=== PATIENT | female | born 2000 | race Two or more races ===

== ENCOUNTER 2023-06-06 10:24 | Outpatient (REF) | payer OTHER, SELFPAY ==
[2023-06-06 12:16] LABS: Estimated Average Glucose 103 mg/dL; Hemoglobin A1c % 5.2 % (<6.0)
[2023-06-07 05:21] LABS: HIV AB/AG Nonreactive (Nonreactive); HIV Num 1 0.05 S/CO (0.00-0.99)
== END 2023-06-06 10:25 | disposition home or self-care (01) ==
LOC: HO.LAB 10:24
PROVIDERS: Visit Provider Family Medicine Adult Medicine
DX: Z13.9 Encounter for screening, unspecified (principal); Z11.4 Encounter for screening for human immunodeficiency virus [HIV]
CPT/HCPCS: 36415; 83036; 87389

== ENCOUNTER 2023-06-18 10:26 | Emergency (ER) | payer OTHER, SELFPAY ==
[2023-06-18 10:32] VITALS: BP 97/55; PULSE 63; RESP 16; TEMP 36.6; O2SAT 100; BMI 19.6
[2023-06-18 10:46] LABS: MANUAL DIFF FLAG NO
[2023-06-18 10:47] LABS: Basophils Percent Auto 0.3 % (0-2); Eosinophils Absolute Auto 0.1 X10*3/uL (0.0-0.4); Eosinophils Percent Auto 1.9 % (0-4); Hematocrit 36.3 % (37.0-47.0); Hemoglobin 12.4 g/dl (12.0-16.0); Imm Gran Abs Auto 0.01 X10*3/uL (0.00-0.03); Imm Gran Pct Auto 0.2 % (0.0-0.4); Lymphocytes Absolute Auto 1.3 X10*3/uL (1.2-4.9); Lymphocytes Percent Auto 21.2 % (20-40); Mean Corpuscular HGB Conc 34.2 g/dl (31.0-35.0); Mean Corpuscular Hemoglobin 30.2 pg (27.0-33.0); Mean Corpuscular Volume 88.3 fL (80.0-98.0); Mean Platelet Volume 10.2 fL (9.4-12.3); Monocytes Absolute Auto 0.5 X10*3/uL (0.1-1.2); Monocytes Percent Auto 7.6 % (2-11); Neutrophils Absolute Auto 4.3 x10*3/uL (2.0-8.3); Neutrophils Percent Auto 68.8 % (45-73); Platelet Count 236 X10*3/uL (160-400); Red Blood Count 4.11 X10*6/uL (4.20-5.50); Red Cell Distribution Width 12.2 % (11.0-16.0); White Blood Count 6.2 X10*3/uL (4.8-10.8)
--- NOTE | 2023-06-18 10:52 | ED_ITS ---
HPI - General Adult General Chief complaint: Headache Stated complaint: migraine Time Seen by Provider: 06/18/23 10:51 Source: patient Mode of arrival: ambulatory Limitations: no limitations History of Present Illness HPI narrative: Patient is a 23 year old assigned female at with a history of migraines presenting to the emergency department today with a migraine and nausea. Patient states that over the last day she has had a migraine that is not resolving. Patient states that she believes she is nauseous because of the food [employer] is feeding her. Patient denies any dizziness, lightheadedness, vomiting, fever, chills, blurry vision, double vision, loss of vision, chest pain, difficulty breathing, shortness of breath, back pain, night sweats, pain with urination, increased urinary frequency, increased urinary urgency, blood in her urine or stool, syncope or a near syncopal episode, recent trauma or falls, bowel incontinence, bladder incontinence, bowel retention, bladder retention, or any other complaints at this time. Onset (ago): hour(s) Relieving factors: none Exacerbating factors: none Associated symptoms: headaches and nausea/vomiting Treatments prior to arrival: other (sumatriptan) Related Data Previous Rx's Medication Instructions Recorded ondansetron 4 mg disintegrating 4 mg PO Q8H 3 days #9 tabs 06/18/23 tablet vdhgmpjcwb-jvjervkzgtlqt-tfncyxzx 1 cap PO TID PRN pain #14 caps 06/19/23 50 mg-300 mg-40 mg capsule (Fioricet) ketorolac 10 mg tablet 10 mg PO Q8H PRN pain #10 tabs 06/19/23 Allergies Allergy/AdvReac Type Severity Reaction Status Date / Time No Known Allergies Allergy Verified 06/18/23 10:32 Review of Systems 2 Constitutional: Constitutional: Reports no additional constitutional complaints, Denies chills, Denies fever(s), Reports headache(s) and Denies night sweats Eyes: Eyes: Reports no additional eye complaints, Denies blurry vision, Denies change in vision, Denies diplopia, Denies eye discharge, Denies loss of vision and Denies eye pain ENT: Denies dizziness and Reports headache(s) Cardiovascular: Cardiovascular: Reports no additional cardiovascular complaints, Denies chest pain, Denies lightheadedness, Denies Loss of Consciousness and Denies dyspnea Respiratory: Respiratory: Reports no additional respiratory complaints and Denies dyspnea Gastrointestinal: Gastrointestinal: Reports no additional gastrointestinal complaints, Denies melena, Denies hematochezia, Denies change in bowel habits, Denies change in stool character, Reports nausea and Denies vomiting Genitourinary: Genitourinary: Denies hematuria, Denies urinary frequency, Denies dysuria, Denies urinary incontinence, Denies urinary hesitancy and Denies urinary urgency Musculoskeletal: Musculoskeletal: Reports no additional musculoskeletal complaints, Denies numbness and Denies tingling Neurologic: Denies dizziness, Reports headache(s), Denies loss of vision, Denies numbness and Denies tingling Psychiatric: Psychiatric: Reports no additional psychiatric complaints Endocrine: Endocrine: Reports no additional endocrine complaints Hematologic/Lymphatic: Hematologic/Lymphatic: Reports no additional hematologic/lymphatic complaints Allergic/Immunologic: Allergic/Immunologic: Reports no additional allergic/immunologic complaints [facility] Past Medical History Attestation statement: The following information was validated with the patient. Source: old records reviewed and nursing notes reviewed Medical History (Updated 06/19/23 @ 01:35 by Geena Olsen MD) Migraine Social History Social History Smoked in Last 30 Days: No Advance Directives: No Advance Directives Information Provided: No Patient : No Physical Exam ED Vital Signs: Vital Signs - 24 hr 06/18/23 10:32 06/18/23 10:57 06/18/23 13:32 Temperature 97.9 F 98.0 F Pulse Rate 63 75 74 Respiratory Rate 16 16 16 Blood Pressure 97/55 L 107/74 109/76 Pulse Oximetry 100 100 100 Oxygen Delivery Method Room Air Room Air Room Air 06/18/23 16:09 06/18/23 16:10 Temperature 97.8 F 97.9 F Pulse Rate 77 77 Respiratory Rate 14 14 Blood Pressure 113/70 113/70 Pulse Oximetry 99 99 Oxygen Delivery Method Room Air Room Air BMI result Body Mass Index 19.6 Const General: cooperative, no acute distress, alert and awake Nutritional Appearance: well nourished Orientation/consciousness: patient oriented x3 Limitations: no limitations HENMT Head: Yes normal to inspection and Yes atraumatic Ears: hearing grossly normal bilaterally and external ears normal General nose exam: Normal external nose present, no nasal discharge noted and no epistaxis Face and sinus: Yes normal facial exam, No abrasion and No laceration Mouth: Normal oral and palatal mucosa present, no drooling and no muffled voice Eyes General: appearance normal, both eyes and all related structures Periorbital: periorbital findings normal Eyelids: Yes eyelids normal Conjunctivae: conjunctivae normal Pupils: Equal, round and reactive pupils present EOM: EOMs intact bilaterally Neck Neck: Yes normal visual inspection, Yes full ROM and Yes no lymphadenopathy Chest Chest palpation & inspection: normal inspection of the chest Resp Effort & Inspection: normal respiratory effort and able to speak in complete sentences GI Inspection: Yes normal to inspection Palpation (GI): Soft to palpation, not firm, nontender and no guarding Neuro General: patient oriented x3 and moves all extremities Cranial nerves: Yes Equal, round and reactive pupils present Cognition (Neuro): normal cognition Motor exam (neuro): 5/5 motor strength present throughout Sensory Exam: Normal double simultaneous stimulation for sensation Coordination: ggbpqp-gv-wzgu test normal Extrem General: Yes normal to inspection, Yes full ROM and Yes capillary refill normal Psych Appearance: grossly normal Mental Status: mental status grossly normal Affect: normal affect Attitude: cooperative Thought process: Normal thought process present Thought content: Normal thought content present Insight: Good insight present (Psych) Medications Administered Discontinued Medications Generic Name Dose Route Start Last Admin Trade Name Aryanq PRN Reason Stop Dose Admin Hydromorphone HCl 0.5 mg 06/18/23 12:16 06/18/23 12:39 Hydromorphone Hcl 0.5 Mg/0.5 Ml Syringe IVPUSH 06/18/23 12:17 0.5 mg ONCE ONE Administration Protocol Sodium Chloride 1,000 mls @ 999 mls/hr 06/18/23 11:00 06/18/23 12:27 Ns IV 06/18/23 12:00 Infused .Q1H1M DHARMESH Infusion Sodium Chloride 1,000 mls @ 999 mls/hr 06/18/23 13:00 06/18/23 15:45 Ns IV 06/18/23 14:00 Infused .Q1H1M DHARMESH Infusion Ketorolac Tromethamine 15 mg 06/18/23 10:52 06/18/23 11:09 Ketorolac Tromethamine 15 Mg/Ml Vial IVPUSH 06/18/23 10:53 15 mg ONCE ONE Administration Ondansetron HCl 4 mg 06/18/23 10:52 06/18/23 11:08 Ondansetron Hcl 4 Mg/2 Ml Vial IVPUSH 06/18/23 10:53 4 mg ONCE ONE Administration Medical Decision Making Medical Decision Making [facility] Narrative: Patient is a 23 year old assigned female at with no reported medical history presenting to the emergency department today with a migraine headache. Patient's physical exam was unremarkable. Patient's blood work was unremarkable. I explained my physical exam findings as well as all test results to the patient. I answered all questions asked by the patient. I stressed the importance of the patient taking her medication as prescribed. I stressed the importance of the patient following up with her primary care provider. I stressed the importance of the patient returning to the emergency department immediately if her symptoms were to worsen or if she were to develop any dizziness, shortness of breath, difficulty breathing, chest pain, blurry vision, loss of vision, nausea, vomiting, abdominal pain, fever, chills, back pain, or any other complaints. Patient verbalized agreement and understanding with this treatment plan and discharge. Differential Diagnosis Differential Diagnoses: The differential diagnosis associated with the presentation includes Migraine headache Headache Admission/Observation Consideration of admission/observation: Escalation of care including admission/observation considered Patient would have been admitted to the hospital had her work up had any findings where hospital admission was appropriate and her clinical presentation warranted hospital admission. Lab Data [facility] Lab Attestation statement: I reviewed the patient's lab results. My interpretation of these results are in the [facility] Rationale portion of this note. 06/18/23 10:42 06/18/23 10:42 Labs: Lab Results 06/18/23 Range/Units 10:42 WBC 6.2 (4.8-10.8) X10*3/uL RBC 4.11 L (4.20-5.50) X10*6/uL Hgb 12.4 (12.0-16.0) g/dl Hct 36.3 L (37.0-47.0) % MCV 88.3 (80.0-98.0) fL MCH 30.2 (27.0-33.0) pg MCHC 34.2 (31.0-35.0) g/dl RDW 12.2 (11.0-16.0) % Plt Count 236 (160-400) X10*3/uL MPV 10.2 (9.4-12.3) fL Immature Gran % (Auto) 0.2 (0.0-0.4) % Neut % (Auto) 68.8 (45-73) % Lymph % (Auto) 21.2 (20-40) % [place] % (Auto) 7.6 (2-11) % Eos % (Auto) 1.9 (0-4) % Baso % (Auto) 0.3 (0-2) % Lymph # (Auto) 1.3 (1.2-4.9) X10*3/uL [place] # (Auto) 0.5 (0.1-1.2) X10*3/uL Eos # (Auto) 0.1 (0.0-0.4) X10*3/uL Baso # (Auto) 0.0 (0.0-0.2) X10*3/uL Abs Immat Gran (auto) 0.01 (0.00-0.03) X10*3/uL Absolute Neuts (auto) 4.3 (2.0-8.3) x10*3/uL Absolute Nucleated RBC 0.000 (0.0-0.012) X10*3/uL Nucleated RBC % (auto) 0.0 (0.0-0.2) /100WBC Sodium 140 (135-145) mmol/L Potassium 3.9 (3.3-5.1) mmol/L Chloride 105 (96-108) mmol/L Carbon Dioxide 27 (22-29) mmol/L Anion Gap 12 (12-20) BUN 12 (9-16) mg/dL Creatinine 0.69 (0.5-1.4) mg/dL Estim Creat Clear Calc 82.5 Estimated GFR > 60 Random Glucose 88 (60-115) mg/dL Calcium 9.2 (8.4-10.2) mg/dL Total Bilirubin 0.4 (0.0-1.0) mg/dL AST 13 (5-31) U/L ALT 14 (0-31) U/L Alkaline Phosphatase 48 (39-117) U/L Total Protein 6.9 (6.5-8.0) g/dL Albumin 4.2 (3.5-5.0) g/dL Beta HCG, Quant < 2 mIU/mL Critical Care Time Critical Care Time Critical Care Time: Yes Total Critical Care Time: 79 Attestation: I spent 79 minutes of Critical Care Time with this patient. This does not include time spent on separately reported billable procedures. Discharge Plan Discharge Clinical Impression: Migraine Patient Disposition: Home, Self-Care Instructions: Migraine Headache (ED) Additional Instructions: Follow up with your primary care provider. Return to the emergency department immediately if your symptoms worsen or if you develop any dizziness, shortness of breath, difficulty breathing, chest pain, blurry vision, loss of vision, nausea, vomiting, abdominal pain, fever, chills, back pain, or any other complaints. Prescriptions: New ondansetron 4 mg tablet,disintegrating 4 mg PO Q8H 3 Days Qty: 9 0RF No Action xzfsjdqull-kkhmwyqtdpulc-onin [Fioricet] 50-300-40 mg capsule 1 cap PO TID PRN (Reason: pain) Qty: 14 0RF ketorolac 10 mg tablet 10 mg PO Q8H PRN (Reason: pain) Qty: 10 0RF Rx Instructions: Do not use NSAIDs with this medication Referrals: [facility] [place] [facility] [place] [Provider Group] (Call to establish and follow up with a primary care provider. If you already have a primary care provider, please follow up with them.) [facility] [place] [place] [facility] [Provider Group] (Call to establish and follow up with a primary care provider. If you already have a primary care provider, please follow up with them.) [facility] [place] [place] [facility],Julia [Provider Group] (Call to establish and follow up with a primary care provider. If you already have a primary care provider, please follow up with them.) Stand Alone Forms: Work/School Release Interventions: ED Discharge Assessment Last Done: 06/18/23 16:10 Discharge Date/Time: 06/18/23 16:12 Print Language: Bengali
[2023-06-18 10:57] VITALS: BP 107/74; PULSE 75; RESP 16; TEMP 36.7; O2SAT 100
[2023-06-18 11:07] LABS: Alanine Aminotransferase 14 U/L (0-31); Albumin Level 4.2 g/dL (3.5-5.0); Alkaline Phosphatase 48 U/L (39-117); Anion Gap 12 (12-20); Aspartate Amino Transferase 13 U/L (5-31); Bilirubin Total 0.4 mg/dL (0.0-1.0); Blood Urea Nitrogen 12 mg/dL (9-16); Calcium 9.2 mg/dL (8.4-10.2); Carbon Dioxide 27 mmol/L (22-29); Chloride 105 mmol/L (96-108); Creatinine Clr Calc Pharmacy 82.5; Estimated Glomerular Filt Rate > 60; Glucose Random 88 mg/dL (60-115); Potassium 3.9 mmol/L (3.3-5.1); Sodium 140 mmol/L (135-145); Total Protein 6.9 g/dL (6.5-8.0)
[2023-06-18] MEDS: ondansetron HCL 4 MG/2 ML VIAL IVPUSH (11:08)
[2023-06-18] MEDS: Ketorolac Tromethamine 15 MG/ML VIAL IVPUSH (11:09)
[2023-06-18] MEDS: 0.9 % Sodium Chloride 1,000 ML 999 ML IV ×2 (11:11→13:14)
--- NOTE | 2023-06-18 11:14 | PC.NURSE ---
Pt coming from school. Pt reports migraine since last night along with nausea and upset stomach. Pt does report hx of migraines, takes sumatriptan at home but reports it does work. Pt reports 10/10 pain in her head at this time. Pt is alert and oriented, breathing even and unlabored, skin WNL. Pt resting in bed, IV placed in left AC 20G, pt medicated per MAY. Pt requests to sleep at this time.
[2023-06-18 11:34] LABS: HCG Quantitative < 2 mIU/mL
[2023-06-18] MEDS: HYDROmorphone HCl 0.5 MG/0.5 ML SYRINGE IVPUSH (12:39)
[2023-06-18 13:32] VITALS: BP 109/76; PULSE 74; RESP 16; O2SAT 100
[2023-06-18 16:09] VITALS: BP 113/70; PULSE 77; RESP 14; TEMP 36.6; O2SAT 99
[2023-06-18 16:10] VITALS: BP 113/70; PULSE 77; RESP 14; TEMP 36.6; O2SAT 99
--- NOTE | 2023-06-18 16:10 | PC.NURSE ---
Pt reported she has a ride from her school coming to get her. Pt is alert and oriented, ambulatory w/ steady gait and does void upon discharge.
== END 2023-06-18 16:12 | disposition home or self-care (01) ==
PROVIDERS: Physician Assistant Medical; Emergency Provider Emergency Medicine
DX: G43.909 Migraine, unspecified, not intractable, without status migrainosus (principal); R11.2 Nausea with vomiting, unspecified; Z79.899 Other long term (current) drug therapy
CPT/HCPCS: 36415; 80053; 84702; 85025; 96361; 96374; 96375; 99285; J1170; J1885; J2405

== ENCOUNTER 2023-06-18 20:27 | Emergency (ER) | payer OTHER, SELFPAY ==
--- NOTE | ~2023-06-18 | CT_ITS ---
EXAMINATION: CT HEAD WITHOUT CONTRAST CLINICAL INFORMATION: Headache. COMPARISON: None available. TECHNIQUE: Contiguous axial imaging was performed from the skull base to vertex without intravenous administration of contrast. This CT examination was performed using dose optimization techniques as appropriate, variously including the following: *Automated exposure control *Adjustment of mA and/or kV according to patient size (this includes techniques or standardized protocols for targeted exams where dose is matched to indication/reason for exam; i.e. extremities or head) *Use of iterative reconstruction technique DLP: 559 mGy-cm FINDINGS: The lateral, third and fourth ventricles are normally outlined. The cortical sulci and basal cisterns are normally outlined as well. There is a questionable area of diminished attenuation right occipital lobe. There is no hemorrhage or midline shift. The extra-axial spaces are unremarkable. Calvarium: Intact. Maxillofacial sinuses and mastoids: Clear as visualized. CT/CT head/brain wo IV con IMPRESSION: 1. Questionable area of diminished attenuation right occipital lobe. This could be artifactual. 2. No hemorrhage.
[2023-06-18 20:32] VITALS: BP 122/68; PULSE 95; RESP 22; TEMP 36.8; O2SAT 100; BMI 19.6
--- NOTE | 2023-06-18 23:50 | ED_ITS ---
HPI - General Adult General Chief complaint: General Medical Stated complaint: Difficulty breathing after prescribed meds Time Seen by Provider: 06/18/23 23:38 Source: patient Mode of arrival: ambulatory Limitations: no limitations History of Present Illness HPI narrative: Patient comes to the emergency room complaining of a migraine headache. Patient was seen here earlier today for a migraine headache, discharged home, states that she was having more headache, nausea, heaviness reading but no difficulty breathing or swallowing. Patient states that she has sumatriptan at home and is not helping her migraine headache. Related Data Previous Rx's Medication Instructions Recorded ondansetron 4 mg disintegrating 4 mg PO Q8H 3 days #9 tabs 06/18/23 tablet [id number]-kayqaatblekgn-okvcbwhc 1 cap PO TID PRN pain #14 caps 06/19/23 50 mg-300 mg-40 mg capsule (Fioricet) ketorolac 10 mg tablet 10 mg PO Q8H PRN pain #10 tabs 06/19/23 Allergies Allergy/AdvReac Type Severity Reaction Status Date / Time No Known Allergies Allergy Verified 06/18/23 10:32 Review of Systems Review of Systems: Constitutional : No Weight loss, No Fever, No Chills, No Night Sweats, No Fatigue, No Malaise ENT/Mouth : No Hearing loss, No Ear Pain, No Nasal Congestion, No Sinus Pain, No Hoarseness, No sore throat, No Rhinorrhea, No Swallowing Difficulty Eyes: No Eye Pain, No Swelling, No Redness, No Foreign Body, No Discharge, No Vision Changes Cardiovascular : No Chest Pain, No SOB, No Dyspnea on Exertion, No Orthopnea, No Edema, No Palpitations Respiratory : No Cough, No Sputum, No Wheezing, No Smoke Exposure, No Dyspnea Gastrointestinal : No Nausea, No Vomiting, No Diarrhea, No Constipation, No abdominal Pain, No Hematochezia, No Melena Genitourinary : no irregular bleeding, No Dysuria, No Urinary Frequency, No Hematuria, No Urinary Incontinence, No Urgency, No Flank Pain, No Urinary Flow Changes, No Hesitancy Musculoskeletal : No joint pain, No Myalgias, No Joint Swelling Skin : No Skin Lesions, No rash Neuro : No Weakness, No Numbness, No Paresthesias, No Loss of Consciousness, No Dizziness, complaining of migraine headache Psych : No Anxiety/Panic, No Depression, No SI/HI/AH/VH, No Social Issues, Heme/Lymph: No Bruising, No Bleeding,No Lymphadenopathy Endocrine : No Polyuria, No Polydipsia, No Temperature Intolerance [facility] Past Medical History Medical History (Updated 06/19/23 @ 01:35 by Geena Olsen MD) Migraine Social History Social History Smoked in Last 30 Days: No Advance Directives: No Advance Directives Information Provided: No Patient : No Physical Exam ED Vital Signs: Vital Signs - 24 hr 06/18/23 20:32 06/19/23 00:12 Temperature 98.3 F 97.6 F Pulse Rate 95 75 Respiratory Rate 22 H 16 Blood Pressure 122/68 121/71 Pulse Oximetry 100 100 Oxygen Delivery Method Room Air Room Air BMI result Body Mass Index 19.6 Const Other: Appearance: Alert. Oriented X3. No acute distress. Eyes: Pupils equal, round and reactive to light. Patient has photophobia ENT: Pharynx normal. Neck: Normal inspection. Neck supple. No lymph nodes noted. No crepitus CVS: Normal heart rate and rhythm. Pulses normal. Normal S1 and S2 Respiratory: No respiratory distress. Breath sounds normal. No Wheezing. No rales Abdomen: Soft and nontender. No rigidity. No distention. Skin: Skin warm and dry. Normal skin color. Normal skin turgor. Extremities: No lower extremity edema. No Lacerations. No Rash Neuro: Oriented X 3. No motor deficit. No sensory deficit. Moving all extremities. No slurred speech. CN 2 through 12 grossly intact Psych: calm, cooperative, normal affect Course Course Course Narrative: -patient receiving IV fluids, ketorolac. Last dose was over 14 hours ago,, Benadryl, and Fioricet -I reviewed patient's labs from earlier today, no acute hematology or chemistry abnormalities. -patient has no neurological deficits Medications Administered Discontinued Medications Generic Name Dose Route Start Last Admin Trade Name Freq PRN Reason Stop Dose Admin Acetaminophen/Butalbital/Caffeine 1 tab 06/18/23 23:50 06/19/23 00:39 Butalb/Acetamin/Caff 50/325/40 Tablet PO 06/18/23 23:51 1 tab ONCE ONE Administration Diphenhydramine HCl 50 mg 06/18/23 23:49 06/19/23 00:39 Diphenhydramine Hcl 50 Mg/Ml Vial IVPUSH 06/18/23 23:50 50 mg ONCE ONE Administration Sodium Chloride 1,000 mls @ 999 mls/hr 06/18/23 23:49 06/19/23 01:50 Ns IVCONT 06/19/23 00:49 Infused .Q1H1M ONE Infusion Ketorolac Tromethamine 30 mg 06/18/23 23:49 06/19/23 00:39 Ketorolac Tromethamine 30 Mg/Ml Vial IVPUSH 06/18/23 23:50 30 mg ONCE ONE Administration Metoclopramide HCl 10 mg 06/18/23 23:49 06/19/23 00:39 Metoclopramide Hcl 10 Mg/2 Ml Vial IVPUSH 06/18/23 23:50 10 mg ONCE ONE Administration Medical Decision Making Medical Decision Making MDM Narrative: -patient states that she has improvement with her headache. -discussed with the patient to follow-up with neurology. -since sumatriptan does not work, I switched her medication to Fioricet. -my interpretation of head CT: No intracranial abnormality. No bleed. Differential Diagnosis Differential Diagnoses: The differential diagnosis associated with the presentation includes (Migraine headache, tension headache, medication side effect) Admission/Observation Consideration of admission/observation: Escalation of care including admission/observation considered (Given patient's symptoms, admission was considered) Independent Interpretation I performed an independent interpretation of an: CT Scan Critical Care Time Critical Care Time Critical Care Time: Yes Total Critical Care Time: 60 Attestation: I have personally provided critical care time. Time includes review of lab data, radiology results, discussion with consultants, and monitoring for potential decompensation. Intervention performed as documented. Discharge Plan Discharge Clinical Impression: Migraine Patient Disposition: Home, Self-Care Instructions: Migraine Headache (ED) Additional Instructions: Please follow-up with your primary care physician tomorrow. If you have any worsening or new symptoms, please return to the emergency room or call 911 Prescriptions: New zazufsbvvm-msrsztuuphujy-jyhp [Fioricet] 50-300-40 mg capsule 1 cap PO TID PRN (Reason: pain) Qty: 14 0RF ketorolac 10 mg tablet 10 mg PO Q8H PRN (Reason: pain) Qty: 10 0RF Rx Instructions: Do not use NSAIDs with this medication No Action ondansetron 4 mg tablet,disintegrating 4 mg PO Q8H 3 Days Qty: 9 0RF
[2023-06-19 00:12] VITALS: BP 121/71; PULSE 75; RESP 16; TEMP 36.4; O2SAT 100
[2023-06-19] MEDS: 0.9 % Sodium Chloride 1,000 ML 999 ML IVCONT (00:36)
[2023-06-19] MEDS: diphenhydrAMINE HCL 50 MG/ML VIAL IVPUSH (00:39)
[2023-06-19] MEDS: Ketorolac Tromethamine 30 MG/ML VIAL IVPUSH (00:39)
[2023-06-19] MEDS: Butalb/Acetamin/Caff 50/325/40 TABLET 1 TAB PO (00:39)
[2023-06-19] MEDS: Metoclopramide HCl 10 MG/2 ML VIAL IVPUSH (00:39)
[2023-06-19 03:20] VITALS: BP 112/67; PULSE 90; RESP 16; TEMP 36.6; O2SAT 100
[2023-06-19 04:33] VITALS: BP 112/67; PULSE 90; RESP 17; TEMP 36.6; O2SAT 98
== END 2023-06-19 04:34 | disposition home or self-care (01) ==
PROVIDERS: Emergency Provider Emergency Medicine
DX: G43.909 Migraine, unspecified, not intractable, without status migrainosus (principal); R06.02 Shortness of breath; R11.2 Nausea with vomiting, unspecified; Z79.899 Other long term (current) drug therapy
CPT/HCPCS: 70450; 96361; 96374; 96375; 99284; J1200; J1885; J2765

== ENCOUNTER 2023-06-21 15:05 | Emergency (ER) | payer OTHER, SELFPAY ==
[2023-06-21 15:16] VITALS: BP 114/72; PULSE 70; O2SAT 98
[2023-06-21 15:56] VITALS: BP 120/65; PULSE 88; RESP 14; TEMP 36.6; O2SAT 99; BMI 19.5
--- NOTE | 2023-06-21 15:59 | ED_ITS ---
HPI - General Adult General Chief complaint: Headache Stated complaint: progressive migraine and vertigo. Seen 4 days ago Time Seen by Provider: 06/21/23 20:52 History of Present Illness HPI narrative: The patient is a 23-year-old female who presents complaining of a headache. The patient had come here 3 days ago complaining of a headache and was thought to have a migraine headache. She was treated and released. She returned later the same day complaining of a headache. At the 2nd visit she had a CT scan in addition to the treatment for her headache. The patient felt better. The CT scan showed a questionable abnormality in the occipital lobe but she had no visual field deficits and she looked well and was discharged. Apparently the patient presented following day to [facility]'s Emergency room still complaining of a headache. An MRI was done which showed no abnormalities. The patient says that last night she started to feel her headache returned. This was associated with nausea. Today she apparently had some syncopal episodes. She has a history of vasovagal syncope. The patient is currently participating in [employer], staying at a [employer] at the [facility]. She is apparently new in the program. Prior to entering the program she had been living in [place] with a somewhat tenuous living situation. She would tried living and then with her sister. She says that at 1 point she was almost homeless. The patient says that since starting with [employer] she has had a lot of difficult interpersonal reactions with other women in the program. She finds the stressful. She says that she has had depression before but she has never been hospitalized for depression. She finds the transition to [facility] very stressful. She has not suicidal. l Related Data Previous Rx's Medication Instructions Recorded ondansetron 4 mg disintegrating 4 mg PO Q8H 3 days #9 tabs 06/18/23 tablet [id number]-nxpomwcxvlmid-arontmrp 1 cap PO TID PRN pain #14 caps 06/19/23 50 mg-300 mg-40 mg capsule (Fioricet) ketorolac 10 mg tablet 10 mg PO Q8H PRN pain #10 tabs 06/19/23 Allergies Allergy/AdvReac Type Severity Reaction Status Date / Time No Known Allergies Allergy Verified 06/18/23 10:32 Review of Systems 2 Review of Systems: Yes all other systems are reviewed and are negative PMFSH Past Medical History Medical History (Updated 06/21/23 @ 23:05 by Presley Barbour MD) Migraine Social History Social History Advance Directives: No Advance Directives Information Provided: No Physical Exam ED Vital Signs: Vital Signs - 24 hr 06/21/23 23:23 06/22/23 00:24 Temperature 98.0 F 98.0 F Pulse Rate 75 75 Respiratory Rate 18 18 Blood Pressure 110/70 110/70 Pulse Oximetry 98 98 Oxygen Delivery Method Room Air Room Air BMI result Body Mass Index 19.5 Const Other: The patient is a healthy-looking 23-year-old who was awake and alert. She did not seem uncomfortable or in distress. HENMT Other: Face is symmetrical. Mucous membranes moist. Eyes Other: Pupils are round equal, conjunctivae clear, extraocular movements intact Resp Effort & Inspection: normal respiratory effort Auscultation: clear to auscultation bilaterally Cardio Rate: regular rate Rhythm: regular rhythm Heart sounds: S1 normal heart sound present and S2 normal heart sound present Skin Other: Skin is dry and unremarkable Neuro Other: The patient is awake and alert. She looks entirely well. She had a nontoxic demeanor. Speech was clear eye movements intact. Moving all 4 extremities symmetrically with normal coordination. Grossly neurologically intact Extrem Other: No peripheral edema Course Course Course Narrative: RME: 23 yold female presents to the ED for migraine exacerbation. Patient seen here on tuesday and had normal MRI at [facility]. labs ordered. Medications Administered Discontinued Medications Generic Name Dose Route Start Last Admin Trade Name Marcellus PRN Reason Stop Dose Admin Diphenhydramine HCl 25 mg 06/21/23 21:18 06/21/23 21:37 Diphenhydramine Hcl 50 Mg/Ml Vial IVPUSH 06/21/23 21:19 25 mg ONCE ONE Administration Sodium Chloride 1,000 mls @ 999 mls/hr 06/21/23 21:30 06/21/23 21:33 Ns IV 06/21/23 22:30 999 mls/hr .Q1H1M DHARMESH Administration Ketorolac Tromethamine 15 mg 06/21/23 21:18 06/21/23 21:37 Ketorolac Tromethamine 15 Mg/Ml Vial IVPUSH 06/21/23 21:19 15 mg ONCE ONE Administration Metoclopramide HCl 10 mg 06/21/23 21:18 06/21/23 21:38 Metoclopramide Hcl 10 Mg/2 Ml Vial IVPUSH 06/21/23 21:19 10 mg ONCE ONE Administration Medical Decision Making Medical Decision Making [facility] Narrative: The patient is a 23-year-old female who presents complaining of a headache. She was here 3 days ago complained of a headache and was treated for a migraine. She was treated and released and then returned several hours later still complaining of the headache. She had a CT scan of the head that was essentially normal with a question of a subtle possible abnormality in the right occipital lobe. She had no visual field deficits to correlate with any occipital lobe abnormality. She was discharged. Severe headache and went to the [facility] ER where she had an MRI that was normal. She now returns again with a complaint of headache and frustration that she continues to have these headaches. During my interview the patient looked entirely well and did not seem to show any evidence of discomfort. She spoke a great deal about the psychosocial difficulty she is having a [employer]. She seems to have difficulty with her peers at [employer]. She seems to get along well with the staff. She seems to like the director of the program and she also apparently has seen a therapist whom she likes. She has not suicidal. My overall impression is that the patient has headaches are probably a manifestation of the stress she has been experiencing in her new program. The patient asked a lot about additional testing or evaluation that could be done for her headaches. I explained that given her normal MRI and the lack of any other concerning findings on her exam and her workup that a spinal tap is probably not indicated. That. Ultimately she was treated with ketorolac, metoclopramide, and diphenhydramine that seemed to feel better and was comfortable being discharged to returned to her program. With the patient's permission I had spoken to her nutrition program instructor who seems to be aware of the patient's psychosocial stressors. Lab Data 06/21/23 21:33 06/21/23 21:33 Labs: Lab Results 06/21/23 Range/Units 21:33 WBC 7.8 (4.8-10.8) X10*3/uL RBC 4.02 L (4.20-5.50) X10*6/uL Hgb 12.3 (12.0-16.0) g/dl Hct 36.4 L (37.0-47.0) % MCV 90.5 (80.0-98.0) fL MCH 30.6 (27.0-33.0) pg MCHC 33.8 (31.0-35.0) g/dl RDW 12.5 (11.0-16.0) % Plt Count 249 (160-400) X10*3/uL MPV 10.3 (9.4-12.3) fL Immature Gran % (Auto) 0.1 (0.0-0.4) % Neut % (Auto) 57.8 (45-73) % Lymph % (Auto) 31.7 (20-40) % [place] % (Auto) 8.2 (2-11) % Eos % (Auto) 2.1 (0-4) % Baso % (Auto) 0.1 (0-2) % Lymph # (Auto) 2.5 (1.2-4.9) X10*3/uL [place] # (Auto) 0.6 (0.1-1.2) X10*3/uL Eos # (Auto) 0.2 (0.0-0.4) X10*3/uL Baso # (Auto) 0.0 (0.0-0.2) X10*3/uL Abs Immat Gran (auto) 0.01 (0.00-0.03) X10*3/uL Absolute Neuts (auto) 4.5 (2.0-8.3) x10*3/uL Absolute Nucleated RBC 0.000 (0.0-0.012) X10*3/uL Nucleated RBC % (auto) 0.0 (0.0-0.2) /100WBC Sodium 144 (135-145) mmol/L Potassium 4.8 D (3.3-5.1) mmol/L Chloride 109 H (96-108) mmol/L Carbon Dioxide 27 (22-29) mmol/L Anion Gap 13 (12-20) BUN 10 (9-16) mg/dL Creatinine 0.77 (0.5-1.4) mg/dL Estim Creat Clear Calc 78.1 Estimated GFR > 60 Random Glucose 100 (60-115) mg/dL Calcium 9.3 (8.4-10.2) mg/dL Magnesium 1.8 (1.6-2.6) mg/dL Total Bilirubin 0.3 (0.0-1.0) mg/dL Direct Bilirubin 0.1 (0.0-0.5) mg/dL AST 15 (5-31) U/L ALT 14 (0-31) U/L Alkaline Phosphatase 44 (39-117) U/L Troponin I High Sens < 2.7 (<3.5-17.0) ng/L C-Reactive Protein < 0.04 (< or = 0.50) mg/dL Total Protein 7.0 (6.5-8.0) g/dL Albumin 4.1 (3.5-5.0) g/dL Beta HCG, Quant < 2 mIU/mL Ethyl Alcohol < 10 mg/dL Discharge Plan Discharge Clinical Impression: Migraine headache Patient Disposition: Home, Self-Care Additional Instructions: Your testing today is very reassuring. I am also very reassured by the normal MRI you had at [facility] the other day. Please follow up with your regular doctor's office. Return to the emergency room if worse Prescriptions: No Action ondansetron 4 mg tablet,disintegrating 4 mg PO Q8H 3 Days Qty: 9 0RF ieqrhxxyqx-fqtvgndshlyyn-trdf [Fioricet] 50-300-40 mg capsule 1 cap PO TID PRN (Reason: pain) Qty: 14 0RF ketorolac 10 mg tablet 10 mg PO Q8H PRN (Reason: pain) Qty: 10 0RF Rx Instructions: Do not use NSAIDs with this medication Interventions: ED Discharge Assessment Last Done: 06/22/23 00:24 Discharge Date/Time: 06/22/23 00:25
--- NOTE | 2023-06-21 21:17 | ECG_ITS ---
Test Reason : HEADACHE Blood Pressure : / mmHG Vent. Rate : 067 BPM Atrial Rate : 067 BPM P-R Int : 116 ms QRS Dur : 072 ms QT Int : 364 ms P-R-T Axes : 072 048 062 degrees QTc Int : 384 ms Normal sinus rhythm with sinus arrhythmia Normal ECG No previous ECGs available Referred By: Presley Barbour Electronically Signed By:Clark Coy
[2023-06-21] MEDS: 0.9 % Sodium Chloride 1,000 ML 999 ML IV (21:33)
[2023-06-21] MEDS: Ketorolac Tromethamine 15 MG/ML VIAL IVPUSH (21:37)
[2023-06-21] MEDS: diphenhydrAMINE HCL 50 MG/ML VIAL 25 MG IVPUSH (21:37)
[2023-06-21 21:38] LABS: MANUAL DIFF FLAG NO
[2023-06-21] MEDS: Metoclopramide HCl 10 MG/2 ML VIAL IVPUSH (21:38)
[2023-06-21 21:39] LABS: Basophils Percent Auto 0.1 % (0-2); Eosinophils Absolute Auto 0.2 X10*3/uL (0.0-0.4); Eosinophils Percent Auto 2.1 % (0-4); Hematocrit 36.4 % (37.0-47.0); Hemoglobin 12.3 g/dl (12.0-16.0); Imm Gran Abs Auto 0.01 X10*3/uL (0.00-0.03); Imm Gran Pct Auto 0.1 % (0.0-0.4); Lymphocytes Absolute Auto 2.5 X10*3/uL (1.2-4.9); Lymphocytes Percent Auto 31.7 % (20-40); Mean Corpuscular HGB Conc 33.8 g/dl (31.0-35.0); Mean Corpuscular Hemoglobin 30.6 pg (27.0-33.0); Mean Corpuscular Volume 90.5 fL (80.0-98.0); Mean Platelet Volume 10.3 fL (9.4-12.3); Monocytes Absolute Auto 0.6 X10*3/uL (0.1-1.2); Monocytes Percent Auto 8.2 % (2-11); Neutrophils Absolute Auto 4.5 x10*3/uL (2.0-8.3); Neutrophils Percent Auto 57.8 % (45-73); Platelet Count 249 X10*3/uL (160-400); Red Blood Count 4.02 X10*6/uL (4.20-5.50); Red Cell Distribution Width 12.5 % (11.0-16.0); White Blood Count 7.8 X10*3/uL (4.8-10.8)
[2023-06-21 22:11] LABS: Ethanol < 10 mg/dL; Troponin-I High Sensitivity < 2.7 ng/L (<3.5-17.0)
[2023-06-21 22:12] LABS: Alanine Aminotransferase 14 U/L (0-31); Albumin Level 4.1 g/dL (3.5-5.0); Alkaline Phosphatase 44 U/L (39-117); Anion Gap 13 (12-20); Aspartate Amino Transferase 15 U/L (5-31); Bilirubin Direct 0.1 mg/dL (0.0-0.5); Bilirubin Total 0.3 mg/dL (0.0-1.0); Blood Urea Nitrogen 10 mg/dL (9-16); C Reactive Protein < 0.04 mg/dL (< or = 0.50); Calcium 9.3 mg/dL (8.4-10.2); Carbon Dioxide 27 mmol/L (22-29); Chloride 109 mmol/L (96-108); Creatinine Clr Calc Pharmacy 78.1; Estimated Glomerular Filt Rate > 60; Glucose Random 100 mg/dL (60-115); Magnesium 1.8 mg/dL (1.6-2.6); Potassium 4.8 mmol/L (3.3-5.1); Sodium 144 mmol/L (135-145)
[2023-06-21 22:14] LABS: HCG Quantitative < 2 mIU/mL
[2023-06-21 23:23] VITALS: BP 110/70; PULSE 75; RESP 18; TEMP 36.7; O2SAT 98
[2023-06-22 00:24] VITALS: BP 110/70; PULSE 75; RESP 18; TEMP 36.7; O2SAT 98
== END 2023-06-22 00:25 | disposition home or self-care (01) ==
PROVIDERS: Emergency Provider Emergency Medicine
DX: G43.909 Migraine, unspecified, not intractable, without status migrainosus (principal); I49.8 Other specified cardiac arrhythmias; R11.0 Nausea; Z79.899 Other long term (current) drug therapy
CPT/HCPCS: 36415; 80048; 80076; 80307; 83735; 84484; 84702; 85025; 86140; 93005; 96374; 96375; 99284; J1200; J1885; J2765

== ENCOUNTER → 2023-06-21 21:17 | Outpatient (BNV) | payer OTHER, SELFPAY | PROVIDERS: Emergency Provider Emergency Medicine; Visit Provider Internal Medicine Cardiovascular Disease | DX: R51.9 Headache, unspecified (principal) | CPT/HCPCS: 93010 ==

== ENCOUNTER 2023-09-20 20:24 | Emergency (ER) | payer OTHER, SELFPAY ==
[2023-09-20 20:39] VITALS: BP 111/80; BP 118/76; PULSE 104; PULSE 75; RESP 18; TEMP 36.8; O2SAT 100; O2SAT 98; BMI 21.8
--- NOTE | 2023-09-20 20:42 | ED_ITS ---
HPI - General Adult General Chief complaint: Anxiety Stated complaint: ANXIETY Time Seen by Provider: 09/20/23 22:19 Source: patient Mode of arrival: ambulatory Limitations: no limitations History of Present Illness ED Provider: DR. Perry HPI narrative: 23-year-old female brought in by ambulance for evaluation of anxiety, patient with known history of anxiety that usually triggered by stress. Patient has been seen by therapist before for same symptoms, patient also was seen at [facility] earlier today for anxiety-related symptoms and chest pain. Patient now is calm, no headache, no weakness, no numbness. Related Data Previous Rx's ?Medication ?Instructions ?Recorded ondansetron 4 mg disintegrating 4 mg PO Q8H 3 days #9 tabs 06/18/23 tablet rbtngjyemq-depraanvzugtt-uwvqprsf 1 cap PO TID PRN pain #14 caps 06/19/23 50 mg-300 mg-40 mg capsule (Fioricet) ketorolac 10 mg tablet 10 mg PO Q8H PRN pain #10 tabs 06/19/23 Allergies Allergy/AdvReac Type Severity Reaction Status Date / Time No Known Allergies Allergy Verified 09/20/23 20:44 Review of Systems Review of Systems: All other systems are reviewed and are negative Constitutional: Reports as per HPI and Reports no additional constitutional complaints Eyes: Reports as per HPI and Reports no additional eye complaints Reports system reviewed and no additional complaints, except as documented Cardiovascular: Reports as per HPI and Reports no additional cardiovascular complaints Respiratory: Reports as per HPI and Reports no additional respiratory complaints Gastrointestinal: Reports as per HPI and Reports no additional gastrointestinal complaints Genitourinary: Reports no additional female genitourinary complaints Musculoskeletal: Reports no additional musculoskeletal complaints Skin/Breast: Reports system reviewed and no additional complaints, except as docu Psychiatric: Reports no additional psychiatric complaints Endocrine: Reports no additional endocrine complaints Hematologic/Lymphatic: Reports no additional hematologic/lymphatic complaints Allergic/Immunologic: Reports no additional allergic/immunologic complaints Reports system reviewed and no additional complaints, except as documented and Reports Abnormal speech present [facility] Past Medical History Medical History Migraine Social History Social History Smoked in Last 30 Days: No Advance Directives: No Advance Directives Information Provided: No Do you have a plan to hurt others: No Plan Patient : No Physical Exam ED Vital Signs: Vital Signs - 24 hr 09/20/23 20:39 Temperature 98.2 F Pulse Rate 75 Respiratory Rate 18 Blood Pressure 118/76 Pulse Oximetry 100 Oxygen Delivery Method Room Air BMI result Body Mass Index 21.8 Vital signs have been reviewed and appear to be correct. Blood pressure elevated. Heart rate normal. Respiratory rate normal. Temperature normal. Oxygen saturation normal. Appearance: Alert. Oriented X3. No acute distress. Head: Normal external exam. Normocephalic. Atraumatic. No [place] signs noted. No raccoon eyes noted Eyes: PERRLA. EOMI. Conjunctiva and sclera normal. Eyelids normal. ENT: TM's Normal. Pharynx normal. Uvula midline. Moist mucous membranes. No trismus noted. No drooling noted. No muffled voice noted. Neck: Normal inspection. Neck supple. FROM. No adenopathy. Thyroid Normal. No meningeal signs. No neck mass noted. CVS: Normal heart rate and rhythm. Heart sound normal. No murmurs noted. Pulses normal throughout. Respiratory: No respiratory distress. Painless inspiration. Breath sounds normal. No wheezes/rales/rhonchi noted. Chest nontender. No accessory muscle usage noted or decreased air movement noted. Abdomen: Soft and nontender. Bowel sounds normal in all 4 quadrants. No distention noted. No organomegaly noted. No visible injury noted. Back: No CVA tenderness. Full range of motion noted. Skin: Skin warm and dry. Normal skin color. Normal skin turgor. No rashes/lesions/lacerations noted. Extremities: No lower extremity edema. Extremities exhibit normal range of motion. Extremities nontender. Neuro: Oriented X 3. Cranial nerve exam: II-XII are grossly intact No motor deficit. No sensory deficit. Reflexes normal. Patient Orientation: Person, Place, Time and Situation, okay hygiene and groomi ng. Fair eye contact, attentive, no tics or tremors. Level of Consciousness: Awake, Appropriate and Alert Patient Behavior: Appropriate, Guarded, Cooperative and Anxious Mood Description: Constricted, Blunted and Apprehensive Affect Description: Constricted, Blunted and Apprehensive Patient Cognition Impaired: No Ability to Follow Directions: Excellent Speech Pattern: Clear, Appropriate and Spontaneous Speech, nonpressured, spontaneous with regular rate and rhythm, normal volume and prosody. No dysarthria. Memory Description: Intact, Immediate Intact and Short Term Intact Hallucinations: None Delusions: Not Present Thought Process: Intact Thought Content: positive for Intact, positive for Logical, denies Suicidal Ideation and denies Homicidal Ideation. Depressive Symptoms: Not present. Judgement and Insight: Limited but adequate. Course Course Course Narrative: This is a rapid medical exam performed by Larry Perez NP: Additional HPI, ROS, PE not included below will be deferred to primary provider. Patient is a 23-year-old female presenting to the emergency department via EMS with complaint of anxiety. Seen at [facility] earlier today for same, had an EKG and was given migraine medication, then discharged. Denies SI/HI. Denies chest pain, palpitations, or dyspnea. Reevaluation(s) Reevaluation #1: 23-year-old female history of anxiety came in with acute anxiety, admitted to going through stress, patient now is calm. Time: 22:50 Medical Decision Making Differential Diagnosis Differential Diagnoses: The differential diagnosis associated with the presentation includes (Anxiety, electrolyte derangement, severe anemia, SI, acute psychosis.) Admission/Observation Consideration of admission/observation: Escalation of care including admission/observation considered Discharge Plan Discharge Clinical Impression: Acute anxiety Patient Disposition: Home, Self-Care Instructions: Anxiety (ED) Prescriptions: No Action ondansetron 4 mg tablet,disintegrating 4 mg PO Q8H 3 Days Qty: 9 0RF ulsiymbkac-kvrnlvzdtldty-pthk [Fioricet] 50-300-40 mg capsule 1 cap PO TID PRN (Reason: pain) Qty: 14 0RF ketorolac 10 mg tablet 10 mg PO Q8H PRN (Reason: pain) Qty: 10 0RF Rx Instructions: Do not use NSAIDs with this medication Print Language: Czech
[2023-09-20 22:48] VITALS: BP 118/76; PULSE 75; RESP 18; TEMP 36.8; O2SAT 100
== END 2023-09-20 22:48 | disposition home or self-care (01) ==
PROVIDERS: Emergency Provider Emergency Medicine
DX: F41.1 Generalized anxiety disorder (principal); F43.9 Reaction to severe stress, unspecified
CPT/HCPCS: 99282; 99284

== ENCOUNTER 2023-09-22 20:22 | Emergency (ER) | payer OTHER, SELFPAY ==
--- NOTE | ~2023-09-22 | XR_ITS ---
EXAMINATION: XR THORACIC SPINE CLINICAL INFORMATION: Thoracic back pain COMPARISON: None. TECHNIQUE: AP, lateral, and swimmer's views of the thoracic spine FINDINGS: Vertebral body heights are normal. Alignment is anatomic without spondylolisthesis. Intervertebral disc heights are well-maintained. No degenerative disc disease. Paraspinal soft tissues are unremarkable. No osseous lesions are identified. XR/XR thoracic spine 2V IMPRESSION: Normal radiographs of the thoracic spine.
[2023-09-22 20:32] VITALS: BP 114/72; PULSE 67; RESP 17; TEMP 36.8; O2SAT 99
[2023-09-22 20:35] VITALS: BP 122/71; PULSE 87; O2SAT 96
[2023-09-22 20:38] VITALS: BP 114/75; PULSE 65; RESP 20; O2SAT 98; BMI 22.4
--- NOTE | 2023-09-22 20:41 | ECG_ITS ---
Test Reason : SYNCOPE Blood Pressure : / mmHG Vent. Rate : 072 BPM Atrial Rate : 072 BPM P-R Int : 106 ms QRS Dur : 074 ms QT Int : 362 ms P-R-T Axes : 047 048 052 degrees QTc Int : 396 ms Sinus rhythm with short VA Otherwise normal ECG When compared with ECG of 21-JUN-2023 21:24, No significant change was found Referred By: Generic ED Physician Electronically Signed By:YU JEAN MD
[2023-09-22 21:13] LABS: MANUAL DIFF FLAG NO
[2023-09-22 21:17] LABS: Basophils Percent Auto 0.2 % (0-2); Eosinophils Absolute Auto 0.1 X10*3/uL (0.0-0.4); Eosinophils Percent Auto 1.6 % (0-4); Hematocrit 33.3 % (37.0-47.0); Hemoglobin 11.7 g/dl (12.0-16.0); Imm Gran Abs Auto 0.01 X10*3/uL (0.00-0.03); Imm Gran Pct Auto 0.1 % (0.0-0.4); Lymphocytes Absolute Auto 2.3 X10*3/uL (1.2-4.9); Lymphocytes Percent Auto 27.1 % (20-40); Mean Corpuscular HGB Conc 35.1 g/dl (31.0-35.0); Mean Corpuscular Hemoglobin 30.8 pg (27.0-33.0); Mean Corpuscular Volume 87.6 fL (80.0-98.0); Mean Platelet Volume 10.2 fL (9.4-12.3); Monocytes Absolute Auto 0.7 X10*3/uL (0.1-1.2); Monocytes Percent Auto 8.5 % (2-11); Neutrophils Absolute Auto 5.3 x10*3/uL (2.0-8.3); Neutrophils Percent Auto 62.5 % (45-73); Platelet Count 258 X10*3/uL (160-400); White Blood Count 8.5 X10*3/uL (4.8-10.8)
--- NOTE | 2023-09-22 21:25 | ED_ITS ---
HPI - Syncope General Chief Complaint: Syncope Stated Complaint: syncopal episode Time Seen by Provider: 09/22/23 21:18 Source: patient and EMS Mode of arrival: EMS Limitations: no limitations History of Present Illness ED Provider: DR. Perry HPI narrative: 23-year-old female history of anxiety came in for evaluation of back pain and syncopal episode. 23-year-old female with known past medical history of anxiety came in complaining of mid back pain for 2 days, patient thinking that she has a bump on her back that she feels, patient was in severe pain that caused her to pass out for a few seconds, denies head injury, patient has no other complaints. No SI, no HI. Patient was seen in the emergency department on 09/20/23 for anxiety-related symptoms. Related Data Previous Rx's ?Medication ?Instructions ?Recorded ondansetron 4 mg disintegrating 4 mg PO Q8H 3 days #9 tabs 06/18/23 tablet rbxtsupdzu-bkevscfvyhquw-cgkmgxlg 1 cap PO TID PRN pain #14 caps 06/19/23 50 mg-300 mg-40 mg capsule (Fioricet) ketorolac 10 mg tablet 10 mg PO Q8H PRN pain #10 tabs 06/19/23 Allergies Allergy/AdvReac Type Severity Reaction Status Date / Time No Known Allergies Allergy Verified 09/22/23 20:40 Review of Systems 2 Review of Systems: All other systems are reviewed and are negative Constitutional: Reports as per HPI and Reports no additional constitutional complaints Eyes: Reports as per HPI and Reports no additional eye complaints Reports system reviewed and no additional complaints, except as documented Cardiovascular: Reports as per HPI and Reports no additional cardiovascular complaints Respiratory: Reports as per HPI and Reports no additional respiratory complaints Gastrointestinal: Reports as per HPI and Reports no additional gastrointestinal complaints Genitourinary: Reports no additional female genitourinary complaints Musculoskeletal: Reports no additional musculoskeletal complaints Skin/Breast: Reports system reviewed and no additional complaints, except as docu Psychiatric: Reports no additional psychiatric complaints Endocrine: Reports no additional endocrine complaints Hematologic/Lymphatic: Reports no additional hematologic/lymphatic complaints Allergic/Immunologic: Reports no additional allergic/immunologic complaints Reports system reviewed and no additional complaints, except as documented and Reports Abnormal speech present PMFSH Past Medical History Medical History Migraine Social History Social History Smoked in Last 30 Days: No Use of substances other than those prescribed or required for medical reasons: No Advance Directives: No Advance Directives Information Provided: No Do you have a plan to hurt others: No Plan Physical Exam 2 Vital Signs: Vital Signs: Last Vital Signs Temp 98.2 F 09/22/23 20:32 Pulse 69 09/22/23 22:57 Resp 16 09/22/23 22:57 BP 110/79 09/22/23 22:57 Pulse Ox 98 09/22/23 22:57 O2 Del Method Room Air 09/22/23 22:57 BMI result Body Mass Index 22.4 Vital signs have been reviewed and appear to be correct. Blood pressure elevated. Heart rate normal. Respiratory rate normal. Temperature normal. Oxygen saturation normal. Appearance: Alert. Oriented X3. No acute distress. Head: Normal external exam. Normocephalic. Atraumatic. No [place] signs noted. No raccoon eyes noted Eyes: PERRLA. EOMI. Conjunctiva and sclera normal. Eyelids normal. ENT: TM's Normal. Pharynx normal. Uvula midline. Moist mucous membranes. No trismus noted. No drooling noted. No muffled voice noted. Neck: Normal inspection. Neck supple. FROM. No adenopathy. Thyroid Normal. No meningeal signs. No neck mass noted. CVS: Normal heart rate and rhythm. Heart sound normal. No murmurs noted. Pulses normal throughout. Respiratory: No respiratory distress. Painless inspiration. Breath sounds normal. No wheezes/rales/rhonchi noted. Chest nontender. No accessory muscle usage noted or decreased air movement noted. Abdomen: Soft and nontender. Bowel sounds normal in all 4 quadrants. No distention noted. No organomegaly noted. No visible injury noted. Back: No CVA tenderness. Full range of motion noted. Skin: Skin warm and dry. Normal skin color. Normal skin turgor. No rashes/lesions/lacerations noted. Extremities: No lower extremity edema. Extremities exhibit normal range of motion. Extremities nontender. Neuro: Oriented X 3. Cranial nerve exam: II-XII are grossly intact No motor deficit. No sensory deficit. Reflexes normal. Course Reevaluation(s) Reevaluation #1: 23-year-old female history anxiety patient had a frequent ED visits related to anxiety came in today after she had a syncopal episode due to severe back pain. Physical exam is unremarkable, back x-ray showed no acute pathology. Will reassure and discharge to follow-up with PCP. Time: 23:00 Medical Decision Making Differential Diagnosis Differential Diagnoses: The differential diagnosis associated with the presentation includes (Compression fracture, back contusion, electrolyte derangement, dysrhythmia, severe anemia, anxiety.) Admission/Observation Consideration of admission/observation: Escalation of care including admission/observation considered Lab Data MDM Lab Attestation statement: I reviewed the patient's lab results. 09/22/23 21:08 09/22/23 21:08 Labs: Lab Results 09/22/23 09/22/23 Range/Units 21:08 22:52 WBC 8.5 (4.8-10.8) X10*3/uL RBC 3.80 L (4.20-5.50) X10*6/uL Hgb 11.7 L (12.0-16.0) g/dl Hct 33.3 L (37.0-47.0) % MCV 87.6 (80.0-98.0) fL MCH 30.8 (27.0-33.0) pg MCHC 35.1 H (31.0-35.0) g/dl RDW 12.0 (11.0-16.0) % Plt Count 258 (160-400) X10*3/uL MPV 10.2 (9.4-12.3) fL Immature Gran % (Auto) 0.1 (0.0-0.4) % Neut % (Auto) 62.5 (45-73) % Lymph % (Auto) 27.1 (20-40) % [place] % (Auto) 8.5 (2-11) % Eos % (Auto) 1.6 (0-4) % Baso % (Auto) 0.2 (0-2) % Lymph # (Auto) 2.3 (1.2-4.9) X10*3/uL [place] # (Auto) 0.7 (0.1-1.2) X10*3/uL Eos # (Auto) 0.1 (0.0-0.4) X10*3/uL Baso # (Auto) 0.0 (0.0-0.2) X10*3/uL Abs Immat Gran (auto) 0.01 (0.00-0.03) X10*3/uL Absolute Neuts (auto) 5.3 (2.0-8.3) x10*3/uL Absolute Nucleated RBC 0.000 (0.0-0.012) X10*3/uL Nucleated RBC % (auto) 0.0 (0.0-0.2) /100WBC Sodium 139 (135-145) mmol/L Potassium 3.6 D (3.3-5.1) mmol/L Chloride 107 (96-108) mmol/L Carbon Dioxide 25 (22-29) mmol/L Anion Gap 11 L (12-20) BUN 9 (9-16) mg/dL Creatinine 0.63 (0.5-1.4) mg/dL Estim Creat Clear Calc 95.5 Estimated GFR > 60 Random Glucose 113 (60-115) mg/dL Calcium 8.9 (8.4-10.2) mg/dL Urine Color Yellow Urine Appearance Clear Urine pH 8.5 (5.0-9.0) Ur Specific Trail 1.010 (1.005-1.025) Urine Protein Negative (Neg-Trace) mg/dL Urine Glucose (UA) Negative (Negative) mg/dL Urine Ketones Negative (Negative) mg/dL Urine Blood Small (1+) H (Negative) Urine Nitrite Negative (Negative) Ur Leukocyte Esterase Moderate (2+) H (Negative) Urine RBC 0-2 (0-2) /HPF Urine WBC 0-5 (0-5) /HPF Ur Squamous Epith Cells 0-2 (0-2) /HPF Urine Bacteria None Seen (None Seen) Hyaline Casts 0-2 (0-2) /LPF Urine Test NEGATIVE (NEGATIVE) Urine Opiates Screen Not Detected (Not Detect) Ur Buprenorphine Scrn Not Detected (Not Detect) ng/mL Ur Oxycodone Screen Not Detected (Not Detect) ng/mL Urine Methadone Screen Not Detected (Not Detect) ng/mL Urine Fentanyl Screen Not Detected (Not Detect) Ur Barbiturates Screen POSITIVE H (Not Detect) Ur Phencyclidine Scrn Not Detected (Not Detect) Ur Amphetamines Screen Not Detected (Not Detect) U Benzodiazepines Scrn Not Detected (Not Detect) Urine Cocaine Screen Not Detected (Not Detect) U Marijuana (THC) Screen Not Detected (Not Detect) Independent Interpretation I performed an independent interpretation of an: Plain X-Ray (Thoracic: No acute thoracic spine pathology.) Radiology Impression Discussion of test interpretation with radiology: I have reviewed the radiologist's reading. Discharge Plan Discharge Clinical Impression: Anxiety, Back pain Patient Disposition: Home, Self-Care Instructions: Anxiety (ED) Prescriptions: No Action ondansetron 4 mg tablet,disintegrating 4 mg PO Q8H 3 Days Qty: 9 0RF ytpoodcsbb-insomqfpthszw-hhsy [Fioricet] 50-300-40 mg capsule 1 cap PO TID PRN (Reason: pain) Qty: 14 0RF ketorolac 10 mg tablet 10 mg PO Q8H PRN (Reason: pain) Qty: 10 0RF Rx Instructions: Do not use NSAIDs with this medication Print Language: Somali
[2023-09-22 21:42] LABS: Anion Gap 11 (12-20); Blood Urea Nitrogen 9 mg/dL (9-16); Calcium 8.9 mg/dL (8.4-10.2); Carbon Dioxide 25 mmol/L (22-29); Chloride 107 mmol/L (96-108); Creatinine Clr Calc Pharmacy 95.5; Estimated Glomerular Filt Rate > 60; Glucose Random 113 mg/dL (60-115); Potassium 3.6 mmol/L (3.3-5.1); Sodium 139 mmol/L (135-145)
[2023-09-22 22:56] VITALS: O2SAT 98
[2023-09-22 22:57] VITALS: BP 110/79; PULSE 69; RESP 16; O2SAT 98
[2023-09-22 22:59] LABS: Appearance Urine Clear; Color Urine Yellow; Glucose Urine UA Negative (Negative); Leukocyte Esterase Urine Moderate (2+) (Negative); Nitrite Urine Negative (Negative); PH 8.5 (5.0-9.0); UMIC TRIGGER UACC YES; Urine Blood Small (1+) (Negative); Urine Ketones Negative (Negative); Urine Protein Negative (Neg-Trace)
[2023-09-22 23:01] LABS: UPreg QC Valid YES; Urine Pregnancy NEGATIVE (NEGATIVE)
[2023-09-22 23:14] LABS: Amphetamine Screen Urine Not Detected (Not Detect); Barbiturates, Urine POSITIVE (Not Detect); Benzodiazepines Screen Urine Not Detected (Not Detect); Buprenorphine Scr Not Detected (Not Detect); Cannabinoid Screen Urine Not Detected (Not Detect); Cocaine Screen Urine Not Detected (Not Detect); Fentanyl, urine Not Detected (Not Detect); Methadone Screen, Urine Not Detected (Not Detect); Opiate Screen Urine Not Detected (Not Detect); Oxycodone Screen Urine Not Detected (Not Detect); Phencyclidine Screen Urine Not Detected (Not Detect)
[2023-09-23 00:25] LABS: Bacteria Urine None Seen (None Seen); Hyaline Casts Urine 0-2 /LPF (0-2); RBC Urine 0-2 /HPF (0-2); Squamous Epithelial Cell Urine 0-2 /HPF (0-2); WBC Urine 0-5 /HPF (0-5)
[2023-09-23 02:21] VITALS: BP 105/68; PULSE 60; RESP 15; TEMP 36.4; O2SAT 97
== END 2023-09-23 02:25 | disposition home or self-care (01) ==
PROVIDERS: Emergency Provider Emergency Medicine
DX: F41.9 Anxiety disorder, unspecified (principal); M54.6 Pain in thoracic spine; R55 Syncope and collapse; Z79.899 Other long term (current) drug therapy
CPT/HCPCS: 36415; 72070; 80048; 80307; 81001; 81003; 81025; 85025; 93005; 99284; 99285

== ENCOUNTER → 2023-09-22 20:41 | Outpatient (BNV) | payer OTHER, SELFPAY | PROVIDERS: Emergency Provider Emergency Medicine; Visit Provider Internal Medicine Cardiovascular Disease | DX: R55 Syncope and collapse (principal) | CPT/HCPCS: 93010 ==

== ENCOUNTER 2023-09-27 19:07 | Emergency (ER) | payer OTHER, SELFPAY ==
[2023-09-27 19:09] VITALS: BP 111/82; PULSE 90; RESP 18; TEMP 36.3; O2SAT 100; BMI 20.9
--- NOTE | 2023-09-27 19:10 | ED_ITS ---
HPI - General Adult General Chief complaint: Upper Respiratory Symptoms Stated complaint: covid + Time Seen by Provider: 09/27/23 21:50 Source: patient Mode of arrival: ambulatory Limitations: no limitations History of Present Illness HPI narrative: Patient is a 23-year-old female who presents emergency department for evaluation of URI symptoms, tested positive for COVID-19 yesterday. She is experiencing sneezing, nasal congestion, dry nonproductive cough, intermittent nausea. She presents today requesting medications for symptomatic relief. She states she is currently at [employer], she can not be granted a ?passed to leave? to go to a pharmacy until ; which is in 2 days. Denies fevers or chills Related Data Previous Rx's ?Medication ?Instructions ?Recorded ondansetron 4 mg disintegrating 4 mg PO Q8H 3 days #9 tabs 06/18/23 tablet jorxhwzmbf-fnppqntzraslz-yqokzsyu 1 cap PO TID PRN pain #14 caps 06/19/23 50 mg-300 mg-40 mg capsule (Fioricet) ketorolac 10 mg tablet 10 mg PO Q8H PRN pain #10 tabs 06/19/23 benzonatate 150 mg capsule 150 mg PO TID PRN cough #14 caps 09/27/23 Allergies Allergy/AdvReac Type Severity Reaction Status Date / Time No Known Allergies Allergy Verified 09/27/23 19:14 Review of Systems 2 Review of Systems: Yes all other systems are reviewed and are negative [facility] Past Medical History Attestation statement: The following information was validated with the patient. Source: old records reviewed Medical History Migraine Social History Social History Advance Directives: No Advance Directives Information Provided: No Do you have a plan to hurt others: No Plan Physical Exam ED Vital Signs: Vital Signs - 24 hr 09/27/23 19:09 Temperature 97.3 F Pulse Rate 90 Respiratory Rate 18 Blood Pressure 111/82 Pulse Oximetry 100 Oxygen Delivery Method Room Air BMI result Body Mass Index 20.9 Appearance: Alert.?Oriented to person, place and time. No acute distress.?Normal affect. Eyes: Pupils equal, round and reactive to light.? ENT: Pharynx normal.??Nasal congestion. TM normal bilaterally Neck: Normal inspection.? Neck supple.??No cervical adenopathy CVS: Heart sounds normal. Normal heart rate and rhythm.? Pulses normal.?? Respiratory: No respiratory distress.? Lung sounds clear to auscultation bilaterally?? Abdomen: Soft and non-tender. Normoactive bowel sounds. ? Skin: Skin warm and dry.? Normal skin color.? ?? Extremities: No lower extremity edema.? No calf ttp? Neuro: Moves all extremities spontaneously. Sensation intact bilaterally. Ambulates with normal steady gait. Course Course Course Narrative: This is a rapid medical exam performed by Larry Perez NP: Additional HPI, ROS, PE not included below will be deferred to primary provider. Patient is a 23-year-old female with known covid presenting with congestion, nausea. Plan: basic labs, hcg Medical Decision Making Medical Decision Making [facility] Narrative: Patient is a 23-year-old female, presenting for evaluation of upper respiratory symptoms. COVID-19 testing confirmed positive today At this time history and physical exam not consistent with ACS/PE/pneumonia. Well-appearing, nontoxic, afebrile, no tachycardia or tachypnea/hypoxia. Speaking clear full sentences, ambulatory with steady gait. Discussed conservative treatment including rest, hydration, Tylenol/ibuprofen as needed for fever and body aches, saline nasal spray, humidifier, onai-gmq-rluakav cold medication. Provided with a prescription for benzonatate for cough. 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 Advised to follow-up with primary care provider as needed, discussed reasons to return back to the emergency department. All questions were answered. Patient discharged home in stable condition. Differential Diagnosis Differential Diagnoses: The differential diagnosis associated with the presentation includes ( See narrative above) Admission/Observation Consideration of admission/observation: Escalation of care including admission/observation considered ( see narrative above) Lab Data [facility] Lab Attestation statement: I reviewed the patient's lab results. ( see narrative above) CBC is without leukocytosis anemia or thrombocytopenia. Electrolytes overall unremarkable, no ELLIE. LFTs within normal range. HCG negative. 09/27/23 19:35 09/27/23 19:35 Labs: Lab Results 09/27/23 Range/Units 19:35 WBC 7.7 (4.8-10.8) X10*3/uL RBC 4.16 L (4.20-5.50) X10*6/uL Hgb 12.8 (12.0-16.0) g/dl Hct 36.9 L (37.0-47.0) % MCV 88.7 (80.0-98.0) fL MCH 30.8 (27.0-33.0) pg MCHC 34.7 (31.0-35.0) g/dl RDW 12.4 (11.0-16.0) % Plt Count 267 (160-400) X10*3/uL MPV 10.0 (9.4-12.3) fL Immature Gran % (Auto) 0.3 (0.0-0.4) % Neut % (Auto) 58.3 (45-73) % Lymph % (Auto) 23.1 (20-40) % [place] % (Auto) 14.4 H (2-11) % Eos % (Auto) 3.5 (0-4) % Baso % (Auto) 0.4 (0-2) % Lymph # (Auto) 1.8 (1.2-4.9) X10*3/uL [place] # (Auto) 1.1 (0.1-1.2) X10*3/uL Eos # (Auto) 0.3 (0.0-0.4) X10*3/uL Baso # (Auto) 0.0 (0.0-0.2) X10*3/uL Abs Immat Gran (auto) 0.02 (0.00-0.03) X10*3/uL Absolute Neuts (auto) 4.5 (2.0-8.3) x10*3/uL Absolute Nucleated RBC 0.000 (0.0-0.012) X10*3/uL Nucleated RBC % (auto) 0.0 (0.0-0.2) /100WBC Sodium 138 (135-145) mmol/L Potassium 3.6 (3.3-5.1) mmol/L Chloride 107 (96-108) mmol/L Carbon Dioxide 21 L (22-29) mmol/L Anion Gap 14 (12-20) BUN 8 L (9-16) mg/dL Creatinine 0.67 (0.5-1.4) mg/dL Estim Creat Clear Calc 89.8 Estimated GFR > 60 Random Glucose 95 (60-115) mg/dL Calcium 9.4 (8.4-10.2) mg/dL Total Bilirubin 0.2 (0.0-1.0) mg/dL AST 12 (5-31) U/L ALT 13 (0-31) U/L Alkaline Phosphatase 49 (39-117) U/L Total Protein 7.2 (6.5-8.0) g/dL Albumin 4.2 (3.5-5.0) g/dL Beta HCG, Quant < 2 mIU/mL Prescription Management I considered prescription management with: Pain Medication ( acetaminophen/ibuprofen) and Antibiotic (Viral infection) Discharge Plan Discharge Clinical Impression: COVID-19 Patient Disposition: Home, Self-Care Instructions: COVID-19 (Coronavirus Disease 2019) (ED) Additional Instructions: Be sure to rest, stay well hydrated drinking plenty of fluids, eat small frequent meals. Tylenol/ibuprofen can be used as needed for fever/pain. Jwri-vif-dhlsnjv cold medications may be helpful as well for symptoms. Saline nasal spray, humidifier may be helpful for nasal congestion. You may return to the emergency department with any new or worsening symptoms or concerns. Follow-up with your primary care provider as needed. Should remain out of school/ work until symptoms have resolved and have been without a fever for 24 hours without the use of Tylenol or ibuprofen. Prescriptions: New benzonatate 150 mg capsule 150 mg PO TID PRN (Reason: cough) Qty: 14 0RF No Action ondansetron 4 mg tablet,disintegrating 4 mg PO Q8H 3 Days Qty: 9 0RF oguarvqkzx-zeasgzzzxqgcb-jvik [Fioricet] 50-300-40 mg capsule 1 cap PO TID PRN (Reason: pain) Qty: 14 0RF ketorolac 10 mg tablet 10 mg PO Q8H PRN (Reason: pain) Qty: 10 0RF Rx Instructions: Do not use NSAIDs with this medication Referrals: Physician,Unknown J [Primary Care Provider] - Print Language: Turkish
[2023-09-27 19:40] LABS: MANUAL DIFF FLAG NO
[2023-09-27 19:41] LABS: Basophils Percent Auto 0.4 % (0-2); Eosinophils Absolute Auto 0.3 X10*3/uL (0.0-0.4); Eosinophils Percent Auto 3.5 % (0-4); Hematocrit 36.9 % (37.0-47.0); Hemoglobin 12.8 g/dl (12.0-16.0); Imm Gran Abs Auto 0.02 X10*3/uL (0.00-0.03); Imm Gran Pct Auto 0.3 % (0.0-0.4); Lymphocytes Absolute Auto 1.8 X10*3/uL (1.2-4.9); Lymphocytes Percent Auto 23.1 % (20-40); Mean Corpuscular HGB Conc 34.7 g/dl (31.0-35.0); Mean Corpuscular Hemoglobin 30.8 pg (27.0-33.0); Mean Corpuscular Volume 88.7 fL (80.0-98.0); Monocytes Absolute Auto 1.1 X10*3/uL (0.1-1.2); Monocytes Percent Auto 14.4 % (2-11); Neutrophils Absolute Auto 4.5 x10*3/uL (2.0-8.3); Neutrophils Percent Auto 58.3 % (45-73); Platelet Count 267 X10*3/uL (160-400); Red Blood Count 4.16 X10*6/uL (4.20-5.50); Red Cell Distribution Width 12.4 % (11.0-16.0); White Blood Count 7.7 X10*3/uL (4.8-10.8)
[2023-09-27 20:06] LABS: Alanine Aminotransferase 13 U/L (0-31); Albumin Level 4.2 g/dL (3.5-5.0); Alkaline Phosphatase 49 U/L (39-117); Anion Gap 14 (12-20); Aspartate Amino Transferase 12 U/L (5-31); Bilirubin Total 0.2 mg/dL (0.0-1.0); Blood Urea Nitrogen 8 mg/dL (9-16); Calcium 9.4 mg/dL (8.4-10.2); Carbon Dioxide 21 mmol/L (22-29); Chloride 107 mmol/L (96-108); Creatinine Clr Calc Pharmacy 89.8; Estimated Glomerular Filt Rate > 60; Glucose Random 95 mg/dL (60-115); Potassium 3.6 mmol/L (3.3-5.1); Sodium 138 mmol/L (135-145); Total Protein 7.2 g/dL (6.5-8.0)
[2023-09-27 20:11] LABS: HCG Quantitative < 2 mIU/mL
[2023-09-27 22:50] VITALS: BP 115/72; PULSE 87; RESP 20; TEMP 36.7; O2SAT 98
== END 2023-09-27 22:51 | disposition home or self-care (01) ==
PROVIDERS: Registered Nurse Emergency; Emergency Provider Internal Medicine
DX: U07.1 COVID-19 (principal); R06.7 Sneezing; R05.9 Cough, unspecified; R09.81 Nasal congestion
CPT/HCPCS: 36415; 80053; 84702; 85025; 99282; 99283

== ENCOUNTER 2023-10-09 23:04 | Emergency (ER) | payer OTHER, SELFPAY ==
[2023-10-09 23:10] VITALS: BP 110/70; PULSE 92; O2SAT 100
[2023-10-09 23:13] VITALS: PULSE 87; RESP 16; TEMP 37.1; O2SAT 100; BMI 20.7
--- NOTE | 2023-10-09 23:25 | ED_ITS ---
HPI - Syncope General Chief Complaint: Syncope Stated Complaint: syncope? Time Seen by Provider: 10/09/23 23:09 Source: patient Mode of arrival: ambulatory Limitations: no limitations History of Present Illness ED Provider: rhiannon ELLIS narrative: Patient stays in a [employer] [facility] area without any EAC was very hot fell lightheaded does have history of migraine with headache almost fell dizzy and passing out questionable unresponsiveness ? Anxiety no fall after arrival patient is alert oriented x3 without any deficits complaining of mild headache Related Data Previous Rx's ?Medication ?Instructions ?Recorded ondansetron 4 mg disintegrating 4 mg PO Q8H 3 days #9 tabs 06/18/23 tablet plcaptibvf-murxylwlxdgex-qimemmao 1 cap PO TID PRN pain #14 caps 06/19/23 50 mg-300 mg-40 mg capsule (Fioricet) ketorolac 10 mg tablet 10 mg PO Q8H PRN pain #10 tabs 06/19/23 benzonatate 150 mg capsule 150 mg PO TID PRN cough #14 caps 09/27/23 jarpobgeau-krfmqdkmefxaj-dwvxomjn 1 tab PO Q6H PRN haeadace #20 tabs 10/10/23 50 mg-325 mg-40 mg tablet Allergies Allergy/AdvReac Type Severity Reaction Status Date / Time No Known Allergies Allergy Verified 10/09/23 23:20 Review of Systems Review of Systems: Yes all other systems are reviewed and are negative PMFSH Past Medical History Medical History Migraine Social History Social History Smoked in Last 30 Days: No Use of substances other than those prescribed or required for medical reasons: No Advance Directives: No Advance Directives Information Provided: No Patient : No Physical Exam Vital Signs: Vital Signs: Last Vital Signs Temp 98.2 F 10/10/23 00:09 Pulse 95 10/10/23 00:09 Resp 16 10/10/23 00:09 BP 111/71 10/10/23 00:09 Pulse Ox 98 10/10/23 00:09 O2 Del Method Room Air 10/10/23 00:09 BMI result Body Mass Index 20.7 Appearance: Alert. Oriented X3. No acute distress. Eyes: PERRLA, No Nystagmus ENT: Pharynx normal. Oral Mucosa moist AT NC Neck: Normal inspection. Neck supple. No midline tenderness CVS: Normal heart rate and rhythm. Pulses normal. Respiratory: No respiratory distress. Equal air entry bilateral, no wheezing/rales/rhonchi Abdomen: Soft and nontender. Bowel sounds are present, no mass palpable, no CVA tenderness Skin: Skin warm and dry. Normal skin color. Normal skin turgor. Extremities: No lower extremity edema. No calf tenderness Neuro: Oriented X 3. No motor deficit. No sensory deficit.No cerebellar signs , cranial nerves II-XII intact Medications Administered Discontinued Medications Generic Name Dose Route Start Last Admin Trade Name Freq PRN Reason Stop Dose Admin Acetaminophen/Butalbital/Caffeine 1 tab 10/09/23 23:40 10/10/23 01:00 Butalb/Acetamin/Caff 50/325/40 Tablet PO 10/09/23 23:41 1 tab ONCE ONE Administration Ondansetron HCl 4 mg 10/09/23 23:40 10/10/23 01:00 Ondansetron Odt 4 Mg Tab.Rapdis TRANSLINGU 10/09/23 23:41 4 mg ONCE ONE Administration Medical Decision Making Medical Decision Making [facility] Narrative: Patient's symptoms from heat exhaustion/anxiety/migraine vitals are stable patient felt much better after p.o. fluids in the ER will discharge patient home patient has had COVID-19 positive on 09/25 been here before for anxiety Differential Diagnosis Differential Diagnoses: The differential diagnosis associated with the presentation includes Discharge Plan Discharge Clinical Impression: Heat exhaustion, Headache, migraine Patient Disposition: Home, Self-Care Instructions: Heat Exhaustion (ED), Migraine Headache (ED) Additional Instructions: Drink plenty of fluids Stay in cool shaded area Medicine for migraine headache as prescribed Prescriptions: New vunssuhkst-ifairlqaypoeu-yrok 50-325-40 mg tablet 1 tab PO Q6H PRN (Reason: haeadace) Qty: 20 0RF No Action ondansetron 4 mg tablet,disintegrating 4 mg PO Q8H 3 Days Qty: 9 0RF xvosurncdh-sqpkfugycrgzt-sufs [Fioricet] 50-300-40 mg capsule 1 cap PO TID PRN (Reason: pain) Qty: 14 0RF ketorolac 10 mg tablet 10 mg PO Q8H PRN (Reason: pain) Qty: 10 0RF Rx Instructions: Do not use NSAIDs with this medication benzonatate 150 mg capsule 150 mg PO TID PRN (Reason: cough) Qty: 14 0RF Print Language: Persian
[2023-10-10 00:08] VITALS: PULSE 82
[2023-10-10 00:09] VITALS: BP 111/71; PULSE 95; RESP 16; TEMP 36.8; O2SAT 98
[2023-10-10] MEDS: Ondansetron ODT 4 MG TAB.RAPDIS TRANSLINGU (01:00)
[2023-10-10] MEDS: Butalb/Acetamin/Caff 50/325/40 TABLET 1 TAB PO (01:00)
[2023-10-10 01:38] VITALS: BP 116/72; PULSE 78; RESP 18; TEMP 36.8; O2SAT 99
== END 2023-10-10 01:40 | disposition home or self-care (01) ==
PROVIDERS: Emergency Provider Internal Medicine; PCP Physician Assistant Medical
DX: G43.909 Migraine, unspecified, not intractable, without status migrainosus (principal); R55 Syncope and collapse; F41.9 Anxiety disorder, unspecified; T67.5XXA Heat exhaustion, unspecified, initial encounter; X58.XXXA Exposure to other specified factors, initial encounter; Y93.9 Activity, unspecified; Y92.9 Unspecified place or not applicable; Y99.8 Other external cause status
CPT/HCPCS: 99283; 99285

== ENCOUNTER 2023-10-10 19:22 | Emergency (ER) | payer OTHER, SELFPAY ==
--- NOTE | 2023-10-10 | ECG_ITS ---
Test Reason : CHEST PAIN Blood Pressure : / mmHG Vent. Rate : 073 BPM Atrial Rate : 073 BPM P-R Int : 116 ms QRS Dur : 074 ms QT Int : 358 ms P-R-T Axes : 062 028 061 degrees QTc Int : 394 ms Normal sinus rhythm Normal ECG When compared with ECG of 22-SEP-2023 20:55, No significant change was found Referred By: Generic ED Physician Electronically Signed By:YU JEAN MD
[2023-10-10 19:33] VITALS: BP 97/62; PULSE 76; RESP 16; TEMP 36.2; O2SAT 100; BMI 21.4
--- NOTE | 2023-10-10 19:39 | ED.GENADULT ---
HPI - General Adult General Chief complaint: Upper Respiratory Symptoms Stated complaint: difficulty breathing, migraine Time Seen by Provider: 10/11/23 00:57 History of Present Illness ED Provider: Km ELLIS narrative: The patient is a 23-year-old female who participates in the [employer] program. She has been to the emergency room for issues related to migraines and anxiety. The patient was here yesterday for migraine symptoms and was treated with Fioricet and oral fluids. The patient says that during the day today the patient experienced some left-sided chest pain that lasted for about 20 minutes. She indicates the pain as starting from her left sternal border and radiating to the left side of her chest. She also had a bit of a recurrence of her migraine headache. She was concerned about this chest pain and came to the emergency room. She is not on any hormonal treatment. She has no history of blood clots. She has been a smoker but says she has not smoking much of the moment. No fever, sweats, chills. No cough or sputum. No pain or swelling in her legs. Related Data Previous Rx's ?Medication ?Instructions ?Recorded ondansetron 4 mg disintegrating 4 mg PO Q8H 3 days #9 tabs 06/18/23 tablet lceccgutqx-fofzaphxdtuwl-myyqmrfd 1 cap PO TID PRN pain #14 caps 06/19/23 50 mg-300 mg-40 mg capsule (Fioricet) ketorolac 10 mg tablet 10 mg PO Q8H PRN pain #10 tabs 06/19/23 benzonatate 150 mg capsule 150 mg PO TID PRN cough #14 caps 09/27/23 dlrolbrhri-jagccsmxwkpzy-xrcizmwa 1 tab PO Q6H PRN haeadace #20 tabs 10/10/23 50 mg-325 mg-40 mg tablet Allergies Allergy/AdvReac Type Severity Reaction Status Date / Time No Known Allergies Allergy Verified 10/10/23 19:36 Review of Systems Review of Systems: Yes all other systems are reviewed and are negative PMFSH Past Medical History Medical History Migraine Social History Social History Advance Directives: No Advance Directives Information Provided: No Do you have a plan to hurt others: No Plan Physical Exam ED Vital Signs: Vital Signs - 24 hr 10/10/23 19:33 10/11/23 00:00 Temperature 97.2 F 98.2 F Pulse Rate 76 68 Respiratory Rate 16 16 Blood Pressure 97/62 91/62 Pulse Oximetry 100 100 Oxygen Delivery Method Room Air Room Air BMI result Body Mass Index 21.4 Const Other: Patient is a healthy looking 23-year-old who was awake and alert and does not seem in any distress. HENMT Other: Face is symmetrical. Mucous membranes moist. Eyes Other: Pupils are round equal, conjunctivae are clear Neck Other: Moving her neck easily Chest Other: Possibly some left-sided chest wall tenderness. Resp Effort & Inspection: normal respiratory effort Auscultation: clear to auscultation bilaterally Cardio Rate: regular rate Rhythm: regular rhythm Heart sounds: S1 normal heart sound present and S2 normal heart sound present Skin Other: Skin is dry and unremarkable Neuro Other: The patient is awake and alert with a normal mental status. Her demeanor is entirely nontoxic. Pupils are round equal, extraocular movements are intact, face is symmetrical, speech is clear, she moves her extremities normally and appropriately. She seems entirely neurologically intact and nontoxic. Extrem Other: No calf swelling or tenderness, no peripheral edema, no asymmetry Course Course Course Narrative: RME performed by Anai Goldstein PA-C. Patient is a 23 year old assigned female at presenting to the emergency department with a headache. Patient has been seen at this ED 4 times in the last 1 month, including last night. Detailed physical exam and review of systems are deferred to the planograph operator. Patient placed back in the waiting room pending room availability. Medical Decision Making Medical Decision Making [facility] Narrative: The patient is a 23-year-old female who was on no regular medications. She looks entirely well. Vital signs are unremarkable. Chief complaint seems to have been left-sided chest pain. She had an episode that lasted 20 minutes. The pain has subsequently subsided but has not entirely resolved. The patient is PERC negative. The patient does not describe any infectious symptoms. I do not see any indication for additional testing. I have a very low suspicion for any acutely dangerous process. She will be given an injection of ketorolac for discomfort. I think she may be discharged. Discharge Plan Discharge Clinical Impression: Chest pain Patient Disposition: Home, Self-Care Additional Instructions: Your EKG and your vital signs today are very reassuring. Please plan on following up with your regular medical providers. Return to the emergency room if worse. Prescriptions: No Action ondansetron 4 mg tablet,disintegrating 4 mg PO Q8H 3 Days Qty: 9 0RF lvgyhvhpgl-nvuplnfbbavxj-rstu [Fioricet] 50-300-40 mg capsule 1 cap PO TID PRN (Reason: pain) Qty: 14 0RF ketorolac 10 mg tablet 10 mg PO Q8H PRN (Reason: pain) Qty: 10 0RF Rx Instructions: Do not use NSAIDs with this medication benzonatate 150 mg capsule 150 mg PO TID PRN (Reason: cough) Qty: 14 0RF lngvtiomqr-ngdhqfrqnqjkx-zghl 50-325-40 mg tablet 1 tab PO Q6H PRN (Reason: haeadace) Qty: 20 0RF Print Language: Syriac
[2023-10-11] VITALS: BP 91/62; PULSE 68; RESP 16; TEMP 36.8; O2SAT 100
[2023-10-11] MEDS: Ketorolac Tromethamine 30 MG/ML VIAL 20 MG IM (01:14)
[2023-10-11 01:21] VITALS: BP 91/62; PULSE 68; RESP 16; TEMP 36.8; O2SAT 100
== END 2023-10-11 01:22 | disposition home or self-care (01) ==
PROVIDERS: Emergency Provider Emergency Medicine
DX: R07.89 Other chest pain (principal); R06.02 Shortness of breath; G43.909 Migraine, unspecified, not intractable, without status migrainosus
CPT/HCPCS: 93005; 96372; 99284; J1885

== ENCOUNTER → 2023-10-10 22:45 | Outpatient (BNV) | payer OTHER, SELFPAY | PROVIDERS: Emergency Provider Emergency Medicine; Visit Provider Internal Medicine Cardiovascular Disease | DX: R07.9 Chest pain, unspecified (principal) | CPT/HCPCS: 93010 ==

== ENCOUNTER 2023-10-12 08:33 | Emergency (ER) | payer OTHER, SELFPAY ==
--- NOTE | ~2023-10-12 | CT_ITS ---
EXAMINATION: CT HEAD WITHOUT CONTRAST CLINICAL INFORMATION: Migraine. Headache. COMPARISON: 06/19/2023 TECHNIQUE: Contiguous axial imaging was performed from the skull base to vertex without intravenous administration of contrast. This CT examination was performed using dose optimization techniques as appropriate, variously including the following: *Automated exposure control *Adjustment of mA and/or kV according to patient size (this includes techniques or standardized protocols for targeted exams where dose is matched to indication/reason for exam; i.e. extremities or head) *Use of iterative reconstruction technique DLP: 594 mGy-cm FINDINGS: There is no evidence of acute intracranial hemorrhage or territorial infarction. No mass effect or midline shift is seen. Roman to white matter differentiation is preserved. No extra-axial fluid collections are identified. No hydrocephalus. The osseous structures and soft tissues are intact. The mastoid air cells and visualized portions of the paranasal sinuses are well aerated. CT/CT head/brain wo IV con IMPRESSION: No acute intracranial pathology.
[2023-10-12 08:42] VITALS: BP 119/78; BP 122/70; PULSE 84; PULSE 88; RESP 14; TEMP 37.1; O2SAT 100; BMI 22.7
--- NOTE | 2023-10-12 09:09 | ECG_ITS ---
Test Reason : syncope Blood Pressure : / mmHG Vent. Rate : 069 BPM Atrial Rate : 069 BPM P-R Int : 118 ms QRS Dur : 076 ms QT Int : 360 ms P-R-T Axes : 062 050 047 degrees QTc Int : 385 ms Normal sinus rhythm Cannot rule out Anterior infarct , age undetermined Abnormal ECG When compared with ECG of 10-OCT-2023 22:45, No significant change was found Referred By: Pam Arceo Electronically Signed By:YU JEAN MD
[2023-10-12 09:40] LABS: MANUAL DIFF FLAG NO
[2023-10-12 09:47] LABS: Basophils Percent Auto 0.5 % (0-2); Eosinophils Absolute Auto 0.1 X10*3/uL (0.0-0.4); Eosinophils Percent Auto 1.7 % (0-4); Hematocrit 35.4 % (37.0-47.0); Hemoglobin 12.3 g/dl (12.0-16.0); Imm Gran Abs Auto 0.01 X10*3/uL (0.00-0.03); Imm Gran Pct Auto 0.2 % (0.0-0.4); Lymphocytes Absolute Auto 1.3 X10*3/uL (1.2-4.9); Lymphocytes Percent Auto 19.4 % (20-40); Mean Corpuscular HGB Conc 34.7 g/dl (31.0-35.0); Mean Corpuscular Hemoglobin 30.8 pg (27.0-33.0); Mean Corpuscular Volume 88.7 fL (80.0-98.0); Monocytes Absolute Auto 0.5 X10*3/uL (0.1-1.2); Monocytes Percent Auto 7.9 % (2-11); Neutrophils Absolute Auto 4.7 x10*3/uL (2.0-8.3); Neutrophils Percent Auto 70.3 % (45-73); Platelet Count 271 X10*3/uL (160-400); Red Blood Count 3.99 X10*6/uL (4.20-5.50); Red Cell Distribution Width 12.6 % (11.0-16.0); White Blood Count 6.6 X10*3/uL (4.8-10.8)
[2023-10-12 09:58] LABS: Prothrombin Time 11.9 SEC (11.1-13.3)
[2023-10-12 10:07] VITALS: BP 106/69; PULSE 67; RESP 14; TEMP 36.6; O2SAT 100
[2023-10-12 10:07] LABS: Appearance Urine Clear; Color Urine Yellow; Glucose Urine UA Negative (Negative); Leukocyte Esterase Urine Negative (Negative); Nitrite Urine Negative (Negative); PH 7.5 (5.0-9.0); Specific Gravity - Urine <= 1.005 (1.005-1.025); Urine Blood Negative (Negative); Urine Ketones Negative (Negative); Urine Protein Negative (Neg-Trace)
[2023-10-12 10:07] LABS: Alanine Aminotransferase 9 U/L (0-31); Albumin Level 3.9 g/dL (3.5-5.0); Alkaline Phosphatase 43 U/L (39-117); Anion Gap 12 (12-20); Aspartate Amino Transferase 18 U/L (5-31); Bilirubin Total 0.3 mg/dL (0.0-1.0); Blood Urea Nitrogen 8 mg/dL (9-16); Calcium 9.2 mg/dL (8.4-10.2); Carbon Dioxide 21 mmol/L (22-29); Chloride 111 mmol/L (96-108); Creatinine Clr Calc Pharmacy 89.8; Estimated Glomerular Filt Rate > 60; Glucose Random 78 mg/dL (60-115); Magnesium 2.1 mg/dL (1.6-2.6); Potassium 4.6 mmol/L (3.3-5.1); Sodium 139 mmol/L (135-145); Total Protein 6.9 g/dL (6.5-8.0)
[2023-10-12 10:09] LABS: UPreg QC Valid YES; Urine Pregnancy NEGATIVE (NEGATIVE)
[2023-10-12 10:17] LABS: Amphetamine Screen Urine Not Detected (Not Detect); Barbiturates, Urine POSITIVE (Not Detect); Benzodiazepines Screen Urine Not Detected (Not Detect); Buprenorphine Scr Not Detected (Not Detect); Cannabinoid Screen Urine Not Detected (Not Detect); Cocaine Screen Urine Not Detected (Not Detect); Fentanyl, urine Not Detected (Not Detect); Methadone Screen, Urine Not Detected (Not Detect); Opiate Screen Urine Not Detected (Not Detect); Oxycodone Screen Urine Not Detected (Not Detect); Phencyclidine Screen Urine Not Detected (Not Detect)
[2023-10-12 10:23] LABS: Troponin-I High Sensitivity < 2.7 ng/L (<3.5-17.0)
[2023-10-12] MEDS: Ketorolac Tromethamine 15 MG/ML VIAL IVPUSH (10:36)
[2023-10-12] MEDS: 0.9 % Sodium Chloride 1,000 ML 999 ML IV (10:36)
[2023-10-12] MEDS: Metoclopramide HCl 10 MG/2 ML VIAL IVPUSH (10:36)
[2023-10-12] MEDS: diphenhydrAMINE HCL 50 MG/ML VIAL 25 MG IVPUSH (10:36)
--- NOTE | 2023-10-12 11:30 | ED.HA ---
HPI - Headache General Chief Complaint: Headache Stated Complaint: Syncopal episode H/A nausea Time Seen by Provider: 10/12/23 09:06 Source: patient, RN notes reviewed and old records reviewed Mode of arrival: ambulatory Limitations: no limitations History of Present Illness ED Provider: AMBERLY HOLBROOK PA-C HPI Narrative: 23-year-old female with past medical history significant for migraines and anxiety presents to the ED today following possible syncopal episode prior to arrival. Patient states that she was standing outside under tree at school near the cafeteria when she began to feel a flush. She reports falling to the ground and believes she lost consciousness however cannot discern for how long. She denies head strike. The syncopal episode was witnessed by 5-6 other students. She believes this may have been due to heat exhaustion as this has happened in the past. Additionally reports chronic migraines for which she follows with PCP and neurologist. Her medication regimen has recently been adjusted and she is currently taking Fioricet and increasing her oral hydration. Reports taking fioricet this morning. At present, rates migraine 09/04. Admits that she's had multiple episodes of syncope in the past. Denies fever, chills, blurred vision, dizziness, photophobia, neck pain, scalp tenderness, jaw claudication, nausea or vomiting, bowel or bladder incontinence or retention. Denies injury or trauma to the head. Related Data Previous Rx's ?Medication ?Instructions ?Recorded ondansetron 4 mg disintegrating 4 mg PO Q8H 3 days #9 tabs 06/18/23 tablet vvtjdrnxgh-czuzqelmlucxo-nmhibyms 1 cap PO TID PRN pain #14 caps 06/19/23 50 mg-300 mg-40 mg capsule (Fioricet) ketorolac 10 mg tablet 10 mg PO Q8H PRN pain #10 tabs 06/19/23 benzonatate 150 mg capsule 150 mg PO TID PRN cough #14 caps 09/27/23 xpzmuhnijw-pcgrbiegrrhpz-pgfsivul 1 tab PO Q6H PRN haeadace #20 tabs 10/10/23 50 mg-325 mg-40 mg tablet Allergies Allergy/AdvReac Type Severity Reaction Status Date / Time No Known Allergies Allergy Verified 10/12/23 08:43 Review of Systems Review of Systems: Constitutional: No fever, chills, fatigue, night sweats, weight changes ENT/Mouth: No ear pain, hearing loss, nasal congestion, sinus pain, rhinorrhea, sore throat Eyes: No eye pain, swelling, redness, vision changes, discharge, photophobia Cardio: No chest pain, palpitations, SENIOR, orthopnea, peripheral edema Pulm: No SOB, cough, sputum, wheezing, dyspnea, hemoptysis GI: No nausea, vomiting, hematemesis, abdominal pain, diarrhea, constipation, hematochezia, melena : No irregular bleeding, dysuria, frequency, urgency, hesitancy, hematuria, flank pain, urinary flow changes, urinary incontinence or retention MSK: No back pain, neck pain, joint pain, myalgias Skin: No lesions, rashes Neuro: No weakness, numbness, paresthesias, LOC, dizziness, +headache Psych: No anxiety/panic, depression, SI/HI, AH/VH All other systems reviewed and are negative. [facility] Past Medical History Attestation statement: The following information was validated with the patient. Source: old records reviewed and nursing notes reviewed Medical History Migraine Social History Social History Advance Directives: No Advance Directives Information Provided: No Do you have a plan to hurt others: No Plan Physical Exam Vital Signs: Vital Signs: Last Vital Signs Temp 98.0 F 10/12/23 12:03 Pulse 75 10/12/23 12:03 Resp 14 10/12/23 12:03 BP 112/75 10/12/23 12:03 Pulse Ox 100 10/12/23 12:03 O2 Del Method Room Air 10/12/23 12:03 BMI result Body Mass Index 22.7 Vital signs stable Const: General: cooperative, healthy appearing, comfortable and no acute distress Orientation/consciousness: patient oriented x3 Limitations: no limitations HEENT: Head: Yes normal to inspection, Yes No palpable skull fracture present, Yes normocephalic, Yes atraumatic, No scalp tenderness and No Temporal artery tenderness present Ears: hearing grossly normal bilaterally, external ears normal, TM's normal bilaterally, EAC's normal, mastoids normal and no periauricular adenopathy Face and sinus: Yes normal facial exam and Yes sinuses nontender Mouth: Normal oral and palatal mucosa present and moist mucous membranes Eyes: General: appearance normal, both eyes and all related structures Conjunctivae: conjunctivae normal Sclerae: sclerae normal Pupils: Equal, round and reactive pupils present Direct Ophthalmoscopy: normal light reflex, no photophobia, no papilledema and fundi normal bilaterally Neck: Neck: Yes normal visual inspection, Yes full ROM, Yes no lymphadenopathy and Yes no meningeal signs Resp: Effort & Inspection: normal respiratory effort and able to speak in complete sentences Auscultation: clear to auscultation bilaterally Cardio: Rate: regular rate Rhythm: regular rhythm Back/Spine/Pelvis: Other: No midline spinous tenderness or step off deformity. No paraspinal muscle tenderness. Skin: General skin exam: no rashes or lesions noted Neuro: General: patient oriented x3, gait normal, tone normal, no meningeal signs and no focal motor deficits Cranial nerves: Yes Equal, round and reactive pupils present Gait exam (Neuro): Normal gait present Motor exam (neuro): 5/5 motor strength present throughout and Pronator motor function not present Coordination: ltobqx-vp-mlsy test normal, loos-na-ucaw test normal, Romberg test negative and Normal rapid alternating movements of the distal upper extremity present (Neuro) Romberg Test: Negative Pupils: Normal pupillary reactivity/response: bilateral Course Course Course Narrative: 1220-- CBC without leukocytosis or left shift. No anemia. H&H stable. Chemistry without acute electrolyte abnormality requiring intervention. BUN 8, creatinine 0.67. Patient receiving IV fluids. Normal liver function. Troponin undetectable, ACS unlikely. EKG showing normal sinus rhythm with a rate of 69 beats per minute, QT 360, QTC 385, no acute ischemic changes or ST elevations. Urine negative for infection and . Urine toxicology positive for barbiturates. Patient currently taking Fioricet which correlates to findings. > patient receiving IV fluids, Toradol, Reglan and Benadryl > CT head/brain pending to r/o intracranial pathology 1256-- CT head/ brain without acute intracranial pathology. On re-evaluation, patient reports improvement in migraine with Toradol, Reglan and Benadryl. As workup is unremarkable, patient likely had syncopal episodes secondary to heat exhaustion. Advised to continue follow up with PCP and Neurology as planned. Patient has remained stable throughout ED visit today. Discussed worrisome signs and symptoms and when to return to the ED. All questions answered at this time. Patient is agreeable with disposition and stable for discharge. Medications Administered Discontinued Medications Generic Name Dose Route Start Last Admin Trade Name Marcellus PRN Reason Stop Dose Admin Diphenhydramine HCl 25 mg 10/12/23 10:10 10/12/23 10:36 Diphenhydramine Hcl 50 Mg/Ml Vial IVPUSH 10/12/23 10:11 25 mg ONCE ONE Administration Sodium Chloride 1,000 mls @ 999 mls/hr 10/12/23 10:15 10/12/23 10:36 Ns IV 10/12/23 11:15 999 mls/hr .Q1H1M DHARMESH Administration Ketorolac Tromethamine 15 mg 10/12/23 10:10 10/12/23 10:36 Ketorolac Tromethamine 15 Mg/Ml Vial IVPUSH 10/12/23 10:11 15 mg ONCE ONE Administration Metoclopramide HCl 10 mg 10/12/23 10:10 10/12/23 10:36 Metoclopramide Hcl 10 Mg/2 Ml Vial IVPUSH 10/12/23 10:11 10 mg ONCE ONE Administration Medical Decision Making Medical Decision Making [facility] Narrative: 23-year-old female with past medical history significant for migraines and anxiety presents to the ED today following possible syncopal episode prior to arrival. Vital signs stable, afebrile. She is nontoxic appearing in no acute distress. Exam is nonfocal. Cerebellum intact. Ambulating with steady gait. PERRLA. EOMs intact without entrapment or pain. No tongue laceration. RRR. Lungs are CTA bilaterally. No calf tenderness. Differential diagnosis includes headache, migraine, tension headache, anemia, electrolyte disturbance. Unlikely ACS, arrhythmia, ICH, CVA/TIA/dissection, giant cell arteritis, trigeminal neuralgia, meningitis, encephalitis, TBI, seizure. Plan for pain control, labs, imaging and re-evaluation. Differential Diagnosis Differential Diagnoses: The differential diagnosis associated with the presentation includes As above Admission/Observation Not indicated Lab Data [facility] Lab Attestation statement: I reviewed the patient's lab results. As above 10/12/23 09:37 10/12/23 09:37 Labs: Lab Results 10/12/23 10/12/23 10/12/23 Range/Units 09:37 09:44 09:59 WBC 6.6 (4.8-10.8) X10*3/uL RBC 3.99 L (4.20-5.50) X10*6/uL Hgb 12.3 (12.0-16.0) g/dl Hct 35.4 L (37.0-47.0) % MCV 88.7 (80.0-98.0) fL MCH 30.8 (27.0-33.0) pg MCHC 34.7 (31.0-35.0) g/dl RDW 12.6 (11.0-16.0) % Plt Count 271 (160-400) X10*3/uL MPV 11.0 (9.4-12.3) fL Immature Gran % (Auto) 0.2 (0.0-0.4) % Neut % (Auto) 70.3 (45-73) % Lymph % (Auto) 19.4 L (20-40) % [place] % (Auto) 7.9 (2-11) % Eos % (Auto) 1.7 (0-4) % Baso % (Auto) 0.5 (0-2) % Lymph # (Auto) 1.3 (1.2-4.9) X10*3/uL [place] # (Auto) 0.5 (0.1-1.2) X10*3/uL Eos # (Auto) 0.1 (0.0-0.4) X10*3/uL Baso # (Auto) 0.0 (0.0-0.2) X10*3/uL Abs Immat Gran (auto) 0.01 (0.00-0.03) X10*3/uL Absolute Neuts (auto) 4.7 (2.0-8.3) x10*3/uL Absolute Nucleated RBC 0.000 (0.0-0.012) X10*3/uL Nucleated RBC % (auto) 0.0 (0.0-0.2) /100WBC Hold Purple Top SEE NOTE PT 11.9 (11.1-13.3) SEC INR 1.0 (0.9-1.1) Sodium 139 (135-145) mmol/L Potassium 4.6 D (3.3-5.1) mmol/L Chloride 111 H (96-108) mmol/L Carbon Dioxide 21 L (22-29) mmol/L Anion Gap 12 (12-20) BUN 8 L (9-16) mg/dL Creatinine 0.67 (0.5-1.4) mg/dL Estim Creat Clear Calc 89.8 Estimated GFR > 60 Random Glucose 78 (60-115) mg/dL Calcium 9.2 (8.4-10.2) mg/dL Magnesium 2.1 (1.6-2.6) mg/dL Total Bilirubin 0.3 (0.0-1.0) mg/dL AST 18 (5-31) U/L ALT 9 (0-31) U/L Alkaline Phosphatase 43 (39-117) U/L Troponin I High Sens < 2.7 (<3.5-17.0) ng/L Total Protein 6.9 (6.5-8.0) g/dL Albumin 3.9 (3.5-5.0) g/dL Urine Color Yellow Urine Appearance Clear Urine pH 7.5 (5.0-9.0) Ur Specific Shirley <= 1.005 (1.005-1.025) Urine Protein Negative (Neg-Trace) mg/dL Urine Glucose (UA) Negative (Negative) mg/dL Urine Ketones Negative (Negative) mg/dL Urine Blood Negative (Negative) Urine Nitrite Negative (Negative) Ur Leukocyte Esterase Negative (Negative) Urine Test NEGATIVE (NEGATIVE) Urine Opiates Screen Not Detected (Not Detect) Ur Buprenorphine Scrn Not Detected (Not Detect) ng/mL Ur Oxycodone Screen Not Detected (Not Detect) ng/mL Urine Methadone Screen Not Detected (Not Detect) ng/mL Urine Fentanyl Screen Not Detected (Not Detect) Ur Barbiturates Screen POSITIVE H (Not Detect) Ur Phencyclidine Scrn Not Detected (Not Detect) Ur Amphetamines Screen Not Detected (Not Detect) U Benzodiazepines Scrn Not Detected (Not Detect) Urine Cocaine Screen Not Detected (Not Detect) U Marijuana (THC) Screen Not Detected (Not Detect) Independent Interpretation I performed an independent interpretation of an: EKG and CT Scan Interpretation: EKG showing normal sinus rhythm with a rate of 69 beats per minute, QT 360, QTC 385, no acute ischemic changes or ST elevations. CT head/brain without bleed or mass, agree with radiologist's interpretation. Radiology Impression Discussion of test interpretation with radiology: I have reviewed the radiologist's reading. Radiologist Impression: EXAMINATION: CT HEAD WITHOUT CONTRAST CLINICAL INFORMATION: Migraine. Headache. COMPARISON: 06/19/2023 TECHNIQUE: Contiguous axial imaging was performed from the skull base to vertex without intravenous administration of contrast. This CT examination was performed using dose optimization techniques as appropriate, variously including the following: *Automated exposure control *Adjustment of mA and/or kV according to patient size (this includes techniques or standardized protocols for targeted exams where dose is matched to indication/reason for exam; i.e. extremities or head) *Use of iterative reconstruction technique DLP: 594 mGy-cm FINDINGS: There is no evidence of acute intracranial hemorrhage or territorial infarction. No mass effect or midline shift is seen. Roman to white matter differentiation is preserved. No extra-axial fluid collections are identified. No hydrocephalus. The osseous structures and soft tissues are intact. The mastoid air cells and visualized portions of the paranasal sinuses are well aerated. CT/CT head/brain wo IV con IMPRESSION: No acute intracranial pathology. External Record Review External record reviewed: Inpatient record, Office record, Outpatient record, Prior outpatient labs, Prior outpatient radiology, Primary care record and Outside ED record Chronic Conditions Patient?s care impacted by: Other (Migraines) Social Determinants Patient?s care significantly limited by Social Determinants of Health including: Other Social Determinant of Health Critical Care Time Critical Care Time Critical Care Time: No Discharge Plan Discharge Clinical Impression: Migraine Patient Disposition: Home, Self-Care Instructions: Migraine Headache (ED) Additional Instructions: Your blood work today is reassuring. Your cardiac enzymes are normal. Your urine is negative for infection and . The CT of your head and brain is normal. You received a migraine cocktail along with IV fluids in the ED today. Please continue following up with your primary care provider and neurologist regarding your migraines as your medications may need to be adjusted. Ensure you are drinking enough water throughout the day. Return with any new or worsening symptoms. In the case of an emergency call 911. Prescriptions: No Action ondansetron 4 mg tablet,disintegrating 4 mg PO Q8H 3 Days Qty: 9 0RF hokhrclayo-qedzgghlvmeuj-mvhm [Fioricet] 50-300-40 mg capsule 1 cap PO TID PRN (Reason: pain) Qty: 14 0RF ketorolac 10 mg tablet 10 mg PO Q8H PRN (Reason: pain) Qty: 10 0RF Rx Instructions: Do not use NSAIDs with this medication benzonatate 150 mg capsule 150 mg PO TID PRN (Reason: cough) Qty: 14 0RF lgxzddzdmi-uenarwersfebg-jmjl 50-325-40 mg tablet 1 tab PO Q6H PRN (Reason: haeadace) Qty: 20 0RF Referrals: Tamara Gao PA-C [Primary Care Provider] - Print Language: Danish
--- NOTE | 2023-10-12 11:49 | PC.NURSE ---
patient returned from ct scan, awaiting results at this time. reporting headache of a 9, however stating that she thinks it will go away this afternoon. continues to rest quietly in room
[2023-10-12 12:03] VITALS: BP 112/75; PULSE 75; RESP 14; TEMP 36.7; O2SAT 100
[2023-10-12 14:17] VITALS: BP 112/75; PULSE 75; RESP 14; TEMP 36.7; O2SAT 100
[2023-10-12 14:20] LABS: HCG Quantitative < 2 mIU/mL
== END 2023-10-12 14:18 | disposition home or self-care (01) ==
PROVIDERS: Physician Assistant Medical; Emergency Provider Emergency Medicine; PCP Physician Assistant Medical
DX: G43.909 Migraine, unspecified, not intractable, without status migrainosus (principal); R55 Syncope and collapse
CPT/HCPCS: 36415; 70450; 80053; 80307; 81003; 81025; 83735; 84484; 84702; 85025; 85610; 93005; 96361; 96374; 96375; 99284; 99285; J1200; J1885; J2765

== ENCOUNTER → 2023-10-12 09:09 | Outpatient (BNV) | payer OTHER, SELFPAY | PROVIDERS: Emergency Provider Emergency Medicine; PCP Physician Assistant Medical; Visit Provider Internal Medicine Cardiovascular Disease | DX: R94.31 Abnormal electrocardiogram [ECG] [EKG] (principal) | CPT/HCPCS: 93010 ==

== ENCOUNTER 2023-10-15 00:22 | Emergency (ER) | payer OTHER, SELFPAY ==
[2023-10-15 00:37] VITALS: BP 121/85; PULSE 64
[2023-10-15 00:38] VITALS: BP 119/71; PULSE 70; RESP 17; TEMP 36.7; O2SAT 100; BMI 19.2
--- NOTE | 2023-10-15 01:11 | ED_ITS ---
HPI - Seizure General Chief Complaint: Seizure Stated Complaint: SEIZURE Time Seen by Provider: 10/15/23 01:11 Source: EMS Mode of arrival: EMS Limitations: no limitations History of Present Illness ED Provider: rhiannon ELLIS Narrative: Patient came here for syncope episode questionable pseudo-seizure history of same at least for last 5 times been here 6 times since 09/19 for anxiety attack no injury no fall no tongue bite Related Data Previous Rx's ?Medication ?Instructions ?Recorded ondansetron 4 mg disintegrating 4 mg PO Q8H 3 days #9 tabs 06/18/23 tablet ivxdlcswvy-tcblzcrsusrvr-nibqjghh 1 cap PO TID PRN pain #14 caps 06/19/23 50 mg-300 mg-40 mg capsule (Fioricet) ketorolac 10 mg tablet 10 mg PO Q8H PRN pain #10 tabs 06/19/23 benzonatate 150 mg capsule 150 mg PO TID PRN cough #14 caps 09/27/23 pnwxcqhnxk-beipdrlulykbo-rezncjbd 1 tab PO Q6H PRN haeadace #20 tabs 10/10/23 50 mg-325 mg-40 mg tablet Allergies Allergy/AdvReac Type Severity Reaction Status Date / Time No Known Allergies Allergy Verified 10/15/23 00:40 Review of Systems Review of Systems: Yes all other systems are reviewed and are negative PMFSH Past Medical History Medical History (Updated 10/16/23 @ 00:00 by Sohail Laughlin) Anxiety Migraine Social History Social History Advance Directives: No Advance Directives Information Provided: No Do you have a plan to hurt others: No Plan Physical Exam Vital Signs: Vital Signs: Last Vital Signs Temp 98.0 F 10/15/23 04:44 Pulse 70 10/15/23 04:44 Resp 16 10/15/23 04:44 BP 106/67 10/15/23 04:44 Pulse Ox 96 10/15/23 04:44 O2 Del Method Room Air 10/15/23 04:44 BMI result Body Mass Index 19.2 Appearance: Keeping her eyes closed not communicating Eyes: Normal pupils size normal reaction to light ENT: Pharynx normal. Oral Mucosa moist no tongue bite Neck: Normal inspection. Neck supple. CVS: Normal heart rate and rhythm. Pulses normal. Respiratory: No respiratory distress. Equal air entry bilateral, Abdomen: Soft and nontender. Bowel sounds are present, Skin: Skin warm and dry. Normal skin color. Normal skin turgor. Extremities: No lower extremity edema. No calf tenderness Neuro: Not communicating responded to cold water Medical Decision Making Medical Decision Making MDM Narrative: Patient is playing possum after anxiety attack , trying to shake her body similar to that in the past, she been here for last 6 times patient responded to ice water woke up Discharge Plan Discharge Clinical Impression: Psychogenic nonepileptic seizure Patient Disposition: Home, Self-Care Instructions: Migraine Headache (ED), Conversion Disorder (ED) Additional Instructions: Take medication for headaches and follow with your therapist and PCP Prescriptions: No Action ondansetron 4 mg tablet,disintegrating 4 mg PO Q8H 3 Days Qty: 9 0RF sdnqwsntia-handmlpnixpcv-ceyv [Fioricet] 50-300-40 mg capsule 1 cap PO TID PRN (Reason: pain) Qty: 14 0RF ketorolac 10 mg tablet 10 mg PO Q8H PRN (Reason: pain) Qty: 10 0RF Rx Instructions: Do not use NSAIDs with this medication benzonatate 150 mg capsule 150 mg PO TID PRN (Reason: cough) Qty: 14 0RF nyjtiaxsmc-ftoatwmcfksug-nspf 50-325-40 mg tablet 1 tab PO Q6H PRN (Reason: haeadace) Qty: 20 0RF Interventions: ED Discharge Assessment Last Done: 10/15/23 04:44 Discharge Date/Time: 10/15/23 04:44 Print Language: Senegalese
[2023-10-15 01:19] VITALS: BP 128/68; PULSE 87; RESP 20; TEMP 36.8; O2SAT 100
--- NOTE | 2023-10-15 03:31 | PC.NURSE ---
This RN attempted to call [employer] [facility] but unable to reach anyone.
[2023-10-15 04:34] VITALS: BP 106/67; PULSE 70; RESP 16; TEMP 36.7; O2SAT 96
[2023-10-15 04:44] VITALS: BP 106/67; PULSE 70; RESP 16; TEMP 36.7; O2SAT 96
== END 2023-10-15 04:44 | disposition home or self-care (01) ==
PROVIDERS: Emergency Provider Internal Medicine
DX: F44.5 Conversion disorder with seizures or convulsions (principal); F41.9 Anxiety disorder, unspecified; Z79.899 Other long term (current) drug therapy
CPT/HCPCS: 99282; 99284

== ENCOUNTER 2024-07-02 13:16 | Outpatient (REF) | payer OTHER, SELFPAY ==
[2024-07-02 14:44] LABS: Erythrocyte Sedimentation Rate 7 MM/HR (0-20)
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
--- OUTSIDE RECORDS SUMMARY | 2024-07-02 15:50 | XMS_ITS | Encounter Summary ---
Author Organization [facility] Address [address] [place] [address] Care Team Providers Care Dialysis Registered Nurse Name Role Phone Latesha France MD Primary Care Provider Reason for Visit * Reason Onset Date Comments Med Refill 01/25/2024 Disregard put in to system in older [facility] for refill Encounter Details Date Type Department Care Team (Late st Contact Info) Description 01/25/2024 Telephone Adult [facility] [address] [place], [place] [phone] Latesha France MD [address] [place] [address] Med Refill (Disregard put into system in older [facility] for refill) Social History Tobacco Use Types Packs/Day Years Used Date Smoking Tobacco: Never Smokeless Tobacco: Never Alcohol Use Standard Drinks/Week Comments Never 0 (1 standard drink = 0.6 oz pur e alcohol) Comments Unknown Sex and Gender Information Value Date Recorded Sex Assigned at Female 05/22/2024 3:58 PM EST Legal Sex Female 5:43 AM EST Gender Identity Female 05/22/2024 3:58 PM EST Sexual Orientation Choose not to disclose 2024 3:58 PM EST documented as of this encounter Plan of Treatment Upcoming Encounters Date Type Department Care Team (Late st Contact Info) Description 07/11/2024 2:40 PM EDT Office Visit [facility] - [facility] [address] [place] [address] Yamilex Eagle NP [address] [facility] [place] [address] 07/13/2024 1:45 PM EDT Office Visit Obstetrics and Gynecology - [address] [phone] Sayda Sarmiento MD [address] [place] [address] 07/26/2024 9:30 AM EDT Office Visit Orthopedic Surgery - [place] [address] [phone] Jad Ortega, DPM [address] [address] 03/22/2025 3:00 PM EST Office Visit [facility] [place] [facility] [place] [address] [place] [address] Latesha France MD [address] [place], [place] documented as of this encounter Visit Diagnoses Not on filedocumented in this encounter Additional Health Concerns Infection Onset Date Last Indicated Resolved Time Respiratory Rule-Out 05/22/2024 05/22/2024 025 7:00 PM EST C. Diff Rule-Out Infection 05/23/2024 05/22/2024 0 05/23/2024 4:54 PM EST documented as of this encounter Care Teams Dialysis Registered Nurse Relationship Specialty Start Date End Date Latesha France MD [address] [place] [address] PCP - General Internal Medicine 02/13/24 documented as of this encounter
--- OUTSIDE RECORDS SUMMARY | 2024-07-02 15:50 | XMS_ITS | Clinical Summary ---
Author Organization [facility] [address] [facility] lding Address [address] [place] [address] Phone Care Team Providers Care Facility Supervisor Name Role Phone Latesha France MD Primary Care Provider Allergies No known active allergies Medications butalbital-aceta minophen-caffein e (FIORICET, ESGIC) 50-325-40 mg per tablet Take 1 tablet by mouth every 6 (six) hours if needed for headaches. 024 Active predniSONE (DELTASONE) 20 mg tablet Take 3 Tablets by mouth daily for 3 days, THEN 2 Tablets daily for 3 days, THEN 1 Tablet daily for 3 days. Active ondansetron (ZOFRAN) 4 mg tablet Take 1 tablet (4 mg total) by mouth every 8 (eight) hours if needed for nausea. 024 Active adapalene (DIFFERIN) 0.1 % gel Apply 1 g topically at bedtime as needed (acne). 024 2024 Active clindamycin phosphate 1 % gel, once daily APPLY TO AFFECTED AREA TWICE A DAY 023 Active ibuprofen (ADVIL,MOTRIN) 600 mg tablet Take 1 tablet (600 mg total) by mouth. Active dicyclomine (BENTYL) 10 mg capsuleIndicatio ns:Abdominal cramping Take 1 capsule (10 mg total) by mouth 4 (four) times a day if needed (abdominal pain or cramps). 30 capsule 025 Active fluticasone propionate (FLONASE) 50 mcg/actuation nasal spray SPRAY 2 SPRAYS INTO EACH NOSTRIL EVERY DAY SHAKE GENTLY. CLEAN TIP AND REPLACE CAP AFTER USE. 16 mL 3 025 Active triamcinolone (KENALOG) 0.1 % ointment Apply topically 2 (two) times a day. For 2 weeks 30 g 2 025 Active ondansetron ODT (ZOFRAN-ODT) 4 mg disintegrating tablet Take 1 tablet (4 mg total) by mouth. 025 Active diclofenac (VOLTAREN) 50 mg EC tablet Take 1 tablet (50 mg total) by mouth 2 (two) times a day if needed (pain). Do not crush, chew, or split. 28 tablet 1 025 Active benzoyl peroxide (Acne Medication) 2.5 % gel Apply topically 2 (two) times a day. Apply 1 g topically 2 times daily as needed (acne). 30 g 025 Active hyoscyamine (ANASPAZ,LEVSIN) 0.125 mg tablet TAKE 1 TABLET (0.125 MG TOTAL) BY MOUTH EVERY 4 HOURS NEEDED FOR CRAMPING 180 tablet 025 Active meloxicam (Mobic) 7.5 mg tablet Take 1 tablet (7.5 mg total) by mouth 1 (one) time each day. 30 each 025 2024 Active cyclobenzaprine (FLEXERIL) 5 mg tablet Take 1 tablet (5 mg total) by mouth at bedtime as needed for muscle spasms (low back pain). 30 tablet 025 Active SUMAtriptan (IMITREX) 50 mg tablet Take 1 tablet (50 mg total) by mouth 1 (one) time if needed for migraine. May repeat dose once in 2 hours if no relief. Do not exceed 2 doses in 24 hours. 27 tablet 3 025 2025 Active benzoyl peroxide (Acne Medication) 2.5 % gel Apply topically 2 (two) times a day. Apply 1 g topically 2 times daily as needed (acne). 30 g 024 2024 Discontinued(R eorder) hyoscyamine (ANASPAZ,LEVSIN) 0.125 mg tablet Take 1 tablet (0.125 mg total) by mouth every 4 (four) hours if needed for cramping. 180 tablet 025 2024 Discontinued SUMAtriptan (IMITREX) 25 mg tablet Take 1 tablet (25 mg total) by mouth 1 (one) time if needed for migraine. May repeat dose once in 2 hours if no relief. Do not exceed 2 doses in 24 hours. 27 tablet 3 025 2024 Discontinued(R eorder) SUMAtriptan (IMITREX) 25 mg tablet Take 1 tablet (25 mg total) by mouth 1 (one) time if needed for migraine. May repeat dose once in 2 hours if no relief. Do not exceed 2 doses in 24 hours. 27 tablet 3 025 2024 Discontinued methylPREDNISolo ne (MEDROL DOSPAK) 4 mg tablet Take 1 tablet (4 mg total) by mouth See administration instructions for 6 days. Use as directed by package instructions 21 tablet 025 2024 Active Problems Problem Noted Date Diagnosed Date Hypotension 01/04/2024 Menorrhagia with regular cycle 01/04/2024 PTSD (post-traumatic stress disorder) 01/04/2024 Sinus tachycardia 01/04/2024 Syncope 10/18/2023 Psychogenic nonepileptic seizure 10/18/2023 Migraine without status migrainosus, not intract able 10/18/2023 Vasovagal syncope 04/08/2021 Moderate intellectual disabilities 04/08/2021 Encounters Date Type Department Care Team Description 06/26/2024 1:38 PM EDT - 06/26/2024 11:59 PM EDT Hospital Encounter Radiology Department - [address] [phone] Other migraine without status migrainosus, not intractable Discharge Disposition: Home or Self Care 06/21/2024 Telephone Obstetrics and Gynecology - [address] [phone] Sally Kinney CNM Menstrual Problem 06/19/2024 8:27 AM EDT - 06/19/2024 11:59 PM EDT Hospital Encounter XRAY - [place] [address] [place], [place] [phone] Acute right-sided low back pain without sciatica Discharge Disposition: Home or Self Care 06/19/2024 8:00 AM EDT Office Visit [address] [phone] Latesha France MD Acute right-sided low back pain without sciatica (Primary Dx); Other migraine without status migrainosus, not intractable; Allergy history, drug 06/18/2024 Nurse Triage [address] [phone] Latesha France MD 06/18/[address] [phone] Tayler Mandujano MA Referral 06/15/[address] [phone] Latesha France MD Back Pain; Migraine 06/13/2024 Telephone Orthopedic Surgery [facility] [address] [phone] Jad Ortega DPM 06/08/2024 10:45 AM EDT Consult Orthopedic [facility] [address] [phone] Jad Ortega DPM Right foot pain (Primary Dx); Capsulitis of right foot; Lumbosacral radiculopathy 06/01/[address] [phone] Latesha France MD Back Pain; Migraine; Abdominal Pain 05/29/2024 12:45 PM EST - 05/29/2024 11:59 PM EST Hospital Encounter [facility] Xray [address] [place] [phone] Syncope and collapse Discharge Disposition: Home or Self Care 05/28/2024 Telephone Adult Medicine [address] [phone] Rosy Springer MA Back Pain 05/24/2024 12:02 PM EST - 05/24/2024 11:59 PM EST Hospital Encounter XR - [address] [phone] Upper back pain Discharge Disposition: Home or Self Care 05/24/2024 12:01 PM EST - 05/24/2024 11:59 PM EST Hospital Encounter XR - [address] [phone] Right foot pain Discharge Disposition: Home or Self Care 05/24/2024 11:30 AM EST Office Visit Adult [address] [phone] Latesha France MD Dizziness (Primary Dx); Idiopathic pyuria; Upper back pain; Right foot pain 05/22/2024 4:50 PM EST - 05/22/2024 7:51 PM EST Emergency [facility] Emergency [address] [place] [phone] Jose Romo MD Lightheadedness (Primary Dx) Discharge Disposition: Home or Self Care 05/22/2024 Telephone Adult [address] [phone] Tayler Mandujano MA 05/16/2024 9:00 AM EST Ancillary Procedure [facility] Cardiology [facility] [address] [place] [phone] Cold foot; Decreased dorsalis pedis pulse 05/15/2024 Telephone [facility] Cardiology [facility] - [facility] [address] [place] [phone] Maria Eugenia Mccartney MD TILT TABLE TEST (TILT TABLE TEST PT AT [facility]) 05/14/2024 Telephone Adult Medicine [address], [place] [phone] Latesha France MD Hypotension 05/11/2024 2:40 PM EST Consult Gastroenterology - [place] [address] [facility] [address] [place] [address] Yanet Guy, LEANA Irritable bowel syndrome with constipation (Primary Dx); Marijuana use, continuous; Complaining of cold hands; Cold foot 05/10/2024 9:00 AM EST Office Visit [address] [phone] Latesha France MD Anemia, unspecified type (Primary Dx); Lower abdominal pain; Menorrhagia with regular cycle; Frequent stools 05/01/[address] [phone] Latesha France MD Hospital Follow-up (PATIENT IS STILL HAVING ABDOMINAL PAIN 6/10 PAIN) 04/30/2024 10:15 AM EST Office Visit Obstetrics and Gynecology - [address] [phone] Sally Kinney CNM Menorrhagia with regular cycle (Primary Dx); Crampy pain associated with menses; Dysuria 04/26/[address] [phone] Latesha France MD Hospital Follow-up ([facility]/04/26/24) 04/25/2024 Nurse Triage Adult [address] [phone] Latesha France MD Abdominal Pain; Diarrhea 04/24/2024 1:00 PM EST Office Visit [address] [phone] Latesha France MD Proteinuria, unspecified type (Primary Dx); Complaining of cold hands; Cold foot; Borderline blood pressure; Decreased dorsalis pedis pulse; Abdominal discomfort; Abnormal CBC 04/13/2024 Telephone Adult [address] [phone] Latesha France MD [facility] Follow-up 04/12/2024 Telephone Adult [address] [phone] Latesha France MD 04/09/2024 1:00 PM EST Office Visit Adult [address] [phone] Jennifer Bey PA Upper respiratory tract infection, unspecified type (Primary Dx); Nasal congestion; Abdominal cramping; Menorrhagia with regular cycle 04/05/2024 Telephone Adult [address] [phone] Latesha France MD URI from Last 3 Months Immunizations Name Administration Dates Next Due HPV 9-valent (Gardisil) 9yo to less than 46yo 03/07/2024,10/04/2023,08/23/2023 Tdap Tetanus diptheria acell ular pertussis (Boostrix; Adacel) 7yo and older 04/07/2023 Medical History Medical History Date Comments Vasovagal syncope DX:Vasovagal s yncope Family History Medical History Relation Name Comments No Known Problems Father No Known Problems Maternal Grandfather Ovarian cancer Mother's side great great aunt No Known Problems Paternal Grandfather Breast cancer Neg Hx Cancer of Small Bowel Neg Hx Colon cancer Neg Hx Kidney cancer Neg Hx Pancreatic cancer Neg Hx Uterine cancer Neg Hx Relation Name Status Comments Father Maternal Grandfather Mother's side Alive Paternal Grandfather Social History Tobacco Use Types Packs/Day Years Used Date Smoking Tobacco: Never Smokeless Tobacco: Never Tobacco Cessation:Counseling Given: Not Answered Alcohol Use Standard Drinks/Week Comments Never 0 (1 standard drink = 0.6 oz pur e alcohol) Comments No Sex and Gender Information Value Date Recorded Sex Assigned at Female 05/22/2024 3:58 PM EST Legal Sex Female 5:43 AM EST Gender Identity Female 05/22/2024 3:58 PM EST Sexual Orientation Choose not to disclose 2024 3:58 PM EST Obstetrics History Para Term AB IAB SAB Ectopic Multiple Livin g Live Births 0 0 0 0 0 0 0 0 0 0 0 Last Filed Vital Signs Vital Sign Reading Time Taken Comments Blood Pressure 90/60 06/19/2024 7:48 AM EDT Pulse 80 06/19/2024 7:48 AM EDT Temperature 36.4 ??C (97.5 ??F) 06/19/2024 7:48 AM ED T Respiratory Rate 12 06/19/2024 7:48 AM EDT Oxygen Saturation 100% 05/22/2024 7:15 PM EST Inhaled Oxygen Concentration - - Weight 50.3 kg (111 lb) 06/19/2024 7:48 AM EDT Height 149.9 cm (4' 11 ) 06/19/2024 7:48 AM EDT Body Mass Index 22.42 06/19/2024 7:48 AM EDT Plan of Treatment Upcoming Encounters Date Type Department Care Team (Late st Contact Info) Description 07/11/2024 2:40 PM EDT Office Visit [facility] [address] [place] [address] [address] [place] [phone] Yamilex Eagle NP [address] [place] [address] [place] [address] 07/13/2024 1:45 PM EDT Office Visit Obstetrics and Gynecology [address] [phone] Sayda Sarmiento MD [address] [place] [address] 07/26/2024 9:30 AM EDT Office Visit Orthopedic Surgery - [place] [address] 175 [facility] [address] [place] [phone] Jad Ortega DPM 175 [facility] [address] [place] [address] 03/22/2025 3:00 PM EST Office Visit [place] [facility] [address] [place] [phone] Latesha France MD [address] [facility] [place] [address] Health Maintenance Due Date Last Done Comments Meningococcal B Vaccine (1 o f 2 - Standard) 2017 Hepatitis B Vaccines (1 of 3 - 19+ 3-dose series) 2020 HIV Screening 02/28/2022 Hepatitis C Screening 02/28/2022 Social Influencers of Health Screening 02/28/2022 COVID-19 Vaccine (3 - 2023-2 5 season) 2023 08/22/2020, 07/25/2020 Depression Screening 07/28/2024 07/29/2023 Influenza Vaccine (Season Ended) 2024 Gonorrhea/Chlamydia Screening 04/30/2025 04/30/2024 Cervical Cancer Screening: P ap Smear 08/29/2026 08/30/2023, 08/30/2023, 08/30/2023 Cholesterol Screening (Lipid Panel) 04/07/2028 04/07/2023 DTaP,Tdap,and Td Vaccines (2 - Td or Tdap) 04/07/2033 04/07/2023 HPV Vaccines Completed 03/07/2024, 10/04/2023, 08/23/2023 HIB Vaccines Aged Out No longer eligi ble based on patient's age to complete this topic Hepatitis A Vaccines Aged Out No long er eligible based on patient's age to complete this topic IPV Vaccines Aged Out No longer eligi ble based on patient's age to complete this topic MMR Vaccines Aged Out No longer eligi ble based on patient's age to complete this topic Meningococcal ACWY Vaccine Aged Out N o longer eligible based on patient's age to complete this topic Pneumococcal Vaccine: Pediatrics (0 to 5 Years) and At-Risk Patients (6 to 64 Years) Aged Out No longer eligible b ased on patient's age to complete this topic RSV Immunization Patients Under 20 months Aged Out No longer eligible b ased on patient's age to complete this topic Varicella Vaccines Aged Out No longer eligible based on patient's age to complete this topic Procedures Procedure Name Priority Date/Time Associated Diagnosis Comments MR BRAIN WO CONTRAST Routine 06/26/2024 2:39 PM EDT Other migraine without status migrainosus, not intractable XR LUMBAR SPINE 4+ VIEWS Routine 06/19/2024 8:50 AM EDT Acute right-sided low back pain without sciatica TILT TABLE Routine 05/29/2024 1:22 PM EST Syncope and collapse EXTERNAL TILT 05/29/2024 ROMAN URINE CULTURE TUBE Routine 05/24/2024 1:52 PM EST Idiopathic pyuria URINALYSIS WITH REFLEX MICROSCOPIC AND CULTURE Routine 05/24/2024 12:41 PM EST Idiopathic pyuria URINALYSIS WITH REFLEX MICROSCOPIC AND CULTURE Routine 05/24/2024 12:41 PM EST Idiopathic pyuria CBC WITH AUTO DIFFERENTIAL Routine 05/24/2024 12:40 PM EST Leukopenia, unspecified type Frequent stools CBC AND DIFFERENTIAL Routine 05/24/2024 12:40 PM EST Leukopenia, unspecified type Frequent stools XR THORACIC SPINE 2 VIEWS Routine 05/24/2024 12:16 PM EST Upper back pain XR FOOT 3+ VIEWS RIGHT Routine 12:16 PM EST Right foot pain EXTERNAL XRAY REPORT 05/24/2024 EXTERNAL XRAY REPORT 05/24/2024 ECG ANNOTATED 05/23/2024 ECG 12-LEAD STAT 05/22/2024 6:00 PM EST [id number], RSV, FLU A AND B QUALITATIVE RT-PCR, INTERNAL LAB STAT 05/22/2024 5:42 PM EST ROMAN URINE CULTURE TUBE STAT 05/22/2024 3:46 PM EST URINALYSIS WITH REFLEX MICROSCOPIC AND CULTURE STAT 05/22/2024 3:46 PM EST HCG QUALITATIVE, URINE STAT 3:46 PM EST URINALYSIS WITH REFLEX MICROSCOPIC AND CULTURE STAT 05/22/2024 3:46 PM EST CULTURE URINE STAT 05/22/2024 3:46 PM EST CBC WITH AUTO DIFFERENTIAL STAT 05/22/2024 3:36 PM EST BASIC METABOLIC PANEL STAT 05/22/2024 3:36 PM EST CBC AND DIFFERENTIAL STAT 05/22/2024 3:36 PM EST GIARDIA ANTIGEN Routine 05/22/2024 10:05 AM EST Frequent stools OVA AND PARASITE EXAMINATION Routine 05/19/2024 11:59 AM EST Leukopenia, unspecified type Frequent stools VAS US DUPLEX LOWER EXT ARTERIES BILAT WITH JONO Routine 05/16/2024 10:02 AM EST Cold foot Decreased dorsalis pedis pulse OVA AND PARASITE EXAMINATION Routine 05/15/2024 8:24 PM EST Leukopenia, unspecified type Frequent stools COMPLETE BLOOD COUNT Routine 05/14/2024 3:01 PM EST Anemia, unspecified type OVA AND PARASITE EXAMINATION Routine 05/12/2024 4:59 PM EST Frequent stools ROMAN URINE CULTURE TUBE Routine 05/10/2024 9:55 AM EST Lower abdominal pain URINALYSIS WITH REFLEX MICROSCOPIC AND CULTURE Routine 05/10/2024 9:55 AM EST Lower abdominal pain CBC WITH AUTO DIFFERENTIAL Routine 05/10/2024 9:55 AM EST Frequent stools URINALYSIS WITH REFLEX MICROSCOPIC AND CULTURE Routine 05/10/2024 9:55 AM EST Lower abdominal pain SEDIMENTATION RATE Routine 05/10/2024 9: 55 AM EST Frequent stools COMPREHENSIVE METABOLIC PANEL Routine 05/10/2024 9:55 AM EST Frequent stools CBC AND DIFFERENTIAL Routine 05/10/2024 9:55 AM EST Frequent stools CT ABDOMEN PELVIS W CONTRAST Routine 05/01/2024 2:42 PM EST US PELVIS TRANSVAGINAL NON OB Routine 05/01/2024 2:40 PM EST COMPLETE BLOOD COUNT Routine 04/30/2024 11:43 AM EST Menorrhagia with regular cycle Crampy pain associated with menses THYROID STIMULATING HORMONE Routine 04/30/2024 11:43 AM EST Vasovagal syncope MONIKA IFA WITH TITER AND PATTERN Routine 04/30/2024 11:43 AM EST Complaining of cold hands Cold foot POC URINE AUTO W/O MICRO Routine 04/30/2024 11:01 AM EST Menorrhagia with regular cycle Crampy pain associated with menses Dysuria CULTURE URINE Routine 04/30/2024 11:01 AM EST Dysuria TRICHOMONAS VAGINALIS ANTIGEN Routine 04/30/2024 10:52 AM EST Menorrhagia with regular cycle Crampy pain associated with menses WET PREP, GENITAL Routine 04/30/2024 10: 52 AM EST Menorrhagia with regular cycle Crampy pain associated with menses CHLAMYDIA TRACHOMATIS AND NEISSERIA GONORRHOEAE PCR Routine 04/30/2024 10:52 AM EST Menorrhagia with regular cycle Crampy pain associated with menses ROMAN URINE CULTURE TUBE Routine 04/24/2024 2:10 PM EST Proteinuria, unspecified type URINALYSIS WITH REFLEX MICROSCOPIC AND CULTURE Routine 04/24/2024 2:10 PM EST Proteinuria, unspecified type URINALYSIS WITH REFLEX MICROSCOPIC AND CULTURE Routine 04/24/2024 2:10 PM EST Proteinuria, unspecified type CULTURE URINE Routine 04/24/2024 2:10 PM EST Proteinuria, unspecified type CBC WITH AUTO DIFFERENTIAL Routine 04/24/2024 2:09 PM EST Abnormal CBC CBC AND DIFFERENTIAL Routine 04/24/2024 2:09 PM EST Abnormal CBC HM HPV Routine 08/30/2023 HM DEPRESSION SCREENING Routine 07/29/2023 LIPID PANEL Routine 04/07/2023 from Last 3 Months or Most Recently Relevant to Health Maintenance Results * MR Brain wo Contrast (06/26/2024 2:39 PM EDT) Anatomical Region Laterality Modality Head and Neck Magnetic Resonan ce 06/26/2024 3:27 PM EDT Impressions 06/26/2024 3:46 PM EDT Nonspecific solitary tiny white matter lesion left frontal lobe. Otherwise, unremarkable exam. -------- FINAL REPORT -------- Dictated By: Iwona Swan Dictated Date: 06/26/2024 15:27 ET Assigned Physician: Iwona Swan Reviewed and Electronically Signed By: Iwona Swan Signed Date: 06/26/2024 15:46 ET Workstation ID: [id number] Transcribed By: Self Edit Transcribed Date: 06/26/2024 15:27 ET Narrative 06/26/2024 3:46 PM EDT MR BRAIN WO CONTRAST MRI BRAIN WITHOUT CONTRAST HISTORY: Daily migraine. COMPARISON: None. Technique: MRI of the brain without contrast was performed utilizing the standard departmental protocol. FINDINGS: There is a solitary T2/FLAIR hyperintense lesion in the subcortical white matter of the posterior left frontal lobe. The ventricles and sulci are normal in size and symmetric. There is no acute intracranial hemorrhage or acute infarct. There is no mass effect or midline shift. The basal cisterns are patent. The pituitary gland is grossly unremarkable. Infundibulum is midline. The paranasal sinuses and mastoid air cells are clear. There is no abnormality at the foramen magnum. Procedure Note Iwona Swan MD - 06/26/2024 MR BRAIN WO CONTRAST MRI BRAIN WITHOUT CONTRAST HISTORY: Daily migraine. COMPARISON: None. Technique: MRI of the brain without contrast was performed utilizing the[facility] departmental protocol. FINDINGS: There is a solitary T2/FLAIR hyperintense lesion in the subcortical whitematter of the posterior left frontal lobe. The ventricles and sulci are normal in size and symmetric. There is noacute intracranial hemorrhage or acute infarct. There is no mass effect ormidline shift. The basal cisterns are patent. The pituitary gland is grossly unremarkable. Infundibulum is midline. The paranasal sinuses and mastoid air cells are clear. There is no abnormality at the foramen magnum. IMPRESSION: Nonspecific solitary tiny white matter lesion left frontal lobe.Otherwise, unremarkable exam. -------- FINAL REPORT -------- Dictated By: Iwona Swan Dictated Date: 06/26/2024 15:27 ET Assigned Physician: Iwona Swan Reviewed and Electronically Signed By: Iwona Swan Signed Date: 06/26/2024 15:46 ET Workstation ID: [id number] Transcribed By: Self Edit Transcribed Date: 06/26/2024 15:27 ET us Latesha France MD IMG MRI PROCEDURES Final Re sult * XR Lumbar Spine 4+ Views (06/19/2024 8:50 AM EDT) Anatomical Region Laterality Modality Spine, L-spine Radiographic Domonique ging 06/19/2024 12:3 8 PM EDT Impressions 06/19/2024 12:40 PM EDT Unremarkable lumbar spine. Moderate constipation. -------- FINAL REPORT -------- Dictated By: Iwona Swan Dictated Date: 06/19/2024 12:38 ET Assigned Physician: Iwona Swan Reviewed and Electronically Signed By: Iwona Swan Signed Date: 06/19/2024 12:40 ET Workstation ID: [id number] Transcribed By: Self Edit Transcribed Date: 06/19/2024 12:38 ET Narrative 06/19/2024 12:40 PM EDT LUMBOSACRAL SPINE, ??4 VIEWS INCLUDING OBLIQUES HISTORY: ??Acute right low back pain. FINDINGS: There is normal alignment of the lumbosacral spine. ??No fractures are seen. No gross degenerative changes are seen. There is stool present throughout the colon. Procedure Note Iwona Swan MD - 06/19/2024 LUMBOSACRAL SPINE, 4 VIEWS INCLUDING OBLIQUES HISTORY: Acute right low back pain. FINDINGS: There is normal alignment of the lumbosacral spine. No fractures areseen. No gross degenerative changes are seen. There is stool present throughout the colon. IMPRESSION: Unremarkable lumbar spine. Moderate constipation. -------- FINAL REPORT -------- Dictated By: Iwona Swan Dictated Date: 06/19/2024 12:38 ET Assigned Physician: Iwona Swan Reviewed and Electronically Signed By: Iwona Swan Signed Date: 06/19/2024 12:40 ET Workstation ID: [id number] Transcribed By: Self Edit Transcribed Date: 06/19/2024 12:38 ET us Latesha France MD IMG XR PROCEDURES Final Res ult * Tilt table (05/29/2024 1:22 PM EST) Anatomical Region Laterality Modality Radiographic Domonique ging Narrative 05/29/2024 2:08 PM EST No evidence for vasovagal syncope today. Symptoms with faster HR and normal BP. ??Doesn't really look like typical POTS presentation. I have encouraged her to increase fluid and salt intake. CSM negative Tilt Table The patient was brought to lab in fasting state. Patient lied supine for 5 minutes for equilibrium. Baseline ECG showed normal sinus rhythm. Baseline supine minimum BP: 99/70 mmHg Baseline supine maximum BP: 126/73 mmHg Baseline supine minimum HR: 78 bpm Baseline supine maximum HR: 80 bpm Patient tilted to 70 degrees. Tilt maintained for 20 minutes. Minimum BP during tilt: 100/64 mmHg Maximum BP during tilt: 146/80 mmHg Minimum heart rate during tilt: 67 bpm Maximum heart rate during tilt: 81 bpm Rhythm during tilt: normal sinus rhythm There was a clear orthostatic response not noted. Patient experienced a physiologic HR increase with tilt. Nitroglycerin was given during the test. Minimum BP under nitroglycerin: 120/57 Maximum BP under nitroglycerin: 131/77 Minimum HR under nitroglycerin: 81 Maximum HR under nitroglycerin: 144 Rhythm after nitroglycerin administration was sinus tachycardia. There was a clear orthostatic response not noted. Patient experienced an exaggerated HR increase with nitroglycerin. Symptoms seen after the nitroglycerin dose include: dizziness. Syncope/presyncope symptoms were reproduced. Carotid message was performed. No significate response seen with carotid message. Conclusion: Negative tilt test. Maria Eugenia Mccartney MD [facility] PROCEDURES Final Result * External Tilt (05/29/2024) Anatomical Region Laterality Modality Cardiac Diagnost ic Provider [facility] PROC EDURES Final Result * Roman urine culture tube (05/24/2024 1:52 PM EST) Only the most recent of4 resultswithin the time period is included. Extra Tube Hold for add-ons. 05/24/2024 7:01 PM EST [facility] Comment:Auto resulted. Urine Urine specimen obtained by clean catch procedure / Unknown Non-blood Collection / Unknown 05/24/2024 1:52 PM EST 05/24/2024 1:52 PM EST Latesha France MD LAB URINE ORDERABLES Final Result [facility] [address] [place] [address], [place] [phone] * Urinalysis with reflex microscopic and culture (05/24/2024 12:41 PM EST) Only the most recent of4 resultswithin the time period is included. Specific Bryant Urine 1.005 1.003 - 1.030 LAB URINALYSIS - AUTOMATED METHOD 05/24/2024 5:34 PM [facility] pH, Urine 6.0 5.0 - 8.0 pH LAB URINALYSIS - AUTOMATED METHOD 05/24/2024 5:34 PM [facility] Leukocytes, Urine Negative Negative LAB URINALYSIS - AUTOMATED METHOD 05/24/2024 5:34 PM [facility] Nitrite, Urine Negative Negative LAB URINALYSIS - AUTOMATED METHOD 05/24/2024 5:34 PM [facility] Protein, Urine Negative <=Trace mg/dL LAB URINALYSIS - AUTOMATED METHOD 05/24/2024 5:34 PM [facility] Glucose, Urine Negative Negative mg/dL LAB URINALYSIS - AUTOMATED METHOD 05/24/2024 5:34 PM [facility] Ketones, Urine Negative Negative mg/dL LAB URINALYSIS - AUTOMATED METHOD 05/24/2024 5:34 PM [facility] Urobilinogen, Urine 0.2 0.2 - 1.0 mg/dL LAB URINALYSIS - AUTOMATED METHOD 05/24/2024 5:34 PM [facility] Bilirubin, Urine Negative Negative LAB URINALYSIS - AUTOMATED METHOD 05/24/2024 5:34 PM [facility] Blood, Urine Negative Negative LAB URINALYSIS - AUTOMATED METHOD 05/24/2024 5:34 PM [facility] Urine Urine specimen obtained by clean catch procedure / Unknown Non-blood Collection / Unknown 05/24/2024 12:41 PM EST 05/24/2024 12:41 PM EST us Latesha France MD LAB URINE ORDERABLES Final Result [facility] [address] [place] [address], * CBC auto differential (05/24/2024 12:40 PM EST) Only the most recent of4 resultswithin the time period is included. WBC 6.4 4.8 - 10.8 K/mcL LAB HEMETOLOGY METHOD 05/24/2024 2:02 PM [facility] RBC 4.10 3.80 - 4.80 M/mcL LAB HEMETOLOGY METHOD 05/24/2024 2:02 PM [facility] Hemoglobin 12.3 11.5 - 16.0 g/dL LAB HEMETOLOGY METHOD 05/24/2024 2:02 PM [facility] Hematocrit 37.7 35.0 - 47.0 % LAB HEMETOLOGY METHOD 05/24/2024 2:02 PM [facility] MCV 92.0 79.0 - 98.0 FL LAB HEMETOLOGY METHOD 05/24/2024 2:02 PM [facility] MCH 30.0 27.0 - 32.0 pcg LAB HEMETOLOGY METHOD 05/24/2024 2:02 PM [facility] MCHC 32.6 32.0 - 37.0 g/dL LAB HEMETOLOGY METHOD 05/24/2024 2:02 PM [facility] RDW 12.3 11.0 - 15.0 % LAB HEMETOLOGY METHOD 05/24/2024 2:02 PM [facility] Platelets 247 130 - 400 K/mcL LAB HEMETOLOGY METHOD 05/24/2024 2:02 PM [facility] MPV 11.0 7.0 - 11.0 FL LAB HEMETOLOGY METHOD 05/24/2024 2:02 PM [facility] NRBC 0.0 <1.0 % LAB HEMETOLOGY METHOD 05/24/2024 2:02 PM [facility] NRBC Absolute 0.00 <0.10 K/mcL LAB HEMETOLOGY METHOD 05/24/2024 2:02 PM [facility] Neutrophils Relative 62.3 % LAB HEMETOLOGY METHOD 05/24/2024 2:02 PM [facility] Lymphocytes Relative 23.1 % LAB HEMETOLOGY METHOD 05/24/2024 2:02 PM [facility] Monocytes Relative 7.1 % LAB HEMETOLOGY METHOD 05/24/2024 2:02 PM [facility] Eosinophils Relative 6.9 % LAB HEMETOLOGY METHOD 05/24/2024 2:02 PM [facility] Basophils Relative 0.3 % LAB HEMETOLOGY METHOD 05/24/2024 2:02 PM [facility] Immature Granulocytes Relative 0.3 % LAB HEMETOLOGY METHOD 05/24/2024 2:02 PM [facility] Neutrophils Absolute 3.97 1.50 - 7.00 K/mcL LAB HEMETOLOGY METHOD 05/24/2024 2:02 PM [facility] Lymphocytes Absolute 1.47 1.00 - 5.00 K/mcL LAB HEMETOLOGY METHOD 05/24/2024 2:02 PM [facility] Monocytes Absolute 0.45 0.20 - 1.00 K/mcL LAB HEMETOLOGY METHOD 05/24/2024 2:02 PM [facility] Eosinophils Absolute 0.44 0.00 - 0.50 K/mcL LAB HEMETOLOGY METHOD 05/24/2024 2:02 PM [facility] Basophils Absolute 0.02 0.00 - 0.20 K/mcL LAB HEMETOLOGY METHOD 05/24/2024 2:02 PM [facility] Immature Granulocytes Absolute 0.02 0.00 - 0.03 K/mcL LAB HEMETOLOGY METHOD 05/24/2024 2:02 PM EST [facility] Blood Venous blood specimen / Unknown Venipuncture / Unknown 05/24/2024 12:40 PM EST 05/24/2024 12:40 PM EST us Latesha France MD LAB BLOOD ORDERABLES Final Result [facility] [address] [place] [address], [place] [phone] * XR Thoracic Spine 2 Views (05/24/2024 12:16 PM EST) Anatomical Region Laterality Modality Spine, T-spine Radiographic Domonique ging 05/24/2024 8:50 PM EST Impressions 05/24/2024 8:53 PM EST Minimal degenerative changes. POS - [id number] -------- FINAL REPORT -------- Dictated By: Merle Rao Dictated Date: 05/24/2024 20:50 ET Assigned Physician: Merle Rao Reviewed and Electronically Signed By: Merle Rao Signed Date: 05/24/2024 20:53 ET Workstation ID: [id number] Transcribed By: Self Edit Transcribed Date: 05/24/2024 20:50 ET Narrative 05/24/2024 8:53 PM EST EXAM: Thoracic spine x-ray HISTORY: Upper back pain. COMPARISON: 01/26/2024 FINDINGS: AP and lateral views performed. Vertebral body heights are maintained. ??Minimal endplate spurring in the lower spine. ??Intervertebral disc spaces are maintained. ??No subluxation. ??Pedicles appear intact. Procedure Note Merle Rao MD - 05/24/2024 EXAM: Thoracic spine x-ray HISTORY: Upper back pain. COMPARISON: 01/26/2024 FINDINGS: AP and lateral views performed. Vertebral body heights are maintained. Minimal endplate spurring in thelower spine. Intervertebral disc spaces are maintained. No subluxation.Pedicles appear intact. IMPRESSION: Minimal degenerative changes. POS - [id number] -------- FINAL REPORT -------- Dictated By: Merle Rao Dictated Date: 05/24/2024 20:50 ET Assigned Physician: Merle Rao Reviewed and Electronically Signed By: Merle Rao Signed Date: 05/24/2024 20:53 ET Workstation ID: [id number] Transcribed By: Self Edit Transcribed Date: 05/24/2024 20:50 ET us Latesha France MD IMG XR PROCEDURES Final Res ult * XR Foot 3+ Views Right (05/24/2024 12:16 PM EST) Anatomical Region Laterality Modality Lower Extremities, Foot Right Radiogra phic Imaging 05/24/2024 8:44 PM EST Impressions 05/24/2024 8:47 PM EST No acute bony abnormality or arthritic changes. POS - [id number] -------- FINAL REPORT -------- Dictated By: Merle Rao Dictated Date: 05/24/2024 20:44 ET Assigned Physician: Merle Rao Reviewed and Electronically Signed By: Merle Rao Signed Date: 05/24/2024 20:47 ET Workstation ID: [id number] Transcribed By: Self Edit Transcribed Date: 05/24/2024 20:44 ET Narrative 05/24/2024 8:47 PM EST EXAM: Right foot x-ray HISTORY: Right foot pain. COMPARISON: None FINDINGS: 3 weightbearing views were performed. No acute fracture or malalignment detected. ??Joint spaces are maintained. ??No destructive or erosive bony changes. ??No soft tissue calcifications. Procedure Note Merle Rao MD - 05/24/2024 EXAM: Right foot x-ray HISTORY: Right foot pain. COMPARISON: None FINDINGS: 3 weightbearing views were performed. No acute fracture or malalignment detected. Joint spaces are maintained.No destructive or erosive bony changes. No soft tissue calcifications. IMPRESSION: No acute bony abnormality or arthritic changes. POS - [id number] -------- FINAL REPORT -------- Dictated By: Merle Rao Dictated Date: 05/24/2024 20:44 ET Assigned Physician: Merle Rao Reviewed and Electronically Signed By: Merle Rao Signed Date: 05/24/2024 20:47 ET Workstation ID: [id number] Transcribed By: Self Edit Transcribed Date: 05/24/2024 20:44 ET Latesha France MD IMG XR PROCEDURES Final Res ult * External Xray Report (05/24/2024) Only the most recent of2 resultswithin the time period is included. Anatomical Region Laterality Modality Radiographic Domonique ging Provider [facility] IMG XR PROCEDURES Final Result * ECG-Annotated (05/23/2024) Result [facility] Provider Onbase ECG ORDERABLES Final Result * ECG 12 lead (05/22/2024 6:00 PM EST) Ventricular Rate ECG 74 BPM GEMUSE Atrial Rate 74 BPM GEMUSE P-R Interval 114 ms GEMUSE QRS Duration 72 ms GEMUSE Q-T Interval 382 ms GEMUSE QTc 424 ms GEMUSE P Wave [place] 54 degrees GEMUSE R [place] 47 degrees GEMUSE T [place] 50 degrees GEMUSE ECG Interpretation Normal sinus rhythm When compared with ECG of 09-MAR-2024 10:01, No significant change was found Confirmed by CARLITO AMAYA ([id number]) on 05/23/2024 7:46:44 PM GEMUSE 05/22/2024 6:00 PM EST 05/23/2024 7:46 PM EST Jose Romo MD ECG ORDERABLES Final Res ult GEMUSE * [id number], RSV, Influenza A and B qualitative RT-PCR (05/22/2024 5:42 PM EST) Influenza A PCR Not Detected Not Detected LAB MICROBIOLOGY METHOD 05/22/2024 7:00 PM EST [facility] Influenza B PCR Not Detected Not Detected LAB MICROBIOLOGY METHOD 05/22/2024 7:00 PM EST [facility] RSV PCR Not Detected Not Detected LAB MICROBIOLOGY METHOD 05/22/2024 7:00 PM EST [facility] SARS COV-2 Not Detected Not Detected LAB MICROBIOLOGY METHOD 05/22/2024 7:00 PM [facility] Swab Both anterior nares / Unknown Non-blood Collection / Unknown 05/22/2024 5:42 PM EST 05/22/2024 6:16 PM EST [facility] - 05/22/2024 7:00 PM EST Disclaimer: ??Testing was performed using the [employer] GeneXpert Xpress SARS-CoV-2 _Flu_RSV PLUS PCR assay. ??The manner in which this information is used to guide patient care is the responsibility of the healthcare provider. ??Results should be correlated with the clinical history, epidemiological data, and other data available to the clinician evaluating the patient. ??Negative results do not preclude infection. ??This test has been authorized by the FDA under an Emergency Use Authorization (EUA). ??This test is only authorized for the duration of time the declaration that circumstances exist justifying the authorization of the emergency use of in vitro diagnostic tests for detection of SARS-CoV-2 virus and/or diagnosis of COVID-19 infection under section 564 (b) (1) of the Act, 21 U.S.C 360bbb-3 (b) (1), unless the authorization is terminated or revoked sooner. ?? Reference Range: Not Detected Fact sheet for Healthcare providers can be found at https://www.fda.gov/media/874171/download. ?? Fact sheet for Healthcare patients can be found at https://www.fda.gov/media/015118/download. Paulino JONES LAB MICROBIOLOGY - GENERA L ORDERABLES Final Result Performing Organization Address [facility]/ZIP Co de Phone Number [facility] [address] [place] [address], * HCG qualitative, urine (05/22/2024 3:46 PM EST) Preg Test, Ur Negative Negative 05/22/2024 4:17 PM EST [facility] Urine Urine specimen from urethra / Unknown Non-blood Collection / Unknown 05/22/2024 3:46 PM EST 05/22/2024 3:52 PM EST Jose Romo MD LAB URINE ORDERABLES Teresa l Result Performing Organization Address [facility] Co de Phone Number [facility] [address] [place] [address], * Culture urine (05/22/2024 3:46 PM EST) Only the most recent of3 resultswithin the time period is included. Pathologist [facility] Culture, Urine No growth 05/23/2024 1:23 PM EST [facility] Urine Urine specimen obtained by clean catch procedure / Unknown Non-blood Collection / Unknown 05/22/2024 3:46 PM EST 05/22/2024 4:30 PM EST Jose Romo MD LAB MICROBIOLOGY - GENERA L ORDERABLES Final Result Performing Organization Address [facility]/ZIP Co de Phone Number [facility] [address] [place] [address], [place] [phone] * Basic metabolic panel (05/22/2024 3:36 PM EST) Sodium 136 133 - 145 mmol/L LAB CHEMISTRY METHOD 05/22/2024 4:38 PM EST [facility] Potassium 4.1 3.5 - 5.5 mmol/L LAB CHEMISTRY METHOD 05/22/2024 4:38 PM [facility] Chloride 105 96 - 110 mmol/L LAB CHEMISTRY METHOD 05/22/2024 4:38 PM [facility] CO2 25 21 - 32 mmol/L LAB CHEMISTRY METHOD 05/22/2024 4:38 PM [facility] Anion Gap 6 3 - 11 LAB CHEMISTRY METHOD 05/22/2024 4:38 PM [facility] Glucose 90 70 - 100 mg/dL LAB CHEMISTRY METHOD 05/22/2024 4:38 PM [facility] BUN 11 5 - 25 mg/dL LAB CHEMISTRY METHOD 05/22/2024 4:38 PM [facility] Creatinine 0.50 0.50 - 1.10 mg/dL LAB CHEMISTRY METHOD 05/22/2024 4:38 PM [facility] eGFR 135 >=60 mL/min/1. 73m2 LAB CHEMISTRY METHOD 05/22/2024 4:38 PM [facility] Comment:Calculation based on the??Chronic Kidney Disease Epidemiology Collaboration (CKD-EPI) equation refit??without adjustment for race. BUN/Creatinine Ratio 22.0 LAB CHEMISTRY METHOD 05/22/2024 4:38 PM [facility] Calcium 9.2 8.5 - 10.5 mg/dL LAB CHEMISTRY METHOD 05/22/2024 4:38 PM [facility] Blood Venous blood specimen / Unknown Venipuncture / Unknown 05/22/2024 3:36 PM EST 05/22/2024 3:52 PM EST us Jose Romo MD LAB BLOOD ORDERABLES Teresa faith Result [facility] [address] [place] [address], * Giardia antigen (05/22/2024 10:05 AM EST) Giardia lamblia Antigen Negative Negative 05/23/2024 5:13 PM EST [facility] Stool Rectum structure / Unknown Non-blood Collection / Unknown 05/22/2024 10:05 AM EST 05/23/2024 1:33 PM EST Latesha France MD LAB MICROBIOLOGY - GENERAL ORDERABLES Final Result Performing Organization Address [facility]/ZIP Co de Phone Number [facility] [address] [place] [address], [place] [phone] * Ova and parasite examination (05/19/2024 11:59 AM EST) Only the most recent of3 resultswithin the time period is included. Ova and Parasite No Ova or Parasite seen. 06/04/2024 11:18 AM EDT [facility] Stool Rectum structure / Unknown Non-blood Collection / Unknown 05/19/2024 11:59 AM EST 05/23/2024 1:46 PM EST Narrative [facility] - 06/04/2024 11:18 AM EDT Special test request required for Coccidia and Microsporidia. Latesha France MD LAB MICROBIOLOGY - GENERAL ORDERABLES Final Result Performing Organization Address City/[facility]/ZIP Co de Phone Number [facility] [address] [place] [address], [place] [phone] * Vascular US duplex lower extremity arteries bilateral with JONO (05/16/2024 10:02 AM EST) Left Dist External Iliac PSV 146 cm/s [facility] Left Prox External Iliac PSV 163 cm/s [facility] Left AT dist sys PSV 40 cm/s [facility] Left AT mid sys PSV 38 cm/s [facility] Left AT prox sys PSV 40 cm/s [facility] Left SHOW CARD LETTERER prox sys PSV 91 cm/s [facility] Left mid peroneal sys PSV 31 cm/s [facility] Left popliteal dist sys PSV 53 cm/s [facility] Left popliteal prox sys PSV 58 cm/s [facility] Left PT dist sys PSV 38 cm/s [facility] Left PT mid sys PSV 36 cm/s [facility] Left PT prox sys PSV 37 cm/s [facility] Left profunda sys PSV 106 cm/s [facility] Left super femoral dist sys PSV 86 cm/s [facility] Left super femoral mid sys PSV 106 cm/s [facility] Left super femoral prox sys PSV 108 cm/s [facility] Right Dist External Iliac PSV 173 cm/s [facility] Right Prox External Iliac PSV 125 cm/s [facility] Right AT dist sys PSV 27 cm/s [facility] Right AT mid sys PSV 30 cm/s [facility] Right AT prox sys PSV 41 cm/s [facility] Right SHOW CARD LETTERER prox sys PSV 121 cm/s [facility] Right mid peroneal sys PSV 35 cm/s [facility] Right popliteal dist sys PSV 62 cm/s [facility] Right popliteal prox sys PSV 64 cm/s [facility] Right PT dist sys PSV 47 cm/s [facility] Right PT mid sys PSV 45 cm/s [facility] Right PT prox sys PSV 46 cm/s [facility] Right profunda sys PSV 86 cm/s [facility] Right super femoral dist sys PSV 86 cm/s [facility] Right super femoral mid sys PSV 104 cm/s [facility] Right super femoral prox sys PSV 125 cm/s [facility] Right arm BP 106 mmHg [facility] Left arm BP 110 mmHg [facility] Right posterior tibial 122 mmHg [facility] Right Dorsalis Pedis 124 mmHg [facility] V[facility] Right JONO 1.13 [facility] Left posterior tibial 114 mmHg [facility] Left Dorsalis Pedis 108 mmHg [facility] Left JONO 1.04 [facility] Anatomical Region Laterality Modality Vascular, Abdomen Ultrasound Narrative 05/16/2024 10:27 PM EST Right: The JONO is 1.13 which is normal. Normal pulse volume waveform at the right ankle. Reduced amplitude PPG waveform in the digit. There is mild atherosclerotic palque in the right lower extremity arteries. There is no significant stenosis. 3-vessel runoff is noted in the right calf. Left: The JONO is 1.04 which is normal. Normal pulse volume waveform at the left ankle. Normal amplitude PPG waveform in the digit. There is mild atherosclerotic palque in the left lower extremity arteries. There is no significant stenosis. 3-vessel runoff is noted in the left calf. Right Lower Arterial Duplex The distal external iliac artery has triphasic flow. The common femoral artery has triphasic flow. The profunda femoris artery has biphasic flow. The superficial femoral artery has triphasic flow. The popliteal artery has triphasic flow. The anterior tibial artery has biphasic flow. The distal anterior tibial artery has biphasic flow. The posterior tibial artery has triphasic flow. The mid peroneal artery has triphasic flow. Left Lower Arterial Duplex The distal external iliac artery has triphasic flow. The common femoral artery has triphasic flow. The profunda femoris artery has biphasic flow. The superficial femoral artery has triphasic flow. The popliteal artery has triphasic flow. The anterior tibial artery has triphasic flow. The posterior tibial artery has triphasic flow. The mid peroneal artery has biphasic flow. Financial Operations Consultant Details A roman scale, color and doppler analysis ultrasound was performed. During the study longitudinal views were obtained. Pulsed wave doppler was performed. us Latesha France MD CV VASCULAR PROCEDURES Teresa l Result * Complete blood count (05/14/2024 3:01 PM EST) Only the most recent of2 resultswithin the time period is included. WBC 5.7 4.8 - 10.8 K/mcL LAB HEMETOLOGY METHOD 05/14/2024 6:29 PM [facility] RBC 4.00 3.80 - 4.80 M/mcL LAB HEMETOLOGY METHOD 05/14/2024 6:29 PM [facility] Hemoglobin 12.0 11.5 - 16.0 g/dL LAB HEMETOLOGY METHOD 05/14/2024 6:29 PM [facility] Hematocrit 36.3 35.0 - 47.0 % LAB HEMETOLOGY METHOD 05/14/2024 6:29 PM EST [facility] MCV 90.1 79.0 - 98.0 FL LAB HEMETOLOGY METHOD 05/14/2024 6:29 PM EST [facility] MCH 29.8 27.0 - 32.0 pcg LAB HEMETOLOGY METHOD 05/14/2024 6:29 PM EST [facility] MCHC 33.1 32.0 - 37.0 g/dL LAB HEMETOLOGY METHOD 05/14/2024 6:29 PM EST [facility] RDW 12.3 11.0 - 15.0 % LAB HEMETOLOGY METHOD 05/14/2024 6:29 PM [facility] Platelets 296 130 - 400 K/mcL LAB HEMETOLOGY METHOD 05/14/2024 6:29 PM EST [facility] MPV 10.7 7.0 - 11.0 FL LAB HEMETOLOGY METHOD 05/14/2024 6:29 PM EST [facility] NRBC 0.0 <1.0 % LAB HEMETOLOGY METHOD 05/14/2024 6:29 PM [facility] NRBC Absolute 0.00 <0.10 K/mcL LAB HEMETOLOGY METHOD 05/14/2024 6:29 PM [facility] Blood Venous blood specimen / Unknown Venipuncture / Unknown 05/14/2024 3:01 PM EST 05/14/2024 3:01 PM EST us Og JONES LAB BLOOD ORDERABLES Fin al Result [facility] [address] [place] [address], * Sedimentation rate (05/10/2024 9:55 AM EST) Pathologist [facility] Sed Rate 6 0 - 20 mm/hr LAB HEMETOLOGY METHOD 05/10/2024 2:08 PM [facility] Blood Venous blood specimen / Unknown Venipuncture / Unknown 05/10/2024 9:55 AM EST 05/10/2024 9:55 AM EST us Latesha France MD LAB BLOOD ORDERABLES Final Result [facility] [address] [place] [address], [place] [phone] * (ABNORMAL) Comprehensive metabolic panel (05/10/2024 9:55 AM EST) Sodium 137 133 - 145 mmol/L LAB CHEMISTRY METHOD 05/10/2024 12:21 PM [facility] Potassium 4.4 3.5 - 5.5 mmol/L LAB CHEMISTRY METHOD 05/10/2024 12:21 PM [facility] Chloride 105 96 - 110 mmol/L LAB CHEMISTRY METHOD 05/10/2024 12:21 PM [facility] CO2 28 21 - 32 mmol/L LAB CHEMISTRY METHOD 05/10/2024 12:21 PM [facility] Anion Gap 4 3 - 11 LAB CHEMISTRY METHOD 05/10/2024 12:21 PM [facility] Glucose 65(L) 70 - 100 mg/dL LAB CHEMISTRY METHOD 05/10/2024 12:21 PM [facility] BUN 7 5 - 25 mg/dL LAB CHEMISTRY METHOD 05/10/2024 12:21 PM [facility] Creatinine 0.62 0.50 - 1.10 mg/dL LAB CHEMISTRY METHOD 05/10/2024 12:21 PM [facility] eGFR 129 >=60 mL/min/1. 73m2 LAB CHEMISTRY METHOD 05/10/2024 12:21 PM [facility] Comment:Calculation based on the??Chronic Kidney Disease Epidemiology Collaboration (CKD-EPI) equation refit??without adjustment for race. BUN/Creatinine Ratio 11.3 LAB CHEMISTRY METHOD 05/10/2024 12:21 PM [facility] Calcium 9.4 8.5 - 10.5 mg/dL LAB CHEMISTRY METHOD 05/10/2024 12:21 PM [facility] AST (SGOT) 12 10 - 42 unit/L LAB CHEMISTRY METHOD 05/10/2024 12:21 PM [facility] ALT (SGPT) 16 10 - 60 unit/L LAB CHEMISTRY METHOD 05/10/2024 12:21 PM [facility] Alkaline Phosphatase 51 42 - 121 unit/L LAB CHEMISTRY METHOD 05/10/2024 12:21 PM [facility] Total Protein 7.3 6.0 - 8.0 g/dL LAB CHEMISTRY METHOD 05/10/2024 12:21 PM [facility] Albumin 4.1 3.2 - 5.0 g/dL LAB CHEMISTRY METHOD 05/10/2024 12:21 PM [facility] Total Bilirubin 0.3 0.0 - 1.4 mg/dL LAB CHEMISTRY METHOD 05/10/2024 12:21 PM [facility] Blood Venous blood specimen / Unknown Venipuncture / Unknown 05/10/2024 9:55 AM EST 05/10/2024 9:55 AM EST us Latesha France MD LAB BLOOD ORDERABLES Final Result [facility] [address] [place] [address], [place] [phone] * CT Abdomen Pelvis w Contrast (05/01/2024 2:42 PM EST) Anatomical Region Laterality Modality Body Computed Tomogra phy Sally Kinney CNM IMG CT PROCEDURES Final Result * US Pelvis Transvaginal Non OB (05/01/2024 2:40 PM EST) Anatomical Region Laterality Modality Body Ultrasound Sally Kinney CNM IMG US PROCEDURES Final Result * MONIKA IFA with titer and pattern (04/30/2024 11:43 AM EST) [facility] MONIKA Negative Negative 05/01/2024 10:47 AM EST [facility] Blood Venous blood specimen / Unknown Venipuncture / Unknown 04/30/2024 11:43 AM EST 04/30/2024 11:43 AM EST Latesha France MD LAB BLOOD ORDERABLES Final Result Performing Organization Address [facility]/ZIP Co de Phone Number [facility] [address] [place] [address], [place] [phone] * TSH (04/30/2024 11:43 AM EST) [facility] TSH 1.16 0.40 - 4.00 mcIU/mL LAB CHEMISTRY METHOD 04/30/2024 3:34 PM EST [facility] Blood Venous blood specimen / Unknown Venipuncture / Unknown 04/30/2024 11:43 AM EST 04/30/2024 11:43 AM EST Maria Eugenia Mccartney MD LAB BLOOD ORDERABLES Final Res ult [facility] [address] [place] [address], [place] [phone] * POC Urine Auto W/O Micro (04/30/2024 11:01 AM EST) [facility] Glucose UA POC Negative Negative, Trace mg/dL Bilirubin UA POC Negative Negative, Small Ketones UA POC Negative Negative, Trace Specific Bryant UA POC 1.025 Blood UA POC Negative Negative, Large PH UA POC 6.5 Protein UA POC Negative Negative, >=300 mg/dL Urobilinogen UA POC 0.2 E.U./dL mg/dL Nitrite UA POC Negative Negative Leukocytes UA POC Negative Negative Urine Urine specimen obtained by clean catch procedure / Unknown 04/30/2024 11:01 AM EST us Sally Kinney CNM POINT OF CARE TEST ENTER/EDIT O RDERABLES Final Result * Trichomonas vaginalis antigen (04/30/2024 10:52 AM EST) Trichomonas vaginalis Negative Negative 04/30/2024 3:02 PM EST [facility] Swab Vaginal structure / Unknown Non-blood Collection / Unknown 04/30/2024 10:52 AM EST 04/30/2024 10:53 AM EST us Sally Kinney CNM LAB MICROBIOLOGY - GENERAL ORDE RABLES Final Result [facility] [address] [place] [address], [place] [phone] * Chlamydia trachomatis and Neisseria gonorrhoeae molecular study (04/30/2024 10:52 AM EST) Pathologist [facility] Neisseria gonorrhoeae PCR Negative Negative LAB MOLECULAR DIAGNOSTICS METHOD 05/01/2024 7:20 AM EST [facility] Chlamydia trachomatis PCR Negative Negative LAB MOLECULAR DIAGNOSTICS METHOD 05/01/2024 7:20 AM EST [facility] Swab Cervix uteri structure / Unknown Non-blood Collection / Unknown 04/30/2024 10:52 AM EST 04/30/2024 10:53 AM EST us Sally ALLEN LAB MICROBIOLOGY - GENERAL ORDE RABLES Final Result [facility] [address] [place] [address], [place] [phone] * Wet prep, genital (04/30/2024 10:52 AM EST) [facility] Clue Cells, Wet Prep Negative Negative 04/30/2024 3:01 PM EST [facility] Yeast, Wet Prep Negative Negative 04/30/2024 3:01 PM EST [facility] Trichomonas, Wet Prep Indeterminate Negative 04/30/2024 3:01 PM EST [facility] Comment:Refer to Trichomonas antigen. Swab Vaginal structure / Unknown Non-blood Collection / Unknown 04/30/2024 10:52 AM EST 04/30/2024 10:53 AM EST Sally Kinney CNM LAB MICROBIOLOGY - GENERAL RITA MUÑIZ Final Result [facility] [address] [place] [address], * Cervical Cancer Screening: HPV (08/30/2023) [facility] Cervical Cancer Screening: HPV abstracted; no interpretation Historical Provider HEALTH MAINTENANCE Final Result * Depression Screening (07/29/2023) [facility] Depression Screening abstracted Historical Provider HEALTH MAINTENANCE Final Result * Lipid panel (04/07/2023) [facility] LDL/HDL Ratio 2 0 - 4 Triglycerides 49 0 - 150 mg/dL Cholesterol 165 0 - 200 mg/dL HDL 68 >=40 mg/dL LDL Cholesterol 88 0 - 100 mg/dL Blood Venous blood specimen / Unknown Historical Provider LAB BLOOD ORDERABLES Teresa l Result from Last 3 Months or Most Recently Relevant to Health Maintenance Insurance [facility] [place] [address] Care Teams Facility Supervisor Relationship Specialty Start Date End Date Latesha France MD [address] [place] [address] PCP - General Internal Medicine 02/13/24
--- OUTSIDE RECORDS SUMMARY | 2024-07-02 15:50 | XMS_ITS | Encounter Summary ---
Author Organization [facility] Address [address] [place] [address] Care Team Providers Care Mortgage Broker Name Role Phone Latesha France MD Primary Care Provider [phone] Reason for Referral * Imaging (Routine) - Closed Specialty Diagnoses / Procedures Referred By Shabbir sandoval Referred To Contact Radiology Diagnoses Other migraine without status migrainosus, not intractable Procedures MR Brain wo Contrast Latesha France MD [address] [place] [address] Phone: tel: fax: [address] Phone: tel: Referral ID Status Reason Start Date Expiration Date Visits Re quested Visits Authorized [id number] Closed 06/19/2024 08/20/2024 1 1 Reason for Visit * Imaging (Routine) - Closed Specialty Diagnoses / Procedures Referred By Contkamilla t Referred To Contact Radiology Diagnoses Other migraine without status migrainosus, not intractable Procedures MR Brain wo Contrast Latesha France MD [address] [place] [address] Phone: tel: fax: [address] Phone: tel: Referral ID Status Reason Start Date Expiration Date Visits Re quested Visits Authorized [id number] Closed 06/19/2024 08/20/2024 1 1 Encounter Details Date Type Department Care Team (Latest Contact Info) Description 06/26/2024 1:38 PM EDT - 06/26/2024 11:59 PM EDT Hospital Encounter Radiology Department - [address] [phone] Other migraine without status migrainosus, not intractable Discharge Disposition: Home or Self Care Social History Tobacco Use Types Packs/Day Years [...] PM EST documented as of this encounter Medications at Time of Discharge adapalene (DIFFERIN) 0.1 % gel Apply 1 g topically at bedtime as needed (acne). 07/29/2023 benzoyl peroxide (Acne Medication) 2.5 % gel Apply topically 2 (two) times a day. Apply 1 g topically 2 times daily as needed (acne). 30 g 06/06/2024 butalbital-acetamino phen-caffeine (FIORICET, ESGIC) 50-325-40 mg per tablet Take 1 tablet by mouth every 6 (six) hours if needed for headaches. 08/29/2023 clindamycin phosphate 1 % gel, once daily APPLY TO AFFECTED AREA TWICE A DAY 01/27/2023 cyclobenzaprine (FLEXERIL) 5 mg tablet Take 1 tablet (5 mg total) by mouth at bedtime as needed for muscle spasms (low back pain). 30 tablet 06/19/2024 diclofenac (VOLTAREN) 50 mg EC tablet Take 1 tablet (50 mg total) by mouth 2 (two) times a day if needed (pain). Do not crush, chew, or split. 28 tablet 1 05/30/2024 dicyclomine (BENTYL) 10 mg capsuleIndications:A bdominal cramping Take 1 capsule (10 mg total) by mouth 4 (four) times a day if needed (abdominal pain or cramps). 30 capsule 04/09/2024 fluticasone propionate (FLONASE) 50 mcg/actuation nasal spray SPRAY 2 SPRAYS INTO EACH NOSTRIL EVERY DAY SHAKE GENTLY. CLEAN TIP AND REPLACE CAP AFTER USE. 16 mL 3 05/11/2024 hyoscyamine (ANASPAZ,LEVSIN) 0.125 mg tablet TAKE 1 TABLET (0.125 MG TOTAL) BY MOUTH EVERY 4 HOURS NEEDED FOR CRAMPING 180 tablet 06/08/2024 ibuprofen (ADVIL,MOTRIN) 600 mg tablet Take 1 tablet (600 mg total) by mouth. meloxicam (Mobic) 7.5 mg tablet Take 1 tablet (7.5 mg total) by mouth 1 (one) time each day. 30 each 06/15/2024 5 ondansetron (ZOFRAN) 4 mg tablet Take 1 tablet (4 mg total) by mouth every 8 (eight) hours if needed for nausea. 08/18/2023 ondansetron ODT (ZOFRAN-ODT) 4 mg disintegrating tablet Take 1 tablet (4 mg total) by mouth. 04/12/2024 predniSONE (DELTASONE) 20 mg tablet Take 3 Tablets by mouth daily for 3 days, THEN 2 Tablets daily for 3 days, THEN 1 Tablet daily for 3 days. SUMAtriptan (IMITREX) 50 mg tablet Take 1 tablet (50 mg total) by mouth 1 (one) time if needed for migraine. May repeat dose once in 2 hours if no relief. Do not exceed 2 doses in 24 hours. 27 tablet 3 06/27/2024 6 triamcinolone (KENALOG) 0.1 % ointment Apply topically 2 (two) times a day. For 2 weeks 30 g 2 05/11/2024 SUMAtriptan (IMITREX) 25 mg tablet Take 1 tablet (25 mg total) by mouth 1 (one) time if needed for migraine. May repeat dose once in 2 hours if no relief. Do not exceed 2 doses in 24 hours. 27 tablet 3 06/05/2024 documented as of this encounter Discharge Disposition Disposition Code Departure Means Destination Home or Self Care documented in this encounter Plan of Treatment Upcoming Encounters Date Type Department Care Team (Late st Contact Info) Description 07/11/2024 2:40 PM EDT Office Visit [facility] - [facility] [address] [place] [address] Yamilex Eagle NP [address] [place] [address] [place] [address] 07/13/2024 1:45 PM EDT Office Visit Obstetrics and Gynecology - [address] [phone] Sayda Sarmiento MD [address] [place] [phone] 07/26/2024 9:30 AM EDT Office Visit Orthopedic Surgery - [place] [address] [phone] Jad Ortega, DPGopi [address] [address] 03/22/2025 3:00 PM EST Office Visit Adult Medicine [place] - [address] [phone] Latesha France MD [address] [place] [address] documented as of this encounter Procedures Procedure Name Priority Date/Time Associated Diagnosis Comments MR BRAIN WO CONTRAST Routine 06/26/2024 2:39 PM EDT Other migraine without status migrainosus, not intractable documented in this encounter Results * MR Brain wo Contrast (06/26/2024 [...] Signed Date: 06/26/2024 15:46 ET Workstation ID: [id number] Transcribed By: Self Edit Transcribed Date: 06/26/2024 [...] the brain without contrast was performed utilizing thestandard departmental protocol. FINDINGS: There is a solitary [...] Signed Date: 06/26/2024 15:46 ET Workstation ID: [id number] Transcribed By: Self Edit Transcribed Date: 06/26/2024 15:27 ET us Latesha France MD IMG MRI PROCEDURES Final Re sult documented in this encounter Visit Diagnoses Diagnosis Other migraine without status migrainosus, not intractable documented in this encounter Care Teams Mortgage Broker Relationship Specialty Start Date End Date Latesha France MD [address] [place] [address] PCP - General Internal Medicine 02/13/24 documented as of this encounter
--- OUTSIDE RECORDS SUMMARY | 2024-07-02 15:50 | XMS_ITS | Encounter Summary ---
Author Organization [facility] Address [address] [place] [address] Care Team Providers Care Associate Store Director Name Role Phone Latesha France MD Primary Care Provider Reason for Visit * Reason Onset Date Comments Hypotension 03/19/2024 Encounter Details Date Type Department Care Team (Late st Contact Info) Description 03/19/2024 Nurse Triage Adult Medicine [facility] [address] [place] [phone] Latesha France MD [address] [place] [phone] Hypotension Social History Tobacco Use Types Packs/Day Years [...] Progress Notes * Giulia Torres RN - 03/19/2024 9:50 AM EST Pt. Has had diarrhea x 2 weeks/ no black stools , no abd. Pain but cramping intermittently , no n/v. She states she has diarrhea every time she eats and is having episodes of dizziness and feelings of passing out. No cp or sob but has generalized weakness and at present time does not have the lightheadedness or feeling clammy. She had racing heart last night but not now. Advised if unable to walk without feeling lightheaded or dizzy to call for ambulance . Pt. Is willing to go to the ER. But will have someone take her Reason for Disposition [1] Systolic BP < 90 AND [2] feeling weak or lightheaded (e.g., woozy, feeling like they might faint) Answer Assessment - Initial Assessment Questions 1. BLOOD PRESSURE: What is your blood pressure? Did you take at least two measurements 5 minutesapart? 83/59 taken yesterday at 2:14pm 2. ONSET: When did you take your blood pressure? Over last wek 3. HOW: How did you take your blood pressure? (e.g., visiting nurse, automatic home BP monitor) Automatic bp at home 4. HISTORY: Do you have a history of low blood pressure? What is your blood pressure normally? Yes low bp 5. MEDICINES: Are you taking any medicines for blood pressure? If Yes, ask: Have they been changed recently? no 6. PULSE RATE: Do you know what your pulse rate is? 84 No palpitations at present time, racing heart last night 7. OTHER SYMPTOMS: Have you been sick recently? Have you had a recent injury? Has had diarrhea after eating anything x 2 weeks, no black 8. : Is there any chance you are ? When was your last menstrual period? Last 03/16 Protocols used: Blood Pressure - Low-A- * Mindy Grant - 03/19/2024 9:27 AM EST Patient call requires triage: Symptoms patient is presenting: low BP 92/54. Feels like she will pass out How long has patient had these symptoms?: 03/15/24 For ALL patients calling to schedule any [...] traveled recently to another state outside of [place], [place], [place], [place], [place], [place], [place]? no o If yes, did you quarantine [...] of accident/Injury: No If yes, gather 3rd green party insurance information Third Republican Information: not applicable PCP: Latesha France MD Payor: [employer] PLAN / Plan: [employer] MEDICAID / Product Type: *No Product type* / documented in this encounter Plan of Treatment Upcoming Encounters Date Type Department Care Team (Late st Contact Info) Description 07/11/2024 2:40 PM EDT Office Visit [facility]iology [facility] - [facility] [address] [place] [address] Yamilex Eagle NP [address] [place] [address] 07/13/2024 1:45 PM EDT Office Visit Obstetrics and Gynecology [address] [phone] Sayda Sarmiento MD [address] [place] [address] 07/26/2024 9:30 AM EDT Office Visit Orthopedic Surgery - [place] [address] [facility] [address] [place] [phone] Jad Ortega DPM 175 [facility] [address] [place] [address] 03/22/2025 3:00 PM EST Office Visit Adult Medicine [facility] [address] [place] [address] Latesha France MD [address] [place] [address] documented as of this encounter Visit Diagnoses Not on filedocumented in this encounter Additional Health Concerns Infection Onset Date Last Indicated Resolved Time Respiratory Rule-Out 05/22/2024 05/22/2024 025 7:00 PM EST C. Diff Rule-Out Infection 05/23/2024 05/22/2024 0 05/23/2024 4:54 PM EST documented as of this encounter Care Teams Associate Store Director Relationship Specialty Start Date End Date Latesha France MD [address] [place] [address] PCP - General Internal Medicine 02/13/24 documented as of this encounter
--- OUTSIDE RECORDS SUMMARY | 2024-07-02 15:51 | XMS_ITS | Encounter Summary ---
Author Organization [facility] Address [address] [place] [address] Care Team Providers Care Library Page Name Role Phone Latesha France MD Primary Care Provider [phone] Reason for Referral * Consultation (Urgent) - Authorized Specialty Diagnoses / Procedures Referred By Contkamilla t Referred To Contact Physical Medicine and Rehabilitation Diagnoses Back pain, unspecified back location, unspecified back pain laterality, unspecified chronicity Latesha France MD [address] [place] [address] Phone: tel: fax: Antwan Rios MD [facility] [address] [place] [address] Phone: tel:[phone] Referral ID Status Reason Start Date Expiration Date Visits Requested Visits Authorized [id number] Authorized Specialty Services Required 05/30/2024 05/30/2025 1 1 Reason for Visit * Reason Onset Date Comments Back Pain 05/28/2024 Encounter Details Date Type Department Care Team ([facility] st Contact Info) Description 05/28/2024 Telephone Adult [place] [facility] [address] [place] [address] Rosy Springer MA Back Pain Social History Tobacco Use Types Packs/Day Years [...] PM EST documented as of this encounter Ordered Prescriptions Prescription Sig Dispense Quantity Refills Last Filled Start Date End Date diclofenac (VOLTAREN) 50 mg EC tablet Take 1 tablet (50 mg total) by mouth 2 (two) times a day if needed (pain). Do not crush, chew, or split. 28 tablet 1 05/30/2024 documented in this encounter Progress Notes * Ishmael Whaley MA - 05/30/2024 12:02 PM EST Patient was notified * Latesha France MD - 05/30/2024 10:55 AM EST Rx voltaren sent Referral to physiatry sent * Rosy Springer MA - 05/28/2024 3:14 PM EST Pt was seen 05/24/24. C/O back pain. Has been doing what was recommended- ibuprofen and heat w/ no relief. Wants to know what she should do next. Please advise. documented in this encounter Plan of Treatment Upcoming Encounters Date Type Department Care Team (Late st Contact Info) Description 07/11/2024 2:40 PM EDT Office Visit [facility] Cardiology [facility] [place] [address] Yamilex Eagle NP [address] [place] [address] [place] [address] 07/13/2024 1:45 PM EDT Office Visit Obstetrics and Gynecology - [address] [phone] Sayda Sarmiento MD [address] [place] [address] 07/26/2024 9:30 AM EDT Office Visit Orthopedic Surgery - [place] [address] [phone] Jad Ortega DPM [address] [address] 03/22/2025 3:00 PM EST Office Visit Adult Medicine [address] [phone] Latesha France MD [address] [place] [address] Scheduled Referrals Name Type Priority Associated Diagnoses Order Schedule Ambulatory referral to Physical Medicine Rehab Outpatient Referral Routine Back pain, unspecified back location, unspecified back pain laterality, unspecified chronicity 1 Occurrences starting 05/30/2024 until 05/30/2025 documented as of this encounter Visit Diagnoses Diagnosis Back pain, unspecified back location, unspecified back pain laterality, unspecified chronicity- Primary documented in this encounter Care Teams Library Page Relationship Specialty Start Date End Date Latesha France MD [address] [place] [address] PCP - General Internal Medicine 02/13/24 documented as of this encounter
--- OUTSIDE RECORDS SUMMARY | 2024-07-02 15:51 | XMS_ITS | Encounter Summary ---
Author Organization [facility] Address [address] [place] [address] Care Team Providers Care Electronic Design Engineer Name Role Phone Latesha France MD Primary Care Provider [phone] Reason for Visit * Reason Onset Date Comments Abdominal Pain 04/25/2024 Diarrhea 04/25/2024 Encounter Details Date Type Department Care Team (Late st Contact Info) Description 04/25/2024 Nurse Triage Adult Medicine [address] [phone] Latesha France MD [address] [place] [phone] Abdominal Pain; Diarrhea Social History Tobacco Use Types Packs/Day Years [...] Progress Notes * Giulia Torres RN - 04/25/2024 9:40 AM EST With cp and slight sob episode and continued lower abd. Pain I advised pt. Be evaluated in the ER. If she has weakness, return of cp or sob or severe abd. Pain to call for ambulance Pt. agrees Reason for Disposition [1] MILD-MODERATE pain AND [2] constant AND [3] present > 2 hours Answer Assessment - Initial Assessment Questions 1. LOCATION: Where does it hurt? Lower abd. area 2. RADIATION: Does the pain shoot anywhere else? (e.g., chest, back) 3. ONSET: When did the pain begin? (e.g., minutes, hours or days ago) 2 months again on Tuesday 4. SUDDEN: Gradual or sudden onset? Gradual for a couple months still persist 5. PATTERN Does the pain come and go, or is it constant? - If it comes and goes: How long does it last? Do you have pain now? (Note: Comes and goes means the pain is intermittent. It goes away completely between bouts.) - If constant: Is it getting better, staying the same, or getting worse? (Note: Constant means the pain never goes away completely; most serious pain is constant and gets worse.) Constant pain x 1 week 6. SEVERITY: How bad is the pain? (e.g., Scale 1-10; mild, moderate, or severe) - MILD (1-3): Doesn't interfere with normal activities, abdomen soft and not tender to touch. - MODERATE (4-7): Interferes with normal activities or awakens from sleep, abdomen tender to touch. - SEVERE (8-10): Excruciating pain, doubled over, unable to do any normal activities. moderate 7. RECURRENT SYMPTOM: Have you ever had this type of stomach pain before? If Yes, ask: When was the last time? and What happened that time? Yes 8. CAUSE: What do you think is causing the stomach pain? Doesn't know 9. RELIEVING/AGGRAVATING FACTORS: What makes it better or worse? (e.g., antacids, bending or twisting motion, bowel movement) No nothing makes it better or worse 10. OTHER SYMPTOMS: Do you have any other symptoms? (e.g., back pain, diarrhea, fever, urination pain, vomiting) pt. States this am had cp laying down lasted 10 minutes did feel slight sob his has since passed Diarrhea today x 1 no n/v yesterday had chills and felt warm forehead warm today but not hot 11. : Is there any chance you are ? When was your last menstrual period? 04/12 Protocols used: Abdominal Pain - Female-A-AH * Diana Chapa - 04/25/2024 9:04 AM EST Patient call requires triage: Symptoms patient is presenting: c/o abdominal pain w/diarrhea. Also states that her BP is 94/53 taken at 9am this morning How long has patient had these symptoms?: ongoing 4-5 months For ALL patients calling to schedule any [...] traveled recently to another state outside of [place], [place], [place], [place], [place], [place], [place]? no o If yes, did you quarantine [...] gather 3rd alliance party insurance information Third Alliance Party Information: not applicable PCP: Latesha France MD Payor: [employer] PLAN / Plan: [employer] MEDICAID / Product Type: *No Product type* / documented in this encounter Plan of Treatment Upcoming Encounters Date Type Department Care Team (Late st Contact Info) Description 07/11/2024 2:40 PM EDT Office Visit [facility] Cardiology [facility] [address] [place] [address] [address] [place] [address] Yamilex Eagle NP [address] [place] [address] [place] [address] 07/13/2024 1:45 PM EDT Office Visit Obstetrics and Gynecology [facility] [place] [place] [address] [place] [address] Sayda Sarmiento MD [address] [place] [address] 07/26/2024 9:30 AM EDT Office Visit Orthopedic Surgery - [place] [address] [phone] Jad Ortega DPM [address] [address] 03/22/2025 3:00 PM EST Office Visit Adult Medicine [place] - [address] [phone] Latesha France MD [address] [place], [place] documented as of this encounter Visit Diagnoses Not on filedocumented in this encounter Additional Health Concerns Infection Onset Date Last Indicated Resolved Time Respiratory Rule-Out 05/22/2024 05/22/2024 025 7:00 PM EST C. Diff Rule-Out Infection 05/23/2024 05/22/2024 0 05/23/2024 4:54 PM EST documented as of this encounter Care Teams Electronic Design Engineer Relationship Specialty Start Date End Date Latesha France MD [address] [place], [place] PCP - General Internal Medicine 02/13/24 documented as of this encounter
[2024-07-03 10:57] LABS: Lyme Abs Screen <0.90 index
== END 2024-07-02 13:17 | disposition home or self-care (01) ==
LOC: HO.LAB 13:16
PROVIDERS: PCP Internal Medicine; Visit Provider Psychiatry & Neurology Neurology
DX: G43.909 Migraine, unspecified, not intractable, without status migrainosus (principal)
CPT/HCPCS: 36415; 85652; 86617; 86618

== ENCOUNTER 2024-08-15 16:14 | Emergency (ER) | payer OTHER, SELFPAY ==
--- NOTE | 2024-08-15 16:22 | ED_ITS ---
HPI - Seizure General Chief Complaint: Seizure Stated Complaint: Sz 30 min [facility] [employer], 5mg IM versed Time Seen by Provider: 08/15/24 16:22 Source: EMS and old records reviewed Mode of arrival: EMS Limitations: altered mental status History of Present Illness ED Provider: HPI Narrative: 24-year-old female with history of anxiety, seen in the past for anxiety and psychogenic nonepileptic seizures, today started having episodes of shaking no tonic or clonic activity according to EMS report, called physician's office they were told to wait it out for 30 minutes and if not better to call ambulance to come to the ER , EMS reports that patient was shaking not having any tonic- clonic activity and she was given 5 mg of intramuscular Versed, she was not hypoglycemic vital signs were stable. When she presented to emergency department patient was a limited historian due to being sedated with Versed. Additional information we will obtain from boyfriend. EMS reported that she was diagnosed with a seizure disorder recently and has been prescribed medications did not able to recall whether it is but has not been able to pick it up yet. Related Data Previous Rx's ?Medication ?Instructions ?Recorded ondansetron 4 mg disintegrating 4 mg PO Q8H 3 days #9 tabs 06/18/23 tablet cnmzrjbgoi-dpqnyrrxckmyw-jaucvfwx 1 cap PO TID PRN pain #14 caps 06/19/23 50 mg-300 mg-40 mg capsule (Fioricet) ketorolac 10 mg tablet 10 mg PO Q8H PRN pain #10 tabs 06/19/23 benzonatate 150 mg capsule 150 mg PO TID PRN cough #14 caps 09/27/23 hdskoilsxw-gqdptakkcjtsw-ovujwtid 1 tab PO Q6H PRN haeadace #20 tabs 10/10/23 50 mg-325 mg-40 mg tablet Allergies Allergy/AdvReac Type Severity Reaction Status Date / Time No Known Allergies Allergy Verified 08/15/24 16:30 Review of Systems 2 Constitutional: Constitutional: Reports as per [facility] Past Medical History Medical History (Updated 08/15/24 @ 18:02 by Jose Romo DO) Anxiety Migraine Social History Social History Advance Directives: No Advance Directives Information Provided: No Physical Exam 2 Vital Signs: Vital Signs: Last Vital Signs Temp 97.6 F 08/15/24 18:19 Pulse 71 08/15/24 18:19 Resp 13 08/15/24 18:19 BP 102/61 08/15/24 18:19 Pulse Ox 100 08/15/24 18:19 O2 Del Method Room Air 08/15/24 18:19 BMI result Body Mass Index 20.1 Const: Other: Young appearing woman appears of stated age No facial trauma, no scalp trauma Pupils are 3 mm and reactive bilaterally, no nystagmus noted With some prompting she will open her mouth and there is no trauma to the mouth Supple neck Cardiopulmonary examination unremarkable lung sounds are clear no wheezing or rales no stridor, S1-S2 RRR Abdomen nondistended bowel sounds present Currently she is sedated, so not following commands much Medications Administered Discontinued Medications Generic Name Dose Route Start Last Admin Trade Name Freq PRN Reason Stop Dose Admin Phenobarbital 30 mg 08/15/24 17:58 08/15/24 18:09 Phenobarbital 30 Mg Tablet PO 08/15/24 17:59 30 mg ONCE ONE Administration Medical Decision Making Medical Decision Making [facility] Narrative: 16:37 when patient presented to the emergency department my consideration from listening to history by EMS in evaluating the patient is that she has unlikely had grand mal seizure or seizure activity, the 30 minute of shaking at home is more consistent with psychogenic nonepileptic seizures and afterwards I took a look at her records and she has been seen here with anxiety and another physician evaluation around the same time with considerations for nonepileptic seizure, without said I will workup for ACS, dysrhythmia, electrolyte derangements and other considerations as below, I did not feel that she requires further imaging such as CT of the brain. They also reported that she was diagnosed with a seizure disorder I would like to look at that report I will have to find out from her boyfriend and I am not sure what medications she did not pick up attendant. 18:00 at this point patient is wide awake, her boyfriend told me that she was supposed to start phenobarbital 30 mg we will give her that 1st dose now, it is not unlikely that she has been treated with epilepsy for this this is an older medication and has antiepileptic but also mood stabilizing effects, so she started taking that and follow up with her provider. Her boyfriend's friend states patient less of anxiety, there are no SI HI reported Differential Diagnosis Status epilepticus, focal seizure, grand mal seizure, nonepileptic seizure, hypoglycemia, electrolyte derangements, substance use disorder Lab Data 08/15/24 16:48 08/15/24 16:48 Labs: Lab Results 08/15/24 08/15/24 Range/Units 16:48 17:58 WBC 7.4 (4.8-10.8) X10*3/uL RBC 4.11 L (4.20-5.50) X10*6/uL Hgb 12.6 (12.0-16.0) g/dl Hct 35.5 L (37.0-47.0) % MCV 86.4 (80.0-98.0) fL MCH 30.7 (27.0-33.0) pg MCHC 35.5 H (31.0-35.0) g/dl RDW 12.2 (11.0-16.0) % Plt Count 272 (160-400) X10*3/uL MPV 10.2 (9.4-12.3) fL Immature Gran % (Auto) 0.3 (0.0-0.4) % Neut % (Auto) 75.2 H (45-73) % Lymph % (Auto) 16.6 L (20-40) % Nye % (Auto) 5.7 (2-11) % Eos % (Auto) 1.9 (0-4) % Baso % (Auto) 0.3 (0-2) % Lymph # (Auto) 1.2 (1.2-4.9) X10*3/uL Nye # (Auto) 0.4 (0.1-1.2) X10*3/uL Eos # (Auto) 0.1 (0.0-0.4) X10*3/uL Baso # (Auto) 0.0 (0.0-0.2) X10*3/uL Abs Immat Gran (auto) 0.02 (0.00-0.03) X10*3/uL Absolute Neuts (auto) 5.6 (2.0-8.3) x10*3/uL Absolute Nucleated RBC 0.000 (0.0-0.012) X10*3/uL Nucleated RBC % (auto) 0.0 (0.0-0.2) /100WBC Sodium 140 (135-145) mmol/L Potassium 3.8 (3.3-5.1) mmol/L Chloride 111 H (96-108) mmol/L Carbon Dioxide 22 (22-29) mmol/L Anion Gap 11 L (12-20) BUN 12 (9-16) mg/dL Creatinine 0.61 (0.5-1.4) mg/dL Estim Creat Clear Calc 116.8 Estimated GFR > 60 Random Glucose 86 (60-115) mg/dL Lactic Acid 1.5 (0.5-2.0) mmol/L Calcium 9.5 (8.4-10.2) mg/dL Magnesium 1.9 (1.6-2.6) mg/dL Total Bilirubin 0.3 (0.0-1.0) mg/dL AST 18 (5-31) U/L ALT 13 (0-31) U/L Alkaline Phosphatase 48 (39-117) U/L Total Creatine Kinase 51 (26-140) U/L Total Protein 7.3 (6.5-8.0) g/dL Albumin 4.6 (3.5-5.0) g/dL Lipase 19 (8-78) U/L Urine Opiates Screen Not Detected (Not Detect) Ur Buprenorphine Scrn Not Detected (Not Detect) ng/mL Ur Oxycodone Screen Not Detected (Not Detect) ng/mL Urine Methadone Screen Not Detected (Not Detect) ng/mL Urine Fentanyl Screen Not Detected (Not Detect) Ur Barbiturates Screen Not Detected (Not Detect) Ur Phencyclidine Scrn Not Detected (Not Detect) Ur Amphetamines Screen Not Detected (Not Detect) U Benzodiazepines Scrn POSITIVE H (Not Detect) Urine Cocaine Screen Not Detected (Not Detect) U Marijuana (THC) Screen Not Detected (Not Detect) Discharge Plan Discharge Clinical Impression: Psychogenic nonepileptic seizure Patient Disposition: Home, Self-Care Additional Instructions: You were given 30 mg of phenobarbital, it is an old antiepileptic medication that also has mood stabilizing properties and likely the reason why it was provided for your, your presentation is not consistent with an actual seizure but more with what is called psychogenic nonepileptic seizure which is the way I will bodies sometimes deal with stress, fallen up with your provider that prescribes phenobarbital is very important, the rest of workup physical exam has been reassuring, you did receive Versed medication, I would urge against repeat benzodiazepines as your young and will likely have this for some time and benzodiazepine is addictive Prescriptions: No Action ondansetron 4 mg tablet,disintegrating 4 mg PO Q8H 3 Days Qty: 9 0RF avnqslczsd-swchnlcuqbqha-kdeh [Fioricet] 50-300-40 mg capsule 1 cap PO TID PRN (Reason: pain) Qty: 14 0RF ketorolac 10 mg tablet 10 mg PO Q8H PRN (Reason: pain) Qty: 10 0RF Rx Instructions: Do not use NSAIDs with this medication benzonatate 150 mg capsule 150 mg PO TID PRN (Reason: cough) Qty: 14 0RF sgmtmtuzyz-jwmbkprlblvlw-ufux 50-325-40 mg tablet 1 tab PO Q6H PRN (Reason: haeadace) Qty: 20 0RF Stand Alone Forms: Work/School Release Print Language: Japanese
[2024-08-15 16:27] VITALS: BP 110/67; PULSE 76; RESP 16; TEMP 36.9; O2SAT 98; BMI 20.1
--- NOTE | 2024-08-15 16:32 | ECG_ITS ---
Test Reason : seizure Blood Pressure : */* mmHG Vent. Rate : 81 BPM Atrial Rate : 81 BPM P-R Int : 110 ms QRS Dur : 72 ms QT Int : 338 ms P-R-T Axes : 41 43 57 degrees QTcB Int : 392 ms Sinus rhythm with short TX Otherwise normal ECG When compared with ECG of 12-Oct-2023 09:18, No significant change was found Referred By: Jose Romo Electronically Signed By: Clark Coy
--- OUTSIDE RECORDS SUMMARY | 2024-08-15 16:46 | XMS_ITS | Encounter Summary ---
Author Organization [facility] Address [address] [place] [address] Care Team Providers Care Pediatric Speech Language Pathologist Name Role Phone Latesha France MD Primary Care Provider Reason for Visit * Reason Onset Date Comments Med Refill 01/25/2024 Disregard put in to system in older [facility] for refill Encounter Details Date Type Department Care Team (Late Contact Info) Description 01/25/2024 [place] [facility] [address] [phone] Latesha France MD [address] [place] [address] [id number] Med Refill (Disregard put into system in older [facility] for refill) Social History Tobacco Use Types [...] Upcoming Encounters Date Type Department Care Team ([facility] Contact Info) Description 08/17/2024 1:00 PM EDT Office Visit Obstetrics and Gynecology - [address] [phone] Sally Kinney, CHIARA [address] [place], [place] 08/17/2024 2:30 PM EDT Office Visit [address] [phone] Latesha France MD [address] [place] [address] 08/27/2024 1:40 PM EDT Office Visit [facility] [address] [place] [address] [place] [address] Yamilex Eagle NP [address] [place] [address] [place] [address] 03/22/2025 3:00 PM EST Office Visit [address] [phone] Latesha France MD [address] [place] [address] documented as of this encounter Visit Diagnoses Not on filedocumented in this encounter Additional Health Concerns Infection Onset Date Last Indicated Resolved Time Respiratory Rule-Out 05/22/2024 05/22/2024 025 7:00 PM EST C. Diff Rule-Out Infection 05/23/2024 05/22/2024 0 05/23/2024 4:54 PM EST documented as of this encounter Care Teams Pediatric Speech Language Pathologist Relationship Specialty Start Date End Date Latesha France MD [address] [place], [place] [address], [place] PCP - General Internal Medicine 02/13/24 documented as of this encounter
--- OUTSIDE RECORDS SUMMARY | 2024-08-15 16:46 | XMS_ITS | Encounter Summary ---
Author Organization [facility] Address [address] [place] [address] Care Team Providers Care Gravel Screener Name Role Phone Latesha France MD Primary Care Provider Reason for Visit * Reason Onset Date Comments Hypotension 03/19/2024 Encounter Details Date Type Department Care Team (Late st Contact Info) Description 03/19/2024 Nurse Triage Adult Medicine [address] [phone] Latesha France MD [address] [place] [phone] Hypotension Social History Tobacco Use Types Packs/Day [...] traveled recently to another state outside of [place], [place], [place], [place], [place], [place], [place]? no o If yes, did you [...] of accident/Injury: No If yes, gather 3rd libertarian insurance information Third Green Party Information: not applicable PCP: Latesha France MD Payor: [employer] / Plan: [employer] / Product Type: *No Product type* / documented in this encounter Plan of Treatment Upcoming Encounters Date Type Department Care Team (Late st Contact Info) Description 08/17/2024 1:00 PM EDT Office Visit Obstetrics and Gynecology - [address] [phone] Sally Kinney CNM [address] [place] [address] 08/17/2024 2:30 PM EDT Office Visit Adult Medicine [place] - [address] [phone] Latesha France MD [address] [place] [address] 08/27/2024 1:40 PM EDT Office Visit [facility] [place] [address] Yamilex Eagle NP [address] [place] [address] [place] [address] 03/22/2025 3:00 PM EST Office Visit Adult Medicine [facility] [address] [place] [address] Latesha France MD [address] [facility] [place] [phone] documented as of this encounter Visit Diagnoses Not on filedocumented in this encounter Additional Health Concerns Infection Onset Date Last Indicated Resolved Time Respiratory Rule-Out 05/22/2024 05/22/2024 025 7:00 PM EST C. Diff Rule-Out Infection 05/23/2024 05/22/2024 0 05/23/2024 4:54 PM EST documented as of this encounter Care Teams Gravel Screener Relationship Specialty Start Date End Date Latesha France MD [address] [facility] [place] [address] PCP - General Internal Medicine 02/13/24 documented as of this encounter
--- OUTSIDE RECORDS SUMMARY | 2024-08-15 16:46 | XMS_ITS | Clinical Summary ---
Author Organization [facility] [address] [facility] lding Address [address] [place] [address] Phone Care Team Providers Care Afloat Cryptologic Manager Name Role Phone Latesha France MD Primary Care Provider Allergies No known active allergies Medications butalbital-acetam inophen-caffeine (FIORICET, ESGIC) 50-325-40 mg per tablet Take 1 tablet by mouth every 6 (six) hours if needed for headaches. 024 Active fluticasone propionate (FLONASE) 50 mcg/actuation nasal spray SPRAY 2 SPRAYS INTO EACH NOSTRIL EVERY DAY SHAKE GENTLY. CLEAN TIP AND REPLACE CAP AFTER USE. 16 mL 3 025 Active triamcinolone (KENALOG) 0.1 % ointment Apply topically 2 (two) times a day. For 2 weeks 30 g 2 025 Active hyoscyamine (ANASPAZ,LEVSIN) 0.125 mg tablet TAKE 1 TABLET (0.125 MG TOTAL) BY MOUTH EVERY 4 HOURS NEEDED FOR CRAMPING 180 tablet 025 Active SUMAtriptan (IMITREX) 50 mg tablet Take 1 tablet (50 mg total) by mouth 1 (one) time if needed for migraine. May repeat dose once in 2 hours if no relief. Do not exceed 2 doses in 24 hours. 27 tablet 3 025 2025 Active sodium chloride (OCEAN) 0.65 % nasal spray Administer 1 spray into each nostril if needed for congestion. 15 mL 5 025 2025 Active benzoyl peroxide (Acne Medication) 2.5 % gel Apply 1 g topically 2 times daily as needed (acne). 30 g 4 025 Active ondansetron ODT (ZOFRAN-ODT) 4 mg disintegrating tablet Take 1 tablet (4 mg total) by mouth every 8 (eight) hours if needed for nausea or vomiting. 20 tablet Active magnesium oxide (MAG-OX) 400 mg (241.3 elemental magnesium) tablet Take 1 tablet (400 mg total) by mouth 1 (one) time each day. 90 tablet 025 Active naproxen (NAPROSYN) 500 mg tablet Take 1 tablet (500 mg total) by mouth 2 (two) times a day if needed for mild pain (pain). 60 tablet 5 025 2025 Active predniSONE (DELTASONE) 20 mg tablet Take 3 Tablets by mouth daily for 3 days, THEN 2 Tablets daily for 3 days, THEN 1 Tablet daily for 3 days. 2024 Discontinued(T herapy completed) ondansetron (ZOFRAN) 4 mg tablet Take 1 tablet (4 mg total) by mouth every 8 (eight) hours if needed for nausea. 024 2024 Discontinued(T herapy completed) adapalene (DIFFERIN) 0.1 % gel Apply 1 g topically at bedtime as needed (acne). 024 2024 clindamycin phosphate 1 % gel, once daily APPLY TO AFFECTED AREA TWICE A DAY 023 2024 Discontinued(T herapy completed) ibuprofen (ADVIL,MOTRIN) 600 mg tablet Take 1 tablet (600 mg total) by mouth. 2024 Discontinued dicyclomine (BENTYL) 10 mg capsuleIndication s:Abdominal cramping Take 1 capsule (10 mg total) by mouth 4 (four) times a day if needed (abdominal pain or cramps). 30 capsule 025 2024 Discontinued(T herapy completed) ondansetron ODT (ZOFRAN-ODT) 4 mg disintegrating tablet Take 1 tablet (4 mg total) by mouth. 025 2024 Discontinued(R eorder) diclofenac (VOLTAREN) 50 mg EC tablet Take 1 tablet (50 mg total) by mouth 2 (two) times a day if needed (pain). Do not crush, chew, or split. 28 tablet 1 025 2024 Discontinued(T herapy completed) benzoyl peroxide (Acne Medication) 2.5 % gel Apply topically 2 (two) times a day. Apply 1 g topically 2 times daily as needed (acne). 30 g 025 2024 Discontinued(R eorder) cyclobenzaprine (FLEXERIL) 5 mg tablet Take 1 tablet (5 mg total) by mouth at bedtime as needed for muscle spasms (low back pain). 30 tablet 025 2024 Discontinued magnesium oxide (MAG-OX) 400 mg magnesium tablet Take 1 tablet (400 mg total) by mouth 2 (two) times a day for 4 doses. 4 tablet 025 2024 benzoyl peroxide (Acne Medication) 2.5 % gel Apply 1 g topically 2 times daily as needed (acne). 30 g 4 025 2024 Discontinued(R eorder) magnesium oxide (MAG-OX) 400 mg (241.3 elemental magnesium) tablet TAKE 1 TABLET (400 MG TOTAL) BY MOUTH 2 (TWO) TIMES A DAY FOR 4 DOSES. 2024 Discontinued(R eorder) Active Problems Problem Noted Date Diagnosed Date Hypoglycemia 07/24/2024 Pain in both lower extremities 07/24/2024 Abdominal discomfort 07/24/2024 Tinnitus of right ear 07/24/2024 Chest pain 07/24/2024 White matter abnormality on MRI of brain Weakness of both lower extremities 07/19/2024 Low bicarbonate 07/19/2024 Atherosclerosis of artery of both lower extremities (CMS/HCC V24) 07/19/2024 Engages in vaping 07/19/2024 Cannabis use disorder 07/19/2024 Nasal congestion 07/19/2024 Hypotension 01/04/2024 Menorrhagia with regular cycle 01/04/2024 Assessment & Plan (07/13/2024 2:00 PM EDT): Explained sometimes periods can be heavier for 1-2 cycles and return to normal. I recommended we get some labs to ensure not anemic and also an US to ensure no intracavitary pathology. Will discuss results when available and she will return if periods persist this way. PTSD (post-traumatic stress disorder) 01/04/2024 Sinus tachycardia 01/04/2024 Syncope 10/18/2023 Psychogenic nonepileptic seizure 10/18/2023 Migraine without status migrainosus, not intract able 10/18/2023 Vasovagal syncope 04/08/2021 Moderate intellectual disabilities 04/08/2021 Encounters Date Type Department Care Team Description 08/13/2024 Telephone Obstetrics and Gynecology [address] [phone] Sayda Sarmiento MD painful menses 08/13/2024 Telephone Adult Medicine [address] [phone] Latesha France MD Heavy period 08/10/2024 Nurse Triage [address] [phone] Delfino Berkowitz NP 08/06/2024 2:30 PM EDT Office Visit Adult [address] [phone] Delfino Berkowitz NP Psychogenic nonepileptic seizure (Primary Dx); Other migraine without status migrainosus, not intractable; Pain in both lower extremities; Sleep disturbance; Hypomagnesemia; Encounter for examination following treatment at hospital 08/03/2024 7:00 AM EDT Ancillary Procedure [facility] [address] [facility] [address] [place] [phone] Vasovagal syncope 07/31/2024 Telephone Adult [address] [phone] Latesha France MD [facility] Follow-up 07/26/[address] [phone] Latesha France MD Extremity Weakness; Seizures (Minor symptoms, possibly); Abdominal Cramping; Dizziness 07/24/2024 2:05 PM EDT - 07/24/2024 11:59 PM EDT Hospital Encounter Radiology Department [address] [phone] Menorrhagia with regular cycle Discharge Disposition: Home or Self Care 07/24/2024 1:12 PM EDT - 07/24/2024 11:59 PM EDT Hospital Encounter [address] [phone] Abdominal discomfort Discharge Disposition: Home or Self Care 07/24/2024 1:11 PM EDT - 07/24/2024 11:59 PM EDT Hospital Encounter [address] [phone] Pain in both lower extremities Discharge Disposition: Home or Self Care 07/24/2024 12:30 PM EDT Office Visit [address] [phone] Latesha Fracne MD Psychogenic nonepileptic seizure (Primary Dx); Chest pain, unspecified type; Tinnitus of right ear; Abdominal discomfort; Pain in both lower extremities; Hypoglycemia; Anxiety and depression 07/24/2024 Nurse Triage [address] [phone] Latesha France MD 07/23/[address] [phone] Tayler Mandujano MA [facility] Follow-up 07/19/2024 1:00 PM EDT Office Visit [address] [phone] Latesha France MD White matter abnormality on MRI of brain (Primary Dx); Weakness of both lower extremities; Syncope, unspecified syncope type; Atherosclerosis of artery of both lower extremities (CMS/HCC V24); Other migraine without status migrainosus, not intractable; Low bicarbonate; Cannabis use disorder; Engages in vaping; Nasal congestion; Snoring; Hypoglycemia 07/13/2024 1:45 PM EDT Office Visit Obstetrics and Gynecology - [address] [phone] Sayda Sarmiento MD Menorrhagia with regular cycle (Primary Dx) 07/12/2024 Telephone [facility] [address] [place] [address] Maria Eugenia Mccartney MD Loss of Consciousness (Vasovagal Syncope); [id number] (ok to book); ROCT Enrollment (Enrolling patient for 30 day ROCT) 07/12/2024 Telephone Adult Medicine [address] [phone] Latesha France MD Hospitalization/ER 07/11/2024 2:40 PM EDT Office Visit [facility] [address] [place] [address] Yamilex Eagle NP Vasovagal syncope (Primary Dx); Borderline blood pressure 07/11/2024 Telephone Adult Medicine [address] [phone] Latesha France MD Migraine 06/26/2024 1:38 PM EDT - 06/26/2024 11:59 PM EDT Hospital Encounter Radiology Department - [address] [phone] Other migraine without status migrainosus, not intractable Discharge Disposition: Home or Self Care 06/21/2024 Telephone Obstetrics and Gynecology [address] [phone] Kinney, Sally, CNM Menstrual Problem 06/19/2024 8:27 AM EDT - 06/19/2024 11:59 PM EDT Hospital Encounter [address] [phone] Acute right-sided low back pain without sciatica Discharge Disposition: Home or Self Care 06/19/2024 8:00 AM EDT Office Visit Adult [address] [phone] Latesha France MD Acute right-sided low back pain without sciatica (Primary Dx); Other migraine without status migrainosus, not intractable; Allergy history, drug 06/18/2024 Nurse Triage [address] [phone] Latesha France MD 06/18/[address] [phone] Tayler Mandujano MA Referral 06/15/[address] [phone] Latesha France MD Back Pain; Migraine 06/13/2024 Telephone Orthopedic Surgery [facility] [address] [phone] Jad Ortega DPM 06/08/2024 10:45 AM EDT Consult Orthopedic [facility] [address] [phone] Jad Ortega DPM Right foot pain (Primary Dx); Capsulitis of right foot; Lumbosacral radiculopathy 06/01/2024 Telephone Adult Medicine [address] [phone] Latesha France MD Back Pain; Migraine; Abdominal Pain 05/29/2024 12:45 PM EST - 05/29/2024 11:59 PM EST Hospital Encounter [facility] Xray [address] [place] [phone] Syncope and collapse Discharge Disposition: Home or Self Care 05/28/2024 Telephone Adult Medicine [address] [phone] Rosy Springer MA Back Pain 05/24/2024 12:02 PM EST - 05/24/2024 11:59 PM EST Hospital Encounter [address] [phone] Upper back pain Discharge Disposition: Home or Self Care 05/24/2024 12:01 PM EST - 05/24/2024 11:59 PM EST Hospital Encounter [address] [phone] Right foot pain Discharge Disposition: Home or Self Care 05/24/2024 11:30 AM EST Office Visit Adult [address] [phone] Latesha France MD Dizziness (Primary Dx); Idiopathic pyuria; Upper back pain; Right foot pain 05/22/2024 4:50 PM EST - 05/22/2024 7:51 PM EST Emergency [facility] Emergency [address] [place] [phone] Jose Romo MD Lightheadedness (Primary Dx) Discharge Disposition: Home or Self Care 05/22/2024 Telephone Adult Medicine [address] [phone] Tayler Mandujano MA from Last 3 Months Immunizations Name Administration [...] Sign Reading Time Taken Comments Blood Pressure 90/64 08/06/2024 2:35 PM EDT Pulse 93 08/06/2024 2:35 PM EDT Temperature 35.8 ??C (96.4 ??F) 08/06/2024 2:35 PM ED T Respiratory Rate 16 08/06/2024 2:35 PM EDT Oxygen Saturation 99% 08/06/2024 2:35 PM EDT Inhaled Oxygen Concentration - - Weight 48.8 kg (107 lb 9.6 oz) 08/06/2024 2:35 P M EDT Height 149.9 cm (4' 11 ) 08/06/2024 2:35 PM EDT Body Mass Index 21.73 08/06/2024 2:35 PM EDT Plan of Treatment Upcoming Encounters Date Type Department Care Team (Late st Contact Info) Description 08/17/2024 1:00 PM EDT Office Visit Obstetrics and Gynecology [address] [phone] Sally Kinney CNM [address] [place] [phone] 08/17/2024 2:30 PM EDT Office Visit Adult Medicine [address] [phone] Latesha France MD [address] [facility] [place], [place] 08/27/2024 1:40 PM EDT Office Visit [facility] [place] [phone] Yamilex Eagle, LEANA [address] [place] [address] [place] [address] 03/22/2025 3:00 PM EST Office Visit Adult [address] [phone] Latesha France MD [address] [place] [address] Health Maintenance Due Date Last Done Comments [...] 08/30/2023, 08/30/2023, 08/30/2023 Cholesterol Screening (Lipid Panel) 07/19/2029 07/19/2024, 04/07/2023 DTaP,Tdap,and Td Vaccines (2 - Td [...] Procedure Name Priority Date/Time Associated Diagnosis Comments MAGNESIUM Routine 08/06/2024 3:38 PM EDT Encounter for examination following treatment at hospital Hypomagnesemia US PELVIS NON OB COMPLETE W TRANSVAGINAL Routine 07/24/2024 3:30 PM EDT Menorrhagia with regular cycle BASIC METABOLIC PANEL Routine 07/24/2024 2:03 PM EDT Hypoglycemia INSULIN, TOTAL Routine 07/24/2024 2:03 PM EDT Hypoglycemia C-PEPTIDE Routine 07/24/2024 2:03 PM EDT Hypoglycemia MAGNESIUM Routine 07/24/2024 2:03 PM EDT Psychogenic nonepileptic seizure PHOSPHORUS Routine 07/24/2024 2:03 PM EDT Psychogenic nonepileptic seizure XR ABDOMEN 2 VIEWS W CHEST 1 VIEW Routine 07/24/2024 1:36 PM EDT Abdominal discomfort XR TIBIA FIBULA 2 VIEWS BILAT Routine 07/24/2024 1:36 PM EDT Pain in both lower extremities COMPREHENSIVE METABOLIC PANEL Routine 07/19/2024 1:38 PM EDT Syncope, unspecified syncope type Low bicarbonate LIPID PANEL WITH REFLEX TO DIRECT LDL Routine 07/19/2024 1:38 PM EDT Atherosclerosis of artery of both lower extremities (CMS/HCC V24) CREATINE KINASE Routine 07/19/2024 1:38 PM EDT Weakness of both lower extremities Syncope, unspecified syncope type CBC WITH AUTO DIFFERENTIAL Routine 07/13/2024 2:08 PM EDT Menorrhagia with regular cycle CBC AND DIFFERENTIAL Routine 07/13/2024 2:08 PM EDT Menorrhagia with regular cycle THYROID STIMULATING HORMONE WITH REFLEX TO FREE T4 AND FREE T3 Routine 07/13/2024 2:08 PM EDT Menorrhagia with regular cycle MR BRAIN WO CONTRAST Routine 06/26/2024 2:39 [...] pain XR FOOT 3+ VIEWS RIGHT Routine 05/24/2024 12:16 PM EST Right foot pain EXTERNAL XRAY REPORT 05/24/2024 EXTERNAL XRAY REPORT 05/24/2024 ECG ANNOTATED 05/23/2024 ECG 12-LEAD STAT 05/22/2024 6:00 PM EST [id number], RSV, FLU A AND B QUALITATIVE RT-PCR, INTERNAL LAB STAT 05/22/2024 5:42 PM EST ROMAN URINE CULTURE TUBE STAT 05/22/2024 3:46 PM EST URINALYSIS WITH REFLEX MICROSCOPIC AND CULTURE STAT 05/22/2024 3:46 PM EST HCG QUALITATIVE, URINE STAT 05/22/2024 3:46 PM EST URINALYSIS WITH [...] AM EST Leukopenia, unspecified type Frequent stools CHLAMYDIA TRACHOMATIS AND NEISSERIA GONORRHOEAE PCR Routine 04/30/2024 10:52 AM EST Menorrhagia with regular cycle Crampy pain associated with menses HPV Routine 08/30/2023 DEPRESSION SCREENING Routine 07/29/2023 from Last 3 Months or Most Recently Relevant to Health Maintenance Results * Magnesium (08/06/2024 3:38 PM EDT) Only the most recent of2 resultswithin the time period is included. Magnesium 2.1 1.9 - 2.6 mg/dL LAB CHEMISTRY METHOD 08/06/2024 6:21 PM EDT [facility] Blood Venous blood specimen / Unknown Venipuncture / Unknown 08/06/2024 3:38 PM EDT 08/06/2024 3:38 PM EDT us Delfino Berkowitz CONTAINER COORDINATOR LAB BLOOD ORDERABLES Final R esult [facility] [address] [place] [address], [place] [phone] * US Pelvis Non OB Complete w Transvaginal (07/24/2024 3:30 PM EDT) Anatomical Region Laterality Modality Body, Pelvis Ultrasound 07/24/2024 4:05 PM EDT Narrative 07/24/2024 4:07 PM EDT Pelvic ultrasound. History pelvic pain. Comparison with previous studies, latest from 11/17/2023. Examination was performed transabdominally . Patient declined transvaginal examination. Color Doppler ultrasound and duplex analysis of the ovaries was performed. Uterus was visualized was normal size and echogenicity measuring 7.4 x 2.9 x 4.5 cm. Endometrium measures 3 mm. Both ovaries were visualized was normal size and echogenicity. Right ovary volume is 7.3 cc. Left ovary volume is 15.7 cc. Normal arterial and venous flow was documented in the right ovary. Normal arterial flow was documented in the left ovary. CONCLUSIONS: Unremarkable pelvic ultrasound. -------- FINAL REPORT -------- Dictated By: Maura Barrios Dictated Date: 07/24/2024 16:05 ET Assigned Physician: Maura Barrios Reviewed and Electronically Signed By: Maura Barrios Signed Date: 07/24/2024 16:07 ET Workstation ID: [id number] Transcribed By: Self Edit Transcribed Date: 07/24/2024 16:05 ET Procedure Note Maura Barrios MD - 07/24/2024 Pelvic ultrasound. History pelvic pain. Comparison with previous studies, latest from 11/17/2023. Examination was performed transabdominally . Patient declined transvaginalexamination. Color Doppler ultrasound and duplex analysis of the ovarieswas performed. Uterus was visualized was normal size and echogenicity measuring 7.4 x 2.9x 4.5 cm. Endometrium measures 3 mm. Both ovaries were visualized wasnormal size and echogenicity. Right ovary volume is 7.3 cc. Left ovaryvolume is 15.7 cc. Normal arterial and venous flow was documented in theright ovary. Normal arterial flow was documented in the left ovary. CONCLUSIONS: Unremarkable pelvic ultrasound. -------- FINAL REPORT -------- Dictated By: Maura Barrios Dictated Date: 07/24/2024 16:05 ET Assigned Physician: Maura Barrios Reviewed and Electronically Signed By: Maura Barrios Signed Date: 07/24/2024 16:07 ET Workstation ID: [id number] Transcribed By: Self Edit Transcribed Date: 07/24/2024 16:05 ET us Sayda Sarmiento MD IMG US PROCEDURES Final Res ult * Insulin, total (07/24/2024 2:03 PM EDT) Insulin 10.2 3.0 - 25.0 mcIU/mL LAB CHEMISTRY METHOD 07/24/2024 6:57 PM EDT [facility] Blood Venous blood specimen / Unknown Venipuncture / Unknown 07/24/2024 2:03 PM EDT 07/24/2024 2:03 PM EDT Narrative [facility] - 07/24/2024 6:57 PM EDT Insulin reference range based on fasting status. ??Insulin values vary in non- fasting individuals. Latesha France MD LAB BLOOD ORDERABLES Final Result Performing Organization Address [facility]/ZIP Co de Phone Number [facility] [address] [place] [address], [place] [phone] * C-peptide (07/24/2024 2:03 PM EDT) C-Peptide 1.78 0.80 - 3.90 ng/mL LAB CHEMISTRY METHOD 07/25/2024 10:37 PM EDT [facility] Blood Venous blood specimen / Unknown Venipuncture / Unknown 07/24/2024 2:03 PM EDT 07/24/2024 2:03 PM EDT Latesha France MD LAB BLOOD ORDERABLES Final Result Performing Organization Address [facility] Co de Phone Number [facility] [address] [place] [address], [place] [phone] * Phosphorus (07/24/2024 2:03 PM EDT) Pathologist [facility] Phosphorus 4.1 2.5 - 4.5 mg/dL LAB CHEMISTRY METHOD 07/24/2024 5:36 PM EDT [facility] Blood Venous blood specimen / Unknown Venipuncture / Unknown 07/24/2024 2:03 PM EDT 07/24/2024 2:03 PM EDT us Latesha France MD LAB BLOOD ORDERABLES Final Result Performing Organization Address [facility]/ZIP Co de Phone Number [facility] [address] [place] [address], [place] [phone] * Basic metabolic panel (07/24/2024 2:03 PM EDT) Only the most recent of2 resultswithin the time period is included. Sodium 140 133 - 145 mmol/L LAB CHEMISTRY METHOD 07/24/2024 5:36 PM [facility] Potassium 4.0 3.5 - 5.5 mmol/L LAB CHEMISTRY METHOD 07/24/2024 5:36 PM [facility] Chloride 104 96 - 110 mmol/L LAB CHEMISTRY METHOD 07/24/2024 5:36 PM [facility] CO2 29 21 - 32 mmol/L LAB CHEMISTRY METHOD 07/24/2024 5:36 PM [facility] Anion Gap 7 3 - 11 LAB CHEMISTRY METHOD 07/24/2024 5:36 PM [facility] Glucose 77 70 - 100 mg/dL LAB CHEMISTRY METHOD 07/24/2024 5:36 PM [facility] BUN 7 5 - 25 mg/dL LAB CHEMISTRY METHOD 07/24/2024 5:36 PM [facility] Creatinine 0.57 0.50 - 1.10 mg/dL LAB CHEMISTRY METHOD 07/24/2024 5:36 PM [facility] eGFR 131 >=60 mL/min/1. 73m2 LAB CHEMISTRY METHOD 07/24/2024 5:36 PM [facility] Comment:Calculation based on the??Chronic Kidney Disease Epidemiology Collaboration (CKD-EPI) equation refit??without adjustment for race. BUN/Creatinine Ratio 12.3 LAB CHEMISTRY METHOD 07/24/2024 5:36 PM [facility] Calcium 9.2 8.5 - 10.5 mg/dL LAB CHEMISTRY METHOD 07/24/2024 5:36 PM [facility] Blood Venous blood specimen / Unknown Venipuncture / Unknown 07/24/2024 2:03 PM EDT 07/24/2024 2:03 PM EDT us Latesha France MD LAB BLOOD ORDERABLES Final Result [facility] ([facility]) [facility] [address] [place] [address], [place] [phone] * XR Abdomen 2 Views w Chest 1 View (07/24/2024 1:36 PM EDT) Anatomical Region Laterality Modality Body Radiographic Domonique ging 07/24/2024 2:06 PM EDT Impressions 07/24/2024 2:15 PM EDT No evidence of free intraperitoneal air or a bowel obstruction. ??No evidence of an acute chest process. POS - [id number] -------- FINAL REPORT -------- Dictated By: Merle Rao Dictated Date: 07/24/2024 14:06 ET Assigned Physician: Merle Rao Reviewed and Electronically Signed By: Merle Rao Signed Date: 07/24/2024 14:15 ET Workstation ID: [id number] Transcribed By: Self Edit Transcribed Date: 07/24/2024 14:06 ET Narrative 07/24/2024 2:15 PM EDT EXAM: Abdominal x-ray HISTORY: Abdominal pain. COMPARISON: None FINDINGS: PA view of the chest and supine and upright AP views of the abdomen performed. No evidence of free intraperitoneal air. ??Nonobstructed bowel gas pattern. ??Scattered stool in the colon without excessive stool volume. ??No abdominal stones of concern. ??No organomegaly apparent. ??Umbilical jewelry present. On the frontal view of the chest, no focal infiltrate, pleural effusion, or evidence of pulmonary edema. ??Heart and mediastinal contours are within normal limits. No destructive bone lesion. ?? Procedure Note Merle Rao MD - 07/24/2024 EXAM: Abdominal x-ray HISTORY: Abdominal pain. COMPARISON: None FINDINGS: PA view of the chest and supine and upright AP views of the abdomenperformed. No evidence of free intraperitoneal air. Nonobstructed bowel gas pattern.Scattered stool in the colon without excessive stool volume. Noabdominal stones of concern. No organomegaly apparent. Umbilical jewelrypresent. On the frontal view of the chest, no focal infiltrate, pleural effusion,or evidence of pulmonary edema. Heart and mediastinal contours are withinnormal limits. No destructive bone lesion. IMPRESSION: No evidence of free intraperitoneal air or a bowel obstruction. Noevidence of an acute chest process. POS - [id number] -------- FINAL REPORT -------- Dictated By: Merle Rao Dictated Date: 07/24/2024 14:06 ET Assigned Physician: Merle Rao Reviewed and Electronically Signed By: Merle Rao Signed Date: 07/24/2024 14:15 ET Workstation ID: [id number] Transcribed By: Self Edit Transcribed Date: 07/24/2024 14:06 ET us Latesha France MD IMG XR PROCEDURES Final Res ult * XR Tibia Fibula 2 Views bilat (07/24/2024 1:36 PM EDT) Anatomical Region Laterality Modality Lower Extremities, Calcaneus Bilateral Rad iographic Imaging 07/24/2024 2:15 PM EDT Impressions 07/24/2024 2:18 PM EDT No bony abnormality. POS - [id number] -------- FINAL REPORT -------- Dictated By: Merle Rao Dictated Date: 07/24/2024 14:15 ET Assigned Physician: Merle Rao Reviewed and Electronically Signed By: Merle Rao Signed Date: 07/24/2024 14:18 ET Workstation ID: [id number] Transcribed By: Self Edit Transcribed Date: 07/24/2024 14:15 ET Narrative 07/24/2024 2:18 PM EDT EXAM: Bilateral tibia and fibula x-ray HISTORY: Bilateral lower extremity pain. COMPARISON: None FINDINGS: AP and lateral views performed bilaterally. No evidence of an acute fracture or malalignment. ??No cortical thickening, periosteal new bone formation, or destructive bone lesion. ??No soft tissue calcifications. Procedure Note Merle Rao MD - 07/24/2024 EXAM: Bilateral tibia and fibula x-ray HISTORY: Bilateral lower extremity pain. COMPARISON: None FINDINGS: AP and lateral views performed bilaterally. No evidence of an acute fracture or malalignment. No cortical thickening,periosteal new bone formation, or destructive bone lesion. No soft tissuecalcifications. IMPRESSION: No bony abnormality. POS - [id number] -------- FINAL REPORT -------- Dictated By: Merle Rao Dictated Date: 07/24/2024 14:15 ET Assigned Physician: Merle Rao Reviewed and Electronically Signed By: Merle Rao Signed Date: 07/24/2024 14:18 ET Workstation ID: [id number] Transcribed By: Self Edit Transcribed Date: 07/24/2024 14:15 ET us Latesha France MD IMG XR PROCEDURES Final Res ult * Lipid panel with reflex to direct LDL (07/19/2024 1:38 PM EDT) Cholesterol 142 0 - 200 mg/dL LAB [facility] Triglycerides 54 0 - 150 mg/dL LAB CHEMISTRY METHOD 07/19/2024 5:47 PM [facility] HDL 63 >=40 mg/dL LAB CHEMISTRY METHOD 07/19/2024 5:47 [facility] LDL Calculated 68 0 - 100 mg/dL LAB CHEMISTRY METHOD 07/19/2024 5:47 PM EDT [facility] VLDL Cholesterol Nahid 10.8 mg/dL LAB CHEMISTRY METHOD 07/19/2024 5:47 [facility] Non HDL Chol. (LDL+VLDL) 79 <145 mg/dL LAB CHEMISTRY METHOD 07/19/2024 5:47 [facility] Chol/HDL Ratio 2.3 0.0 - 4.4 LAB CHEMISTRY METHOD 07/19/2024 5:47 PM [facility] Blood Venous blood specimen / Unknown Venipuncture / Unknown 07/19/2024 1:38 PM EDT 07/19/2024 1:38 PM EDT Latesha France MD LAB BLOOD ORDERABLES Final Result Performing Organization Address City/[facility]/ZIP Co de Phone Number [facility] [address] [place] [address], [place] [phone] * Creatine kinase (07/19/2024 1:38 PM EDT) Total CK 52 22 - 269 unit/L LAB CHEMISTRY METHOD 07/19/2024 5:47 PM EDT [facility] Blood Venous blood specimen / Unknown Venipuncture / Unknown 07/19/2024 1:38 PM EDT 07/19/2024 1:38 PM EDT Latesha France MD LAB BLOOD ORDERABLES Final Result Performing Organization Address City/[facility]/ZIP Co de Phone Number [facility] [address] [place] [address], [place] [phone] * (ABNORMAL) Comprehensive metabolic panel (07/19/2024 1:38 PM EDT) Pathologist [facility] Sodium 138 133 - 145 mmol/L LAB CHEMISTRY METHOD 07/19/2024 5:47 PM EDT [facility] Potassium 4.5 3.5 - 5.5 mmol/L LAB CHEMISTRY METHOD 07/19/2024 5:47 PM EDT [facility] Chloride 104 96 - 110 mmol/L LAB CHEMISTRY METHOD 07/19/2024 5:47 PM EDT [facility] CO2 29 21 - 32 mmol/L LAB CHEMISTRY METHOD 07/19/2024 5:47 PM EDT [facility] Anion Gap 5 3 - 11 LAB CHEMISTRY METHOD 07/19/2024 5:47 PM EDT [facility] Glucose 65(L) 70 - 100 mg/dL LAB CHEMISTRY METHOD 07/19/2024 5:47 PM [facility] BUN 8 5 - 25 mg/dL LAB CHEMISTRY METHOD 07/19/2024 5:47 PM [facility] Creatinine 0.63 0.50 - 1.10 mg/dL LAB CHEMISTRY METHOD 07/19/2024 5:47 PM [facility] eGFR 128 >=60 mL/min/1. 73m2 LAB CHEMISTRY METHOD 07/19/2024 5:47 PM [facility] Comment:Calculation based on the??Chronic Kidney Disease Epidemiology Collaboration (CKD-EPI) equation refit??without adjustment for race. BUN/Creatinine Ratio 12.7 LAB CHEMISTRY METHOD 07/19/2024 5:47 PM [facility] Calcium 9.7 8.5 - 10.5 mg/dL LAB CHEMISTRY METHOD 07/19/2024 5:47 PM [facility] AST (SGOT) 6(L) 10 - 42 unit/L LAB CHEMISTRY METHOD 07/19/2024 5:47 PM [facility] ALT (SGPT) 17 10 - 60 unit/L LAB CHEMISTRY METHOD 07/19/2024 5:47 PM [facility] Alkaline Phosphatase 60 42 - 121 unit/L LAB CHEMISTRY METHOD 07/19/2024 5:47 PM [facility] Total Protein 7.8 6.0 - 8.0 g/dL LAB CHEMISTRY METHOD 07/19/2024 5:47 PM [facility] Albumin 4.3 3.2 - 5.0 g/dL LAB CHEMISTRY METHOD 07/19/2024 5:47 PM [facility] Total Bilirubin 0.4 0.0 - 1.4 mg/dL LAB CHEMISTRY METHOD 07/19/2024 5:47 PM [facility] Blood Venous blood specimen / Unknown Venipuncture / Unknown 07/19/2024 1:38 PM EDT 07/19/2024 1:38 PM EDT Latesha France MD LAB BLOOD ORDERABLES Final Result Performing Organization Address [facility]/ZIP Co de Phone Number [facility] [address] [place] [address], [place] [phone] * Thyroid stimulating hormone with reflex to free t4 and free t3 (07/13/2024 2:08 PM EDT) TSH 0.72 0.40 - 4.00 mcIU/mL LAB CHEMISTRY METHOD 07/13/2024 6:38 PM EDT [facility] Blood Venous blood specimen / Unknown Venipuncture / Unknown 07/13/2024 2:08 PM EDT 07/13/2024 2:08 PM EDT Sayda Sarmiento MD LAB BLOOD ORDERABLES Final Result Performing Organization Address [facility] de Phone Number [facility] [address] [place] [address], [place] [phone] * CBC auto differential (07/13/2024 2:08 PM EDT) Only the most recent of3 resultswithin the time period is included. WBC 7.8 4.8 - 10.8 K/mcL LAB HEMETOLOGY METHOD 07/13/2024 6:08 PM EDT [facility] RBC 4.20 3.80 - 4.80 M/mcL LAB HEMETOLOGY METHOD 07/13/2024 6:08 PM EDT [facility] Hemoglobin 12.6 11.5 - 16.0 g/dL LAB HEMETOLOGY METHOD 07/13/2024 6:08 PM EDT [facility] Hematocrit 38.1 35.0 - 47.0 % LAB HEMETOLOGY METHOD 07/13/2024 6:08 PM EDT [facility] MCV 89.9 79.0 - 98.0 FL LAB HEMETOLOGY METHOD 07/13/2024 6:08 PM EDT [facility] MCH 29.7 27.0 - 32.0 pcg LAB HEMETOLOGY METHOD 07/13/2024 6:[facility] MCHC 33.1 32.0 - 37.0 g/dL LAB HEMETOLOGY METHOD 07/13/2024 6:08 PM EDT [facility] RDW 12.3 11.0 - 15.0 % LAB HEMETOLOGY METHOD 07/13/2024 6:[facility] Platelets 296 130 - 400 K/mcL LAB HEMETOLOGY METHOD 07/13/2024 6:08 PM [facility] MPV 10.9 7.0 - 11.0 FL LAB HEMETOLOGY METHOD 07/13/2024 6:08 PM EDT [facility] NRBC 0.0 <1.0 % LAB HEMETOLOGY METHOD 07/13/2024 6:[facility] NRBC Absolute 0.00 <0.10 K/mcL LAB HEMETOLOGY METHOD 07/13/2024 6:08 PM [facility] Neutrophils Relative 74.8 % LAB HEMETOLOGY METHOD 07/13/2024 6:08 PM [facility] Lymphocytes Relative 15.7 % LAB HEMETOLOGY METHOD 07/13/2024 6:[facility] Monocytes Relative 7.7 % LAB HEMETOLOGY METHOD 07/13/2024 6:08 PM [facility] Eosinophils Relative 1.2 % LAB HEMETOLOGY METHOD 07/13/2024 6:08 PM [facility] Basophils Relative 0.3 % LAB HEMETOLOGY METHOD 07/13/2024 6:08 PM EDT [facility] Immature Granulocytes Relative 0.3 % LAB HEMETOLOGY METHOD 07/13/2024 6:08 PM EDT [facility] Neutrophils Absolute 5.80 1.50 - 7.00 K/mcL LAB HEMETOLOGY METHOD 07/13/2024 6:08 PM EDT [facility] Lymphocytes Absolute 1.22 1.00 - 5.00 K/mcL LAB HEMETOLOGY METHOD 07/13/2024 6:08 PM EDT [facility] Monocytes Absolute 0.60 0.20 - 1.00 K/mcL LAB HEMETOLOGY METHOD 07/13/2024 6:08 PM EDT [facility] Eosinophils Absolute 0.09 0.00 - 0.50 K/mcL LAB HEMETOLOGY METHOD 07/13/2024 6:08 PM EDT [facility] Basophils Absolute 0.02 0.00 - 0.20 K/mcL LAB HEMETOLOGY METHOD 07/13/2024 6:08 PM EDT [facility] Immature Granulocytes Absolute 0.02 0.00 - 0.03 K/mcL LAB HEMETOLOGY METHOD 07/13/2024 6:08 PM EDT [facility] Blood Venous blood specimen / Unknown Venipuncture / Unknown 07/13/2024 2:08 PM EDT 07/13/2024 2:08 PM EDT us Sayda Sarmiento MD LAB BLOOD ORDERABLES Final Result [facility] [address] [place] [address], * MR Brain wo Contrast (06/26/2024 2:39 [...] Signed Date: 06/26/2024 15:46 ET Workstation ID: [id number] Transcribed By: Self Edit Transcribed Date: 06/26/2024 [...] Signed Date: 06/26/2024 15:46 ET Workstation ID: [id number] Transcribed By: Self Edit Transcribed Date: 06/26/2024 [...] Signed Date: 06/19/2024 12:40 ET Workstation ID: [id number] Transcribed By: Self Edit Transcribed Date: 06/19/2024 [...] Signed Date: 06/19/2024 12:40 ET Workstation ID: [id number] Transcribed By: Self Edit Transcribed Date: 06/19/2024 [...] 1:52 PM EST) Only the most recent of2 resultswithin the time period is included. Pathologist [facility] Extra Tube Hold for add-ons. 05/24/2024 7:01 PM [facility] Comment:Auto resulted. Urine Urine specimen obtained by clean catch procedure / Unknown Non-blood Collection / Unknown 05/24/2024 1:52 PM EST 05/24/2024 1:52 PM EST Latesha France MD LAB URINE ORDERABLES Final Result [facility] [address] [place] [address], [place] [phone] * Urinalysis with reflex microscopic and culture (05/24/2024 12:41 PM EST) Only the most recent of2 resultswithin the time period is included. [facility] Specific [place] Urine 1.005 1.003 - 1.030 LAB URINALYSIS - AUTOMATED METHOD 05/24/2024 5:34 PM [facility] pH, Urine 6.0 5.0 - 8.0 pH LAB URINALYSIS - AUTOMATED METHOD 05/24/2024 5:34 PM [facility] Leukocytes, Urine Negative Negative LAB URINALYSIS - AUTOMATED METHOD 05/24/2024 5:34 PM [facility] Nitrite, Urine Negative Negative LAB URINALYSIS - AUTOMATED METHOD 05/24/2024 5:34 PM [facility] Protein, Urine Negative <=Trace mg/dL LAB URINALYSIS - AUTOMATED METHOD 05/24/2024 5:34 PM [facility] Glucose, Urine Negative Negative mg/dL LAB URINALYSIS - AUTOMATED METHOD 05/24/2024 5:34 PM [facility] Ketones, Urine Negative Negative mg/dL LAB URINALYSIS - AUTOMATED METHOD 05/24/2024 5:34 PM [facility] Urobilinogen, Urine 0.2 0.2 - 1.0 mg/dL LAB URINALYSIS - AUTOMATED METHOD 05/24/2024 5:34 PM EST [facility] Bilirubin, Urine Negative Negative LAB URINALYSIS - AUTOMATED METHOD 05/24/2024 5:34 PM EST [facility] Blood, Urine Negative Negative LAB URINALYSIS - AUTOMATED METHOD 05/24/2024 5:34 PM EST [facility] Urine Urine specimen obtained by clean catch procedure / Unknown Non-blood Collection / Unknown 05/24/2024 12:41 PM EST 05/24/2024 12:41 PM EST us Latesha Franec MD LAB URINE ORDERABLES Final Result [facility] [address] [place] [address], * XR Thoracic Spine 2 Views (05/24/2024 12:16 PM EST) Anatomical Region Laterality Modality Spine, T-spine Radiographic Domonique ging 05/24/2024 8:50 PM EST Impressions 05/24/2024 8:53 PM EST Minimal degenerative changes. POS - [id number] -------- FINAL REPORT -------- Dictated By: Merle Rao Dictated Date: 05/24/2024 20:50 ET Assigned Physician: Merle Rao Reviewed and Electronically Signed By: Merle Rao Signed Date: 05/24/2024 20:53 ET Workstation ID: [id number] Transcribed By: Self Edit Transcribed Date: 05/24/2024 [...] intact. IMPRESSION: Minimal degenerative changes. POS - [id number] -------- FINAL REPORT -------- Dictated By: Merle Rao Dictated Date: 05/24/2024 20:50 ET Assigned Physician: Merle Rao Reviewed and Electronically Signed By: Merle Rao Signed Date: 05/24/2024 20:53 ET Workstation ID: [id number] Transcribed By: Self Edit Transcribed Date: 05/24/2024 20:50 ET us Latesha France MD IMG XR PROCEDURES Final Res ult * XR Foot 3+ Views Right (05/24/2024 12:16 PM EST) Anatomical Region Laterality Modality Lower Extremities, Foot Right Radiogra [facility] 05/24/2024 8:44 PM EST Impressions 05/24/2024 8:47 PM EST No acute bony abnormality or arthritic changes. POS - [id number] -------- FINAL REPORT -------- Dictated By: Merle Rao Dictated Date: 05/24/2024 20:44 ET Assigned Physician: Merle Rao Reviewed and Electronically Signed By: Merle Rao Signed Date: 05/24/2024 20:47 ET Workstation ID: [id number] Transcribed By: Self Edit Transcribed Date: 05/24/2024 [...] bony abnormality or arthritic changes. POS - [id number] -------- FINAL REPORT -------- Dictated By: Merle Rao Dictated Date: 05/24/2024 20:44 ET Assigned Physician: Merle Rao Reviewed and Electronically Signed By: Merle Rao Signed Date: 05/24/2024 20:47 ET Workstation ID: [id number] Transcribed By: Self Edit Transcribed Date: 05/24/2024 20:44 ET Latesha France MD IMG XR PROCEDURES Final Res ult * External Xray Report (05/24/2024) Only the most recent of2 resultswithin the time period is included. Anatomical Region Laterality Modality Radiographic Domonique ging us Provider [facility] IMG XR PROCEDURES Final Result * ECG-Annotated (05/23/2024) Provider On[facility] ECG ORDERABLES Final Result * ECG 12 lead (05/22/2024 6:00 PM EST) Ventricular Rate ECG 74 BPM GEMUSE Atrial Rate 74 BPM GEMUSE P-R Interval 114 ms GEMUSE QRS Duration 72 ms GEMUSE Q-T Interval 382 ms GEMUSE QTc 424 ms GEMUSE P Wave [place] 54 degrees GEMUSE R [place] 47 degrees GEMUSE T [place] 50 degrees GEMUSE ECG Interpretation Normal sinus rhythm When compared with ECG of 09-MAR-2024 10:01, No significant change was found Confirmed by CARLITO AMAYA ([id number]) on 05/23/2024 7:46:44 PM GEMUSE 05/22/2024 6:00 PM EST 05/23/2024 7:46 PM EST us Jose Romo MD ECG ORDERABLES Final Res ult GEMUSE * [id number], RSV, Influenza A and B qualitative RT-PCR (05/22/2024 5:42 PM EST) Influenza A PCR Not Detected Not Detected LAB MICROBIOLOGY METHOD 05/22/2024 7:00 PM EST [facility] Influenza B PCR Not Detected Not Detected LAB MICROBIOLOGY METHOD 05/22/2024 7:00 PM EST [facility] RSV PCR Not Detected Not Detected LAB MICROBIOLOGY METHOD 05/22/2024 7:00 PM EST [facility] SARS COV-2 Not Detected Not Detected LAB MICROBIOLOGY METHOD 05/22/2024 7:00 PM [facility] Swab Both anterior nares / Unknown Non-blood Collection / Unknown 05/22/2024 5:42 PM EST 05/22/2024 6:16 PM EST Narrative [facility] - 05/22/2024 7:00 PM EST Disclaimer: ??Testing was performed using the [employer] GeneXpert Xpress SARS-CoV-2 _Flu_RSV PLUS PCR assay. [...] for Healthcare providers can be found at https://www.fda.gov/media/444372/download. ?? Fact sheet for Healthcare patients can be found at https://www.fda.gov/media/448779/download. Paulino JONES LAB MICROBIOLOGY - GENERA L ORDERABLES Final Result Performing Organization Address [facility]/ZIP Co de Phone Number [facility] [address] [place] [address], * HCG qualitative, urine (05/22/2024 3:46 PM EST) Pathologist [facility] Preg Test, Ur Negative Negative 05/22/2024 4:17 PM EST [facility] Urine Urine specimen from urethra / Unknown Non-blood Collection / Unknown 05/22/2024 3:46 PM EST 05/22/2024 3:52 PM EST Jose Romo MD LAB URINE ORDERABLES Teresa l Result Performing Organization Address [facility] Co de Phone Number [facility] [address] [place] [address], [place] [phone] * Culture urine (05/22/2024 3:46 PM EST) [facility] Culture, Urine No growth 05/23/2024 1:23 PM EST [facility] Urine Urine specimen obtained by clean catch procedure / Unknown Non-blood Collection / Unknown 05/22/2024 3:46 PM EST 05/22/2024 4:30 PM EST us Jose Romo MD LAB MICROBIOLOGY - GENERA L ORDERABLES Final Result Performing Organization Address City/[facility]/ZIP Co de Phone Number [facility] [address] [place] [address], [place] [phone] * Giardia antigen (05/22/2024 10:05 AM EST) [facility] Giardia lamblia Antigen Negative Negative 05/23/2024 5:13 PM EST [facility] Stool Rectum structure / Unknown Non-blood Collection / Unknown 05/22/2024 10:05 AM EST 05/23/2024 1:33 PM EST Latesha France MD LAB MICROBIOLOGY - GENERAL ORDERABLES Final Result Performing Organization Address City/[facility]/ZIP Co de Phone Number [facility] [address] [place] [address], [place] [phone] * Ova and parasite examination (05/19/2024 11:59 AM EST) Pathologist [facility] Ova and Parasite No Ova or Parasite seen. 06/04/2024 11:18 AM EDT [facility] Stool Rectum structure / Unknown Non-blood Collection / Unknown 05/19/2024 11:59 AM EST 05/23/2024 1:46 PM EST Narrative [facility] - 06/04/2024 11:18 AM EDT Special test request required for Coccidia and Microsporidia. Latesha France MD LAB MICROBIOLOGY - GENERAL ORDERABLES Final Result Performing Organization Address [facility]/ZIP Co de Phone Number [facility] [address] [place] [address], [place] [phone] * Chlamydia trachomatis and Neisseria gonorrhoeae molecular study (04/30/2024 10:52 AM EST) Pathologist [facility] Neisseria gonorrhoeae PCR Negative Negative LAB MOLECULAR DIAGNOSTICS METHOD 05/01/2024 7:20 AM EST [facility] Chlamydia trachomatis PCR Negative Negative LAB MOLECULAR DIAGNOSTICS METHOD 05/01/2024 7:20 AM EST [facility] Swab Cervix uteri structure / Unknown Non-blood Collection / Unknown 04/30/2024 10:52 AM EST 04/30/2024 10:53 AM EST Sally Kinney CN LAB MICROBIOLOGY - GENERAL RITA MUÑIZ Final Result [facility] [address] [place] [address], [place] [phone] * Cervical Cancer Screening: HPV (08/30/2023) Cervical Cancer Screening: HPV abstracted; no interpretation Historical Provider HEALTH MAINTENANCE Final Result * Depression Screening (07/29/2023) Depression Screening abstracted Historical Provider HEALTH MAINTENANCE Final Result from Last 3 Months or Most Recently Relevant to Health Maintenance Insurance [facility] [facility] Care Teams Afloat Cryptologic Manager Relationship Specialty Start Date End Date Latesha France MD [address] [facility] [place] [address] PCP - General Internal Medicine 02/13/24
--- OUTSIDE RECORDS SUMMARY | 2024-08-15 16:46 | XMS_ITS | Encounter Summary ---
Author Organization [facility] Address [address] [place] [address] Care Team Providers Care Flask Pusher Name Role Phone Latesha France MD Primary Care Provider Reason for Visit * Reason Onset Date Comments Cough 04/02/2024 Encounter Details Date Type Department Care Team (Late st Contact Info) Description 04/02/2024 Nurse Triage Adult Medicine [address] [phone] Latesha France MD [address] [place] [id number] Cough Social History Tobacco Use Types Packs/Day [...] she does not have fever * Keisha Martins - 04/02/2024 8:58 AM EST Patient call [...] traveled recently to another state outside of [place], [place], [place], [place], [place], [place], [place]? no o If yes, did you quarantine [...] of accident/Injury: No If yes, gather 3rd democrat insurance information Third Green Party Information: n/a PCP: Latesha France MD Payor: [employer] ([employer]) PLAN / Plan: [employer]ICA[employer] / Product Type: *No Product type* / documented in this encounter Plan of Treatment Upcoming Encounters Date Type Department Care Team (Late st Contact Info) Description 08/17/2024 1:00 PM EDT Office Visit Obstetrics and Gynecology [address] [phone] Sally Kinney CNM [address] [place] [address] 08/17/2024 2:30 PM EDT Office Visit [address] [phone] Latesha France MD [address] [place] [address] 08/27/2024 1:40 PM EDT Office Visit [facility] [address] [place] [address] [place] [phone] Yamilex Eagle NP [address] [place] [address] [place] [address] 03/22/2025 3:00 PM EST Office Visit [address] [phone] Latesha France MD [address] [place] [address] documented as of this encounter Visit Diagnoses Not on filedocumented in this encounter Additional Health Concerns Infection Onset Date Last Indicated Resolved Time Respiratory Rule-Out 05/22/2024 05/22/2024 025 7:00 PM EST C. Diff Rule-Out Infection 05/23/2024 05/22/2024 0 05/23/2024 4:54 PM EST documented as of this encounter Care Teams Flask Pusher Relationship Specialty Start Date End Date Latesha France MD [address] [place] [address] PCP - General Internal Medicine 02/13/24 documented as of this encounter
--- OUTSIDE RECORDS SUMMARY | 2024-08-15 16:46 | XMS_ITS | Encounter Summary ---
Author Organization [facility] [place] [address] Care Team Providers Care Camouflage Specialist Name Role Phone Latesha France MD Primary Care Provider [phone] Reason for Visit * Reason Onset Date Comments painful menses 08/13/2024 Encounter Details Date Type Department Care Team (Late st Contact Info) Description 08/13/2024 Telephone Obstetrics and Gynecology [address] [phone] Sayda Sarmiento MD [address] [place], [place] painful menses Social History Tobacco Use Types Packs/Day Years [...] as of this encounter Progress Notes * Margret Combs RN - 08/13/2024 9:16 AM EDT Appointment made. * Margret Combs RN - 08/13/2024 9:11 AM EDT Called patient. She would like to discuss control for painful menses * Cecilia Bailey - 08/13/2024 8:59 AM EDT Pt calling complaining of painful cramps on menses with nausea, states taking ibuprofen and no relief. Pls advise documented in this encounter Plan of Treatment Upcoming Encounters Date Type Department Care Team (Late st Contact Info) Description 08/17/2024 1:00 PM EDT Office Visit Obstetrics and Gynecology [address] [phone] Sally Kinney CNM [address] [place] [address] 08/17/2024 2:30 PM EDT Office Visit [address] [phone] Latesha France MD [address] [place] [address] 08/27/2024 1:40 PM EDT Office Visit [facility] [address] [place] [phone] Yamilex Eagle NP [address] [place] [address] [place] [address] 03/22/2025 3:00 PM EST Office Visit [address] [phone] Latesha France MD [address] [place] [address] documented as of this encounter Visit Diagnoses Not on filedocumented in this encounter Care Teams Camouflage Specialist Relationship Specialty Start Date End Date Latesha France MD [address] [place] [address] PCP - General Internal Medicine 02/13/24 documented as of this encounter
--- OUTSIDE RECORDS SUMMARY | 2024-08-15 16:46 | XMS_ITS | Encounter Summary ---
Author Organization [employer] Address [address] [place] [address] Care Team Providers Care Strike Planning Applications Name Role Phone Latesha France MD Primary Care Provider [phone]- [phone] Encounter Details Date Type Department Care Team (Late st Contact Info) Description 08/10/2024 Nurse Triage Adult Medicine [facility] [address] [place], [place] [phone] Delfino Berkowitz, LEANA [address] [place], [place] Social History Tobacco Use Types Packs/Day Years [...] as of this encounter Progress Notes * Jazmyne Soto RN - 08/10/2024 9:13 AM EDT Migraines and abd pain Migraines since the the entire head hurts, increased if laying down She is taking magnesium because she heard it was good for migraines and nausea Also taking ibuprofen but uses for the pain in her legs. This pain is in different areas of her legs. Previous work up for the pain in her legs. Was seen in office and advised to follow up with neuro She does have an appt with neuro on Sunday 08/13 and will have them evaluate the migraines Also seen with neuro last week land reviewed MRI results Advised the provider to speak with neuro on 08/08 documented in this encounter Plan of Treatment Upcoming Encounters Date Type Department Care Team (Late st Contact Info) Description 08/17/2024 1:00 PM EDT Office Visit Obstetrics and Gynecology - [address] [phone] Sally Kinney CNM [address] [place] [address] 08/17/2024 2:30 PM EDT Office Visit Adult [address] [phone] Latesha France MD [address] [place] [address] 08/27/2024 1:40 PM EDT Office Visit [facility] - [address] [place] [address] Yamilex Eagle NP [address] [place] [address] [place] [address] 03/22/2025 3:00 PM EST Office Visit [address] [phone] Latesha France MD [address] [place], [place] documented as of this encounter Visit Diagnoses Not on filedocumented in this encounter Care Teams Strike Planning Applications Relationship Specialty Start Date End Date Latesha France MD [address] [address] PCP - General Internal Medicine 02/13/24 documented as of this encounter
--- OUTSIDE RECORDS SUMMARY | 2024-08-15 16:46 | XMS_ITS | Encounter Summary ---
Author Organization [facility] Address [address] [place] [address] Care Team Providers Care Aerospace Assembler Name Role Phone Latesha France MD Primary Care Provider [phone]- [phone] Reason for Visit * Reason Onset Date Comments Hospital Follow-up 07/31/2024 Encounter Details Date Type Department Care Team ([facility] Contact Info) Description 07/31/2024 Telephone Adult Medicine [address] [phone] Latesha France MD [address] [place] [address] [phone] Hospital Follow-up Social History Tobacco Use Types Packs/Day Years [...] Upcoming Encounters Date Type Department Care Team ([facility] Contact Info) Description 08/17/2024 1:00 PM EDT Office Visit Obstetrics and Gynecology - [address] [phone] Sally Kinney CNM [address] [place], [place] 08/17/2024 2:30 PM EDT Office Visit Adult [address] [phone] Latesha France MD [address] [place] [address] 08/27/2024 1:40 PM EDT Office Visit [facility] [address] [place] [address] [place] [address] Yamilex Eagle NP [address] [place] [address] [place] [address] 03/22/2025 3:00 PM EST Office Visit [address] [phone] Latesha France MD [address] [place] [address] documented as of this encounter Visit Diagnoses Not on filedocumented in this encounter Care Teams Aerospace Assembler Relationship Specialty Start Date End Date Latesha France MD [address] [place], [place] PCP - General Internal Medicine 02/13/24 documented as of this encounter
--- OUTSIDE RECORDS SUMMARY | 2024-08-15 16:46 | XMS_ITS | Encounter Summary ---
Author Organization [facility] Address [address] [place] [address] Care Team Providers Care Turbine Technician Name Role Phone Latesha France MD Primary Care Provider Reason for Visit * Reason Onset Date Comments Heavy period 08/13/2024 Encounter Details Date Type Department Care Team (Late st Contact Info) Description 08/13/2024 Telephone Adult Medicine [facility] [address] [place] [address] Latesha France MD [address] [place] [address] Heavy period Social History Tobacco Use Types Packs/Day Years [...] Progress Notes * Jazmyne Soto RN - 08/13/2024 8:46 AM EDT Advised she does need to call her OBGYN for her current concerns * Liliya Osman - 08/13/2024 8:33 AM EDT Patient call requires triage: Symptoms patient is presenting: Patient is reporting a heavier period then normal. She states that she is also having bad cramps. How long has patient had these symptoms?: Day 2 For ALL patients calling to schedule any [...] traveled recently to another state outside of [place], [place], [place], [place], [place], [place]? no o If yes, did you quarantine [...] yes, gather 3rd democrat insurance information Third Libertarian Information: not applicable PCP: Latesha France MD Payor: [facility] [employer] PLAN / Plan: [facility] MEDICAID / Product Type: *No Product type* / documented in this encounter Plan of Treatment Upcoming Encounters Date Type Department Care Team (Late st Contact Info) Description 08/17/2024 1:00 PM EDT Office Visit Obstetrics and Gynecology - [address] [phone] Sally Kinney CNM [address] [place] [address] 08/17/2024 2:30 PM EDT Office Visit Adult Medicine [facility] - [address] [phone] Latesha France MD [address] [place] 08/27/2024 1:40 PM EDT Office Visit [facility] [address] [place] [address] Yamilex Eagle NP [address] [place] [address] [place] [address] 03/22/2025 3:00 PM EST Office Visit Adult Medicine [facility] [address] [place], [place] [phone] Latesha France MD [address] [place] documented as of this encounter Visit Diagnoses Not on filedocumented in this encounter Care Teams Turbine Technician Relationship Specialty Start Date End Date Latesha France MD [address] [place] PCP - General Internal Medicine 02/13/24 documented as of this encounter
--- OUTSIDE RECORDS SUMMARY | 2024-08-15 16:46 | XMS_ITS | Encounter Summary ---
Author Organization [facility] Address [address] [place] [address] Care Team Providers Care Passenger Attendant Name Role Phone Latesha France MD Primary Care Provider Reason for Visit * Reason Onset Date Comments Abdominal Pain 04/25/2024 Diarrhea 04/25/2024 Encounter Details Date Type Department Care Team (Late st Contact Info) Description 04/25/2024 Nurse Triage Adult Medicine [address] [phone] Latesha France MD [address] [place] [address] Abdominal Pain; Diarrhea Social History Tobacco Use [...] traveled recently to another state outside of [place], [place], [place], [place], [place], [place], [place]? no o If yes, did you quarantine [...] democrat insurance information Third Green Party Information: not applicable PCP: Latesha France MD Payor: [employer]AN / Plan: [employer] MEDICAID / Product Type: *No Product type* / documented in this encounter Plan of Treatment Upcoming Encounters Date Type Department Care Team (Late st Contact Info) Description 08/17/2024 1:00 PM EDT Office Visit Obstetrics and Gynecology - [address] [phone] Sally Kinney CNM [address] [place] [address] 08/17/2024 2:30 PM EDT Office Visit [address] [phone] Latesha France MD [address] [place] 08/27/2024 1:40 PM EDT Office Visit [facility] [address] [place] [address] [place] [address] Yamilex Eagle NP [address] [place] [address] [place] [address] 03/22/2025 3:00 PM EST Office Visit [address] [phone] Latesha France MD [address] [place] [address] [place] documented as of this encounter Visit Diagnoses Not on filedocumented in this encounter Additional Health Concerns Infection Onset Date Last Indicated Resolved Time Respiratory Rule-Out 05/22/2024 05/22/2024 025 7:00 PM EST C. Diff Rule-Out Infection 05/23/2024 05/22/2024 0 05/23/2024 4:54 PM EST documented as of this encounter Care Teams Passenger Attendant Relationship Specialty Start Date End Date Latesha France MD 4 [facility] [place] PCP - General Internal Medicine 02/13/24 documented as of this encounter
--- OUTSIDE RECORDS SUMMARY | 2024-08-15 16:46 | XMS_ITS | Encounter Summary ---
Author Organization [facility] Address [address] [place] [address] Care Team Providers Care Gastroenterology Physician Name Role Phone Latesha France MD Primary Care Provider [phone]- [phone] Encounter Details Date Type Department Care Team (Late st Contact Info) Description 07/24/2024 Nurse Triage Adult Medicine [facility] [address] [place] [address] Latesha France MD [address] [place] [address] Social History Tobacco Use Types Packs/Day Years [...] Progress Notes * Giulia Torres RN - 07/25/2024 9:38 AM EDT Called and spoke to pt. She states she was just in the ER. For a functional seizure she had passed out . She had her ER follow up yesterday and states she forgot to tell the doctor she is having lower abd. Pain , mostly in the center . She has sharp shooting pain and also lower back pain mostly on rt. Side . She has increase urination and decrease amt. She is unsure if its abd. Pain or bladder pressure from possible UTI . She has burning with urination and felt nauseated , no fever or chills,she has had episodes of dizziness , last one was last night . And admits she is presently having this abd. Pain on lower level 5/10 . And this a pain is worse with eating and drinking. I advised withher multiple symptoms and episodes of dizziness to return to ER. For evaluation and have someone drive her. Pt. Agrees . documented in this encounter Plan of Treatment Upcoming Encounters Date Type Department Care Team (Late st Contact Info) Description 08/17/2024 1:00 PM EDT Office Visit Obstetrics and Gynecology - [address] [phone] Sally Kinney CNM [address] [place] [address] 08/17/2024 2:30 PM EDT Office Visit Adult [address] [phone] Latesha France MD [address] [place] [address] 08/27/2024 1:40 PM EDT Office Visit [facility] [place] [address] Yamilex Eagle NP [address] [place] [address] [place] [address] 03/22/2025 3:00 PM EST Office Visit Adult [address] [phone] Latesha France MD [address] [place] [address] documented as of this encounter Visit Diagnoses Not on filedocumented in this encounter Care Teams Gastroenterology Physician Relationship Specialty Start Date End Date Latesha France MD [address] [place] [address] PCP - General Internal Medicine 02/13/24 documented as of this encounter
[2024-08-15 16:54] LABS: Basophils Percent Auto 0.3 % (0-2); Eosinophils Absolute Auto 0.1 X10*3/uL (0.0-0.4); Eosinophils Percent Auto 1.9 % (0-4); Hematocrit 35.5 % (37.0-47.0); Hemoglobin 12.6 g/dl (12.0-16.0); Imm Gran Abs Auto 0.02 X10*3/uL (0.00-0.03); Imm Gran Pct Auto 0.3 % (0.0-0.4); Lymphocytes Absolute Auto 1.2 X10*3/uL (1.2-4.9); Lymphocytes Percent Auto 16.6 % (20-40); MANUAL DIFF FLAG NO; Mean Corpuscular HGB Conc 35.5 g/dl (31.0-35.0); Mean Corpuscular Hemoglobin 30.7 pg (27.0-33.0); Mean Corpuscular Volume 86.4 fL (80.0-98.0); Mean Platelet Volume 10.2 fL (9.4-12.3); Monocytes Absolute Auto 0.4 X10*3/uL (0.1-1.2); Monocytes Percent Auto 5.7 % (2-11); Neutrophils Absolute Auto 5.6 x10*3/uL (2.0-8.3); Neutrophils Percent Auto 75.2 % (45-73); Platelet Count 272 X10*3/uL (160-400); Red Blood Count 4.11 X10*6/uL (4.20-5.50); Red Cell Distribution Width 12.2 % (11.0-16.0); White Blood Count 7.4 X10*3/uL (4.8-10.8)
[2024-08-15 17:10] LABS: Alanine Aminotransferase 13 U/L (0-31); Albumin Level 4.6 g/dL (3.5-5.0); Alkaline Phosphatase 48 U/L (39-117); Anion Gap 11 (12-20); Aspartate Amino Transferase 18 U/L (5-31); Bilirubin Total 0.3 mg/dL (0.0-1.0); Blood Urea Nitrogen 12 mg/dL (9-16); Calcium 9.5 mg/dL (8.4-10.2); Carbon Dioxide 22 mmol/L (22-29); Chloride 111 mmol/L (96-108); Creatinine Clr Calc Pharmacy 116.8; Estimated Glomerular Filt Rate > 60; Glucose Random 86 mg/dL (60-115); Lactic Acid 1.5 mmol/L (0.5-2.0); Lipase 19 U/L (8-78); Magnesium 1.9 mg/dL (1.6-2.6); Potassium 3.8 mmol/L (3.3-5.1); Sodium 140 mmol/L (135-145); Total Protein 7.3 g/dL (6.5-8.0)
[2024-08-15] MEDS: PHENobarbitaL 30 MG TABLET PO (18:09)
[2024-08-15 18:15] LABS: Amphetamine Screen Urine Not Detected (Not Detect); Barbiturates, Urine Not Detected (Not Detect); Benzodiazepines Screen Urine POSITIVE (Not Detect); Buprenorphine Scr Not Detected (Not Detect); Cannabinoid Screen Urine Not Detected (Not Detect); Cocaine Screen Urine Not Detected (Not Detect); Fentanyl, urine Not Detected (Not Detect); Methadone Screen, Urine Not Detected (Not Detect); Opiate Screen Urine Not Detected (Not Detect); Oxycodone Screen Urine Not Detected (Not Detect); Phencyclidine Screen Urine Not Detected (Not Detect)
[2024-08-15 18:19] VITALS: BP 102/61; PULSE 71; RESP 13; TEMP 36.4; O2SAT 100
[2024-08-15 18:44] VITALS: BP 102/61; PULSE 71; RESP 13; TEMP 36.4; O2SAT 100
[2024-08-16 07:18] LABS: Prolactin 28.6 ng/mL
== END 2024-08-15 18:44 | disposition home or self-care (01) ==
PROVIDERS: Emergency Provider Emergency Medicine
DX: G40.89 Other seizures (principal); Z51.81 Encounter for therapeutic drug level monitoring; Z79.899 Other long term (current) drug therapy
CPT/HCPCS: 36415; 80053; 80307; 82550; 83605; 83690; 83735; 84146; 85025; 93005; 99283; 99284

== ENCOUNTER → 2024-08-15 16:32 | Outpatient (BNV) | payer OTHER, SELFPAY | PROVIDERS: Emergency Provider Emergency Medicine; Visit Provider Internal Medicine Cardiovascular Disease | DX: R56.9 Unspecified convulsions (principal) | CPT/HCPCS: 93010 ==

== ENCOUNTER 2024-08-15 21:10 | Emergency (ER) | payer OTHER, SELFPAY ==
[2024-08-15 21:13] VITALS: BP 119/71; PULSE 78; RESP 14; TEMP 36.6; O2SAT 96; BMI 21.0
[2024-08-15] MEDS: diazePAM 10 MG/2 ML CARTRIDGE 2 MG IM (21:15)
--- NOTE | 2024-08-15 21:22 | ED_ITS ---
HPI - Seizure General Chief Complaint: Seizure Stated Complaint: unresponsive Time Seen by Provider: 08/15/24 21:16 Source: other Mode of arrival: wheelchair Limitations: other History of Present Illness ED Provider: Dr. Geena Olsen HPI Narrative: Patient comes to the emergency room via private vehicle. Patient had to be pulled out of the car, patient was having up pseudo-seizure. Patient was taken to the back. Patient following commands well still seizing . Patient was seen here earlier today with another pseudo-seizure. Patient very anxious, patient on arrival was given 2 mg IM of diazepam. Related Data Previous Rx's ?Medication ?Instructions ?Recorded ondansetron 4 mg disintegrating 4 mg PO Q8H 3 days #9 tabs 06/18/23 tablet bnhkafjydc-fkpvbhletwfcd-lzverkgn 1 cap PO TID PRN pain #14 caps 06/19/23 50 mg-300 mg-40 mg capsule (Fioricet) ketorolac 10 mg tablet 10 mg PO Q8H PRN pain #10 tabs 06/19/23 benzonatate 150 mg capsule 150 mg PO TID PRN cough #14 caps 09/27/23 oocdcblfrt-fnryrecaetent-sewbjrsi 1 tab PO Q6H PRN haeadace #20 tabs 10/10/23 50 mg-325 mg-40 mg tablet Allergies Allergy/AdvReac Type Severity Reaction Status Date / Time No Known Allergies Allergy Verified 08/15/24 21:16 Review of Systems Review of Systems: Yes Other [facility] Past Medical History Medical History Anxiety Migraine Social History Social History Advance Directives: No Advance Directives Information Provided: Yes Physical Exam Vital Signs: Vital Signs: Last Vital Signs Temp 98 F 08/15/24 21:13 Pulse 78 08/15/24 21:13 Resp 14 08/15/24 21:13 BP 119/71 08/15/24 21:13 Pulse Ox 96 08/15/24 21:13 BMI result Body Mass Index 21.0 Const: Other: Appearance: Alert. Moving her upper limbs and lower limbs imitating a seizure. However, patient is still able to follow commands such as lifting her arms up to remove the sweater Eyes: Refusing to open her eyes, she holding them tightly closed ENT: Pharynx normal. Neck: Normal inspection. Neck supple. No lymph nodes noted. No crepitus CVS: Normal heart rate and rhythm. Pulses normal. Normal S1 and S2 Respiratory: No respiratory distress. Breath sounds normal. No Wheezing. No r ales Abdomen: Soft and nontender. No rigidity. No distention. Skin: Skin warm and dry. Normal skin color. Normal skin turgor. Extremities: No lower extremity edema. No Lacerations. No Rash Neuro: Unwilling to participating cranial nerve assessment Psych: Tearful Course Course Course Narrative: This is a 2nd time that patient comes for up pseudo-seizure Patient was given IM diazepam 2 mg I reviewed patient's labs from a few hours ago, no significant abnormality. Glucose Point of care 115 Medications Administered Discontinued Medications Generic Name Dose Route Start Last Admin Trade Name Aryanq PRN Reason Stop Dose Admin Diazepam 2 mg 08/15/24 21:17 08/15/24 21:15 Diazepam 10 Mg/2 Ml Cartridge IM 08/15/24 21:18 2 mg STAT STA Administration Prochlorperazine Maleate 5 mg 08/15/24 22:12 08/15/24 22:32 Prochlorperazine Maleate 5 Mg Tablet PO 08/15/24 22:13 5 mg ONCE ONE Administration Medical Decision Making Medical Decision Making [facility] Narrative: I reviewed patient's lab work from today, no abnormalities. At this time, there is no need to repeat patient's labs. Patient has been here multiple times for psychogenic nonepileptic seizures Reviewing patient's list of medication, yesterday, a prescriber sent to the patient's pharmacy p.o. phenobarbital. From previous notes from earlier today, seems that the boyfriend informed the previous provider that they have not picked up her medication. At this time, patient was given IM medication to help with the panic attack rather than an ?seizure? Patient awake, alert and oriented x3. Patient feeling better, reporting a bit of nausea. Patient states that she has Zofran at home that does not work well. Patient was given here Compazine p.o.. Patient's vitals stable Patient ambulatory with steady normal gait Differential Diagnosis Differential Diagnoses: The differential diagnosis associated with the presentation includes (Pseudo-seizure, anxiety, depression) Lab Data [facility] Lab Attestation statement: I reviewed the patient's lab results. Labs: Lab Results 08/15/24 Range/Units 21:26 POC Glucose 115 (60-115) mg/dL Critical Care Time Critical Care Time Critical Care Time: Yes Total Critical Care Time: 35 Attestation: I have personally provided critical care time. Time includes review of lab data, radiology results, discussion with consultants, and monitoring for potential decompensation. Intervention performed as documented. Discharge Plan Discharge Clinical Impression: Psychogenic nonepileptic seizure Patient Disposition: Home, Self-Care Instructions: Nonepileptic Seizures (ED) Additional Instructions: Please follow-up with your primary care physician tomorrow. If you have any worsening or new symptoms, please return to the emergency room or call 911 Prescriptions: No Action ondansetron 4 mg tablet,disintegrating 4 mg PO Q8H 3 Days Qty: 9 0RF orzahicpas-widibsfhrdvgx-rhlu [Fioricet] 50-300-40 mg capsule 1 cap PO TID PRN (Reason: pain) Qty: 14 0RF ketorolac 10 mg tablet 10 mg PO Q8H PRN (Reason: pain) Qty: 10 0RF Rx Instructions: Do not use NSAIDs with this medication benzonatate 150 mg capsule 150 mg PO TID PRN (Reason: cough) Qty: 14 0RF indxengmjc-gjosljybkouph-fnzq 50-325-40 mg tablet 1 tab PO Q6H PRN (Reason: haeadace) Qty: 20 0RF Print Language: Mohawk
[2024-08-15 21:30] LABS: Glucose, Whole Blood 115 mg/dL (60-115)
[2024-08-15] MEDS: Prochlorperazine Maleate 5 MG TABLET PO (22:32)
--- NOTE | 2024-08-15 22:34 | PC.NURSE ---
patient medicated as ordered for nausea
[2024-08-15 23:02] VITALS: BP 109/66; PULSE 91; RESP 20; TEMP 36.7; O2SAT 99
[2024-08-15 23:21] VITALS: BP 109/66; PULSE 91; RESP 20; TEMP 36.7; O2SAT 99
== END 2024-08-15 23:21 | disposition home or self-care (01) ==
PROVIDERS: Emergency Provider Emergency Medicine; PCP Internal Medicine
DX: G40.89 Other seizures (principal); Z79.899 Other long term (current) drug therapy
CPT/HCPCS: 82947; 96372; 99283; 99284; J3360

== ENCOUNTER 2024-09-01 02:05 | Emergency (ER) | payer OTHER, SELFPAY ==
--- NOTE | 2024-09-01 | ECG_ITS ---
Test Reason : seizure Blood Pressure : */* mmHG Vent. Rate : 69 BPM Atrial Rate : 69 BPM P-R Int : 114 ms QRS Dur : 74 ms QT Int : 380 ms P-R-T Axes : 49 41 58 degrees QTcB Int : 407 ms Sinus rhythm with marked sinus arrhythmia Otherwise normal ECG When compared with ECG of 15-Aug-2024 16:53, No significant change was found Referred By: Generic ED Physician Electronically Signed By: MONICA FISHER
[2024-09-01 02:06] VITALS: BP 104/67; BP 118/72; PULSE 76; PULSE 91; RESP 20; TEMP 36.7; O2SAT 100; BMI 24.4
[2024-09-01 02:28] LABS: Basophils Percent Auto 0.4 % (0-2); Eosinophils Absolute Auto 0.4 X10*3/uL (0.0-0.4); Eosinophils Percent Auto 6.5 % (0-4); Hematocrit 36.4 % (37.0-47.0); Lymphocytes Absolute Auto 2.9 X10*3/uL (1.2-4.9); Lymphocytes Percent Auto 42.7 % (20-40); MANUAL DIFF FLAG NO; Mean Corpuscular HGB Conc 35.7 g/dl (31.0-35.0); Mean Corpuscular Volume 84.1 fL (80.0-98.0); Mean Platelet Volume 9.9 fL (9.4-12.3); Monocytes Absolute Auto 0.6 X10*3/uL (0.1-1.2); Monocytes Percent Auto 8.7 % (2-11); Neutrophils Absolute Auto 2.9 x10*3/uL (2.0-8.3); Neutrophils Percent Auto 41.7 % (45-73); Platelet Count 298 X10*3/uL (160-400); Red Blood Count 4.33 X10*6/uL (4.20-5.50); Red Cell Distribution Width 12.2 % (11.0-16.0); White Blood Count 6.8 X10*3/uL (4.8-10.8)
--- NOTE | 2024-09-01 02:30 | PC.NURSE ---
pt biba from home, alert and following commands but not verbal. per ems pt had 30 minute witnessed seizure and became unresponsive. pt is on an unknown seizure medication. pt able to follow commands and track this rns voice. vss. 22g placed in left bicep. labs and ekg obtained.
--- NOTE | 2024-09-01 02:35 | MHC.EDTECH ---
Patient was biba for seizure ,ekg takeen and was read by Carolyn ,Patient sleeping ,all safety measure in place ,Call peterson within Pt reach .
[2024-09-01 02:47] LABS: Alanine Aminotransferase 13 U/L (0-31); Albumin Level 4.6 g/dL (3.5-5.0); Alkaline Phosphatase 50 U/L (39-117); Anion Gap 14 (12-20); Aspartate Amino Transferase 16 U/L (5-31); Bilirubin Total 0.2 mg/dL (0.0-1.0); Blood Urea Nitrogen 13 mg/dL (9-16); Calcium 9.6 mg/dL (8.4-10.2); Carbon Dioxide 21 mmol/L (22-29); Chloride 107 mmol/L (96-108); Estimated Glomerular Filt Rate > 60; Glucose Random 104 mg/dL (60-115); Potassium 3.7 mmol/L (3.3-5.1); Sodium 138 mmol/L (135-145); Total Protein 6.9 g/dL (6.5-8.0)
--- NOTE | 2024-09-01 03:37 | ED.SEIZURE ---
HPI - Seizure General Chief Complaint: Seizure Stated Complaint: SEIZURE. 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 Seizure History: Yes Place: Home Related Data Previous Rx's ?Medication ?Instructions ?Recorded ondansetron 4 mg disintegrating 4 mg PO Q8H 3 days #9 tabs 06/18/23 tablet xomdqowyhz-eqynnocyfwflu-bbldjnbf 1 cap PO TID PRN pain #14 caps 06/19/23 50 mg-300 mg-40 mg capsule (Fioricet) ketorolac 10 mg tablet 10 mg PO Q8H PRN pain #10 tabs 06/19/23 benzonatate 150 mg capsule 150 mg PO TID PRN cough #14 caps 09/27/23 eeoukteagw-axezhywmvitvd-sbqpljoq 1 tab PO Q6H PRN haeadace #20 tabs 10/10/23 50 mg-325 mg-40 mg tablet Allergies Allergy/AdvReac Type Severity Reaction Status Date / Time No Known Allergies Allergy Verified 09/01/24 13:54 Review of Systems Review of Systems: Yes all other systems are reviewed and are negative [facility] Past Medical History Medical History Anxiety Migraine Social History Social History Unable to assess alcohol history related to: Unable to respond Advance Directives: No Advance Directives Information Provided: No Physical Exam Vital Signs: Vital Signs: Last Vital Signs Temp 98.0 F 09/01/24 04:53 Pulse 67 09/01/24 04:53 Resp 16 09/01/24 04:53 BP 90/56 L 09/01/24 04:53 Pulse Ox 98 09/01/24 04:53 O2 Del Method Room Air 09/01/24 04:53 BMI result Body Mass Index 24.4 Appearance: Alert. Oriented X3. No acute distress. Eyes: PERRLA, No Nystagmus ENT: Pharynx normal. Oral Mucosa moist no tongue bite Neck: Normal inspection. Neck supple. CVS: Normal heart rate and rhythm. Pulses normal. Respiratory: No respiratory distress. Equal air entry bilateral, no wheezing/rales/rhonchi Abdomen: Soft and nontender. Bowel sounds are present, no mass palpable, no CVA tenderness Skin: Skin warm and dry. Normal skin color. Normal skin turgor. Extremities: No lower extremity edema. No calf tenderness Neuro: Oriented X 3. No motor deficit. No sensory deficit.No cerebellar signs , cranial nerves II-XII intact Medical Decision Making Medical Decision Making [facility] Narrative: Patient with pseudo-seizure nonepileptic during stay patient was feeling better ambulatory discharge patient home advised to continue her medication follow up with PCP Lab Data [facility] Lab Attestation statement: I reviewed the patient's lab results. 09/01/24 02:23 09/01/24 02:23 Labs: Lab Results 09/01/24 Range/Units 02:23 WBC 6.8 (4.8-10.8) X10*3/uL RBC 4.33 (4.20-5.50) X10*6/uL Hgb 13.0 (12.0-16.0) g/dl Hct 36.4 L (37.0-47.0) % MCV 84.1 (80.0-98.0) fL MCH 30.0 (27.0-33.0) pg MCHC 35.7 H (31.0-35.0) g/dl RDW 12.2 (11.0-16.0) % Plt Count 298 (160-400) X10*3/uL MPV 9.9 (9.4-12.3) fL Immature Gran % (Auto) 0.0 (0.0-0.4) % Neut % (Auto) 41.7 L (45-73) % Lymph % (Auto) 42.7 H (20-40) % Guthrie % (Auto) 8.7 (2-11) % Eos % (Auto) 6.5 H (0-4) % Baso % (Auto) 0.4 (0-2) % Lymph # (Auto) 2.9 (1.2-4.9) X10*3/uL Guthrie # (Auto) 0.6 (0.1-1.2) X10*3/uL Eos # (Auto) 0.4 (0.0-0.4) X10*3/uL Baso # (Auto) 0.0 (0.0-0.2) X10*3/uL Abs Immat Gran (auto) 0.00 (0.00-0.03) X10*3/uL Absolute Neuts (auto) 2.9 (2.0-8.3) x10*3/uL Absolute Nucleated RBC 0.000 (0.0-0.012) X10*3/uL Nucleated RBC % (auto) 0.0 (0.0-0.2) /100WBC Sodium 138 (135-145) mmol/L Potassium 3.7 (3.3-5.1) mmol/L Chloride 107 (96-108) mmol/L Carbon Dioxide 21 L (22-29) mmol/L Anion Gap 14 (12-20) BUN 13 (9-16) mg/dL Creatinine 0.75 (0.5-1.4) mg/dL Estim Creat Clear Calc 92.0 Estimated GFR > 60 Random Glucose 104 (60-115) mg/dL Calcium 9.6 (8.4-10.2) mg/dL Total Bilirubin 0.2 (0.0-1.0) mg/dL AST 16 (5-31) U/L ALT 13 (0-31) U/L Alkaline Phosphatase 50 (39-117) U/L Total Protein 6.9 (6.5-8.0) g/dL Albumin 4.6 (3.5-5.0) g/dL Discharge Plan Discharge Clinical Impression: Psychogenic nonepileptic seizure Patient Disposition: Home, Self-Care Instructions: Conversion Disorder (ED) Additional Instructions: Take your medication for anxiety as prescribed by your PCP Prescriptions: No Action ondansetron 4 mg tablet,disintegrating 4 mg PO Q8H 3 Days Qty: 9 0RF avsrqigdbi-mxzzxkxifjjvn-nrvz [Fioricet] 50-300-40 mg capsule 1 cap PO TID PRN (Reason: pain) Qty: 14 0RF ketorolac 10 mg tablet 10 mg PO Q8H PRN (Reason: pain) Qty: 10 0RF Rx Instructions: Do not use NSAIDs with this medication benzonatate 150 mg capsule 150 mg PO TID PRN (Reason: cough) Qty: 14 0RF umpgmlatnw-qoqjhklyljekb-ekdi 50-325-40 mg tablet 1 tab PO Q6H PRN (Reason: haeadace) Qty: 20 0RF Interventions: ED Discharge Assessment Last Done: 09/01/24 04:53 Discharge Date/Time: 09/01/24 04:53 Print Language: Croatian
[2024-09-01 04:19] VITALS: BP 90/56; PULSE 67; RESP 16; TEMP 36.7; O2SAT 98
--- NOTE | 2024-09-01 04:31 | MHC.EDTECH ---
Patient awake ,0400 rounding and vitals done ,Per Provider request ,Patient up oob , ambulate to bathroom ,independently ,void and back to bed ,Provider aware that Patient did well walking .
[2024-09-01 04:53] VITALS: BP 90/56; PULSE 67; RESP 16; TEMP 36.7; O2SAT 98
== END 2024-09-01 04:53 | disposition home or self-care (01) ==
PROVIDERS: Emergency Provider Internal Medicine; PCP Internal Medicine
DX: R56.9 Unspecified convulsions (principal)
CPT/HCPCS: 36415; 80053; 85025; 93005; 99283; 99284

== ENCOUNTER → 2024-09-01 02:28 | Outpatient (BNV) | payer OTHER, SELFPAY | PROVIDERS: Emergency Provider Internal Medicine; PCP Internal Medicine; Visit Provider Internal Medicine | DX: R56.9 Unspecified convulsions (principal) | CPT/HCPCS: 93010 ==

== ENCOUNTER 2024-09-01 13:39 | Emergency (ER) | payer OTHER, SELFPAY ==
[2024-09-01 13:53] VITALS: BP 107/65; BP 116/83; PULSE 70; PULSE 86; RESP 14; TEMP 36.7; O2SAT 96; O2SAT 97; BMI 20.8
[2024-09-01 13:56] VITALS: BP 104/62; PULSE 71; RESP 14; O2SAT 97
--- NOTE | 2024-09-01 14:01 | PC.NURSE ---
Patient presents from home where she was noted to be experiencing some catatonic behavior which responded to tactile and noxious stimuli per EMS. Was seen yesterday for pyschogenic nonepileptic seizures of which she takes phenobarb and was dicharged. Respirations evena and non-labored. Abdomen soft, flat, non-tender with positive bowel sounds. Patient continued not to verbally respond at this time. Past Medical History Medical History Anxiety Migraine psychogenic nonepileptic seizure
--- OUTSIDE RECORDS SUMMARY | 2024-09-01 14:04 | XMS_ITS | Encounter Summary ---
Author Organization [facility] Address [address] [place] [address] Care Team Providers Care [employer] Partnership Rep Name Role Phone Latesha France MD Primary Care Provider Reason for Visit * Reason Onset Date Comments Hypotension 03/19/2024 Encounter Details Date Type Department Care Team (Late st Contact Info) Description 03/19/2024 Nurse Triage Adult Medicine [address] [phone] Latesha France MD [address] [place] [phone] Hypotension Social History Tobacco Use Types Packs/Day [...] traveled recently to another state outside of [place], [place], [place], [place], [place], [place], [place]? no o If yes, did you [...] gather 3rd green party insurance information Third Green Party Information: not applicable PCP: Latesha France MD Payor: [employer] PLAN / Plan: [employer] MEDICAID / Product Type: *No Product type* / documented in this encounter Plan of Treatment Upcoming Encounters Date Type Department Care Team (Late st Contact Info) Description 09/12/2024 1:15 PM EDT Ancillary Procedure [facility] [address] [place] [address] 11/21/2024 2:00 PM EDT Clinical Support Obstetrics and Gynecology - [address] [phone] 03/22/2025 3:00 PM EST Office Visit Adult Medicine [address] [phone] Latesha France MD [address] [place] [phone] documented as of this encounter Visit Diagnoses Not on filedocumented in this encounter Additional Health Concerns Infection Onset Date Last Indicated Resolved Time Respiratory Rule-Out 05/22/2024 05/22/2024 025 7:00 PM EST C. difficile Rule-Out 05/23/2024 05/22/20242024 4:54 PM EST documented as of this encounter Care Teams University Partnership Rep Relationship Specialty Start Date End Date Latesha France MD [address] [place] [address] PCP - General Internal Medicine 02/13/24 documented as of this encounter
--- NOTE | 2024-09-01 14:14 | ED.GENADULT ---
HPI - General Adult General Chief complaint: Behavioral Concerns Stated complaint: LETHARGY Time Seen by Provider: 09/01/24 14:05 Source: patient and RN notes reviewed Mode of arrival: ambulatory Limitations: no limitations History of Present Illness ED Provider: Cassie Nunes PA-C [facility] narrative: This is a 24-year-old female who presents emergency department via EMS with concerns for catatonia. Patient is here with boyfriend. She was seen here last night for similar symptoms. Boyfriend states that when she went home she went to sleep and would not wake up. She was still breathing however was unresponsive. Boyfriend states that patient has had this in the past. She is currently on phenobarbital, no missed dosages. On arrival, patient lying in bed, breathing, appears to be under no acute distress. Patient with clenched eyes, not opening her eyes however is responsive, does not allow me to drop-arm on hand. She is moving all extremities. I then flash my lights within her pupils and she spontaneously stay well, she is now sitting upright, not speaking however nodding yes and no. She is in no current pain. MD complaint: ? Altered mental status Associated symptoms: denies other symptoms Treatments prior to arrival: none Related Data Previous Rx's ?Medication ?Instructions ?Recorded ondansetron 4 mg disintegrating 4 mg PO Q8H 3 days #9 tabs 06/18/23 tablet bkqfbnfued-hpynzsmasnnta-mjghvofh 1 cap PO TID PRN pain #14 caps 06/19/23 50 mg-300 mg-40 mg capsule (Fioricet) ketorolac 10 mg tablet 10 mg PO Q8H PRN pain #10 tabs 06/19/23 benzonatate 150 mg capsule 150 mg PO TID PRN cough #14 caps 09/27/23 huczuvnqcj-ybfxnmpcboztn-tuznjnjw 1 tab PO Q6H PRN haeadace #20 tabs 10/10/23 50 mg-325 mg-40 mg tablet Allergies Allergy/AdvReac Type Severity Reaction Status Date / Time No Known Allergies Allergy Verified 09/01/24 13:54 Review of Systems Review of Systems: Yes all other systems are reviewed and are negative Constitutional: Constitutional: Reports as per [facility] Past Medical History Medical History Anxiety Migraine Social History Social History Unable to assess alcohol history related to: Unable to respond Advance Directives: No Advance Directives Information Provided: No Physical Exam ED Vital Signs: Vital Signs - 24 hr 09/01/24 13:53 09/01/24 13:56 09/01/24 16:07 Temperature 98.1 F 97.8 F Pulse Rate 70 71 76 Respiratory Rate 14 14 18 Blood Pressure 107/65 104/62 92/58 L Pulse Oximetry 97 97 97 Oxygen Delivery Method Room Air Room Air Room Air 09/01/24 17:34 Temperature 97.8 F Pulse Rate 76 Respiratory Rate 18 Blood Pressure 92/58 L Pulse Oximetry 97 Oxygen Delivery Method Room Air BMI result Body Mass Index 20.8 Const General: cooperative, comfortable and no acute distress Orientation/consciousness: patient oriented x3 Limitations: no limitations HENMT Head: Yes normal to inspection, Yes normocephalic and Yes atraumatic Ears: hearing grossly normal bilaterally General nose exam: Normal external nose present Face and sinus: Yes normal facial exam Mouth: Normal oral and palatal mucosa present, oropharynx normal and moist mucous membranes Throat: Yes posterior oropharynx normal Eyes General: appearance normal, both eyes and all related structures Eyelids: Yes eyelids normal Conjunctivae: conjunctivae normal Sclerae: sclerae normal Pupils: Equal, round and reactive pupils present EOM: EOMs intact bilaterally Neck Neck: Yes normal visual inspection, Yes full ROM and Yes no lymphadenopathy Lymphatic: no lymphadenopathy noted Chest Chest palpation & inspection: normal inspection of the chest Resp Effort & Inspection: normal respiratory effort and able to speak in complete sentences Auscultation: clear to auscultation bilaterally, no crackles, no rales, no rhonchi and no wheezes Cardio Rate: regular rate Rhythm: regular rhythm Heart sounds: S1 normal heart sound present and S2 normal heart sound present GI Inspection: Yes normal to inspection Skin General skin exam: no rashes or lesions noted Trauma: no lacerations or abrasions Wounds: no wounds Neuro General: patient oriented x3 and moves all extremities Cranial nerves: Yes Equal, round and reactive pupils present Extrem General: Yes normal to inspection Right upper extremity: normal to inspection Left upper extremity: normal to inspection Right lower extremity: normal to inspection Left lower extremity: normal to inspection Medications Administered Discontinued Medications Generic Name Dose Route Start Last Admin Trade Name Marcellus PRN Reason Stop Dose Admin Lorazepam 1 mg 09/01/24 17:05 09/01/24 17:29 Lorazepam 1 Mg Tablet PO 09/01/24 17:06 1 mg ONCE ONE Administration Medical Decision Making Medical Decision Making [facility] Narrative: This is a 24-year-old female who presents emergency department with concerns for ? Catatonia. On arrival, vital signs within normal limits. Patient with forcefully closed eyes, raised arm above head, patient avoids arm hitting herself in the head. The pupils are reactive. After several minutes of evaluating her, she spontaneously awakes. She is not speaking however does nod yes or no to questions. Patient has been seen here multiple times for similar presentations. Will obtain labs to rule out any electrolyte derangement. Differential diagnoses include electrolyte derangement, psychogenic seizure, ELLIE, seizure. Labs were obtained, she has no leukocytosis, stable H&H, no electrolyte derangement. U tox positive for barbiturates. Patient is alert, eating and drinking without difficulty, speaking in full sentences under no acute distress. Discussed overall workup with patient, given that she is neurologically intact with no focal deficits, I stressed the importance of following up with her neurologist as well as her primary care physician. She understands and agrees with plan. Given strict return precautions. Patient stable for discharge. 1700 - upon discharge, patient had another ?episode? where she is breathing, does respond to pain stimuli, forcefully closing eyes. This lasts for about 1-2 minutes. She is awake again, I discussed this case with my attending physician, Dr. Barbour. Recommends giving oral dose of Ativan as this can help with her symptoms. Patient is speaking freely, will medicate with Ativan and reassess. 1735 patient feeling much better after receiving Ativan, she would like to be discharged at this point. Discussed strict return precautions. Patient stable for discharge. Differential Diagnosis Differential Diagnoses: The differential diagnosis associated with the presentation includes See above Admission/Observation Consideration of admission/observation: Escalation of care including admission/observation considered Lab Data [facility] Lab Attestation statement: I reviewed the patient's lab results. See MDM and course 09/01/24 15:31 09/01/24 15:31 Labs: Lab Results 09/01/24 09/01/24 Range/Units 15:31 15:48 WBC 8.7 (4.8-10.8) X10*3/uL RBC 4.41 (4.20-5.50) X10*6/uL Hgb 13.3 (12.0-16.0) g/dl Hct 38.0 (37.0-47.0) % MCV 86.2 (80.0-98.0) fL MCH 30.2 (27.0-33.0) pg MCHC 35.0 (31.0-35.0) g/dl RDW 12.1 (11.0-16.0) % Plt Count 286 (160-400) X10*3/uL MPV 9.9 (9.4-12.3) fL Immature Gran % (Auto) 0.2 (0.0-0.4) % Neut % (Auto) 79.7 H (45-73) % Lymph % (Auto) 12.6 L (20-40) % Billings % (Auto) 5.6 (2-11) % Eos % (Auto) 1.7 (0-4) % Baso % (Auto) 0.2 (0-2) % Lymph # (Auto) 1.1 L (1.2-4.9) X10*3/uL Billings # (Auto) 0.5 (0.1-1.2) X10*3/uL Eos # (Auto) 0.2 (0.0-0.4) X10*3/uL Baso # (Auto) 0.0 (0.0-0.2) X10*3/uL Abs Immat Gran (auto) 0.02 (0.00-0.03) X10*3/uL Absolute Neuts (auto) 7.0 (2.0-8.3) x10*3/uL Absolute Nucleated RBC 0.000 (0.0-0.012) X10*3/uL Nucleated RBC % (auto) 0.0 (0.0-0.2) /100WBC Sodium 139 (135-145) mmol/L Potassium 4.5 D (3.3-5.1) mmol/L Chloride 107 (96-108) mmol/L Carbon Dioxide 23 (22-29) mmol/L Anion Gap 14 (12-20) BUN 8 L (9-16) mg/dL Creatinine 0.67 (0.5-1.4) mg/dL Estim Creat Clear Calc 93.8 Estimated GFR > 60 Random Glucose 89 (60-115) mg/dL Lactic Acid 1.0 (0.5-2.0) mmol/L Calcium 9.6 (8.4-10.2) mg/dL Magnesium 2.0 (1.6-2.6) mg/dL Total Bilirubin 0.4 (0.0-1.0) mg/dL Direct Bilirubin 0.2 (0.0-0.5) mg/dL AST 17 (5-31) U/L ALT 14 (0-31) U/L Total Creatine Kinase 51 (26-140) U/L Total Protein 7.4 (6.5-8.0) g/dL Albumin 4.8 (3.5-5.0) g/dL Beta HCG, Quant < 2 mIU/mL Urine Opiates Screen Not Detected (Not Detect) Ur Buprenorphine Scrn Not Detected (Not Detect) ng/mL Ur Oxycodone Screen Not Detected (Not Detect) ng/mL Urine Methadone Screen Not Detected (Not Detect) ng/mL Urine Fentanyl Screen Not Detected (Not Detect) Ur Barbiturates Screen POSITIVE H (Not Detect) Ur Phencyclidine Scrn Not Detected (Not Detect) Ur Amphetamines Screen Not Detected (Not Detect) U Benzodiazepines Scrn Not Detected (Not Detect) Urine Cocaine Screen Not Detected (Not Detect) U Marijuana (THC) Screen Not Detected (Not Detect) Discharge Plan Discharge Clinical Impression: Psychogenic nonepileptic seizure Patient Disposition: Home, Self-Care Instructions: Conversion Disorder (ED) Additional Instructions: You were seen in the emergency department today. Your blood work was reassuring. It is unclear what is causing you to have the symptoms therefore it is very important that you follow-up with your primary care physician as well as your neurologist. If any new or worsening symptoms occur including but not limited to changes in behavior, severe chest pain or shortness for breath, please seek emergent care. Prescriptions: No Action ondansetron 4 mg tablet,disintegrating 4 mg PO Q8H 3 Days Qty: 9 0RF cgufthttrz-qtfenfsrgavte-hbfu [Fioricet] 50-300-40 mg capsule 1 cap PO TID PRN (Reason: pain) Qty: 14 0RF ketorolac 10 mg tablet 10 mg PO Q8H PRN (Reason: pain) Qty: 10 0RF Rx Instructions: Do not use NSAIDs with this medication benzonatate 150 mg capsule 150 mg PO TID PRN (Reason: cough) Qty: 14 0RF rwdfipouul-ljlkqepjdqbnn-sils 50-325-40 mg tablet 1 tab PO Q6H PRN (Reason: haeadace) Qty: 20 0RF Interventions: ED Discharge Assessment Last Done: 09/01/24 17:34 Discharge Date/Time: 09/01/24 17:35 Print Language: Vietnamese
[2024-09-01 15:36] LABS: MANUAL DIFF FLAG NO
[2024-09-01 15:38] LABS: Basophils Percent Auto 0.2 % (0-2); Eosinophils Absolute Auto 0.2 X10*3/uL (0.0-0.4); Eosinophils Percent Auto 1.7 % (0-4); Hemoglobin 13.3 g/dl (12.0-16.0); Imm Gran Abs Auto 0.02 X10*3/uL (0.00-0.03); Imm Gran Pct Auto 0.2 % (0.0-0.4); Lymphocytes Absolute Auto 1.1 X10*3/uL (1.2-4.9); Lymphocytes Percent Auto 12.6 % (20-40); Mean Corpuscular Hemoglobin 30.2 pg (27.0-33.0); Mean Corpuscular Volume 86.2 fL (80.0-98.0); Mean Platelet Volume 9.9 fL (9.4-12.3); Monocytes Absolute Auto 0.5 X10*3/uL (0.1-1.2); Monocytes Percent Auto 5.6 % (2-11); Neutrophils Percent Auto 79.7 % (45-73); Platelet Count 286 X10*3/uL (160-400); Red Blood Count 4.41 X10*6/uL (4.20-5.50); Red Cell Distribution Width 12.1 % (11.0-16.0); White Blood Count 8.7 X10*3/uL (4.8-10.8)
[2024-09-01 15:58] LABS: Alanine Aminotransferase 14 U/L (0-31); Albumin Level 4.8 g/dL (3.5-5.0); Anion Gap 14 (12-20); Aspartate Amino Transferase 17 U/L (5-31); Bilirubin Direct 0.2 mg/dL (0.0-0.5); Bilirubin Total 0.4 mg/dL (0.0-1.0); Blood Urea Nitrogen 8 mg/dL (9-16); Calcium 9.6 mg/dL (8.4-10.2); Carbon Dioxide 23 mmol/L (22-29); Chloride 107 mmol/L (96-108); Creatinine Clr Calc Pharmacy 93.8; Estimated Glomerular Filt Rate > 60; Glucose Random 89 mg/dL (60-115); Potassium 4.5 mmol/L (3.3-5.1); Sodium 139 mmol/L (135-145); Total Protein 7.4 g/dL (6.5-8.0)
[2024-09-01 16:06] LABS: Amphetamine Screen Urine Not Detected (Not Detect); Barbiturates, Urine POSITIVE (Not Detect); Benzodiazepines Screen Urine Not Detected (Not Detect); Buprenorphine Scr Not Detected (Not Detect); Cannabinoid Screen Urine Not Detected (Not Detect); Cocaine Screen Urine Not Detected (Not Detect); Fentanyl, urine Not Detected (Not Detect); Methadone Screen, Urine Not Detected (Not Detect); Opiate Screen Urine Not Detected (Not Detect); Oxycodone Screen Urine Not Detected (Not Detect); Phencyclidine Screen Urine Not Detected (Not Detect)
[2024-09-01 16:07] VITALS: BP 92/58; PULSE 76; RESP 18; TEMP 36.6; O2SAT 97
[2024-09-01 16:31] LABS: HCG Quantitative < 2 mIU/mL
--- NOTE | 2024-09-01 16:54 | PC.NURSE ---
Attempted to discharge patient and patient was noted to be catatonic again. Provider notified.
[2024-09-01] MEDS: LORazepam 1 MG TABLET PO (17:29)
[2024-09-01 17:34] VITALS: BP 92/58; PULSE 76; RESP 18; TEMP 36.6; O2SAT 97
[2024-09-01 18:43] LABS: Alkaline Phosphatase 52 U/L (39-117)
== END 2024-09-01 17:35 | disposition home or self-care (01) ==
PROVIDERS: Physician Assistant Medical; Emergency Provider Emergency Medicine; PCP Emergency Medicine
DX: R56.9 Unspecified convulsions (principal); Z79.899 Other long term (current) drug therapy
CPT/HCPCS: 36415; 80048; 80076; 80184; 80307; 82550; 83605; 83735; 84702; 85025; 99284

== ENCOUNTER 2024-09-26 14:16 | Outpatient (REF) | payer OTHER, SELFPAY ==
[2024-09-26 17:39] LABS: Hematocrit 37.0 % (37.0-47.0); Hemoglobin 12.7 g/dl (12.0-16.0); Mean Corpuscular HGB Conc 34.3 g/dl (31.0-35.0); Mean Corpuscular Hemoglobin 30.0 pg (27.0-33.0); Mean Corpuscular Volume 87.3 fL (80.0-98.0); NRBC Abs Auto 0.000 X10*3/uL (0.0-0.012); NRBC Pct Auto 0.0 /100WBC (0.0-0.2); Platelet Count 307 X10*3/uL (160-400); Red Blood Count 4.24 X10*6/uL (4.20-5.50); White Blood Count 6.4 X10*3/uL (4.8-10.8)
[2024-09-26 17:52] LABS: Hemoglobin A1C 118.2903 umol/L; Total Hemoglobin (HGBA1C) 3333.6775 umol/L
[2024-09-26 18:07] LABS: Alanine Aminotransferase 14 U/L (0-31); Albumin Level 5.0 g/dL (3.5-5.0); Alkaline Phosphatase 49 U/L (39-117); Anion Gap 12 (12-20); Aspartate Amino Transferase 15 U/L (5-31); Blood Urea Nitrogen 8 mg/dL (9-16); Calcium 9.5 mg/dL (8.4-10.2); Carbon Dioxide 26 mmol/L (22-29); Chloride 104 mmol/L (96-108); Estimated Glomerular Filt Rate > 60; Iron 97 mcg/dL (30-160); Percent Iron Saturation 32 % (15-50); Potassium 4.2 mmol/L (3.3-5.1); Sodium 138 mmol/L (135-145); Total Iron Binding Capacity 307 mcg/dL (228-428); Total Protein 7.6 g/dL (6.5-8.0); Unsaturated Iron Binding 210 ug/dL
[2024-09-26 18:23] LABS: Ferritin 28 ng/mL (10-122)
[2024-09-26 18:35] LABS: Folate 11.5 ng/mL (> or = 4.0); Vitamin B12 260 pg/mL (200-900)
== END 2024-09-26 14:17 | disposition home or self-care (01) ==
LOC: HO.HKASLDS 14:16
PROVIDERS: PCP Internal Medicine; Visit Provider Physician Assistant Medical
DX: G47.19 Other hypersomnia (principal); M54.50 Low back pain, unspecified
CPT/HCPCS: 36415; 80053; 82306; 82607; 82728; 82746; 83036; 83540; 83921; 84443; 85027; 99202

== ENCOUNTER 2024-09-26 14:16 | Outpatient (AMB) | payer OTHER, SELFPAY ==
--- OUTSIDE RECORDS SUMMARY | 2024-09-26 14:48 | XMS_ITS | Encounter Summary ---
Author Organization [facility] Address [address] [place] [address] Care Team Providers Care Woods Overseer Name Role Phone Latesha France MD Primary Care Provider Reason for Visit * Reason Onset Date Comments Hypotension 03/19/2024 Encounter Details Date Type Department Care Team (Late st Contact Info) Description 03/19/2024 Nurse Triage Adult Medicine [address] [phone] Latesha France MD [address] [place] [phone] Hypotension Social History Tobacco Use Types Packs/Day [...] traveled recently to another state outside of [place], [place], [place], [place], [place], [place], [place]? no o If yes, did you quarantine [...] yes, gather 3rd libertarian insurance information Third Libertarian Information: not applicable PCP: Latesha France MD Payor: [employer] PLAN / Plan: [employer] MEDICAID / Product Type: *No Product type* / documented in this encounter Plan of Treatment Upcoming Encounters Date Type Department Care Team (Late st Contact Info) Description 10/02/2024 2:30 PM EDT Office Visit Adult Medicine [address] [phone] Latesha France MD [address] [place] [address] 11/21/2024 2:00 PM EDT Clinical Support Obstetrics and Gynecology - [address] [phone] 03/22/2025 3:00 PM EST Office Visit Adult [address] [phone] Latesha France MD [address] [place] [address] documented as of this encounter Visit Diagnoses Not on filedocumented in this encounter Additional Health Concerns Infection Onset Date Last Indicated Resolved Time Respiratory Rule-Out 05/22/2024 05/22/2024 025 7:00 PM EST C. difficile Rule-Out 05/23/2024 05/22/20242024 4:54 PM EST documented as of this encounter Care Teams Woods Overseer Relationship Specialty Start Date End Date Latesha France MD [address] [place] [address] PCP - General Internal Medicine 02/13/24 documented as of this encounter
--- NOTE | 2024-09-26 15:04 | MHC.OFFVIS ---
Vital Signs 09/26/24 15:05 Height 5 ft Weight 105 lb 8 oz BMI 20.6 Pulse 74 Pulse Source Pulse Oximeter Pulse Oximetry (%) 100 Oxygen Delivery Method Room Air Intake Visit Reasons: ENP - Insomnia Intake Note: Patient presents [employer] Insomnia. Patient just diagnosed with seizures. Patient states pain to almost to pass out. patient hard time falling asleep. pain/jultz and wakes her up. no signs of apnea up but does having choking at times. Patient states sleep study booked for 10/04 with sleep medicine. Accompanied by: Spouse Allergies No Known Allergies Allergy (Verified 09/26/24 15:08) HPI Comments Details: 24 year old female is here for seizure disorder being followed by Dr. Bravo's office. She has sleep apnea. October 01 EEG was completed, will f/u with Dr. Bravo for Seizure like disorder which started in June 2024, with passing out, on September 21 went to [facility] with EMT, 1:00AM, had a complete work up, she was shaking, felt cold and passed out for 30-40min. She has anemia and her blood sugar was low. She has chronic migraines and takes Ibuprofen, 600mg along with tylenol 325mg po and this helps. Usually frontal to parietal and migrates with a throbbing pain 4/10. She has photophobia, phonophobia with n/v/diarrhea. She has balance difficulties and gait is off, with dizziness, vertigo, room spins then vasovagal syncope due to stress inducing factor. She has Fiorect TID as needed for migraines. For leg pain she has acetaminophen and Gabapentin 100mg BID. Seizure like disorders she was started on Phenobarbital 30mg po by Dr. Bravo and today her BP in clinic is 92/58, not her normal. She stopped taking propanolol stopped benzonatate for cough and ketorolac prescribed by her PCP, Dr. France. She takes Zofran as needed. She is seeing a therapist for 2 years now due to personal familial problems. RLS Symptoms her legs start to shake bilaterally, then she gets emotionally stressed out, and a cycle of anxiety with palpitations. She continues to have lower back and upper back pain. Her EKG was normal at [facility] and has a heart monitor from [facility]. EMG/NCS for pain? numbness? FH+ Mom and uncle 35 heart condition, grandma cancer. She does not snore, denies apneas, she coughs and it wakes her up. She has pain when her body jolts or spasms. [facility] Medical History Somatization disorder Personality disorder Conversion disorder with seizures or convulsions Seizure Vasovagal syncope Syncope Sinus tachycardia PTSD (post-traumatic stress disorder) Moderate intellectual disabilities Migraine without status migrainosus, not intractable Menorrhagia with regular cycle Hypotension Insomnia Anxiety Migraine Family History (Updated 09/26/24 @ 19:36 by Martha Rangel MA) Mother Headache Social History Unable to assess alcohol history related to: Unable to respond Patient Tobacco Use Status: Never used Tobacco e-Cigarette/Vaping Use: Never Used Physical Exam Vital Signs: Last Vital Signs Pulse 74 09/26/24 15:05 Pulse Ox 100 09/26/24 15:05 Oxygen Delivery Method Room Air 09/26/24 15:05 BMI result Body Mass Index 20.6 Const General: cooperative, comfortable and no acute distress Nutritional Appearance: average body habitus Orientation/consciousness: patient oriented x3 Eyes Pupils: Equal, round and reactive pupils present Neck Neck: Yes full ROM Resp Effort & Inspection: normal respiratory effort and able to speak in complete sentences Neuro General: patient oriented x3 and moves all extremities Cranial nerves: Yes Facial sensation intact/muscles of mastication intact, Yes Equal, round and reactive pupils present, Yes Normal facial strength present, Yes Midline tongue present, Yes Ability to bilaterally rotate head present and Yes Ability to bilaterally elevate shoulders present Cognition (Neuro): normal cognition Gait exam (Neuro): Normal gait present Motor exam (neuro): 5/5 motor strength present throughout and Normal motor muscle tone present throughout Psych Appearance: grossly normal Speech and movement: Normal speech and movement present Thought process: Normal thought process present Thought content: Normal thought content present Assessment & Plan Assessment & Plan (1) Excessive daytime and night-time sleepiness: Code(s): G47.19 - Other hypersomnia Category: Medical (2) Lumbar pain: Code(s): M54.50 - Low back pain, unspecified Category: Medical Plan HST r/o patricia Labs to r/o nutritional deficiencies and or anemia. Mood is low, anxious, depressed, continue to see your therapist at least once a week. Orders: Orders Vitamin D 25-OH Total 09/26/24 G47.19 - Other hypersomnia, G47.9 - Sleep disorder, unspecified, R53.83 - Other fatigue Vitamin B12 and Folate 09/26/24 G47.19 - Other hypersomnia, G47.9 - Sleep disorder, unspecified, R53.83 - Other fatigue TSH reflex Free T4 09/26/24 G47.19 - Other hypersomnia, G47.9 - Sleep disorder, unspecified, R53.83 - Other fatigue Methylmalonic Acid 09/26/24 G47.19 - Other hypersomnia, G47.9 - Sleep disorder, unspecified, R53.83 - Other fatigue IRON PROFILE 09/26/24 G47.19 - Other hypersomnia, G47.9 - Sleep disorder, unspecified, R53.83 - Other fatigue Homocysteine 10/01/24 G47.19 - Other hypersomnia, G47.9 - Sleep disorder, unspecified, R53.83 - Other fatigue Hemoglobin A1c 09/26/24 G47.19 - Other hypersomnia, G47.9 - Sleep disorder, unspecified, R53.83 - Other fatigue Ferritin 09/26/24 G47.19 - Other hypersomnia, G47.9 - Sleep disorder, unspecified, R53.83 - Other fatigue Comprehensive Met. Panel 09/26/24 G47.19 - Other hypersomnia, G47.9 - Sleep disorder, unspecified, R53.83 - Other fatigue XR lumbar spine 2-3V 10/01/24 M54.50 - Low back pain, unspecified Complete Blood Count no Diff 09/26/24 G47.19 - Other hypersomnia, G47.9 - Sleep disorder, unspecified, R53.83 - Other fatigue Patient Instructions: Sleep Hygiene provided: set a scheduled bedtime and wake time to help regulate the circadian rhythm and balance the release of pituitary hormones. Sleep in a dark room, temperatures below 68 degrees, and no devices n bed. Limit caffeinated products 6 hours prior to bed, and limit fluids 2-4 hours prior to bed. Gentle night yoga, diffusing essential oils, and playing soft music can be relaxing. Coding Level of Care Code New Pt Level 4 (96794) Diagnoses Excessive daytime and night-time sleepiness G47.19 Lumbar pain M54.50 Time Spent (min) 40 Comment Evaluation
[2024-09-26 15:05] VITALS: PULSE 74; O2SAT 100; BMI 20.6
== END 2024-09-26 16:17 | disposition home or self-care (01) ==
LOC: HO.HSMS 14:16
PROVIDERS: PCP Internal Medicine; Visit Provider Physician Assistant Medical
DX: G47.19 Other hypersomnia (principal); M54.50 Low back pain, unspecified
CPT/HCPCS: 99204

== ENCOUNTER 2024-10-01 14:41 | Outpatient (AMB) | payer OTHER, SELFPAY ==
--- NOTE | 2024-10-01 15:10 | A.OFFVIS_ITS ---
Intake Visit Reasons: results Allergies No Known Allergies Allergy (Verified 09/26/24 15:08) HPI Comments Details: 24-year-old woman with chronic stressors related to childhood, symptoms investigated in the past for seizure disorder with negative EEGs,?conversion disorder, and migraine headaches.She was here with her boyfriend. Movement in sleep initially resolved completely with phenobarbital and everything was perfect until this past week. A couple nights this week, she had full body jerk that woke her. On 08/31/2024 and 09/01/2024, she took magnesium and got a strange feeling in her face and throughout her body a few minutes later. She was with her boyfriend and fainted both nights. She was seen at [facility] ER both nights where labs and EKG were apparently okay. She stopped magnesium and was feeling better. No further episodes of fainting. She had report of 30-day cardiac event monitor which showed predominant sinus rhythm with sinus arrhythmia, full report below. She was following with cardiology and had stress test scheduled for next week. She saw her PCP earlier this week who recommended EEG. They were also interested in going to [place] for second opinion in neurology and cardiology. Another EEG at office in August of 2024 was normal. Main issue continues to be night time of sleep time symptoms of jumping or moving that may look like seizures. [facility] Medical History (Updated 10/01/24 @ 15:27 by Lisa Bravo MD) Somatization disorder Personality disorder Conversion disorder with seizures or convulsions Seizure Vasovagal syncope Syncope Sinus tachycardia PTSD (post-traumatic stress disorder) Moderate intellectual disabilities Migraine without status migrainosus, not intractable Menorrhagia with regular cycle Hypotension Insomnia Anxiety Migraine Family History (Updated 09/26/24 @ 19:36 by Martha Rangel MA) Mother Headache Social History (Updated 09/12/24 @ 10:35 by CARLINE Longoria) Unable to assess alcohol history related to: Unable to respond Patient Tobacco Use Status: Never used Tobacco e-Cigarette/Vaping Use: Never Used Physical Exam Neuro Other: Mental Status: Alert and oriented to person, place, and time. Normal attention. Normal spontaneous speech, fluency, and comprehension. No obvious issues with mood and memory. Affect is appropriate. Cranial Nerves: CN II: Visual moss full to confrontation, visual acuity intact. CN III, IV, : Pupils equal, round, reactive to light and accommodation. Extraocular movements are normal. CN V: Facial sensation is normal. CN VII: Facial movements symmetrical. CN VIII: Hearing intact to bedside conversation is normal. CN IX, X: Palate elevates symmetrically. CN XI: Shoulder shrug and head turn symmetrical. CN XII: Tongue midline without atrophy or fasciculations. Motor: Bulk and tone normal in all extremities. No significant muscle weakness in arms and legs. No drift. Reflexes: Deep tendon reflexes 2+ and symmetric. Plantar response down-going bilaterally. Coordination: Tngplz-xa-ojvx and hjtk-wl-dqkq testing normal. No dysmetria. Gait and Station: No obvious gait abnormality. No ataxia or instability. Sensory: Intact to light touch, pinprick, and vibration. Romberg is negative. Extrapyramidal: Full facial expressions and blinking. No rigidity. Movements are appropriate with no tremor or abnormality. Speech: Normal; no dysarthria or tremor. Assessment & Plan Assessment & Plan (1) Somatization disorder: Code(s): F45.0 - Somatization disorder Category: Medical Plan: She was educated about the impact of sometimes childhood emotionally traumatic experiences causing seizure like episodes. Counseling and therapy works the best, provided a good help is available. (2) Migraine without aura: Code(s): G43.009 - Migraine without aura, not intractable, without status migrainosus Category: Medical Qualifiers: Status migrainosus presence: without status migrainosus Intractability: not intractable Qualified Code(s): G43.009 - Migraine without aura, not intractable, without status migrainosus Plan: Not active at this time (3) Sleep disorder: Code(s): G47.9 - Sleep disorder, unspecified Category: Medical Plan: She is asked to try gabapentin 100mg to 300mg one dose at night to see if that would help control sleep time movements Coding Level of Care Code Est Pt Level 5 (54189) Diagnoses Somatization disorder F45.0 Migraine without aura and without status migrainosus, not intractable G43.009 Status migrainosus presence: without status migrainosus Intractability: not intractable Sleep disorder G47.9
--- OUTSIDE RECORDS SUMMARY | 2024-10-01 15:10 | XMS_ITS | Encounter Summary ---
Author Organization [facility] Address [address] [place] [address] Care Team Providers Care Meeting/Event Planner Name Role Phone Latesha France MD Primary Care Provider [phone] Reason for Visit * Reason Onset Date Comments Hypotension 03/19/2024 Encounter Details Date Type Department Care Team (Late st Contact Info) Description 03/19/2024 Nurse Triage Adult Medicine [address] [phone] Latesha France MD [address] [place] [phone] Hypotension Social History Tobacco Use Types Packs/Day [...] traveled recently to another state outside of [place], [place], [place], [place], [place], [place], [place]? no o If yes, did you quarantine [...] gather 3rd alliance party insurance information Third Constitution Party Information: not applicable PCP: Latesha France MD Payor: [employer] PLAN / Plan: [place] MEDICAID / Product Type: *No Product type* / documented in this encounter Plan of Treatment Upcoming Encounters Date Type Department Care Team (Late st Contact Info) Description 10/02/2024 2:30 PM EDT Office Visit Adult Medicine [address] [phone] Latesha France MD [address] [place] [address] 11/21/2024 2:00 PM EDT Clinical Support Obstetrics and Gynecology - [address] [phone] 03/22/2025 3:00 PM EST Office Visit Adult [address] [phone] Latesha France MD [address] [place] [address] documented as of this encounter Visit Diagnoses Not on filedocumented in this encounter Additional Health Concerns Infection Onset Date Last Indicated Resolved Time Respiratory Rule-Out 05/22/2024 05/22/2024 025 7:00 PM EST C. difficile Rule-Out 05/23/2024 05/22/20242024 4:54 PM EST documented as of this encounter Care Teams Meeting/Event Planner Relationship Specialty Start Date End Date Latesha France MD [address] [place] [address] PCP - General Internal Medicine 02/13/24 documented as of this encounter
== END 2024-10-01 15:35 | disposition home or self-care (01) ==
LOC: HO.HSM 14:42
PROVIDERS: PCP Internal Medicine; Visit Provider Psychiatry & Neurology Neurology
DX: F45.0 Somatization disorder (principal); G43.009 Migraine without aura, not intractable, without status migrainosus; G47.9 Sleep disorder, unspecified
CPT/HCPCS: 99214

== ENCOUNTER 2024-10-01 14:41 | Outpatient (REF) | payer OTHER, SELFPAY ==
--- NOTE | ~2024-10-01 | XR_ITS ---
EXAMINATION: XR LUMBOSACRAL SPINE CLINICAL INFORMATION: M54.50 - Low back pain, unspecified COMPARISON: None available. TECHNIQUE: Three views of the lumbosacral spine. FINDINGS: There are 5 nonrib-bearing lumbar segments. Vertebral body height and alignment is preserved. Disc spaces are preserved. XR/XR lumbar spine 2-3V IMPRESSION: Within normal limits Electronically signed by: Ion Street MD 10/01/2024 04:25 PM EDT
== END 2024-10-01 14:42 | disposition home or self-care (01) ==
LOC: HO.XRAY 14:41
PROVIDERS: Physician Assistant Medical; PCP Internal Medicine; Visit Provider Psychiatry & Neurology Neurology
DX: G43.009 Migraine without aura, not intractable, without status migrainosus (principal); F45.0 Somatization disorder; G47.19 Other hypersomnia; R53.83 Other fatigue; M54.50 Low back pain, unspecified
CPT/HCPCS: 36415; 72100; 83090; 99212

== ENCOUNTER → 2024-10-01 16:07 | Outpatient (BNV) | payer OTHER, SELFPAY | PROVIDERS: PCP Internal Medicine; Visit Provider Radiology Diagnostic Radiology | DX: M54.50 Low back pain, unspecified (principal) | CPT/HCPCS: 72100 ==

== ENCOUNTER 2024-10-24 15:05 | Emergency (ER) | payer OTHER, SELFPAY ==
--- NOTE | 2024-10-24 15:09 | ECG_ITS ---
Test Reason : ? SEIZURE Blood Pressure : */* mmHG Vent. Rate : 96 BPM Atrial Rate : 96 BPM P-R Int : 106 ms QRS Dur : 58 ms QT Int : 322 ms P-R-T Axes : 67 34 70 degrees QTcB Int : 406 ms Sinus rhythm with sinus arrhythmia with short MI Junctional ST depression, probably normal Borderline ECG When compared with ECG of 01-Sep-2024 02:28, No significant change was found Referred By: Juan Landa Electronically Signed By: YU JEAN MD
[2024-10-24 15:15] LABS: Glucose, Whole Blood 124 mg/dL (60-115)
[2024-10-24 15:26] VITALS: BP 107/71; PULSE 85; RESP 18; TEMP 36.6; O2SAT 100; BMI 22.4
[2024-10-24 15:29] LABS: MANUAL DIFF FLAG NO
[2024-10-24 15:31] LABS: Hematocrit 37.8 % (37.0-47.0); Hemoglobin 13.3 g/dl (12.0-16.0); Imm Gran Abs Auto 0.02 X10*3/uL (0.00-0.03); Imm Gran Pct Auto 0.2 % (0.0-0.4); Lymphocytes Absolute Auto 1.9 X10*3/uL (1.2-4.9); Mean Corpuscular HGB Conc 35.2 g/dl (31.0-35.0); Mean Corpuscular Hemoglobin 30.0 pg (27.0-33.0); Mean Corpuscular Volume 85.3 fL (80.0-98.0); NRBC Abs Auto 0.000 X10*3/uL (0.0-0.012); NRBC Pct Auto 0.0 /100WBC (0.0-0.2); Platelet Count 309 X10*3/uL (160-400); Red Blood Count 4.43 X10*6/uL (4.20-5.50); White Blood Count 8.6 X10*3/uL (4.8-10.8)
--- NOTE | 2024-10-24 15:31 | ED_ITS ---
HPI - General Adult General Chief complaint: General Medical Stated complaint: Passed out Time Seen by Provider: 10/24/24 15:31 Source: patient Mode of arrival: other (private car) Limitations: no limitations History of Present Illness ED Provider: HPI narrative: Patient presented to emergency department via private vehicle and was taken out of the vehicle by nurses placed in the room with reports of a seizure, initially patient was unresponsive and shaking, she came to with jaw thrust maneuver, she was checked for hypoglycemia, her vital signs remained stable. Related Data Home Medications ?Medication ?Instructions ?Recorded ?Confirmed adapalene 0.1 % topical gel 1 appl topical BEDTIME benzoyl peroxide 2.5 % topical 1 appl topical BID 08/26 11/19 cleanser dicyclomine 10 mg capsule 10 mg PO QID 09/12/24 fluticasone propionate 50 2 spray intranasal DAILY mcg/actuation nasal spray,suspension propranolol 10 mg tablet 10 mg PO ONCE 09/12/24 triamcinolone acetonide 0.1 % 1 appl topical BID 09/12 topical cream Previous Rx's ?Medication ?Instructions ?Recorded ondansetron 4 mg disintegrating 4 mg PO Q8H 3 days #9 tabs 06/18/23 tablet cxgvqbwbce-cacljlgkdkgzd-vqkugiuj 1 cap PO TID PRN tashia n #14 caps 06/19/23 50 mg-300 mg-40 mg capsule (Fioricet) ketorolac 10 mg tablet 10 mg PO Q8H PRN pain #10 ta bs 06/19/23 benzonatate 150 mg capsule 150 mg PO TID PRN cough #14 caps 09/27/23 cholecalciferol (vitamin D3) 25 25 mcg PO DAILY insuff icient 09/27/24 mcg (1,000 unit) capsule vitamin D 3 months #90 caps kcwcbskjds-qmiomgpvlsdfk-raqcaeik 1 tab PO Q6H PRN hae adace #20 tabs 10/03/24 50 mg-325 mg-40 mg tablet ferrous sulfate 325 mg (65 mg 325 mg PO DAILY low ferr itin 60 10/03/24 iron) tablet days #60 tabs mecobalamin (vitamin B12) 1,000 1,000 mcg PO DAILY low b12 3 10/03/24 mcg chewable tablet months #90 tabs Allergies Allergy/AdvReac Type Severity Reaction Status Date / Time No Known Allergies Allergy Verified 10/24/24 15:28 Review of Systems 2 Constitutional: Constitutional: Reports as per HPI [facility] Past Medical History Medical History Somatization disorder Personality disorder Conversion disorder with seizures or convulsions Seizure Vasovagal syncope Syncope Sinus tachycardia PTSD (post-traumatic stress disorder) Moderate intellectual disabilities Migraine without status migrainosus, not intractable Menorrhagia with regular cycle Hypotension Insomnia Anxiety Migraine Family History Family History (Updated 09/26/24 @ 19:36 by Martha Rangel MA) Mother Headache Social History Social History Unable to assess alcohol history related to: Unable to respond Alcohol intake: never Patient Tobacco Use Status: Never used Tobacco Smoked in Last 30 Days: No e-Cigarette/Vaping Use: Never Used Use of substances other than those prescribed or required for medical reasons: No Advance Directives: No Advance Directives Information Provided: Yes Do you have a plan to hurt others: No Plan Physical Exam ED Vital Signs: Vital Signs - 24 hr 10/24/24 15:26 Temperature 98 F Pulse Rate 85 Respiratory Rate 18 Blood Pressure 107/71 Pulse Oximetry 100 BMI result Body Mass Index 22.4 Const Other: * Gen: ?Below exam is once patient's nonepileptic seizure has resolved, patient is well-appearing * HEENT: PERRLA, EOMI, MMM, * Neck: Supple, no LAD * CV: RRR, no obvious murmurs appreciated * Resp: ?No wheezing rales rhonchi no stridor moving air well * Abd: ?Bowel sounds are present, no tenderness no rebound no rigidity * MSK: FROM, strength 5/5 all extremities * Skin: Warm, dry, intact, * Neuro: ?Alert and oriented x3, moving upper and lower extremities symmetrically, no obvious facial asymmetry noted * Psych; no SI or HI Medications Administered Discontinued Medications Generic Name Dose Route Start Last Admin Trade Name Freq PRN Reason Stop Dose Admin Diazepam 2.5 mg 10/24/24 15:32 10/24/24 15:48 Diazepam 10 Mg/2 Ml Cartridge IVPUSH 10/24/24 15:33 2.5 mg STAT STA Administration Medical Decision Making Medical Decision Making MDM Narrative: Patient presented with concerns for seizure, bedside evaluation and some verbal deescalation patient came to herself without neurologic deficits, she has been here multiple times for this before, not endorsing HI or SI, I did make sure at bedside that she is not having any respiratory compromise abnormal vital signs or hypoglycemia did not feel further imaging such as CT or ECG as indicated has been done worse times before. At the provide IV Valium for her significant anxiety, no drug or alcohol use reported Differential Diagnosis Differential Diagnoses: The differential diagnosis associated with the presentation includes (Seizure, nonepileptic seizure, hypoglycemia, electrolyte derangements,) Lab Data [facility] Lab Attestation statement: I reviewed the patient's lab results. 10/24/24 15:25 10/24/24 15:25 Labs: Lab Results 10/24/24 10/24/24 Range/Units 15:12 15:25 WBC 8.6 (4.8-10.8) X10*3/uL RBC 4.43 (4.20-5.50) X10*6/uL Hgb 13.3 (12.0-16.0) g/dl Hct 37.8 (37.0-47.0) % MCV 85.3 (80.0-98.0) fL MCH 30.0 (27.0-33.0) pg MCHC 35.2 H (31.0-35.0) g/dl RDW 12.5 (11.0-16.0) % Plt Count 309 (160-400) X10*3/uL MPV 10.1 (9.4-12.3) fL Immature Gran % (Auto) 0.2 (0.0-0.4) % Neut % (Auto) 68.2 (45-73) % Lymph % (Auto) 21.8 (20-40) % Hudspeth % (Auto) 5.9 (2-11) % Eos % (Auto) 3.6 (0-4) % Baso % (Auto) 0.3 (0-2) % Lymph # (Auto) 1.9 (1.2-4.9) X10*3/uL Hudspeth # (Auto) 0.5 (0.1-1.2) X10*3/uL Eos # (Auto) 0.3 (0.0-0.4) X10*3/uL Baso # (Auto) 0.0 (0.0-0.2) X10*3/uL Abs Immat Gran (auto) 0.02 (0.00-0.03) X10*3/uL Absolute Neuts (auto) 5.9 (2.0-8.3) x10*3/uL Absolute Nucleated RBC 0.000 (0.0-0.012) X10*3/uL Nucleated RBC % (auto) 0.0 (0.0-0.2) /100WBC Sodium 140 (135-145) mmol/L Potassium 4.1 (3.3-5.1) mmol/L Chloride 109 H (96-108) mmol/L Carbon Dioxide 22 (22-29) mmol/L Anion Gap 13 (12-20) BUN 9 (9-16) mg/dL Creatinine 0.66 (0.5-1.4) mg/dL Estim Creat Clear Calc 90.4 Estimated GFR > 60 POC Glucose 124 H (60-115) mg/dL Random Glucose 131 H (60-115) mg/dL Calcium 9.5 (8.4-10.2) mg/dL Magnesium 2.0 (1.6-2.6) mg/dL Total Bilirubin 0.4 (0.0-1.0) mg/dL AST 20 (5-31) U/L ALT 25 (0-31) U/L Alkaline Phosphatase 51 (39-117) U/L Total Creatine Kinase 51 (26-140) U/L Total Protein 7.5 (6.5-8.0) g/dL Albumin 4.8 (3.5-5.0) g/dL Lipase 26 (8-78) U/L Beta HCG, Quant < 2 mIU/mL Discharge Plan Discharge Clinical Impression: Psychogenic nonepileptic seizure Patient Disposition: Home, Self-Care Additional Instructions: You have nonepileptic seizures, continue to work with the therapist, possibly need you medications adjusted but remember this is the way your body deals with stress, and when this happens you can just stay by the patient at home, making sure that this episode passes She has had multiple ER visits, significant workup in the past Prescriptions: No Action cholecalciferol (vitamin D3) 25 mcg (1,000 unit) capsule 25 mcg PO DAILY MDD 1000 unit 90 Days Qty: 90 0RF Rx Instructions: take one capsule daily by mouth at bedtime. mecobalamin (vitamin B12) 1,000 mcg tablet,chewable 1,000 mcg PO DAILY MDD 1000mcg 90 Days Qty: 90 0RF Rx Instructions: take one tablet of chewable 1000mcg b12 by mouth at bedtime. oznetaajtr-qiotidiqoqlfp-pjys 50-325-40 mg tablet 1 tab PO Q6H PRN (Reason: haeadace) Qty: 20 0RF ferrous sulfate 325 mg (65 mg iron) tablet 325 mg PO DAILY MDD 325mg 60 Days Qty: 60 1RF Rx Instructions: take one 325mg tablet daily with orange juice at lunch time. If you feel constipated, you may decrease to 3-4 x per week. ondansetron 4 mg tablet,disintegrating 4 mg PO Q8H 3 Days Qty: 9 0RF rhliougoyp-auramxivsuhmz-ayxp [Fioricet] 50-300-40 mg capsule 1 cap PO TID PRN (Reason: pain) Qty: 14 0RF ketorolac 10 mg tablet 10 mg PO Q8H PRN (Reason: pain) Qty: 10 0RF Rx Instructions: Do not use NSAIDs with this medication benzonatate 150 mg capsule 150 mg PO TID PRN (Reason: cough) Qty: 14 0RF triamcinolone acetonide 0.1 % cream 1 appl topical BID propranolol 10 mg tablet 10 mg PO ONCE fluticasone propionate 50 mcg/actuation spray,suspension 2 spray intranasal DAILY Rx Instructions: administer into each nostril dicyclomine 10 mg capsule 10 mg PO QID adapalene 0.1 % gel 1 appl topical BEDTIME benzoyl peroxide 2.5 % cleanser 1 appl topical BID Print Language: Israeli
[2024-10-24 15:47] LABS: Alanine Aminotransferase 25 U/L (0-31); Albumin Level 4.8 g/dL (3.5-5.0); Alkaline Phosphatase 51 U/L (39-117); Anion Gap 13 (12-20); Aspartate Amino Transferase 20 U/L (5-31); Blood Urea Nitrogen 9 mg/dL (9-16); Calcium 9.5 mg/dL (8.4-10.2); Carbon Dioxide 22 mmol/L (22-29); Chloride 109 mmol/L (96-108); Creatinine Clr Calc Pharmacy 90.4; Estimated Glomerular Filt Rate > 60; Lipase 26 U/L (8-78); Magnesium 2.0 mg/dL (1.6-2.6); Potassium 4.1 mmol/L (3.3-5.1); Sodium 140 mmol/L (135-145); Total Protein 7.5 g/dL (6.5-8.0)
[2024-10-24] MEDS: diazePAM 10 MG/2 ML CARTRIDGE 2.5 MG IVPUSH (15:48)
--- OUTSIDE RECORDS SUMMARY | 2024-10-24 16:19 | XMS_ITS | Encounter Summary ---
Author Organization [facility] Address [address] [place] [address] Care Team Providers Care Archaeology Professor Name Role Phone Latesha France MD Primary Care Provider Reason for Visit * Reason Onset Date Comments Hypotension 03/19/2024 Encounter Details Date Type Department Care Team (Late st Contact Info) Description 03/19/2024 Nurse Triage Adult Medicine [address] [phone] Latesha France MD [address] [place] [id number] Hypotension Social History Tobacco Use Types Packs/Day [...] traveled recently to another state outside of [place], [place], [place], [place], [place], [place], [place]? no o If yes, did you [...] of accident/Injury: No If yes, gather 3rd constitution party insurance information Third Republican Information: not applicable PCP: Latesha France MD Payor: [employer] PLAN / Plan: [employer] MEDICAID / Product Type: *No Product type* / documented in this encounter Plan of Treatment Upcoming Encounters Date Type Department Care Team (Late st Contact Info) Description 11/20/2024 3:00 PM EDT Clinical Support Obstetrics and Gynecology [address] [phone] 03/22/2025 3:00 PM EST Office Visit Adult Medicine [address] [phone] Latesha France MD [address] [place] [phone] documented as of this encounter Visit Diagnoses Not on filedocumented in this encounter Additional Health Concerns Infection Onset Date Last Indicated Resolved Time Respiratory Rule-Out 05/22/2024 05/22/2024 025 7:00 PM EST C. difficile Rule-Out 05/23/2024 05/22/20242024 4:54 PM EST documented as of this encounter Care Teams Archaeology Professor Relationship Specialty Start Date End Date Latesha France MD [address] [place] [address] PCP - General Internal Medicine 02/13/24 documented as of this encounter
--- NOTE | 2024-10-24 17:07 | PC.NURSE ---
Per provider after assessing patient upon her arrival no need to draw lactic, cancel lactic order entered per lab request
[2024-10-24 17:09] LABS: Cancel Lactic Acid Canceled
--- NOTE | 2024-10-24 17:12 | PC.NURSE ---
With patients permission [facility] [phone] updated on patients condition
[2024-10-24 17:13] VITALS: BP 107/71; PULSE 85; RESP 18; TEMP 36.6; O2SAT 100
== END 2024-10-24 17:13 | disposition home or self-care (01) ==
PROVIDERS: Physician Assistant; Emergency Provider Emergency Medicine; PCP Internal Medicine
DX: G40.409 Other generalized epilepsy and epileptic syndromes, not intractable, without status epilepticus (principal); R40.4 Transient alteration of awareness; Z79.899 Other long term (current) drug therapy
CPT/HCPCS: 36415; 80053; 82550; 82947; 83690; 83735; 84702; 85025; 93005; 96374; 99284; J3360

== ENCOUNTER → 2024-10-24 15:09 | Outpatient (BNV) | payer OTHER, SELFPAY | PROVIDERS: Emergency Provider Emergency Medicine; PCP Internal Medicine; Visit Provider Internal Medicine Cardiovascular Disease | DX: R56.9 Unspecified convulsions (principal) | CPT/HCPCS: 93010 ==

== ENCOUNTER 2024-11-01 14:56 | Emergency (ER) | payer OTHER, SELFPAY ==
--- NOTE | ~2024-11-01 | XR_ITS ---
EXAMINATION: XR HAND 3 OR MORE VIEWS LEFT HISTORY: pain and swelling, ? FB COMPARISON: There are no prior studies available for comparison. FINDINGS: Three views of the left hand are submitted. Osseous mineralization is normal. There is no fracture or dislocation. The joint spaces are preserved. There is dorsal soft tissue swelling. No radiopaque foreign body is identified. XR/XR hand LT min 3V IMPRESSION: Dorsal soft tissue swelling. No radiopaque foreign body is identified. Electronically signed by: Paulino Man MD 11/01/2024 03:43 PM EDT
[2024-11-01 15:25] VITALS: BP 147/73; PULSE 94; RESP 16; TEMP 36.3; O2SAT 99; BMI 22.0
--- NOTE | 2024-11-01 15:25 | ED.GENADULT ---
HPI - General Adult General Chief complaint: Extremity Injury, Upper Stated complaint: l hand issues Time Seen by Provider: 11/01/24 18:21 Source: patient Mode of arrival: ambulatory Limitations: no limitations History of Present Illness ED Provider: Zackary JONES HPI narrative: The patient is a 24-year-old female presenting to the ED reporting on Tuesday of last week (10/24/2024) she had a routine blood draw of the left hand, since that time she has had worsening swelling, ecchymosis, and pain of the dorsum of the left hand. Patient reports she was seen at [facility] and prescribed analgesics, reports she has been applying ice and elevating the hand. The patient also reports taking intermittent Tylenol and ibuprofen as needed for pain. The patient reports symptoms have dramatically improved however have not fully resolved and she returns to the ED for re-evaluation. Patient denies any associated warmth, drainage, fever/chills, nausea, vomiting, or other systemic complaint, denies any proximally advancing symptoms. Related Data Home Medications ?Medication ?Instructions ?Recorded ?Confirmed adapalene 0.1 % topical gel 1 appl topical BEDTIME 09/12/24 benzoyl peroxide 2.5 % topical 1 appl topical BID 09/12/24 cleanser dicyclomine 10 mg capsule 10 mg PO QID 09/12/24 fluticasone propionate 50 2 spray intranasal DAILY 09/12/24 mcg/actuation nasal spray,suspension propranolol 10 mg tablet 10 mg PO ONCE 09/12/24 triamcinolone acetonide 0.1 % 1 appl topical BID 09/12/24 topical cream Previous Rx's ?Medication ?Instructions ?Recorded ondansetron 4 mg disintegrating 4 mg PO Q8H 3 days #9 tabs 06/18/23 tablet llkrhunqry-qghjgkxplxbag-ndmgoijg 1 cap PO TID PRN pain #14 caps 06/19/23 50 mg-300 mg-40 mg capsule (Fioricet) ketorolac 10 mg tablet 10 mg PO Q8H PRN pain #10 tabs 06/19/23 benzonatate 150 mg capsule 150 mg PO TID PRN cough #14 caps 09/27/23 cholecalciferol (vitamin D3) 25 25 mcg PO DAILY insufficient 09/27/24 mcg (1,000 unit) capsule vitamin D 3 months #90 caps zasxfuxykf-wagnagfxqwqxk-sdebfyux 1 tab PO Q6H PRN haeadace #20 tabs 10/03/24 50 mg-325 mg-40 mg tablet ferrous sulfate 325 mg (65 mg 325 mg PO DAILY low ferritin 60 10/03/24 iron) tablet days #60 tabs mecobalamin (vitamin B12) 1,000 1,000 mcg PO DAILY low b12 3 10/03/24 mcg chewable tablet months #90 tabs gabapentin 100 mg capsule See Rx Instructions PO BEDTIME 30 10/26/24 days #90 caps acetaminophen 500 mg capsule 1,000 mg (2 x 500 mg) PO .q8 PRN 11/01/24 fever or pain #30 caps ibuprofen 600 mg tablet 600 mg PO Q8H PRN fever or pain 11/01/24 #30 tabs Allergies Allergy/AdvReac Type Severity Reaction Status Date / Time No Known Allergies Allergy Verified 11/01/24 15:28 Review of Systems Review of Systems: Yes all other systems are reviewed and are negative ON LICENSE OF [facility] Past Medical History Medical History Somatization disorder Personality disorder Conversion disorder with seizures or convulsions Seizure Vasovagal syncope Syncope Sinus tachycardia PTSD (post-traumatic stress disorder) Moderate intellectual disabilities Migraine without status migrainosus, not intractable Menorrhagia with regular cycle Hypotension Insomnia Anxiety Migraine Family History Family History (Updated 09/26/24 @ 19:36 by Martha Rangel MA) Mother Headache Social History Social History Unable to assess alcohol history related to: Unable to respond Alcohol intake: never Patient Tobacco Use Status: Never used Tobacco e-Cigarette/Vaping Use: Never Used Advance Directives: No Advance Directives Information Provided: No Physical Exam ED Exam Exam: CONSTITUTIONAL: The patient appears non-toxic, well nourished and in no acute distress. Vital signs as documented. HEAD: Atraumatic, normocephalic. EYES: EOMs grossly intact, pupils equal, conjunctiva clear, no exudate. ENT: Nares patent, no discharge. Airway patent, no audible stridor, visible mucosa is pink and moist without noted lesions. NECK: trachea is midline, no obvious masses or gross abnormalities. CHEST: Symmetric movement, normal appearance. LUNGS: Non-labored work of breathing. CARDIAC: No evidence of hypoperfusion. ABDOMEN: Nondistended, no obvious injury. : Deferred. EXTREMITIES: The dorsum of the left hand is noted to have skin discoloration consistent with healing ecchymosis/hematoma. There is no open skin wound, no drainage, no warmth, or erythema. There is mildly painful but otherwise full range of motion of the digits, capillary refill intact throughout, left forearm reveals no tenderness, erythema or other acute findings, soft compartments. Moves all other extremities spontaneously without reported pain. No other obvious injury or deformity noted. NEURO: Alert and oriented x3, CN II-XII appear grossly intact. Cerebellar Functioning grossly intact. Speech clear and appropriate. SKIN: Warm, dry, color appropriate. No rashes or lesions noted. Vital Signs: Vital Signs - 24 hr 11/01/24 15:25 Temperature 97.4 F Pulse Rate 94 Respiratory Rate 16 Blood Pressure 147/73 H Pulse Oximetry 99 Oxygen Delivery Method Room Air BMI result Body Mass Index 22.0 Course Course Course Narrative: This is a rapid medical exam performed by Larry Perez NP: Additional HPI, ROS, PE not included below will be deferred to primary provider. Patient is a 24-year-old female with history of migraines, seizure disorder presenting to the ED with complaint of left hand pain and swelling. States symptoms began after a blood draw while she was here on 10/24/24. Mild swelling with ecchymosis to left dorsal hand, 2+ radial pulse, capillary refill <3 seconds. Medications Administered Discontinued Medications Generic Name Dose Route Start Last Admin Trade Name Freq PRN Reason Stop Dose Admin Ibuprofen 600 mg 11/01/24 18:32 11/01/24 18:54 Ibuprofen 600 Mg Tablet PO 11/01/24 18:33 600 mg ONCE ONE Administration Medical Decision Making Medical Decision Making [facility] Narrative: 6:43 PM 11/01/2024 (David JONES): Patient is a 24-year-old female presenting to the ED for evaluation of improving but not resolved left hand pain and swelling after a blood draw last week. The patient's exam shows no evidence of infection, exam is consistent with healing ecchymosis, no other acute findings. Hand x-ray shows soft tissue swelling without evidence of foreign body or fracture. The patient was educated extensively on methods of extremity elevation, analgesics, and ice versus heat. Patient educated on expected duration of time for complete resolution of symptoms. Patient will be discharged with ibuprofen and Tylenol. Radiology Impression Discussion of test interpretation with radiology: I have reviewed the radiologist's reading. Radiologist Impression: EXAMINATION: XR HAND 3 OR MORE VIEWS LEFT HISTORY: pain and swelling, ? FB COMPARISON: There are no prior studies available for comparison. FINDINGS: Three views of the left hand are submitted. Osseous mineralization is normal. There is no fracture or dislocation. The joint spaces are preserved. There is dorsal soft tissue swelling. No radiopaque foreign body is identified. XR/XR hand LT min 3V IMPRESSION: Dorsal soft tissue swelling. No radiopaque foreign body is identified. Electronically signed by: Paulino Man MD 11/01/2024 03:43 PM EDT RP Prescription Management I considered prescription management with: Pain Medication and Antibiotic (Not indicated) Discharge Plan Discharge Clinical Impression: Contusion of left hand Patient Disposition: Home, Self-Care Instructions: Contusion in Adults (ED), Hematoma (ED) Additional Instructions: Thank you for choosing [facility]'s Emergency Department for your care today. Your swelling of your left hand today is consistent with a contusion which is likely result of a resolving hematoma. Your x-ray shows no evidence of retained foreign body or fracture. At this time there is no indication for admission to the hospital or continued ED observation, and it is safe to discharge you home. Please continue elevating your hand vertically as we discussed, and applying ice. Given the duration of time since your initial symptom onset, you can also attempt applying heat and continue using ice or heat, whichever is more effective to relieve your pain. Please be aware you may see additional color changes as your bruise continues to heal, and it may take up to 3-4 weeks to heal. You may take alternating (staggered) doses of ibuprofen 600mg and Tylenol 1000mg every 4 hours as needed for any additional pain. Please follow up with your primary care physician for re-evaluation, additional management of your symptoms, and continued preventative care. If you do not have a primary care physician, please call the [facility] at [phone] to establish a new primary care physician. While waiting to establish your new primary care physician, you can call our [facility] at [phone] for non-emergency needs. Please return to the emergency department if you develop a severe or sudden change in your symptoms, a fever over 100.4 that does not improve with Tylenol or Ibuprofen, recurrent vomiting, or any other new or worsening symptoms or concerns. Prescriptions: New ibuprofen 600 mg tablet 600 mg PO Q8H PRN (Reason: fever or pain) Qty: 30 0RF acetaminophen 500 mg capsule 1,000 mg PO .q8 PRN (Reason: fever or pain) Qty: 30 0RF No Action cholecalciferol (vitamin D3) 25 mcg (1,000 unit) capsule 25 mcg PO DAILY MDD 1000 unit 90 Days Qty: 90 0RF Rx Instructions: take one capsule daily by mouth at bedtime. mecobalamin (vitamin B12) 1,000 mcg tablet,chewable 1,000 mcg PO DAILY MDD 1000mcg 90 Days Qty: 90 0RF Rx Instructions: take one tablet of chewable 1000mcg b12 by mouth at bedtime. jldeukeuei-dkaagrmxctjkt-bkgu 50-325-40 mg tablet 1 tab PO Q6H PRN (Reason: haeadace) Qty: 20 0RF ferrous sulfate 325 mg (65 mg iron) tablet 325 mg PO DAILY MDD 325mg 60 Days Qty: 60 1RF Rx Instructions: take one 325mg tablet daily with orange juice at lunch time. If you feel constipated, you may decrease to 3-4 x per week. gabapentin 100 mg capsule See Rx Instructions PO BEDTIME 30 Days Qty: 90 1RF Rx Instructions: 1-3 capsules orally bedtime; ondansetron 4 mg tablet,disintegrating 4 mg PO Q8H 3 Days Qty: 9 0RF zoqfhdtaby-ptjgqqmlwwsxu-jmsf [Fioricet] 50-300-40 mg capsule 1 cap PO TID PRN (Reason: pain) Qty: 14 0RF ketorolac 10 mg tablet 10 mg PO Q8H PRN (Reason: pain) Qty: 10 0RF Rx Instructions: Do not use NSAIDs with this medication benzonatate 150 mg capsule 150 mg PO TID PRN (Reason: cough) Qty: 14 0RF triamcinolone acetonide 0.1 % cream 1 appl topical BID propranolol 10 mg tablet 10 mg PO ONCE fluticasone propionate 50 mcg/actuation spray,suspension 2 spray intranasal DAILY Rx Instructions: administer into each nostril dicyclomine 10 mg capsule 10 mg PO QID adapalene 0.1 % gel 1 appl topical BEDTIME benzoyl peroxide 2.5 % cleanser 1 appl topical BID Referrals: Latesha France MD [Primary Care Provider, Internal Medicine] Clinical Impression: Contusion of left hand Print Language: Congolese
[2024-11-01 19:03] VITALS: BP 147/73; PULSE 94; RESP 16; TEMP 36.3; O2SAT 99
== END 2024-11-01 19:03 | disposition home or self-care (01) ==
PROVIDERS: Emergency Provider Emergency Medicine; PCP Internal Medicine
DX: S60.222A Contusion of left hand, initial encounter (principal); W22.8XXA Striking against or struck by other objects, initial encounter; Y93.89 Activity, other specified; Y92.89 Other specified places as the place of occurrence of the external cause; Y99.8 Other external cause status
CPT/HCPCS: 73130; 99283

== ENCOUNTER → 2024-11-01 15:30 | Outpatient (BNV) | payer OTHER, SELFPAY | PROVIDERS: PCP Internal Medicine; Visit Provider Radiology Diagnostic Radiology | DX: R22.32 Localized swelling, mass and lump, left upper limb (principal) | CPT/HCPCS: 73130 ==

== ENCOUNTER 2024-11-20 16:50 | Emergency (ER) | payer OTHER, SELFPAY ==
[2024-11-20 17:25] VITALS: BP 116/60; PULSE 86; RESP 18; TEMP 36.8; O2SAT 100; BMI 21.2
--- NOTE | 2024-11-20 17:44 | PC.NURSE ---
Became unresponsive in waiting room while seated shortly after completing triage. Multiple staff assisted from chair to stretcher. Moved to ED 22. Did not wake with sternal rub.
[2024-11-20 17:46] VITALS: BP 113/74; PULSE 85; RESP 24; O2SAT 96
--- NOTE | 2024-11-20 18:17 | PC.NURSE ---
Patient became responsive in ED22 patient states My heart felt fast and then slow and i couldnt stay awake Patient c/o abdomen pain rated 8/10 non radiating A&O x 3 Patient is a hard stick, patient gets anxious with needles. Made one attempt and asked assisting nurse to attempt to place IV Boyfriend at bedside
--- OUTSIDE RECORDS SUMMARY | 2024-11-20 18:20 | XMS_ITS | Encounter Summary ---
Author Organization [facility] Address [address] [place] [address] Care Team Providers Care Charm Filter Operator Helper Name Role Phone Latesha France MD Primary Care Provider [phone]- [phone] Reason for Visit * Reason Onset Date Comments Med Refill 01/25/2024 Disregard put in to system in older [facility] for refill Encounter Details Date Type Department Care Team (Late Contact Info) Description 01/25/2024 Telephone Adult Medicine [place] - [address] [phone] Latesha France MD [address] [place] [address] [id number] Social History Tobacco Use Types Packs/Day Years [...] Upcoming Encounters Date Type Department Care Team ([facility] Contact Info) Description 12/17/2024 2:30 PM EDT Office Visit Obstetrics and Gynecology - [address] [phone] Sally Kinney CNM [address] [place] [address] 02/04/2025 1:00 PM EST Clinical Support Obstetrics and Gynecology - [address] [phone] 03/22/2025 3:00 PM EST Office Visit Adult Medicine [place] - [address] [phone] Latesha France MD [address] [place] [address] documented as of this encounter Visit Diagnoses Not on filedocumented in this encounter Additional Health Concerns Infection Onset Date Last Indicated Resolved Time Respiratory Rule-Out 05/22/2024 05/22/2024 025 7:00 PM EST C. difficile Rule-Out 05/23/2024 05/22/20242024 4:54 PM EST documented as of this encounter Care Teams Charm Filter Operator Helper Relationship Specialty Start Date End Date Latesha France MD [address] [place] [address] PCP - General Internal Medicine 02/13/24 documented as of this encounter
--- OUTSIDE RECORDS SUMMARY | 2024-11-20 18:20 | XMS_ITS | Encounter Summary ---
Author Organization [facility] Address [address] [place] [address] Care Team Providers Care Doughnut Batter Mixer Name Role Phone Latesha France MD Primary Care Provider [phone]- [phone] Reason for Visit * Reason Onset Date Comments Medication Reaction 10/24/2024 Encounter Details Date Type Department Care Team (Late st Contact Info) Description 10/24/2024 Telephone Adult Medicine [facility] [address] [place] [address] Latesha France MD [address] [place] [address] Social History Tobacco Use Types Packs/Day Years [...] Progress Notes * Giulia Torres RN - 10/24/2024 1:36 PM EDT Pt. And boyfriend , they state pt. Went to sleep fine she took 3 gabapentin and went to sleep . Shewoke up and felt she needed to go back to bed and when she feel asleep her body started to jump vigorously and arms waving around . She began to wake up and her boyfriend helped her sit up and she said very slowly she was sob . She then text on his phone she was sob. She is currently not sob , weak, dizzy or lightheaded but has had tremors throughout the day and has rt leg pain near her knee, no redness, heat or swelling . I advised to have pt. Be evaluated in the ER. And if she develops sob,cp or sob to call for ambulance . They agree * Mindy Horton - 10/24/2024 1:08 PM EDT Patient call requires triage: Symptoms patient is presenting: felt like she ran a marathon, took 3 Gabapetin last night for leg pain while she was sleeping cough, moaning & grunting, crying, jumping a lot. How long has patient had these symptoms?: 1 day For ALL patients calling to schedule any [...] to another state outside of [place], [place], [place], [place], [place], [place], [place]? no o If yes, did you quarantine [...] not applicable PCP: Latesha France MD Payor: [facility] PLAN / Plan: [facility] MEDICAID / Product Type: *No Product type* / documented in this encounter Plan of Treatment Upcoming Encounters Date Type Department Care Team (Late st Contact Info) Description 12/17/2024 2:30 PM EDT Office Visit Obstetrics and Gynecology [address] [phone] Sally Kinney CNM [address] [place] [address] 02/04/2025 1:00 PM EST Clinical Support Obstetrics and Gynecology - [address] [phone] 03/22/2025 3:00 PM EST Office Visit Adult Medicine [address] [phone] Latesha France MD [address] [place] [address] documented as of this encounter Visit Diagnoses Not on filedocumented in this encounter Care Teams Doughnut Batter Mixer Relationship Specialty Start Date End Date Latesha France MD [address] [place] [address] PCP - General Internal Medicine 02/13/24 documented as of this encounter
--- OUTSIDE RECORDS SUMMARY | 2024-11-20 18:20 | XMS_ITS | Encounter Summary ---
Author Organization [facility] Address [address] [place] [address] Care Team Providers Care Land Measurer Name Role Phone Latesha France MD Primary Care Provider [phone]- [phone] Reason for Visit * Reason Onset Date Comments Results 10/22/2024 Encounter Details Date Type Department Care Team (Late st Contact Info) Description 10/22/2024 Telephone Adult Medicine [facility] [address] [place] [address] Latesha France MD [address] [place] [address] Social History Tobacco Use Types Packs/Day Years [...] as of this encounter Progress Notes * Latesha France MD - 10/23/2024 7:39 AM EDT All recently completed labs from 10/17 so far are normal Few remains in process * Diana Wilmar - 10/22/2024 11:12 AM EDT Inform patient: ANY URGENT OR ABNORMAL RESULTS WIILL RESULT IN A CALL BACK TO THE PATIENT VITO. Type of test: :LABS Date test was performed: 10/17/24 Where was the test performed: [facility] Who ordered this test?: Latesha France MD Is the doctor here today?: yes Can the message wait until the doctor returns?: no IF PATIENT'S PCP IS NOT IN INSTRUCT PATIENT THAT THEY WILL RECEIVE A CALL BACK WHEN THE PCP IS IN THE OFFICE NEXT. documented in this encounter Plan of Treatment Upcoming Encounters Date Type Department Care Team (Late st Contact Info) Description 12/17/2024 2:30 PM EDT Office Visit Obstetrics and Gynecology - [address] [phone] [address] 02/04/2025 1:00 PM EST Clinical Support Obstetrics and Gynecology - [address] [phone] 03/22/2025 3:00 PM EST Office Visit Adult Medicine [address] [phone] Latesha France MD [address] [place] [address] documented as of this encounter Visit Diagnoses Not on filedocumented in this encounter Care Teams Land Measurer Relationship Specialty Start Date End Date Latesha France MD [address] [place] [address] PCP - General Internal Medicine 02/13/24 documented as of this encounter
--- OUTSIDE RECORDS SUMMARY | 2024-11-20 18:21 | XMS_ITS | Encounter Summary ---
Author Organization [facility] Address [address] [place] [address] Care Team Providers Care Map Drafter Name Role Phone Latesha France MD Primary Care Provider Reason for Visit * Reason Onset Date Comments Cough 04/02/2024 Encounter Details Date Type Department Care Team (Late st Contact Info) Description 04/02/2024 Nurse Triage Adult Medicine [address] [phone] Latesha France MD [address] [place] [phone] Social History Tobacco Use Types Packs/Day Years [...] and she does not have fever * Cristytacos Eliezer - 04/02/2024 8:58 AM EST Patient [...] traveled recently to another state outside of [place], [place], [place], [place], [place], [place], [place]? no o If yes, did you quarantine [...] gather 3rd constitution party insurance information Third Green Party Information: n/a PCP: Latesha France MD Payor: [employer] / Plan: [facility] MEDICAID / Product Type: *No Product type* / documented in this encounter Plan of Treatment Upcoming Encounters Date Type Department Care Team (Late st Contact Info) Description 12/17/2024 2:30 PM EDT Office Visit Obstetrics and Gynecology [address] [phone] Sally Kinney CNM [address] [place] [address] 02/04/2025 1:00 PM EST Clinical Support Obstetrics and Gynecology - [address] [phone] 03/22/2025 3:00 PM EST Office Visit Adult [address] [phone] Latesha France MD [address] [place] [address] documented as of this encounter Visit Diagnoses Not on filedocumented in this encounter Additional Health Concerns Infection Onset Date Last Indicated Resolved Time Respiratory Rule-Out 05/22/2024 05/22/2024 025 7:00 PM EST C. difficile Rule-Out 05/23/2024 05/22/20242024 4:54 PM EST documented as of this encounter Care Teams Map Drafter Relationship Specialty Start Date End Date Latesha France MD [address] [place] [address] PCP - General Internal Medicine 02/13/24 documented as of this encounter
--- OUTSIDE RECORDS SUMMARY | 2024-11-20 18:21 | XMS_ITS | Encounter Summary ---
Author Organization [facility] Address [address] [place] [address] Care Team Providers Care Specimen Processor Name Role Phone Latesha France MD Primary Care Provider [phone]- [phone] Encounter Details Date Type Department Care Team (Late st Contact Info) Description 07/24/2024 Nurse Triage Adult Medicine [address] [phone] Latesha Frnace MD [address] [place] [address] Social History Tobacco Use Types Packs/Day Years [...] Office Visit Obstetrics and Gynecology - [address] [phone] Sally Kinney [address] 02/04/2025 1:00 PM EST Clinical Support Obstetrics and Gynecology - [address] [phone] 03/22/2025 3:00 PM EST Office Visit Adult Medicine [address] [phone] Latesha France MD [address] [place] [address] documented as of this encounter Visit Diagnoses Not on filedocumented in this encounter Care Teams Specimen Processor Relationship Specialty Start Date End Date Latesha France MD [address] [place] [address] PCP - General Internal Medicine 02/13/24 documented as of this encounter
--- OUTSIDE RECORDS SUMMARY | 2024-11-20 18:21 | XMS_ITS | Encounter Summary ---
Author Organization [facility] Address [address] [place] [address] Care Team Providers Care Director Paid Media Name Role Phone Latesha France MD Primary Care Provider Reason for Visit * Reason Onset Date Comments medical concern 10/26/2024 Encounter Details Date Type Department Care Team (Late st Contact Info) Description 10/26/2024 Telephone [facility] [address] [place] [phone] Maria Eugenia Mccartney MD [address] [place] [address] [address] [place] [phone] Social History Tobacco Use Types Packs/Day Years [...] as of this encounter Progress Notes * Yamilex Eagle NP - 10/27/2024 7:20 AM EDT This has been an ongoing issue for which she has had a full cardiac work up.. Would recommend neurofollow up. Does not need to see us at this time based on the ED notes. Thank you * Radhika King MA - 10/26/2024 3:56 PM EDT Please see [facility] ppwk scanned in for your review to determine if pt needs a hospital follow upappt and how soon * Laura Wood - 10/26/2024 1:43 PM EDT Patient called in to report she went to the [facility] on 10/24/24 for SOB causing her to pass out. The ER suggested she contact all of her specialist to see if she needed to follow up with them. She would like a call back at [phone] documented in this encounter Plan of Treatment Upcoming Encounters Date Type Department Care Team (Late st Contact Info) Description 12/17/2024 2:30 PM EDT Office Visit Obstetrics and Gynecology - [address] [phone] Sally Kinney CNM [address] [place] [address] 02/04/2025 1:00 PM EST Clinical Support Obstetrics and Gynecology - [address] [phone] 03/22/2025 3:00 PM EST Office Visit Adult Medicine [address] [phone] Latesha France MD [address] [place] [address] documented as of this encounter Visit Diagnoses Not on filedocumented in this encounter Care Teams Director Paid Media Relationship Specialty Start Date End Date Latesha France MD [address] [place] [address] PCP - General Internal Medicine 02/13/24 documented as of this encounter
--- OUTSIDE RECORDS SUMMARY | 2024-11-20 18:21 | XMS_ITS | Encounter Summary ---
Author Organization [facility] Address [address] [place] [address] Care Team Providers Care High [employer] Chemistry Teacher Name Role Phone Latesha France MD Primary Care Provider [phone]- [phone] Reason for Visit * Reason Onset Date Comments Abdominal Pain 04/25/2024 Diarrhea 04/25/2024 Encounter Details Date Type Department Care Team (Late st Contact Info) Description 04/25/2024 Nurse Triage Adult Medicine [address] [phone] Latesha France MD [address] [place] [phone] Social History Tobacco Use Types Packs/Day Years [...] traveled recently to another state outside of [place], [place], [place], [place], [place], [place], [place]? no o If yes, did you quarantine [...] of accident/Injury: No If yes, gather 3rd republican insurance information Third Libertarian Information: not applicable PCP: Latesha France MD Payor: [employer] HEALTH PLAN / [facility] / Product Type: *No Product type* / documented in this encounter Plan of Treatment Upcoming Encounters Date Type Department Care Team (Late st Contact Info) Description 12/17/2024 2:30 PM EDT Office Visit Obstetrics and Gynecology [address] [phone] Sally Kinney CNM [address] [place] [address] 02/04/2025 1:00 PM EST Clinical Support Obstetrics and Gynecology - [address] [phone] 03/22/2025 3:00 PM EST Office Visit Adult Medicine [place] - [address] [phone] Latesha France MD [address] [place], [place] documented as of this encounter Visit Diagnoses Not on filedocumented in this encounter Additional Health Concerns Infection Onset Date Last Indicated Resolved Time Respiratory Rule-Out 05/22/2024 05/22/2024 025 7:00 PM EST C. difficile Rule-Out 05/23/2024 05/22/20242024 4:54 PM EST documented as of this encounter Care Teams High School Chemistry Teacher Relationship Specialty Start Date End Date Latesha France MD [address] [place] [address] PCP - General Internal Medicine 02/13/24 documented as of this encounter
--- OUTSIDE RECORDS SUMMARY | 2024-11-20 18:21 | XMS_ITS | Encounter Summary ---
Author Organization [facility] Address [address] [place] [address] Care Team Providers Care Reinforced Steel Placing Supervisor Name Role Phone Latesha France MD Primary Care Provider [phone]- [phone] Reason for Visit * Reason Onset Date Comments Abdominal Pain 11/19/2024 Encounter Details Date Type Department Care Team (Late st Contact Info) Description 11/19/2024 Telephone Obstetrics and Gynecology - [place] [place] [address] Gemini Bazzi, [facility] [address] [place] [address] Social History Tobacco Use Types Packs/Day Years [...] as of this encounter Progress Notes * Krupa Lopez RN - 11/19/2024 11:04 AM EDT Spoke with pt- c/o lower abdominal pain continues on and off. Denies vaginal discharge, itch , odoror bleeding. Advised no sooner appts then what she is already scheduled for. Advised to go to ER ifsymptoms worsen. Pt agrees. * Emely Orona - 11/19/2024 11:00 AM EDT Pt called back still c/o of lower abdominal pain and nausea - she spoke with the laboratory courier nurse last week and was told the discomfort should subside- had her 2nd depo shot last Tuesday - but wants to be known that she is sexually active - asking for advice please call documented in this encounter Plan of Treatment Upcoming Encounters Date Type Department Care Team (Late st Contact Info) Description 12/17/2024 2:30 PM EDT Office Visit Obstetrics and Gynecology - [address] [phone] Sally Kinney [address] 02/04/2025 1:00 PM EST Clinical Support Obstetrics and Gynecology - [address] [phone] 03/22/2025 3:00 PM EST Office Visit Adult Medicine [address] [phone] Latesha France MD [address] [place] [address] documented as of this encounter Visit Diagnoses Not on filedocumented in this encounter Care Teams Reinforced Steel Placing Supervisor Relationship Specialty Start Date End Date Latesha France MD [address] [place] [address] PCP - General Internal Medicine 02/13/24 documented as of this encounter
--- OUTSIDE RECORDS SUMMARY | 2024-11-20 18:21 | XMS_ITS | Encounter Summary ---
Author Organization [facility] Address [address] [place] [address] Care Team Providers Care Manager Marketing Sales Name Role Phone Latesha France MD Primary Care Provider [phone]- [phone] Reason for Visit * Reason Onset Date Comments Abdominal Pain 11/20/2024 Leg Pain 11/20/2024 Encounter Details Date Type Department Care Team (Late st Contact Info) Description 11/20/2024 Telephone Adult Medicine [facility] [address] [place] [address] Latesha France MD [address] [place] [address] Social History Tobacco Use Types Packs/Day Years [...] Progress Notes * Giulia Torres RN - 11/20/2024 4:07 PM EDT Pt. States she has lower abd. Pain below the naval the pain is sharp and shooting and is intermittent approx every 1/2 hour, she has nausea but not vomiting . The bad. Is non-tender in that area. Today the pain is worse . Her last BM was today which was brown not black,she has been having intermittent chills but no fever . She denies burning with urination or bladder pressure but when she develops the pain she then has to urinate, no back pain . She has all so had issues with her legs shaking ,she does see neurology but states her legs are shaking and has been having difficulty she sts she typically has issues with her legs shaking but they feel stiffer , no redness, heat or swelling noted . I advised her to be evaluated in the ER and have her boyfriend take her or go by ambulance if she develops, sob,weakness,cp , dizziness or increase abd. Pain . Pt. agrees * Lorie Ruelas - 11/20/2024 3:53 PM EDT The patient is calling back, she has not received a call back yet, still having the same symptoms. Please advise. Thank you. * Dilcia Ferrera - 11/20/2024 2:11 PM EDT Patient call requires triage: Symptoms patient is presenting: patient having abdominal and leg pain with shakes How long has patient had these symptoms?: since 11/12 For ALL patients calling to schedule any [...] traveled recently to another state outside of [place], [place], [place], [place], [place], [place], [place]? no o If yes, did you quarantine [...] not applicable PCP: Latesha France MD Payor: [employer] PLAN / Plan: Consulted MEDICAID / Product Type: *No Product type* / documented in this encounter Plan of Treatment Upcoming Encounters Date Type Department Care Team (Late st Contact Info) Description 12/17/2024 2:30 PM EDT Office Visit Obstetrics and Gynecology - [address] [phone] Sally Kinney [address] 02/04/2025 1:00 PM EST Clinical Support Obstetrics and [facility] - [address] [phone] 03/22/2025 3:00 PM EST Office Visit Adult Medicine [address] [phone] Latesha France MD [address] [place] [address] documented as of this encounter Visit Diagnoses Not on filedocumented in this encounter Care Teams Manager Marketing Sales Relationship Specialty Start Date End Date Latesha France MD [address] [place] [address] PCP - General Internal Medicine 02/13/24 documented as of this encounter
--- OUTSIDE RECORDS SUMMARY | 2024-11-20 18:21 | XMS_ITS | Encounter Summary ---
Author Organization [facility] Address [address] [place] [address] Care Team Providers Care Straddle Buggy Operator Name Role Phone Latesha France MD Primary Care Provider [phone]- [phone] Reason for Visit * Reason Onset Date Comments Results 11/15/2024 Encounter Details Date Type Department Care Team (Late st Contact Info) Description 11/15/2024 Telephone Adult Medicine [facility] [address] [place] [address] Latesha France MD [address] [place] [address] Social History Tobacco Use Types Packs/Day Years [...] as of this encounter Progress Notes * Yecenia Hendrickson MA - 11/15/2024 5:04 PM EDT Images from the original note were not included. end Comments Seen Back to Top Myositis panel was normal Written by Latesha France MD on 11/06/2024 5:22 PM EDT Seen by patient Gabrielle Forrester on 11/06/2024 6:02 PM * Liliya Jacqui - 11/15/2024 1:57 PM EDT Patient is calling in to inquire about her Myositis panel 1 and 2. Please advise. documented in this encounter Plan of Treatment Upcoming Encounters Date Type Department Care Team (Late st Contact Info) Description 12/17/2024 2:30 PM EDT Office Visit Obstetrics and Gynecology - [address] [phone] Sally Kinney [address] 02/04/2025 1:00 PM EST Clinical Support Obstetrics and [facility] - [address] [phone] 03/22/2025 3:00 PM EST Office Visit Adult Medicine [address] [phone] Latesha France MD [address] [place] [address] documented as of this encounter Visit Diagnoses Not on filedocumented in this encounter Care Teams Straddle Buggy Operator Relationship Specialty Start Date End Date Latesha France MD [address] [place] [address] PCP - General Internal Medicine 02/13/24 documented as of this encounter
--- OUTSIDE RECORDS SUMMARY | 2024-11-20 18:21 | XMS_ITS | Encounter Summary ---
Author Organization [facility] Address [address] [place] [address] Care Team Providers Care Inspector Of Dredging Name Role Phone Latesha France MD Primary Care Provider Reason for Visit * Reason Onset Date Comments Hypotension 03/19/2024 Encounter Details Date Type Department Care Team (Late st Contact Info) Description 03/19/2024 Nurse Triage Adult Medicine [address] [phone] Latesha France MD [address] [place] [address] Social History Tobacco Use Types Packs/Day Years [...] traveled recently to another state outside of [place], [place], [place], [place], [place], [place], [place]? no o If yes, did you quarantine [...] gather 3rd alliance party insurance information Third Green Party Information: not applicable PCP: Latesha France MD Payor: [employer] PLAN / Plan: [employer] MEDICAID / Product Type: *No Product type* / documented in this encounter Plan of Treatment Upcoming Encounters Date Type Department Care Team (Late st Contact Info) Description 12/17/2024 2:30 PM EDT Office Visit Obstetrics and Gynecology [address] [phone] [address] Kinney [address] 02/04/2025 1:00 PM EST Clinical Support Obstetrics and Gynecology - [address] [phone] 03/22/2025 3:00 PM EST Office Visit Adult Medicine [address] [phone] Latesha France MD [address] [place] [address] documented as of this encounter Visit Diagnoses Not on filedocumented in this encounter Additional Health Concerns Infection Onset Date Last Indicated Resolved Time Respiratory Rule-Out 05/22/2024 05/22/2024 025 7:00 PM EST C. difficile Rule-Out 05/23/2024 05/22/20242024 4:54 PM EST documented as of this encounter Care Teams Inspector Of Dredging Relationship Specialty Start Date End Date Latesha France MD [address] [place] [address] PCP - General Internal Medicine 02/13/24 documented as of this encounter
--- OUTSIDE RECORDS SUMMARY | 2024-11-20 18:21 | XMS_ITS | Clinical Summary ---
Author Organization [facility] [address] [facility] l[address] Address [address] [place] [address] Phone Care Team Providers Care Photo Studio Assistant Name Role Phone Latesha France MD Primary Care Provider Allergies No known active allergies Medications fluticasone propionate (FLONASE) 50 mcg/actuation nasal spray SPRAY 2 SPRAYS INTO EACH NOSTRIL EVERY DAY SHAKE GENTLY. CLEAN TIP AND REPLACE CAP AFTER USE. 16 mL 3 5 Active triamcinolone (KENALOG) 0.1 % ointment Apply topically 2 (two) times a day. For 2 weeks 30 g 2 5 Active sodium chloride (OCEAN) 0.65 % nasal spray Administer 1 spray into each nostril if needed for congestion. 15 mL 5 5 026 Active benzoyl peroxide (Acne Medication) 2.5 % gel Apply 1 g topically 2 times daily as needed (acne). 30 g 4 5 Active ondansetron ODT (ZOFRAN-ODT) 4 mg disintegrating tablet Take 1 tablet (4 mg total) by mouth every 8 (eight) hours if needed for nausea or vomiting. 20 tablet 5 Active PHENobarbitaL 30 mg tablet Take 1 tablet (30 mg total) by mouth 1 (one) time each day. 5 Active medroxyPROGESTERon e (Depo-Provera) 150 mg/mL injection Inject 1 mL (150 mg total) into the shoulder, thigh, or buttocks every 3 (three) months. 1 mL 3 5 Active gabapentin (NEURONTIN) 100 mg capsule Take 1 capsule (100 mg total) by mouth 2 (two) times a day. 60 each 5 Active ZOLMitriptan (ZOMIG) 2.5 mg tablet Take 1 tablet (2.5 mg total) by mouth 1 (one) time if needed for migraine. May repeat once after 2 hours. 18 tablet 3 5 026 Active albuterol HFA (Ventolin HFA) 90 mcg/actuation inhaler Inhale 2 puffs by mouth every 6 (six) hours if needed for shortness of breath. 8 g 1 5 026 Active cholecalciferol (VITAMIN D-3) 50 mcg (2,000 unit) capsule Take 1 capsule (2,000 Units total) by mouth 1 (one) time each day. 30 each 5 026 Active Hospital, Clinic, or Other Facility Administered Medication Ordered Dose Route Frequency Start Date End Date Status medroxyPROGESTERone (DEPO-PROVERA) injection 150 mgIndications:Encounter for management and injection of depo-Provera 150 mg IM Once 11/12/2024 11/12/2024 Ended Active Problems Problem Noted Date Diagnosed Date Snoring 10/17/2024 Abnormal leg movement 10/02/2024 Pre-syncope 10/02/2024 Developmental delay, mild 08/17/2024 Hypoglycemia 07/24/2024 Pain in both lower extremities 07/24/2024 Abdominal discomfort 07/24/2024 Tinnitus of right ear 07/24/2024 Chest pain 07/24/2024 White matter abnormality on MRI of brain 025 Weakness of both lower extremities 07/19/2024 Low bicarbonate 07/19/2024 Atherosclerosis of artery of both lower extremities (CMS/HCC V24) 07/19/2024 Engages in vaping 07/19/2024 Cannabis use disorder 07/19/2024 Nasal congestion 07/19/2024 Insomnia 01/26/2024 Hypotension 01/04/2024 Menorrhagia with regular cycle 01/04/2024 [...] Encounters Date Type Department Care Team Description 11/20/2024 Telephone Adult Medicine [address] [phone] Latesha France MD 11/19/2024 Telephone Obstetrics and Gynecology - [address] [phone] Gemini Bazzi CNM 11/15/2024 Telephone Adult Medicine [address] [phone] Latesha France MD 11/14/2024 Telephone Obstetrics and Gynecology [address] [phone] Sally Kinney CNM 11/12/2024 1:00 PM EDT Clinical Support Obstetrics and Gynecology - [address] [phone] Encounter for management and injection of depo-Provera (Primary Dx) 11/09/2024 7:20 AM EDT - 11/09/2024 11:59 PM EDT Hospital Encounter [facility] [address] [place] [id number] Discharge Disposition: Home or Self Care 11/07/2024 Telephone Obstetrics and Gynecology - [address] [phone] Sally Kinney CNM 11/06/2024 8:30 AM EDT Office Visit [address] [phone] Latesha France MD Enlarged tonsils (Primary Dx); Sore throat; Localized swelling on left hand 11/05/2024 Telephone Obstetrics and Gynecology [address] [phone] Sally Kinney CNM 11/02/[address] [phone] Latesha France MD 11/01/[address] [phone] Latesha France MD 10/31/2024 1:39 PM EDT - 10/31/2024 11:59 PM EDT Hospital Encounter [address] [phone] SOB (shortness of breath) Discharge Disposition: Home or Self Care 10/31/2024 1:00 PM EDT Office Visit [address] [phone] Latesha France MD Psychogenic nonepileptic seizure (Primary Dx); Vitamin D deficiency; SOB (shortness of breath) 10/29/[address] [phone] Latesha France MD 10/26/2024 Telephone [facility] [place] [address] Maria Eugenia Mccartney MD 10/26/[address] [phone] Latesha France MD 10/25/[address] [phone] Latesha France MD 10/24/[address] [phone] Latesha France MD 10/22/[address] [phone] Latesha France MD 10/19/[address] [phone] Latesha France MD 10/18/[address] [phone] Latesha France MD 10/17/2024 12:30 PM EDT Office Visit [address] [phone] Latesha France MD Other migraine without status migrainosus, not intractable (Primary Dx); Snoring; Repeated interruption of sleep during rapid eye movement stage; Vitamin D deficiency; Iron deficiency anemia, unspecified iron deficiency anemia type; Pain in both lower extremities 10/15/[address] [phone] Latesha France MD 10/12/[address] [phone] Latesha France MD 10/02/2024 2:30 PM EDT Office Visit [address] [phone] Latesha France MD Pain in both lower extremities (Primary Dx); Abnormal leg movement; Pre-syncope; Syncope, unspecified syncope type; Weakness of both lower extremities 09/25/2024 11:10 AM EDT Office Visit [facility] [address] [place] [phone] Yamilex Eagle NP Syncope, unspecified syncope type (Primary Dx) 09/21/2024 Telephone Adult [address] [phone] Latesha France MD 09/20/[address] [phone] Latesha France MD 09/12/2024 1:15 PM EDT Ancillary Procedure [facility] [address] [place] [id number] Dyspnea on exertion 09/04/2024 11:30 AM EDT Office Visit [address] [phone] Latesha France MD Acne, unspecified acne type (Primary Dx) 09/03/[address] [facility] [address] [place] [phone] Maria Eugenia Mccartney MD 09/03/[address] [phone] Latesha France MD 08/27/2024 1:40 PM EDT Office Visit [facility] [address] [place] [phone] Yamilex Eagle NP Dyspnea on exertion (Primary Dx) 08/27/[address] [phone] Latesha France MD 08/23/2024 Telephone Obstetrics and Gynecology [address] [phone] Gemini Bazzi CNM 08/23/2024 Telephone Adult Medicine [place] - [address] [phone] Tayler Mandujano MA 08/22/2024 2:00 PM EDT Clinical Support Obstetrics and Gynecology - [address] [phone] Initiation of Depo Provera (Primary Dx) from Last 3 Months Immunizations Name Administration [...] Sign Reading Time Taken Comments Blood Pressure 95/68 11/12/2024 1:19 PM EDT Pulse 60 11/12/2024 1:19 PM EDT Temperature 36.3 C (97.3 F) 11/06/2024 8:11 AM EDT Respiratory Rate 14 11/12/2024 1:19 PM EDT Oxygen Saturation 98% 09/25/2024 10:51 AM EDT Inhaled Oxygen Concentration - - Weight 49.9 kg (110 lb) 11/12/2024 1:19 PM EDT Height 155 cm (5' 1.02 ) 11/12/2024 1:19 PM EDT Body Mass Index 20.77 11/12/2024 1:19 PM EDT Plan of Treatment Upcoming Encounters Date Type Department Care Team (Late st Contact Info) Description 12/17/2024 2:30 PM EDT Office Visit Obstetrics and Gynecology - [address] [phone] Sally Kinney, ALEJANDRO[address] 02/04/2025 1:00 PM EST Clinical Support Obstetrics and [facility] - [address] [phone] 03/22/2025 3:00 PM EST Office Visit Adult Medicine [address] [phone] Latesha France MD [address] [place] [phone] Health Maintenance Due Date Last Done Comments Meningococcal B Vaccine (1 o f 2 - Standard) 2017 Hepatitis B Vaccines (1 of 3 - 19+ 3-dose series) 2020 HIV Screening 02/28/2022 Hepatitis C Screening 02/28/2022 Social Influencers of Health Screening 02/28/2022 COVID-19 Vaccine (3 - 2023-2 5 season) 2023 08/22/2020, 07/25/2020 Depression Screening 03/28/2024 07/29/2023 Influenza Vaccine (#1) 2024 Gonorrhea/Chlamydia Screening 04/30/2025 04/30/2024 Cervical Cancer [...] 5 Years) and At-Risk Patients (6 to 49 Years) Aged Out No longer eligible b ased on patient's age to complete this topic RSV Immunization Patients Under 20 months Aged Out No longer eligible b ased on patient's age to complete this topic Varicella Vaccines Aged Out No longer eligible based on patient's age to complete this topic Procedures Procedure Name Priority Date/Time Associated Diagnosis Comments HC SPIROMETRY BRONCHODILATION RESPONSIVENESS PRE/POST BRONCHODILATOR ADMINISTRATION Routine 11/09/2024 8:01 AM EDT SOB (shortness of breath) POC RAPID STREP A Routine 11/06/2024 9:1 4 AM EDT Enlarged tonsils Sore throat CULTURE THROAT Routine 11/06/2024 9:13 AM EDT Sore throat XR CHEST 2 VIEWS Routine 10/31/2024 1:52 PM EDT SOB (shortness of breath) INTERFERON GAMMA INTERPRETATION Routine 10/31/2024 1:39 PM EDT SOB (shortness of breath) INTERFERON GAMMA ANTIGEN 2 Routine 10/31/2024 1:39 PM EDT SOB (shortness of breath) INTERFERON GAMMA ANTIGEN 1 Routine 10/31/2024 1:39 PM EDT SOB (shortness of breath) INTERFERON GAMMA MITOGEN Routine 08/06/2 025 1:39 PM EDT SOB (shortness of breath) INTERFERON GAMMA NIL Routine 10/31/2024 1:39 PM EDT SOB (shortness of breath) BASIC METABOLIC PANEL Routine 10/31/2024 1:39 PM EDT Psychogenic nonepileptic seizure MYOSITIS MARKER PANEL 3 Routine 11/01/19 25 1:39 PM EDT Psychogenic nonepileptic seizure VITAMIN D 25 HYDROXY Routine 10/31/2024 1:39 PM EDT Vitamin D deficiency INTERFERON GAMMA FOR TB, QUALITATIVE Routine 10/31/2024 1:39 PM EDT SOB (shortness of breath) MYOSITIS MARKER PANEL 3 Routine 10/18/19 12:22 PM EDT Vasovagal syncope Hypoglycemia Moderate intellectual disabilities PTSD (post-traumatic stress disorder) Abnormal leg movement IRON AND TIBC Routine 10/17/2024 12:22 PM EDT Iron deficiency anemia, unspecified iron deficiency anemia type SJOGRENS ANTIBODIES, SSA AND SSB Routine 10/17/2024 12:22 PM EDT Pain in both lower extremities THYROID PEROXIDASE ANTIBODY Routine 10/17/2024 12:22 PM EDT Pain in both lower extremities ANTI-SCLERODERMA ANTIBODY Routine 10/17/2024 12:22 PM EDT Pain in both lower extremities RHEUMATOID FACTOR Routine 10/17/2024 12: 22 PM EDT Pain in both lower extremities C4 COMPLEMENT Routine 10/17/2024 12:22 PM EDT Pain in both lower extremities C3 COMPLEMENT Routine 10/17/2024 12:22 PM EDT Pain in both lower extremities SMOOTH MUSCLE ANTIBODY IGG Routine 10/17/2024 12:22 PM EDT Pain in both lower extremities ANTI-PARIETAL ANTIBODY Routine 12:22 PM EDT Pain in both lower extremities MYOCARDIAL ANTIBODY IGG, REFLEX TO TITER Routine 10/17/2024 12:22 PM EDT Pain in both lower extremities ANTIMITOCHONDRIAL ANTIBODY Routine 10/17/2024 12:22 PM EDT Pain in both lower extremities ANTI-DNA ANTIBODY, DOUBLE-STRANDED Routine 10/17/2024 12:22 PM EDT Pain in both lower extremities CBC WITH AUTO DIFFERENTIAL Routine 10/02/2024 2:28 PM EDT Weakness of both lower extremities COMPREHENSIVE METABOLIC PANEL Routine 10/02/2024 2:28 PM EDT Weakness of both lower extremities CBC AND DIFFERENTIAL Routine 10/02/2024 2:28 PM EDT Weakness of both lower extremities CREATINE KINASE Routine 10/02/2024 2:28 PM EDT Pain in both lower extremities Weakness of both lower extremities IRON AND TIBC Routine 10/02/2024 2:28 PM EDT Weakness of both lower extremities THYROID STIMULATING HORMONE WITH REFLEX TO FREE T4 AND FREE T3 Routine 10/02/2024 2:28 PM EDT Pain in both lower extremities Weakness of both lower extremities STRESS TEST ONLY EXERCISE Routine 09/12/2024 1:42 PM EDT Dyspnea on exertion POC , URINE DIAGNOSTIC Routine 08/22/2024 2:00 PM EDT Initiation of Depo Provera LIPID PANEL WITH REFLEX TO DIRECT LDL Routine 07/19/2024 1:38 PM EDT Atherosclerosis of artery of both lower extremities (CMS/HCC V24) CHLAMYDIA TRACHOMATIS AND NEISSERIA GONORRHOEAE PCR Routine 04/30/2024 10:52 AM EST Menorrhagia with regular cycle Crampy pain associated with menses HPV Routine 08/30/2023 DEPRESSION SCREENING Routine 07/29/2023 from Last 3 Months or Most Recently Relevant to Health Maintenance Results * Pulmonary function testing: Spirometry with Bronchodilator, Spirometry (11/09/2024 8:01 AM EDT) Narrative Jennifer Kaufman MD - 11/09/2024 6:58 PM EDT Table formatting from the original result was not included. Images from the original result were not included. [facility] [address] [place] [id number] Pulmonary Functions Report Date of service: 11/09/24 Patient Name: Josefina Antoine Date of : 2000 Age: 24 y.o. Gender: female Ordering Provider: Latesha France MD Diagnosis listed on Order: SOB (shortness of breath) Reason for Exam: Order Questions Answers Reason for Exam: sob Which PFTs would you like to perform? Spirometry with Bronchodilator,Spirometry Pulmonary Test Finding: Spirometry/ Flow Volume Loop: FEV1 is 2.44 at 96 % of predicted., FVC is 91 % of predicted. , FEV1/FVC ratio is 94 % of predicted. Spirometry Post Bronchodilator Response: No bronchodilator response. Quality of Study: Meets ATS criteria for acceptability and repeatability Refer to scanned report for all additional results and graphs. Interpretation/Impression: No obstruction. Latesha France MD PFT ORDERABLES Final Resul t * POC rapid strep A manually resulted (11/06/2024 9:14 AM EDT) Rapid Strep A Screen POC Negative Negative Internal Control Pass Yes Yes Swab Structure of anterior portion of neck / Unknown 11/06/2024 9:14 AM EDT Latesha France MD POINT OF CARE TEST ENTER/ED IT ORDERABLES Final Result * Culture throat (11/06/2024 9:13 AM EDT) Culture, Throat No pathogens isolated. 11/08/2024 10:35 AM EDT [facility] Swab Structure of anterior portion of neck / Unknown Non-blood Collection / Unknown 11/06/2024 9:13 AM EDT 11/06/2024 9:13 AM EDT Latesha France MD LAB MICROBIOLOGY - GENERAL ORDERABLES Final Result [facility] [address] [place] [address], [place] [phone] * XR Chest 2 Views (10/31/2024 1:52 PM EDT) Anatomical Region Laterality Modality Body Radiographic Domonique ging 10/31/2024 6:17 PM EDT Impressions 10/31/2024 6:17 PM EDT No acute cardiopulmonary process. -------- FINAL REPORT -------- Dictated By: Courtney Prakash Dictated Date: 10/31/2024 18:17 ET Assigned Physician: Courtney Prakash Reviewed and Electronically Signed By: Courtney Prakash Signed Date: 10/31/2024 18:17 ET Workstation ID: [id number] Transcribed By: Self Edit Transcribed Date: 10/31/2024 18:17 ET Narrative 10/31/2024 6:17 PM EDT HISTORY: SOB TECHNIQUE: PA and lateral radiographs of the chest COMPARISON: None FINDINGS: There is a normal cardiomediastinal silhouette. The lungs are clear. The osseous structures are intact. Procedure Note Courtney Prakash MD - 10/31/2024 HISTORY: SOB TECHNIQUE: PA and lateral radiographs of the chest COMPARISON: None FINDINGS: There is a normal cardiomediastinal silhouette. The lungs are clear. Theosseous structures are intact. IMPRESSION: No acute cardiopulmonary process. -------- FINAL REPORT -------- Dictated By: Courtney Prakash Dictated Date: 10/31/2024 18:17 ET Assigned Physician: Courtney Prakash Reviewed and Electronically Signed By: Courtney Prakash Signed Date: 10/31/2024 18:17 ET Workstation ID: [id number] Transcribed By: Self Edit Transcribed Date: 10/31/2024 18:17 ET Latesha France MD IMG XR PROCEDURES Final Res ult * Interferon gamma interpretation (10/31/2024 1:39 PM EDT) Quantiferon Plus Interpretation Negative Negative LAB CHEMISTRY METHOD 11/02/2024 11:18 AM EDT [facility] Blood Venous blood specimen / Unknown Venipuncture / Unknown 10/31/2024 1:39 PM EDT 10/31/2024 1:39 PM EDT Latesha France MD LAB BLOOD ORDERABLES Final Result [facility] [address] [place] [address], [place] [phone] * Interferon gamma antigen 2 (10/31/2024 1:39 PM EDT) Blood Venous blood specimen / Unknown Venipuncture / Unknown 10/31/2024 1:39 PM EDT 10/31/2024 1:39 PM EDT Latesha France MD LAB BLOOD ORDERABLES Final Result [facility] [address] [place] [address], [place] [phone] * Interferon gamma antigen 1 (10/31/2024 1:39 PM EDT) Blood Venous blood specimen / Unknown Venipuncture / Unknown 10/31/2024 1:39 PM EDT 10/31/2024 1:39 PM EDT us Latesha France MD LAB BLOOD ORDERABLES Final Result Performing Organization Address [facility]/ZIP Co de Phone Number [facility] [address] [place] [address], [place] [phone] * Interferon gamma mitogen (10/31/2024 1:39 PM EDT) Blood Venous blood specimen / Unknown Venipuncture / Unknown 10/31/2024 1:39 PM EDT 10/31/2024 1:39 PM EDT Latesha France MD LAB BLOOD ORDERABLES Final Result Performing Organization Address [facility] Co de Phone Number [facility] [address] [place] [address], [place] [phone] * Interferon gamma NIL (10/31/2024 1:39 PM EDT) Blood Venous blood specimen / Unknown Venipuncture / Unknown 10/31/2024 1:39 PM EDT 10/31/2024 1:39 PM EDT Latesha France MD LAB BLOOD ORDERABLES Final Result Performing Organization Address [facility] de Phone Number [facility] [address] [place] [address], [place] [phone] * Myositis panel 3 (10/31/2024 1:39 PM EDT) Only the most recent of2 resultswithin the time period is included. Dottie-1 Ab <20 <20 Units 11/16/2024 1:[address] [facility] [address] Ab Negative Negative 11/16/2024 1:10 PM EDT [facility] Comment: This test was developed and its performance characteristics determined by [facility]. It has not been cleared or approved by the Food and Drug Administration. PL-12 Ab Negative Negative 11/16/2024 1:10 PM EDT [facility] Comment: This test was developed and its performance characteristics determined by [facility]. It has not been cleared or approved by the Food and Drug Administration. Ej Ab Negative Negative 11/16/2024 1:10 PM EDT [facility] Comment: This test was developed and its performance characteristics determined by [facility]. It has not been cleared or approved by the Food and Drug Administration. Oj Ab Negative Negative 11/16/2024 1:10 PM EDT [facility] Comment: This test was developed and its performance characteristics determined by [facility]. It has not been cleared or approved by the Food and Drug Administration. SRP Ab Negative Negative 11/16/2024 1:10 PM EDT [facility] Comment: This test was developed and its performance characteristics determined by [facility]. It has not been cleared or approved by the Food and Drug Administration. KS-2 Ab Negative Negative 11/16/2024 1:10 PM EDT [facility] Comment: This test was developed and its performance characteristics determined by [facility]. It has not been cleared or approved by the Food and Drug Administration. TIF1 Gamma (P155/140) Ab <20 <20 Units 11/16/2024 1:10 PM EDT [facility] Comment: This test was developed and its performance characteristics determined by [facility]. It has not been cleared or approved by the Food and Drug Administration. MDA-5 (P140)(CADM-140) Ab <20 <20 Units 11/16/2024 1:10 PM EDT [facility] Comment: This test was developed and its performance characteristics determined by [facility]. It has not been cleared or approved by the Food and Drug Administration. NXP-2 (P140) Ab <20 <20 Units 1:10 PM EDT [facility] Comment: This test was developed and its performance characteristics determined by [facility]. It has not been cleared or approved by the Food and Drug Administration. Anti-PM/Scl-100 Ab <20 <20 Units 2024 1:10 PM EDT [facility] Comment: This test was developed and its performance characteristics determined by [facility]. It has not been cleared or approved by the Food and Drug Administration. U2 snRNP Ab Negative Negative 11/16/2024 1:10 PM EDT [facility] Comment: This test was developed and its performance characteristics determined by [facility]. It has not been cleared or approved by the Food and Drug Administration. Anti-U1-TYPIST Ab <20 <20 Units 11/16/2024 1:10 PM EDT [facility] Ku Ab Negative Negative 11/16/2024 1:10 PM EDT [facility] Comment: This test was developed and its performance characteristics determined by [facility]. It has not been cleared or approved by the Food and Drug Administration. Anti-SS-A 52 kD Ab, IgG <20 <20 Units 11/16/2024 1:10 PM EDT [facility] Comment: This test was developed and its performance characteristics determined by [facility]. It has not been cleared or approved by the Food and Drug Administration. Fibrillarin (U3 TYPIST) Ab Negative Negative 11/16/2024 1:10 PM EDT [facility] Comment: This test was developed and its performance characteristics determined by [facility]. It has not been cleared or approved by the Food and Drug Administration. Interpretation for Anti-Dottie-1, [id number], Anti-MDA-5, Anti-NXP-2, Anti-PM/Scl-100, Anti-SS-A 52 kD, Anti-U1 TYPIST: Negative: <20 Weak Positive: 20 - 39 Moderate Positive: 40 - 80 Strong Positive: >80 . Test Performed by: [facility] [address] [place] [address] Blood Venous blood specimen / Unknown Venipuncture / Unknown 10/31/2024 1:39 PM EDT 10/31/2024 1:39 PM EDT us Latesha France MD LAB BLOOD ORDERABLES Final Result [facility] [address] [place] [address] * (ABNORMAL) Vitamin D 25 hydroxy (10/31/2024 1:39 PM EDT) Vit D, 25-Hydroxy 25.0(L) 30.0 - 80.0 ng/mL LAB CHEMISTRY METHOD 10/31/2024 5:29 PM EDT [facility] Blood Venous blood specimen / Unknown Venipuncture / Unknown 10/31/2024 1:39 PM EDT 10/31/2024 1:39 PM EDT Latesha France MD LAB BLOOD ORDERABLES Final Result [facility] [address] [place] [address], * Basic metabolic panel (10/31/2024 1:39 PM EDT) Sodium 136 133 - 145 mmol/L LAB CHEMISTRY METHOD 10/31/2024 4:33 PM [facility] Potassium 4.6 3.5 - 5.5 mmol/L LAB CHEMISTRY METHOD 10/31/2024 4:33 PM [facility] Chloride 103 96 - 110 mmol/L LAB CHEMISTRY METHOD 10/31/2024 4:33 PM [facility] CO2 29 21 - 32 mmol/L LAB CHEMISTRY METHOD 10/31/2024 4:33 PM [facility] Anion Gap 4 3 - 11 LAB CHEMISTRY METHOD 10/31/2024 4:33 PM [facility] Glucose 76 70 - 100 mg/dL LAB CHEMISTRY METHOD 10/31/2024 4:33 PM [facility] BUN 10 5 - 25 mg/dL LAB CHEMISTRY METHOD 10/31/2024 4:33 PM [facility] Creatinine 0.65 0.50 - 1.10 mg/dL LAB CHEMISTRY METHOD 10/31/2024 4:33 PM [facility] eGFR 127 >=60 mL/min/1. 73m2 LAB CHEMISTRY METHOD 10/31/2024 4:33 PM [facility] Comment:Calculation based on the Chronic Kidney Disease Epidemiology Collaboration (CKD-EPI) equation refit without adjustment for race. BUN/Creatinine Ratio 15.4 LAB CHEMISTRY METHOD 10/31/2024 4:33 PM EDT [facility] Calcium 9.7 8.5 - 10.5 mg/dL LAB CHEMISTRY METHOD 10/31/2024 4:33 PM EDT [facility] Blood Venous blood specimen / Unknown Venipuncture / Unknown 10/31/2024 1:39 PM EDT 10/31/2024 1:39 PM EDT Latesha France MD LAB BLOOD ORDERABLES Final Result Performing Organization Address City/[facility]/ZIP Co de Phone Number [facility] [address] [place] [address], [place] [phone] * Sjogrens antibodies, SSA and SSB (10/17/2024 12:22 PM EDT) Sjogren's SS-A (Ro) Ab Quant 1 <20 units LAB CHEMISTRY METHOD 10/21/2024 10:18 AM EDT [facility] Sjogren's SS-A (Ro) Ab Negative Negative LAB CHEMISTRY METHOD 10/21/2024 10:18 AM EDT [facility] Sjogren's SS-B (La) Ab Quant 2 <20 units LAB CHEMISTRY METHOD 10/21/2024 10:18 AM EDT [facility] Sjogren's SS-B (La) Ab Negative Negative LAB CHEMISTRY METHOD 10/21/2024 10:18 AM EDT [facility] Blood Venous blood specimen / Unknown Venipuncture / Unknown 10/17/2024 12:22 PM EDT 10/17/2024 12:22 PM EDT Latesha France MD LAB BLOOD ORDERABLES Final Result Performing Organization Address City/[facility]/ZIP Co de Phone Number [facility] [address] [place] [address], [place] [phone] * Myocardial antibody IgG, reflex to titer (10/17/2024 12:22 PM EDT) Myocardial Antibody Screen, IFA NEGATIVE NEGATIVE 10/25/2024 1:40 AM EDT [facility] Comment: This test was developed and its analytical performance characteristics have been determined by [facility]. It has not been cleared or approved by the FDA. This assay has been validated pursuant to the CLIA regulations and is used for clinical purposes. Myocardial Antibody Titer TNP 10/25/2024 1:40 AM EDT [facility] Comment: Test Not Performed. Screening test Negative or Not Detected. Titer not performed. Test Performed at: [facility] [address] [id number] Melba Anna MD, PhD, AZIZA Comment added after verification. Original result, verified by I/AUT at 01:40 on 10/25/2024 Blood Venous blood specimen / Unknown Venipuncture / Unknown 10/17/2024 12:22 PM EDT 10/17/2024 12:22 PM EDT Latesha France MD LAB BLOOD ORDERABLES Edited Result - Final [facility] [address] [place] [address] * Thyroid peroxidase antibody (10/17/2024 12:22 PM EDT) Pathologist [facility] Thyroid Peroxidase Ab 60.0 <=60.0 I Unit/mL LAB CHEMISTRY METHOD 10/17/2024 4:26 PM EDT [facility] Blood Venous blood specimen / Unknown Venipuncture / Unknown 10/17/2024 12:22 PM EDT 10/17/2024 12:22 PM EDT Latesha France MD LAB BLOOD ORDERABLES Final Result [facility] [address] [place] [address], * Iron and TIBC (10/17/2024 12:22 PM EDT) Only the most recent of2 resultswithin the time period is included. Iron 128 40 - 150 mcg/dL LAB CHEMISTRY METHOD 10/17/2024 3:07 PM EDT [facility] TIBC 365 250 - 450 mcg/dL LAB CHEMISTRY METHOD 10/17/2024 3:07 PM EDT [facility] Iron Saturation 35 15 - 50 % LAB CHEMISTRY METHOD 10/17/2024 3:07 PM EDT [facility] Blood Venous blood specimen / Unknown Venipuncture / Unknown 10/17/2024 12:22 PM EDT 10/17/2024 12:22 PM EDT Latesha France MD LAB BLOOD ORDERABLES Final Result Performing Organization Address City/[facility]/ZIP Co de Phone Number [facility] [address] [place] [address], [place] [phone] * Smooth muscle antibody IgG (10/17/2024 12:22 PM EDT) [facility] Smooth Muscle (F-Actin) IgG Ab 5 <20 UNITS 10/22/2024 2:00 PM EDT [facility] Comment: Interpretation: Negative Test performed at [facility], [address], [place], [place] [id number] Darcy Parker MD, PhD - Certified Court/Medical Interpreter Blood Venous blood specimen / Unknown Venipuncture / Unknown 10/17/2024 12:22 PM EDT 10/17/2024 12:22 PM EDT Latesha France MD LAB BLOOD ORDERABLES Final Result [facility] [address] [place] [address] * Anti-scleroderma antibody (10/17/2024 12:22 PM EDT) Pathologist [facility] Scleroderma SCL - 70 Negative Negative LAB CHEMISTRY METHOD 10/21/2024 10:18 AM EDT [facility] Blood Venous blood specimen / Unknown Venipuncture / Unknown 10/17/2024 12:22 PM EDT 10/17/2024 12:22 PM EDT Latesha France MD LAB BLOOD ORDERABLES Final Result Performing Organization Address [facility]/ZIP Co de Phone Number [facility] [address] [place] [address], [place] [phone] * DNA antibody, double-stranded (10/17/2024 12:22 PM EDT) [facility] Anti-DNA Double Stranded Antibody Negative Negative LAB CHEMISTRY METHOD 10/21/2024 10:17 AM EDT [facility] ds DNA Ab 31 <=200 I Unit/mL LAB CHEMISTRY METHOD 10/21/2024 10:17 AM EDT [facility] Blood Venous blood specimen / Unknown Venipuncture / Unknown 10/17/2024 12:22 PM EDT 10/17/2024 12:22 PM EDT us Latesha France MD LAB BLOOD ORDERABLES Final Result Performing Organization Address [facility]/ZIP Co de Phone Number [facility] [address] [place] [address], [place] [phone] * Anti-parietal antibody (10/17/2024 12:22 PM EDT) [facility] Gastric Parietal Cell Ab 1.4 <=20 UNITS 10/26/2024 1:27 PM EDT [facility] Comment: Interpretation: Negative Test performed at [facility], [address] , [place] [address] Darcy Parker MD, PhD - Certified Court/Medical Interpreter Blood Venous blood specimen / Unknown Venipuncture / Unknown 10/17/2024 12:22 PM EDT 10/17/2024 12:22 PM EDT us Latesha France MD LAB BLOOD ORDERABLES Final Result [facility] [place] [place] [address] * Antimitochondrial antibody (10/17/2024 12:22 PM EDT) Pathologist [facility] Mitochondrial Antibody Quantitative 13.7 <=20.0 units LAB CHEMISTRY METHOD 10/24/2024 11:29 AM EDT [facility] Mitochondrial Antibody Qualitative Negative Negative LAB CHEMISTRY METHOD 10/24/2024 11:29 AM EDT [facility] Blood Venous blood specimen / Unknown Venipuncture / Unknown 10/17/2024 12:22 PM EDT 10/17/2024 12:22 PM EDT Latesha France MD LAB BLOOD ORDERABLES Final Result Performing Organization Address [facility] Co de Phone Number [facility] [address] [place] [address], [place] [phone] * Rheumatoid factor (10/17/2024 12:22 PM EDT) [facility] Rheumatoid Factor <10.0 <15.0 I Unit/mL LAB CHEMISTRY METHOD 10/17/2024 3:07 PM EDT [facility] Blood Venous blood specimen / Unknown Venipuncture / Unknown 10/17/2024 12:22 PM EDT 10/17/2024 12:22 PM EDT us Latesha France MD LAB BLOOD ORDERABLES Final Result Performing Organization Address City/[facility]/ZIP Co de Phone Number [facility] [address] [place] [address], [place] [phone] * C3 complement (10/17/2024 12:22 PM EDT) C3 Complement 127 88 - 201 mg/dL LAB CHEMISTRY METHOD 10/17/2024 3:07 PM EDT [facility] Blood Venous blood specimen / Unknown Venipuncture / Unknown 10/17/2024 12:22 PM EDT 10/17/2024 12:22 PM EDT Latesha France MD LAB BLOOD ORDERABLES Final Result Performing Organization Address City/[facility]/ZIP Co de Phone Number [facility] [address] [place] [address], [place] [phone] * C4 complement (10/17/2024 12:22 PM EDT) C4 Complement 30 16 - 47 mg/dL LAB CHEMISTRY METHOD 10/17/2024 3:07 PM EDT [facility] Blood Venous blood specimen / Unknown Venipuncture / Unknown 10/17/2024 12:22 PM EDT 10/17/2024 12:22 PM EDT us Latesha France MD LAB BLOOD ORDERABLES Final Result Performing Organization Address City/[facility]/ZIP Co de Phone Number [facility] [address] [place] [address], [place] [phone] * Thyroid stimulating hormone with reflex to free t4 and free t3 (10/02/2024 2:28 PM EDT) TSH 1.35 0.40 - 4.00 mcIU/mL LAB CHEMISTRY METHOD 10/02/2024 7:20 PM EDT [facility] Blood Venous blood specimen / Unknown Venipuncture / Unknown 10/02/2024 2:28 PM EDT 10/02/2024 2:29 PM EDT us Latesha France MD LAB BLOOD ORDERABLES Final Result [facility] [address] [place] [address], * CBC auto differential (10/02/2024 2:28 PM EDT) WBC 6.2 4.8 - 10.8 K/mcL LAB HEMETOLOGY METHOD 10/02/2024 5:06 PM EDT [facility] RBC 4.40 3.80 - 4.80 M/mcL LAB HEMETOLOGY METHOD 10/02/2024 5:06 PM EDT [facility] Hemoglobin 12.7 11.5 - 16.0 g/dL LAB HEMETOLOGY METHOD 10/02/2024 5:06 PM EDT [facility] Hematocrit 38.1 35.0 - 47.0 % LAB HEMETOLOGY METHOD 10/02/2024 5:06 PM EDT [facility] MCV 87.4 79.0 - 98.0 FL LAB HEMETOLOGY METHOD 10/02/2024 5:06 PM EDT [facility] MCH 29.1 27.0 - 32.0 pcg LAB HEMETOLOGY METHOD 10/02/2024 5:06 PM EDT [facility] MCHC 33.3 32.0 - 37.0 g/dL LAB HEMETOLOGY METHOD 10/02/2024 5:06 PM EDT [facility] RDW 12.2 11.0 - 15.0 % LAB HEMETOLOGY METHOD 10/02/2024 5:06 PM EDT [facility] Platelets 311 130 - 400 K/mcL LAB HEMETOLOGY METHOD 10/02/2024 5:06 PM EDT [facility] MPV 10.6 7.0 - 11.0 FL LAB HEMETOLOGY METHOD 10/02/2024 5:06 PM EDT [facility] NRBC 0.0 <1.0 % LAB HEMETOLOGY METHOD 10/02/2024 5:06 PM [facility] NRBC Absolute 0.00 <0.10 K/mcL LAB HEMETOLOGY METHOD 10/02/2024 5:06 PM [facility] Neutrophils Relative 53.7 % LAB HEMETOLOGY METHOD 10/02/2024 5:06 PM [facility] Lymphocytes Relative 34.2 % LAB HEMETOLOGY METHOD 10/02/2024 5:06 PM [facility] Monocytes Relative 6.4 % LAB HEMETOLOGY METHOD 10/02/2024 5:06 PM [facility] Eosinophils Relative 4.8 % LAB HEMETOLOGY METHOD 10/02/2024 5:06 PM [facility] Basophils Relative 0.6 % LAB HEMETOLOGY METHOD 10/02/2024 5:06 PM [facility] Immature Granulocytes Relative 0.3 % LAB HEMETOLOGY METHOD 10/02/2024 5:06 PM [facility] Neutrophils Absolute 3.33 1.50 - 7.00 K/mcL LAB HEMETOLOGY METHOD 10/02/2024 5:06 PM [facility] Lymphocytes Absolute 2.13 1.00 - 5.00 K/mcL LAB HEMETOLOGY METHOD 10/02/2024 5:06 PM [facility] Monocytes Absolute 0.40 0.20 - 1.00 K/mcL LAB HEMETOLOGY METHOD 10/02/2024 5:06 PM [facility] Eosinophils Absolute 0.30 0.00 - 0.50 K/mcL LAB HEMETOLOGY METHOD 10/02/2024 5:06 PM [facility] Basophils Absolute 0.04 0.00 - 0.20 K/mcL LAB HEMETOLOGY METHOD 10/02/2024 5:06 PM [facility] Immature Granulocytes Absolute 0.02 0.00 - 0.03 K/mcL LAB HEMETOLOGY METHOD 10/02/2024 5:06 PM EDT [facility] Blood Venous blood specimen / Unknown Venipuncture / Unknown 10/02/2024 2:28 PM EDT 10/02/2024 2:29 PM EDT Latesha France MD LAB BLOOD ORDERABLES Final Result Performing Organization Address City/[facility]/ZIP Co de Phone Number [facility] [address] [place] [address], [place] [phone] * Creatine kinase (10/02/2024 2:28 PM EDT) Pathologist [facility] Total CK 59 22 - 269 unit/L LAB CHEMISTRY METHOD 10/02/2024 8:29 PM EDT [facility] Blood Venous blood specimen / Unknown Venipuncture / Unknown 10/02/2024 2:28 PM EDT 10/02/2024 2:29 PM EDT Latesha France MD LAB BLOOD ORDERABLES Final Result Performing Organization Address [facility]/ZIP Co de Phone Number [facility] [address] [place] [address], [place] [phone] * (ABNORMAL) Comprehensive metabolic panel (10/02/2024 2:28 PM EDT) Pathologist [facility] Sodium 136 133 - 145 mmol/L LAB CHEMISTRY METHOD 10/02/2024 8:29 PM EDT [facility] Potassium 4.4 3.5 - 5.5 mmol/L LAB CHEMISTRY METHOD 10/02/2024 8:29 PM EDT [facility] Chloride 104 96 - 110 mmol/L LAB CHEMISTRY METHOD 10/02/2024 8:29 PM EDT [facility] CO2 26 21 - 32 mmol/L LAB CHEMISTRY METHOD 10/02/2024 8:29 PM [facility] Anion Gap 6 3 - 11 LAB CHEMISTRY METHOD 10/02/2024 8:29 PM [facility] Glucose 90 70 - 100 mg/dL LAB CHEMISTRY METHOD 10/02/2024 8:29 PM [facility] BUN 9 5 - 25 mg/dL LAB CHEMISTRY METHOD 10/02/2024 8:29 PM [facility] Creatinine 0.67 0.50 - 1.10 mg/dL LAB CHEMISTRY METHOD 10/02/2024 8:29 PM [facility] eGFR 126 >=60 mL/min/1. 73m2 LAB CHEMISTRY METHOD 10/02/2024 8:29 PM [facility] Comment:Calculation based on the Chronic Kidney Disease Epidemiology Collaboration (CKD-EPI) equation refit without adjustment for race. BUN/Creatinine Ratio 13.4 LAB CHEMISTRY METHOD 10/02/2024 8:29 PM [facility] Calcium 10.1 8.5 - 10.5 mg/dL LAB CHEMISTRY METHOD 10/02/2024 8:29 PM [facility] AST (SGOT) 6(L) 10 - 42 unit/L LAB CHEMISTRY METHOD 10/02/2024 8:29 PM [facility] ALT (SGPT) 18 10 - 60 unit/L LAB CHEMISTRY METHOD 10/02/2024 8:29 PM [facility] Alkaline Phosphatase 54 42 - 121 unit/L LAB CHEMISTRY METHOD 10/02/2024 8:29 PM [facility] Total Protein 8.0 6.0 - 8.0 g/dL LAB CHEMISTRY METHOD 10/02/2024 8:29 PM [facility] Albumin 4.7 3.2 - 5.0 g/dL LAB CHEMISTRY METHOD 10/02/2024 8:29 PM [facility] Total Bilirubin 0.3 0.0 - 1.4 mg/dL LAB CHEMISTRY METHOD 10/02/2024 8:29 PM EDT [facility] Blood Venous blood specimen / Unknown Venipuncture / Unknown 10/02/2024 2:28 PM EDT 10/02/2024 2:29 PM EDT us Latesha France MD LAB BLOOD ORDERABLES Final Result [facility] [address] [place] [address], [place] [phone] * Exercise stress test (09/12/2024 1:42 PM EDT) Target HR 167 bpm CV STRESS ONLY Baseline HR 73 bpm CV STRES S ONLY Baseline SBP 102 mmHg CV STRE SS ONLY Baseline DBP 68 mmHg CV STRE SS ONLY Peak HR 183 bpm CV STRESS ONLY Peak SBP 150 mmHg CV STRESS ONLY Peak DBP 70 mmHg CV STRESS ONLY Estimated workload 10.3 METS CV STRESS ONLY Rate Pressure Product 27,450.0 mmHg*bpm CV STRESS ONLY Percent HR 93 % CV STRESS ONLY Exercise/inject ion duration (min) 8 min CV STRESS ONLY Exercise/inject ion duration (sec) 37 sec CV STRESS ONLY Angina Index 0 CV STRE SS ONLY Chris Treadmill Score [address] Depression (mm) 0 mm CV STRESS ONLY Anatomical Region Laterality Modality Cardiac Diagnost ic Narrative 09/25/2024 6:18 PM EDT Stress ECG was normal. Exercise stress test was performed. Patient reported no symptoms during the stress test. Exercise capacity was average. Normal blood pressure response. Stress: Overall, the patient's exercise capacity was average. Total stress time was 8 min and 37 sec. Jogging in stage 3. 10.3 MET workload achieved. The patient reported no symptoms during the stress test. ECG: The result of the stress ECG was negative for ischemia. Impression: Normal exercise stress test without any evidence of ischemia on EKG. Normal hemodynamic response to exercise. Stress Findings A Hardeep protocol stress test was performed. Overall, the patient's exercise capacity was average. Total stress time was 8 min and 37 sec. Jogging in stage 3. 10.3 MET workload achieved. The patient experienced no angina during the test. The test was stopped because the patient experienced fatigue. The Chris Treadmill Score is 9. The patient's hemodynamic response was adequate for diagnosis. Blood pressure demonstrated a normal response. Heart rate demonstrated a normal response. The patient reported no symptoms during the stress test. ECG 24 yo female with palpitations and SENIOR. The ECG shows normal sinus rhythm. There were no arrhythmias during stress. There is no ST segment changes during stress. There were no arrhythmias during recovery. The result of the stress ECG was negative for ischemia. Yamilex Eagle NP CV STRESS PROCEDURES Final Res ult * POC , urine manually resulted (08/22/2024 2:00 PM EDT) Pathologist [facility] HCG, Ur POC Negative Negative POC hCG Int QC Pass? Yes Yes Urine Urine specimen obtained by clean catch procedure / Unknown 08/22/2024 2:00 PM EDT Mindy Flower CNM POINT OF CARE TEST ENTER/ED IT ORDERABLES Final Result * Lipid panel with reflex to direct LDL (07/19/2024 1:38 PM EDT) [facility] Cholesterol 142 0 - 200 mg/dL LAB CHEMISTRY METHOD 07/19/2024 5:47 PM EDT [facility] Triglycerides 54 0 - 150 mg/dL LAB CHEMISTRY METHOD 07/19/2024 5:47 PM EDT [facility] HDL 63 >=40 mg/dL LAB CHEMISTRY METHOD 07/19/2024 5:47 PM EDT [facility] LDL Calculated 68 0 - 100 mg/dL LAB CHEMISTRY METHOD 07/19/2024 5:47 PM EDT [facility] VLDL Cholesterol Nahid 10.8 mg/dL LAB CHEMISTRY METHOD 07/19/2024 5:47 PM EDT [facility] Non HDL Chol. (LDL+VLDL) 79 <145 mg/dL LAB CHEMISTRY METHOD 07/19/2024 5:47 PM EDT [facility] Chol/HDL Ratio 2.3 0.0 - 4.4 LAB CHEMISTRY METHOD 07/19/2024 5:47 PM EDT [facility] Blood Venous blood specimen / Unknown Venipuncture / Unknown 07/19/2024 1:38 PM EDT 07/19/2024 1:38 PM EDT Latesha France MD LAB BLOOD ORDERABLES Final Result [facility] [address] [place] [address], [place] [phone] * Chlamydia trachomatis and Neisseria gonorrhoeae molecular study (04/30/2024 10:52 AM EST) [facility] Neisseria gonorrhoeae PCR Negative Negative LAB MOLECULAR DIAGNOSTICS METHOD 05/01/2024 7:20 AM EST [facility] Chlamydia trachomatis PCR Negative Negative LAB MOLECULAR DIAGNOSTICS METHOD 05/01/2024 7:20 AM EST [facility] Swab Cervix uteri structure / Unknown Non-blood Collection / Unknown 04/30/2024 10:52 AM EST 04/30/2024 10:53 AM EST Sally Kinney CNM LAB MICROBIOLOGY - GENERAL ORDAustin MUÑIZ Final Result Performing Organization Address City/[facility]/ZIP Co de Phone Number [facility] [address] [place] [address], [place] [phone] * Cervical Cancer Screening: HPV (08/30/2023) Pathologist [facility] Cervical Cancer Screening: HPV abstracted; no interpretation Historical Provider HEALTH MAINTENANCE Final Result * Depression Screening (07/29/2023) Pathologist [facility] Depression Screening abstracted Historical Provider HEALTH MAINTENANCE Final Result from Last 3 Months or Most Recently Relevant to Health Maintenance Insurance [facility] Care Teams Photo Studio Assistant Relationship Specialty Start Date End Date Latesha France MD [address] [place] [address] PCP - General Internal Medicine 02/13/24
[2024-11-20 18:32] LABS: MANUAL DIFF FLAG NO
[2024-11-20 18:35] LABS: Hematocrit 37.3 % (37.0-47.0); Hemoglobin 12.8 g/dl (12.0-16.0); Imm Gran Abs Auto 0.02 X10*3/uL (0.00-0.03); Imm Gran Pct Auto 0.3 % (0.0-0.4); Lymphocytes Absolute Auto 2.0 X10*3/uL (1.2-4.9); Mean Corpuscular HGB Conc 34.3 g/dl (31.0-35.0); Mean Corpuscular Hemoglobin 29.8 pg (27.0-33.0); Mean Corpuscular Volume 86.9 fL (80.0-98.0); NRBC Abs Auto 0.000 X10*3/uL (0.0-0.012); NRBC Pct Auto 0.0 /100WBC (0.0-0.2); Platelet Count 326 X10*3/uL (160-400); Red Blood Count 4.29 X10*6/uL (4.20-5.50); White Blood Count 7.1 X10*3/uL (4.8-10.8)
[2024-11-20 19:00] LABS: Alanine Aminotransferase 16 U/L (0-31); Albumin Level 4.9 g/dL (3.5-5.0); Alkaline Phosphatase 54 U/L (39-117); Anion Gap 12 (12-20); Aspartate Amino Transferase 20 U/L (5-31); Blood Urea Nitrogen 7 mg/dL (9-16); Calcium 9.3 mg/dL (8.4-10.2); Carbon Dioxide 24 mmol/L (22-29); Chloride 107 mmol/L (96-108); Creatinine Clr Calc Pharmacy 81.7; Estimated Glomerular Filt Rate > 60; Potassium 4.2 mmol/L (3.3-5.1); Sodium 139 mmol/L (135-145); Total Protein 7.5 g/dL (6.5-8.0)
[2024-11-20 19:09] VITALS: BP 95/68; PULSE 82; RESP 16; TEMP 36.7; O2SAT 100
[2024-11-20 19:48] LABS: Appearance Urine Clear; Glucose Urine UA Negative (Negative); PH 7.5 (5.0-9.0); Specific Gravity - Urine 1.010 (1.005-1.025); UMIC TRIGGER UACC YES
[2024-11-20 19:53] LABS: UACC Culture Trigger YES
--- NOTE | 2024-11-20 19:59 | MHC.EDTECH ---
pt ambulated to and from bathroom with a steady gait. No complaints were made. UA collected and sent to lab
[2024-11-20 20:45] VITALS: BP 106/63; PULSE 85; RESP 11; O2SAT 100
--- NOTE | 2024-11-20 22:11 | PC.NURSE ---
pt requesting to leave as she reports she has been waiting too long and cannot wait any longer at this time. Pt inquired about information surround our [email or web address] system and was provided with the necessary information
== END 2024-11-20 22:41 | disposition left against medical advice (07) ==
PROVIDERS: Emergency Provider Emergency Medicine; PCP Internal Medicine
DX: R10.2 Pelvic and perineal pain (principal); R50.9 Fever, unspecified
CPT/HCPCS: 36415; 80053; 81001; 84702; 85025; 87086; 99281; 99284

== ENCOUNTER 2024-11-21 17:26 | Emergency (ER) | payer OTHER, SELFPAY ==
--- NOTE | ~2024-11-21 | CT_ITS ---
CLINICAL HISTORY: abdominal pain CT abdomen and pelvis with contrast Comparison: None provided Findings: Significant respiratory motion. The lung bases are clear. The gallbladder and solid organs are within normal limits. No renal stones. No bowel obstruction, pneumoperitoneum, or pneumatosis. Pelvic contents unremarkable. Normal appendix. No acute fracture. IMPRESSION: No acute findings. This document has been electronically signed by: Nguyễn Craft MD on 11/22/2024 02:15:09
[2024-11-21 18:02] VITALS: BP 118/62; PULSE 93; RESP 18; TEMP 36.8; O2SAT 100; BMI 21.5
--- NOTE | 2024-11-21 18:02 | ED.ABDPAIN ---
HPI - Abdominal Pain General Chief Complaint: Abdominal Pain Stated Complaint: was here yesterday, increase abd pain Time Seen by Provider: 11/21/24 23:08 Source: patient Mode of arrival: ambulatory Limitations: no limitations History of Present Illness ED Provider: Dr. Pettit HPI narrative: This is a 24-year-old female presented hospital today for bilateral lower abdominal pain. Patient stated it is mostly on the right side right lower quadrant area. Denies any discharge denies any fever denies any dysuria. Patient stated that she has some nausea. It is achy pain. No history surgery in the past. Related Data Home Medications ?Medication ?Instructions ?Recorded ?Confirmed adapalene 0.1 % topical gel 1 appl topical BEDTIME 09/12/24 benzoyl peroxide 2.5 % topical 1 appl topical BID 09/12/24 cleanser dicyclomine 10 mg capsule 10 mg PO QID 09/12/24 fluticasone propionate 50 2 spray intranasal DAILY 09/12/24 mcg/actuation nasal spray,suspension propranolol 10 mg tablet 10 mg PO ONCE 09/12/24 triamcinolone acetonide 0.1 % 1 appl topical BID 09/12/24 topical cream Previous Rx's ?Medication ?Instructions ?Recorded ondansetron 4 mg disintegrating 4 mg PO Q8H 3 days #9 tabs 06/18/23 tablet bknavrdhxp-fjvtrmlizixem-rqrgdbtk 1 cap PO TID PRN pain #14 caps 06/19/23 50 mg-300 mg-40 mg capsule (Fioricet) ketorolac 10 mg tablet 10 mg PO Q8H PRN pain #10 tabs 06/19/23 benzonatate 150 mg capsule 150 mg PO TID PRN cough #14 caps 09/27/23 cholecalciferol (vitamin D3) 25 25 mcg PO DAILY insufficient 09/27/24 mcg (1,000 unit) capsule vitamin D 3 months #90 caps nqmhwooyhx-dntragphuonbs-ketelvuc 1 tab PO Q6H PRN haeadace #20 tabs 10/03/24 50 mg-325 mg-40 mg tablet ferrous sulfate 325 mg (65 mg 325 mg PO DAILY low ferritin 60 10/03/24 iron) tablet days #60 tabs mecobalamin (vitamin B12) 1,000 1,000 mcg PO DAILY low b12 3 10/03/24 mcg chewable tablet months #90 tabs gabapentin 100 mg capsule See Rx Instructions PO BEDTIME 30 10/26/24 days #90 caps acetaminophen 500 mg capsule 1,000 mg (2 x 500 mg) PO .q8 PRN 11/01/24 fever or pain #30 caps ibuprofen 600 mg tablet 600 mg PO Q8H PRN fever or pain 11/01/24 #30 tabs cephalexin 500 mg capsule 500 mg PO TID 7 days #21 caps 11/22/24 Allergies Allergy/AdvReac Type Severity Reaction Status Date / Time paper tape Allergy Intermediate Rash Uncoded 11/21/24 18:08 Review of Systems Review of Systems Pertinent review of systems as mentioned in HPI. All other system otherwise negative. [facility] Past Medical History [facility] Narrative: Medical history as mentioned in HPI Medical History Somatization disorder Personality disorder Conversion disorder with seizures or convulsions Seizure Vasovagal syncope Syncope Sinus tachycardia PTSD (post-traumatic stress disorder) Moderate intellectual disabilities Migraine without status migrainosus, not intractable Menorrhagia with regular cycle Hypotension Insomnia Anxiety Migraine Family History Family History (Updated 09/26/24 @ 19:36 by Martha Rangel MA) Mother Headache Social History Social History Unable to assess alcohol history related to: Unable to respond Alcohol intake: never Patient Tobacco Use Status: Never used Tobacco Smoked in Last 30 Days: No e-Cigarette/Vaping Use: Never Used Use of substances other than those prescribed or required for medical reasons: No Advance Directives: No Advance Directives Information Provided: Yes Do you have a plan to hurt others: No Plan Physical Exam ED Exam Exam: General: Pleasant, no distress, interacting appropriately Head: Normacephalic, atraumatic ENT: oral mucosa moist, neck supple, no tracheal deviation Gastrointestinal: Soft, non distended, right lower quadrant tenderness on palpation, no rebound tenderness, no acute surgical abdomen on exam Neurological: Awake and alert, no facial droop noted Skin: Warm and dry Psychiatric: Appropriate mood and thoughts Vital Signs: Vital Signs - 24 hr 11/21/24 18:02 11/21/24 22:00 11/22/24 00:00 Temperature 98.2 F 98.0 F 97.6 F Pulse Rate 93 81 84 Respiratory Rate 18 18 16 Blood Pressure 118/62 117/63 107/70 Pulse Oximetry 100 97 99 Oxygen Delivery Method Room Air Room Air Room Air BMI result Body Mass Index 21.5 Course Course Course Narrative: This is an RME: Additional HPI, ROS, PE not included below will be deferred to primary provider. RME assessment and note performed by: Cassie Nunes PA-C This is a 28-wn[age]-female, with a hx of , who presents to the ER with complaints of lower abdominal pain x 8 days. No fevers, chills. no pain with urination, reports urinary frequency. BM x 3 > constipation. Pain suprapubic. No vaginal discharge/bleeding. Plan: Labs, UA, further ER eval needed Medical Decision Making Medical Decision Making [facility] Narrative: 24-year-old female presented hospital today for evaluation of right lower quadrant abdominal pain. Patient abdominal lab work were obtained no sign of leukocytosis, patient chemistries unremarkable, lipase is not elevated. Beta HCG is negative patient's UA did not show any signs of UTI. However patient's UA from yesterday did show signs of UTI. We will plan to treat patient for UTI. CT imaging was negative for any signs of appendicitis. We will plan to give patient a dose of Keflex here to treat for UTI. We will send patient home with a course of Keflex to take. Patient appears to be well on my exam. Does not appear to be in severe acute pain. Denies any vaginal discharge. Patient will be discharged Differential Diagnosis Differential Diagnoses: The differential diagnosis associated with the presentation includes Appendicitis, colitis, UTI, pyelonephritis, STD Lab Data [facility] Lab Attestation statement: I reviewed the patient's lab results. 11/21/24 18:25 11/21/24 18:25 Labs: Lab Results 11/21/24 11/22/24 Range/Units 18:25 00:06 WBC 6.4 (4.8-10.8) X10*3/uL RBC 4.35 (4.20-5.50) X10*6/uL Hgb 13.4 (12.0-16.0) g/dl Hct 38.3 (37.0-47.0) % MCV 88.0 (80.0-98.0) fL MCH 30.8 (27.0-33.0) pg MCHC 35.0 (31.0-35.0) g/dl RDW 12.3 (11.0-16.0) % Plt Count 315 (160-400) X10*3/uL MPV 10.2 (9.4-12.3) fL Immature Gran % (Auto) 0.3 (0.0-0.4) % Neut % (Auto) 56.7 (45-73) % Lymph % (Auto) 30.1 (20-40) % O[place] % (Auto) 7.7 (2-11) % Eos % (Auto) 4.9 H (0-4) % Baso % (Auto) 0.3 (0-2) % Lymph # (Auto) 1.9 (1.2-4.9) X10*3/uL [place] # (Auto) 0.5 (0.1-1.2) X10*3/uL Eos # (Auto) 0.3 (0.0-0.4) X10*3/uL Baso # (Auto) 0.0 (0.0-0.2) X10*3/uL Abs Immat Gran (auto) 0.02 (0.00-0.03) X10*3/uL Absolute Neuts (auto) 3.6 (2.0-8.3) x10*3/uL Absolute Nucleated RBC 0.000 (0.0-0.012) X10*3/uL Nucleated RBC % (auto) 0.0 (0.0-0.2) /100WBC Sodium 138 (135-145) mmol/L Potassium 4.5 (3.3-5.1) mmol/L Chloride 108 (96-108) mmol/L Carbon Dioxide 22 (22-29) mmol/L Anion Gap 13 (12-20) BUN 7 L (9-16) mg/dL Creatinine 0.88 (0.5-1.4) mg/dL Estim Creat Clear Calc 67.7 Estimated GFR > 60 Random Glucose 74 (60-115) mg/dL Calcium 9.2 (8.4-10.2) mg/dL Magnesium 2.0 (1.6-2.6) mg/dL Total Bilirubin 0.5 (0.0-1.0) mg/dL Direct Bilirubin 0.2 (0.0-0.5) mg/dL AST 22 (5-31) U/L ALT 15 (0-31) U/L Alkaline Phosphatase 53 (39-117) U/L Total Protein 7.5 (6.5-8.0) g/dL Albumin 4.7 (3.5-5.0) g/dL Lipase 28 (8-78) U/L Beta HCG, Quant < 2 mIU/mL Urine Color Yellow Urine Appearance Clear Urine pH 7.0 (5.0-9.0) Ur Specific [place] 1.015 (1.005-1.025) Urine Protein Negative (Neg-Trace) mg/dL Urine Glucose (UA) Negative (Negative) mg/dL Urine Ketones Negative (Negative) mg/dL Urine Blood Negative (Negative) Urine Nitrite Negative (Negative) Ur Leukocyte Esterase Negative (Negative) Independent Interpretation I performed an independent interpretation of an: CT Scan Radiology Impression Discussion of test interpretation with radiology: I have reviewed the radiologist's reading. Medications Administered Discontinued Medications Generic Name Dose Route Start Last Admin Trade Name Freq PRN Reason Stop Dose Admin Iohexol 85 ml 11/22/24 01:11 11/22/24 01:12 Iohexol 350 Mg/Ml 100 Ml Infus..Btl IV 11/22/24 01:12 85 ml ONCE ONE Administration Ketorolac Tromethamine 15 mg 11/22/24 00:11 11/22/24 01:00 Ketorolac Tromethamine 15 Mg/Ml Vial IVPUSH 11/22/24 00:12 15 mg ONCE ONE Administration Ondansetron HCl 4 mg 11/22/24 00:12 11/22/24 01:00 Ondansetron Hcl 4 Mg/2 Ml Vial IVPUSH 11/22/24 00:13 4 mg ONCE ONE Administration Discharge Plan Discharge Clinical Impression: Abdominal pain Qualifiers: Abdominal location: unspecified location Qualified Code(s): R10.9 - Unspecified abdominal pain Patient Disposition: Home, Self-Care Additional Instructions: Return to the ED if your pain worsens. Follow up with your primary care doctor and BUILDING CUSTODIAN doctor. Perhaps this may be from your depo shot. Prescriptions: No Action cholecalciferol (vitamin D3) 25 mcg (1,000 unit) capsule 25 mcg PO DAILY MDD 1000 unit 90 Days Qty: 90 0RF Rx Instructions: take one capsule daily by mouth at bedtime. mecobalamin (vitamin B12) 1,000 mcg tablet,chewable 1,000 mcg PO DAILY MDD 1000mcg 90 Days Qty: 90 0RF Rx Instructions: take one tablet of chewable 1000mcg b12 by mouth at bedtime. flgcobhtbb-gdegqvpvkjkhc-artk 50-325-40 mg tablet 1 tab PO Q6H PRN (Reason: haeadace) Qty: 20 0RF ferrous sulfate 325 mg (65 mg iron) tablet 325 mg PO DAILY MDD 325mg 60 Days Qty: 60 1RF Rx Instructions: take one 325mg tablet daily with orange juice at lunch time. If you feel constipated, you may decrease to 3-4 x per week. gabapentin 100 mg capsule See Rx Instructions PO BEDTIME 30 Days Qty: 90 1RF Rx Instructions: 1-3 capsules orally bedtime; ondansetron 4 mg tablet,disintegrating 4 mg PO Q8H 3 Days Qty: 9 0RF zijimgvqby-qdrubdsqbveat-wvhq [Fioricet] 50-300-40 mg capsule 1 cap PO TID PRN (Reason: pain) Qty: 14 0RF ketorolac 10 mg tablet 10 mg PO Q8H PRN (Reason: pain) Qty: 10 0RF Rx Instructions: Do not use NSAIDs with this medication benzonatate 150 mg capsule 150 mg PO TID PRN (Reason: cough) Qty: 14 0RF ibuprofen 600 mg tablet 600 mg PO Q8H PRN (Reason: fever or pain) Qty: 30 0RF acetaminophen 500 mg capsule 1,000 mg PO .q8 PRN (Reason: fever or pain) Qty: 30 0RF triamcinolone acetonide 0.1 % cream 1 appl topical BID propranolol 10 mg tablet 10 mg PO ONCE fluticasone propionate 50 mcg/actuation spray,suspension 2 spray intranasal DAILY Rx Instructions: administer into each nostril dicyclomine 10 mg capsule 10 mg PO QID adapalene 0.1 % gel 1 appl topical BEDTIME benzoyl peroxide 2.5 % cleanser 1 appl topical BID Print Language: [place] Islander
[2024-11-21 18:29] LABS: MANUAL DIFF FLAG NO
[2024-11-21 18:32] LABS: Hematocrit 38.3 % (37.0-47.0); Hemoglobin 13.4 g/dl (12.0-16.0); Imm Gran Abs Auto 0.02 X10*3/uL (0.00-0.03); Imm Gran Pct Auto 0.3 % (0.0-0.4); Lymphocytes Absolute Auto 1.9 X10*3/uL (1.2-4.9); Mean Corpuscular HGB Conc 35.0 g/dl (31.0-35.0); Mean Corpuscular Hemoglobin 30.8 pg (27.0-33.0); Mean Corpuscular Volume 88.0 fL (80.0-98.0); NRBC Abs Auto 0.000 X10*3/uL (0.0-0.012); NRBC Pct Auto 0.0 /100WBC (0.0-0.2); Platelet Count 315 X10*3/uL (160-400); Red Blood Count 4.35 X10*6/uL (4.20-5.50); White Blood Count 6.4 X10*3/uL (4.8-10.8)
[2024-11-21 19:01] LABS: Alanine Aminotransferase 15 U/L (0-31); Albumin Level 4.7 g/dL (3.5-5.0); Alkaline Phosphatase 53 U/L (39-117); Anion Gap 13 (12-20); Aspartate Amino Transferase 22 U/L (5-31); Blood Urea Nitrogen 7 mg/dL (9-16); Calcium 9.2 mg/dL (8.4-10.2); Carbon Dioxide 22 mmol/L (22-29); Chloride 108 mmol/L (96-108); Creatinine Clr Calc Pharmacy 67.7; Estimated Glomerular Filt Rate > 60; Lipase 28 U/L (8-78); Magnesium 2.0 mg/dL (1.6-2.6); Potassium 4.5 mmol/L (3.3-5.1); Sodium 138 mmol/L (135-145); Total Protein 7.5 g/dL (6.5-8.0)
--- OUTSIDE RECORDS SUMMARY | 2024-11-21 21:56 | XMS_ITS | Encounter Summary ---
Author Organization [facility] Address [address] [place] [address] Care Team Providers Care Child And Family Services Worker Name Role Phone Latesha France MD Primary Care Provider [phone]- [phone] Reason for Visit * Reason Onset Date Comments Med Refill 01/25/2024 Disregard put in to system in older [facility] for refill Encounter Details Date Type Department Care Team (Late Contact Info) Description 01/25/2024 Telephone Adult Medicine [place] - [address] [phone] Latesha France MD [address] [place] [address] [phone] Social History Tobacco Use Types Packs/Day Years [...] Upcoming Encounters Date Type Department Care Team ([facility] Contact Info) Description 12/17/2024 2:30 PM EDT Office Visit Obstetrics and Gynecology - [address] [phone] Sally Kinney CNM [address] [place] [address] 02/04/2025 1:00 PM EST Clinical Support Obstetrics and Gynecology - [address] [phone] 03/22/2025 3:00 PM EST Office Visit Adult Medicine [place] - [address] [phone] Latesha France MD [address] [place] [address] documented as of this encounter Visit Diagnoses Not on filedocumented in this encounter Additional Health Concerns Infection Onset Date Last Indicated Resolved Time Respiratory Rule-Out 05/22/2024 05/22/2024 025 7:00 PM EST C. difficile Rule-Out 05/23/2024 05/22/20242024 4:54 PM EST documented as of this encounter Care Teams Child And Family Services Worker Relationship Specialty Start Date End Date Latesha France MD [address] [place] [address] PCP - General Internal Medicine 02/13/24 documented as of this encounter
--- OUTSIDE RECORDS SUMMARY | 2024-11-21 21:56 | XMS_ITS | Encounter Summary ---
Author Organization [facility] Address [address] [place] [address] Care Team Providers Care Video System Repairer Name Role Phone Latesha France MD Primary Care Provider [phone]- [phone] Reason for Visit * Reason Onset Date Comments Results 10/22/2024 Encounter Details Date Type Department Care Team (Late st Contact Info) Description 10/22/2024 Telephone Adult Medicine [facility] [address] [place] [address] Latesha France MD [address] [place] [address] Social History Tobacco Use Types Packs/Day Years [...] normal Few remains in process * Diana Grygla - 10/22/2024 11:12 AM EDT Inform patient: [...] EDT Office Visit Obstetrics and Gynecology - [address] [phone] [address] Kin[address] 02/04/2025 1:00 PM EST Clinical Support Obstetrics and Gynecology - [address] [phone] 03/22/2025 3:00 PM EST Office Visit Adult Medicine [address] [phone] Latesha France MD [address] [place] [phone] documented as of this encounter Visit Diagnoses Not on filedocumented in this encounter Care Teams Video System Repairer Relationship Specialty Start Date End Date Latesha France MD [address] [place] [address] PCP - General Internal Medicine 02/13/24 documented as of this encounter
--- OUTSIDE RECORDS SUMMARY | 2024-11-21 21:56 | XMS_ITS | Encounter Summary ---
Author Organization [facility] Address [address] [place] [address] Care Team Providers Care Quality And Reliability Engineer Name Role Phone Latesha Franec MD Primary Care Provider [phone]- [phone] Reason for Visit * Reason Onset Date Comments Medication Reaction 10/24/2024 Encounter Details Date Type Department Care Team (Late st Contact Info) Description 10/24/[address] [facility] [address] [place], [place] [phone] Latesha France MD [address] [place] [address] Social History Tobacco Use Types Packs/Day Years [...] traveled recently to another state outside of [place], [place], [place], [place], [place], [place], [place]? no o If yes, did you [...] yes, gather 3rd libertarian insurance information Third Democrat Information: not applicable PCP: Latseha France MD Payor: [facility] / Plan: [facility] MEDICAID / Product Type: *No Product type* / documented in this encounter Plan of Treatment Upcoming Encounters Date Type Department Care Team (Late st Contact Info) Description 12/17/2024 2:30 PM EDT Office Visit Obstetrics and Gynecology [address] [phone] Sally Kinney CNM [address] [place] [address] 02/04/2025 1:00 PM EST Clinical Support Obstetrics and Gynecology - [address] [phone] 03/22/2025 3:00 PM EST Office Visit Adult Medicine [address] [phone] Latesha France MD [address] [place] [address] documented as of this encounter Visit Diagnoses Not on filedocumented in this encounter Care Teams Quality And Reliability Engineer Relationship Specialty Start Date End Date Latesha France MD [address] [place] [address] PCP - General Internal Medicine 02/13/24 documented as of this encounter
--- OUTSIDE RECORDS SUMMARY | 2024-11-21 21:57 | XMS_ITS | Encounter Summary ---
Author Organization [facility] Address [address] [place] [address] Care Team Providers Care Internet Sales Manager Name Role Phone Latesha France MD Primary Care Provider Reason for Visit * Reason Onset Date Comments Cough 04/02/2024 Encounter Details Date Type Department Care Team (Late st Contact Info) Description 04/02/2024 Nurse Triage Adult Medicine [address] [phone] Latesha France MD [address] [place] [phone] Social History Tobacco Use Types Packs/Day Years [...] traveled recently to another state outside of [place], [place], [place], [place], [place], [place], [place]? no o If yes, did you quarantine [...] MD Payor: [facility] / Plan: [facility] MEDICAID / Product Type: *No Product type* / documented in this encounter Plan of Treatment Upcoming Encounters Date Type Department Care Team (Late st Contact Info) Description 12/17/2024 2:30 PM EDT Office Visit Obstetrics and Gynecology [address] [phone] Sally Kinney CNM [address] [place] [address] 02/04/2025 1:00 PM EST Clinical Support Obstetrics and Gynecology - [address] [phone] 03/22/2025 3:00 PM EST Office Visit Adult [address] [phone] Latesha France MD [address] [place] [address] documented as of this encounter Visit Diagnoses Not on filedocumented in this encounter Additional Health Concerns Infection Onset Date Last Indicated Resolved Time Respiratory Rule-Out 05/22/2024 05/22/2024 025 7:00 PM EST C. difficile Rule-Out 05/23/2024 05/22/20242024 4:54 PM EST documented as of this encounter Care Teams Internet Sales Manager Relationship Specialty Start Date End Date Latesha France MD [address] [place] [address] PCP - General Internal Medicine 02/13/24 documented as of this encounter
--- OUTSIDE RECORDS SUMMARY | 2024-11-21 21:57 | XMS_ITS | Encounter Summary ---
Author Organization [facility] Address [address] [place] [address] Care Team Providers Care Inspector Balance Bridge Name Role Phone Latesha France MD Primary Care Provider [phone]- [phone] Encounter Details Date Type Department Care Team (Late st Contact Info) Description 07/24/2024 Nurse Triage Adult Medicine [address] [phone] Latesha France MD [address] [place] [address] Social History Tobacco Use Types Packs/Day Years [...] EDT Office Visit Obstetrics and Gynecology - [address] [phone] [address] Kinney [address] 02/04/2025 1:00 PM EST Clinical Support Obstetrics and Gynecology - [address] [phone] 03/22/2025 3:00 PM EST Office Visit Adult Medicine [address] [phone] Latesha France MD [address] [place] [address] documented as of this encounter Visit Diagnoses Not on filedocumented in this encounter Care Teams Inspector Balance Bridge Relationship Specialty Start Date End Date Latesha France MD [address] [place] [address] PCP - General Internal Medicine 02/13/24 documented as of this encounter
--- OUTSIDE RECORDS SUMMARY | 2024-11-21 21:57 | XMS_ITS | Clinical Summary ---
Author Organization [facility] [address] [facility] lding Address [address] [place] [address] Phone Care Team Providers Care Python Engineer Name Role Phone Latesha France MD Primary Care Provider [phone] Allergies No known active allergies Medications fluticasone [...] Care Team Description 11/20/2024 Telephone Adult Medicine [address] [phone] Latesha France MD 11/19/2024 Telephone Obstetrics and Gynecology - [address] [phone] Gemini Bazzi CNM 11/15/2024 Telephone Adult Medicine [address] [phone] Latesha France MD 11/14/2024 Telephone Obstetrics and Gynecology [address] [phone] Sally Kinney CNM 11/12/2024 1:00 PM EDT Clinical Support Obstetrics and Gynecology - [address] [phone] Encounter for management and injection of depo-Provera (Primary Dx) 11/09/2024 7:20 AM EDT - 11/09/2024 11:59 PM EDT Hospital Encounter [facility] [address] [place] [phone] Discharge Disposition: Home or Self Care 11/07/2024 Telephone Obstetrics and Gynecology - [address] [phone] Sally Kinney CNM 11/06/2024 8:30 AM EDT Office Visit [address] [phone] Latesha France MD Enlarged tonsils (Primary Dx); Sore throat; Localized swelling on left hand 11/05/2024 Telephone Obstetrics and Gynecology [address] [phone] Sally Kinney CNM 11/02/[address] [phone] Latesha France MD 11/01/[address] [phone] Latesha France MD 10/31/2024 1:39 PM EDT - 10/31/2024 11:59 PM EDT Hospital Encounter [address] [phone] SOB (shortness of breath) Discharge Disposition: Home or Self Care 10/31/2024 1:00 PM EDT Office Visit [address] [phone] Latesha France MD Psychogenic nonepileptic seizure (Primary Dx); Vitamin D deficiency; SOB (shortness of breath) 10/29/[address] [phone] Latesha France MD 10/26/2024 Telephone [facility] [place] [address] Maria Eugenia Mccartney MD 10/26/[address] [phone] Latesha France MD 10/25/[address] [phone] Latesha France MD 10/24/[address] [phone] Latesha France MD 10/22/[address] [phone] Latesha France MD 10/19/[address] [phone] Latesha France MD 10/18/[address] [phone] Latesha France MD 10/17/2024 12:30 PM EDT Office Visit [address] [phone] Latesha France MD Other migraine without status migrainosus, not intractable (Primary Dx); Snoring; Repeated interruption of sleep during rapid eye movement stage; Vitamin D deficiency; Iron deficiency anemia, unspecified iron deficiency anemia type; Pain in both lower extremities 10/15/[address] [phone] Latesha France MD 10/12/[address] [phone] Latesha France MD 10/02/2024 2:30 PM EDT Office Visit [address] [phone] Latesha France MD Pain in both lower extremities (Primary Dx); Abnormal leg movement; Pre-syncope; Syncope, unspecified syncope type; Weakness of both lower extremities 09/25/2024 11:10 AM EDT Office Visit [facility] [address] [place] [phone] Yamilex Eagle NP Syncope, unspecified syncope type (Primary Dx) 09/21/2024 Telephone Adult [address] [phone] Latesha France MD 09/20/[address] [phone] Latesha France MD 09/12/2024 1:15 PM EDT Ancillary Procedure [facility] [address] [place] [phone] Dyspnea on exertion 09/04/2024 11:30 AM EDT Office Visit [address] [phone] Latesha France MD Acne, unspecified acne type (Primary Dx) 09/03/2024 Telephone [facility] [address] [place] [phone] Maria Eugenia Mccartney MD 09/03/[address] [phone] Latesha France MD 08/27/2024 1:40 PM EDT Office Visit [facility] [address] [place] [phone] Yamilex Eagle NP Dyspnea on exertion (Primary Dx) 08/27/[address] [phone] Latesha France MD 08/23/2024 Telephone Obstetrics and Gynecology [address] [phone] Gemini Bazzi CNM 08/23/2024 Telephone Adult Medicine [facility] - [address] [phone] Tayler Mandujano MA 08/22/2024 2:00 PM EDT Clinical Support Obstetrics and Gynecology - [address] [phone] Initiation of Depo Provera (Primary Dx) from [...] EDT Office Visit Obstetrics and Gynecology - [address] [phone] Sally Kinney, ALEJANDRO[address] 02/04/2025 1:00 PM EST Clinical Support Obstetrics and [facility] - [address] [phone] 03/22/2025 3:00 PM EST Office Visit Adult Medicine [address] [phone] Latesha France MD [address] [place] [address] [phone] Health Maintenance Due Date Last Done Comments [...] from the original result were not included. [facility] [address] [place] [id number] Pulmonary Functions Report Date of service: 11/09/24 [...] No pathogens isolated. 11/08/2024 10:35 AM EDT [facility] Swab Structure of anterior portion of neck / Unknown Non-blood Collection / Unknown 11/06/2024 9:13 AM EDT 11/06/2024 9:13 AM EDT Latesha France MD LAB MICROBIOLOGY - GENERAL ORDERABLES Final Result [facility] [address] [place] [address], [place] [phone] * XR Chest 2 Views (10/31/2024 1:52 PM EDT) Anatomical Region Laterality Modality Body Radiographic Domonique ging 10/31/2024 6:17 PM EDT Impressions 10/31/2024 6:17 PM EDT No acute cardiopulmonary process. -------- FINAL REPORT -------- Dictated By: Courtney Prakash Dictated Date: 10/31/2024 18:17 ET Assigned Physician: Courtney Prakash Reviewed and Electronically Signed By: Courtney Prakash Signed Date: 10/31/2024 18:17 ET Workstation ID: [id number] Transcribed By: Self Edit Transcribed Date: 10/31/2024 [...] Signed Date: 10/31/2024 18:17 ET Workstation ID: [id number] Transcribed By: Self Edit Transcribed Date: 10/31/2024 18:17 ET Latesha France MD IMG XR PROCEDURES Final Res ult * Interferon gamma interpretation (10/31/2024 1:39 PM EDT) Quantiferon Plus Interpretation Negative Negative LAB CHEMISTRY METHOD 11/02/2024 11:18 AM EDT [facility] Blood Venous blood specimen / Unknown Venipuncture / Unknown 10/31/2024 1:39 PM EDT 10/31/2024 1:39 PM EDT Latesha France MD LAB BLOOD ORDERABLES Final Result [facility] [address] [place] [address], [place] [phone] * Interferon gamma antigen 2 (10/31/2024 1:39 PM EDT) Blood Venous blood specimen / Unknown Venipuncture / Unknown 10/31/2024 1:39 PM EDT 10/31/2024 1:39 PM EDT Latesha France MD LAB BLOOD ORDERABLES Final Result [facility] [address] [place] [address], [place] [phone] * Interferon gamma antigen 1 (10/31/2024 1:39 PM EDT) Blood Venous blood specimen / Unknown Venipuncture / Unknown 10/31/2024 1:39 PM EDT 10/31/2024 1:39 PM EDT us Latesha France MD LAB BLOOD ORDERABLES Final Result Performing Organization Address [facility]/ZIP Co de Phone Number [facility] [address] [place] [address], [place] [phone] * Interferon gamma mitogen (10/31/2024 1:39 PM EDT) Blood Venous blood specimen / Unknown Venipuncture / Unknown 10/31/2024 1:39 PM EDT 10/31/2024 1:39 PM EDT Latesha France MD LAB BLOOD ORDERABLES Final Result Performing Organization Address [facility] Co de Phone Number [facility] [address] [place] [address], [place] [phone] * Interferon gamma NIL (10/31/2024 1:39 PM EDT) Blood Venous blood specimen / Unknown Venipuncture / Unknown 10/31/2024 1:39 PM EDT 10/31/2024 1:39 PM EDT Latesha France MD LAB BLOOD ORDERABLES Final Result Performing Organization Address [facility] de Phone Number [facility] [address] [place] [address], [place] [phone] * Myositis panel 3 (10/31/2024 1:39 PM [...] approved by the Food and Drug Administration. MO-2 Ab Negative Negative 11/16/2024 1:10 PM EDT [...] approved by the Food and Drug Administration. Anti-U1-[employer] Ab <20 <20 Units 11/16/2024 1:10 PM [...] the Food and Drug Administration. Fibrillarin (U3 [employer]) Ab Negative Negative 11/16/2024 1:10 PM EDT [facility] Comment: This test was developed and its performance characteristics determined by [facility]. It has not been cleared or approved by the Food and Drug Administration. Interpretation for Anti-Dottie-1, Pbiq-RUU-4rdxve, Anti-MDA-5, Anti-NXP-2, Anti-PM/Scl-100, Anti-SS-A 52 kD, Anti-U1 [employer]: Negative: <20 Weak Positive: 20 - 39 Moderate Positive: 40 - 80 Strong Positive: >80 . Test Performed by: [facility] [address] [place] [address] Blood Venous blood specimen / Unknown Venipuncture / Unknown 10/31/2024 1:39 PM EDT 10/31/2024 1:39 PM EDT us Latesha France MD LAB BLOOD ORDERABLES Final Result [facility] [address] [place] [address] * (ABNORMAL) Vitamin D 25 hydroxy (10/31/2024 1:39 PM EDT) Vit D, 25-Hydroxy 25.0(L) 30.0 - 80.0 ng/mL LAB CHEMISTRY METHOD 10/31/2024 5:29 PM EDT [facility] Blood Venous blood specimen / Unknown Venipuncture / Unknown 10/31/2024 1:39 PM EDT 10/31/2024 1:39 PM EDT Latesha France MD LAB BLOOD ORDERABLES Final Result [facility] [address] [place] [address], * Basic metabolic panel (10/31/2024 1:39 PM EDT) Sodium 136 133 - 145 mmol/L LAB CHEMISTRY METHOD 10/31/2024 4:33 PM [facility] Potassium 4.6 3.5 - 5.5 mmol/L LAB CHEMISTRY METHOD 10/31/2024 4:33 PM [facility] Chloride 103 96 - 110 mmol/L LAB CHEMISTRY METHOD 10/31/2024 4:33 PM [facility] CO2 29 21 - 32 mmol/L LAB CHEMISTRY METHOD 10/31/2024 4:33 PM [facility] Anion Gap 4 3 - 11 LAB CHEMISTRY METHOD 10/31/2024 4:33 PM [facility] Glucose 76 70 - 100 mg/dL LAB CHEMISTRY METHOD 10/31/2024 4:33 PM [facility] BUN 10 5 - 25 mg/dL LAB CHEMISTRY METHOD 10/31/2024 4:33 PM [facility] Creatinine 0.65 0.50 - 1.10 mg/dL LAB CHEMISTRY METHOD 10/31/2024 4:33 PM [facility] eGFR 127 >=60 mL/min/1. 73m2 LAB CHEMISTRY METHOD 10/31/2024 4:33 PM [facility] Comment:Calculation based on the Chronic Kidney Disease Epidemiology Collaboration (CKD-EPI) equation refit without adjustment for race. BUN/Creatinine Ratio 15.4 LAB CHEMISTRY METHOD 10/31/2024 4:33 PM EDT [facility] Calcium 9.7 8.5 - 10.5 mg/dL LAB CHEMISTRY METHOD 10/31/2024 4:33 PM EDT [facility] Blood Venous blood specimen / Unknown Venipuncture / Unknown 10/31/2024 1:39 PM EDT 10/31/2024 1:39 PM EDT Latesha France MD LAB BLOOD ORDERABLES Final Result Performing Organization Address City/[facility]/ZIP Co de Phone Number [facility] [address] [place] [address], [place] [phone] * Sjogrens antibodies, SSA and SSB (10/17/2024 12:22 PM EDT) Sjogren's SS-A (Ro) Ab Quant 1 <20 units LAB CHEMISTRY METHOD 10/21/2024 10:18 AM EDT [facility] Sjogren's SS-A (Ro) Ab Negative Negative LAB CHEMISTRY METHOD 10/21/2024 10:18 AM EDT [facility] Sjogren's SS-B (La) Ab Quant 2 <20 units LAB CHEMISTRY METHOD 10/21/2024 10:18 AM EDT [facility] Sjogren's SS-B (La) Ab Negative Negative LAB CHEMISTRY METHOD 10/21/2024 10:18 AM EDT [facility] Blood Venous blood specimen / Unknown Venipuncture / Unknown 10/17/2024 12:22 PM EDT 10/17/2024 12:22 PM EDT Latesha France MD LAB BLOOD ORDERABLES Final Result Performing Organization Address City/[facility]/ZIP Co de Phone Number [facility] [address] [place] [address], [place] [phone] * Myocardial antibody IgG, reflex to titer (10/17/2024 12:22 PM EDT) Myocardial Antibody Screen, IFA NEGATIVE NEGATIVE 10/25/2024 1:40 AM EDT [facility] Comment: This test was developed and its analytical performance characteristics have been determined by [employer]. It has not been cleared or approved by the FDA. This assay has been validated pursuant to the CLIA regulations and is used for clinical purposes. Myocardial Antibody Titer TNP 10/25/2024 1:40 AM EDT [facility] Comment: Test Not Performed. Screening test Negative or Not Detected. Titer not performed. Test Performed at: [employer] [facility] [address] [phone] Melba Anna MD, PhD, AZIZA Comment added after verification. Original result, verified by I/AUT at 01:40 on 10/25/2024 Blood Venous blood specimen / Unknown Venipuncture / Unknown 10/17/2024 12:22 PM EDT 10/17/2024 12:22 PM EDT Latesha France MD LAB BLOOD ORDERABLES Edited Result - Final [facility] [address] [place] [address] * Thyroid peroxidase antibody (10/17/2024 12:22 PM EDT) Pathologist [facility] Thyroid Peroxidase Ab 60.0 <=60.0 I Unit/mL LAB CHEMISTRY METHOD 10/17/2024 4:26 PM EDT [facility] Blood Venous blood specimen / Unknown Venipuncture / Unknown 10/17/2024 12:22 PM EDT 10/17/2024 12:22 PM EDT Latesha France MD LAB BLOOD ORDERABLES Final Result [facility] [address] [place] [address], * Iron and TIBC (10/17/2024 12:22 PM EDT) Only the most recent of2 resultswithin the time period is included. Iron 128 40 - 150 mcg/dL LAB CHEMISTRY METHOD 10/17/2024 3:07 PM EDT [facility] TIBC 365 250 - 450 mcg/dL LAB CHEMISTRY METHOD 10/17/2024 3:07 PM EDT [facility] Iron Saturation 35 15 - 50 % LAB CHEMISTRY METHOD 10/17/2024 3:07 PM EDT [facility] Blood Venous blood specimen / Unknown Venipuncture / Unknown 10/17/2024 12:22 PM EDT 10/17/2024 12:22 PM EDT Latesha France MD LAB BLOOD ORDERABLES Final Result Performing Organization Address City/[facility]/ZIP Co de Phone Number [facility] [address] [place] [address], [place] [phone] * Smooth muscle antibody IgG (10/17/2024 12:22 PM EDT) [facility] Smooth Muscle (F-Actin) IgG Ab 5 <20 UNITS 10/22/2024 2:00 PM EDT [facility] Comment: Interpretation: Negative Test performed at [facility], [address], [place], [place] [id number] Darcy Parker MD, PhD - Road [employer] Blood Venous blood specimen / Unknown Venipuncture / Unknown 10/17/2024 12:22 PM EDT 10/17/2024 12:22 PM EDT Latesha France MD LAB BLOOD ORDERABLES Final Result [facility] [address] [place] [address] * Anti-scleroderma antibody (10/17/2024 12:22 PM EDT) Pathologist [facility] Scleroderma SCL - 70 Negative Negative LAB CHEMISTRY METHOD 10/21/2024 10:18 AM EDT [facility] Blood Venous blood specimen / Unknown Venipuncture / Unknown 10/17/2024 12:22 PM EDT 10/17/2024 12:22 PM EDT Latesha France MD LAB BLOOD ORDERABLES Final Result Performing Organization Address [facility]/ZIP Co de Phone Number [facility] [address] [place] [address], [place] [phone] * DNA antibody, double-stranded (10/17/2024 12:22 PM EDT) [facility] Anti-DNA Double Stranded Antibody Negative Negative LAB CHEMISTRY METHOD 10/21/2024 10:17 AM EDT [facility] ds DNA Ab 31 <=200 I Unit/mL LAB CHEMISTRY METHOD 10/21/2024 10:17 AM EDT [facility] Blood Venous blood specimen / Unknown Venipuncture / Unknown 10/17/2024 12:22 PM EDT 10/17/2024 12:22 PM EDT us Latehsa France MD LAB BLOOD ORDERABLES Final Result Performing Organization Address [facility]/ZIP Co de Phone Number [facility] [address] [place] [address], [place] [phone] * Anti-parietal antibody (10/17/2024 12:22 PM EDT) [facility] Gastric Parietal Cell Ab 1.4 <=20 UNITS 10/26/2024 1:27 PM EDT [facility] Comment: Interpretation: Negative Test performed at [facility], [address] [place] [address] Darcy Parker MD, PhD - Road Contractor Blood Venous blood specimen / Unknown Venipuncture / Unknown 10/17/2024 12:22 PM EDT 10/17/2024 12:22 PM EDT us Latesha France MD LAB BLOOD ORDERABLES Final Result [facility] [place] [address] * Antimitochondrial antibody (10/17/2024 12:22 PM EDT) Pathologist [facility] Mitochondrial Antibody Quantitative 13.7 <=20.0 units LAB CHEMISTRY METHOD 10/24/2024 11:29 AM EDT [facility] Mitochondrial Antibody Qualitative Negative Negative LAB CHEMISTRY METHOD 10/24/2024 11:29 AM EDT [facility] Blood Venous blood specimen / Unknown Venipuncture / Unknown 10/17/2024 12:22 PM EDT 10/17/2024 12:22 PM EDT Latesha France MD LAB BLOOD ORDERABLES Final Result Performing Organization Address [facility] Co de Phone Number [facility] [address] [place] [address], [place] [phone] * Rheumatoid factor (10/17/2024 12:22 PM EDT) [facility] Rheumatoid Factor <10.0 <15.0 I Unit/mL LAB CHEMISTRY METHOD 10/17/2024 3:07 PM EDT [facility] Blood Venous blood specimen / Unknown Venipuncture / Unknown 10/17/2024 12:22 PM EDT 10/17/2024 12:22 PM EDT us Latesha France MD LAB BLOOD ORDERABLES Final Result Performing Organization Address City/[facility]/ZIP Co de Phone Number [facility] [address] [place] [address], [place] [phone] * C3 complement (10/17/2024 12:22 PM EDT) C3 Complement 127 88 - 201 mg/dL LAB CHEMISTRY METHOD 10/17/2024 3:07 PM EDT [facility] Blood Venous blood specimen / Unknown Venipuncture / Unknown 10/17/2024 12:22 PM EDT 10/17/2024 12:22 PM EDT Latesha France MD LAB BLOOD ORDERABLES Final Result Performing Organization Address City/[facility]/ZIP Co de Phone Number [facility] [address] [place] [address], [place] [phone] * C4 complement (10/17/2024 12:22 PM EDT) C4 Complement 30 16 - 47 mg/dL LAB CHEMISTRY METHOD 10/17/2024 3:07 PM EDT [facility] Blood Venous blood specimen / Unknown Venipuncture / Unknown 10/17/2024 12:22 PM EDT 10/17/2024 12:22 PM EDT us Latesha France MD LAB BLOOD ORDERABLES Final Result Performing Organization Address City/[facility]/ZIP Co de Phone Number [facility] [address] [place] [address], [place] [phone] * Thyroid stimulating hormone with reflex to free t4 and free t3 (10/02/2024 2:28 PM EDT) TSH 1.35 0.40 - 4.00 mcIU/mL LAB CHEMISTRY METHOD 10/02/2024 7:20 PM EDT [facility] Blood Venous blood specimen / Unknown Venipuncture / Unknown 10/02/2024 2:28 PM EDT 10/02/2024 2:29 PM EDT us Latesha France MD LAB BLOOD ORDERABLES Final Result [facility] [address] [place] [address], * CBC auto differential (10/02/2024 2:28 PM EDT) WBC 6.2 4.8 - 10.8 K/mcL LAB HEMETOLOGY METHOD 10/02/2024 5:06 PM EDT [facility] RBC 4.40 3.80 - 4.80 M/mcL LAB HEMETOLOGY METHOD 10/02/2024 5:06 PM EDT [facility] Hemoglobin 12.7 11.5 - 16.0 g/dL LAB HEMETOLOGY METHOD 10/02/2024 5:06 PM EDT [facility] Hematocrit 38.1 35.0 - 47.0 % LAB HEMETOLOGY METHOD 10/02/2024 5:06 PM EDT [facility] MCV 87.4 79.0 - 98.0 FL LAB HEMETOLOGY METHOD 10/02/2024 5:06 PM EDT [facility] MCH 29.1 27.0 - 32.0 pcg LAB HEMETOLOGY METHOD 10/02/2024 5:06 PM EDT [facility] MCHC 33.3 32.0 - 37.0 g/dL LAB HEMETOLOGY METHOD 10/02/2024 5:06 PM EDT [facility] RDW 12.2 11.0 - 15.0 % LAB HEMETOLOGY METHOD 10/02/2024 5:06 PM EDT [facility] Platelets 311 130 - 400 K/mcL LAB HEMETOLOGY METHOD 10/02/2024 5:06 PM EDT [facility] MPV 10.6 7.0 - 11.0 FL LAB HEMETOLOGY METHOD 10/02/2024 5:06 PM EDT [facility] NRBC 0.0 <1.0 % LAB HEMETOLOGY METHOD 10/02/2024 5:06 PM [facility] NRBC Absolute 0.00 <0.10 K/mcL LAB HEMETOLOGY METHOD 10/02/2024 5:06 PM [facility] Neutrophils Relative 53.7 % LAB HEMETOLOGY METHOD 10/02/2024 5:06 PM [facility] Lymphocytes Relative 34.2 % LAB HEMETOLOGY METHOD 10/02/2024 5:06 PM [facility] Monocytes Relative 6.4 % LAB HEMETOLOGY METHOD 10/02/2024 5:06 PM [facility] Eosinophils Relative 4.8 % LAB HEMETOLOGY METHOD 10/02/2024 5:06 PM [facility] Basophils Relative 0.6 % LAB HEMETOLOGY METHOD 10/02/2024 5:06 PM [facility] Immature Granulocytes Relative 0.3 % LAB HEMETOLOGY METHOD 10/02/2024 5:06 PM [facility] Neutrophils Absolute 3.33 1.50 - 7.00 K/mcL LAB HEMETOLOGY METHOD 10/02/2024 5:06 PM [facility] Lymphocytes Absolute 2.13 1.00 - 5.00 K/mcL LAB HEMETOLOGY METHOD 10/02/2024 5:06 PM [facility] Monocytes Absolute 0.40 0.20 - 1.00 K/mcL LAB HEMETOLOGY METHOD 10/02/2024 5:06 PM [facility] Eosinophils Absolute 0.30 0.00 - 0.50 K/mcL LAB HEMETOLOGY METHOD 10/02/2024 5:06 PM [facility] Basophils Absolute 0.04 0.00 - 0.20 K/mcL LAB HEMETOLOGY METHOD 10/02/2024 5:06 PM [facility] Immature Granulocytes Absolute 0.02 0.00 - 0.03 K/mcL LAB HEMETOLOGY METHOD 10/02/2024 5:06 PM EDT [facility] Blood Venous blood specimen / Unknown Venipuncture / Unknown 10/02/2024 2:28 PM EDT 10/02/2024 2:29 PM EDT Latesha France MD LAB BLOOD ORDERABLES Final Result Performing Organization Address City/[facility]/ZIP Co de Phone Number [facility] [address] [place] [address], [place] [phone] * Creatine kinase (10/02/2024 2:28 PM EDT) Pathologist [facility] Total CK 59 22 - 269 unit/L LAB CHEMISTRY METHOD 10/02/2024 8:29 PM EDT [facility] Blood Venous blood specimen / Unknown Venipuncture / Unknown 10/02/2024 2:28 PM EDT 10/02/2024 2:29 PM EDT Latesha France MD LAB BLOOD ORDERABLES Final Result Performing Organization Address [facility]/ZIP Co de Phone Number [facility] [address] [place] [address], [place] [phone] * (ABNORMAL) Comprehensive metabolic panel (10/02/2024 2:28 PM EDT) Pathologist [facility] Sodium 136 133 - 145 mmol/L LAB CHEMISTRY METHOD 10/02/2024 8:29 PM EDT [facility] Potassium 4.4 3.5 - 5.5 mmol/L LAB CHEMISTRY METHOD 10/02/2024 8:29 PM EDT [facility] Chloride 104 96 - 110 mmol/L LAB CHEMISTRY METHOD 10/02/2024 8:29 PM EDT [facility] CO2 26 21 - 32 mmol/L LAB CHEMISTRY METHOD 10/02/2024 8:29 PM [facility] Anion Gap 6 3 - 11 LAB CHEMISTRY METHOD 10/02/2024 8:29 PM [facility] Glucose 90 70 - 100 mg/dL LAB CHEMISTRY METHOD 10/02/2024 8:29 PM [facility] BUN 9 5 - 25 mg/dL LAB CHEMISTRY METHOD 10/02/2024 8:29 PM [facility] Creatinine 0.67 0.50 - 1.10 mg/dL LAB CHEMISTRY METHOD 10/02/2024 8:29 PM [facility] eGFR 126 >=60 mL/min/1. 73m2 LAB CHEMISTRY METHOD 10/02/2024 8:29 PM [facility] Comment:Calculation based on the Chronic Kidney Disease Epidemiology Collaboration (CKD-EPI) equation refit without adjustment for race. BUN/Creatinine Ratio 13.4 LAB CHEMISTRY METHOD 10/02/2024 8:29 PM [facility] Calcium 10.1 8.5 - 10.5 mg/dL LAB CHEMISTRY METHOD 10/02/2024 8:29 PM [facility] AST (SGOT) 6(L) 10 - 42 unit/L LAB CHEMISTRY METHOD 10/02/2024 8:29 PM [facility] ALT (SGPT) 18 10 - 60 unit/L LAB CHEMISTRY METHOD 10/02/2024 8:29 PM [facility] Alkaline Phosphatase 54 42 - 121 unit/L LAB CHEMISTRY METHOD 10/02/2024 8:29 PM [facility] Total Protein 8.0 6.0 - 8.0 g/dL LAB CHEMISTRY METHOD 10/02/2024 8:29 PM [facility] Albumin 4.7 3.2 - 5.0 g/dL LAB CHEMISTRY METHOD 10/02/2024 8:29 PM [facility] Total Bilirubin 0.3 0.0 - 1.4 mg/dL LAB CHEMISTRY METHOD 10/02/2024 8:29 PM EDT [facility] Blood Venous blood specimen / Unknown Venipuncture / Unknown 10/02/2024 2:28 PM EDT 10/02/2024 2:29 PM EDT us Latesha France MD LAB BLOOD ORDERABLES Final Result [facility] [address] [place] [address], [place] [phone] * Exercise stress test (09/12/2024 1:42 PM [...] manually resulted (08/22/2024 2:00 PM EDT) Pathologist [facility] HCG, Ur POC Negative Negative POC hCG Int QC Pass? Yes Yes Urine Urine specimen obtained by clean catch procedure / Unknown 08/22/2024 2:00 PM EDT Mindy Flower CNM POINT OF CARE TEST ENTER/ED IT ORDERABLES Final Result * Lipid panel with reflex to direct LDL (07/19/2024 1:38 PM EDT) [facility] Cholesterol 142 0 - 200 mg/dL LAB CHEMISTRY METHOD 07/19/2024 5:47 PM EDT [facility] Triglycerides 54 0 - 150 mg/dL LAB CHEMISTRY METHOD 07/19/2024 5:47 PM EDT [facility] HDL 63 >=40 mg/dL LAB CHEMISTRY METHOD 07/19/2024 5:47 PM EDT [facility] LDL Calculated 68 0 - 100 mg/dL LAB CHEMISTRY METHOD 07/19/2024 5:47 PM EDT [facility] VLDL Cholesterol Nahid 10.8 mg/dL LAB CHEMISTRY METHOD 07/19/2024 5:47 PM EDT [facility] Non HDL Chol. (LDL+VLDL) 79 <145 mg/dL LAB CHEMISTRY METHOD 07/19/2024 5:47 PM EDT [facility] Chol/HDL Ratio 2.3 0.0 - 4.4 LAB CHEMISTRY METHOD 07/19/2024 5:47 PM EDT [facility] Blood Venous blood specimen / Unknown Venipuncture / Unknown 07/19/2024 1:38 PM EDT 07/19/2024 1:38 PM EDT Latesha France MD LAB BLOOD ORDERABLES Final Result [facility] [address] [place] [address], [place] [phone] * Chlamydia trachomatis and Neisseria gonorrhoeae molecular study (04/30/2024 10:52 AM EST) [facility] Neisseria gonorrhoeae PCR Negative Negative LAB MOLECULAR DIAGNOSTICS METHOD 05/01/2024 7:20 AM EST [facility] Chlamydia trachomatis PCR Negative Negative LAB MOLECULAR DIAGNOSTICS METHOD 05/01/2024 7:20 AM EST [facility] Swab Cervix uteri structure / Unknown Non-blood Collection / Unknown 04/30/2024 10:52 AM EST 04/30/2024 10:53 AM EST Sally Kinney CNM LAB MICROBIOLOGY - GENERAL ORDAustin MUÑIZ Final Result Performing Organization Address City/[facility]/ZIP Co de Phone Number [facility] [address] [place] [address], [place] [phone] * Cervical Cancer Screening: HPV (08/30/2023) Pathologist [facility] Cervical Cancer Screening: HPV abstracted; no interpretation Historical Provider HEALTH MAINTENANCE Final Result * Depression Screening (07/29/2023) Pathologist [facility] Depression Screening abstracted Historical Provider HEALTH MAINTENANCE Final Result from Last 3 Months or Most Recently Relevant to Health Maintenance Insurance [facility] PLAN Care Teams Python Engineer Relationship Specialty Start Date End Date Latesha France MD [address] [place] [address] PCP - General Internal Medicine 02/13/24
--- OUTSIDE RECORDS SUMMARY | 2024-11-21 21:57 | XMS_ITS | Encounter Summary ---
Author Organization [facility] Address [address] [place] [address] Care Team Providers Care Artisan Plasterer Name Role Phone Latesha France MD Primary Care Provider [phone] Reason for Visit * Reason Onset Date Comments Hypotension 03/19/2024 Encounter Details Date Type Department Care Team (Late st Contact Info) Description 03/19/2024 Nurse Triage Adult Medicine [address] [phone] Latesha France MD [address] [place] [phone] Social History Tobacco Use Types Packs/Day Years [...] traveled recently to another state outside of [place], [place], [place], [place], [place], [place], [place]? no o If yes, did you quarantine [...] not applicable PCP: Latesha France MD Payor: [facility] PLAN / Plan: [employer] MEDICAID / Product Type: *No Product type* / documented in this encounter Plan of Treatment Upcoming Encounters Date Type Department Care Team (Late st Contact Info) Description 12/17/2024 2:30 PM EDT Office Visit Obstetrics and Gynecology [address] [phone] [address]ney [address] 02/04/2025 1:00 PM EST Clinical Support Obstetrics and Gynecology - [address] [phone] 03/22/2025 3:00 PM EST Office Visit Adult Medicine [address] [phone] Latesha France MD [address] [place] [address] documented as of this encounter Visit Diagnoses Not on filedocumented in this encounter Additional Health Concerns Infection Onset Date Last Indicated Resolved Time Respiratory Rule-Out 05/22/2024 05/22/2024 025 7:00 PM EST C. difficile Rule-Out 05/23/2024 05/22/20242024 4:54 PM EST documented as of this encounter Care Teams Artisan Plasterer Relationship Specialty Start Date End Date Latesha France MD [address] [place] [address] PCP - General Internal Medicine 02/13/24 documented as of this encounter
--- OUTSIDE RECORDS SUMMARY | 2024-11-21 21:57 | XMS_ITS | Encounter Summary ---
Author Organization [facility] Address [address] [place] [address] Care Team Providers Care Securities Vault Supervisor Name Role Phone Latesha France MD Primary Care Provider [phone] Reason for Visit * Reason Onset Date Comments Abdominal Pain 04/25/2024 Diarrhea 04/25/2024 Encounter Details Date Type Department Care Team (Late st Contact Info) Description 04/25/2024 Nurse Triage Adult Medicine [address] [phone] Latesha France MD [address] [place] [id number] Social History Tobacco Use Types Packs/Day Years [...] recently to another state outside of [place], [place], [place], [place], [place], [place], [place]? no o If yes, did you [...] gather 3rd alliance party insurance information Third Republican Information: not applicable PCP: Latesha France MD Payor: [employer] HEALTH PLAN / Plan: [employer] [facility] MEDICAID / Product Type: *No Product type* / documented in this encounter Plan of Treatment Upcoming Encounters Date Type Department Care Team (Late st Contact Info) Description 12/17/2024 2:30 PM EDT Office Visit Obstetrics and Gynecology [address] [phone] Sally Kinney CNM [address] [place] [address] 02/04/2025 1:00 PM EST Clinical Support Obstetrics and Gynecology - [address] [phone] 03/22/2025 3:00 PM EST Office Visit Adult Medicine [place] - [address] [phone] Latesha France MD [address] [place], [place] documented as of this encounter Visit Diagnoses Not on filedocumented in this encounter Additional Health Concerns Infection Onset Date Last Indicated Resolved Time Respiratory Rule-Out 05/22/2024 05/22/2024 025 7:00 PM EST C. difficile Rule-Out 05/23/2024 05/22/20242024 4:54 PM EST documented as of this encounter Care Teams Securities Vault Supervisor Relationship Specialty Start Date End Date Latesha France MD [address] [place] [address] PCP - General Internal Medicine 02/13/24 documented as of this encounter
--- OUTSIDE RECORDS SUMMARY | 2024-11-21 21:57 | XMS_ITS | Encounter Summary ---
Author Organization [facility] Address [address] [place] [address] Care Team Providers Care Vp Ad Products And Planning Name Role Phone Latesha France MD Primary Care Provider Reason for Visit * Reason Onset Date Comments medical concern 10/26/2024 Encounter Details Date Type Department Care Team (Late st Contact Info) Description 10/26/2024 Telephone [facility] [address] [place] [phone] Maria Eugenia Mccartney MD [address] [place] [address] [address] [place] [phone] Social History Tobacco Use Types Packs/Day Years [...] - 10/26/2024 3:56 PM EDT Please see [facility] ppwk scanned in for your review to determine if pt needs a hospital follow upappt and how soon * Laura Wood - 10/26/2024 1:43 PM EDT Patient called in to report she went to the [place] [facility] on 10/24/24 for SOB causing her to pass out. The ER suggested she contact all of her specialist to see if she needed to follow up with them. She would like a call back at [phone] documented in this encounter Plan of Treatment Upcoming Encounters Date Type Department Care Team (Late st Contact Info) Description 12/17/2024 2:30 PM EDT Office Visit Obstetrics and Gynecology - [address] [phone] Sally Kinney CNM [address] [place] [address] 02/04/2025 1:00 PM EST Clinical Support Obstetrics and Gynecology - [address] [phone] 03/22/2025 3:00 PM EST Office Visit Adult Medicine [address] [phone] Latesha France MD [address] [place] [address] documented as of this encounter Visit Diagnoses Not on filedocumented in this encounter Care Teams Vp Ad Products And Planning Relationship Specialty Start Date End Date Latesha France MD [address] [place] [address] PCP - General Internal Medicine 02/13/24 documented as of this encounter
--- OUTSIDE RECORDS SUMMARY | 2024-11-21 21:57 | XMS_ITS | Encounter Summary ---
Author Organization [facility] Address [address] [place] [address] Care Team Providers Care Cake Wringer Name Role Phone Latesha France MD Primary Care Provider [phone] Reason for Visit * Reason Onset Date Comments Abdominal Pain 11/19/2024 Encounter Details Date Type Department Care Team (Late st Contact Info) Description 11/19/2024 Telephone Obstetrics and Gynecology - [id number] [place] [phone] Gemini Bazzi, [facility] [address] [place] [address] Social History Tobacco Use Types Packs/Day Years [...] and nausea - she spoke with the floral clerk nurse last week and was told the discomfort should subside- had her 2nd depo shot last Tuesday - but wants to be known that she is sexually active - asking for advice please call documented in this encounter Plan of Treatment Upcoming Encounters Date Type Department Care Team (Late st Contact Info) Description 12/17/2024 2:30 PM EDT Office Visit Obstetrics and Gynecology - [address] [phone] Sally Kinney [address] 02/04/2025 1:00 PM EST Clinical Support Obstetrics and Gynecology - [address] [phone] 03/22/2025 3:00 PM EST Office Visit Adult Medicine [address] [phone] Latesha France MD [address] [place] [address] documented as of this encounter Visit Diagnoses Not on filedocumented in this encounter Care Teams Cake Wringer Relationship Specialty Start Date End Date Latesha France MD [address] [place] [address] PCP - General Internal Medicine 02/13/24 documented as of this encounter
--- OUTSIDE RECORDS SUMMARY | 2024-11-21 21:57 | XMS_ITS | Encounter Summary ---
Author Organization [facility] Address [address] [place] [address] Care Team Providers Care Engineer Technician Name Role Phone Latesha France MD Primary Care Provider Reason for Visit * Reason Onset Date Comments Abdominal Pain 11/20/2024 Encounter Details Date Type Department Care Team (Late st Contact Info) Description 11/20/2024 Telephone Adult Medicine [facility] [address] [place] [address] Latesha France MD [address] [place] [address] Social History Tobacco Use Types Packs/Day Years [...] Progress Notes * Giulia Torres RN - 11/21/2024 1:45 PM EDT Pt. States she was waiting in the waiting room and passed out while there in lobby she reports theydid a sternal rub but I didn't respond and was brought into a room they did a urine and blood work and then we waited again for hours She left without being evaluated by the provider. I had to take my gabapentin I advised pt. Who at present time is still having the same stomach issues as stated yesterday in triage and a new episode of syncope . Pt. Is with her boyfriend and I advised to return to ER for syncopal episode, she denies head injury and continued symptoms. Pt. Agrees I advised to bring medication with her and to anticipate that she may have to wait and follow up once she has been evaluated . She agrees * Lorie Ruelas - 11/21/2024 11:16 AM EDT Patient is calling back today, She went to [facility] ER,, she was in the waiting room and when she was called and walking, she fainted. She was put into a room. She had labs done, did a urine sample. She waited for hours and never saw a doctor and decided to leave. She was having diarrhea when she went home. She states she still has the abdominal pain, some nausea. She is asking if she can be seen here efren CT ordered? Please advise. * Giulia Torres RN - 11/20/2024 4:07 [...] traveled recently to another state outside of [place], [place], [place], [place], [place], [place], [place]? no o If yes, did you quarantine [...] not applicable PCP: Latesha France MD [facility] [employer] [facility] / Plan: [facility] MEDICAID / Product Type: *No Product type* / documented in this encounter Plan of Treatment Upcoming Encounters Date Type Department Care Team (Late st Contact Info) Description 12/17/2024 2:30 PM EDT Office Visit Obstetrics and Gynecology - [address] [phone] Sally Kinney CNM [address] [place], [place] 02/04/2025 1:00 PM EST Clinical Support Obstetrics and Gynecology - [address] [phone] 03/22/2025 3:00 PM EST Office Visit Adult Medicine [address] [phone] Latesha France MD [address] [place] [address] documented as of this encounter Visit Diagnoses Not on filedocumented in this encounter Care Teams Engineer Technician Relationship Specialty Start Date End Date Latesha France MD [address] [place] [address] PCP - General Internal Medicine 02/13/24 documented as of this encounter
[2024-11-21 22:00] VITALS: BP 117/63; PULSE 81; RESP 18; TEMP 36.7; O2SAT 97
[2024-11-22] VITALS: BP 107/70; PULSE 84; RESP 16; TEMP 36.4; O2SAT 99
[2024-11-22 00:17] LABS: Appearance Urine Clear; Glucose Urine UA Negative (Negative); PH 7.0 (5.0-9.0); Specific Gravity - Urine 1.015 (1.005-1.025)
[2024-11-22] MEDS: iohexoL 350 MG/ML 100 ML INFUS..BTL 85 ML IV (01:12)
[2024-11-22 02:59] VITALS: BP 107/70; PULSE 84; RESP 16; TEMP 36.4; O2SAT 99
== END 2024-11-22 03:00 | disposition home or self-care (01) ==
PROVIDERS: Physician Assistant Medical; Emergency Provider Student in an Organized Health Care Education/Training Program; PCP Internal Medicine
DX: R10.31 Right lower quadrant pain (principal); R11.0 Nausea
CPT/HCPCS: 36415; 74177; 80048; 80076; 81003; 83690; 83735; 84702; 85025; 99284; J1885; J2405; Q9967

== ENCOUNTER → 2024-11-22 00:11 | Outpatient (BNV) | payer OTHER, SELFPAY | PROVIDERS: Emergency Provider Student in an Organized Health Care Education/Training Program; PCP Internal Medicine; Visit Provider Student in an Organized Health Care Education/Training Program | DX: R10.9 Unspecified abdominal pain (principal) | CPT/HCPCS: 74177 ==

== ENCOUNTER 2024-11-22 08:21 | Outpatient (AMB) | payer OTHER, SELFPAY ==
--- NOTE | 2024-11-22 08:21 | A.OFFVIS_ITS ---
Intake Visit Reasons: Med concerns Intake Note: Patient presents medication concerns. Sertraline not taking Allergies paper tape Allergy (Intermediate, Uncoded 11/21/24 18:08) Rash HPI Comments Details: 24 year old female presents for a f/u for seizure disorder via phone appt today she is being followed by Dr. Bravo's office. PMH October 01 EEG was completed, will f/u with Dr. Bravo for Seizure like disorder which started in June 2024, with passing out, on September 21 went to [facility] by EMT, 1:00AM, had a complete work up, she was shaking, felt cold and passed out for 30-40min. She has anemia and her blood sugar was low. She has chronic migraines usuaslly frontal to parietal throbbing pain /10. She has photophobia/ phonophobia with n/v diarrhea. She has balance and gait difficulties, with dizziness, vertigo, the room spins then vasovagal syncope due to stress. She has Fiorect TID as needed for migraines. For leg pain she which radiates she takes acetaminophen and gabapentin. Seizure like disorders she was started on Phenobarbital 30mg po by Dr. Bravo and today her BP in clinic is 92/58, not her normal. She stopped taking propanolol stopped benzonatate for cough and ketorolac prescribed by her PCP, Dr. France. She takes Zofran as needed. She is sees a therapist for 2 years now due to personal familial problems. RLS Symptoms her legs start to shake bilaterally, then she gets emotionally stressed out, and a cycle of anxiety with palpitations. She continues to have lower back and upper back pain. Her EKG was normal She does not snore, denies apneas, she coughs and it wakes her up. , she passed out for 15min, boyfriend witnessed her passing out, did not sustain any injury, she had a ctscan of lower abdomen 11/21/2024 which is normal and reviewed with pt today. 11/20/2024 She had jerking moving body movements in the mornings, first one lasted for 40 minutes, witnessed by her boyfriend at 7am. The second episode happened at 9am lasting 25min. She denies vision changes, urinary incontinence and or biting her tongue, felt as if she was not present physically and fighting in her sleep. Sleep She does not snore, denies apneas, she coughs and it wakes her up. Dr. France at [facility] referred her for a HST c/w AHI of 1 and no evidence of JOVANI, she is scheduled with PSG on 12/05/2024 8:30pm. She did not start sertraline due to concerns re: s/e. is taking gabapentin for RLS symptom, Ibuprofen as prn for menstrual cramps.Migraines have improved, she takes fiorect prn now. She is taking Propanolol for anxiety, most days. She will start in Nov to see her therapist 1x /week. Daphney Marin psychiatrist, social secretary. [facility] [place]. [facility] Medical History Somatization disorder Personality disorder Conversion disorder with seizures or convulsions Seizure Vasovagal syncope Syncope Sinus tachycardia PTSD (post-traumatic stress disorder) Moderate intellectual disabilities Migraine without status migrainosus, not intractable Menorrhagia with regular cycle Hypotension Insomnia Anxiety Migraine Family History Mother Headache Social History Unable to assess alcohol history related to: Unable to respond Alcohol intake: never Patient Tobacco Use Status: Never used Tobacco e-Cigarette/Vaping Use: Never Used Telehealth Telehealth Telehealth Platform: Telephone Location of provider rendering services: practice address Location of patient: address on file Patient Identification confirmed using: Name, : Yes Telehealth method: voice only Patient verbally consented to treatment: Yes Patient verbally consented to billing insurance company: Yes Patient informed of any privacy concerns related to visit: Yes Minutes spent on Phone/Video with Pt.: 25 Results Reviewed Results Reviewed: CTScan abdomen 11/21/2024 : Significant respiratory motion. The lung bases are clear. The gallbladder and solid organs are within normal limits. No renal stones. No bowel obstruction, pneumoperitoneum, or pneumatosis. Pelvic contents unremarkable. Normal appendix. No acute fracture. IMPRESSION: No acute findings. CT/CT head/brain wo IV con IMPRESSION: No acute intracranial pathology. FINDINGS: There are 5 nonrib-bearing lumbar segments. Vertebral body height and alignment is preserved. Disc spaces are preserved. Assessment & Plan Assessment & Plan (1) Excessive daytime and night-time sleepiness: Comment: psg pending dec 05 with [facility] Code(s): G47.19 - Other hypersomnia Category: Medical (2) Lumbar pain: Comment: gabapentin 300mg Code(s): M54.50 - Low back pain, unspecified Category: Medical (3) Bilateral headaches: Code(s): R51.9 - Headache, unspecified Category: Medical Plan HST inconclusive - psg is pending Dec 05. Labs reviwed with pt. Polypharmacy discussed with pt. and s/e of taking multiple medications. conversion disorder due to trauma, anxiety and depressed mood, continue psychotherapy. lumbar pain continue gabapentin 300mg po at bedtime. Migraines / headaches continue fiorecet. Imaging reviewed with pt. Ctscan, EEG/ EKG. all normal exams. Will f/u in 3 months. Patient Instructions: Sleep Hygiene provided: set a scheduled bedtime and wake time to help regulate the circadian rhythm and balance the release of pituitary hormones. Sleep in a dark room, temperatures below 68 degrees, and no devices n bed. Limit caffeinated products 6 hours prior to bed, and limit fluids 2-4 hours prior to bed. Gentle night yoga, diffusing essential oils, and playing soft music can be relaxing. Decrease stress, increase psychotherapy, improve diet, and increase sleep. Walking daily and consuming water can be helpful when having a panic attack or increased anxiety. Coding Level of Care Code Tele Est Pt Level 4 (95798) Diagnoses Excessive daytime and night-time sleepiness G47.19 Lumbar pain M54.50 Bilateral headaches R51.9
--- OUTSIDE RECORDS SUMMARY | 2024-11-22 08:54 | XMS_ITS | Encounter Summary ---
Author Organization [facility] Address [address] [place] [address] Care Team Providers Care Shredded Filler Cigar Maker Machine Name Role Phone Latesha France MD Primary Care Provider [phone] Reason for Visit * Reason Onset Date Comments Med Refill 01/25/2024 Disregard put in to system in older [facility] for refill Encounter Details Date Type Department Care Team (Late Contact Info) Description 01/25/2024 Telephone Adult Medicine [place] - [address] [phone] Latesha France MD [address] [place] [id number] Social History Tobacco Use Types Packs/Day Years [...] Upcoming Encounters Date Type Department Care Team ([facility] Contact Info) Description 12/17/2024 2:30 PM EDT Office Visit Obstetrics and Gynecology - [address] [phone] Salyl Kinney CNM [address] [place] [address] 02/04/2025 1:00 PM EST Clinical Support Obstetrics and Gynecology - [address] [phone] 03/22/2025 3:00 PM EST Office Visit Adult Medicine [place] - [address] [phone] Latesha France MD [address] [place] [address] documented as of this encounter Visit Diagnoses Not on filedocumented in this encounter Additional Health Concerns Infection Onset Date Last Indicated Resolved Time Respiratory Rule-Out 05/22/2024 05/22/2024 025 7:00 PM EST C. difficile Rule-Out 05/23/2024 05/22/20242024 4:54 PM EST documented as of this encounter Care Teams Shredded Filler Cigar Maker Machine Relationship Specialty Start Date End Date Latesha France MD [address] [place] [address] PCP - General Internal Medicine 02/13/24 documented as of this encounter
--- OUTSIDE RECORDS SUMMARY | 2024-11-22 08:54 | XMS_ITS | Encounter Summary ---
Author Organization [facility] Address [address] [place] [address] Care Team Providers Care Coil Machine Supervisor Name Role Phone Latesha France MD Primary Care Provider [phone]- [phone] Reason for Visit * Reason Onset Date Comments Medication Reaction 10/24/2024 Encounter Details Date Type Department Care Team (Late st Contact Info) Description 10/24/2024 Telephone Adult Medicine [facility] [address] [place] [address] Latesha France MD [address] [place] [address] Social History Tobacco Use Types Packs/Day Years [...] traveled recently to another state outside of [place], [place], [place], [place], [place], [place], [place]? no o If yes, did you quarantine [...] gather 3rd alliance party insurance information Third Democrat Information: not applicable PCP: Latesha France MD Payor: [employer] / Plan: [facility] MEDICAID / Product Type: *No Product type* / documented in this encounter Plan of Treatment Upcoming Encounters Date Type Department Care Team (Late st Contact Info) Description 12/17/2024 2:30 PM EDT Office Visit Obstetrics and Gynecology [address] [phone] Sally Kinney CNM [address] [place] [address] 02/04/2025 1:00 PM EST Clinical Support Obstetrics and Gynecology - [address] [phone] 03/22/2025 3:00 PM EST Office Visit Adult Medicine [address] [phone] Latesha France MD [address] [place] [address] documented as of this encounter Visit Diagnoses Not on filedocumented in this encounter Care Teams Coil Machine Supervisor Relationship Specialty Start Date End Date Latesha France MD [address] [place] [address] PCP - General Internal Medicine 02/13/24 documented as of this encounter
--- OUTSIDE RECORDS SUMMARY | 2024-11-22 08:54 | XMS_ITS | Encounter Summary ---
Author Organization [facility] Address [address] [place] [address] Care Team Providers Care Pattern Technician Name Role Phone Latesha France MD Primary Care Provider [phone]- [phone] Reason for Visit * Reason Onset Date Comments Results 10/22/2024 Encounter Details Date Type Department Care Team (Late st Contact Info) Description 10/22/2024 Telephone Adult Medicine [facility] [address] [place] [address] Latesha France MD [address] [place] [address] Social History Tobacco Use Types Packs/Day Years [...] normal Few remains in process * Diana [place] - 10/22/2024 11:12 AM EDT Inform patient: [...] EDT Office Visit Obstetrics and Gynecology - [address] [phone] 02/04/2025 1:00 PM EST Clinical Support Obstetrics and Gynecology - [address] [phone] 03/22/2025 3:00 PM EST Office Visit Adult Medicine [address] [phone] Latesha France MD [address] [place] [address] documented as of this encounter Visit Diagnoses Not on filedocumented in this encounter Care Teams Pattern Technician Relationship Specialty Start Date End Date Latesha France MD [address] [place] [address] PCP - General Internal Medicine 02/13/24 documented as of this encounter
--- OUTSIDE RECORDS SUMMARY | 2024-11-22 08:55 | XMS_ITS | Encounter Summary ---
Author Organization [facility] Address [address] [place] [address] Care Team Providers Care Chemist Internship Name Role Phone Latesha France MD Primary Care Provider Reason for Visit * Reason Onset Date Comments Cough 04/02/2024 Encounter Details Date Type Department Care Team (Late st Contact Info) Description 04/02/2024 Nurse Triage Adult Medicine [address] [phone] Latesha France MD [address] [place] [phone] Social History Tobacco Use Types Packs/Day Years [...] traveled recently to another state outside of [place], [place], [place], [place], [place], [place], [place]? no o If yes, did you quarantine [...] gather 3rd constitution party insurance information Third Alliance Party Information: n/a PCP: Latesha France MD Payor: [employer] / Plan: [facility] MEDICAID / Product Type: *No Product type* / documented in this encounter Plan of Treatment Upcoming Encounters Date Type Department Care Team (Late st Contact Info) Description 12/17/2024 2:30 PM EDT Office Visit Obstetrics and Gynecology [address] [phone] Sally Kinney CNM [address] [place] [address] 02/04/2025 1:00 PM EST Clinical Support Obstetrics and Gynecology - [address] [phone] 03/22/2025 3:00 PM EST Office Visit Adult [address] [phone] Latesha France MD [address] [place] [address] documented as of this encounter Visit Diagnoses Not on filedocumented in this encounter Additional Health Concerns Infection Onset Date Last Indicated Resolved Time Respiratory Rule-Out 05/22/2024 05/22/2024 025 7:00 PM EST C. difficile Rule-Out 05/23/2024 05/22/20242024 4:54 PM EST documented as of this encounter Care Teams Chemist Internship Relationship Specialty Start Date End Date Latesha France MD [address] [place] [address] PCP - General Internal Medicine 02/13/24 documented as of this encounter
--- OUTSIDE RECORDS SUMMARY | 2024-11-22 08:55 | XMS_ITS | Encounter Summary ---
Author Organization [facility] Address [address] [place] [address] Care Team Providers Care Data Power Consultant Name Role Phone Latesha France MD Primary Care Provider Reason for Visit * Reason Onset Date Comments medical concern 10/26/2024 Encounter Details Date Type Department Care Team (Late st Contact Info) Description 10/26/2024 Telephone [facility] [address] [place] [phone] Maria Eugenia Mccartney MD [address] [place] [address] [address] [place] [phone] Social History Tobacco Use Types Packs/Day Years [...] - 10/26/2024 3:56 PM EDT Please see [facility] ppwk scanned in for your review to determine if pt needs a hospital follow upappt and how soon * Laura Wood - 10/26/2024 1:43 PM EDT Patient called in to report she went to the [facility] on 10/24/24 for SOB causing her to pass out. The ER suggested she contact all of her specialist to see if she needed to follow up with them. She would like a call back at [phone] documented in this encounter Plan of Treatment Upcoming Encounters Date Type Department Care Team (Late st Contact Info) Description 12/17/2024 2:30 PM EDT Office Visit Obstetrics and Gynecology - [address] [phone] Sally Kinney CNM [address] [place] [address] 02/04/2025 1:00 PM EST Clinical Support Obstetrics and Gynecology - [address] [phone] 03/22/2025 3:00 PM EST Office Visit Adult Medicine [address] [phone] Latesha France MD [address] [place] [address] documented as of this encounter Visit Diagnoses Not on filedocumented in this encounter Care Teams Data Power Consultant Relationship Specialty Start Date End Date Latesha France MD [address] [place] [address] PCP - General Internal Medicine 02/13/24 documented as of this encounter
--- OUTSIDE RECORDS SUMMARY | 2024-11-22 08:55 | XMS_ITS | Encounter Summary ---
Author Organization [facility] Address [address] [place] [address] Care Team Providers Care Nutrition Manager Name Role Phone Latesha France MD Primary Care Provider [phone]- [phone] Encounter Details Date Type Department Care Team (Late st Contact Info) Description 07/24/2024 Nurse Triage Adult Medicine [address] [phone] Latesha France MD [address] [place] [address] Social History Tobacco Use Types Packs/Day Years [...] Office Visit Obstetrics and Gynecology - [address] [phone] [address] 02/04/2025 1:00 PM EST Clinical Support Obstetrics and Gynecology - [address] [phone] 03/22/2025 3:00 PM EST Office Visit Adult Medicine [address] [phone] Latesha France MD [address] [place] [address] documented as of this encounter Visit Diagnoses Not on filedocumented in this encounter Care Teams Nutrition Manager Relationship Specialty Start Date End Date Latesha France MD [address] [place] [address] PCP - General Internal Medicine 02/13/24 documented as of this encounter
--- OUTSIDE RECORDS SUMMARY | 2024-11-22 08:55 | XMS_ITS | Encounter Summary ---
Author Organization [facility] Address [address] [place] [address] Care Team Providers Care Cabinetmaker Supervisor Name Role Phone Latesha France MD Primary Care Provider +1- [phone] Reason for Visit * Reason Onset Date Comments Abdominal Pain 04/25/2024 Diarrhea 04/25/2024 Encounter Details Date Type Department Care Team (Late st Contact Info) Description 04/25/2024 Nurse Triage Adult Medicine [address] [phone] Latesha France MD [address] [place] [address] Social History Tobacco Use Types Packs/Day Years [...] recently to another state outside of [place], [place], [place], [place], [place], [place], [place]? no o If yes, did you quarantine [...] yes, gather 3rd libertarian insurance information Third Alliance Party Information: not applicable PCP: Latesha France MD Payor: [employer] / Plan: [facility] / Product Type: *No Product type* / documented in this encounter Plan of Treatment Upcoming Encounters Date Type Department Care Team (Late st Contact Info) Description 12/17/2024 2:30 PM EDT Office Visit Obstetrics and Gynecology [address] [phone] Sally Kinney CNM [address] [place] [address] 02/04/2025 1:00 PM EST Clinical Support Obstetrics and Gynecology - [address] [phone] 03/22/2025 3:00 PM EST Office Visit Adult Medicine [place] - [address] [phone] Latesha France MD [address] [place], [place] documented as of this encounter Visit Diagnoses Not on filedocumented in this encounter Additional Health Concerns Infection Onset Date Last Indicated Resolved Time Respiratory Rule-Out 05/22/2024 05/22/2024 025 7:00 PM EST C. difficile Rule-Out 05/23/2024 05/22/20242024 4:54 PM EST documented as of this encounter Care Teams Cabinetmaker Supervisor Relationship Specialty Start Date End Date Latesha France MD [address] [place] [address] PCP - General Internal Medicine 02/13/24 documented as of this encounter
--- OUTSIDE RECORDS SUMMARY | 2024-11-22 08:55 | XMS_ITS | Encounter Summary ---
Author Organization [facility] Address [address] [place] [address] Care Team Providers Care Varnish Dipper Name Role Phone Latesha France MD Primary Care Provider Reason for Visit * Reason Onset Date Comments Abdominal Pain 11/20/2024 Encounter Details Date Type Department Care Team (Late st Contact Info) Description 11/20/2024 Telephone Adult Medicine [facility] [address] [place] [address] Latesha France MD [address] [place] [address] Social History Tobacco Use Types Packs/Day Years [...] is calling back today, She went to [facility],, she was in the waiting room [...] symptoms. Please advise. Thank you. * Dilcia Ferrear - 11/20/2024 2:11 PM EDT Patient call [...] traveled recently to another state outside of [place], [place], [place], [place], [place], [place], [place]? no o If yes, did you quarantine [...] gather 3rd constitution party insurance information Third Libertarian Information: not applicable PCP: Latesha France MD [facility] / [facility] / Product Type: *No Product type* / documented in this encounter Plan of Treatment Upcoming Encounters Date Type Department Care Team (Late st Contact Info) Description 12/17/2024 2:30 PM EDT Office Visit Obstetrics and Gynecology - [address] [phone] Sally Kinney CNM [address] [place], [place] 02/04/2025 1:00 PM EST Clinical Support Obstetrics and Gynecology - [address] [phone] 03/22/2025 3:00 PM EST Office Visit Adult Medicine [address] [phone] Latesha France MD [address] [place] [address] documented as of this encounter Visit Diagnoses Not on filedocumented in this encounter Care Teams Varnish Dipper Relationship Specialty Start Date End Date Latesha France MD [address] [place] [address] PCP - General Internal Medicine 02/13/24 documented as of this encounter
--- OUTSIDE RECORDS SUMMARY | 2024-11-22 08:55 | XMS_ITS | Clinical Summary ---
Author Organization [facility] [address] [facility] [address] Address [address] [place] [address] Phone Care Team Providers Care Ophthalmic Assistant Name Role Phone Latesha France MD Primary Care Provider [phone] Allergies No known active allergies Medications fluticasone [...] Care Team Description 11/20/2024 Telephone Adult Medicine [address] [phone] Latesha France MD 11/19/2024 Telephone Obstetrics and Gynecology - [address] [phone] Gemini Bazzi CNM 11/15/2024 Telephone Adult Medicine [address] [phone] Latesha France MD 11/14/2024 Telephone Obstetrics and Gynecology [address] [phone] Sally Kinney CNM 11/12/2024 1:00 PM EDT Clinical Support Obstetrics and Gynecology - [address] [phone] Encounter for management and injection of depo-Provera (Primary Dx) 11/09/2024 7:20 AM EDT - 11/09/2024 11:59 PM EDT Hospital Encounter [facility] [address] [place] [id number] Discharge Disposition: Home or Self Care 11/07/2024 Telephone Obstetrics and Gynecology - [address] [phone] Sally Kinney CNM 11/06/2024 8:30 AM EDT Office Visit [address] [phone] Latesha France MD Enlarged tonsils (Primary Dx); Sore throat; Localized swelling on left hand 11/05/2024 Telephone Obstetrics and Gynecology [address] [phone] Sally Kinney CNM 11/02/[address] [phone] Latesha France MD 11/01/[address] [phone] Latesha France MD 10/31/2024 1:39 PM EDT - 10/31/2024 11:59 PM EDT Hospital Encounter [address] [phone] SOB (shortness of breath) Discharge Disposition: Home or Self Care 10/31/2024 1:00 PM EDT Office Visit [address] [phone] Latesha France MD Psychogenic nonepileptic seizure (Primary Dx); Vitamin D deficiency; SOB (shortness of breath) 10/29/[address] [phone] Latesha France MD 10/26/[address] [facility] [place] [address] Maria Eugenia Mccartney MD 10/26/[address] [phone] Latesha France MD 10/25/[address] [phone] Latesha France MD 10/24/[address] [phone] Latesha France MD 10/22/[address] [phone] Latesha France MD 10/19/[address] [phone] Latesha France MD 10/18/[address] [phone] Latesha France MD 10/17/2024 12:30 PM EDT Office Visit [address] [phone] Latesha France MD Other migraine without status migrainosus, not intractable (Primary Dx); Snoring; Repeated interruption of sleep during rapid eye movement stage; Vitamin D deficiency; Iron deficiency anemia, unspecified iron deficiency anemia type; Pain in both lower extremities 10/15/[address] [phone] Latesha France MD 10/12/[address] [phone] Latesha France MD 10/02/2024 2:30 PM EDT Office Visit [address] [phone] Latesha France MD Pain in both lower extremities (Primary Dx); Abnormal leg movement; Pre-syncope; Syncope, unspecified syncope type; Weakness of both lower extremities 09/25/2024 11:10 [address] EDT [address] [facility] [address] [place] [phone] Yamilex Eagle NP Syncope, unspecified syncope type (Primary Dx) 09/21/2024 Telephone Adult [address] [phone] Latesha France MD 09/20/[address] [phone] Latesha France MD 09/12/2024 1:15 PM EDT Ancillary Procedure [facility] [address] [place] [phone] Dyspnea on exertion 09/04/2024 11:30 AM EDT Office Visit [address] [phone] Latesha France MD Acne, unspecified acne type (Primary Dx) 09/03/2024 Telephone [facility] [address] [place] [phone] Maria Eugenia Mccartney MD 09/03/[address] [phone] Latesha France MD 08/27/2024 1:40 PM EDT Office Visit [facility] [address] [place] [phone] Yamilex Eagle NP Dyspnea on exertion (Primary Dx) 08/27/[address] [phone] Latesha France MD 08/23/2024 Telephone Obstetrics and Gynecology [address] [phone] Gemini Bazzi CNM 08/23/2024 Telephone Adult Medicine [place] - [address] [phone] Tayler Mandujano MA 08/22/2024 2:00 PM EDT Clinical Support Obstetrics and Gynecology - [address] [phone] Initiation of Depo Provera (Primary Dx) from [...] EDT Office Visit Obstetrics and Gynecology - [address] [phone] Sally Kinney, ALEJANDRO[address] 02/04/2025 1:00 PM EST Clinical Support Obstetrics and [facility] - [address] [phone] 03/22/2025 3:00 PM EST Office Visit Adult Medicine [address] [phone] Latesha France MD [address] [place] [address] [id number] Health Maintenance Due Date Last Done Comments [...] from the original result were not included. [facility] [address] [place] [id number] Pulmonary Functions Report Date of service: 11/09/24 [...] No pathogens isolated. 11/08/2024 10:35 AM EDT [facility] Swab Structure of anterior portion of neck / Unknown Non-blood Collection / Unknown 11/06/2024 9:13 AM EDT 11/06/2024 9:13 AM EDT Latesha France MD LAB MICROBIOLOGY - GENERAL ORDERABLES Final Result [facility] [address] [place] [address], [place] [phone] * XR Chest 2 Views (10/31/2024 1:52 PM EDT) Anatomical Region Laterality Modality Body Radiographic Domonique ging 10/31/2024 6:17 PM EDT Impressions 10/31/2024 6:17 PM EDT No acute cardiopulmonary process. -------- FINAL REPORT -------- Dictated By: Courtney Prakash Dictated Date: 10/31/2024 18:17 ET Assigned Physician: Courtney Prakash Reviewed and Electronically Signed By: Courtney Prakash Signed Date: 10/31/2024 18:17 ET Workstation ID: [id number] Transcribed By: Self Edit Transcribed Date: 10/31/2024 [...] Signed Date: 10/31/2024 18:17 ET Workstation ID: [id number] Transcribed By: Self Edit Transcribed Date: 10/31/2024 18:17 ET Latesha France MD IMG XR PROCEDURES Final Res ult * Interferon gamma interpretation (10/31/2024 1:39 PM EDT) Quantiferon Plus Interpretation Negative Negative LAB CHEMISTRY METHOD 11/02/2024 11:18 AM EDT [facility] Blood Venous blood specimen / Unknown Venipuncture / Unknown 10/31/2024 1:39 PM EDT 10/31/2024 1:39 PM EDT Latesha France MD LAB BLOOD ORDERABLES Final Result [facility] [address] [place] [address], [place] [phone] * Interferon gamma antigen 2 (10/31/2024 1:39 PM EDT) Blood Venous blood specimen / Unknown Venipuncture / Unknown 10/31/2024 1:39 PM EDT 10/31/2024 1:39 PM EDT Latesha France MD LAB BLOOD ORDERABLES Final Result [facility] [address] [place] [address], [place] [phone] * Interferon gamma antigen 1 (10/31/2024 1:39 PM EDT) Blood Venous blood specimen / Unknown Venipuncture / Unknown 10/31/2024 1:39 PM EDT 10/31/2024 1:39 PM EDT us Latesha France MD LAB BLOOD ORDERABLES Final Result Performing Organization Address [facility]/ZIP Co de Phone Number [facility] [address] [place] [address], [place] [phone] * Interferon gamma mitogen (10/31/2024 1:39 PM EDT) Blood Venous blood specimen / Unknown Venipuncture / Unknown 10/31/2024 1:39 PM EDT 10/31/2024 1:39 PM EDT Latesha France MD LAB BLOOD ORDERABLES Final Result Performing Organization Address [facility] [[email or web address]] Co de Phone Number [facility] [address] [place] [address], [place] [phone] * Interferon gamma NIL (10/31/2024 1:39 PM EDT) Blood Venous blood specimen / Unknown Venipuncture / Unknown 10/31/2024 1:39 PM EDT 10/31/2024 1:39 PM EDT Latesha France MD LAB BLOOD ORDERABLES Final Result Performing Organization Address [facility] de Phone Number [facility] [address] [place] [address], [place] [phone] * Myositis panel 3 (10/31/2024 1:39 PM [...] approved by the Food and Drug Administration. UT-2 Ab Negative Negative 11/16/2024 1:10 PM EDT [...] approved by the Food and Drug Administration. Anti-U1-STEAM SHOVELMAN Ab <20 <20 Units 11/16/2024 1:10 PM [...] the Food and Drug Administration. Fibrillarin (U3 STEAM SHOVELMAN) Ab Negative Negative 11/16/2024 1:10 PM EDT [facility] Comment: This test was developed and its performance characteristics determined by [facility]. It has not been cleared or approved by the Food and Drug Administration. Interpretation for Anti-Dottie-1, [id number], Anti-MDA-5, Anti-NXP-2, Anti-PM/Scl-100, Anti-SS-A 52 kD, Anti-U1 STEAM SHOVELMAN: Negative: <20 Weak Positive: 20 - 39 Moderate Positive: 40 - 80 Strong Positive: >80 . Test Performed by: [facility] [address] [place] [address] Blood Venous blood specimen / Unknown Venipuncture / Unknown 10/31/2024 1:39 PM EDT 10/31/2024 1:39 PM EDT us Latesha France MD LAB BLOOD ORDERABLES Final Result [facility] [address] [place] [address] * (ABNORMAL) Vitamin D 25 hydroxy (10/31/2024 1:39 PM EDT) Vit D, 25-Hydroxy 25.0(L) 30.0 - 80.0 ng/mL LAB CHEMISTRY METHOD 10/31/2024 5:29 PM EDT [facility] Blood Venous blood specimen / Unknown Venipuncture / Unknown 10/31/2024 1:39 PM EDT 10/31/2024 1:39 PM EDT Latesha France MD LAB BLOOD ORDERABLES Final Result [facility] [address] [place] [address], * Basic metabolic panel (10/31/2024 1:39 PM EDT) Sodium 136 133 - 145 mmol/L LAB CHEMISTRY METHOD 10/31/2024 4:33 PM [facility] Potassium 4.6 3.5 - 5.5 mmol/L LAB CHEMISTRY METHOD 10/31/2024 4:33 PM [facility] Chloride 103 96 - 110 mmol/L LAB CHEMISTRY METHOD 10/31/2024 4:33 PM [facility] CO2 29 21 - 32 mmol/L LAB CHEMISTRY METHOD 10/31/2024 4:33 PM [facility] Anion Gap 4 3 - 11 LAB CHEMISTRY METHOD 10/31/2024 4:33 PM [facility] Glucose 76 70 - 100 mg/dL LAB CHEMISTRY METHOD 10/31/2024 4:33 PM [facility] BUN 10 5 - 25 mg/dL LAB CHEMISTRY METHOD 10/31/2024 4:33 PM [facility] Creatinine 0.65 0.50 - 1.10 mg/dL LAB CHEMISTRY METHOD 10/31/2024 4:33 PM [facility] eGFR 127 >=60 mL/min/1. 73m2 LAB CHEMISTRY METHOD 10/31/2024 4:33 PM [facility] Comment:Calculation based on the Chronic Kidney Disease Epidemiology Collaboration (CKD-EPI) equation refit without adjustment for race. BUN/Creatinine Ratio 15.4 LAB CHEMISTRY METHOD 10/31/2024 4:33 PM EDT [facility] Calcium 9.7 8.5 - 10.5 mg/dL LAB CHEMISTRY METHOD 10/31/2024 4:33 PM EDT [facility] Blood Venous blood specimen / Unknown Venipuncture / Unknown 10/31/2024 1:39 PM EDT 10/31/2024 1:39 PM EDT Latesha France MD LAB BLOOD ORDERABLES Final Result Performing Organization Address City/[facility]/ZIP Co de Phone Number [facility] [address] [place] [address], [place] [phone] * Sjogrens antibodies, SSA and SSB (10/17/2024 12:22 PM EDT) Sjogren's SS-A (Ro) Ab Quant 1 <20 units LAB CHEMISTRY METHOD 10/21/2024 10:18 AM EDT [facility] Sjogren's SS-A (Ro) Ab Negative Negative LAB CHEMISTRY METHOD 10/21/2024 10:18 AM EDT [facility] Sjogren's SS-B (La) Ab Quant 2 <20 units LAB CHEMISTRY METHOD 10/21/2024 10:18 AM EDT [facility] Sjogren's SS-B (La) Ab Negative Negative LAB CHEMISTRY METHOD 10/21/2024 10:18 AM EDT [facility] Blood Venous blood specimen / Unknown Venipuncture / Unknown 10/17/2024 12:22 PM EDT 10/17/2024 12:22 PM EDT Latesha rFance MD LAB BLOOD ORDERABLES Final Result Performing Organization Address City/[facility]/ZIP Co de Phone Number [facility] [address] [place] [address], [place] [phone] * Myocardial antibody IgG, reflex to titer (10/17/2024 12:22 PM EDT) Myocardial Antibody Screen, IFA NEGATIVE NEGATIVE 10/25/2024 1:40 AM EDT [facility] Comment: This test was developed and its analytical performance characteristics have been determined by [facility]. It has not been cleared or approved by the FDA. This assay has been validated pursuant to the CLIA regulations and is used for clinical purposes. Myocardial Antibody Titer TNP 10/25/2024 1:40 AM EDT [facility] Comment: Test Not Performed. Screening test Negative or Not Detected. Titer not performed. Test Performed at: [facility] [address] [phone] Melba Anna MD, PhD, AZIZA Comment added after verification. Original result, verified by I/AUT at 01:40 on 10/25/2024 Blood Venous blood specimen / Unknown Venipuncture / Unknown 10/17/2024 12:22 PM EDT 10/17/2024 12:22 PM EDT Latesha France MD LAB BLOOD ORDERABLES Edited Result - Final [facility] [address] [place] [address] * Thyroid peroxidase antibody (10/17/2024 12:22 PM EDT) Pathologist [facility] Thyroid Peroxidase Ab 60.0 <=60.0 I Unit/mL LAB CHEMISTRY METHOD 10/17/2024 4:26 PM EDT [facility] Blood Venous blood specimen / Unknown Venipuncture / Unknown 10/17/2024 12:22 PM EDT 10/17/2024 12:22 PM EDT Latesha France MD LAB BLOOD ORDERABLES Final Result [facility] [address] [place] [address], * Iron and TIBC (10/17/2024 12:22 PM EDT) Only the most recent of2 resultswithin the time period is included. Iron 128 40 - 150 mcg/dL LAB CHEMISTRY METHOD 10/17/2024 3:07 PM EDT [facility] TIBC 365 250 - 450 mcg/dL LAB CHEMISTRY METHOD 10/17/2024 3:07 PM EDT [facility] Iron Saturation 35 15 - 50 % LAB CHEMISTRY METHOD 10/17/2024 3:07 PM EDT [facility] Blood Venous blood specimen / Unknown Venipuncture / Unknown 10/17/2024 12:22 PM EDT 10/17/2024 12:22 PM EDT Latesha France MD LAB BLOOD ORDERABLES Final Result Performing Organization Address City/[facility]/ZIP Co de Phone Number [facility] [address] [place] [address], [place] [phone] * Smooth muscle antibody IgG (10/17/2024 12:22 PM EDT) [facility] Smooth Muscle (F-Actin) IgG Ab 5 <20 UNITS 10/22/2024 2:00 PM EDT [facility] Comment: Interpretation: Negative Test performed at [facility], [address], [place], [place] [id number] Darcy Parker MD, PhD - Cartographic Engineer Blood Venous blood specimen / Unknown Venipuncture / Unknown 10/17/2024 12:22 PM EDT 10/17/2024 12:22 PM EDT Latesha France MD LAB BLOOD ORDERABLES Final Result [facility] [address] [place] [address] * Anti-scleroderma antibody (10/17/2024 12:22 PM EDT) Pathologist [facility] Scleroderma SCL - 70 Negative Negative LAB CHEMISTRY METHOD 10/21/2024 10:18 AM EDT [facility] Blood Venous blood specimen / Unknown Venipuncture / Unknown 10/17/2024 12:22 PM EDT 10/17/2024 12:22 PM EDT Latesha France MD LAB BLOOD ORDERABLES Final Result Performing Organization Address [facility]/ZIP Co de Phone Number [facility] [address] [place] [address], [place] [phone] * DNA antibody, double-stranded (10/17/2024 12:22 PM EDT) [facility] Anti-DNA Double Stranded Antibody Negative Negative LAB CHEMISTRY METHOD 10/21/2024 10:17 AM EDT [facility] ds DNA Ab 31 <=200 I Unit/mL LAB CHEMISTRY METHOD 10/21/2024 10:17 AM EDT [facility] Blood Venous blood specimen / Unknown Venipuncture / Unknown 10/17/2024 12:22 PM EDT 10/17/2024 12:22 PM EDT us Latesha France MD LAB BLOOD ORDERABLES Final Result Performing Organization Address [facility]/ZIP Co de Phone Number [facility] [address] [place] [address], [place] [phone] * Anti-parietal antibody (10/17/2024 12:22 PM EDT) [facility] Gastric Parietal Cell Ab 1.4 <=20 UNITS 10/26/2024 1:27 PM EDT [facility] Comment: Interpretation: Negative Test performed at [facility], [address] [place] [address] Darcy Parker MD, PhD - Cartographic Engineer Blood Venous blood specimen / Unknown Venipuncture / Unknown 10/17/2024 12:22 PM EDT 10/17/2024 12:22 PM EDT us Latesha France MD LAB BLOOD ORDERABLES Final Result [facility] [place] [address] * Antimitochondrial antibody (10/17/2024 12:22 PM EDT) Pathologist [facility] Mitochondrial Antibody Quantitative 13.7 <=20.0 units LAB CHEMISTRY METHOD 10/24/2024 11:29 AM EDT [facility] Mitochondrial Antibody Qualitative Negative Negative LAB CHEMISTRY METHOD 10/24/2024 11:29 AM EDT [facility] Blood Venous blood specimen / Unknown Venipuncture / Unknown 10/17/2024 12:22 PM EDT 10/17/2024 12:22 PM EDT Latesha France MD LAB BLOOD ORDERABLES Final Result Performing Organization Address [facility] [[email or web address]] Co de Phone Number [facility] [address] [place] [address], [place] [phone] * Rheumatoid factor (10/17/2024 12:22 PM EDT) [facility] Rheumatoid Factor <10.0 <15.0 I Unit/mL LAB CHEMISTRY METHOD 10/17/2024 3:07 PM EDT [facility] Blood Venous blood specimen / Unknown Venipuncture / Unknown 10/17/2024 12:22 PM EDT 10/17/2024 12:22 PM EDT us Latesha France MD LAB BLOOD ORDERABLES Final Result Performing Organization Address City/[facility]/ZIP Co de Phone Number [facility] [address] [place] [address], [place] [phone] * C3 complement (10/17/2024 12:22 PM EDT) C3 Complement 127 88 - 201 mg/dL LAB CHEMISTRY METHOD 10/17/2024 3:07 PM EDT [facility] Blood Venous blood specimen / Unknown Venipuncture / Unknown 10/17/2024 12:22 PM EDT 10/17/2024 12:22 PM EDT Latesha France MD LAB BLOOD ORDERABLES Final Result Performing Organization Address City/[facility]/ZIP Co de Phone Number [facility] [address] [place] [address], [place] [phone] * C4 complement (10/17/2024 12:22 PM EDT) C4 Complement 30 16 - 47 mg/dL LAB CHEMISTRY METHOD 10/17/2024 3:07 PM EDT [facility] Blood Venous blood specimen / Unknown Venipuncture / Unknown 10/17/2024 12:22 PM EDT 10/17/2024 12:22 PM EDT us Latesha France MD LAB BLOOD ORDERABLES Final Result Performing Organization Address City/[facility]/ZIP Co de Phone Number [facility] [address] [place] [address], [place] [phone] * Thyroid stimulating hormone with reflex to free t4 and free t3 (10/02/2024 2:28 PM EDT) TSH 1.35 0.40 - 4.00 mcIU/mL LAB CHEMISTRY METHOD 10/02/2024 7:20 PM EDT [facility] Blood Venous blood specimen / Unknown Venipuncture / Unknown 10/02/2024 2:28 PM EDT 10/02/2024 2:29 PM EDT us Latesha France MD LAB BLOOD ORDERABLES Final Result [facility] [address] [place] [address], * CBC auto differential (10/02/2024 2:28 PM EDT) WBC 6.2 4.8 - 10.8 K/mcL LAB HEMETOLOGY METHOD 10/02/2024 5:06 PM EDT [facility] RBC 4.40 3.80 - 4.80 M/mcL LAB HEMETOLOGY METHOD 10/02/2024 5:06 PM EDT [facility] Hemoglobin 12.7 11.5 - 16.0 g/dL LAB HEMETOLOGY METHOD 10/02/2024 5:06 PM EDT [facility] Hematocrit 38.1 35.0 - 47.0 % LAB HEMETOLOGY METHOD 10/02/2024 5:06 PM EDT [facility] MCV 87.4 79.0 - 98.0 FL LAB HEMETOLOGY METHOD 10/02/2024 5:06 PM EDT [facility] MCH 29.1 27.0 - 32.0 pcg LAB HEMETOLOGY METHOD 10/02/2024 5:06 PM EDT [facility] MCHC 33.3 32.0 - 37.0 g/dL LAB HEMETOLOGY METHOD 10/02/2024 5:06 PM EDT [facility] RDW 12.2 11.0 - 15.0 % LAB HEMETOLOGY METHOD 10/02/2024 5:06 PM EDT [facility] Platelets 311 130 - 400 K/mcL LAB HEMETOLOGY METHOD 10/02/2024 5:06 PM EDT [facility] MPV 10.6 7.0 - 11.0 FL LAB HEMETOLOGY METHOD 10/02/2024 5:06 PM EDT [facility] NRBC 0.0 <1.0 % LAB HEMETOLOGY METHOD 10/02/2024 5:06 PM [facility] NRBC Absolute 0.00 <0.10 K/mcL LAB HEMETOLOGY METHOD 10/02/2024 5:06 PM [facility] Neutrophils Relative 53.7 % LAB HEMETOLOGY METHOD 10/02/2024 5:06 PM [facility] Lymphocytes Relative 34.2 % LAB HEMETOLOGY METHOD 10/02/2024 5:06 PM [facility] Monocytes Relative 6.4 % LAB HEMETOLOGY METHOD 10/02/2024 5:06 PM [facility] Eosinophils Relative 4.8 % LAB HEMETOLOGY METHOD 10/02/2024 5:06 PM [facility] Basophils Relative 0.6 % LAB HEMETOLOGY METHOD 10/02/2024 5:06 PM [facility] Immature Granulocytes Relative 0.3 % LAB HEMETOLOGY METHOD 10/02/2024 5:06 PM [facility] Neutrophils Absolute 3.33 1.50 - 7.00 K/mcL LAB HEMETOLOGY METHOD 10/02/2024 5:06 PM [facility] Lymphocytes Absolute 2.13 1.00 - 5.00 K/mcL LAB HEMETOLOGY METHOD 10/02/2024 5:06 PM [facility] Monocytes Absolute 0.40 0.20 - 1.00 K/mcL LAB HEMETOLOGY METHOD 10/02/2024 5:06 PM [facility] Eosinophils Absolute 0.30 0.00 - 0.50 K/mcL LAB HEMETOLOGY METHOD 10/02/2024 5:06 PM [facility] Basophils Absolute 0.04 0.00 - 0.20 K/mcL LAB HEMETOLOGY METHOD 10/02/2024 5:06 PM [facility] Immature Granulocytes Absolute 0.02 0.00 - 0.03 K/mcL LAB HEMETOLOGY METHOD 10/02/2024 5:06 PM EDT [facility] Blood Venous blood specimen / Unknown Venipuncture / Unknown 10/02/2024 2:28 PM EDT 10/02/2024 2:29 PM EDT Latesha France MD LAB BLOOD ORDERABLES Final Result Performing Organization Address City/[facility]/ZIP Co de Phone Number [facility] [address] [place] [address], [place] [phone] * Creatine kinase (10/02/2024 2:28 PM EDT) Pathologist [facility] Total CK 59 22 - 269 unit/L LAB CHEMISTRY METHOD 10/02/2024 8:29 PM EDT [facility] Blood Venous blood specimen / Unknown Venipuncture / Unknown 10/02/2024 2:28 PM EDT 10/02/2024 2:29 PM EDT Latesha France MD LAB BLOOD ORDERABLES Final Result Performing Organization Address [facility]/ZIP Co de Phone Number [facility] [address] [place] [address], [place] [phone] * (ABNORMAL) Comprehensive metabolic panel (10/02/2024 2:28 PM EDT) Pathologist [facility] Sodium 136 133 - 145 mmol/L LAB CHEMISTRY METHOD 10/02/2024 8:29 PM EDT [facility] Potassium 4.4 3.5 - 5.5 mmol/L LAB CHEMISTRY METHOD 10/02/2024 8:29 PM EDT [facility] Chloride 104 96 - 110 mmol/L LAB CHEMISTRY METHOD 10/02/2024 8:29 PM EDT [facility] CO2 26 21 - 32 mmol/L LAB CHEMISTRY METHOD 10/02/2024 8:29 PM [facility] Anion Gap 6 3 - 11 LAB CHEMISTRY METHOD 10/02/2024 8:29 PM [facility] Glucose 90 70 - 100 mg/dL LAB CHEMISTRY METHOD 10/02/2024 8:29 PM [facility] BUN 9 5 - 25 mg/dL LAB CHEMISTRY METHOD 10/02/2024 8:29 PM [facility] Creatinine 0.67 0.50 - 1.10 mg/dL LAB CHEMISTRY METHOD 10/02/2024 8:29 PM [facility] eGFR 126 >=60 mL/min/1. 73m2 LAB CHEMISTRY METHOD 10/02/2024 8:29 PM [facility] Comment:Calculation based on the Chronic Kidney Disease Epidemiology Collaboration (CKD-EPI) equation refit without adjustment for race. BUN/Creatinine Ratio 13.4 LAB CHEMISTRY METHOD 10/02/2024 8:29 PM [facility] Calcium 10.1 8.5 - 10.5 mg/dL LAB CHEMISTRY METHOD 10/02/2024 8:29 PM [facility] AST (SGOT) 6(L) 10 - 42 unit/L LAB CHEMISTRY METHOD 10/02/2024 8:29 PM [facility] ALT (SGPT) 18 10 - 60 unit/L LAB CHEMISTRY METHOD 10/02/2024 8:29 PM [facility] Alkaline Phosphatase 54 42 - 121 unit/L LAB CHEMISTRY METHOD 10/02/2024 8:29 PM [facility] Total Protein 8.0 6.0 - 8.0 g/dL LAB CHEMISTRY METHOD 10/02/2024 8:29 PM [facility] Albumin 4.7 3.2 - 5.0 g/dL LAB CHEMISTRY METHOD 10/02/2024 8:29 PM [facility] Total Bilirubin 0.3 0.0 - 1.4 mg/dL LAB CHEMISTRY METHOD 10/02/2024 8:29 PM EDT [facility] Blood Venous blood specimen / Unknown Venipuncture / Unknown 10/02/2024 2:28 PM EDT 10/02/2024 2:29 PM EDT us Latesha France MD LAB BLOOD ORDERABLES Final Result [facility] [address] [place] [address], [place] [phone] * Exercise stress test (09/12/2024 1:42 PM [...] manually resulted (08/22/2024 2:00 PM EDT) Pathologist [facility] HCG, Ur POC Negative Negative POC hCG Int QC Pass? Yes Yes Urine Urine specimen obtained by clean catch procedure / Unknown 08/22/2024 2:00 PM EDT Mindy Flower CNM POINT OF CARE TEST ENTER/ED IT ORDERABLES Final Result * Lipid panel with reflex to direct LDL (07/19/2024 1:38 PM EDT) [facility] Cholesterol 142 0 - 200 mg/dL LAB CHEMISTRY METHOD 07/19/2024 5:47 PM EDT [facility] Triglycerides 54 0 - 150 mg/dL LAB CHEMISTRY METHOD 07/19/2024 5:47 PM EDT [facility] HDL 63 >=40 mg/dL LAB CHEMISTRY METHOD 07/19/2024 5:47 PM EDT [facility] LDL Calculated 68 0 - 100 mg/dL LAB CHEMISTRY METHOD 07/19/2024 5:47 PM EDT [facility] VLDL Cholesterol Nahid 10.8 mg/dL LAB CHEMISTRY METHOD 07/19/2024 5:47 PM EDT [facility] Non HDL Chol. (LDL+VLDL) 79 <145 mg/dL LAB CHEMISTRY METHOD 07/19/2024 5:47 PM EDT [facility] Chol/HDL Ratio 2.3 0.0 - 4.4 LAB CHEMISTRY METHOD 07/19/2024 5:47 PM EDT [facility] Blood Venous blood specimen / Unknown Venipuncture / Unknown 07/19/2024 1:38 PM EDT 07/19/2024 1:38 PM EDT Latesha France MD LAB BLOOD ORDERABLES Final Result [facility] [address] [place] [address], [place] [phone] * Chlamydia trachomatis and Neisseria gonorrhoeae molecular study (04/30/2024 10:52 AM EST) [facility] Neisseria gonorrhoeae PCR Negative Negative LAB MOLECULAR DIAGNOSTICS METHOD 05/01/2024 7:20 AM EST [facility] Chlamydia trachomatis PCR Negative Negative LAB MOLECULAR DIAGNOSTICS METHOD 05/01/2024 7:20 AM EST [facility] Swab Cervix uteri structure / Unknown Non-blood Collection / Unknown 04/30/2024 10:52 AM EST 04/30/2024 10:53 AM EST Sally Kinney CNM LAB MICROBIOLOGY - GENERAL ORDAustin MUÑIZ Final Result Performing Organization Address City/[facility]/ZIP Co de Phone Number [facility] [address] [place] [address], [place] [phone] * Cervical Cancer Screening: HPV (08/30/2023) Pathologist [facility] Cervical Cancer Screening: HPV abstracted; no interpretation Historical Provider HEALTH MAINTENANCE Final Result * Depression Screening (07/29/2023) Pathologist [facility] Depression Screening abstracted Historical Provider HEALTH MAINTENANCE Final Result from Last 3 Months or Most Recently Relevant to Health Maintenance Insurance [facility] [employer] Care Teams Ophthalmic Assistant Relationship Specialty Start Date End Date Latesha France MD [address] [place] [address] PCP - General Internal Medicine 02/13/24
--- OUTSIDE RECORDS SUMMARY | 2024-11-22 08:55 | XMS_ITS | Encounter Summary ---
Author Organization [facility] Address [address] [place] [address] Care Team Providers Care Principal Software Engineer Name Role Phone Latesha France MD Primary Care Provider [phone] Reason for Visit * Reason Onset Date Comments Abdominal Pain 11/19/2024 Encounter Details Date Type Department Care Team (Late st Contact Info) Description 11/19/2024 Telephone Obstetrics and Gynecology - [id number] [place] [address] Gemini Bazzi, [facility] [address] [place] [address] Social History Tobacco Use Types Packs/Day Years [...] and nausea - she spoke with the splitter machine nurse last week and was told the discomfort should subside- had her 2nd depo shot last Tuesday - but wants to be known that she is sexually active - asking for advice please call documented in this encounter Plan of Treatment Upcoming Encounters Date Type Department Care Team (Late st Contact Info) Description 12/17/2024 2:30 PM EDT Office Visit Obstetrics and Gynecology - [address] [phone] Sally Kinney [address] 02/04/2025 1:00 PM EST Clinical Support Obstetrics and Gynecology - [address] [phone] 03/22/2025 3:00 PM EST Office Visit Adult Medicine [address] [phone] Latesha France MD [address] [place] [address] documented as of this encounter Visit Diagnoses Not on filedocumented in this encounter Care Teams Principal Software Engineer Relationship Specialty Start Date End Date Latesha France MD [address] [place] [address] PCP - General Internal Medicine 02/13/24 documented as of this encounter
--- OUTSIDE RECORDS SUMMARY | 2024-11-22 08:55 | XMS_ITS | Encounter Summary ---
Author Organization [facility] Address [address] [place] [address] Care Team Providers Care Elevator Serviceman Name Role Phone Latesha France MD Primary Care Provider Reason for Visit * Reason Onset Date Comments Hypotension 03/19/2024 Encounter Details Date Type Department Care Team (Late st Contact Info) Description 03/19/2024 Nurse Triage Adult Medicine [address] [phone] Latesha France MD [address] [place] [phone] Social History Tobacco Use Types Packs/Day Years [...] traveled recently to another state outside of [place], [place], [place], [place], [place], [place], [place]? no o If yes, did you [...] not applicable PCP: Latesha France MD Payor: [employer] PLAN / Plan: [employer] MEDICAID / Product Type: *No Product type* / documented in this encounter Plan of Treatment Upcoming Encounters Date Type Department Care Team (Late st Contact Info) Description 12/17/2024 2:30 PM EDT Office Visit Obstetrics and Gynecology [address] [phone] Sally Kinney [address] 02/04/2025 1:00 PM EST Clinical Support Obstetrics and Gynecology - [address] [phone] 03/22/2025 3:00 PM EST Office Visit Adult Medicine [address] [phone] Latesha France MD [address] [place] [address] documented as of this encounter Visit Diagnoses Not on filedocumented in this encounter Additional Health Concerns Infection Onset Date Last Indicated Resolved Time Respiratory Rule-Out 05/22/2024 05/22/2024 025 7:00 PM EST C. difficile Rule-Out 05/23/2024 05/22/20242024 4:54 PM EST documented as of this encounter Care Teams Elevator Serviceman Relationship Specialty Start Date End Date Latesha France MD [address] [place] [address] PCP - General Internal Medicine 02/13/24 documented as of this encounter
== END 2024-11-22 09:39 | disposition home or self-care (01) ==
LOC: HO.HSMS 08:21
PROVIDERS: PCP Internal Medicine; Visit Provider Physician Assistant Medical
DX: G47.19 Other hypersomnia (principal); M54.50 Low back pain, unspecified; R51.9 Headache, unspecified
CPT/HCPCS: 99214

== ENCOUNTER 2024-12-03 13:41 | Outpatient (AMB) | payer OTHER, SELFPAY ==
--- OUTSIDE RECORDS SUMMARY | 2024-11-30 10:30 | XMS_ITS | Encounter Summary ---
Author Organization [facility] Address [address] [place] [address] Care Team Providers Care Travel Consultant Name Role Phone Latesha France MD Primary Care Provider [phone] Reason for Referral * Consultation (Urgent) - Authorized Specialty Diagnoses / Procedures Referred By Shabbir sandoval Referred To Contact Pulmonary Disease / Pulmonology Diagnoses Rib pain SOB (shortness of breath) Latesha France MD [address] [place] [address] Phone: tel: fax: [address] [phone] Phone: tel: fax: Referral ID Status Reason Start Date Expiration Date Visits Requested Visits Authorized [id number] Authorized Specialty Services Required 11/30/2024 11/30/2025 1 1 * Imaging (Routine) - Pending Review Specialty Diagnoses / Procedures Referred By Shabbir sandoval Referred To Contact Radiology Diagnoses Rib pain SOB (shortness of breath) Procedures CT Chest wo Contrast Latesha France MD [address] [place] [address] Phone: tel: fax: [address] [address] Phone: tel: Referral ID Status Reason Start Date Expiration Date V isits Requested Visits Authorized [id number] Pending Review 11/30/2024 11/30/2025 1 1 * Consultation (Routine) - Pending Review Specialty Diagnoses / Procedures Referred By Shabbir t Referred To Contact Physical Therapy Diagnoses Osteoarthritis of lumbar spine, unspecified spinal osteoarthritis complication status Low back pain, unspecified back pain laterality, unspecified chronicity, unspecified whether sciatica present Latesha France MD [address] [place] [address] Phone: tel: fax: Referral ID Status Reason Start Date Expiration Date Visits Requested Visits Authorized [id number] Pending Review Specialty Services Required 11/30/2024 11/30/2025 1 1 Reason for Visit * Reason Comments Follow-up [facility] f/u UTI sx Encounter Details Date Type Department Care Team (Late st Contact Info) Description 11/30/2024 10:30 AM EDT Office Visit Adult Medicine [address] [phone] Latesha France MD [address] [place] [phone] Paresthesia of both legs (Primary Dx); Constipation, unspecified constipation type; Loss of consciousness (CMS/HCC V24, CMS/HCC V28); Osteoarthritis of lumbar spine, unspecified spinal osteoarthritis complication status; Low back pain, unspecified back pain laterality, unspecified chronicity, unspecified whether sciatica present; Upper back pain; Rib pain; SOB (shortness of breath); Mitral valve insufficiency, unspecified etiology Social History Tobacco Use Types Packs/Day Years [...] PM EST documented as of this encounter Last Filed Vital Signs Vital Sign Reading Time Taken Comments Blood Pressure 120/74 11/30/2024 10:31 AM EDT Pulse 93 11/30/2024 10:31 AM EDT Temperature 36.4 C (97.5 F) 11/30/2024 10:31 AM EDT Respiratory Rate 12 11/30/2024 10:31 AM EDT Oxygen Saturation - - Inhaled Oxygen Concentration - - Weight 49 kg (108 lb) 11/30/2024 10:31 AM EDT Height 154.9 cm (5' 1 ) 11/30/2024 10:31 AM EDT Body Mass Index 20.41 11/30/2024 10:31 AM EDT documented in this encounter Patient Instructions * Attachments The following attachments cannot be sent through Care Everywhere. * Constipation (Thai) * High Fiber Diet (Thai) * Fiber Foods: General Info (Thai) documented in this encounter Ordered Prescriptions Prescription Sig Dispense Quantity Refills Last Filled Start Date End Date predniSONE (DELTASONE) 20 mg tablet Take 60 mg PO daily for 3 days, then take 40 mg PO daily for 3 days, then 20 mg PO daily for 3 days, then stop 18 tablet 11/30/2024 ibuprofen (ADVIL,MOTRIN) 600 mg tablet Take 1 tablet (600 mg total) by mouth every 8 (eight) hours if needed for mild pain or moderate pain (pain). 60 tablet 2 11/30/2024 documented in this encounter Progress Notes * Latesha France MD - 11/30/2024 10:30 AM EDT 10/19/24 Gabrielle Forrester [address] [place] [phone] Dear Gabrielle, After review of the medical information and benefit coverage, [facility] approved your referral. See below for additional details. If you have questions regarding this referral, please contact ([email or web address]). You must be actively enrolled in [employer] for coverage of the authorized service. If you have additional questions regarding your coverage, please contact [employer] directly. REFFERAL INFORMATION Referral #: [id number] Authorization#: Auth Status: Authorized Reason: No Approval Necessary - Patient Tracking Referred By Provider: Latesha France [facility] [phone] Referred To Provider: [address] [address] Referral Start Date: 10/17/2024 Referral End Date: 10/17/2025 SCHEDULING If you do not already have an appointment, please call [phone] to make an appointment. MORE INFORMATION You can access your medical information, lab results and billing information online at [email or web address]. Sincerely, Referral Relations Department [facility] . * Latesha France MD - 11/30/2024 10:30 AM EDT CHIEF COMPLAINT: Follow-up ([facility] f/u UTI sx) IDENTIFIER: Gabrielle Forrester is a 24 y.o. old female. HPI: History of Present Illness The patient is a female who presents for evaluation of urinary tract infection, back pain, and shortness of breath. She was hospitalized on 11/20/2024 due to lower abdominal pain and nausea. A urine sample collectedon that day confirmed a urinary tract infection (UTI). However, a subsequent urine test on 11/21/2024 showed no signs of UTI. Despite this, she was prescribed cephalexin, which she continues to take.She also takes ibuprofen 600 mg for pain management and is seeking a refill. During her hospital stay, she experienced a fainting episode in the waiting room, even though she had eaten and drank water. She reports that her constipation is currently stable, with regular bowel movements. She has been incorporating more fiber into her diet, including salads and foods containing tomatoes, lettuce, and corn. She also ensures adequate fluid intake. She has been experiencing right rib pain for the past month, which she rates as 8 out of 10 in severity. The pain intensifies when she stands or sits up. She has not engaged in physical therapy for this issue. She reports no recent injuries. She recently experienced an episode of shortness of breath, during which she was unable to speak and felt lightheaded. She also reported a sensation of tightness in her chest and difficulty breathing. These symptoms were alleviated after using albuterol. She is still taking gabapentin 300 mg at night, prescribed by Dr. Cam for numbness and tingling inher legs. It is helping, although she still experiences a slight pinch in her legs at night, but itis not as severe as it was initially. Diet: Incorporating more fiber, including salads and foods containing tomatoes, lettuce, and corn. ROS: The remainder of review of systems is noncontributory. PAST MEDICAL HISTORY: Patient Active Problem List Diagnosis Date Noted Osteoarthritis of lumbar spine 11/30/2024 Constipation 11/30/2024 Paresthesia of both legs 11/30/2024 Low back pain 11/30/2024 Rib pain 11/30/2024 Snoring 10/17/2024 Abnormal leg movement 10/02/2024 Pre-syncope 10/02/2024 Developmental delay, mild 08/17/2024 Hypoglycemia 07/24/2024 Pain in both lower extremities 07/24/2024 Abdominal discomfort 07/24/2024 Tinnitus of right ear 07/24/2024 Chest pain 07/24/2024 White matter abnormality on MRI of brain 07/19/2024 Weakness of both lower extremities 07/19/2024 Low bicarbonate 07/19/2024 Atherosclerosis of artery of both lower extremities (CMS/HCC V24) 07/19/2024 Engages in vaping 07/19/2024 Cannabis use disorder 07/19/2024 Nasal congestion 07/19/2024 Insomnia 01/26/2024 Hypotension 01/04/2024 Menorrhagia with regular cycle 01/04/2024 PTSD (post-traumatic stress disorder) 01/04/2024 Sinus tachycardia 01/04/2024 Syncope 10/18/2023 Psychogenic nonepileptic seizure 10/18/2023 Migraine without status migrainosus, not intractable 10/18/2023 Vasovagal syncope 04/08/2021 Moderate intellectual disabilities 04/08/2021 SOCIAL HISTORY: Social History Tobacco Use Smoking status: Never Smokeless tobacco: Never Substance Use Topics Alcohol use: Never FAMILY HISTORY: Family Status Relation Name Status PGF (Not Specified) MGF (Not Specified) Father (Not Specified) Mother's sadie Alive Neg Hx (Not Specified) No partnership data on file Family History Problem Relation Name Age of Onset No Known Problems Paternal Grandfather No Known Problems Maternal Grandfather No Known Problems Father Ovarian cancer Mother's side great great aunt Breast cancer Neg Hx Colon cancer Neg Hx Pancreatic cancer Neg Hx Kidney cancer Neg Hx Cancer of Small Bowel Neg Hx Uterine cancer Neg Hx ACTIVE MEDICATIONS: Outpatient Medications Marked as Taking for the 11/30/24 encounter (Office Visit) with Latesha France MD Medication Sig Dispense Refill albuterol HFA (Ventolin HFA) 90 mcg/actuation inhaler Inhale 2 puffs by mouth every 6 (six) hours if needed for shortness of breath. 8 g 1 benzoyl peroxide (Acne Medication) 2.5 % gel Apply 1 g topically 2 times daily as needed (acne). 30g 4 cholecalciferol (VITAMIN D-3) 50 mcg (2,000 unit) capsule Take 1 capsule (2,000 Units total) by mouth 1 (one) time each day. 30 each 11 fluticasone propionate (FLONASE) 50 mcg/actuation nasal spray SPRAY 2 SPRAYS INTO EACH NOSTRIL EVERY DAY SHAKE GENTLY. CLEAN TIP AND REPLACE CAP AFTER USE. 16 mL 3 medroxyPROGESTERone (Depo-Provera) 150 mg/mL injection Inject 1 mL (150 mg total) into the shoulder, thigh, or buttocks every 3 (three) months. 1 mL 3 ondansetron ODT (ZOFRAN-ODT) 4 mg disintegrating tablet TAKE 1 TABLET BY MOUTH EVERY 8 HOURS IF NEEDED FOR NAUSEA OR VOMITING. 20 tablet 3 PHENobarbitaL 30 mg tablet Take 1 tablet (30 mg total) by mouth 1 (one) time each day. sodium chloride (OCEAN) 0.65 % nasal spray Administer 1 spray into each nostril if needed for congestion. 15 mL 5 triamcinolone (KENALOG) 0.1 % ointment Apply topically 2 (two) times a day. For 2 weeks 30 g 2 ZOLMitriptan (ZOMIG) 2.5 mg tablet Take 1 tablet (2.5 mg total) by mouth 1 (one) time if needed formigraine. May repeat once after 2 hours. 18 tablet 3 ALLERGIES: Patient has no known allergies. PHYSICAL EXAM: Blood pressure 120/74, pulse 93, temperature 36.4 ??C (97.5 ??F), resp. rate 12, height 1.549 m (61 ), weight 49 kg (108 lb). Body mass index is 20.41 kg/m??. BMI is 18.5 to 24.9 (within the normal range) and will be followed Physical Exam General Appearance: Normal. Vital signs: Within normal limits. HEENT: Within normal limits. Respiratory: Clear to auscultation, no wheezing, rales or rhonchi. Cardiovascular: Regular rate and rhythm, no murmurs, rubs, or gallops. Back, Musculoskeletal: Tenderness noted on the right rib, upper back. Skin: Warm and dry, no rash. Neurological: Normal. LABS: Results Labs - Urine sample: 11/20/2024, Showed UTI - Urine sample: 11/21/2024, Showed no UTI - Kidney function: Normal - Electrolytes: Normal - Myositis panel: Fine - Vitamin D level: Slightly low Imaging - X-ray of legs: Showed mild arthritis changes at L5-S1 - Chest x-ray: Normal Diagnostic Testing - Lung function tests: Normal IMPRESSION: 1. Paresthesia of both legs 2. Constipation, unspecified constipation type 3. Loss of consciousness (CMS/HCC V24, CMS/HCC V28) 4. Osteoarthritis of lumbar spine, unspecified spinal osteoarthritis complication status 5. Low back pain, unspecified back pain laterality, unspecified chronicity, unspecified whether sciatica present 6. Upper back pain 7. Rib pain 8. SOB (shortness of breath) PLAN: Orders Placed This Encounter Procedures XR Thoracic Spine [address] Chest wo Contrast Ambulatory referral to Physical Therapy and Athletic Training Assessment & Plan 1. Urinary Tract Infection (UTI): - Hospitalized on 11/20/2024 due to lower abdominal pain and nausea. A urine sample confirmed a UTIon that day, but a subsequent test on 11/21/2024 showed no signs of UTI. - Continues to take cephalexin and ibuprofen 600 mg for pain management. Seeking a refill for ibuprofen. - Advised to complete the course of cephalexin. A prescription for ibuprofen 600 mg will be sent [facility], with instructions to take it with meals and only if necessary due to potential kidneyand stomach effects. If symptoms persist after completing the antibiotic course, a repeat urine test will be considered. 2. Back Pain: - Reports back pain likely musculoskeletal in nature, possibly related to mild arthritis in the lumbar spine. - Referral for physical therapy will be made. An x-ray of the thoracic spine will be ordered. - A prednisone taper will be prescribed to help manage the pain. Advised to apply ice to the back 3times daily for 10 to 15 minutes each time for the coming week. Gradual introduction of heat is recommended once inflammation is reduced. 3. Shortness of Breath: - A chest CT scan will be ordered to investigate the cause of the shortness of breath. A referral to a supervisor bottle machines will also be made. - If no contact is made within 2 to 3 weeks, she should inform us. 4. Constipation: - Reports that her constipation is currently stable, with regular bowel movements. - Incorporating more fiber into her diet, including salads and foods containing tomatoes, lettuce, and corn. Ensures adequate fluid intake. 5. Numbness and tingling in legs: - Continues to take gabapentin 300 mg at night, prescribed by Dr. Cam for numbness and tingling inher legs. It is helping, although she still experiences a slight pinch in her legs at night, but itis not as severe as it was initially. 6. Mitral valve insufficiency: - An echocardiogram performed in December 2023 revealed a mild leaky valve, but nothing significant. - Advised to contact her oil burner journeyman to discuss her recent loss of consciousness and ongoing episodes. 7. Vitamin D deficiency: - Advised to continue taking [id number] vitamin D with calcium 1000 mg until re-evaluation. REVIEWED AND RECONCILED MEDICATIONS Follow-up: A follow-up visit is scheduled for February 2025. ADDITIONAL ORDERS: AMB REFERRAL TO PHYSICAL THERAPY AND ATHLETIC TRAINING XR THORACIC SPINE [address] CHEST WO CONTRAST Latesha France MD on 11/30/2024 at 11:01 AM EDT I have obtained verbal consent from Gabrielle Barrygo prior to the recording. I have advised Gabrielle Avinaiago that she may refuse the recording and require the recording to be turned off at any time during this encounter. documented in this encounter Plan of Treatment Upcoming Encounters Date Type Department Care Team (Late st Contact Info) Description 12/17/2024 2:30 PM EDT Office Visit Obstetrics and Gynecology - [address] [phone] Sally Kinney CN [address] [place] [address] 12/19/2024 3:10 PM EDT Office Visit [facility] [address] [place] [phone] Yamilex Eagle NP [address] [place] [address] [address] [place] [phone] 12/31/2024 3:00 PM EDT Evaluation [facility] [address] [phone] Clara Rizzo, PT 02/04/2025 1:00 PM EST Clinical Support Obstetrics and Gynecology - [address] [phone] 03/22/2025 3:00 PM EST Office Visit Adult Medicine [place] - [address] [phone] Latesha France MD [address] [place] [phone] Scheduled Orders Name Type Priority Associated Diagnoses Orde r Schedule XR Thoracic Spine 2 Views Imaging Routine Upper back pain Expected: 11/30/2024, Expires: 11/30/2025 CT Chest wo Contrast Imaging Routine Rib pain SOB (shortness of breath) Expected: 11/30/2024, Expires: 11/30/2025 Scheduled Referrals Name Type Priority Associated Diagnoses Orde r Schedule Ambulatory referral to Physical Therapy and Athletic Training Outpatient Referral Routine Osteoarthritis of lumbar spine, unspecified spinal osteoarthritis complication status Low back pain, unspecified back pain laterality, unspecified chronicity, unspecified whether sciatica present 1 Occurrences starting 11/30/2024 until 11/30/2025 Ambulatory referral to Pulmonology Outpatient Referral Routine Rib pain SOB (shortness of breath) 1 Occurrences starting 11/30/2024 until 11/30/2025 documented as of this encounter Visit Diagnoses Diagnosis Paresthesia of both legs- Primary Disturbance of skin sensation Constipation, unspecified constipation type Loss of consciousness (CMS/HCC V24, CMS/HCC V28) Other alteration of consciousness Osteoarthritis of lumbar spine, unspecified spinal osteoarthritis complication status Low back pain, unspecified back pain laterality, unspecified chronicity, unspecified whether sciatica present Upper back pain Unspecified backache Rib pain Unspecified chest pain SOB (shortness of breath) Shortness of breath Mitral valve insufficiency, unspecified etiology documented in this encounter Discontinued Medications Medication Sig Discontinue Reason Start Date End Da te gabapentin (NEURONTIN) 100 mg capsule Take 1 capsule (100 mg total) by mouth 2 (two) times a day. 10/05/2024 11/30/2024 documented as of this encounter Historical Medications * This list may reflect changes made after this encounter. gabapentin (NEURONTIN) 300 mg capsule Take 1 capsule (300 mg total) by mouth at bedtime. added in this encounter Care Teams Travel Consultant Relationship Specialty Start Date End Date Latesha France MD [facility] [place] [address] PCP - General Internal Medicine 02/13/24 documented as of this encounter
--- NOTE | 2024-12-03 13:42 | A.OFFVIS_ITS ---
Vital Signs 12/03/24 13:52 Height 4 ft 11 in Weight 108 lb BMI 21.8 Blood Pressure Location Lt brachial Position Sitting Pulse 98 Pulse Oximetry (%) 99 Intake Visit Reasons: Follow up Accompanied by: Spouse Allergies paper tape Allergy (Intermediate, Uncoded 12/03/24 13:48) Rash Medication List - Last Reconciled 12/03/24 by Danelle Cole CNP acetaminophen 1,000 mg (2 x 500 mg) PO .q8 PRN adapalene 0.1% 1 appl topical BEDTIME albuterol sulfate 90 mcg/actuation (Ventolin HFA) 2 puffs inhalation Q6H PRN benzoyl peroxide 2.5% 1 appl topical BID dlcvlanwre-fxjobzqkuynpv-yczq 50-300-40 mg (Fioricet) 1 cap PO TID PRN cephalexin 500 mg PO TID 7 days cholecalciferol (vitamin D3) 25 mcg PO DAILY 3 months MDD 1000 unit gabapentin 300 mg PO BEDTIME ibuprofen 600 mg PO Q8H PRN medroxyprogesterone (Depo-Provera) 150 mg IM [id number] ondansetron 4 mg PO Q8H 3 days triamcinolone acetonide 0.1% 1 appl topical BID HPI Comments Details: 24-year-old woman with chronic stressors related to childhood, symptoms investigated in the past for seizure disorder with negative EEGs,?conversion disorder, and migraine headaches. She was here with her boyfriend. She has some body jerking and makes some whimpering sounds at night. She was taking gabapentin 300mg at bedtime for about 1 month, prescribed by permit agent. Her permit agent also ordered LS spine XR which apparently showed some degenerative changes and she was planning to start PT next month. She was scheduled for in-lab sleep study later this week. She was working with therapist and psychiatrist, who recommended trying medication for PTSD, but she was not interested. [facility] Medical History Somatization disorder Personality disorder Conversion disorder with seizures or convulsions Seizure Vasovagal syncope Syncope Sinus tachycardia PTSD (post-traumatic stress disorder) Moderate intellectual disabilities Migraine without status migrainosus, not intractable Menorrhagia with regular cycle Hypotension Insomnia Anxiety Migraine Family History Mother Headache Social History Unable to assess alcohol history related to: Unable to respond Alcohol intake: never Patient Tobacco Use Status: Never used Tobacco e-Cigarette/Vaping Use: Never Used Review of Systems Const Denies chills, Denies daytime sleepiness, Reports difficulty sleeping, Denies f atigue, Denies fever(s), Denies frequent falls, Reports headache(s), Denies increased appetite, Denies poor appetite, Denies snoring, Denies weakness, Denies weight gain and Denies weight loss Eyes Denies loss of vision ENT Denies vertigo, Denies dizziness and Reports headache(s) Card Denies chest pain at rest, Denies chest pain with activity, Denies syncope, Denies leg edema and Denies palpitations Resp Denies snoring GI Denies constipation, Denies heartburn, Denies diarrhea and Denies nausea Denies urinary frequency, Denies urinary incontinence and Denies urinary urgency Musc Denies abnormal gait, Denies numbness and Denies tingling Skin/Breast Denies dry skin and Denies rash Neuro Denies abnormal gait, Denies vertigo, Denies dizziness, Denies syncope, Denies frequent falls, Reports headache(s), Denies lack of coordination, Denies loss of vision, Denies memory loss, Denies numbness, Denies restless legs, Denies seizure-like activity, Denies tingling, Denies paresthesias, Denies tremor(s) and Denies weakness Psych Denies anxiety, Denies depression, Denies auditory hallucinations, Denies memory loss, Denies visual hallucinations and Denies suicidal ideation Endo Denies fatigue and Denies palpitations Physical Exam Neuro Other: Mental Status: Alert and oriented to person, place, and time. Normal attention. Normal spontaneous speech, fluency, and comprehension. No obvious issues with mood and memory. Affect is appropriate. Cranial Nerves: CN II: Visual moss full to confrontation, visual acuity intact. CN III, IV, : Pupils equal, round, reactive to light and accommodation. Extraocular movements are normal. CN V: Facial sensation is normal. CN VII: Facial movements symmetrical. CN VIII: Hearing intact to bedside conversation is normal. CN IX, X: Palate elevates symmetrically. CN XI: Shoulder shrug and head turn symmetrical. CN XII: Tongue midline without atrophy or fasciculations. Motor: Bulk and tone normal in all extremities. No significant muscle weakness in arms and legs. No drift. Reflexes: Deep tendon reflexes 2+ and symmetric. Plantar response down-going bilaterally. Coordination: Zvkgst-kz-wtmm and lqqn-si-utcx testing normal. No dysmetria. Gait and Station: No obvious gait abnormality. No ataxia or instability. Sensory: Intact to light touch, pinprick, and vibration. Romberg is negative. Extrapyramidal: Full facial expressions and blinking. No rigidity. Movements are appropriate with no tremor or abnormality. Speech: Normal; no dysarthria or tremor. Results Reviewed Results Reviewed: EEG at office in 09/24/2024: WNL MRI brain WO at [facility] in May 2024: One left frontal WM small lesion, non specific 48 hr EEG at [facility] in Dec 2023: WNL with symptoms reported CT brain WO at [facility] in May 2023: WNL EEG in office 10/05/2023: WNL Cardiac event monitor 08/03/2024 (reported): 1. Predominant rhythm was sinus, with sinus arrhythmia. 2. Average HR was 80 bpm, min HR 51, max HR 169 3. Total VE burden <0.1% consisting of singles 4. Total SVE burden <0.1% consisting of singles 5. 21 patient triggered symptomatic events events, some episodes associated with sinus arrhythmia and sinus tachycardiac Assessment & Plan Assessment & Plan (1) Somatization disorder: Code(s): F45.0 - Somatization disorder Category: Medical Plan: She was educated about the impact of sometimes childhood emotionally traumatic experiences causing seizure-like episodes. Counseling and therapy works the best, provided a good help is available. She was advised to continue working with therapist and psychiatrist. (2) Migraine without aura: Code(s): G43.009 - Migraine without aura, not intractable, without status migrainosus Category: Medical Qualifiers: Status migrainosus presence: without status migrainosus Intractability: not intractable Qualified Code(s): G43.009 - Migraine without aura, not intractable, without status migrainosus Plan: No significant migraines at this time. (3) Sleep disorder: Code(s): G47.9 - Sleep disorder, unspecified Category: Medical Plan: She was following with permit agent who was prescribing gabapentin 300mg at bedtime. She has in-lab sleep study scheduled for later this week. This office was not prescribing her any medications and she has follow up with [facility] [place] in 02/2025. Follow up here will be as needed. Plan Meds tried: topiramate, propranolol, sumatriptan, butalbutal, phenobarbital Coding Level of Care Code Est Pt Level 4 (69386) Diagnoses Somatization disorder F45.0 Migraine without aura and without status migrainosus, not intractable G43.009 Status migrainosus presence: without status migrainosus Intractability: not intractable Sleep disorder G47.9
[2024-12-03 13:52] VITALS: PULSE 98; O2SAT 99; BMI 21.8
--- OUTSIDE RECORDS SUMMARY | 2024-12-03 15:54 | XMS_ITS | Encounter Summary ---
Author Organization [facility] Address [address] [place] [address] Care Team Providers Care Pre Planning Advisor Name Role Phone Latesha France MD Primary Care Provider Reason for Visit * Reason Onset Date Comments Cough 04/02/2024 Encounter Details Date Type Department Care Team (Late st Contact Info) Description 04/02/2024 Nurse Triage Adult Medicine [address] [phone] Latesha France MD [address] [place] [id number] Social History Tobacco Use Types Packs/Day Years [...] to watch for that would require immediate attention.If symptoms change, worsen or increase in intensity, [...] recently to another state outside of [place], [place], [place], [place], [place], [place], [place]? no o If yes, did you quarantine [...] 3rd republican insurance information Third Libertarian Information: n/a PCP: Latesha France MD Payor: [employer] / Plan: [facility] MEDICA[facility] / Product Type: *No Product type* / documented in this encounter Plan of Treatment Upcoming Encounters Date Type Department Care Team (Marcelo st Contact Info) Description 12/17/2024 2:30 PM EDT Office Visit Obstetrics and Gynecology - [address] [phone] Sally Kinney CNM [address] [place], [place] 12/19/2024 3:10 PM EDT Office Visit [facility] [address] [place] [address] Yamilex Eagle NP [address] [place] [address] Dr [address] [place] [address] 12/31/2024 3:00 PM EDT Evaluation [facility] [place] [address] [facility] [address] [place] [phone] Clara Rizzo, PT 02/04/2025 1:00 PM EST Clinical Support Obstetrics and Gynecology - [address] [phone] 03/22/2025 3:00 PM EST Office Visit Adult Medicine [place] - [address] [phone] Latesha France MD [address] [place] [address] documented as of this encounter Visit Diagnoses Not on filedocumented in this encounter Additional Health Concerns Infection Onset Date Last Indicated Resolved Time Respiratory Rule-Out 05/22/2024 05/22/2024 025 7:00 PM EST C. difficile Rule-Out 05/23/2024 05/22/20242024 4:54 PM EST documented as of this encounter Care Teams Pre Planning Advisor Relationship Specialty Start Date End Date Latesha France MD [address] [place] [address] PCP - General Internal Medicine 02/13/24 documented as of this encounter
--- OUTSIDE RECORDS SUMMARY | 2024-12-03 15:54 | XMS_ITS | Encounter Summary ---
Author Organization [facility] Address [address] [place] [address] Care Team Providers Care Sap Basis Name Role Phone Latesha France MD Primary Care Provider [phone] Reason for Visit * Reason Onset Date Comments Chest Pain and Syncope 11/30/2024 Encounter Details Date Type Department Care Team (Late st Contact Info) Description 11/30/2024 Telephone [facility] - [facility] [address] [facility] [address] [place] [address] Yamilex Eagle NP [address] [place] [address] [place] [phone] Social History Tobacco Use Types Packs/Day Years [...] as of this encounter Progress Notes * Demi Martin RN - 11/30/2024 3:19 PM EDT I spoke to Gabrielle and informed her of the below message from [facility] Yamilex Eagle. Per LS, I can offer an appt to the patient on 12/19/24. I scheduled the patient for an office visit with on 12/19/24 @ 3:10 PM. * Yamilex Eagle NP - 11/30/2024 2:39 PM EDT Ok to schedule a follow up visit with me; looks like her PCP ordered a chest CT. She has had extensive reassuring cardiac workup including an echocardiogram, tilt table test, monitor and stress test.Please reassure the patient of these findings so far. * Demi Martin RN - 11/30/2024 1:12 PM EDT Gabrielle Forrester is a 24 y.o. female, followed by Dr. Mccartney/ [facility] Yamilex Eagle with a history of syncope, migraines, seizure-like activity and PTSD. She was last seen in the office 09/25/24. Christina Newton transferred the patient to ok. I spoke to her for 14 minutes. She denies chest pain today. The patient is calling to make an appointment and inform the office of two incidents that happened and onset of intermittent chest pain. She shared on 11/20/24, she went to [facility]. While she was in the waiting room, she had a syncopal episode, and needed four sternal rubs. On 11/24/24, the patient reported where she felt short of breath, out of it, and lightheaded from 12:50 PM to 1:20 PM. Her partner was encouraging her to keep her eyes open as her eyes were rolling back while laying down and noticed that her chest was sinking in. The patient saw her PCP today and the note is viewable in Epic. Additionally, on 11/22/24 the patientreported chest pain intermittently that lasts 5 seconds at a time. CP occurs every other day and she describes the pain as dull and sharp pinch, that can occur anytime, but mostly while laying. Repo rts this is different than the rib pain she reported to PCP. Her blood pressure the morning of 11/20/24 was 115/79, HR 73 bpm. Last night, BP 93/59, HR 72. She felt a little lightheaded and felt better after eating a snack. This morning, BP 103/74, HR 68 bpm. Iris reports staying hydrated. The patient reports only med change an antibiotic for UTI. Please advise. documented in this encounter Plan of Treatment Upcoming Encounters Date Type Department Care Team (Late st Contact Info) Description 12/17/2024 2:30 PM EDT Office Visit Obstetrics and Gynecology - [address] [phone] Sally Kinney CNM [address] [place] [address] 12/19/2024 3:10 PM EDT Office Visit [facility] [address] [facility] [address] [place] [phone] Yamilex Eagle NP [address] [place] [address] Dr [address] [place] [phone] 12/31/2024 3:00 PM EDT Evaluation [facility] [address] [phone] Clara Rizzo, PT 02/04/2025 1:00 PM EST Clinical Support Obstetrics and Gynecology - [address] [phone] 03/22/2025 3:00 PM EST Office Visit Adult Medicine [place] - [address] [phone] Latesha France MD [address] [place] [address] documented as of this encounter Visit Diagnoses Not on filedocumented in this encounter Care Teams Sap Basis Relationship Specialty Start Date End Date Latesha France MD [address] [place] [address] PCP - General Internal Medicine 02/13/24 documented as of this encounter
--- OUTSIDE RECORDS SUMMARY | 2024-12-03 15:54 | XMS_ITS | Clinical Summary ---
Author Organization [facility] [address] [facility] lding Address [address] [place] [address] Phone Care Team Providers Care Cake Inspector Name Role Phone Latesha France MD Primary Care Provider [phone] Allergies No known active allergies Medications fluticasone propionate (FLONASE) 50 mcg/actuation nasal spray SPRAY 2 SPRAYS INTO EACH NOSTRIL EVERY DAY SHAKE GENTLY. CLEAN TIP AND REPLACE CAP AFTER USE. 16 mL 3 05/11/19 25 Active triamcinolone (KENALOG) 0.1 % ointment Apply topically 2 (two) times a day. For 2 weeks 30 g 2 05/11/19 25 Active sodium chloride (OCEAN) 0.65 % nasal spray Administer 1 spray into each nostril if needed for congestion. 15 mL 5 07/20/19 25 2025 Active benzoyl peroxide (Acne Medication) 2.5 % gel Apply 1 g topically 2 times daily as needed (acne). 30 g 4 08/04/19 25 Active PHENobarbitaL 30 mg tablet Take 1 tablet (30 mg total) by mouth 1 (one) time each day. 08/15/19 25 Active medroxyPROGESTERo ne (Depo-Provera) 150 mg/mL injection Inject 1 mL (150 mg total) into the shoulder, thigh, or buttocks every 3 (three) months. 1 mL 3 08/18/19 25 Active ZOLMitriptan (ZOMIG) 2.5 mg tablet Take 1 tablet (2.5 mg total) by mouth 1 (one) time if needed for migraine. May repeat once after 2 hours. 18 tablet 3 10/18/19 25 2025 Active albuterol HFA (Ventolin HFA) 90 mcg/actuation inhaler Inhale 2 puffs by mouth every 6 (six) hours if needed for shortness of breath. 8 g 1 11/01/19 25 2025 Active cholecalciferol (VITAMIN D-3) 50 mcg (2,000 unit) capsule Take 1 capsule (2,000 Units total) by mouth 1 (one) time each day. 30 each 11 11/02/19 25 2025 Active ondansetron ODT (ZOFRAN-ODT) 4 mg disintegrating tablet TAKE 1 TABLET BY MOUTH EVERY 8 HOURS IF NEEDED FOR NAUSEA OR VOMITING. 20 tablet 3 11/29/19 25 Active ibuprofen (ADVIL,MOTRIN) 600 mg tablet Take 1 tablet (600 mg total) by mouth every 8 (eight) hours if needed for mild pain or moderate pain (pain). 60 tablet 2 12/01/19 25 Active gabapentin (NEURONTIN) 300 mg capsule Take 1 capsule (300 mg total) by mouth at bedtime. Active predniSONE (DELTASONE) 20 mg tablet Take 60 mg PO daily for 3 days, then take 40 mg PO daily for 3 days, then 20 mg PO daily for 3 days, then stop 18 tablet 12/01/19 25 Active ondansetron ODT (ZOFRAN-ODT) 4 mg disintegrating tablet Take 1 tablet (4 mg total) by mouth every 8 (eight) hours if needed for nausea or vomiting. 20 tablet 08/07/19 25 2024 Discontinued gabapentin (NEURONTIN) 100 mg capsule Take 1 capsule (100 mg total) by mouth 2 (two) times a day. 60 each 10/06/19 25 2024 Discontinued Hospital, Clinic, or Other Facility Administered Medication Ordered Dose Route Frequency Start Date End Date Status medroxyPROGESTERone (DEPO-PROVERA) injection 150 mgIndications:Encounter for management and injection of depo-Provera 150 mg IM Once 11/12/2024 11/12/2024 Ended Active Problems Problem Noted Date Diagnosed Date Osteoarthritis of lumbar spine 11/30/2024 Constipation 11/30/2024 [...] Encounters Date Type Department Care Team Description 11/30/2024 10:30 AM EDT Office Visit Adult Medicine [address] [phone] Latesha France MD Paresthesia of both legs (Primary Dx); Constipation, unspecified constipation type; Loss of consciousness (CMS/HCC V24, CMS/HCC V28); Osteoarthritis of lumbar spine, unspecified spinal osteoarthritis complication status; Low back pain, unspecified back pain laterality, unspecified chronicity, unspecified whether sciatica present; Upper back pain; Rib pain; SOB (shortness of breath); Mitral valve insufficiency, unspecified etiology 11/30/2024 Telephone [facility] [address] [facility] [address] [place] [phone] Yamilex Eagle NP 11/23/2024 3:14 PM EDT - 11/23/2024 11:59 PM EDT Hospital Encounter XRAY - [address] [phone] Pain Discharge Disposition: Home or Self Care 11/22/2024 Telephone Obstetrics and [address] [phone] Sally Kinney CNM 11/22/2024 Telephone Adult Medicine [address] [phone] Latesha France MD 11/20/2024 Telephone Adult Medicine [address] [phone] Latesha France MD 11/19/2024 Telephone Obstetrics and Gynecology [address] [phone] Gemini Bazzi CNM 11/15/2024 Telephone Adult Medicine [address] [phone] Latesha France MD 11/14/2024 Telephone Obstetrics and Gynecology [address] [phone] Sally Kinney CNM 11/12/2024 1:00 PM EDT Clinical Support Obstetrics and Gynecology - [address] [phone] Encounter for management and injection of depo-Provera (Primary Dx) 11/09/2024 7:20 AM EDT - 11/09/2024 11:59 PM EDT Hospital Encounter [facility] [address] [place] [phone] Discharge Disposition: Home or Self Care 11/07/2024 Telephone Obstetrics [address] [phone] Sally Kinney CNM 11/06/2024 8:30 AM EDT Office Visit [address] [phone] Latesha France MD Enlarged tonsils (Primary Dx); Sore throat; Localized swelling on left hand 11/05/[address] [phone] Sally Kinney CNM 11/02/[address] [phone] Latesha France MD 11/01/[address] [phone] Latesha France MD 10/31/2024 1:39 PM EDT - 10/31/2024 11:59 PM EDT Hospital Encounter [address] [phone] SOB (shortness of breath) Discharge Disposition: Home or Self Care 10/31/2024 1:00 PM EDT Office Visit [address] [phone] Latesha France MD Psychogenic nonepileptic seizure (Primary Dx); Vitamin D deficiency; SOB (shortness of breath) 10/29/[address] [phone] Latesha France MD 10/26/2024 Telephone [facility] [address] [place] [phone] Maria Eugenia Mccartney MD 10/26/2024 Telephone Adult [address] [phone] Latesha France MD 10/25/2024 Telephone Adult [address] [phone] Latesha France MD 10/24/[address] [phone] Latesha France MD 10/22/[address] [phone] Latesha France MD 10/19/[address] [phone] Latesha France MD 10/18/2024 Telephone Adult [address] [phone] Latesha France MD 10/17/2024 12:30 PM EDT Office Visit [address] [phone] Latesha France MD Other migraine without status migrainosus, not intractable (Primary Dx); Snoring; Repeated interruption of sleep during rapid eye movement stage; Vitamin D deficiency; Iron deficiency anemia, unspecified iron deficiency anemia type; Pain in both lower extremities 10/15/2024 Telephone Adult [address] [phone] Latesha France MD 10/12/2024 Telephone Adult [address] [phone] Latesha France MD 10/02/2024 2:30 PM EDT Office Visit Adult Medicine [address] [phone] Latesha France MD Pain in both lower extremities (Primary Dx); Abnormal leg movement; Pre-syncope; Syncope, unspecified syncope type; Weakness of both lower extremities 09/25/2024 11:10 AM EDT Office Visit [facility] [address] [place] [phone] Yamilex Eagle NP Syncope, unspecified syncope type (Primary Dx) 09/21/2024 Telephone Adult Medicine [address] [phone] Latesha France MD 09/20/[address] [phone] Latesha France MD 09/12/2024 1:15 PM EDT Ancillary Procedure [facility] [address] [place] [address] Dyspnea on exertion 09/04/2024 11:30 AM EDT Office Visit [facility] Medicine [address] [phone] Latesha France MD Acne, unspecified acne type (Primary Dx) 09/03/2024 Telephone [facility] [address] [place] [phone] Maria Eugenia Mccartney MD 09/03/2024 Telephone Adult Medicine [address] [phone] Latesha France MD from Last 3 Months Immunizations Name Administration [...] 12 11/30/2024 10:31 AM EDT Oxygen Saturation 98% 09/25/2024 10:51 AM EDT Inhaled Oxygen Concentration - - Weight 49 kg (108 lb) 11/30/2024 10:31 AM EDT Height 154.9 cm (5' 1 ) 11/30/2024 10:31 AM EDT Body Mass Index 20.41 11/30/2024 10:31 AM EDT Plan of Treatment Upcoming Encounters Date Type Department Care Team (Late st Contact Info) Description 12/17/2024 2:30 PM EDT Office Visit Obstetrics and Gynecology - [address] [phone] Sally Kinney CNM [address] [place] [address] 12/19/2024 3:10 PM EDT Office Visit [facility] [address] [place] [address] Yamilex Eagle, LEANA [address] [place] [address] [address] [place] [phone] 12/31/2024 3:00 PM EDT Evaluation [facility] [place] [address] [facility] [address] [facility] [address] [place] [phone] Clara Rizzo, PT 02/04/2025 1:00 PM EST Clinical Support Obstetrics and Gynecology - [address] [phone] 03/22/2025 3:00 PM EST Office Visit Adult Medicine [facility] - [address] [phone] Latesha France MD [address] [place] [phone] Health Maintenance Due Date Last Done Comments Meningococcal B Vaccine (1 o f 2 - Standard) 2017 Hepatitis B Vaccines (1 of 3 - 19+ 3-dose series) 2020 HIV Screening 02/28/2022 Hepatitis C Screening 02/28/2022 Social Influencers of Health Screening 02/28/2022 Depression Screening 03/28/2024 07/29/2023 COVID-19 Vaccine (3 - 2024-2 6 season) 2024 08/22/2020, 07/25/2020 Influenza Vaccine (#1) 2024 Gonorrhea/Chlamydia Screening 04/30/2025 [...] Procedure Name Priority Date/Time Associated Diagnosis Comments XR LUMBAR SPINE 4+ VIEWS Routine 025 3:[address] ABDOMEN PELVIS W CONTRAST Routine 11/23/2024 2:11 PM EDT HC SPIROMETRY BRONCHODILATION RESPONSIVENESS PRE/POST BRONCHODILATOR ADMINISTRATION [...] (shortness of breath) INTERFERON GAMMA MITOGEN Routine 025 1:39 PM EDT SOB (shortness of [...] 09/12/2024 1:42 PM EDT Dyspnea on exertion LIPID PANEL WITH REFLEX TO DIRECT LDL Routine 07/19/2024 1:38 PM EDT Atherosclerosis of artery of both lower extremities (CMS/HCC V24) CHLAMYDIA TRACHOMATIS AND NEISSERIA GONORRHOEAE PCR Routine 04/30/2024 10:52 AM EST Menorrhagia with regular cycle Crampy pain associated with menses HM HPV Routine 08/30/2023 DEPRESSION SCREENING Routine 07/29/2023 from Last 3 Months or Most Recently Relevant to Health Maintenance Results * XR Lumbar Spine 4+ Views (11/23/2024 3:22 PM EDT) Anatomical Region Laterality Modality Spine, L-spine Radiographic Domonique ging 11/23/2024 11:3 8 PM EDT Narrative 11/23/2024 11:39 PM EDT Lumbosacral spine, 4 views. History pain. Comparison with previous examination from 06/19/2024. Vertebral bodies and disc spaces are maintained in height. There is no fractures, dislocations or effusion. There are very mild degenerative changes in the facet joints at L5-S1 level. Incidental findings of constipation. CONCLUSIONS: Mild degenerative changes in the facet joints at L5-S1 level. Constipation -------- FINAL REPORT -------- Dictated By: Maura Barrios Dictated Date: 11/23/2024 23:38 ET Assigned Physician: Maura Barrios Reviewed and Electronically Signed By: Maura Barrios Signed Date: 11/23/2024 23:39 ET Workstation ID: [id number] Transcribed By: Self Edit Transcribed Date: 11/23/2024 23:38 ET Procedure Note Maura Barrios MD - 11/23/2024 Lumbosacral spine, 4 views. History pain. Comparison with previous examination from 06/19/2024. Vertebral bodies and disc spaces are maintained in height. There is nofractures, dislocations or effusion. There are very mild degenerativechanges in the facet joints at L5-S1 level. Incidental findings ofconstipation. CONCLUSIONS: Mild degenerative changes in the facet joints at L5-S1 level.Constipation -------- FINAL REPORT -------- Dictated By: Maura Barrios Dictated Date: 11/23/2024 23:38 ET Assigned Physician: Maura Barrios Reviewed and Electronically Signed By: Rokhlenko, Maura Signed Date: 11/23/2024 23:39 ET Workstation ID: [id number] Transcribed By: Self Edit Transcribed Date: 11/23/2024 23:38 ET Sebastián JONES IMG XR PROCEDURES Final Result * CT Abdomen Pelvis w Contrast (11/23/2024 2:11 PM EDT) Anatomical Region Laterality Modality Body Computed Tomogra phy Historical Provider IMG CT PROCEDURES Final R esult * Pulmonary function testing: Spirometry with Bronchodilator, Spirometry (11/09/2024 8:01 AM EDT) Narrative Jennifer Kaufman MD - 11/09/2024 6:58 PM EDT Table formatting from the original result was not included. Images from the original result were not included. [facility] [address] [place] [id number] Pulmonary Functions Report Date of service: 11/09/24 Patient Name: Gabrielle Forrester Date of : 2000 Age: 24 y.o. [...] additional results and graphs. Interpretation/Impression: No obstruction. Result [facility] Latesha France MD PFT ORDERABLES Final Resul t * POC rapid strep A manually resulted (11/06/2024 9:14 AM EDT) Rapid Strep A Screen POC Negative Negative Internal Control Pass Yes Yes Swab Structure of anterior portion of neck / Unknown 11/06/2024 9:14 AM EDT us Latesha France MD POINT OF CARE TEST ENTER/ED IT ORDERABLES Final Result * Culture throat (11/06/2024 9:13 AM EDT) Culture, Throat No pathogens isolated. 11/08/2024 10:35 AM EDT [facility] Swab Structure of anterior portion of neck / Unknown Non-blood Collection / Unknown 11/06/2024 9:13 AM EDT 11/06/2024 9:13 AM EDT Latesha France MD LAB MICROBIOLOGY - GENERAL ORDERABLES Final Result [facility] [address] [place] [address], [place] [phone] * XR Chest 2 Views (10/31/2024 1:52 PM EDT) Anatomical Region Laterality Modality Body Radiographic Domonique ging 10/31/2024 6:17 PM EDT Impressions 10/31/2024 6:17 PM EDT No acute cardiopulmonary process. -------- FINAL REPORT -------- Dictated By: Courtney Prakash Dictated Date: 10/31/2024 18:17 ET Assigned Physician: Courtney Prakash Reviewed and Electronically Signed By: Courtney Prakash Signed Date: 10/31/2024 18:17 ET Workstation ID: [id number] Transcribed By: Self Edit Transcribed Date: 10/31/2024 [...] Signed Date: 10/31/2024 18:17 ET Workstation ID: [id number] Transcribed By: Self Edit Transcribed Date: 10/31/2024 18:17 ET us Latesha France MD IMG XR PROCEDURES Final Res ult * Interferon gamma interpretation (10/31/2024 1:39 PM EDT) Quantiferon Plus Interpretation Negative Negative LAB CHEMISTRY METHOD 11/02/2024 11:18 AM EDT [facility] Blood Venous blood specimen / Unknown Venipuncture / Unknown 10/31/2024 1:39 PM EDT 10/31/2024 1:39 PM EDT us Latesha France MD LAB BLOOD ORDERABLES Final Result Performing Organization Address [facility]/ZIP Co de Phone Number [facility] [address] [place] [address], [place] [phone] * Interferon gamma antigen 2 (10/31/2024 1:39 PM EDT) Blood Venous blood specimen / Unknown Venipuncture / Unknown 10/31/2024 1:39 PM EDT 10/31/2024 1:39 PM EDT us Latesha France MD LAB BLOOD ORDERABLES Final Result Performing Organization Address [facility]/ZIP Co de Phone Number [facility] [address] [place] [address], [place] [phone] * Interferon gamma antigen 1 (10/31/2024 1:39 PM EDT) Blood Venous blood specimen / Unknown Venipuncture / Unknown 10/31/2024 1:39 PM EDT 10/31/2024 1:39 PM EDT us Latesha France MD LAB BLOOD ORDERABLES Final Result Performing Organization Address [facility]/ZIP Co de Phone Number [facility] [address] [place] [address], [place] [phone] * Interferon gamma mitogen (10/31/2024 1:39 PM EDT) Blood Venous blood specimen / Unknown Venipuncture / Unknown 10/31/2024 1:39 PM EDT 10/31/2024 1:39 PM EDT us Latesha France MD LAB BLOOD ORDERABLES Final Result Performing Organization Address [facility] de Phone Number [facility] [address] [place] [address], [place] [phone] * Interferon gamma NIL (10/31/2024 1:39 PM EDT) Blood Venous blood specimen / Unknown Venipuncture / Unknown 10/31/2024 1:39 PM EDT 10/31/2024 1:39 PM EDT us Latesha France MD LAB BLOOD ORDERABLES Final Result Performing Organization Address [facility] de Phone Number [facility] [address] [place] [address], [place] [phone] * Myositis panel 3 (10/31/2024 1:39 PM [...] approved by the Food and Drug Administration. KY-2 Ab Negative Negative 11/16/2024 1:10 PM EDT [...] approved by the Food and Drug Administration. Anti-U1-CLINICAL ACCOUNT MANAGER Ab <20 <20 Units 11/16/2024 1:10 PM [...] the Food and Drug Administration. Fibrillarin (U3 CLINICAL ACCOUNT MANAGER) Ab Negative Negative 11/16/2024 1:10 PM EDT [facility] Comment: This test was developed and its performance characteristics determined by [facility]. It has not been cleared or approved by the Food and Drug Administration. Interpretation for Anti-Dottie-1, Abvr-EPO-1amows, Anti-MDA-5, Anti-NXP-2, Anti-PM/Scl-100, Anti-SS-A 52 kD, Anti-U1 CLINICAL ACCOUNT MANAGER: Negative: <20 Weak Positive: 20 - 39 Moderate Positive: 40 - 80 Strong Positive: >80 . Test Performed by: [facility] [address] [place] [address] Blood Venous blood specimen / Unknown Venipuncture / Unknown 10/31/2024 1:39 PM EDT 10/31/2024 1:39 PM EDT us Latesha France MD LAB BLOOD ORDERABLES Final Result [facility] [address] [place] [address] * (ABNORMAL) Vitamin D 25 hydroxy (10/31/2024 1:39 PM EDT) Vit D, 25-Hydroxy 25.0(L) 30.0 - 80.0 ng/mL LAB CHEMISTRY METHOD 10/31/2024 5:29 PM [facility] Blood Venous blood specimen / Unknown Venipuncture / Unknown 10/31/2024 1:39 PM EDT 10/31/2024 1:39 PM EDT us Latesha France MD LAB BLOOD ORDERABLES Final Result [facility] [address] [place] [address], [place] [phone] * Basic metabolic panel (10/31/2024 1:39 PM EDT) Sodium 136 133 - 145 mmol/L LAB CHEMISTRY METHOD 10/31/2024 4:33 PM [facility] Potassium 4.6 3.5 - 5.5 mmol/L LAB CHEMISTRY METHOD 10/31/2024 4:33 PM [facility] Chloride 103 96 - 110 mmol/L LAB CHEMISTRY METHOD 10/31/2024 4:33 PM [facility] CO2 29 21 - 32 mmol/L LAB CHEMISTRY METHOD 10/31/2024 4:33 PM [facility] Anion Gap 4 3 - 11 LAB CHEMISTRY METHOD 10/31/2024 4:33 PM [facility] Glucose 76 70 - 100 mg/dL LAB CHEMISTRY METHOD 10/31/2024 4:33 PM [facility] BUN 10 5 - 25 mg/dL LAB CHEMISTRY METHOD 10/31/2024 4:33 PM [facility] Creatinine 0.65 0.50 - 1.10 mg/dL LAB CHEMISTRY METHOD 10/31/2024 4:33 PM [facility] eGFR 127 >=60 mL/min/1. 73m2 LAB CHEMISTRY METHOD 10/31/2024 4:33 PM [facility] Comment:Calculation based on the Chronic Kidney Disease Epidemiology Collaboration (CKD-EPI) equation refit without adjustment for race. BUN/Creatinine Ratio 15.4 LAB CHEMISTRY METHOD 10/31/2024 4:33 PM EDT [facility] Calcium 9.7 8.5 - 10.5 mg/dL LAB CHEMISTRY METHOD 10/31/2024 4:33 PM EDT [facility] Blood Venous blood specimen / Unknown Venipuncture / Unknown 10/31/2024 1:39 PM EDT 10/31/2024 1:39 PM EDT Latesha France MD LAB BLOOD ORDERABLES Final Result Performing Organization Address City/[facility]/ZIP Co de Phone Number [facility] [address] [place] [address], [place] [phone] * Sjogrens antibodies, SSA and SSB (10/17/2024 12:22 PM EDT) Sjogren's SS-A (Ro) Ab Quant 1 <20 units LAB CHEMISTRY METHOD 10/21/2024 10:18 AM EDT [facility] Sjogren's SS-A (Ro) Ab Negative Negative LAB CHEMISTRY METHOD 10/21/2024 10:18 AM EDT [facility] Sjogren's SS-B (La) Ab Quant 2 <20 units LAB CHEMISTRY METHOD 10/21/2024 10:18 AM EDT [facility] Sjogren's SS-B (La) Ab Negative Negative LAB CHEMISTRY METHOD 10/21/2024 10:18 AM EDT [facility] Blood Venous blood specimen / Unknown Venipuncture / Unknown 10/17/2024 12:22 PM EDT 10/17/2024 12:22 PM EDT us Latesha France MD LAB BLOOD ORDERABLES Final Result [facility] [address] [place] [address], [place] [phone] * Myocardial antibody IgG, reflex to titer (10/17/2024 12:22 PM EDT) [facility] Myocardial Antibody Screen, IFA NEGATIVE NEGATIVE 10/25/2024 1:40 AM EDT [facility] Comment: This test was developed and its analytical performance characteristics have been determined by [facility]. It has not been cleared or approved by the FDA. This assay has been validated pursuant to the CLIA regulations and is used for clinical purposes. Myocardial Antibody Titer TNP 10/25/2024 1:40 AM EDT [facility] Comment: Test Not Performed. Screening test Negative or Not Detected. Titer not performed. Test Performed at: [facility] [address] [address] Melba Anna MD, PhD, AZIZA Comment added after verification. Original result, verified by I/AUT at 01:40 on 10/25/2024 Blood Venous blood specimen / Unknown Venipuncture / Unknown 10/17/2024 12:22 PM EDT 10/17/2024 12:22 PM EDT Latesha France MD LAB BLOOD ORDERABLES Edited Result - Final [facility] [address] [place] [address] * Thyroid peroxidase antibody (10/17/2024 12:22 PM EDT) [facility] Thyroid Peroxidase Ab 60.0 <=60.0 I Unit/mL LAB CHEMISTRY METHOD 10/17/2024 4:26 PM EDT [facility] Blood Venous blood specimen / Unknown Venipuncture / Unknown 10/17/2024 12:22 PM EDT 10/17/2024 12:22 PM EDT Latesha France MD LAB BLOOD ORDERABLES Final Result [facility] [address] [place] [address], [place] [phone] * Iron and TIBC (10/17/2024 12:22 PM EDT) Only the most recent of2 resultswithin the time period is included. Iron 128 40 - 150 mcg/dL LAB CHEMISTRY METHOD 10/17/2024 3:07 PM EDT [facility] TIBC 365 250 - 450 mcg/dL LAB CHEMISTRY METHOD 10/17/2024 3:07 PM EDT [facility] Iron Saturation 35 15 - 50 % LAB CHEMISTRY METHOD 10/17/2024 3:07 PM EDT [facility] Blood Venous blood specimen / Unknown Venipuncture / Unknown 10/17/2024 12:22 PM EDT 10/17/2024 12:22 PM EDT Latesha France MD LAB BLOOD ORDERABLES Final Result [facility] [address] [place] [address], [place] [phone] * Smooth muscle antibody IgG (10/17/2024 12:22 PM EDT) Pathologist [facility] Smooth Muscle (F-Actin) IgG Ab 5 <20 UNITS 10/22/2024 2:00 PM EDT [facility] Comment: Interpretation: Negative Test performed at [facility], [address], [place] [address] Darcy Parker MD, PhD - Associate Field Service Engineer Blood Venous blood specimen / Unknown Venipuncture / Unknown 10/17/2024 12:22 PM EDT 10/17/2024 12:22 PM EDT Latesha France MD LAB BLOOD ORDERABLES Final Result [facility] [address] [place] [address] * Anti-scleroderma antibody (10/17/2024 12:22 PM EDT) Scleroderma SCL - 70 Negative Negative LAB CHEMISTRY METHOD 10/21/2024 10:18 AM EDT [facility] Blood Venous blood specimen / Unknown Venipuncture / Unknown 10/17/2024 12:22 PM EDT 10/17/2024 12:22 PM EDT Latesha France MD LAB BLOOD ORDERABLES Final Result [facility] [address] [place] [address], [place] [phone] * DNA antibody, double-stranded (10/17/2024 12:22 PM EDT) Pathologist [facility] Anti-DNA Double Stranded Antibody Negative Negative LAB CHEMISTRY METHOD 10/21/2024 10:17 AM EDT [facility] ds DNA Ab 31 <=200 I Unit/mL LAB CHEMISTRY METHOD 10/21/2024 10:17 AM EDT [facility] Blood Venous blood specimen / Unknown Venipuncture / Unknown 10/17/2024 12:22 PM EDT 10/17/2024 12:22 PM EDT Latesha France MD LAB BLOOD ORDERABLES Final Result [facility] [address] [place] [address], [place] [phone] * Anti-parietal antibody (10/17/2024 12:22 PM EDT) Pathologist [facility] Gastric Parietal Cell Ab 1.4 <=20 UNITS 10/26/2024 1:27 PM EDT [facility] Comment: Interpretation: Negative Test performed at [facility], [address], [place] [address] Darcy Parker MD, PhD - Associate Field Service Engineer Blood Venous blood specimen / Unknown Venipuncture / Unknown 10/17/2024 12:22 PM EDT 10/17/2024 12:22 PM EDT Latesha France MD LAB BLOOD ORDERABLES Final Result [facility] [address] [place] [address] * Antimitochondrial antibody (10/17/2024 12:22 PM EDT) Mitochondrial Antibody Quantitative 13.7 <=20.0 units LAB CHEMISTRY METHOD 10/24/2024 11:29 AM EDT [facility] Mitochondrial Antibody Qualitative Negative Negative LAB CHEMISTRY METHOD 10/24/2024 11:29 AM EDT [facility] Blood Venous blood specimen / Unknown Venipuncture / Unknown 10/17/2024 12:22 PM EDT 10/17/2024 12:22 PM EDT Latesha France MD LAB BLOOD ORDERABLES Final Result Performing Organization Address [facility] de Phone Number [facility] [address] [place] [address], [place] [phone] * Rheumatoid factor (10/17/2024 12:22 PM EDT) Rheumatoid Factor <10.0 <15.0 I Unit/mL LAB CHEMISTRY METHOD 10/17/2024 3:07 PM EDT [facility] Blood Venous blood specimen / Unknown Venipuncture / Unknown 10/17/2024 12:22 PM EDT 10/17/2024 12:22 PM EDT Latesha France MD LAB BLOOD ORDERABLES Final Result [facility] [address] [place] [address], [place] [phone] * C3 complement (10/17/2024 12:22 PM EDT) [facility] C3 Complement 127 88 - 201 mg/dL LAB CHEMISTRY METHOD 10/17/2024 3:07 PM EDT [facility] Blood Venous blood specimen / Unknown Venipuncture / Unknown 10/17/2024 12:22 PM EDT 10/17/2024 12:22 PM EDT Latesha France MD LAB BLOOD ORDERABLES Final Result [facility] [address] [place] [address], [place] [phone] * C4 complement (10/17/2024 12:22 PM EDT) [facility] C4 Complement 30 16 - 47 mg/dL LAB CHEMISTRY METHOD 10/17/2024 3:07 PM EDT [facility] Blood Venous blood specimen / Unknown Venipuncture / Unknown 10/17/2024 12:22 PM EDT 10/17/2024 12:22 PM EDT Latesha France MD LAB BLOOD ORDERABLES Final Result [facility] [address] [place] [address], [place] [phone] * Thyroid stimulating hormone with reflex to free t4 and free t3 (10/02/2024 2:28 PM EDT) [facility] TSH 1.35 0.40 - 4.00 mcIU/mL LAB CHEMISTRY METHOD 10/02/2024 7:20 PM EDT [facility] Blood Venous blood specimen / Unknown Venipuncture / Unknown 10/02/2024 2:28 PM EDT 10/02/2024 2:29 PM EDT us Latesha France MD LAB BLOOD ORDERABLES Final Result [facility] [address] [place] [address], [place] [phone] * CBC auto differential (10/02/2024 2:28 PM EDT) WBC 6.2 4.8 - 10.8 K/mcL LAB HEMETOLOGY METHOD 10/02/2024 5:06 PM EDT [facility] RBC 4.40 3.80 - 4.80 M/mcL LAB HEMETOLOGY METHOD 10/02/2024 5:06 PM EDT [facility] Hemoglobin 12.7 11.5 - 16.0 g/dL LAB HEMETOLOGY METHOD 10/02/2024 5:06 PM EDT [facility] Hematocrit 38.1 35.0 - 47.0 % LAB HEMETOLOGY METHOD 10/02/2024 5:06 PM EDT [facility] MCV 87.4 79.0 - 98.0 FL LAB HEMETOLOGY METHOD 10/02/2024 5:06 PM EDT [facility] MCH 29.1 27.0 - 32.0 pcg LAB HEMETOLOGY METHOD 10/02/2024 5:06 PM EDT [facility] MCHC 33.3 32.0 - 37.0 g/dL LAB HEMETOLOGY METHOD 10/02/2024 5:06 PM EDT [facility] RDW 12.2 11.0 - 15.0 % LAB HEMETOLOGY METHOD 10/02/2024 5:06 PM EDT [facility] Platelets 311 130 - 400 K/mcL LAB HEMETOLOGY METHOD 10/02/2024 5:06 PM EDT [facility] MPV 10.6 7.0 - 11.0 FL LAB HEMETOLOGY METHOD 10/02/2024 5:06 PM [facility] NRBC 0.0 <1.0 % LAB HEMETOLOGY METHOD 10/02/2024 5:06 PM [facility] NRBC Absolute 0.00 <0.10 K/mcL LAB HEMETOLOGY METHOD 10/02/2024 5:06 PM [facility] Neutrophils Relative 53.7 % LAB HEMETOLOGY METHOD 10/02/2024 5:06 PM [facility] Lymphocytes Relative 34.2 % LAB HEMETOLOGY METHOD 10/02/2024 5:06 PM [facility] Monocytes Relative 6.4 % LAB HEMETOLOGY METHOD 10/02/2024 5:06 PM [facility] Eosinophils Relative 4.8 % LAB HEMETOLOGY METHOD 10/02/2024 5:06 PM [facility] Basophils Relative 0.6 % LAB HEMETOLOGY METHOD 10/02/2024 5:06 PM [facility] Immature Granulocytes Relative 0.3 % LAB HEMETOLOGY METHOD 10/02/2024 5:06 PM [facility] Neutrophils Absolute 3.33 1.50 - 7.00 K/mcL LAB HEMETOLOGY METHOD 10/02/2024 5:06 PM [facility] Lymphocytes Absolute 2.13 1.00 - 5.00 K/mcL LAB HEMETOLOGY METHOD 10/02/2024 5:06 PM [facility] Monocytes Absolute 0.40 0.20 - 1.00 K/mcL LAB HEMETOLOGY METHOD 10/02/2024 5:06 PM [facility] Eosinophils Absolute 0.30 0.00 - 0.50 K/mcL LAB HEMETOLOGY METHOD 10/02/2024 5:06 PM [facility] Basophils Absolute 0.04 0.00 - 0.20 K/[facility] LAB HEMETOLOGY METHOD 10/02/2024 5:06 PM EDT [facility] Immature Granulocytes Absolute 0.02 0.00 - 0.03 K/[facility] LAB HEMETOLOGY METHOD 10/02/2024 5:06 PM EDT [facility] Blood Venous blood specimen / Unknown Venipuncture / Unknown 10/02/2024 2:28 PM EDT 10/02/2024 2:29 PM EDT Latesha France MD LAB BLOOD ORDERABLES Final Result Performing Organization Address City/[facility]/ZIP Co de Phone Number [facility] [address] [place] [address], [place] [phone] * Creatine kinase (10/02/2024 2:28 PM EDT) Pathologist [facility] Total CK 59 22 - 269 unit/L LAB CHEMISTRY METHOD 10/02/2024 8:29 PM EDT [facility] Blood Venous blood specimen / Unknown Venipuncture / Unknown 10/02/2024 2:28 PM EDT 10/02/2024 2:29 PM EDT Latesha France MD LAB BLOOD ORDERABLES Final Result Performing Organization Address City/[facility]/ZIP Co de Phone Number [facility] [address] [place] [address], [place] [phone] * (ABNORMAL) Comprehensive metabolic panel (10/02/2024 2:28 PM EDT) Sodium 136 133 - 145 mmol/L LAB CHEMISTRY METHOD 10/02/2024 8:29 PM EDT [facility] Potassium 4.4 3.5 - 5.5 mmol/L LAB CHEMISTRY METHOD 10/02/2024 8:29 PM EDT [facility] Chloride 104 96 - 110 mmol/L LAB CHEMISTRY METHOD 10/02/2024 8:29 PM [facility] CO2 26 21 - 32 mmol/L LAB CHEMISTRY METHOD 10/02/2024 8:29 PM [facility] Anion Gap 6 3 - 11 LAB CHEMISTRY METHOD 10/02/2024 8:29 PM [facility] Glucose 90 70 - 100 mg/dL LAB CHEMISTRY METHOD 10/02/2024 8:29 PM [facility] BUN 9 5 - 25 mg/dL LAB CHEMISTRY METHOD 10/02/2024 8:29 PM [facility] Creatinine 0.67 0.50 - 1.10 mg/dL LAB CHEMISTRY METHOD 10/02/2024 8:29 PM [facility] eGFR 126 >=60 mL/min/1. 73m2 LAB CHEMISTRY METHOD 10/02/2024 8:29 PM [facility] Comment:Calculation based on the Chronic Kidney Disease Epidemiology Collaboration (CKD-EPI) equation refit without adjustment for race. BUN/Creatinine Ratio 13.4 LAB CHEMISTRY METHOD 10/02/2024 8:29 PM [facility] Calcium 10.1 8.5 - 10.5 mg/dL LAB CHEMISTRY METHOD 10/02/2024 8:29 PM [facility] AST (SGOT) 6(L) 10 - 42 unit/L LAB CHEMISTRY METHOD 10/02/2024 8:29 PM [facility] ALT (SGPT) 18 10 - 60 unit/L LAB CHEMISTRY METHOD 10/02/2024 8:29 PM [facility] Alkaline Phosphatase 54 42 - 121 unit/L LAB CHEMISTRY METHOD 10/02/2024 8:29 PM [facility] Total Protein 8.0 6.0 - 8.0 g/dL LAB CHEMISTRY METHOD 10/02/2024 8:29 PM [facility] Albumin 4.7 3.2 - 5.0 g/dL LAB CHEMISTRY METHOD 10/02/2024 8:29 PM EDT [facility] Total Bilirubin 0.3 0.0 - 1.4 mg/dL LAB CHEMISTRY METHOD 10/02/2024 8:29 PM EDT [facility] Blood Venous blood specimen / Unknown Venipuncture / Unknown 10/02/2024 2:28 PM EDT 10/02/2024 2:29 PM EDT us Latesha France MD LAB BLOOD ORDERABLES Final Result [facility] [address] [place] [address], * Exercise stress test (09/12/2024 1:42 PM [...] the stress ECG was negative for ischemia. us Yamilex Eagle NP CV STRESS PROCEDURES Final Res ult * Lipid panel with reflex to direct LDL (07/19/2024 1:38 PM EDT) Cholesterol 142 0 - 200 mg/dL LAB CHEMISTRY METHOD 07/19/2024 5:47 PM [facility] Triglycerides 54 0 - 150 mg/dL LAB CHEMISTRY METHOD 07/19/2024 5:47 PM [facility] HDL 63 >=40 mg/dL LAB CHEMISTRY METHOD 07/19/2024 5:47 PM [facility] LDL Calculated 68 0 - 100 mg/dL LAB CHEMISTRY METHOD 07/19/2024 5:47 PM [facility] VLDL Cholesterol Nahid 10.8 mg/dL LAB CHEMISTRY METHOD 07/19/2024 5:47 PM [facility] Non HDL Chol. (LDL+VLDL) 79 <145 mg/dL LAB CHEMISTRY METHOD 07/19/2024 5:47 PM [facility] Chol/HDL Ratio 2.3 0.0 - 4.4 LAB CHEMISTRY METHOD 07/19/2024 5:47 PM [facility] Blood Venous blood specimen / Unknown Venipuncture / Unknown 07/19/2024 1:38 PM EDT 07/19/2024 1:38 PM EDT Latesha France MD LAB BLOOD ORDERABLES Final Result [facility] [address] [place] [address], [place] [phone] * Chlamydia trachomatis and Neisseria gonorrhoeae molecular study (04/30/2024 10:52 AM EST) [facility] Neisseria gonorrhoeae PCR Negative Negative LAB MOLECULAR DIAGNOSTICS METHOD 05/01/2024 7:20 AM EST [facility] Chlamydia trachomatis PCR Negative Negative LAB MOLECULAR DIAGNOSTICS METHOD 05/01/2024 7:20 AM EST [facility] Swab Cervix uteri structure / Unknown Non-blood Collection / Unknown 04/30/2024 10:52 AM EST 04/30/2024 10:53 AM EST Sally Kinney CNM LAB MICROBIOLOGY - GENERAL ORDE RABLES Final Result [facility] [address] [place] [address], [place] [phone] * Cervical Cancer Screening: HPV (08/30/2023) [facility] Cervical Cancer Screening: HPV abstracted; no interpretation Erin Valerio MD HEALTH MAINTENANCE Final Result * Depression Screening (07/29/2023) [facility] Depression Screening abstracted Erin Valerio MD HEALTH MAINTENANCE Final Result from Last 3 Months or Most Recently Relevant to Health Maintenance Insurance [facility] Care Teams Cake Inspector Relationship Specialty Start Date End Date Latesha France MD [address] [place] [id number] PCP - General Internal Medicine 02/13/24
--- OUTSIDE RECORDS SUMMARY | 2024-12-03 15:54 | XMS_ITS | Encounter Summary ---
Author Organization [facility] Address [address] [place] [address] Care Team Providers Care Supervisor Ride Assembly Name Role Phone Latesha France MD Primary Care Provider [phone]- [phone] Reason for Visit * Reason Onset Date Comments Abdominal Pain 04/25/2024 Diarrhea 04/25/2024 Encounter Details Date Type Department Care Team (Late st Contact Info) Description 04/25/2024 Nurse Triage Adult Medicine [address] [phone] Latesha France MD [address] [place] [phone] Social History Tobacco Use Types Packs/Day Years [...] traveled recently to another state outside of [place], [place], [place], [place], [place], [place], [place]? no o If yes, did you [...] not applicable PCP: Latesha France MD Payor: [employer] HEALTH PLAN / [facility] / Product Type: *No Product type* / documented in this encounter Plan of Treatment Upcoming Encounters Date Type Department Care Team (Late st Contact Info) Description 12/17/2024 2:30 PM EDT Office Visit Obstetrics and Gynecology [address] [phone] Sally Kinney CNM [address] [place] [address] 12/19/2024 3:10 PM EDT Office Visit [facility] Center [address] [place] [phone] Yamilex Eagle, LEANA [address] [facility] [address] [place] [address] 12/31/2024 3:00 PM EDT Evaluation [facility] - [place] [address] [facility] [address] [place] [address] Clara Rizzo, PT 02/04/2025 1:00 PM EST Clinical Support Obstetrics and Gynecology - [address] [phone] 03/22/2025 3:00 PM EST Office Visit Adult Medicine [place] - [address] [phone] Latesha France MD [address] [place] [address] documented as of this encounter Visit Diagnoses Not on filedocumented in this encounter Additional Health Concerns Infection Onset Date Last Indicated Resolved Time Respiratory Rule-Out 05/22/2024 05/22/2024 025 7:00 PM EST C. difficile Rule-Out 05/23/2024 05/22/20242024 4:54 PM EST documented as of this encounter Care Teams Supervisor Ride Assembly Relationship Specialty Start Date End Date Latesha France MD [address] [place] [address] PCP - General Internal Medicine 02/13/24 documented as of this encounter
--- OUTSIDE RECORDS SUMMARY | 2024-12-03 15:54 | XMS_ITS | Encounter Summary ---
Author Organization [facility] Address [address] [place] [address] Care Team Providers Care Geography Department Chair Name Role Phone Latesha France MD Primary Care Provider Reason for Visit * Reason Onset Date Comments Hypotension 03/19/2024 Encounter Details Date Type Department Care Team (Late st Contact Info) Description 03/19/2024 Nurse Triage Adult Medicine [address] [phone] Latesha France MD [address] [place] [phone] Social History Tobacco Use Types Packs/Day Years [...] recently to another state outside of [place], [place], [place], [place], [place], [place], [place]? no o If yes, did you [...] yes, gather 3rd libertarian insurance information Third Constitution Party Information: not applicable PCP: Latesha France MD Payor: [employer] PLAN / Plan: [employer] MEDICAID / Product Type: *No Product type* / documented in this encounter Plan of Treatment Upcoming Encounters Date Type Department Care Team (Late st Contact Info) Description 12/17/2024 2:30 PM EDT Office Visit Obstetrics and Gynecology - [address] [phone] Sally Kinney CN [address] [place] [address] 12/19/2024 3:10 PM EDT Office Visit [facility] - [facility] [address] [place] [phone] Yamilex Eagle NP [address] [place] [address] Dr [address] [place] [phone] 12/31/2024 3:00 PM EDT Evaluation [facility] - [place] [address] [facility] [address] [facility] [address] [place] [phone] Clara Rizzo, PT 02/04/2025 1:00 PM EST Clinical Support Obstetrics and Gynecology - [place] [address] [place] [address] 03/22/2025 3:00 PM EST Office Visit Adult Medicine [facility] [address] [place], [place] [address], [place] [phone] Latesha France MD 444 [facility] [place] documented as of this encounter Visit Diagnoses Not on filedocumented in this encounter Additional Health Concerns Infection Onset Date Last Indicated Resolved Time Respiratory Rule-Out 05/22/2024 05/22/2024 025 7:00 PM EST C. difficile Rule-Out 05/23/2024 05/22/20242024 4:54 PM EST documented as of this encounter Care Teams Geography Department Chair Relationship Specialty Start Date End Date Latesha France MD [address] [place] [address] [place] [address] PCP - General Internal Medicine 02/13/24 documented as of this encounter
--- OUTSIDE RECORDS SUMMARY | 2024-12-03 15:54 | XMS_ITS | Encounter Summary ---
Author Organization [facility] Address [address] [place] [address] Care Team Providers Care Oil And Gas Exploration Technician Name Role Phone Latesha France MD Primary Care Provider [phone]- [phone] Reason for Visit * Reason Onset Date Comments Med Refill 01/25/2024 Disregard put in to system in [facility] Encounter Details Date Type Department Care Team (Late Contact Info) Description 01/25/2024 Telephone Adult Medicine [place] - [address] [phone] Latesha France MD [address] [place] [phone] Social History Tobacco Use Types Packs/Day Years [...] Upcoming Encounters Date Type Department Care Team ([facility] Contact Info) Description 12/17/2024 2:30 PM EDT Office Visit Obstetrics and Gynecology - [address] [phone] Sally Kinney, CHIARA [address] [place], [place] 12/19/2024 3:10 PM EDT Office Visit [facility] - [facility] [address] [place] [address] Yamilex Eagle, LEANA [address] [place] [address] Dr [address] [place] [address] 12/31/2024 3:00 PM EDT Evaluation [facility] Rehabilitation - [address] [phone] Clara Rizzo, PT 02/04/2025 1:00 PM EST Clinical Support Obstetrics and Gynecology - [address] [phone] 03/22/2025 3:00 PM EST Office Visit Adult Medicine [address] [phone] Latesha France MD [address] [place], [place] documented as of this encounter Visit Diagnoses Not on filedocumented in this encounter Additional Health Concerns Infection Onset Date Last Indicated Resolved Time Respiratory Rule-Out 05/22/2024 05/22/2024 025 7:00 PM EST C. difficile Rule-Out 05/23/2024 05/22/20242024 4:54 PM EST documented as of this encounter Care Teams Oil And Gas Exploration Technician Relationship Specialty Start Date End Date Latesha France MD [address] [place] [address] PCP - General Internal Medicine 02/13/24 documented as of this encounter
--- OUTSIDE RECORDS SUMMARY | 2024-12-03 15:54 | XMS_ITS | Encounter Summary ---
Author Organization [facility] Address [address] [place] [address] Care Team Providers Care Scuba Diving Instructor Name Role Phone Latesha France MD Primary Care Provider [phone]- [phone] Encounter Details Date Type Department Care Team (Late st Contact Info) Description 07/24/2024 Nurse Triage Adult Medicine [address] [phone] Latesha France MD [address] [place] [address] Social History Tobacco Use Types Packs/Day Years [...] Office Visit Obstetrics and Gynecology - [address] [phone] Sally Kinney CNM [address] [place] [address] 12/19/2024 3:10 PM EDT Office Visit [facility] - [facility] [address] [place] [address] Yamilex Eagle NP [address] [place] [address] Dr Romero [address] [place] [phone] 12/31/2024 3:00 PM EDT Evaluation [facility] - [place] [address] [facility] [address] [place] [phone] Clara Rizzo, PT 02/04/2025 1:00 PM EST Clinical Support Obstetrics and Gynecology - [address] [phone] 03/22/2025 3:00 PM EST Office Visit Adult Medicine [place] - [address] [phone] Latesha France MD [address] [place] [address] documented as of this encounter Visit Diagnoses Not on filedocumented in this encounter Care Teams Scuba Diving Instructor Relationship Specialty Start Date End Date Latesha France MD [address] [place] [address] PCP - General Internal Medicine 02/13/24 documented as of this encounter
== END 2024-12-03 14:49 | disposition home or self-care (01) ==
LOC: HO.HSM 13:42
PROVIDERS: PCP Internal Medicine; Visit Provider Registered Nurse
DX: F45.0 Somatization disorder (principal); G43.009 Migraine without aura, not intractable, without status migrainosus; G47.9 Sleep disorder, unspecified
CPT/HCPCS: 99214

== ENCOUNTER → 2024-12-03 13:41 | Outpatient (BNVA) | payer OTHER, SELFPAY | PROVIDERS: PCP Internal Medicine; Visit Provider Registered Nurse | DX: F45.0 Somatization disorder (principal); G43.009 Migraine without aura, not intractable, without status migrainosus; G47.9 Sleep disorder, unspecified; Z79.899 Other long term (current) drug therapy | CPT/HCPCS: 99212 ==

== ENCOUNTER 2025-01-17 14:06 | Outpatient (REF) | payer OTHER, SELFPAY ==
--- OUTSIDE RECORDS SUMMARY | 2025-01-17 18:01 | XMS_ITS | Encounter Summary ---
Author Organization [facility] Address [address] [place] [address] Care Team Providers Care Personnel Clerk Name Role Phone Latesha France MD Primary Care Provider Reason for Visit * Reason Onset Date Comments Dizziness 01/10/2025 Nausea 01/10/2025 Abdominal Pain 01/10/2025 Encounter Details Date Type Department Care Team (Late st Contact Info) Description 01/10/2025 Telephone Adult Medicine [facility] [address] [place] [address] Latesha France MD [address] [place] [address] Social History Tobacco Use Types Packs/Day Years [...] as of this encounter Progress Notes * Trudi Landaverde RN - 01/10/2025 10:58 AM EDT Fyi to pcp Call to pt. Spoke to pt She is taking a muscle relaxant med for past 4 days today day 5 She has noticed the med makes her feel dizzy, and some weakness Her bp has dropped, it was on 01/07/ 4pm 92/47 p71 She feels Med not helping, after eating she feels nauseated Med: Baclofen 10 mg 1.5 mg, three times a day Was seen by Sebastián at [facility] she eulogio call them and let the provider know how she is feelingwith this med that was prescribed for the pain. Pt taking vit D,3 left w/I normal limits to continue at this time. Message can wait for provider to return * Diana Chapa - 01/10/2025 10:43 AM EDT Patient call requires triage: Symptoms patient is presenting: c/o dizziness, abdominal pain and nausea How long has patient had these symptoms?: 4 days For ALL patients calling to schedule [...] traveled recently to another state outside of [place], [place], [place], [place], [place], [place], [place]? no o If yes, did you quarantine [...] not applicable PCP: Latesha France MD Payor: [facility] [employer] PLAN / Plan: [facility] MEDICAID / Product Type: *No Product type* / documented in this encounter Plan of Treatment Upcoming Encounters Date Type Department Care Team (Late st Contact Info) Description 01/22/2025 3:00 PM EDT Treatment [address] [phone] Holden Toribio, PRODUCT TEST SPECIALIST 01/23/2025 4:00 PM EDT Appointment Radiology Department - [address] [phone] 01/29/2025 3:30 PM EST Treatment [address] [address] Breana Quintanilla, PT 02/04/2025 1:00 PM EST Clinical Support Obstetrics and Gynecology - [address] [phone] 02/05/2025 3:00 PM EST Treatment [address] [address] Holden Toribio, PRODUCT TEST SPECIALIST 02/12/2025 3:00 PM EST Treatment [address] [address] Holden Toribio, PRODUCT TEST SPECIALIST 02/19/2025 4:00 PM EST Treatment [address] [phone] Breana Quintanilla, PT 02/26/2025 4:30 PM EST Treatment [address] [address] Breana Quintanilla, PT 03/22/2025 3:00 PM EST Office Visit Adult Medicine [place] - [address] [phone] Latesha France MD [address] [place] [address] 06/13/2025 2:30 PM EDT Office Visit Pul[facility]ology - [place] [facility] 175 [facility] [address] [place] [phone] Jennifer Kaufman MD 175 [facility] 200 [place] [address] documented as of this encounter Goals Goal Patient Goal Type Associated Problems Recent Progress Patient-Stated? Author PT LTG - 6 visits General No Bridgett Lockwood PT Note: Patient reports subjective decrease in back pain Patient is able to complete 6 min walk test Slight flexibility restriction to bilateral QL Patient is able to achieve 100% lumbar flexion and extension without deviations Patient is independent and compliant with HEP documented as of this encounter Visit Diagnoses Not on filedocumented in this encounter Care Teams Personnel Clerk Relationship Specialty Start Date End Date Latesha France MD [address] [place] [address] PCP - General Internal Medicine 02/13/24 documented as of this encounter
--- OUTSIDE RECORDS SUMMARY | 2025-01-17 18:01 | XMS_ITS | Encounter Summary ---
Author Organization [facility] Address [address] [place] [address] Care Team Providers Care Plaster Machine Operator Name Role Phone Latesha France MD Primary Care Provider Reason for Visit * Reason Onset Date Comments Passing Out 01/11/2025 Encounter Details Date Type Department Care Team ([facility] Contact Info) Description 01/11/2025 Telephone [facility] Cardiology [facility] [address] [place] [address] [place] [phone] Maria Eugenia Mccartney MD [address] [place] [address] Dr Romero [address] [place] [phone] Social History Tobacco Use Types Packs/Day Years [...] Progress Notes * Demi Martin RN - 01/16/2025 11:22 AM EDT Spoke to the patient and she is agreeable to see EP. [place], please schedule the patient for a consult with EP Dr. Bond or Dr. Renee for consideration of ILR. Thank you! * Yamilex Eagle NP - 01/16/2025 11:20 AM EDT Yes please!! * Demi Martin RN - 01/16/2025 11:18 AM EDT Would you like the patient to be scheduled with Dr. Bond or Dr. Renee to discuss possible ILR placement? * Yamilex Eagle NP - 01/11/2025 11:49 AM EDT Agree with recs, follow up neurology. Could consider EP follow up for ILR, although was previously monitored for 30 days and these syncopal events occurred- no correlating arrhythmias-- thoughts Dr. Mccartney? She has had a full neg cardiac woke up so far. * Demi Martin RN - 01/11/2025 11:08 AM EDT Gabrielle Forrester is a 24 y.o. female, followed by Dr. Mccartney/ LAN Yamilex Eagle with a history of syncope, migraines, seizure-like activity and PTSD. She was last seen in the office on 12/19/24. I spoke to Gabrielle who reported a syncopal episode around 9:35 PM last night while sitting. Her legs became numb, her partner laid her down, then she woke up around 9:38 PM feeling central chest tightness for 2-3 minutes. Her BP and HR were checked around 10:40 PM yesterday- BP 101/47, HR 86 bpm. She also had a syncopal episode on 01/03/25 while sitting and was passed out for 15 minutes. Gabrielle reported she is staying hydrated, eating small meals throughout the day, and consuming salt. She started taking Baclofen 10 mg TID on 01/06/25. She called her Neurology office today and waiting for a call back. I advised the patient to go to the ER with recurring, prolonged syncopal episodes. Please advise. * Kelly Elizabeth - 01/11/2025 10:35 AM EDT Patient called and stated that around 9:35 pm last night, she passed out. She said she couldn't move her legs, and then she passed out. Patient said she woke up around 9:38, and it lasted 3 minutes. She says she feels okay now, but she gets random attacks. She would like a call back at [phone]. documented in this encounter Plan of Treatment Upcoming Encounters Date Type Department Care Team (Late st Contact Info) Description 01/22/2025 3:00 PM EDT Treatment [address] [address] Holden Toribio, WOOL AND PELT GRADER 01/23/2025 4:00 PM EDT Appointment Radiology Department - [address] [phone] 01/29/2025 3:30 PM EST Treatment [address] [address] Breana Quintanilla, PT 02/04/2025 1:00 PM EST Clinical Support Obstetrics and Gynecology - [address] [phone] 02/05/2025 3:00 PM EST Treatment [address] [address] Holden Toribio, WOOL AND PELT GRADER 02/12/2025 3:00 PM EST Treatment [address] [phone] Holden Toribio, WOOL AND PELT GRADER 02/19/2025 4:00 PM EST Treatment [facility] [address] [phone] Breana Quintanilla, PT 02/26/2025 4:30 PM EST Treatment [facility] [address] [address] Breana Quintanilla, PT 03/22/2025 3:00 PM EST Office Visit Adult Medicine [facility] [address] [place] [address] Latesha France MD [address] [place], [place] 06/13/2025 2:30 PM EDT Office Visit Pulmonology [facility] [address] [phone] Jennifer Kaufman MD [address] [address] documented as of this encounter Goals Goal [...] Diagnoses Not on filedocumented in this encounter Historical Medications * This list may reflect changes made after this encounter. baclofen (LIORESAL) 10 mg tablet Take 1 tablet (10 mg total) by mouth 3 (three) times a day. added in this encounter Care Teams Plaster Machine Operator Relationship Specialty Start Date End Date Latesha France MD [address] [place], [place] PCP - General Internal Medicine 02/13/24 documented as of this encounter
--- OUTSIDE RECORDS SUMMARY | 2025-01-17 18:01 | XMS_ITS | Encounter Summary ---
Author Organization [facility] Address [address] [place] [address] Care Team Providers Care Machine Room Operator Name Role Phone Latesha France MD Primary Care Provider Reason for Visit * Reason Onset Date Comments Cough 04/02/2024 Encounter Details Date Type Department Care Team (Late st Contact Info) Description 04/02/2024 Nurse Triage Adult Medicine [address] [phone] Latesha France MD [address] [place] [phone] Social History Tobacco Use Types Packs/Day Years [...] recently to another state outside of [place], [place], [place], [place], [place], [place], [place]? no o If yes, did you quarantine [...] constitution party insurance information Third Libertarian Information: n/a PCP: Latesha France MD Payor: [employer] / Plan: [facility] MEDICAID / Product Type: *No Product type* / documented in this encounter Plan of Treatment Upcoming Encounters Date Type Department Care Team (Late st Contact Info) Description 01/22/2025 3:00 PM EDT Treatment [address] [address] Holden Toribio, LABORER AIRPORT MAINTENANCE 01/23/2025 4:00 PM EDT Appointment Radiology Department - [address] [phone] 01/29/2025 3:30 PM EST Treatment [address] [address] Breana Quintanilla, PT 02/04/2025 1:00 PM EST Clinical Support Obstetrics and Gynecology - [address] [phone] 02/05/2025 3:00 PM EST Treatment [address] [address] Holden Toribio, LABORER AIRPORT MAINTENANCE 02/12/2025 3:00 PM EST Treatment [address] [address] Holden Toribio, LABORER AIRPORT MAINTENANCE 02/19/2025 4:00 PM EST Treatment [address] [address] Breana Quintanilla, PT 02/26/2025 4:30 PM EST Treatment [address] [address] Breana Quintanilla, PT 03/22/2025 3:00 PM EST Office Visit Adult Medicine West - [address] [phone] Latesha France MD [address] [place] [address] 06/13/2025 2:30 PM EDT Office Visit Pulmonology - [place] 175 [facility] [address] [place] [phone] Jennifer Kaufman MD 175 [facility] [address] [place] [address] documented as of this encounter Visit Diagnoses Not on filedocumented in this encounter Additional Health Concerns Infection Onset Date Last Indicated Resolved Time Respiratory Rule-Out 05/22/2024 05/22/2024 025 7:00 PM EST C. difficile Rule-Out 05/23/2024 05/22/20242024 4:54 PM EST documented as of this encounter Care Teams Machine Room Operator Relationship Specialty Start Date End Date Latesha France MD [address] [place] [address] PCP - General Internal Medicine 02/13/24 documented as of this encounter
--- OUTSIDE RECORDS SUMMARY | 2025-01-17 18:01 | XMS_ITS | Encounter Summary ---
Author Organization [facility] Address [address] [place] [address] Care Team Providers Care Child Monitor Name Role Phone Latesha France MD Primary Care Provider +1- [phone] Reason for Visit * Reason Onset Date Comments Med Refill 01/25/2024 Disregard put in to system in older [facility] for refill Encounter Details Date Type Department Care Team (Late Contact Info) Description 01/25/2024 Telephone Adult [facility] [address] [place] [address] Latesha France MD [address] [place] [address] Social History Tobacco Use Types Packs/Day Years [...] Encounters Date Type Department Care Team (Late Contact Info) Description 01/22/2025 3:00 PM EDT Treatment [address] [address] Holden Toribio, INTERNAL AUDIT SENIOR MANAGER 01/23/2025 4:00 PM EDT Appointment Radiology Department - [address] [phone] 01/29/2025 3:30 PM EST Treatment [address] [address] Breana Quintanilla, PT 02/04/2025 1:00 PM EST Clinical Support Obstetrics and Gynecology - [address] [phone] 02/05/2025 3:00 PM EST Treatment [address] [phone] Holden Toribio, INTERNAL AUDIT SENIOR MANAGER 02/12/2025 3:00 PM EST Treatment [address] [address] Holden Toribio, INTERNAL AUDIT SENIOR MANAGER 02/19/2025 4:00 PM EST Treatment [address] [address] Breana Quintanilla, PT 02/26/2025 4:30 PM EST Treatment [address] [address] Breana Quintanilla, PT 03/22/2025 3:00 PM EST Office Visit Adult Medicine West - [address] [phone] Latesha France MD [address] [place] [address] 06/13/2025 2:30 PM EDT Office Visit Pulmonology - [address] [phone] Jennifer Kaufman MD [address] [address] documented as of this encounter Visit Diagnoses Not on filedocumented in this encounter Additional Health Concerns Infection Onset Date Last Indicated Resolved Time Respiratory Rule-Out 05/22/2024 05/22/2024 025 7:00 PM EST C. difficile Rule-Out 05/23/2024 05/22/20242024 4:54 PM EST documented as of this encounter Care Teams Child Monitor Relationship Specialty Start Date End Date Latesha France MD [address] [place] [address] PCP - General Internal Medicine 02/13/24 documented as of this encounter
--- OUTSIDE RECORDS SUMMARY | 2025-01-17 18:01 | XMS_ITS | Encounter Summary ---
Author Organization [facility] Address [address] [place] [address] Care Team Providers Care Acidizer Water Well Name Role Phone Latesha France MD Primary Care Provider Reason for Visit * Reason Onset Date Comments Hypotension 03/19/2024 Encounter Details Date Type Department Care Team (Late st Contact Info) Description 03/19/2024 Nurse Triage Adult Medicine [address] [phone] Latesha France MD [address] [place] [phone] Social History Tobacco Use Types Packs/Day Years [...] recently to another state outside of [place], [place], [place], [place], [place], [place], [place]? no o If yes, did you [...] not applicable PCP: Latesha France MD Payor: [employer] / Plan: [employer] MEDICAID / Product Type: *No Product type* / documented in this encounter Plan of Treatment Upcoming Encounters Date Type Department Care Team (Late st Contact Info) Description 01/22/2025 3:00 PM EDT Treatment [address] [address] Holden Toribio, BOOM STICK MAN 01/23/2025 4:00 PM EDT Appointment Radiology Department - [address] [address] 01/29/2025 3:30 PM EST Treatment [address] [address] Breana Quintanilla, PT 02/04/2025 1:00 PM EST Clinical Support Obstetrics and Gynecology - [address] [phone] 02/05/2025 3:00 PM EST Treatment [address] [address] Holden Toribio, BOOM STICK MAN 02/12/2025 3:00 PM EST Treatment [facility] [address] [address] Holden Toribio, BOOM STICK MAN 02/19/2025 4:00 PM EST Treatment [facility] [address] [address] Breana Quintanilla, PT 02/26/2025 4:30 PM EST Treatment [facility] [address] [address] Breana Quintanilla, PT 03/22/2025 3:00 PM EST Office Visit Adult Medicine [facility] [address] [place] [address] Latesha France MD [address] [place] [address] 06/13/2025 2:30 PM EDT Office Visit Pulmonology - [address] [phone] Jennifer Kaufman MD [address] [address] documented as of this encounter Visit Diagnoses Not on filedocumented in this encounter Additional Health Concerns Infection Onset Date Last Indicated Resolved Time Respiratory Rule-Out 05/22/2024 05/22/2024 025 7:00 PM EST C. difficile Rule-Out 05/23/2024 05/22/20242024 4:54 PM EST documented as of this encounter Care Teams Acidizer Water Well Relationship Specialty Start Date End Date Latesha France MD [address] [place] [address] PCP - General Internal Medicine 02/13/24 documented as of this encounter
--- OUTSIDE RECORDS SUMMARY | 2025-01-17 18:01 | XMS_ITS | Encounter Summary ---
Author Organization [facility] Address [address] [place] [address] Care Team Providers Care Helper Metal Hanging Name Role Phone Latesha France MD Primary Care Provider +1- [phone] Reason for Visit * Reason Onset Date Comments Shortness of Breath 12/17/2024 Request For Order(s) 12/17/2024 Encounter Details Date Type Department Care Team (Late st Contact Info) Description 12/17/2024 Telephone Adult Medicine [facility] [address] [place] [address] Latesha France MD [address] [place] [address] Social History Tobacco Use Types Packs/Day Years [...] Progress Notes * Latesha France MD - 12/18/2024 11:17 AM EDT Patient had done chest x-ray on 10/31/2024 * Liliya Osman - 12/18/2024 11:05 AM EDT Patient called insurance. They informed her in order for the CT to be approved she needs a Chest X-ray done first before the CT can be approved. * Yvette Tejada RN - 12/17/2024 12:04 PM EDT Please review and advise- pt ongoing sob neg chest xray pfts seen pulmonary insurance denied ct scan * Abraham Benitez - 12/17/2024 11:30 AM EDT Patient stating she spoke with radiology today and was told CT chest scan ordered at [facility] by Dr. France on 11/30 was denied by her insurance. Is requesting new order that will be covered be placed and would like to speak to nurse regarding ongoing symptoms. documented in this encounter Plan of Treatment Upcoming Encounters Date Type Department Care Team (Late st Contact Info) Description 01/22/2025 3:00 PM EDT Treatment [address] [address] Holden Toribio, TOOL REPAIRER BENCH 01/23/2025 4:00 PM EDT Appointment Radiology Department - [address] [phone] 01/29/2025 3:30 PM EST Treatment [address] [address] Breana Quintanilla, PT 02/04/2025 1:00 PM EST Clinical Support Obstetrics and Gynecology - [address] [phone] 02/05/2025 3:00 PM EST Treatment [facility] [address] [address] Holden Toribio, TOOL REPAIRER BENCH 02/12/2025 3:00 PM EST Treatment [facility] [address] [phone] Holden Toribio, TOOL REPAIRER BENCH 02/19/2025 4:00 PM EST Treatment [facility] [address] [address] Breana Quintanilla, PT 02/26/2025 4:30 PM EST Treatment [facility] [address] [address] Breana Quintanilla, PT 03/22/2025 3:00 PM EST Office Visit Adult Medicine [facility] [address] [place] [phone] Latesha France MD [address] [place] [address] 06/13/2025 2:30 PM EDT Office Visit Pulmonology [facility] [address] [phone] Jennifer Kaufman MD [address] [address] documented as of this encounter Goals Goal [...] on filedocumented in this encounter Care Teams Helper Metal Hanging Relationship Specialty Start Date End Date Latesha France MD [address] [place] [address] PCP - General Internal Medicine 02/13/24 documented as of this encounter
--- OUTSIDE RECORDS SUMMARY | 2025-01-17 18:01 | XMS_ITS | Encounter Summary ---
Author Organization [facility] Address [address] [place] [address] Care Team Providers Care Cooker Process Cheese Name Role Phone Latesha France MD Primary Care Provider +1- [phone] Encounter Details Date Type Department Care Team (Late st Contact Info) Description 07/24/2024 Nurse Triage Adult Medicine [address] [address] Latesha France MD [address] [place] [address] Social History Tobacco Use Types Packs/Day Years [...] Info) Description 01/22/2025 3:00 PM EDT Treatment [address] [address] Holden Toribio, RESIZER OPERATOR 01/23/2025 4:00 PM EDT Appointment Radiology Department - [address] [address] 01/29/2025 3:30 PM EST Treatment [address] [address] Breana Quintanilla, PT 02/04/2025 1:00 PM EST Clinical Support Obstetrics and Gynecology - [address] [phone] 02/05/2025 3:00 PM EST Treatment [address] [address] Holden Toribio, RESIZER OPERATOR 02/12/2025 3:00 PM EST Treatment [address] [address] Holden Toirbio, RESIZER OPERATOR 02/19/2025 4:00 PM EST Treatment [address] [address] Breana Quintanilla, PT 02/26/2025 4:30 PM EST Treatment [facility] 175 [facility] [address] [place] [address] Breana Quintanilla, PT 03/22/2025 3:00 PM EST Office Visit Adult Medicine [facility] [address] [place] [address] Latesha France MD [address] [place] [address] 06/13/2025 2:30 PM EDT Office Visit Pulmonology - [facility] 175 [facility] [address] [place] [phone] Jennifer Kaufman MD 175 [facility] [address] [place] [address] documented as of this encounter Visit Diagnoses Not on filedocumented in this encounter Care Teams Cooker Process Cheese Relationship Specialty Start Date End Date Latesha France MD 4 [place] [address] PCP - General Internal Medicine 02/13/24 documented as of this encounter
--- OUTSIDE RECORDS SUMMARY | 2025-01-17 18:01 | XMS_ITS | Encounter Summary ---
Author Organization [facility] Address [address] [place] [address] Care Team Providers Care Leather Cartridge Belt Maker Name Role Phone Latesha France MD Primary Care Provider +1- [phone] Reason for Visit * Reason Onset Date Comments Low Back Pain 01/16/2025 Encounter Details Date Type Department Care Team (Late st Contact Info) Description 01/16/2025 Telephone Adult Medicine [address] [address] Trudi Landaverde RN Social History Tobacco Use Types Packs/Day Years [...] Progress Notes * Trudi Landaverde RN - 01/16/2025 12:16 PM EDT Call to pt spoke to pt.. not sure if she has experienced this pain before, Today , She spoke to neurology today, She call cardiology d/t passing out issue, and testing is being scheduled. Mri ordered by Sebastián at physiatry, Having lab work done ordered by neurology , Pt sent new my chart message today, message reviewed, Pt offered apt today, unable to come in Pt triaged for sinus problem, advice given pt agreed Phone # given to u/c in [place], pt will call if she decides on appt tomorrow. She will call back if advice needed documented in this encounter Plan of Treatment Upcoming Encounters Date Type Department Care Team (Late st Contact Info) Description 01/22/2025 3:00 PM EDT Treatment [address] [address] Holden Toribio, VENEER CLIPPER 01/23/2025 4:00 PM EDT Appointment Radiology Department - [address] [address] 01/29/2025 3:30 PM EST Treatment [address] [address] Breana Quintanilla, PT 02/04/2025 1:00 PM EST Clinical Support Obstetrics and Gynecology - [address] [phone] 02/05/2025 3:00 PM EST Treatment [address] [address] Holden Toribio, VENEER CLIPPER 02/12/2025 3:00 PM EST Treatment [address] [address] Holden Toribio, VENEER CLIPPER 02/19/2025 4:00 PM EST Treatment [address] [address] Breana Quintanilla, PT 02/26/2025 4:30 PM EST Treatment [address] [address] Breana Quintanilla, PT 03/22/2025 3:00 PM EST Office Visit Adult Medicine [place] [address] [place] [address] Latesha France MD 444 [facility] [place] 06/13/2025 2:30 PM EDT Office Visit Pulmonology - [place] [address] [phone] Jennifer Kaufman MD [address] [address] documented as of this encounter Goals Goal [...] on filedocumented in this encounter Care Teams Leather Cartridge Belt Maker Relationship Specialty Start Date End Date Latesha France MD 4 [facility] [place] PCP - General Internal Medicine 02/13/24 documented as of this encounter
--- OUTSIDE RECORDS SUMMARY | 2025-01-17 18:01 | XMS_ITS | Encounter Summary ---
Author Organization [facility] Address [address] [place] [address] Care Team Providers Care Racebook Writer Name Role Phone Latesha France MD Primary Care Provider Encounter Details Date Type Department Care Team (Late Contact Info) Description 01/15/2025 [place] [facility] [address] [place] [address] Latesha France MD [address] [place] [address] Social History Tobacco Use Types Packs/Day Years [...] Info) Description 01/22/2025 3:00 PM EDT Treatment [address] [address] oHlden Toribio PTA 01/23/2025 4:00 PM EDT Appointment Radiology Department - [address] [phone] 01/29/2025 3:30 PM EST Treatment [address] [address] Breana Quintanilla, PT 02/04/2025 1:00 PM EST Clinical Support Obstetrics and Gynecology - [address] [phone] 02/05/2025 3:00 PM EST Treatment [address] [address] Holden Toribio, FRAME SAMPLE AND PATTERN SUPERVISOR 02/12/2025 3:00 PM EST Treatment [address] [address] Holden Toribio, FRAME SAMPLE AND PATTERN SUPERVISOR 02/19/2025 4:00 PM EST Treatment [address] [address] Breana Quintanilla, PT 02/26/2025 4:30 PM EST Treatment [address] [phone] Breana Quintanilla, PT 03/22/2025 3:00 PM EST Office Visit Adult Medicine [address] [phone] Latesha France MD [address] [place] [address] 06/13/2025 2:30 PM EDT Office Visit Pulmonology [address] [phone] Jennifer Kaufman MD [address] [address] documented as of this encounter Goals Goal [...] on filedocumented in this encounter Care Teams Racebook Writer Relationship Specialty Start Date End Date Latesha France MD [address] [place] [address] PCP - General Internal Medicine 02/13/24 documented as of this encounter
--- OUTSIDE RECORDS SUMMARY | 2025-01-17 18:01 | XMS_ITS | Encounter Summary ---
Author Organization [facility] Address [address] [place] [address] Care Team Providers Care Client Services Vice President Name Role Phone Latesha France MD Primary Care Provider [phone] Reason for Visit * Reason Onset Date Comments Abdominal Pain 04/25/2024 Diarrhea 04/25/2024 Encounter Details Date Type Department Care Team (Late st Contact Info) Description 04/25/2024 Nurse Triage Adult Medicine [address] [phone] Latesha France MD [address] [place] [id number] Social History Tobacco Use Types Packs/Day Years [...] recently to another state outside of [place], [place], [place], [place], [place], [place], [place]? no o If yes, did you [...] not applicable PCP: Latesha France MD Payor: [employer]AN / Plan: [employer] MEDICAID / Product Type: *No Product type* / documented in this encounter Plan of Treatment Upcoming Encounters Date Type Department Care Team (Late st Contact Info) Description 01/22/2025 3:00 PM EDT Treatment [address] [phone] Holden Toribio PTA 01/23/2025 4:00 PM EDT Appointment Radiology Department - [address] [phone] 01/29/2025 3:30 PM EST Treatment [address] [phone] Breana Quintanilla, PT 02/04/2025 1:00 PM EST Clinical Support Obstetrics and Gynecology - [address] [phone] 02/05/2025 3:00 PM EST Treatment [address] [phone] Holden Toribio, [employer] 02/12/2025 3:00 PM EST Treatment [address] [phone] Holden Toribio, [employer] 02/19/2025 4:00 PM EST Treatment [address] [phone] Breana Quintanilla, PT 02/26/2025 4:30 PM EST Treatment [address] [phone] Breana Quintanilla, PT 03/22/2025 3:00 PM EST Office Visit Adult Medicine [facility] - [address] [phone] Latesha France MD [address] [place] [address] 06/13/2025 2:30 PM EDT Office Visit Pulmonology - [address] [phone] Jennifer Kaufman MD [address] [phone] documented as of this encounter Visit Diagnoses Not on filedocumented in this encounter Additional Health Concerns Infection Onset Date Last Indicated Resolved Time Respiratory Rule-Out 05/22/2024 05/22/2024 025 7:00 PM EST C. difficile Rule-Out 05/23/2024 05/22/20242024 4:54 PM EST documented as of this encounter Care Teams Client Services Vice President Relationship Specialty Start Date End Date Latesha France MD [address] [place] [address] PCP - General Internal Medicine 02/13/24 documented as of this encounter
--- OUTSIDE RECORDS SUMMARY | 2025-01-17 18:01 | XMS_ITS | Clinical Summary ---
Author Organization [facility] [address] [facility] [address] Address [address] [place] [address] Phone Care Team Providers Care Rock Worker Name Role Phone Latesha France MD Primary Care Provider [phone] Allergies No known active allergies Medications fluticasone [...] for congestion. 15 mL 5 07/20/19 25 026 Active benzoyl peroxide (Acne Medication) 2.5 % gel Apply 1 g topically 2 times daily as needed (acne). 30 g 4 08/04/19 25 Active PHENobarbitaL 30 mg tablet Take 1 tablet (30 mg total) by mouth 1 (one) time each day. 08/15/19 25 Active medroxyPROGESTERon e (Depo-Provera) 150 mg/mL injection Inject 1 mL (150 mg total) into the shoulder, thigh, or buttocks every 3 (three) months. 1 mL 3 08/18/19 25 Active ZOLMitriptan (ZOMIG) 2.5 mg tablet Take 1 tablet (2.5 mg total) by mouth 1 (one) time if needed for migraine. May repeat once after 2 hours. 18 tablet 3 10/18/19 25 026 Active albuterol HFA (Ventolin HFA) 90 mcg/actuation inhaler Inhale 2 puffs by mouth every 6 (six) hours if needed for shortness of breath. 8 g 1 11/01/19 25 026 Active cholecalciferol (VITAMIN D-3) 50 mcg (2,000 unit) capsule Take 1 capsule (2,000 Units total) by mouth 1 (one) time each day. 30 each 11 11/02/19 25 026 Active ibuprofen (ADVIL,MOTRIN) 600 mg tablet Take [...] then stop 18 tablet 12/01/19 25 Active Additional Information Patient not taking.Reported on 12/17/2024 ondansetron ODT (ZOFRAN-ODT) 4 mg disintegrating tablet Dissolve 1 tablet (4 mg total) on top of the tongue every 8 (eight) hours if needed for nausea or vomiting. 20 tablet 3 12/08/19 25 Active diclofenac (VOLTAREN) 50 mg EC tablet Take 1 tablet (50 mg total) by mouth 2 (two) times a day if needed (pain). Do not crush, chew, or split. 28 tablet 1 12/08/19 25 025 Active sertraline (ZOLOFT) 25 mg tablet Take 1 tablet (25 mg total) by mouth 1 (one) time each day. 11/21/19 25 Active baclofen (LIORESAL) 10 mg tablet Take 1 tablet (10 mg total) by mouth 3 (three) times a day. Active Active Problems Problem Noted Date Diagnosed Date [...] Encounters Date Type Department Care Team Description 01/16/2025 Telephone Adult Medicine [address] [phone] Trudi Landaverde RN 01/15/2025 Results Follow-Up Adult Medicine [address] [phone] Latesha France MD 01/11/2025 Telephone Adult Medicine [address] [phone] Latesha France MD 01/11/2025 Telephone [facility] Cardiology [facility] [address] [place] [phone] Maria Eugenia Mccartney MD 01/10/[address] [phone] Latesha France MD 01/07/[address] [phone] Tayler Mandujano MA 12/31/2024 3:00 PM EDT Evaluation [address] [phone] Bridgett Lockwood, PT Lumbar spondylosis (Primary Dx); Chronic bilateral low back pain, unspecified whether sciatica present 12/31/[address] [phone] Latesha France MD 12/19/2024 3:10 PM EDT Office Visit [facility] [address] [place] [phone] Yamilex Eagle NP Syncope, unspecified syncope type (Primary Dx); Chest pain, unspecified type 12/18/2024 Telephone Infectious Disease - [address] [phone] Daphney Stover MA 12/17/2024 3:00 PM EDT Lab Draw Station - [address] SOB (shortness of breath) 12/17/2024 2:30 PM EDT Office Visit Obstetrics and Gynecology [address] [phone] Sally Kinney CNM Breakthrough bleeding on depo provera (Primary Dx) 12/17/2024 Telephone Adult Medicine [place] [address] [phone] Latesha France MD 12/14/2024 3:30 PM EDT Procedure visit Pulmonology [facility] [address] [phone] SOB (shortness of breath) 12/14/2024 3:00 PM EDT Consult Pulmonology - [place] [address] [phone] Jennifer Kaufman MD SOB (shortness of breath) (Primary Dx); Snoring 12/13/2024 1:44 PM EDT - 12/13/2024 11:59 PM EDT Hospital Encounter [address] [phone] Upper back pain Discharge Disposition: Home or Self Care 12/07/2024 Telephone Adult Medicine [address] [phone] Tayler Mandujano MA 11/30/2024 10:30 AM EDT Office Visit Adult [address] [phone] Latesha France MD Paresthesia of both legs (Primary Dx); Constipation, unspecified constipation type; Loss of consciousness (CMS/HCC V24, CMS/HCC V28); Osteoarthritis of lumbar spine, unspecified spinal osteoarthritis complication status; Low back pain, unspecified back pain laterality, unspecified chronicity, unspecified whether sciatica present; Upper back pain; Rib pain; SOB (shortness of breath); Mitral valve insufficiency, unspecified etiology 11/30/2024 Telephone [facility] [address] [facility] [address] [place] [phone] Yamilex Eagle NP 11/23/2024 3:14 PM EDT - 11/23/2024 11:59 PM EDT Hospital Encounter [address] [phone] Pain Discharge Disposition: Home or Self Care 11/22/2024 Telephone Obstetrics and Gynecology [address] [phone] Sally Kinney CNM 11/22/2024 Telephone Adult [address] [phone] Latesha France MD 11/20/2024 Telephone Adult [address] [phone] Latesha France MD 11/19/2024 Telephone Obstetrics [address] [phone] Gemini Bazzi CNM 11/15/[address] [phone] Latesha France MD 11/14/2024 Telephone Obstetrics and [address] [phone] Sally Kinney CNM 11/12/2024 1:00 PM EDT Clinical Support Obstetrics and [address] [phone] Encounter for management and injection of depo-Provera (Primary Dx) 11/09/2024 7:20 AM EDT - 11/09/2024 11:59 PM EDT Hospital Encounter [address] [place] [phone] Discharge Disposition: Home or Self Care 11/07/2024 Telephone Obstetrics and [address] [phone] Sally Kinney CNM 11/06/2024 8:30 AM EDT Office Visit Adult [address] [phone] Latesha France MD Enlarged tonsils (Primary Dx); Sore throat; Localized swelling on left hand 11/05/2024 Telephone Obstetrics and Gynecology [address] [phone] Sally Kinney CNM 11/02/2024 Telephone Adult [address] [phone] Latesha France MD 11/01/[address] [phone] Latesha France MD 10/31/2024 1:39 PM EDT - 10/31/2024 11:59 PM EDT Hospital Encounter XRAY [address] [phone] SOB (shortness of breath) Discharge Disposition: Home or Self Care 10/31/2024 1:00 PM EDT Office Visit [address] [phone] Latesha France MD Psychogenic nonepileptic seizure (Primary Dx); Vitamin D deficiency; SOB (shortness of breath) 10/29/[address] [phone] Latesha France MD 10/26/2024 Telephone [facility] - [address] [place] [phone] Maria Eugenia Mccartney MD 10/26/2024 Telephone Adult [address] [phone] Latesha France MD 10/25/2024 Telephone Adult [address] [phone] Latesha France MD 10/24/2024 Telephone Adult [address] [phone] Latesha France MD 10/22/2024 Telephone Adult Medicine [address] [phone] Latesha France MD 10/19/2024 Telephone Adult Medicine [address] [phone] Latesha France MD 10/18/2024 Telephone Adult Medicine [address] [phone] Latesha France MD 10/17/2024 12:30 PM EDT Office Visit Adult [address] [phone] Latesha rFance MD Other migraine without status migrainosus, not intractable (Primary Dx); Snoring; Repeated interruption of sleep during rapid eye movement stage; Vitamin D deficiency; Iron deficiency anemia, unspecified iron deficiency anemia type; Pain in both lower extremities from Last 3 Months Immunizations Immunization Administration Dates Next Due HPV 9-valent (Gardisil) [...] Sign Reading Time Taken Comments Blood Pressure 112/68 12/19/2024 2:26 PM EDT Pulse 89 12/19/2024 2:26 PM EDT Temperature 36.4 C (97.5 F) 11/30/2024 10:31 AM EDT Respiratory Rate 14 12/17/2024 2:13 PM EDT Oxygen Saturation 98% 12/19/2024 2:26 PM EDT Inhaled Oxygen Concentration - - Weight 49.9 kg (110 lb) 12/19/2024 2:26 PM EDT Height 149.9 cm (4' 11 ) 12/19/2024 2:26 PM EDT Body Mass Index 22.22 12/19/2024 2:26 PM EDT Plan of Treatment Upcoming Encounters Date Type Department Care Team (Late st Contact Info) Description 01/22/2025 3:00 PM EDT Treatment [address] [phone] Holden Toribio, GLUE CLAMP OPERATOR 01/23/2025 4:00 PM EDT Appointment Radiology Department - [address] [phone] 01/29/2025 3:30 PM EST Treatment [address] [phone] Breana Quintanilla, PT 02/04/2025 1:00 PM EST Clinical Support Obstetrics and Gynecology - [address] [phone] 02/05/2025 3:00 PM EST Treatment [address] [phone] Holden Toribio, GLUE CLAMP OPERATOR 02/12/2025 3:00 PM EST Treatment [address] [phone] Holden Toribio, GLUE CLAMP OPERATOR 02/19/2025 4:00 PM EST Treatment [facility] [address] [phone] Breana Quintanilal, PT 02/26/2025 4:30 PM EST Treatment [facility] [address] [phone] Breana Quintanilla, PT 03/22/2025 3:00 PM EST Office Visit Adult Medicine [facility] [address] [place] [phone] Latesha France MD [address] [place] [address] 06/13/2025 2:30 PM EDT Office Visit Pulmonology [facility] [address] [phone] Jennifer Kaufman MD [address] [phone] Health Maintenance Due Date Last Done Comments Meningococcal B Vaccine (1 o f 2 - Standard) 2017 Hepatitis B Vaccines (1 of 3 - 19+ 3-dose series) 2020 HIV Screening 02/28/2022 Hepatitis C Screening 02/28/2022 Social Influencers of Health Screening 02/28/2022 Depression Screening 03/28/2024 07/29/2023 COVID-19 Vaccine (3 - 2024-2 6 season) 2024 08/22/2020, 07/25/2020 Influenza Vaccine (#1) 2024 Gonorrhea/Chlamydia Screening 12/17/2025, 04/30/2024 Cervical Cancer Screening: P ap Smear 08/29/2026 08/30/2023, 08/30/2023, 08/30/2023 Cholesterol Screening (Lipid Panel) 07/19/2029 07/19/2024, 04/07/2023 DTaP,Tdap,and Td Vaccines (2 - Td or Tdap) 04/07/2033 04/07/2023 RSV Immunization Adult Patients (1 - 1-dose 75+ series) 2076 HPV Vaccines Completed 03/07/2024, 10/04/2023, 08/23/2023 HIB [...] on patient's age to complete this topic Goals Goal Patient Goal Type Associated Problems Recent Progress Patient-Stated? Author PT LTG - 6 visits General No Bridgett Lockwood, VANNESA Note: Patient reports subjective decrease in back pain Patient is able to complete 6 min walk test Slight flexibility restriction to bilateral QL Patient is able to achieve 100% lumbar flexion and extension without deviations Patient is independent and compliant with HEP Procedures Procedure Name Priority Date/Time Associated Diagnosis Comments VITAMIN D 25 HYDROXY Routine 01/09/2025 3:18 PM EDT Vitamin D deficiency EXTERNAL NEUROLOGY REPORT 12/25/2024 EXTERNAL NEUROLOGY REPORT 12/24/2024 CULTURE URINE Routine 12/17/2024 3:13 PM EDT Breakthrough bleeding on depo provera CHLAMYDIA TRACHOMATIS AND NEISSERIA GONORRHOEAE PCR Routine 12/17/2024 3:13 PM EDT Breakthrough bleeding on depo provera TRICHOMONAS VAGINALIS ANTIGEN Routine 12/17/2024 3:13 PM EDT Breakthrough bleeding on depo provera CBC WITH AUTO DIFFERENTIAL Routine 12/17/2024 3:12 PM EDT SOB (shortness of breath) CBC AND DIFFERENTIAL Routine 12/17/2024 3:12 PM EDT SOB (shortness of breath) D-DIMER STAT 12/17/2024 3:12 PM EDT SOB (shortness of breath) PULMONARY FUNCTION TESTING Routine 12/14/2024 4:44 PM EDT SOB (shortness of breath) XR THORACIC SPINE 2 VIEWS Routine 12/13/2024 2:04 PM EDT Upper back pain XR LUMBAR SPINE 4+ VIEWS Routine 025 [...] seizure MYOSITIS MARKER PANEL 3 Routine 11/01/19 1:39 PM EDT Psychogenic nonepileptic seizure VITAMIN [...] PM EDT Pain in both lower extremities LIPID PANEL WITH REFLEX TO DIRECT LDL Routine 07/19/2024 1:38 PM EDT 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 Vit D, 25-Hydroxy 31.5 30.0 - 80.0 ng/mL LAB CHEMISTRY METHOD 01/09/2025 6:40 PM EDT [facility] Blood Venous blood specimen / Unknown Venipuncture / Unknown 01/09/2025 3:18 PM EDT 01/09/2025 3:18 PM EDT Latesha France MD LAB BLOOD ORDERABLES Final Result [facility] [address] [place] [address], * External Neurology Report (12/25/2024) us Provider [facility] NEUROLOGY ORDERABLES Fin al Result * External Neurology Report (12/24/2024) us Provider [facility] NEUROLOGY ORDERABLES Fin al Result * Trichomonas vaginalis antigen (12/17/2024 3:13 PM EDT) Trichomonas vaginalis Negative Negative 12/17/2024 7:16 PM EDT [facility] Swab Vaginal structure / Unknown Non-blood Collection / Unknown 12/17/2024 3:13 PM EDT 12/17/2024 3:13 PM EDT Sally Kinney CNM LAB MICROBIOLOGY - GENERAL ORDE RABLES Final Result [facility] [address] [place] [address], * Chlamydia trachomatis and Neisseria gonorrhoeae molecular study (12/17/2024 3:13 PM EDT) Pathologist [facility] Neisseria gonorrhoeae PCR Negative Negative LAB MOLECULAR DIAGNOSTICS METHOD 12/18/2024 9:04 AM EDT [facility] Chlamydia trachomatis PCR Negative Negative LAB MOLECULAR DIAGNOSTICS METHOD 12/18/2024 9:04 AM EDT [facility] Swab Cervix uteri structure / Unknown Non-blood Collection / Unknown 12/17/2024 3:13 PM EDT 12/17/2024 3:13 PM EDT Sally Kinney CNM LAB MICROBIOLOGY - GENERAL ORDE RABLES Final Result [facility] [address] [place] [address], [place] [phone] * Culture urine (12/17/2024 3:13 PM EDT) Culture, Urine <10,000 CFU/mL gram negative bacilli, insignificant count, no further workup 12/18/2024 1:42 PM EDT [facility] Urine Urine specimen obtained by clean catch procedure / Unknown Non-blood Collection / Unknown 12/17/2024 3:13 PM EDT 12/17/2024 3:13 PM EDT Sally ALLEN LAB MICROBIOLOGY - GENERAL RITA MUÑIZ Final Result [facility] [address] [place] [address], * (ABNORMAL) CBC auto differential (12/17/2024 3:12 PM EDT) WBC 7.8 4.8 - 10.8 K/mcL LAB HEMETOLOGY METHOD 12/17/2024 4:26 PM EDT [facility] RBC 4.50 3.80 - 4.80 M/mcL LAB HEMETOLOGY METHOD 12/17/2024 4:26 PM EDT [facility] Hemoglobin 13.5 11.5 - 16.0 g/dL LAB HEMETOLOGY METHOD 12/17/2024 4:26 PM EDT [facility] Hematocrit 39.3 35.0 - 47.0 % LAB HEMETOLOGY METHOD 12/17/2024 4:26 PM EDT [facility] MCV 87.9 79.0 - 98.0 FL LAB HEMETOLOGY METHOD 12/17/2024 4:26 PM EDT [facility] MCH 30.2 27.0 - 32.0 pcg LAB HEMETOLOGY METHOD 12/17/2024 4:26 PM EDT [facility] MCHC 34.4 32.0 - 37.0 g/dL LAB HEMETOLOGY METHOD 12/17/2024 4:26 PM EDT [facility] RDW 11.8 11.0 - 15.0 % LAB HEMETOLOGY METHOD 12/17/2024 4:26 PM EDT [facility] Platelets 277 130 - 400 K/mcL LAB HEMETOLOGY METHOD 12/17/2024 4:[facility] MPV 10.6 7.0 - 11.0 FL LAB HEMETOLOGY METHOD 12/17/2024 4:26 PM [facility] NRBC 0.0 <1.0 % LAB HEMETOLOGY METHOD 12/17/2024 4:26 PM [facility] NRBC Absolute 0.00 <0.10 K/mcL LAB HEMETOLOGY METHOD 12/17/2024 4:26 PM [facility] Neutrophils Relative 56.9 % LAB HEMETOLOGY METHOD 12/17/2024 4:26 PM [facility] Lymphocytes Relative 28.1 % LAB HEMETOLOGY METHOD 12/17/2024 4:26 PM [facility] Monocytes Relative 7.5 % LAB HEMETOLOGY METHOD 12/17/2024 4:26 PM [facility] Eosinophils Relative 7.1 % LAB HEMETOLOGY METHOD 12/17/2024 4:26 PM [facility] Basophils Relative 0.3 % LAB HEMETOLOGY METHOD 12/17/2024 4:26 PM [facility] Immature Granulocytes Relative 0.1 % LAB HEMETOLOGY METHOD 12/17/2024 4:26 PM [facility] Neutrophils Absolute 4.46 1.50 - 7.00 K/mcL LAB HEMETOLOGY METHOD 12/17/2024 4:26 PM [facility] Lymphocytes Absolute 2.20 1.00 - 5.00 K/mcL LAB HEMETOLOGY METHOD 12/17/2024 4:26 PM [facility] Monocytes Absolute 0.59 0.20 - 1.00 K/mcL LAB HEMETOLOGY METHOD 12/17/2024 4:26 PM [facility] Eosinophils Absolute 0.56(H) 0.00 - 0.50 K/mcL LAB HEMETOLOGY METHOD 12/17/2024 4:26 PM EDT [facility] Basophils Absolute 0.02 0.00 - 0.20 K/mcL LAB HEMETOLOGY METHOD 12/17/2024 4:26 PM EDT [facility] Immature Granulocytes Absolute 0.01 0.00 - 0.03 K/mcL LAB HEMETOLOGY METHOD 12/17/2024 4:26 PM EDT [facility] Blood Venous blood specimen / Unknown Venipuncture / Unknown 12/17/2024 3:12 PM EDT 12/17/2024 3:12 PM EDT us Jennifer Kaufman MD LAB BLOOD ORDERABLES Final Resul t Performing Organization Address [facility] Co de Phone Number [facility] [address] [place] [address], [place] [phone] * D-Dimer (12/17/2024 3:12 PM EDT) D-Dimer, Quant (D-DU) <150 <=230 ng/mL DDU LAB COAGULATION METHOD 12/17/2024 4:34 PM EDT [facility] Blood Venous blood specimen / Unknown Venipuncture / Unknown 12/17/2024 3:12 PM EDT 12/17/2024 3:12 PM EDT Narrative [facility] - 12/17/2024 4:34 PM EDT D-Dimer <230 ng/mL (D-Dimer units) is the threshold for exclusion of DVT/PE. D-Dimer may be elevated in: Critically ill, severely infected, trauma patients, DIC, acute CVA, acute [place], unstable angina, AF, old age, , and smoking. D-Dimer may be decreased with: Initiation of heparin therapy and oral anticoagulants. us Jennifer Kaufman MD LAB BLOOD ORDERABLES Final Resul t Performing Organization Address City/[facility]/ZIP Co de Phone Number [facility] [address] [place] [address], [place] [phone] * Pulmonary function testing: Nitric Oxide Gas Determination (12/14/2024 4:44 PM EDT) Impressions Tin Avendaño MD - 12/14/2024 4:44 PM EDT NIOX is 5 ppb. Jennifer Kaufman MD PFT ORDERABLES Final Result * XR Thoracic Spine 2 Views (12/13/2024 2:04 PM EDT) Anatomical Region Laterality Modality Spine, T-spine Radiographic Domonique ging 12/13/2024 6:44 PM EDT Impressions 12/13/2024 6:47 PM EDT No compression deformities. Minimal degenerative changes. -------- FINAL REPORT -------- Dictated By: Merle Rao Dictated Date: 12/13/2024 18:44 ET Assigned Physician: Merle Rao Reviewed and Electronically Signed By: Merle Rao Signed Date: 12/13/2024 18:47 ET Workstation ID: [id number] Transcribed By: Self Edit Transcribed Date: 12/13/2024 18:44 ET Narrative 12/13/2024 6:47 PM EDT EXAM: Thoracic spine x-ray HISTORY: Upper back pain. COMPARISON: 05/24/2024 FINDINGS: AP and lateral views performed. Vertebral body heights are maintained. Minimal endplate spurring in the lower spine. Intervertebral disc spaces are maintained. No subluxation. Pedicles appear intact. Procedure Note Merle Rao MD - 12/13/2024 EXAM: Thoracic spine x-ray HISTORY: Upper back pain. COMPARISON: 05/24/2024 FINDINGS: AP and lateral views performed. Vertebral body heights are maintained. Minimal endplate spurring in thelower spine. Intervertebral disc spaces are maintained. No subluxation.Pedicles appear intact. IMPRESSION: No compression deformities. Minimal degenerative changes. -------- FINAL REPORT -------- Dictated By: Merle Rao Dictated Date: 12/13/2024 18:44 ET Assigned Physician: Merle Rao Reviewed and Electronically Signed By: Merle Rao Signed Date: 12/13/2024 18:47 ET Workstation ID: [id number] Transcribed By: Self Edit Transcribed Date: 12/13/2024 18:44 ET us Latesha France MD IMG XR PROCEDURES Final Res ult * XR Lumbar Spine 4+ Views (11/23/2024 [...] Signed Date: 11/23/2024 23:39 ET Workstation ID: [id number] Transcribed By: Self Edit Transcribed Date: 11/23/2024 [...] Signed Date: 11/23/2024 23:39 ET Workstation ID: [id number] Transcribed By: Self Edit Transcribed Date: 11/23/2024 23:38 ET us Sebastián JONES IMG XR PROCEDURES Final Result * CT Abdomen Pelvis w Contrast (11/23/2024 2:11 PM EDT) Anatomical Region Laterality Modality Body Computed Tomogra phy Historical Provider IMAman CT PROCEDURES Final R esult * Pulmonary function testing: Spirometry with Bronchodilator, Spirometry (11/09/2024 8:01 AM EDT) Narrative Jennifer Kaufman MD - 11/09/2024 6:58 PM EDT Table formatting from the original result was not included. Images from the original result were not included. [facility] [address] [place] [id number] Pulmonary Functions Report Date of service: 11/09/24 [...] Pass Yes Yes Swab Structure of anterior region of neck / Unknown 11/06/2024 9:14 AM EDT us Latesha France MD POINT OF CARE TEST ENTER/ED IT ORDERABLES Final Result * Culture throat (11/06/2024 9:13 AM EDT) Culture, Throat No pathogens isolated. 11/08/2024 10:35 AM EDT [facility] Swab Structure of anterior region of neck / Unknown Non-blood Collection / Unknown 11/06/2024 9:13 AM EDT 11/06/2024 9:13 AM EDT Latesha France MD LAB MICROBIOLOGY - GENERAL ORDERABLES Final Result [facility] [address] [place] [address], [place] [phone] * XR Chest 2 Views (10/31/2024 1:52 PM EDT) Anatomical Region Laterality Modality Body Radiographic Domonique ging 10/31/2024 6:17 PM EDT Impressions 10/31/2024 6:17 PM EDT No acute cardiopulmonary process. -------- FINAL REPORT -------- Dictated By: Courtney Prakash Dictated Date: 10/31/2024 18:17 ET Assigned Physician: Courtney Prakash Reviewed and Electronically Signed By: Courtney Prakash Signed Date: 10/31/2024 18:17 ET Workstation ID: [id number] Transcribed By: Self Edit Transcribed Date: 10/31/2024 [...] Courtney Prakash Reviewed and Electronically Signed By: Courtnye Prakash Signed Date: 10/31/2024 18:17 ET Workstation ID: [id number] Transcribed By: Self Edit Transcribed Date: 10/31/2024 18:17 ET us Latesha France MD IMG XR PROCEDURES Final Res ult * Interferon gamma interpretation (10/31/2024 1:39 PM EDT) Quantiferon Plus Interpretation Negative Negative LAB CHEMISTRY METHOD 11/02/2024 11:18 AM EDT [facility] Blood Venous blood specimen / Unknown Venipuncture / Unknown 10/31/2024 1:39 PM EDT 10/31/2024 1:39 PM EDT us Latesha France MD LAB BLOOD ORDERABLES Final Result [facility] [address] [place] [address], [place] [phone] * Interferon gamma antigen 2 (10/31/2024 1:39 PM EDT) Blood Venous blood specimen / Unknown Venipuncture / Unknown 10/31/2024 1:39 PM EDT 10/31/2024 1:39 PM EDT us Latesha France MD LAB BLOOD ORDERABLES Final Result [facility] [address] [place] [address], [place] [phone] * Interferon gamma antigen 1 (10/31/2024 1:39 PM EDT) Blood Venous blood specimen / Unknown Venipuncture / Unknown 10/31/2024 1:39 PM EDT 10/31/2024 1:39 PM EDT Latesha France MD LAB BLOOD ORDERABLES Final Result Performing Organization Address City/[facility]/ZIP Co de Phone Number [facility] [address] [place] [address], [place] [phone] * Interferon gamma mitogen (10/31/2024 1:39 PM EDT) Blood Venous blood specimen / Unknown Venipuncture / Unknown 10/31/2024 1:39 PM EDT 10/31/2024 1:39 PM EDT Latesha France MD LAB BLOOD ORDERABLES Final Result Performing Organization Address City/[facility]/ZIP Co de Phone Number [facility] [address] [place] [address], [place] [phone] * Interferon gamma NIL (10/31/2024 1:39 PM EDT) Blood Venous blood specimen / Unknown Venipuncture / Unknown 10/31/2024 1:39 PM EDT 10/31/2024 1:39 PM EDT Latesha France MD LAB BLOOD ORDERABLES Final Result Performing Organization Address City/[facility]/ZIP Co de Phone Number [facility] [address] [place] [address], [place] [phone] * Myositis panel 3 (10/31/2024 1:39 PM [...] approved by the Food and Drug Administration. [place]-2 Ab Negative Negative 11/16/2024 1:10 PM EDT [...] approved by the Food and Drug Administration. Anti-U1-GEOLOGICAL SCOUT Ab <20 <20 Units 11/16/2024 1:10 PM [...] the Food and Drug Administration. Fibrillarin (U3 GEOLOGICAL SCOUT) Ab Negative Negative 11/16/2024 1:10 PM EDT [facility] Comment: This test was developed and its performance characteristics determined by [facility]. It has not been cleared or approved by the Food and Drug Administration. Interpretation for Anti-Dottie-1, [id number], Anti-MDA-5, Anti-NXP-2, Anti-PM/Scl-100, Anti-SS-A 52 kD, Anti-U1 GEOLOGICAL SCOUT: Negative: <20 Weak Positive: 20 - 39 Moderate Positive: 40 - 80 Strong Positive: >80 . Test Performed by: [facility] [address] [place] [address] Blood Venous blood specimen / Unknown Venipuncture / Unknown 10/31/2024 1:39 PM EDT 10/31/2024 1:39 PM EDT us Latesha France MD LAB BLOOD ORDERABLES Final Result [facility] [address] [place] [address] * Basic metabolic panel (10/31/2024 1:39 PM EDT) Sodium 136 133 - 145 mmol/L LAB CHEMISTRY METHOD 10/31/2024 4:33 PM [facility] Potassium 4.6 3.5 - 5.5 mmol/L LAB CHEMISTRY METHOD 10/31/2024 4:33 PM [facility] Chloride 103 96 - 110 mmol/L LAB CHEMISTRY METHOD 10/31/2024 4:33 PM [facility] CO2 29 21 - 32 mmol/L LAB CHEMISTRY METHOD 10/31/2024 4:33 PM [facility] Anion Gap 4 3 - 11 LAB CHEMISTRY METHOD 10/31/2024 4:33 PM [facility] Glucose 76 70 - 100 mg/dL LAB CHEMISTRY METHOD 10/31/2024 4:33 PM [facility] BUN 10 5 - 25 mg/dL LAB CHEMISTRY METHOD 10/31/2024 4:33 PM [facility] Creatinine 0.65 0.50 - 1.10 mg/dL LAB CHEMISTRY METHOD 10/31/2024 4:33 PM [facility] eGFR 127 >=60 mL/min/1. 73m2 LAB CHEMISTRY METHOD 10/31/2024 4:33 PM [facility] Comment:Calculation based on the Chronic Kidney Disease Epidemiology Collaboration (CKD-EPI) equation refit without adjustment for race. BUN/Creatinine Ratio 15.4 LAB CHEMISTRY METHOD 10/31/2024 4:33 PM [facility] Calcium 9.7 8.5 - 10.5 mg/dL LAB CHEMISTRY METHOD 10/31/2024 4:33 PM [facility] Blood Venous blood specimen / Unknown Venipuncture / Unknown 10/31/2024 1:39 PM EDT 10/31/2024 1:39 PM EDT Latesha France MD LAB BLOOD ORDERABLES Final Result Performing Organization Address [facility]/ZIP Co de Phone Number [facility] [address] [place] [address], [place] [phone] * Sjogrens antibodies, SSA and SSB (10/17/2024 12:22 PM EDT) Pathologist [facility] Sjogren's SS-A (Ro) Ab Quant 1 <20 units LAB CHEMISTRY METHOD 10/21/2024 10:18 AM EDT [facility] Sjogren's SS-A (Ro) Ab Negative Negative LAB CHEMISTRY METHOD 10/21/2024 10:18 AM EDT [facility] SS-B (La) Ab Quant 2 <20 units LAB CHEMISTRY METHOD 10/21/2024 10:18 AM EDT [facility] Sjogren's SS-B (La) Ab Negative Negative LAB CHEMISTRY METHOD 10/21/2024 10:18 AM EDT [facility] Blood Venous blood specimen / Unknown Venipuncture / Unknown 10/17/2024 12:22 PM EDT 10/17/2024 12:22 PM EDT Latesha France MD LAB BLOOD ORDERABLES Final Result Performing Organization Address [facility]/ZIP Co de Phone Number [facility] [address] [place] [address], [place] [phone] * Myocardial antibody IgG, reflex to titer (10/17/2024 12:22 PM EDT) Pathologist [facility] Myocardial Antibody Screen, IFA NEGATIVE NEGATIVE 10/25/2024 1:40 AM EDT [facility] Comment: This test was developed and its analytical performance characteristics have been determined by [facility]. It has not been cleared or approved by the FDA. This assay has been validated pursuant to the CLIA regulations and is used for clinical purposes. Myocardial Antibody Titer TNP 10/25/2024 1:40 AM EDT [facility] Comment: Test Not Performed. Screening test Negative or Not Detected. Titer not performed. Test Performed at: [facility] [address] [id number] Melba Anna MD, PhD, AZIZA Comment added after verification. Original result, verified by I/AUT at 01:40 on 10/25/2024 Blood Venous blood specimen / Unknown Venipuncture / Unknown 10/17/2024 12:22 PM EDT 10/17/2024 12:22 PM EDT Latesha France MD LAB BLOOD ORDERABLES Edited Result - Final [facility] [address] [place] [address] * Thyroid peroxidase antibody (10/17/2024 12:22 PM EDT) Thyroid Peroxidase Ab 60.0 <=60.0 I Unit/mL LAB CHEMISTRY METHOD 10/17/2024 4:26 PM EDT [facility] Blood Venous blood specimen / Unknown Venipuncture / Unknown 10/17/2024 12:22 PM EDT 10/17/2024 12:22 PM EDT Latesha France MD LAB BLOOD ORDERABLES Final Result [facility] [address] [place] [address], [place] [phone] * Iron and TIBC (10/17/2024 12:22 PM EDT) Iron 128 40 - 150 mcg/dL LAB CHEMISTRY METHOD 10/17/2024 3:07 PM EDT [facility] TIBC 365 250 - 450 mcg/dL LAB CHEMISTRY METHOD 10/17/2024 3:07 PM EDT [facility] Iron Saturation 35 15 - 50 % LAB CHEMISTRY METHOD 10/17/2024 3:07 PM EDT [facility] Blood Venous blood specimen / Unknown Venipuncture / Unknown 10/17/2024 12:22 PM EDT 10/17/2024 12:22 PM EDT us Latesha France MD LAB BLOOD ORDERABLES Final Result [facility] [address] [place] [address], [place] [phone] * Smooth muscle antibody IgG (10/17/2024 12:22 PM EDT) Smooth Muscle (F-Actin) IgG Ab 5 <20 UNITS 10/22/2024 2:00 PM EDT [facility] Comment: Interpretation: Negative Test performed at [facility], [address], [place] [address] Darcy Parker MD, PhD - [employer] Blood Venous blood specimen / Unknown Venipuncture / Unknown 10/17/2024 12:22 PM EDT 10/17/2024 12:22 PM EDT Latesha France MD LAB BLOOD ORDERABLES Final Result Performing Organization Address City/[facility]/ZIP Co de Phone Number [facility] [address] [place] [address] * Anti-scleroderma antibody (10/17/2024 12:22 PM EDT) Scleroderma SCL - 70 Negative Negative LAB CHEMISTRY METHOD 10/21/2024 10:18 AM EDT [facility] Blood Venous blood specimen / Unknown Venipuncture / Unknown 10/17/2024 12:22 PM EDT 10/17/2024 12:22 PM EDT us Latesha France MD LAB BLOOD ORDERABLES Final Result [facility] [address] [place] [address], [place] [phone] * DNA antibody, double-stranded (10/17/2024 12:22 PM EDT) Anti-DNA Double Stranded Antibody Negative Negative LAB CHEMISTRY METHOD 10/21/2024 10:17 AM EDT [facility] ds DNA Ab 31 <=200 I Unit/mL LAB CHEMISTRY METHOD 10/21/2024 10:17 AM EDT [facility] Blood Venous blood specimen / Unknown Venipuncture / Unknown 10/17/2024 12:22 PM EDT 10/17/2024 12:22 PM EDT Latesha France MD LAB BLOOD ORDERABLES Final Result [facility] [address] [place] [address], [place] [phone] * Anti-parietal antibody (10/17/2024 12:22 PM EDT) Gastric Parietal Cell Ab 1.4 <=20 UNITS 10/26/2024 1:27 PM EDT [facility] Comment: Interpretation: Negative Test performed at [facility], [address] [place] [address] Darcy Parker MD, PhD - [employer]ud [employer]inder Blood Venous blood specimen / Unknown Venipuncture / Unknown 10/17/2024 12:22 PM EDT 10/17/2024 12:22 PM EDT Latesha France MD LAB BLOOD ORDERABLES Final Result [facility] [address] [place] [address] * Antimitochondrial antibody (10/17/2024 12:22 PM EDT) Mitochondrial Antibody Quantitative 13.7 <=20.0 units LAB CHEMISTRY METHOD 10/24/2024 11:29 AM EDT [facility] Mitochondrial Antibody Qualitative Negative Negative LAB CHEMISTRY METHOD 10/24/2024 11:29 AM EDT [facility] Blood Venous blood specimen / Unknown Venipuncture / Unknown 10/17/2024 12:22 PM EDT 10/17/2024 12:22 PM EDT us Latesha France MD LAB BLOOD ORDERABLES Final Result [facility] [address] [place] [address], [place] [phone] * Rheumatoid factor (10/17/2024 12:22 PM EDT) Pathologist [facility] Rheumatoid Factor <10.0 <15.0 I Unit/mL LAB CHEMISTRY METHOD 10/17/2024 3:07 PM EDT [facility] Blood Venous blood specimen / Unknown Venipuncture / Unknown 10/17/2024 12:22 PM EDT 10/17/2024 12:22 PM EDT us Latesha France MD LAB BLOOD ORDERABLES Final Result [facility] [address] [place] [address], [place] [phone] * C3 complement (10/17/2024 12:22 PM EDT) C3 Complement 127 88 - 201 mg/dL LAB CHEMISTRY METHOD 10/17/2024 3:07 PM EDT [facility] Blood Venous blood specimen / Unknown Venipuncture / Unknown 10/17/2024 12:22 PM EDT 10/17/2024 12:22 PM EDT us Latesha France MD LAB BLOOD ORDERABLES Final Result Performing Organization Address City/[facility]/ZIP Co de Phone Number [facility] [address] [place] [address], [place] [phone] * C4 complement (10/17/2024 12:22 PM EDT) C4 Complement 30 16 - 47 mg/dL LAB CHEMISTRY METHOD 10/17/2024 3:07 PM EDT [facility] Blood Venous blood specimen / Unknown Venipuncture / Unknown 10/17/2024 12:22 PM EDT 10/17/2024 12:22 PM EDT Latesha France MD LAB BLOOD ORDERABLES Final Result Performing Organization Address [facility]/ZIP Co de Phone Number [facility] [address] [place] [address], [place] [phone] * Lipid panel with reflex to direct LDL (07/19/2024 1:38 PM EDT) Cholesterol 142 0 - 200 mg/dL LAB CHEMISTRY METHOD 07/19/2024 5:47 PM EDT [facility] Triglycerides 54 0 - 150 mg/dL LAB CHEMISTRY METHOD 07/19/2024 5:47 PM [facility] HDL 63 >=40 mg/dL LAB CHEMISTRY METHOD 07/19/2024 5:47 PM EDT [facility] LDL Calculated 68 0 - 100 mg/dL LAB CHEMISTRY METHOD 07/19/2024 5:47 PM EDT [facility] VLDL Cholesterol Nahid 10.8 mg/dL LAB CHEMISTRY METHOD 07/19/2024 5:47 PM EDT [facility] Non HDL Chol. (LDL+VLDL) 79 <145 mg/dL LAB CHEMISTRY METHOD 07/19/2024 5:47 PM EDT [facility] Chol/HDL Ratio 2.3 0.0 - 4.4 LAB CHEMISTRY METHOD 07/19/2024 5:47 PM EDT [facility] Blood Venous blood specimen / Unknown Venipuncture / Unknown 07/19/2024 1:38 PM EDT 07/19/2024 1:38 PM EDT Latesha France MD LAB BLOOD ORDERABLES Final Result [facility] [address] [place] [address], * Cervical Cancer Screening: HPV (08/30/2023) Cervical Cancer Screening: HPV abstracted; no interpretation Historical Provider HEALTH MAINTENANCE Final Result * Depression Screening (07/29/2023) Depression Screening abstracted Historical Provider HEALTH MAINTENANCE Final Result from Last 3 Months or Most Recently Relevant to Health Maintenance Insurance [facility] Care Teams 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
--- OUTSIDE RECORDS SUMMARY | 2025-01-17 18:01 | XMS_ITS ---
Author Name [facility] Organization Unknown History of Medication Use Medication Directions Dispensed Refills Start Date End Date Stat us diclofenac (VOLTAREN) 50 mg EC tablet Take 1 tablet (50 mg total) by mouth 2 (two) times a day if needed (pain). Do not crush, chew, or split. 12/07/2024 active ondansetron ODT (ZOFRAN-ODT) 4 mg disintegrating tablet Dissolve 1 tablet (4 mg total) on top of the tongue every 8 (eight) hours if needed for nausea or vomiting. 12/07/2024 active ibuprofen (ADVIL,MOTRIN) 600 mg tablet Take 1 tablet (600 mg total) by mouth every 8 (eight) hours if needed for mild pain or moderate pain (pain). 11/30/2024 active predniSONE (DELTASONE) 20 mg tablet Take 60 mg PO daily for 3 days, then take 40 mg PO daily for 3 days, then 20 mg PO daily for 3 days, then stop 11/30/2024 active sertraline (ZOLOFT) 25 mg tablet Take 1 tablet (25 mg total) by mouth 1 (one) time each day. 11/20/2024 active cholecalciferol (VITAMIN D-3) 50 mcg (2,000 unit) capsule Take 1 capsule (2,000 Units total) by mouth 1 (one) time each day. 11/01/2024 active albuterol HFA (Ventolin HFA) 90 mcg/actuation inhaler Inhale 2 puffs by mouth every 6 (six) hours if needed for shortness of breath. 10/31/2024 active ZOLMitriptan (ZOMIG) 2.5 mg tablet Take 1 tablet (2.5 mg total) by mouth 1 (one) time if needed for migraine. May repeat once after 2 hours. 10/17/2024 active medroxyPROGESTERone (Depo-Provera) 150 mg/mL injection Inject 1 mL (150 mg total) into the shoulder, thigh, or buttocks every 3 (three) months. 08/17/2024 active PHENobarbitaL 30 mg tablet Take 1 tablet (30 mg total) by mouth 1 (one) time each day. 08/14/2024 active benzoyl peroxide (Acne Medication) 2.5 % gel Apply 1 g topically 2 times daily as needed (acne). 08/03/2024 active sodium chloride (OCEAN) 0.65 % nasal spray Administer 1 spray into each nostril if needed for congestion. 07/19/2024 active fluticasone propionate (FLONASE) 50 mcg/actuation nasal spray SPRAY 2 SPRAYS INTO EACH NOSTRIL EVERY DAY SHAKE GENTLY. CLEAN TIP AND REPLACE CAP AFTER USE. 05/11/2024 active triamcinolone (KENALOG) 0.1 % ointment Apply topically 2 (two) times a day. For 2 weeks 05/11/2024 active gabapentin (NEURONTIN) 300 mg capsule Take 1 capsule (300 mg total) by mouth at bedtime. active Problems Problem Status Onset Date Problem Type Date of Resoluti on Source Developmental delay, mild active 2024-08-17 ProblemAct [facility] Constipation active 2024-11-30 ProblemAct [facility]_TH SFRAN Abdominal discomfort active 2024-07-24 ProblemAct [facility] Nasal congestion active 2024-07-19 ProblemAct C T_THSFRAN Pre-syncope active 2024-10-02 ProblemAct [facility]S [facility] Moderate intellectual disabilities active 2021-04-08 ProblemAct [facility] White matter abnormality on MRI of brain active 2024-07-19 ProblemAct [facility] Engages in vaping active 2024-07-19 ProblemAct [facility] Hypotension active 2024-01-04 ProblemAct [facility] Snoring active 2024-10-17 ProblemAct [facility]_THSFR AN PTSD (post-traumatic stress disorder) active 2024-01-04 ProblemAct [facility] Osteoarthritis of lumbar spine active 2024-11-30 ProblemAct [facility] Cannabis use disorder active 2024-07-19 ProblemAct [facility] Low bicarbonate active 2024-07-19 ProblemAct [facility] _THSFRAN Sinus tachycardia active 2024-01-04 ProblemAct [facility]_THSFRAN Hypoglycemia active 2024-07-24 ProblemAct [facility] SFRAN Tinnitus of right ear active 2024-07-24 ProblemAct [facility] Paresthesia of both legs active 2024-11-30 ProblemAct [facility] Atherosclerosis of artery of both lower extremities (CMS/HCC V24) active 2024-07-19 ProblemAct [facility] Rib pain active 2024-11-30 ProblemAct [facility]_THSFR AN Insomnia active 2024-01-26 ProblemAct [facility] AN Psychogenic nonepileptic seizure active 2023-10-18 ProblemAct [facility] Pain in both lower extremities active 2024-07-24 ProblemAct [facility] Migraine without status migrainosus, not intractable active 2023-10-18 ProblemAct [facility] Menorrhagia with regular cycle active 2024-01-04 ProblemAct [facility] Abnormal leg movement active 2024-10-02 ProblemAct [facility]_THS[facility] Chest pain active 2024-07-24 ProblemAct [facility]_THSF RAN Weakness of both lower extremities active 2024-07-19 ProblemAct [facility]_THS[facility] Low back pain active 2024-11-30 ProblemAct [facility]_T HSFRAN Immunizations Vaccine Date Source Lot Number Status HPV 9-valent (Gardisil) 9yo to less than 46yo 03/07/2024 [facility]_THSFRAN [id number] completed HPV 9-valent (Gardisil) 9yo to less than 46yo 10/04/2023 CT_THSFRAN [id number] completed HPV 9-valent (Gardisil) 9yo to less than 46yo 08/23/2023 CT_THSFRAN [id number] completed Tdap Tetanus diptheria acell ular pertussis (Boostrix; Adacel) 7yo and older 04/07/2023 CT_THSFRAN [id number] completed
[2025-01-17 18:32] LABS: Iron 103 mcg/dL (30-160); Percent Iron Saturation 31 % (15-50); Total Iron Binding Capacity 333 mcg/dL (228-428); Unsaturated Iron Binding 230 ug/dL
[2025-01-17 18:41] LABS: Ferritin 22 ng/mL (10-122)
[2025-01-17 18:48] LABS: Folate 11.3 ng/mL (> or = 4.0); Vitamin B12 187 pg/mL (200-900)
== END 2025-01-17 14:07 | disposition home or self-care (01) ==
LOC: HO.HKASLDS 14:06
PROVIDERS: PCP Internal Medicine; Visit Provider Physician Assistant Medical
DX: R79.89 Other specified abnormal findings of blood chemistry (principal); R53.83 Other fatigue; D64.9 Anemia, unspecified; G47.9 Sleep disorder, unspecified
CPT/HCPCS: 36415; 82306; 82607; 82728; 82746; 83090; 83540; 83921; 84443

== ENCOUNTER 2025-01-18 16:45 | Emergency (ER) | payer OTHER, SELFPAY ==
[2025-01-18 16:59] VITALS: BP 110/54; PULSE 94; RESP 18; TEMP 36.6; O2SAT 100; BMI 21.9
--- NOTE | 2025-01-18 17:01 | ED.UPPEXIN ---
HPI - Extremity Injury (Upper) General Chief Complaint: Upper Respiratory Symptoms Stated Complaint: Ear ache/Flu like symptoms Time Seen by Provider: 01/18/25 17:42 Source: patient and family Mode of arrival: ambulatory Limitations: no limitations History of Present Illness ED Provider: Wanda Mendes APRN HPI narrative: 24 yo female with history of PTSD, non epileptic seizures, vaso-vagal syncope, anemia, arthritis here with complaints of 4 days of sore throat, abdominal pain, cough, nasal congestion, chills. No fever, vomiting, diarrhea, skin rash, diff breathing, chest pain. No recent travel. No sick contact. Related Data Home Medications ?Medication ?Instructions ?Recorded ?Confirmed adapalene 0.1 % topical gel 1 appl topical BEDTIME 09/12/24 12/03/24 benzoyl peroxide 2.5 % topical 1 appl topical BID 09/12/24 12/03/24 cleanser triamcinolone acetonide 0.1 % 1 appl topical BID 09/12/24 12/03/24 topical cream albuterol sulfate 90 mcg/actuation 2 puff inhalation Q6H PRN dyspnea 12/03/24 12/03/24 aerosol inhaler (Ventolin HFA) medroxyprogesterone 150 mg/mL 150 mg IM [id number] 12/03/24 12/03/24 intramuscular suspension (Depo-Provera) gabapentin 300 mg capsule 300 mg PO BID 01/02/25 Previous Rx's ?Medication ?Instructions ?Recorded ondansetron 4 mg disintegrating 4 mg PO Q8H 3 days #9 tabs 06/18/23 tablet vxmsovvpoq-pqrdmerrhvfus-edpezjac 1 cap PO TID PRN pain #14 caps 06/19/23 50 mg-300 mg-40 mg capsule (Fioricet) acetaminophen 500 mg capsule 1,000 mg (2 x 500 mg) PO .q8 PRN 11/01/24 fever or pain #30 caps ibuprofen 600 mg tablet 600 mg PO Q8H PRN fever or pain 11/01/24 #30 tabs cephalexin 500 mg capsule 500 mg PO TID 7 days #21 caps 11/22/24 cholecalciferol (vitamin D3) 25 25 mcg PO DAILY insufficient 12/27/24 mcg (1,000 unit) capsule vitamin D 3 months #90 caps acetaminophen 325 mg capsule 650 mg (2 x 325 mg) PO Q6H PRN 10/24/25 pain #30 caps Allergies Allergy/AdvReac Type Severity Reaction Status Date / Time paper tape Allergy Intermediate Rash Uncoded 01/18/25 17:01 Review of Systems Review of Systems: Yes all other systems are reviewed and are negative Constitutional: Constitutional: Reports no additional constitutional complaints, Denies body ache(s), Reports chills, Denies fever(s), Denies headache(s) and Denies weakness Eyes: Eyes: Reports no additional eye complaints and Denies change in vision ENT: Reports system reviewed and no additional complaints, except as documented, Denies dizziness, Denies headache(s), Reports nasal congestion, Denies nasal discharge, Denies neck pain and Reports sore throat Cardiovascular: Cardiovascular: Reports no additional cardiovascular complaints, Denies chest pain, Denies leg edema and Denies dyspnea Respiratory: Respiratory: Reports no additional respiratory complaints, Reports cough and Denies dyspnea Gastrointestinal: Gastrointestinal: Reports no additional gastrointestinal complaints, Reports abdominal pain, Denies diarrhea, Denies nausea and Denies vomiting Genitourinary: Genitourinary: Reports no additional female genitourinary complaints and Denies urinary incontinence Musculoskeletal: Musculoskeletal: Reports no additional musculoskeletal complaints, Denies back pain, Denies arthralgias, Denies joint swelling, Denies neck pain, Denies numbness and Denies tingling Integumentary/Breasts: Skin/Breast: Reports system reviewed and no additional complaints, except as docu and Denies rash Neurologic: Reports system reviewed and no additional complaints, except as documented, Denies Abnormal speech present, Denies dizziness, Denies headache(s), Denies numbness, Denies tingling and Denies weakness [facility] Past Medical History Attestation statement: The following information was validated with the patient. Source: old records reviewed and nursing notes reviewed Medical History Somatization disorder Personality disorder Conversion disorder with seizures or convulsions Seizure Vasovagal syncope Syncope Sinus tachycardia PTSD (post-traumatic stress disorder) Moderate intellectual disabilities Migraine without status migrainosus, not intractable Menorrhagia with regular cycle Hypotension Insomnia Anxiety Migraine Family History Family History Mother Headache Social History Social History Alcohol intake: never Patient Tobacco Use Status: Never used Tobacco e-Cigarette/Vaping Use: Never Used Physical Exam Vital Signs: Vital Signs: Last Vital Signs Temp 97.8 F 01/18/25 16:59 Pulse 94 01/18/25 16:59 Resp 18 01/18/25 16:59 BP 110/54 L 01/18/25 16:59 Pulse Ox 100 01/18/25 16:59 O2 Del Method Room Air 01/18/25 16:59 BMI result Body Mass Index 21.9 Const: General: cooperative, healthy appearing, comfortable and no acute distress Orientation/consciousness: patient oriented x3 Limitations: no limitations HEENT: Head: Yes normal to inspection Ears: hearing grossly normal bilaterally and TM's normal bilaterally General nose exam: Normal external nose present Face and sinus: Yes normal facial exam Mouth: Normal oral and palatal mucosa present Throat: Yes posterior oropharynx normal, Yes tonsils normal and Yes uvula midline Eyes: General: appearance normal, both eyes and all related structures Pupils: Equal, round and reactive pupils present Neck: Neck: Yes normal visual inspection, Yes full ROM, Yes no lymphadenopathy and Yes no meningeal signs Chest: Chest palpation & inspection: normal inspection of the chest Resp: Effort & Inspection: normal respiratory effort Auscultation: clear to auscultation bilaterally Cardio: Rate: regular rate Rhythm: regular rhythm Peripheral pulses: Peripheral pulses 2+ throughout GI: Inspection: Yes normal to inspection Palpation (GI): Soft to palpation and nontender Auscultation: normal bowel sounds Back/Spine/Pelvis: Thoracic/Lumbar Spine: thoracic and lumbar spine normal to inspection Skin: General skin exam: no rashes or lesions noted Neuro: General: patient oriented x3, no meningeal signs, no focal motor deficits and normal sensation to monofilament Cranial nerves: Yes Equal, round and reactive pupils present Cognition (Neuro): normal cognition Speech: No Abnormal speech present Gait exam (Neuro): Normal gait present Motor exam (neuro): 5/5 motor strength present throughout Extrem: General: Yes normal to inspection, Yes no calf tenderness and Yes normal gait Course Course Course Narrative: 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 Defer additional HPI, ROS and PE to primary provider 24-year-old female here with flu like symptoms. Will send testing for strep, inflluenza, covid VSS Medical Decision Making Medical Decision Making MDM Narrative: 24 yo female with history of PTSD, non epileptic seizures, vaso-vagal syncope, anemia, arthritis here with complaints of 4 days of sore throat, abdominal pain, cough, nasal congestion, chills. No fever, vomiting, diarrhea, skin rash, diff breathing, chest pain. No recent travel. No sick contact. Normal exam VSS Will send strep testing, influenza, covid testing Differential Diagnosis Differential Diagnoses: The differential diagnosis associated with the presentation includes influenza, strep pharyngitis, viral syndrome exam not consistent with epiglottitis, Parag's angina, VOLLEYBALL COMMENTATOR, RPA Admission/Observation Consideration of admission/observation: Escalation of care including admission/observation considered Lab Data [facility] Lab Attestation statement: I reviewed the patient's lab results. Labs: Lab Results 01/18/25 Range/Units 17:13 COVID-19 (CHIKA) Negative (Negative) COVID-19 Clin Com See Note Influenza Type A (TEMO) Negative (Negative) Influenza Type B (TEMO) Negative (Negative) Influenza A & B Note See Note S. pyogenes GrpA TEMO Negative (Negative) Independent Historian Clinical information obtained from an independent historian. History obtained from or confirmed by: Spouse Discharge Plan Discharge Clinical Impression: Viral infection Patient Disposition: Home, Self-Care Instructions: Viral Syndrome (ED) Additional Instructions: Testing for flu, covid and strep are negative Alternate motrin/tylenol for pain or fever as needed Prescriptions: New acetaminophen 325 mg capsule 650 mg PO Q6H PRN (Reason: pain) Qty: 30 0RF No Action cholecalciferol (vitamin D3) 25 mcg (1,000 unit) capsule 25 mcg PO DAILY MDD 1000 unit 90 Days Qty: 90 0RF Rx Instructions: take one capsule daily by mouth at bedtime. gabapentin 300 mg capsule 300 mg PO BID cephalexin 500 mg capsule 500 mg PO TID 7 Days Qty: 21 0RF ondansetron 4 mg tablet,disintegrating 4 mg PO Q8H 3 Days Qty: 9 0RF intcofcdep-uctwqsihibhyu-llsy [Fioricet] 50-300-40 mg capsule 1 cap PO TID PRN (Reason: pain) Qty: 14 0RF ibuprofen 600 mg tablet 600 mg PO Q8H PRN (Reason: fever or pain) Qty: 30 0RF acetaminophen 500 mg capsule 1,000 mg PO .q8 PRN (Reason: fever or pain) Qty: 30 0RF triamcinolone acetonide 0.1 % cream 1 appl topical BID adapalene 0.1 % gel 1 appl topical BEDTIME benzoyl peroxide 2.5 % cleanser 1 appl topical BID medroxyprogesterone [Depo-Provera] 150 mg/mL suspension 150 mg IM [id number] albuterol sulfate [Ventolin HFA] 90 mcg/actuation HFA aerosol inhaler 2 puff inhalation Q6H PRN (Reason: dyspnea) Referrals: Latesha France MD [Primary Care Provider, Internal Medicine] Print Language: Danish
[2025-01-18 17:39] LABS: COVID-19 Test Negative (Negative); IDNOW Serial# 08D9AD1C; IDNOW Serial# 55D5AD1C; IDNOW Serial# 58CA691E; Influenza B2 Negative (Negative); Strep A Nucleic Acid Negative (Negative)
[2025-01-18 18:16] VITALS: BP 110/54; PULSE 94; RESP 18; TEMP 36.6; O2SAT 100
--- OUTSIDE RECORDS SUMMARY | 2025-01-18 18:18 | XMS_ITS | Encounter Summary ---
Author Organization [facility] Address [address] [place] [address] Care Team Providers Care Jacker Feeder Name Role Phone Latesha France MD Primary Care Provider Reason for Visit * Reason Onset Date Comments Passing Out 01/11/2025 Encounter Details Date Type Department Care Team ([facility] Contact Info) Description 01/11/2025 Telephone [facility] Cardiology [facility] [address] [place] [address] [place] [phone] Maria Eugenia Mccartney MD [address] [place] [address] Dr Romero [address] [place] [phone] Social History Tobacco Use Types Packs/Day Years [...] She would like a call back at [phone]. documented in this encounter Plan of Treatment Upcoming Encounters Date Type Department Care Team (Late st Contact Info) Description 01/22/2025 3:00 PM EDT Treatment [address] [phone] Holden Toribio, HEATING ELEMENT WINDER 01/23/2025 4:00 PM EDT Appointment Radiology Department - [address] [phone] 01/29/2025 3:30 PM EST Treatment [address] [phone] Breana Quintanilla, PT 02/04/2025 1:00 PM EST Clinical Support Obstetrics and Gynecology - [address] [phone] 02/05/2025 3:00 PM EST Treatment [address] [phone] Holden Toribio, HEATING ELEMENT WINDER 02/12/2025 3:00 PM EST Treatment [address] [phone] Holden Toribio, HEATING ELEMENT WINDER 02/19/2025 4:00 PM EST Treatment [facility] [address] [phone] Breana Quintanilla, PT 02/26/2025 4:30 PM EST Treatment [facility] [address] [phone] Breana Quintanilla, PT 03/22/2025 3:00 PM EST Office Visit Adult Medicine [facility] [address] [place] [address] Latesha France MD [address] [place], [place] 06/13/2025 2:30 PM EDT Office Visit Pulmonology [facility] [address] [phone] Jennifer Kaufman MD [address] [address] documented as of this encounter Goals Goal [...] day. added in this encounter Care Teams Jacker Feeder Relationship Specialty Start Date End Date Latesha France MD [address] [place], [place] PCP - General Internal Medicine 02/13/24 documented as of this encounter
--- OUTSIDE RECORDS SUMMARY | 2025-01-18 18:18 | XMS_ITS | Encounter Summary ---
Author Organization [facility] Address [address] [place] [address] Care Team Providers Care Pit Hoist Operator Name Role Phone Latesha France MD Primary Care Provider [phone] Reason for Visit * Reason Onset Date Comments Shortness of Breath 12/17/2024 Request For Order(s) 12/17/2024 Encounter Details Date Type Department Care Team (Late st Contact Info) Description 12/17/2024 Telephone Adult Medicine [facility] [address] [place] [address] Latesha France MD [address] [place] [address] Social History Tobacco Use Types Packs/Day Years [...] was told CT chest scan ordered at [facility] by Dr. France on 11/30 was denied by her insurance. Is requesting new order that will be covered be placed and would like to speak to nurse regarding ongoing symptoms. documented in this encounter Plan of Treatment Upcoming Encounters Date Type Department Care Team (Late st Contact Info) Description 01/22/2025 3:00 PM EDT Treatment [address] [phone] Holden Toribio, GUNSTOCK SPRAY UNIT ADJUSTER 01/23/2025 4:00 PM EDT Appointment Radiology Department - [address] [phone] 01/29/2025 3:30 PM EST Treatment [address] [phone] Breana Quintanilla, PT 02/04/2025 1:00 PM EST Clinical Support Obstetrics and Gynecology - [address] [phone] 02/05/2025 3:[address] [facility] [address] [phone] Holden Toribio, GUNSTOCK SPRAY UNIT ADJUSTER 02/12/2025 3:[address] [facility] [address] [phone] Holden Toribio, GUNSTOCK SPRAY UNIT ADJUSTER 02/19/2025 4:[address] [facility] [address] [phone] Breana Quintanilla, PT 02/26/2025 4:[address] [facility] [address] [phone] Breana Quintanilla, PT 03/22/2025 3:00 PM EST Office Visit Adult Medicine [facility] [address] [place] [phone] Latesha France MD [address] [place] [address] 06/13/2025 2:30 PM EDT Office Visit Pulmonology [facility] [address] [phone] Jennifer Kaufman MD [address] [address] documented as of this encounter Goals Goal [...] on filedocumented in this encounter Care Teams Pit Hoist Operator Relationship Specialty Start Date End Date Latesha France MD [address] [place] [address] PCP - General Internal Medicine 02/13/24 documented as of this encounter
--- OUTSIDE RECORDS SUMMARY | 2025-01-18 18:18 | XMS_ITS | Encounter Summary ---
Author Organization [facility] Address [address] [place] [address] Care Team Providers Care Hand Ii Blocker Name Role Phone Latesha France MD Primary Care Provider [phone]- [phone] Reason for Visit * Reason Onset Date Comments Med Refill 01/25/2024 Disregard put in to system in older [facility] for refill Encounter Details Date Type Department Care Team (Late Contact Info) Description 01/25/2024 Telephone Adult [facility] [address] [place] [phone] Latesha France MD [address] [place] [address] Social History Tobacco Use Types Packs/Day Years [...] Info) Description 01/22/2025 3:00 PM EDT Treatment [address] [phone] Holden Toribio, MUSIC THEORY PROFESSOR 01/23/2025 4:00 PM EDT Appointment Radiology Department - [address] [phone] 01/29/2025 3:30 PM EST Treatment [address] [phone] Breana Quintanilla, PT 02/04/2025 1:00 PM EST Clinical Support Obstetrics and Gynecology - [address] [phone] 02/05/2025 3:00 PM EST Treatment [address] [phone] Holden Toribio, MUSIC THEORY PROFESSOR 02/12/2025 3:00 PM EST Treatment [address] [phone] Holden Toribio, MUSIC THEORY PROFESSOR 02/19/2025 4:00 PM EST Treatment [address] [phone] Breana Quintanilla, PT 02/26/2025 4:30 PM EST Treatment [address] [address] Breana Quintanilla, PT 03/22/2025 3:00 PM EST Office Visit Adult Medicine [place] - [address] [phone] Latesha France MD [address] [place] [address] 06/13/2025 2:30 PM EDT Office Visit Pulmonology - [address] [phone] Jennifer Kaufman MD [address] [address] documented as of this encounter Visit Diagnoses Not on filedocumented in this encounter Additional Health Concerns Infection Onset Date Last Indicated Resolved Time Respiratory Rule-Out 05/22/2024 05/22/2024 025 7:00 PM EST C. difficile Rule-Out 05/23/2024 05/22/20242024 4:54 PM EST documented as of this encounter Care Teams Hand Ii Blocker Relationship Specialty Start Date End Date Latesha France MD [address] [place] [address] PCP - General Internal Medicine 02/13/24 documented as of this encounter
--- OUTSIDE RECORDS SUMMARY | 2025-01-18 18:18 | XMS_ITS | Encounter Summary ---
Author Organization [facility] Address [address] [place] [address] Care Team Providers Care Electro Optics Engineer Name Role Phone Latesha France MD Primary Care Provider [phone] Reason for Visit * Reason Onset Date Comments Dizziness 01/10/2025 Nausea 01/10/2025 Abdominal Pain 01/10/2025 Encounter Details Date Type Department Care Team (Late st Contact Info) Description 01/10/2025 Telephone Adult Medicine [facility] [address] [place] [address] Latesha France MD [address] [place] [address] Social History Tobacco Use Types Packs/Day Years [...] a day Was seen by Sebasti[facility] at [facility] she eulogio call them and let [...] recently to another state outside of [place], [place], [place], [place], [place], [place], [place]? no o If yes, did you quarantine [...] yes, gather 3rd democrat insurance information Third Alliance Party Information: not applicable PCP: Latesha France MD Payor: [employer] PLAN / Plan: [employer] MEDICAID / Product Type: *No Product type* / documented in this encounter Plan of Treatment Upcoming Encounters Date Type Department Care Team (Late st Contact Info) Description 01/22/2025 3:00 PM EDT Treatment [address] [phone] Holden Toribio, DIALYSIS RN 01/23/2025 4:00 PM EDT Appointment Radiology Department - [address] [phone] 01/29/2025 3:30 PM EST Treatment [address] [phone] Breana Quintanilla, PT 02/04/2025 1:00 PM EST Clinical Support Obstetrics and Gynecology - [address] [phone] 02/05/2025 3:00 PM EST Treatment [address] [address] Holden Toribio, DIALYSIS RN 02/12/2025 3:00 PM EST Treatment [address] [phone] Holden Toribio, DIALYSIS RN 02/19/2025 4:00 PM EST Treatment [address] [phone] Breana Quintanilla, PT 02/26/2025 4:30 PM EST Treatment [address] [phone] Breana Quintanilla, PT 03/22/2025 3:00 PM EST Office Visit Adult Medicine [place] - [address] [phone] Latesha France MD [address] [place] [address] 06/13/2025 2:30 PM EDT Office Visit Pulmonology - [place] 175 [facility] [address] [place] [phone] Jennifer Kaufman MD 175 [facility] [address] [place] [address] documented as of this encounter Goals Goal [...] on filedocumented in this encounter Care Teams Electro Optics Engineer Relationship Specialty Start Date End Date Latesha France MD [address] [place] [address] PCP - General Internal Medicine 02/13/24 documented as of this encounter
--- OUTSIDE RECORDS SUMMARY | 2025-01-18 18:18 | XMS_ITS | Encounter Summary ---
Author Organization [facility] Address [address] [place] [address] Care Team Providers Care Shafting Cleaner Name Role Phone Latesha France MD Primary Care Provider Encounter Details Date Type Department Care Team (Late Contact Info) Description 01/15/2025 [facility] [address] [place] [phone] Latesha France MD [address] [place] [address] Social History Tobacco Use Types Packs/Day Years [...] Info) Description 01/22/2025 3:00 PM EDT Treatment [address] [phone] Holden Toribio PTA 01/23/2025 4:00 PM EDT Appointment Radiology Department - [address] [phone] 01/29/2025 3:30 PM EST Treatment [address] [phone] Breana Quintanilla, PT 02/04/2025 1:00 PM EST Clinical Support Obstetrics and Gynecology - [address] [phone] 02/05/2025 3:00 PM EST Treatment [address] [phone] Holden Toribio, TOBACCO STEMMER MACHINE 02/12/2025 3:00 PM EST Treatment [address] [phone] Holden Toribio, TOBACCO STEMMER MACHINE 02/19/2025 4:00 PM EST Treatment [address] [phone] Breana Quintanilla, PT 02/26/2025 4:30 PM EST Treatment [address] [phone] Breana Quintanilla, PT 03/22/2025 3:00 PM EST Office Visit Adult Medicine [address] [phone] Latesha France MD [address] [place] [address] 06/13/2025 2:30 PM EDT Office Visit Pulmonology [address] [phone] Jennifer Kaufman MD [address] [address] documented as of this encounter Goals Goal [...] on filedocumented in this encounter Care Teams Shafting Cleaner Relationship Specialty Start Date End Date Latesha France MD [address] [place] [address] PCP - General Internal Medicine 02/13/24 documented as of this encounter
--- OUTSIDE RECORDS SUMMARY | 2025-01-18 18:18 | XMS_ITS | Encounter Summary ---
Author Organization [facility] Address [address] [place] [address] Care Team Providers Care Retort Cooler Name Role Phone Latesha France MD Primary Care Provider [phone] Reason for Visit * Reason Onset Date Comments Cough 04/02/2024 Encounter Details Date Type Department Care Team (Late st Contact Info) Description 04/02/2024 Nurse Triage Adult Medicine [address] [phone] Latesha France MD [address] [place] [address] Social History Tobacco Use Types Packs/Day Years [...] recently to another state outside of [place], [place], [place], [place], [place], [place], [place]? no o If yes, did you quarantine [...] libertarian insurance information Third Green Party Information: n/a PCP: Latesha France MD Payor: [employer] / Plan: [facility] MEDICAID / Product Type: *No Product type* / documented in this encounter Plan of Treatment Upcoming Encounters Date Type Department Care Team (Late st Contact Info) Description 01/22/2025 3:00 PM EDT Treatment [address] [address] Holden Toribio, MACARONI PRESS OPERATOR 01/23/2025 4:00 PM EDT Appointment Radiology Department - [address] [phone] 01/29/2025 3:30 PM EST Treatment [address] [phone] Breana Quintanilla, PT 02/04/2025 1:00 PM EST Clinical Support Obstetrics and Gynecology - [address] [phone] 02/05/2025 3:00 PM EST Treatment [address] [phone] Holden Toribio, MACARONI PRESS OPERATOR 02/12/2025 3:00 PM EST Treatment [address] [address] Holden Toribio, MACARONI PRESS OPERATOR 02/19/2025 4:00 PM EST Treatment [address] [address] Breana Quintanilla, PT 02/26/2025 4:30 PM EST Treatment [address] [phone] Breana Quintanilla, PT 03/22/2025 3:00 PM EST Office Visit Adult Medicine [place] - [address] [phone] Latesha France MD [address] [place] [address] 06/13/2025 2:30 PM EDT Office Visit Pulmonology - [place] 175 [facility] [address] [place] [phone] Jennifer Kaufman MD 175 [facility] [address] [place] [address] documented as of this encounter Visit Diagnoses Not on filedocumented in this encounter Additional Health Concerns Infection Onset Date Last Indicated Resolved Time Respiratory Rule-Out 05/22/2024 05/22/2024 025 7:00 PM EST C. difficile Rule-Out 05/23/2024 05/22/20242024 4:54 PM EST documented as of this encounter Care Teams Retort Cooler Relationship Specialty Start Date End Date Latesha France MD [address] [place] [address] PCP - General Internal Medicine 02/13/24 documented as of this encounter
--- OUTSIDE RECORDS SUMMARY | 2025-01-18 18:18 | XMS_ITS | Encounter Summary ---
Author Organization [facility] Address [address] [place] [address] Care Team Providers Care Rehabilitation Supervisor Name Role Phone Latesha France MD Primary Care Provider +1- [phone] Reason for Visit * Reason Onset Date Comments Abdominal Pain 04/25/2024 Diarrhea 04/25/2024 Encounter Details Date Type Department Care Team (Late st Contact Info) Description 04/25/2024 Nurse Triage Adult Medicine [address] [phone] Latesha France MD [address] [place] [id number] Social History Tobacco Use Types Packs/Day Years [...] recently to another state outside of [place], [place], [place], [place], [place], [place], [place]? no o If yes, did you [...] not applicable PCP: Latesha France MD Payor: [employer] / Plan: [employer] MEDICAID / Product Type: *No Product type* / documented in this encounter Plan of Treatment Upcoming Encounters Date Type Department Care Team (Late st Contact Info) Description 01/22/2025 3:00 PM EDT Treatment [address] [phone] Holden Toribio PTA 01/23/2025 4:00 PM EDT Appointment Radiology Department - [address] [phone] 01/29/2025 3:30 PM EST Treatment [address] [address] Breana Quintanilla, PT 02/04/2025 1:00 PM EST Clinical Support Obstetrics and Gynecology - [address] [phone] 02/05/2025 3:00 PM EST Treatment [address] [phone] Holden Toribio, HOT FRAME TENDER 02/12/2025 3:00 PM EST Treatment [address] [address] Holden Toribio, HOT FRAME TENDER 02/19/2025 4:00 PM EST Treatment [address] [phone] Breana Quintanilla, PT 02/26/2025 4:30 PM EST Treatment [address] [address] Breana Quintanilla, PT 03/22/2025 3:00 PM EST Office Visit Adult Medicine West - [address] [phone] Latesha France MD [address] [place] [address] 06/13/2025 2:30 PM EDT Office Visit Pulmonology - [address] [phone] Jennifer Kaufman MD [address] [phone] documented as of this encounter Visit Diagnoses Not on filedocumented in this encounter Additional Health Concerns Infection Onset Date Last Indicated Resolved Time Respiratory Rule-Out 05/22/2024 05/22/2024 025 7:00 PM EST C. difficile Rule-Out 05/23/2024 05/22/20242024 4:54 PM EST documented as of this encounter Care Teams Rehabilitation Supervisor Relationship Specialty Start Date End Date Latesha France MD [address] [place] [address] PCP - General Internal Medicine 02/13/24 documented as of this encounter
--- OUTSIDE RECORDS SUMMARY | 2025-01-18 18:18 | XMS_ITS | Encounter Summary ---
Author Organization [facility] Address [address] [place] [address] Care Team Providers Care Workers Compensation Claims Examiner Name Role Phone Latesha France MD Primary Care Provider +1- [phone] Reason for Visit * Reason Onset Date Comments Low Back Pain 01/16/2025 Encounter Details Date Type Department Care Team (Late st Contact Info) Description 01/16/2025 Telephone Adult Medicine [address] [phone] Trudi Landaverde RN Social History Tobacco Use [...] agreed Phone # given to u/c in [place], pt will call if she decides on appt tomorrow. She will call back if advice needed documented in this encounter Plan of Treatment Upcoming Encounters Date Type Department Care Team (Late st Contact Info) Description 01/22/2025 3:00 PM EDT Treatment [address] [phone] Holden Toribio, PRESENTATION DESIGNER 01/23/2025 4:00 PM EDT Appointment Radiology Department - [address] [phone] 01/29/2025 3:30 PM EST Treatment [address] [address] Breana Quintanilla, PT 02/04/2025 1:00 PM EST Clinical Support Obstetrics and Gynecology - [address] [phone] 02/05/2025 3:00 PM EST Treatment [address] [address] Holden Toribio, PRESENTATION DESIGNER 02/12/2025 3:00 PM EST Treatment [address] [address] Holden Toribio, PRESENTATION DESIGNER 02/19/2025 4:00 PM EST Treatment [address] [address] Breana Quintanilla, PT 02/26/2025 4:30 PM EST Treatment [address] [address] Breana Quintanilla, PT 03/22/2025 3:00 PM EST Office Visit Adult Medicine [id number] [place] [address] Latesha France MD [address] [facility] [place], [place] 06/13/2025 2:30 PM EDT Office Visit Pulmonology - [place] [address] [phone] Jennifer Kaufman MD [address] [address] documented as of this encounter Goals Goal [...] on filedocumented in this encounter Care Teams Workers Compensation Claims Examiner Relationship Specialty Start Date End Date Latesha France MD 4 [facility] [place] PCP - General Internal Medicine 02/13/24 documented as of this encounter
--- OUTSIDE RECORDS SUMMARY | 2025-01-18 18:18 | XMS_ITS | Encounter Summary ---
Author Organization [facility] Address [address] [place] [address] Care Team Providers Care Pet Supplies Salesperson Name Role Phone Latesha France MD Primary Care Provider +1- [phone] Encounter Details Date Type Department Care Team (Late st Contact Info) Description 07/24/2024 Nurse Triage Adult Medicine [address] [phone] Latesha France MD [address] [place] [address] Social History Tobacco Use Types Packs/Day Years [...] Description 01/22/2025 3:00 PM EDT Treatment [address] [address] Holden Toribio, SLOTS MANAGER 01/23/2025 4:00 PM EDT Appointment Radiology Department - [address] [phone] 01/29/2025 3:30 PM EST Treatment [address] [address] Breana Quintanilla, PT 02/04/2025 1:00 PM EST Clinical Support Obstetrics and Gynecology - [address] [phone] 02/05/2025 3:00 PM EST Treatment [address] [address] Holden Toribio, SLOTS MANAGER 02/12/2025 3:00 PM EST Treatment [address] [address] Holden Toribio, SLOTS MANAGER 02/19/2025 4:00 PM EST Treatment [address] [phone] Breana Quintanilla, PT 02/26/2025 4:30 PM EST Treatment [facility] 175 [facility] [address] [place] [address] Breana Quintanilla, PT 03/22/2025 3:00 PM EST Office Visit Adult Medicine [facility] [address] [place] [address] Latesha France MD [address] [place] [address] 06/13/2025 2:30 PM EDT Office Visit Pulmonology - [place] 175 [facility] [address] [place] [address] Jennifer Kaufman MD 175 [facility] [address] [place] [address] documented as of this encounter Visit Diagnoses Not on filedocumented in this encounter Care Teams Pet Supplies Salesperson Relationship Specialty Start Date End Date Latesha France MD [address] [place] [address] PCP - General Internal Medicine 02/13/24 documented as of this encounter
--- OUTSIDE RECORDS SUMMARY | 2025-01-18 18:18 | XMS_ITS | Clinical Summary ---
Author Organization [facility] [address] [facility] l[address] Address [address] [place] [address] Phone Care Team Providers Care Field Foreman Name Role Phone Latesha France MD Primary Care Provider [phone]- [phone] Allergies No known active allergies Medications fluticasone [...] Care Team Description 01/16/2025 Telephone Adult Medicine [address] [phone] Trudi Landaverde RN 01/15/2025 Results Follow-Up Adult Medicine [address] [phone] Latesha France MD 01/11/2025 Telephone Adult Medicine [address] [phone] Latesha France MD 01/11/2025 Telephone [facility] Cardiology [facility] [address] [place] [phone] Maria Eugenia Mccartney MD 01/10/[address] [phone] Latesha France MD 01/07/[address] [phone] Tayler Mandujano MA 12/31/2024 3:00 PM EDT Evaluation [address] [phone] Bridgett Lockwood, PT Lumbar spondylosis (Primary Dx); Chronic bilateral low back pain, unspecified whether sciatica present 12/31/[address] [phone] Latesha France MD 12/19/2024 3:10 PM EDT Office Visit [facility] [address] [place] [phone] Yamilex Eagle NP Syncope, unspecified syncope type (Primary Dx); Chest pain, unspecified type 12/18/2024 Telephone Infectious Disease - [address] [phone] Daphney Stover MA 12/17/2024 3:00 PM EDT Lab Draw Station - [address] SOB (shortness of breath) 12/17/2024 2:30 PM EDT Office Visit Obstetrics and Gynecology [address] [phone] Sally Kinney CNM Breakthrough bleeding on depo provera (Primary Dx) 12/17/2024 Telephone Adult Medicine [place] [address] [phone] Latesha France MD 12/14/2024 3:30 PM EDT Procedure visit Pulmonology [facility] [address] [phone] SOB (shortness of breath) 12/14/2024 3:00 PM EDT Consult Pulmonology - [place] [address] [phone] Jennifer Kaufman MD SOB (shortness of breath) (Primary Dx); Snoring 12/13/2024 1:44 PM EDT - 12/13/2024 11:59 PM EDT Hospital Encounter [address] [phone] Upper back pain Discharge Disposition: Home or Self Care 12/07/2024 Telephone Adult Medicine [address] [phone] Tayler Mandujano MA 11/30/2024 10:30 AM EDT Office Visit Adult [address] [phone] Latesha France MD Paresthesia of both legs (Primary Dx); Constipation, unspecified constipation type; Loss of consciousness (CMS/HCC V24, CMS/HCC V28); Osteoarthritis of lumbar spine, unspecified spinal osteoarthritis complication status; Low back pain, unspecified back pain laterality, unspecified chronicity, unspecified whether sciatica present; Upper back pain; Rib pain; SOB (shortness of breath); Mitral valve insufficiency, unspecified etiology 11/30/2024 Telephone [facility] - [facility] 154 300 [facility] [address] [place] [phone] Yamilex Eagle NP 11/23/2024 3:14 PM EDT - 11/23/2024 11:59 PM EDT Hospital Encounter [address] [phone] Pain Discharge Disposition: Home or Self Care 11/22/2024 Telephone Obstetrics and Gynecology [address] [phone] Sally Kinney CNM 11/22/2024 Telephone Adult [address] [phone] Latesha France MD 11/20/2024 Telephone Adult [address] [phone] Latesha France MD 11/19/2024 Telephone Obstetrics [address] [phone] Gemini Bazzi CNM 11/15/[address] [phone] Latesha France MD 11/14/2024 Telephone Obstetrics and [address] [phone] Sally Kinney CNM 11/12/2024 1:00 PM EDT Clinical Support Obstetrics and [address] [phone] Encounter for management and injection of depo-Provera (Primary Dx) 11/09/2024 7:20 AM EDT - 11/09/2024 11:59 PM EDT Hospital Encounter [address] [place] [address] Discharge Disposition: Home or Self Care 11/07/2024 Telephone Obstetrics and [address] [phone] Sally Kinney CNM 11/06/2024 8:30 AM EDT Office Visit Adult [address] [phone] Latesha France MD Enlarged tonsils (Primary Dx); Sore throat; Localized swelling on left hand 11/05/2024 Telephone Obstetrics and Gynecology [address] [phone] Sally Kinney CNM 11/02/2024 Telephone Adult [address] [phone] Latesha France MD 11/01/[address] [phone] Latesha France MD 10/31/2024 1:39 PM EDT - 10/31/2024 11:59 PM EDT Hospital Encounter XRAY [address] [phone] SOB (shortness of breath) Discharge Disposition: Home or Self Care 10/31/2024 1:00 PM EDT Office Visit [address] [phone] Latesha France MD Psychogenic nonepileptic seizure (Primary Dx); Vitamin D deficiency; SOB (shortness of breath) 10/29/[address] [phone] Latesha France MD 10/26/2024 Telephone [facility] Associates - [address] [place] [address] Maria Eugenia Mccartney MD 10/26/2024 Telephone Adult [address] [phone] Latesha France MD 10/25/2024 Telephone Adult [address] [phone] Latesha France MD 10/24/2024 Telephone Adult [address] [phone] Latesha France MD 10/22/2024 Telephone Adult Medicine [address] [phone] Latesha France MD 10/19/2024 Telephone Adult Medicine [address] [phone] Latesha France MD 10/18/2024 Telephone Adult Medicine [address] [phone] Latesha France MD from Last 3 Months Immunizations Immunization Administration [...] Info) Description 01/22/2025 3:00 PM EDT Treatment [address] [phone] Holden Toribio, INSIGHT DIRECTOR 01/23/2025 4:00 PM EDT Appointment Radiology Department - [address] [phone] 01/29/2025 3:30 PM EST Treatment [address] [phone] Breana Quintanilla, PT 02/04/2025 1:00 PM EST Clinical Support Obstetrics and Gynecology - [address] [phone] 02/05/2025 3:00 PM EST Treatment [address] [phone] Holden Toribio, INSIGHT DIRECTOR 02/12/2025 3:00 PM EST Treatment [address] [phone] Holden Toribio, INSIGHT DIRECTOR 02/19/2025 4:00 PM EST Treatment [address] [phone] Breana Quintanilla, PT 02/26/2025 4:30 PM EST Treatment [address] [phone] Breana Quintanilla, PT 03/22/2025 3:00 PM EST Office Visit Adult Medicine [facility] [address] [place] [phone] Latesha France MD [address] [place] [address] 06/13/2025 2:30 PM EDT Office Visit Pulmonology - [place] 175 [facility] [address] [place] [phone] Jennifer Kaufman MD 175 [facility] 200 [place] [address] Health Maintenance Due Date Last Done Comments [...] pain XR LUMBAR SPINE 4+ VIEWS Routine 11/23/2024 3:[address] ABDOMEN PELVIS [...] (shortness of breath) INTERFERON GAMMA MITOGEN Routine 10/31/2024 1:39 PM EDT SOB (shortness [...] 1:39 PM EDT SOB (shortness of breath) LIPID PANEL WITH REFLEX TO DIRECT LDL [...] LAB CHEMISTRY METHOD 01/09/2025 6:40 PM EDT [facility] Blood Venous blood specimen / Unknown Venipuncture / Unknown 01/09/2025 3:18 PM EDT 01/09/2025 3:18 PM EDT Latesha France MD LAB BLOOD ORDERABLES Final Result [facility] [address] [place] [address], * External Neurology Report (12/25/2024) us Provider [facility] NEUROLOGY ORDERABLES Fin al Result * External Neurology Report (12/24/2024) us Provider [employer] [facility] NEUROLOGY ORDERABLES Fin al Result * Trichomonas vaginalis antigen (12/17/2024 3:13 PM EDT) Trichomonas vaginalis Negative Negative 12/17/2024 7:16 PM EDT [facility] Swab Vaginal structure / Unknown Non-blood Collection / Unknown 12/17/2024 3:13 PM EDT 12/17/2024 3:13 PM EDT us Sally ALLEN LAB MICROBIOLOGY - GENERAL ORDE RABLES Final Result Performing Organization Address [facility]/ZIP Co de Phone Number [facility] [address] [place] [address], [place] [phone] * Chlamydia trachomatis and Neisseria gonorrhoeae molecular study (12/17/2024 3:13 PM EDT) Neisseria gonorrhoeae PCR Negative Negative LAB MOLECULAR DIAGNOSTICS METHOD 12/18/2024 9:04 AM EDT [facility] Chlamydia trachomatis PCR Negative Negative LAB MOLECULAR DIAGNOSTICS METHOD 12/18/2024 9:04 AM EDT [facility] Swab Cervix uteri structure / Unknown Non-blood Collection / Unknown 12/17/2024 3:13 PM EDT 12/17/2024 3:13 PM EDT us Sally ALLEN LAB MICROBIOLOGY - GENERAL ORDE RABLES Final Result Performing Organization Address [facility] Co de Phone Number [facility] [address] [place] [address], [place] [phone] * Culture urine (12/17/2024 3:13 PM EDT) Culture, Urine <10,000 CFU/mL gram negative bacilli, insignificant count, no further workup 12/18/2024 1:42 PM EDT [facility] Urine Urine specimen obtained by clean catch procedure / Unknown Non-blood Collection / Unknown 12/17/2024 3:13 PM EDT 12/17/2024 3:13 PM EDT us Sally ALLEN LAB MICROBIOLOGY - GENERAL ORDE RABLES Final Result Performing Organization Address City/[facility]/ZIP Co de Phone Number [facility] [address] [place] [address], * (ABNORMAL) CBC auto differential (12/17/2024 3:12 PM EDT) [facility] Signature WBC 7.8 4.8 - 10.8 K/mcL LAB HEMETOLOGY METHOD 12/17/2024 4:26 PM EDT [facility] RBC 4.50 3.80 - 4.80 M/mcL LAB HEMETOLOGY METHOD 12/17/2024 4:26 PM EDT [facility] Hemoglobin 13.5 11.5 - 16.0 g/dL LAB HEMETOLOGY METHOD 12/17/2024 4:26 PM EDT [facility] Hematocrit 39.3 35.0 - 47.0 % LAB HEMETOLOGY METHOD 12/17/2024 4:26 PM EDT [facility] MCV 87.9 79.0 - 98.0 FL LAB HEMETOLOGY METHOD 12/17/2024 4:26 PM EDT [facility] MCH 30.2 27.0 - 32.0 pcg LAB HEMETOLOGY METHOD 12/17/2024 4:26 PM EDT [facility] MCHC 34.4 32.0 - 37.0 g/dL LAB HEMETOLOGY METHOD 12/17/2024 4:26 PM EDT [facility] RDW 11.8 11.0 - 15.0 % LAB HEMETOLOGY METHOD 12/17/2024 4:26 PM EDT [facility] Platelets 277 130 - 400 K/mcL LAB HEMETOLOGY METHOD 12/17/2024 4:26 PM EDT [facility] MPV 10.6 7.0 - 11.0 FL LAB HEMETOLOGY METHOD 12/17/2024 4:26 PM EDT [facility] NRBC 0.0 <1.0 % LAB HEMETOLOGY METHOD 12/17/2024 4:26 PM [facility] NRBC Absolute 0.00 <0.10 K/mcL LAB HEMETOLOGY METHOD 12/17/2024 4:26 PM [facility] Neutrophils Relative 56.9 % LAB HEMETOLOGY METHOD 12/17/2024 4:26 PM [facility] Lymphocytes Relative 28.1 % LAB HEMETOLOGY METHOD 12/17/2024 4:26 PM [facility] Monocytes Relative 7.5 % LAB HEMETOLOGY METHOD 12/17/2024 4:26 PM [facility] Eosinophils Relative 7.1 % LAB HEMETOLOGY METHOD 12/17/2024 4:26 PM [facility] Basophils Relative 0.3 % LAB HEMETOLOGY METHOD 12/17/2024 4:26 PM [facility] Immature Granulocytes Relative 0.1 % LAB HEMETOLOGY METHOD 12/17/2024 4:26 PM [facility] Neutrophils Absolute 4.46 1.50 - 7.00 K/mcL LAB HEMETOLOGY METHOD 12/17/2024 4:26 PM [facility] Lymphocytes Absolute 2.20 1.00 - 5.00 K/mcL LAB HEMETOLOGY METHOD 12/17/2024 4:26 PM [facility] Monocytes Absolute 0.59 0.20 - 1.00 K/mcL LAB HEMETOLOGY METHOD 12/17/2024 4:26 PM [facility] Eosinophils Absolute 0.56(H) 0.00 - 0.50 K/mcL LAB HEMETOLOGY METHOD 12/17/2024 4:26 PM [facility] Basophils Absolute 0.02 0.00 - 0.20 K/mcL LAB HEMETOLOGY METHOD 12/17/2024 4:26 PM EDT [facility] Immature Granulocytes Absolute 0.01 0.00 - 0.03 K/mcL LAB HEMETOLOGY METHOD 12/17/2024 4:26 PM EDT [facility] Blood Venous blood specimen / Unknown Venipuncture / Unknown 12/17/2024 3:12 PM EDT 12/17/2024 3:12 PM EDT Jennifer Kaufman MD LAB BLOOD ORDERABLES Final Resul t Performing Organization Address [facility] Co de Phone Number [facility] [address] [place] [address], [place] [phone] * D-Dimer (12/17/2024 3:12 PM EDT) D-Dimer, Quant (D-DU) <150 <=230 ng/mL DDU LAB COAGULATION METHOD 12/17/2024 4:34 PM EDT [facility] Blood Venous blood specimen / Unknown Venipuncture / Unknown 12/17/2024 3:12 PM EDT 12/17/2024 3:12 PM EDT Narrative [facility] - 12/17/2024 4:34 PM EDT D-Dimer <230 ng/mL (D-Dimer units) is the threshold for exclusion of DVT/PE. D-Dimer may be elevated in: Critically ill, severely infected, trauma patients, DIC, acute CVA, acute SC, unstable angina, AF, old age, , and smoking. D-Dimer may be decreased with: Initiation of heparin therapy and oral anticoagulants. us Jennifer Kaufman MD LAB BLOOD ORDERABLES Final Resul t Performing Organization Address [facility]/ZIP Co de Phone Number [facility] [address] [place] [address], [place] [phone] * Pulmonary function testing: Nitric Oxide Gas [...] Signed Date: 12/13/2024 18:47 ET Workstation ID: [id number] Transcribed By: Self Edit Transcribed Date: 12/13/2024 [...] Signed Date: 12/13/2024 18:47 ET Workstation ID: [id number] Transcribed By: Self Edit Transcribed Date: 12/13/2024 [...] Signed Date: 11/23/2024 23:39 ET Workstation ID: [id number] Transcribed By: Self Edit Transcribed Date: 11/23/2024 [...] Signed Date: 11/23/2024 23:39 ET Workstation ID: [id number] Transcribed By: Self Edit Transcribed Date: 11/23/2024 [...] from the original result were not included. [facility] [address] [place] [id number] Pulmonary Functions Report Date of service: 11/09/24 [facility] Swab Structure of anterior region of neck / Unknown Non-blood Collection / Unknown 11/06/2024 9:13 AM EDT 11/06/2024 9:13 AM EDT Latesha France MD LAB MICROBIOLOGY - GENERAL ORDERABLES Final Result Performing Organization Address City/State/[facility] Co de Phone Number [facility] [address] [place] [address], [place] [phone] * XR Chest 2 Views (10/31/2024 1:52 PM EDT) Anatomical Region Laterality Modality Body Radiographic Domonique ging 10/31/2024 6:17 PM EDT Impressions 10/31/2024 6:17 PM EDT No acute cardiopulmonary process. -------- FINAL REPORT -------- Dictated By: Courtney Prakash Dictated Date: 10/31/2024 18:17 ET Assigned Physician: Courtney Prakash Reviewed and Electronically Signed By: Courtney Prakash Signed Date: 10/31/2024 18:17 ET Workstation ID: [id number] Transcribed By: Self Edit Transcribed Date: 10/31/2024 [...] Signed Date: 10/31/2024 18:17 ET Workstation ID: [id number] Transcribed By: Self Edit Transcribed Date: 10/31/2024 18:17 ET Latesha France MD IMG XR PROCEDURES Final Res ult * Interferon gamma interpretation (10/31/2024 1:39 PM EDT) [facility] Signature Quantiferon Plus Interpretation Negative Negative LAB CHEMISTRY METHOD 11/02/2024 11:18 AM EDT [facility] Blood Venous blood specimen / Unknown Venipuncture / Unknown 10/31/2024 1:39 PM EDT 10/31/2024 1:39 PM EDT Latesha France MD LAB BLOOD ORDERABLES Final Result Performing Organization Address [facility]/State/ZIP Co de Phone Number [facility] [address] [place] [address], [place] [phone] * Interferon gamma antigen 2 (10/31/2024 1:39 PM EDT) Blood Venous blood specimen / Unknown Venipuncture / Unknown 10/31/2024 1:39 PM EDT 10/31/2024 1:39 PM EDT us Latesha France MD LAB BLOOD ORDERABLES Final Result Performing Organization Address City/[facility]/ZIP Co de Phone Number [facility] [address] [place] [address], [place] [phone] * Interferon gamma antigen 1 (10/31/2024 1:39 PM EDT) Blood Venous blood specimen / Unknown Venipuncture / Unknown 10/31/2024 1:39 PM EDT 10/31/2024 1:39 PM EDT us Latesha France MD LAB BLOOD ORDERABLES Final Result Performing Organization Address [facility] Co de Phone Number [facility] [address] [place] [address], [place] [phone] * Interferon gamma mitogen (10/31/2024 1:39 PM EDT) Blood Venous blood specimen / Unknown Venipuncture / Unknown 10/31/2024 1:39 PM EDT 10/31/2024 1:39 PM EDT us Latesha France MD LAB BLOOD ORDERABLES Final Result Performing Organization Address [facility]/[place] de Phone Number [facility] [address] [place] [address], [place] [phone] * Interferon gamma NIL (10/31/2024 1:39 PM EDT) Blood Venous blood specimen / Unknown Venipuncture / Unknown 10/31/2024 1:39 PM EDT 10/31/2024 1:39 PM EDT us Latesha France MD LAB BLOOD ORDERABLES Final Result Performing Organization Address [facility]/[place] de Phone Number [facility] [address] [place] [address], [place] [phone] * Myositis panel 3 (10/31/2024 1:39 PM EDT) Dottie-1 Ab <20 <20 Units 11/16/2024 1:10 [...] approved by the Food and Drug Administration. SC-2 Ab Negative Negative 11/16/2024 1:10 PM EDT [...] approved by the Food and Drug Administration. Anti-U1-CLARIFYING PLANT OPERATOR Ab <20 <20 Units 11/16/2024 1:10 PM [...] the Food and Drug Administration. Fibrillarin (U3 CLARIFYING PLANT OPERATOR) Ab Negative Negative 11/16/2024 1:10 PM EDT [facility] Comment: This test was developed and its performance characteristics determined by [facility]. It has not been cleared or approved by the Food and Drug Administration. Interpretation for Anti-Dottie-1, [id number], Anti-MDA-5, Anti-NXP-2, Anti-PM/Scl-100, Anti-SS-A 52 kD, Anti-U1 CLARIFYING PLANT OPERATOR: Negative: <20 Weak Positive: 20 - 39 Moderate Positive: 40 - 80 Strong Positive: >80 . Test Performed by: [facility] [address] [place] [id number] Blood Venous blood specimen / Unknown Venipuncture / Unknown 10/31/2024 1:39 PM EDT 10/31/2024 1:39 PM EDT us Latesha France MD LAB BLOOD ORDERABLES Final Result [facility] [address] [place] [address] * Basic metabolic panel (10/31/2024 1:39 PM EDT) Pathologist [facility] Sodium 136 133 - 145 mmol/L LAB CHEMISTRY METHOD 10/31/2024 4:33 PM EDT [facility] Potassium 4.6 3.5 - 5.5 mmol/L LAB CHEMISTRY METHOD 10/31/2024 4:33 PM T [facility] Chloride 103 96 - 110 mmol/L LAB CHEMISTRY METHOD 10/31/2024 4:33 PM [facility] CO2 29 21 - 32 mmol/L LAB CHEMISTRY METHOD 10/31/2024 4:33 PM [facility] Anion Gap 4 3 - 11 LAB CHEMISTRY METHOD 10/31/2024 4:33 PM EDT [facility] Glucose 76 70 - 100 mg/dL LAB CHEMISTRY METHOD 10/31/2024 4:33 PM [facility] BUN 10 5 - 25 mg/dL LAB CHEMISTRY METHOD 10/31/2024 4:33 PM [facility] Creatinine 0.65 0.50 - 1.10 mg/dL LAB CHEMISTRY METHOD 10/31/2024 4:33 PM [facility] eGFR 127 >=60 mL/min/1. 73m2 LAB CHEMISTRY METHOD 10/31/2024 4:33 PM T [facility] Comment:Calculation based on the Chronic Kidney Disease Epidemiology Collaboration (CKD-EPI) equation refit without adjustment for race. BUN/Creatinine Ratio 15.4 LAB CHEMISTRY METHOD 10/31/2024 4:33 PM [facility] Calcium 9.7 8.5 - 10.5 mg/dL LAB CHEMISTRY METHOD 10/31/2024 4:33 PM T [facility] Blood Venous blood specimen / Unknown Venipuncture / Unknown 10/31/2024 1:39 PM EDT 10/31/2024 1:39 PM EDT us Latesha France MD LAB BLOOD ORDERABLES Final Result [facility] [address] [place] [address], [place] [phone] * Lipid panel with reflex to direct [...] Final Result [facility] [address] [place] [address], * Cervical Cancer Screening: HPV (08/30/2023) Pathologist [facility] Cervical Cancer Screening: HPV abstracted; no interpretation us Historical Provider HEALTH MAINTENANCE Final Result * Depression Screening (07/29/2023) Pathologist [facility] Depression Screening abstracted Historical Provider HEALTH MAINTENANCE Final Result from Last 3 Months or Most Recently Relevant to Health Maintenance Insurance [facility] PL[facility] Care Teams Field Foreman Relationship Specialty Start Date End Date Latesha France MD [address] [place] [address] PCP - General Internal Medicine 02/13/24
--- OUTSIDE RECORDS SUMMARY | 2025-01-18 18:18 | XMS_ITS | Encounter Summary ---
Author Organization [facility] Address [address] [place] [address] Care Team Providers Care Director Of Critical Care Name Role Phone Latesha France MD Primary Care Provider [phone] Reason for Visit * Reason Onset Date Comments Hypotension 03/19/2024 Encounter Details Date Type Department Care Team (Late st Contact Info) Description 03/19/2024 Nurse Triage Adult Medicine [address] [phone] Latesha France MD [address] [place] [phone] Social History Tobacco Use Types Packs/Day Years [...] recently to another state outside of [place], [place], [place], [place], [place], [place], [place]? no o If yes, did you [...] not applicable PCP: Latesha France MD Payor: [employer] PLAN / Plan: [employer] MEDICAID / Product Type: *No Product type* / documented in this encounter Plan of Treatment Upcoming Encounters Date Type Department Care Team (Late st Contact Info) Description 01/22/2025 3:00 PM EDT Treatment [address] [phone] Holden Toribio, RN ENDOSCOPY 01/23/2025 4:00 PM EDT Appointment Radiology Department - [address] [phone] 01/29/2025 3:30 PM EST Treatment [address] [phone] Breana Quintanilla, PT 02/04/2025 1:00 PM EST Clinical Support Obstetrics and Gynecology - [address] [phone] 02/05/2025 3:00 PM EST Treatment [address] [phone] Holden Toribio, RN ENDOSCOPY 02/12/2025 3:00 PM EST Treatment [facility] [address] [phone] Holden Toribio, RN ENDOSCOPY 02/19/2025 4:00 PM EST Treatment [facility] [address] [phone] Breana Quintanilla, PT 02/26/2025 4:30 PM EST Treatment [facility] [address] [phone] Breana Quintanilla, PT 03/22/2025 3:00 PM EST Office Visit Adult Medicine [facility] [address] [place] [phone] Latesha France MD [address] [place] [address] 06/13/2025 2:30 PM EDT Office Visit Pulmonology - [address] [phone] Jennifer Kaufman MD [address] [address] documented as of this encounter Visit Diagnoses Not on filedocumented in this encounter Additional Health Concerns Infection Onset Date Last Indicated Resolved Time Respiratory Rule-Out 05/22/2024 05/22/2024 025 7:00 PM EST C. difficile Rule-Out 05/23/2024 05/22/20242024 4:54 PM EST documented as of this encounter Care Teams Director Of Critical Care Relationship Specialty Start Date End Date Latesha France MD [address] [place] [address] PCP - General Internal Medicine 02/13/24 documented as of this encounter
== END 2025-01-18 18:18 | disposition home or self-care (01) ==
LOC: HO.ED 18:15
PROVIDERS: Nurse Practitioner Family; Emergency Provider Emergency Medicine Emergency Medical Services; PCP Internal Medicine
DX: B34.9 Viral infection, unspecified (principal); J02.9 Acute pharyngitis, unspecified; R10.22 Pelvic and perineal pain left side; R05.9 Cough, unspecified; R09.81 Nasal congestion; Z79.899 Other long term (current) drug therapy; Z11.52 Encounter for screening for COVID-19
CPT/HCPCS: 87502; 87635; 87651; 99282; 99283

== ENCOUNTER 2025-01-27 17:54 | Emergency (ER) | payer OTHER, SELFPAY ==
--- OUTSIDE RECORDS SUMMARY | 2025-01-22 14:00 | XMS_ITS | Encounter Summary ---
Author Organization [facility] Address [address] [place] [address] Care Team Providers Care Lathmaker Name Role Phone Latesha France MD Primary Care Provider [phone] Reason for Visit * Consultation (Routine) - Authorized Specialty Diagnoses / Procedures Referred By Shabbir t Referred To Contact Physical Therapy Diagnoses Osteoarthritis of lumbar spine, unspecified spinal osteoarthritis complication status Low back pain, unspecified back pain laterality, unspecified chronicity, unspecified whether sciatica present Latesha France MD [address] [place] [address] Phone: tel: fax: Referral ID Status Reason Start Date Expiration Date Visits Requested Visits Authorized [id number] Authorized Specialty Services Required 11/30/2024 11/30/2025 20 20 Encounter Details Date Type Department Care Team (Late st Contact Info) Description 01/22/2025 3:00 PM EDT Treatment [address] [phone] Holden Toribio PTA Lumbar spondylosis (Primary Dx) Social History Tobacco Use Types Packs/Day Years [...] as of this encounter Progress Notes * Holden Toribio PTA - 01/22/2025 3:00 PM EDT [facility] - Outpatient PHYSICAL THERAPY DAILY TREATMENT NOTE - OP Date: 01/22/2025 Visit Number: [id number] Patient Name: Gabrielle Forrester : 2000 Age: 24 y.o. Gender: female Diagnosis: ICD-10-CM ICD-9-CM 1. Lumbar spondylosis M47.816 721.3 Date of Onset/Surgery: 07/01/2024 Referring Provider: Latesha France MD Insurance: Payor: HERMEL DELOR PLAN / Plan: [employer] MEDICAID / Product Type: *No Product type* / Patient Identified by: Holden Toribio PTA Language: Speaks and understands Tristanian as preferred language with no curing room supervisor required Medications: Medications Ordered Prior to Encounter[1] Allergies: has no known allergies. Precautions: Syncope, non-epileptic seizures Fall risk: No SUBJECTIVE Subjective Report: Patient reports multiple falls from syncopedal episodes that area happening morefrequent. Chart Reviewed: Yes Bp checked this morning at home. 104/67 HR 74 Assess BP prior to and during exercise Allow rest breaks - work on low level aerobic exercise, postural strengthening, stretches Pain: 7-8/10 thoracic-lumbar area R QL then radiates towards paris back. TREATMENT INTERVENTION: SL open book 10 reps 5-10 sec hold SKTC 1 x B Piriformis stretching fig 4 1 x B LE BP checked prior to exercises 107/59 HR 76 L UE. BP checked in SL 96/60 HR 68 patient had syncopal episode. 123/78 HR 69 (90) sitting with HOB elevated BP checked in standing 11/67 (78) HR 72 HEP - LTR, sidelying open books ASSESSMENT/Response to Treatment Fair Patient able to tolerate exercises performing slow pace. Patient had abbreviated episode of syncope while laying L SL, boyfriend assisted and providing care and support as needed. Bps checked asabove. After resting for extended period patient able to stand and exit rehab. During Syncope episode offered to call EMS which boyfriend deferred due to patient responding to peripheral pain stimluli. Patient seeing PCP TuesdayJan 25. Urged them to discuss increase of Syncopal episodes. CC with PT Bridgett Nguyễn regarding todays PT visit. Patient Education: Education provided: issued SKTC, iformis stretch as HEP. Education Provided To: Patient and Spouse/Significant Other utilizing Explanation, Demonstration, and Printed Material mode(s) of education Response to Education: Verbal Understanding and Demonstrated Skills PLAN POC Development/Review: No Change in the Plan of Care; Participants: Patient Interventions Time Entry: Modalities: Therapeutic procedures: Therapeutic Exercise Time Entry: 25 Therapeutic Activity Time Entry: 25 Total Treatment Time: 50 mins Documentation completed by Holden Toribio PTA [1] Current Outpatient Medications on File Prior to Visit Medication Sig Dispense Refill albuterol HFA (Ventolin HFA) 90 mcg/actuation inhaler Inhale 2 puffs by mouth every 6 (six) hours if needed for shortness of breath. 8 g 1 baclofen (LIORESAL) 10 mg tablet Take 1 tablet (10 mg total) by mouth 3 (three) times a day. benzoyl peroxide (Acne Medication) 2.5 % gel Apply 1 g topically 2 times daily as needed (acne). 30g 4 cholecalciferol (VITAMIN D-3) 50 mcg (2,000 unit) capsule Take 1 capsule (2,000 Units total) by mouth 1 (one) time each day. 30 each 11 diclofenac (VOLTAREN) 50 mg EC tablet Take 1 tablet (50 mg total) by mouth 2 (two) times a day if needed (pain). Do not crush, chew, or split. 28 tablet 1 fluticasone propionate (FLONASE) 50 mcg/actuation nasal spray SPRAY 2 SPRAYS INTO EACH NOSTRIL EVERY DAY SHAKE GENTLY. CLEAN TIP AND REPLACE CAP AFTER USE. 16 mL 3 gabapentin (NEURONTIN) 300 mg capsule Take 1 capsule (300 mg total) by mouth at bedtime. ibuprofen (ADVIL,MOTRIN) 600 mg tablet Take 1 tablet (600 mg total) by mouth every 8 (eight) hours if needed for mild pain or moderate pain (pain). 60 tablet 2 medroxyPROGESTERone (Depo-Provera) 150 mg/mL injection Inject 1 mL (150 mg total) into the shoulder, thigh, or buttocks every 3 (three) months. 1 mL 3 ondansetron ODT (ZOFRAN-ODT) 4 mg disintegrating tablet Dissolve 1 tablet (4 mg total) on top of the tongue every 8 (eight) hours if needed for nausea or vomiting. 20 tablet 3 PHENobarbitaL 30 mg tablet Take 1 tablet (30 mg total) by mouth 1 (one) time each day. (Patient nottaking: Reported on 12/17/2024) predniSONE (DELTASONE) 20 mg tablet Take 60 mg PO daily for 3 days, then take 40 mg PO daily for 3 days, then 20 mg PO daily for 3 days, then stop (Patient not taking: Reported on 12/17/2024) 18 tablet 0 sertraline (ZOLOFT) 25 mg tablet Take 1 [...] once after 2 hours. 18 tablet 3 [DISCONTINUED] sodium chloride (OCEAN) 0.65 % nasal spray Administer 1 spray into each nostril if needed for congestion. 15 mL 5 No current facility-administered medications on file prior to visit. documented in this encounter Plan of Treatment Upcoming Encounters Date Type Department Care Team (Late st Contact Info) Description 01/29/2025 3:30 PM EST Treatment [address] [phone] Breana Quintanilla, VANNESA 02/04/2025 1:00 PM EST Clinical Support Obstetrics and Gynecology - [address] [phone] 02/05/2025 3:00 PM EST Treatment [address] [phone] Holden Toribio PTA 02/12/2025 3:00 PM EST Treatment [address] [phone] Holden Toribio, RECORDS MANAGEMENT TECHNICIAN 02/19/2025 4:00 PM EST Treatment [facility] [address] [facility] [address] [place] [phone] Breana Quintanilla, PT 02/26/2025 4:30 PM EST Treatment [facility] [address] [facility] [address] [place] [phone] Breana Quintanilla, PT 03/22/2025 3:00 PM EST Office Visit Adult Medicine [facility] [address] [place] [address] Latesha France MD [address] [place] [address] 04/22/2025 11:10 AM EST Consult [facility] [address] [facility] [address] [place] [phone] Romeo Renee MD [address] [place] [address] [address] [place] [address] 06/13/2025 2:30 PM EDT Office Visit Pulmonology - [place] 175 [facility] [address] [place] [address] Jennifer Kaufman MD [address] [place] [phone] 06/26/2025 1:40 PM EDT Office Visit Gastroenterology - [address] [facility] 299 [facility] [address] [place] [address] Yanet Guy NP [address] [place] [address] documented as of this encounter Goals Goal Patient Goal Type Associated Problems Recent Progress Patient-Stated? Author PT LTG - 6 visits General No Bridgett Lockwood, PT Note: Patient reports subjective decrease in back pain Patient is able to complete 6 min walk test Slight flexibility restriction to bilateral QL Patient is able to achieve 100% lumbar flexion and extension without deviations Patient is independent and compliant with HEP documented as of this encounter Visit Diagnoses Diagnosis Lumbar spondylosis- Primary Lumbosacral spondylosis without myelopathy documented in this encounter Care Teams Lathmaker Relationship Specialty Start Date End Date Latesha France MD [address] [place] [address] PCP - General Internal Medicine 02/13/24 documented as of this encounter
--- OUTSIDE RECORDS SUMMARY | 2025-01-23 14:06 | XMS_ITS | Encounter Summary ---
Author Organization [facility] Address [address] [place] [address] Care Team Providers Care Wood Milling Machine Hand Name Role Phone Latesha France MD Primary Care Provider [phone] Reason for Referral * Imaging (Routine) - Pending Review Specialty Diagnoses / Procedures Referred By Contac t Referred To Contact Radiology Diagnoses Radiculopathy, lumbar region Procedures MR Lumbar Spine wo Contrast Sebastián Forrest PA [address] [place] [address] Phone: tel: fax: [address] Phone: tel: Referral ID Status Reason Start Date Expiration Date V isits Requested Visits Authorized [id number] Pending Review 01/03/2025 01/03/2026 1 1 Reason for Visit * Imaging (Routine) - Pending Review Specialty Diagnoses / Procedures Referred By Contac t Referred To Contact Radiology Diagnoses Radiculopathy, lumbar region Procedures MR Lumbar Spine wo Contrast Sebastián Forrest PA [address] [place] [address] Phone: tel: fax: [address] Phone: tel: Referral ID Status Reason Start Date Expiration Date V isits Requested Visits Authorized [id number] Pending Review 01/03/2025 01/03/2026 1 1 Encounter Details Date Type Department Care Team (Latest Contact Info) Description 01/23/2025 3:06 PM EDT - 01/23/2025 11:59 PM EDT Hospital Encounter Radiology Department - [address] [phone] Radiculopathy, lumbar region Discharge Disposition: Home or Self Care Social [...] this encounter Medications at Time of Discharge albuterol HFA (Ventolin HFA) 90 mcg/actuation inhaler Inhale 2 puffs by mouth every 6 (six) hours if needed for shortness of breath. 8 g 1 10/31/2024 6 baclofen (LIORESAL) 10 mg tablet Take 1 tablet (10 mg total) by mouth 3 (three) times a day. cholecalciferol (VITAMIN D-3) 50 mcg (2,000 unit) capsule Take 1 capsule (2,000 Units total) by mouth 1 (one) time each day. 30 each 11/01/2024 6 diclofenac (VOLTAREN) 50 mg EC tablet Take 1 tablet (50 mg total) by mouth 2 (two) times a day if needed (pain). Do not crush, chew, or split. 28 tablet 1 12/07/2024 5 gabapentin (NEURONTIN) 300 mg capsule Take 1 capsule (300 mg total) by mouth at bedtime. ibuprofen (ADVIL,MOTRIN) 600 mg tablet Take 1 tablet (600 mg total) by mouth every 8 (eight) hours if needed for mild pain or moderate pain (pain). 60 tablet 2 11/30/2024 medroxyPROGESTERone (Depo-Provera) 150 mg/mL injection Inject 1 mL (150 mg total) into the shoulder, thigh, or buttocks every 3 (three) months. 1 mL 3 08/17/2024 ondansetron ODT (ZOFRAN-ODT) 4 mg disintegrating tablet Dissolve 1 tablet (4 mg total) on top of the tongue every 8 (eight) hours if needed for nausea or vomiting. 20 tablet 3 12/07/2024 sertraline (ZOLOFT) 25 mg tablet Take 1 tablet (25 mg total) by mouth 1 (one) time each day. 11/20/2024 sodium chloride (OCEAN) 0.65 % nasal spray Administer 1 spray into each nostril if needed for congestion. 15 mL 5 01/22/2025 6 triamcinolone (KENALOG) 0.1 % ointment Apply topically 2 (two) times a day. For 2 weeks 30 g 2 05/11/2024 ZOLMitriptan (ZOMIG) 2.5 mg tablet Take 1 tablet (2.5 mg total) by mouth 1 (one) time if needed for migraine. May repeat once after 2 hours. 18 tablet 3 10/17/2024 6 benzoyl peroxide (Acne Medication) 2.5 % gel Apply 1 g topically 2 times daily as needed (acne). 30 g 4 08/03/2024 5 fluticasone propionate (FLONASE) 50 mcg/actuation nasal spray SPRAY 2 SPRAYS INTO EACH NOSTRIL EVERY DAY SHAKE GENTLY. CLEAN TIP AND REPLACE CAP AFTER USE. 16 mL 3 05/11/2024 5 PHENobarbitaL 30 mg tablet Take 1 tablet (30 mg total) by mouth 1 (one) time each day. 08/14/2024 5 predniSONE (DELTASONE) 20 mg tablet Take 60 mg PO daily for 3 days, then take 40 mg PO daily for 3 days, then 20 mg PO daily for 3 days, then stop 18 tablet 11/30/2024 5 documented as of this encounter Discharge Disposition Disposition Code Departure Means Destination Home or Self Care documented in this encounter Plan of Treatment Upcoming Encounters Date Type Department Care Team (Late st Contact Info) Description 01/29/2025 3:30 PM EST Treatment [place] [address] [address] Breana Quintanilla, PT 02/04/2025 1:00 PM EST Clinical Support Obstetrics and Gynecology [place] [address] [place] [address] 02/05/2025 3:00 PM EST Treatment [address] [address] Holden Toribio, EXHIBIT SPECIALIST 02/12/2025 3:00 PM EST Treatment [address] [address] Holden Toribio, EXHIBIT SPECIALIST 02/19/2025 4:00 PM EST Treatment [address] [phone] Breana Quintanilla, PT 02/26/2025 4:30 PM EST Treatment [address] [phone] Breana Quintanilla, PT 03/22/2025 3:00 PM EST Office Visit Adult Medicine [facility] - [address] [phone] Latesha France MD [address] [place] [address] 04/22/2025 11:[address] [facility] - [facility] [address] [facility] [address] [place] [phone] Romeo Renee MD [address] [place] [address] [facility] [address] [place] [phone] 06/13/2025 2:30 PM EDT Office Visit Pulmonology - [place] 175 [facility] [address] [place] [phone] Jennifer Kaufman MD [address] [place] [phone] 06/26/2025 1:40 PM EDT Office Visit Gastroenterology - [address] [facility] [address] [place] [address] Yanet Guy, DESOLDERER [address] [place] [phone] documented as of this encounter Goals Goal [...] with HEP documented as of this encounter Procedures Procedure Name Priority Date/Time Associated Diagnosis Comments MR LUMBAR SPINE WO CONTRAST Routine 01/23/2025 4:27 PM EDT Radiculopathy, lumbar region documented in this encounter Results * MR Lumbar Spine wo Contrast (01/23/2025 4:27 PM EDT) Anatomical Region Laterality Modality L-spine, Spine Magnetic Resonan ce 01/24/2025 5:10 PM EDT Impressions 01/24/2025 5:19 PM EDT Impression: 1. Multilevel degenerative changes with central disc protrusion at L4-L5 resulting in moderate bilateral neuroforaminal stenosis and moderate spinal canal stenosis -------- FINAL REPORT -------- Dictated By: Courtney Prakash Dictated Date: 01/24/2025 17:10 ET Assigned Physician: Courtney Prakash Reviewed and Electronically Signed By: Courtney Prakash Signed Date: 01/24/2025 17:19 ET Workstation ID: [id number] Transcribed By: Self Edit Transcribed Date: 01/24/2025 17:10 ET Narrative 01/24/2025 5:19 PM EDT MRI LUMBAR SPINE Clinical Statement: low back pain with lower extremity weakness Comparison: None Technique: Multiplanar, multisequence MRI images of the lumbar spine were obtained without intravenous contrast. Findings: There is normal lumbar lordosis. There is preservation of vertebral body height. Vertebral body marrow is grossly within normal limits. Disc desiccation at L4-L5, disc height is maintained. Cord signal is normal. The conus medullaris is normal in signal characteristics and morphology and terminates at the L1-2 level. T12-L1: No neuroforaminal or spinal canal stenosis seen on the sagittal view L1-L2: Broad-based disc bulge, facet arthropathy, ligamentum flavum hypertrophy with mild bilateral neuroforaminal stenosis, no spinal canal stenosis. L2-L3: Broad-based disc bulge, facet arthropathy and hypertrophy, ligamentum flavum hypertrophy with mild bilateral neuroforaminal stenosis, no spinal canal stenosis L3-L4: Broad-based disc bulge, facet arthropathy and hypertrophy, ligamentum flavum hypertrophy with mild bilateral neuroforaminal stenosis, no spinal canal stenosis L4-L5: Broad-based disc bulge and central disc protrusion measuring approximately 0.6 x 0.9 cm, facet arthropathy and hypertrophy, ligamentum flavum hypertrophy resulting in moderate bilateral neuroforaminal stenosis and moderate spinal canal stenosis L5-S1: Broad-based disc bulge, facet arthropathy and hypertrophy, small posterior annular tear with mild neuroforaminal stenosis, no spinal canal stenosis Procedure Note Courtney Prakash MD - 01/24/2025 MRI LUMBAR SPINE Clinical Statement: low back pain with lower extremity weakness Comparison: None Technique: Multiplanar, multisequence MRI images of the lumbar spine wereobtained without intravenous contrast. Findings: There is normal lumbar lordosis. There is preservation ofvertebral body height. Vertebral body marrow is grossly within normallimits. Disc desiccation at L4-L5, disc height is maintained. Cord signalis normal. The conus medullaris is normal in signal characteristics andmorphology and terminates at the L1-2 level. T12-L1: No neuroforaminal or spinal canal stenosis seen on the sagittalview L1-L2: Broad-based disc bulge, facet arthropathy, ligamentum flavumhypertrophy with mild bilateral neuroforaminal stenosis, no spinal canalstenosis. L2-L3: Broad-based disc bulge, facet arthropathy and hypertrophy,ligamentum flavum hypertrophy with mild bilateral neuroforaminal stenosis,no spinal canal stenosis L3-L4: Broad-based disc bulge, facet arthropathy and hypertrophy,ligamentum flavum hypertrophy with mild bilateral neuroforaminal stenosis,no spinal canal stenosis L4-L5: Broad-based disc bulge and central disc protrusion measuringapproximately 0.6 x 0.9 cm, facet arthropathy and hypertrophy, ligamentumflavum hypertrophy resulting in moderate bilateral neuroforaminal stenosisand moderate spinal canal stenosis L5-S1: Broad-based disc bulge, facet arthropathy and hypertrophy, smallposterior annular tear with mild neuroforaminal stenosis, no spinal canalstenosis IMPRESSION: Impression: 1. Multilevel degenerative changes with central disc protrusion at L4- [id number] in moderate bilateral neuroforaminal stenosis and moderatespinal canal stenosis -------- FINAL REPORT -------- Dictated By: Courtney Prakash Dictated Date: 01/24/2025 17:10 ET Assigned Physician: Courtney Prakash Reviewed and Electronically Signed By: Courtney Prakash Signed Date: 01/24/2025 17:19 ET Workstation ID: [id number] Transcribed By: Self Edit Transcribed Date: 01/24/2025 17:10 ET Sebastián JONES IMG MRI PROCEDURES Final Resul t documented in this encounter Visit Diagnoses Diagnosis Radiculopathy, lumbar region Thoracic or lumbosacral neuritis or radiculitis, unspecified documented in this encounter Care Teams Wood Milling Machine Hand Relationship Specialty Start Date End Date Latesha France MD [address] [place] [address] PCP - General Internal Medicine 02/13/24 documented as of this encounter
--- OUTSIDE RECORDS SUMMARY | 2025-01-25 13:00 | XMS_ITS | Encounter Summary ---
Author Organization [facility] Address [address] [place] [address] Care Team Providers Care Fittings Tightener Name Role Phone Latesha France MD Primary Care Provider [phone] Reason for Referral * Consultation (Urgent) - Authorized Specialty Diagnoses / Procedures Referred By Shabbir sandoval Referred To Contact Cardiology Diagnoses Chest pain, unspecified type Latesha France MD [address] [place] [address] Phone: tel: fax: [facility] [address] [facility] [address] [place] [address] Phone: tel: fax: Referral ID Status Reason Start Date Expiration Date Visits Requested Visits Authorized [id number] Authorized Specialty Services Required 01/25/2026 1 1 * Consultation (Routine) - Authorized Specialty Diagnoses / Procedures Referred By Shabbir sandoval Referred To Contact Hand Surgery / Orthopaedic Surgery Diagnoses Bilateral hand numbness Latesha France MD [address] [place] [address] Phone: tel: fax: Orthopedic Surgery [facility] [address] [facility] [address] [place] [address] Phone: tel: fax: Referral ID Status Reason Start Date Expiration Date Visits Requested Visits Authorized [id number] Authorized Specialty Services Required 5 01/25/2026 1 1 * Consultation (Urgent) - Authorized Specialty Diagnoses / Procedures Referred By Contac t Referred To Contact Neurosurgery Diagnoses Osteoarthritis of lumbar spine, unspecified spinal osteoarthritis complication status Chronic low back pain, unspecified back pain laterality, unspecified whether sciatica present Latesha France MD [address] [place] [address] Phone: tel: fax: Neurosurgery [facility] [address] [facility] [address] [place] [address] Phone: tel: fax: Referral ID Status Reason Start Date Expiration Date Visits Requested Visits Authorized [id number] Authorized Specialty Services Required 5 01/25/2026 1 1 * Consultation (Routine) - Authorized Specialty Diagnoses / Procedures Referred By Contkamilla t Referred To Contact Gastroenterology Diagnoses Nausea Latesha France MD [address] [place] [address] Phone: tel: fax: Gastroenterology - [address] [facility] [address] [place] [address] Phone: tel: fax: Referral ID Status Reason Start Date Expiration Date Visits Requested Visits Authorized [id number] Authorized Specialty Services Required 5 01/25/2026 1 1 Reason for Visit * Reason Comments [place] [facility] [place] En[place] Details Date Type Department Care Team ([facility] st Contact Info) Description 01/25/2025 2:00 PM EDT Office Visit Adult Medicine [facility] [address] [place] [address] Latesha France MD [address] [place] [id number] Nausea (Primary Dx); Acne, unspecified acne type; Allergy, subsequent encounter; Psychogenic nonepileptic seizure; Syncope, unspecified syncope type; SOB (shortness of breath); Osteoarthritis of lumbar spine, unspecified spinal osteoarthritis complication status; Chronic low back pain, unspecified back pain laterality, unspecified whether sciatica present; Osteoarthritis of thoracic spine, unspecified spinal osteoarthritis complication status; Bilateral hand numbness; Increased sputum production; Chest pain, unspecified type Social History Tobacco Use Types Packs/Day Years [...] Sign Reading Time Taken Comments Blood Pressure 101/59 01/25/2025 1:36 PM EDT Pulse 96 01/25/2025 1:36 PM EDT Temperature 36.4 C (97.5 F) 01/25/2025 1:36 PM EDT Respiratory Rate - - Oxygen Saturation - - Inhaled Oxygen Concentration - - Weight 51.3 kg (113 lb) 01/25/2025 1:36 PM EDT Height 149.9 cm (4' 11 ) 01/25/2025 1:36 PM EDT Body Mass Index 22.82 01/25/2025 1:36 PM EDT documented in this encounter Ordered Prescriptions Prescription Sig Dispense Quantity Refills Last Filled Start Date End Date cyclobenzaprine (FLEXERIL) 5 mg tablet Take 1 tablet (5 mg total) by mouth at bedtime as needed for muscle spasms. 30 tablet 01/25/2025 5 methylPREDNISolone (MEDROL DOSPAK) 4 mg tablet Take as directed on package. 21 tablet 01/25/2025 5 benzoyl peroxide (Acne Medication) 2.5 % gel Apply 1 g topically 2 times daily as needed (acne). 30 g 4 01/25/2025 fluticasone propionate (FLONASE) 50 mcg/actuation nasal spray Administer 1 spray into each nostril 1 (one) time each day. Shake gently. Before first use, prime pump. After use, clean tip and replace cap. 16 mL 3 01/25/2025 documented in this encounter Progress Notes * Latesha France MD - 01/25/2025 2:00 PM EDT CHIEF COMPLAINT: [place] [place] IDENTIFIER: Gabrielle Forrester is a 24 y.o. old female. HPI: History of Present Illness The patient is a 24-year-old female who presents for evaluation of sore throat, abdominal pain, cough, nasal congestion, chills, PTSD, nonepileptic seizures, vasovagal syncope, anemia, arthritis, acne, and chest pain. She is accompanied by her boyfriend. She recently sought emergency care due to ear, throat, and abdominal pain, accompanied by nausea. She continues to experience nausea and has been using Zofran for relief. She has not yet consulted a bending press operator. She reports no presence of blood in her urine or stool and maintains adequate hydration and nutrition. She typically consumes 2 to 3 bottles of water daily. She reports no episodesof vomiting or diarrhea. She has an upcoming appointment with an ENT specialist on 02/01/2025. She continues to experience throat pain and mucus production since her viral infection. She has been monitoring her blood pressure at home, which has shown significant fluctuations. She experienced a fainting episode during physical therapy on Tuesday, but regained consciousness immediately. She has had multiple such episodes recently, each lasting 1 to 2 minutes. She also reported fainting episodes on 01/03/2025 and 01/10/2025. She has an appointment with Dr. Do on 04/22/2025.She has undergone tilt table testing and wore a 30-day monitor, both of which were normal. She has not received any calls regarding her 48-hour EEG. She reports no shaking movements during her recentfainting episodes. She was aware of her impending fainting episode during her recent visit to her ph ysical therapist. Her blood pressure was checked 3 times during that visit and the second reading was low when she was about to faint. She did not skip any meals on that day. She has an appointment with neurology on 01/31/2025. She has undergone EMG and nerve conduction studies. She has not taken gabapentin. She experiences chest tightness when she gets up from a lying position. She always feels some amount of discomfort in her chest. She has never done a nuclear scan for the heart. She did do a carotid ultrasound last year. She has not had her sputum tested. She has been experiencing back pain and underwent an MRI of her lower back. She rates her pain as 8out of 10. She used to take baclofen, but discontinued it due to nausea. She reports coldness in her hands and feet, but no hand pain. She has not had a hand x-ray in the past. She has not consulted a hand specialist in the past. She reports no recurrence of nonepileptic seizures. She uses an albuterol inhaler for shortness of breath, which has been beneficial. She has no known diagnosis of asthma. She underwent a lung function test, which was normal. She followed up with a lung specialist who informed her that they could not do anything. She experiences tinnitus, primarily in her right ear, but reports no hearing loss. She is requesting refills for Flonase and benzoyl peroxide. The benzoyl peroxide helps her. She has an appointment with a foot doctor who wanted to know if she has arthritis in her right footsince she still has pain in her foot every time she walks. ROS: The remainder of review of systems is noncontributory. PAST MEDICAL HISTORY: Patient Active Problem List Diagnosis Date Noted Allergies 01/25/2025 Acne 01/25/2025 Nausea 01/25/2025 SOB (shortness of breath) 01/25/2025 Osteoarthritis of thoracic spine 01/25/2025 Bilateral hand numbness 01/25/2025 Osteoarthritis of lumbar spine 11/30/2024 Constipation 11/30/2024 [...] Specified) No partnership data on file Family History[1] ACTIVE MEDICATIONS: Medications Taking[2] ALLERGIES: Patient has no known allergies. PHYSICAL EXAM: Blood pressure 101/59, pulse 96, temperature 36.4 ??C (97.5 ??F), height 1.499 m (59 ), weight 51.3kg (113 lb). Body mass index is 22.82 kg/m??. BMI is 18.5 to 24.9 (within the normal range) and will be followed Physical Exam General Appearance: Normal. Vital signs: Within normal limits. HEENT: Within normal limits. Respiratory: Clear to auscultation, no wheezing, rales or rhonchi. Cardiovascular: Regular rate and rhythm, no murmurs, rubs, or gallops. Extremities: Good capillary refill and pulse on both sides. Skin: Warm and dry, no rash. Neurological: Normal. LABS: Results Labs - Autoimmune screening: Normal - Cholesterol levels: Good Imaging - MRI of the low back: Mild arthritis changes in the thoracic spine and multilevel arthritis changes with disk protrusion and narrowing where the nerve exits the spine in the lumbar spine Diagnostic Testing - 30-day monitor: Predominantly normal rhythm with few episodes of decreased heart rate - Stress test: Normal - EKG: Normal - 48-hour EEG: No evidence of seizures IMPRESSION: 1. Nausea 2. Acne, unspecified acne type 3. Allergy, subsequent encounter 4. Psychogenic nonepileptic seizure 5. Syncope, unspecified syncope type 6. SOB (shortness of breath) 7. Osteoarthritis of lumbar spine, unspecified spinal osteoarthritis complication status 8. Chronic low back pain, unspecified back pain laterality, unspecified whether sciatica present 9. Osteoarthritis of thoracic spine, unspecified spinal osteoarthritis complication status 10. Bilateral hand numbness 11. Increased sputum production PLAN: ALL MEDICATIONS WERE REVIEWED AND RECONCILED Orders Placed This Encounter Procedures Emergency (Personal) Response Culture sputum XR Hand 3+ Views bilat Ambulatory referral to Gastroenterology Ambulatory referral to Neurosurgery Ambulatory referral to Hand Surgery Assessment & Plan 1. Nausea: - She reports ongoing nausea and is currently taking Zofran. - If she does not receive a call from the GI team within 3 to 4 weeks, she should inform us. 2. Nasal Congestion: - She uses Flonase for nasal congestion. - A prescription for Flonase will be sent to the pharmacy. 3. Acne: - She uses benzoyl peroxide for acne. - A prescription for benzoyl peroxide will be sent to the pharmacy. 4. Low Blood Pressure: - Her blood pressure readings have shown some improvement at home, but there is still variability. - She is advised to maintain adequate hydration and consume small meals for breakfast, lunch, and dinner to keep her blood pressure within the normal range (minimum 90/60, maximum 120/80). - Her blood pressure will be rechecked during her next visit in 3 months. 5. Fainting Episodes: - She has experienced multiple fainting episodes recently, including on 01/22/2025 and during physical therapy. - Her 30-day monitor showed predominantly normal rhythm with few episodes of decreased heart rate. Stress test was normal. EKG was normal. 48-hour EEG showed no evidence of seizures. Tilt table testing was normal. - It was discussed that with any loss of consciousness, the number one priority would be ensuring patient safety. If the patient is not arousable and is not actively seizing especially, then she needs to go to the ER because so far she has had EEG done and no seizure like activity was noted. - A message will be sent to the durable medical equipment team regarding Life Alert. If she experiences any fainting episodes, she should seek immediate medical attention at the ER. 6. Chest Discomfort: - She reports ongoing chest discomfort, particularly when bending or getting up from bed. Patient has had normal exercise stress test - A referral to cardiology will be made for further evaluation and potential additional investigations, such as a nuclear scan. 7. Back Pain: - She reports severe back pain with an MRI showing multilevel arthritis changes with disk protrusion and narrowing where the nerve exits the spine. - A prescription for Medrol Dosepak and Flexeril will be sent to the pharmacy to help reduce inflammation and manage pain. A referral to neurosurgery will be made for further evaluation. 8. Cold Hands: - She reports that her hands get cold very quickly but does not experience any hand pain. - Pulse and capillary refill are good on both sides. In terms of circulation, there is not a red spot there. - An x-ray of her hands will be ordered to check for any underlying issues. - A referral to a hand oral and maxillofacial surgery will be made for further evaluation and potential nerve studies. 9. Tinnitus: - She reports ringing in her right ear but no hearing loss. 10. Nonepileptic Seizures: - She reports no recurrence of nonepileptic seizures recently. 11. Shortness of Breath: - She uses an albuterol inhaler for shortness of breath, which has been helping. Follow-up: The patient will follow up in 3 months. ADDITIONAL ORDERS: EMERGENCY (PERSONAL) RESPONSE AMB REFERRAL TO GASTROENTEROLOGY AMB REFERRAL TO NEUROSURGERY AMB REFERRAL TO HAND SURGERY XR HAND 3+ VIEWS HEYDI France MD on 01/25/2025 at 2:20 PM EDT I have obtained verbal consent from Gabrielle Forrester prior to the recording. I have advised Gabrielle Forrester that she may refuse the recording and require the recording to be turned off at any time during this encounter. [1] Family History Problem Relation Name Age of Onset No Known Problems Paternal Grandfather No Known Problems Maternal Grandfather No Known Problems Father Ovarian cancer Mother's side great great aunt Breast cancer Neg Hx Colon cancer Neg Hx Pancreatic cancer Neg Hx Kidney cancer Neg Hx Cancer of Small Bowel Neg Hx Uterine cancer Neg Hx [2] Outpatient Medications Marked as Taking for the 01/25/25 encounter (Office Visit) with Latesha France MD [...] fluticasone propionate (FLONASE) 50 mcg/actuation nasal spray Administer 1 spray into each nostril 1 (one) time each day. Shake gently. Before first use, prime pump. After use, clean tip and replace cap. 16 mL 3 gabapentin (NEURONTIN) 300 mg [...] for nausea or vomiting. 20 tablet 3 sertraline (ZOLOFT) 25 mg tablet Take 1 [...] after 2 hours. 18 tablet 3 [DISCONTINUED] benzoyl peroxide (Acne Medication) 2.5 % gel Apply 1 g topically 2 times daily as needed (acne). 30 g 4 [DISCONTINUED] fluticasone propionate (FLONASE) 50 mcg/actuation nasal spray SPRAY 2 SPRAYS INTO EACH NOSTRIL EVERY DAY SHAKE GENTLY. CLEAN TIP AND REPLACE CAP AFTER USE. 16 mL 3 documented in this encounter Plan of Treatment Upcoming Encounters Date Type Department Care Team (Late st Contact Info) Description 01/29/2025 3:30 PM EST Treatment [address] [address] Breana Quintanilla, PT 02/04/2025 1:00 PM EST Clinical Support Obstetrics and Gynecology [address] [address] 02/05/2025 3:00 PM EST Treatment [address] [address] Holden Toribio, PHARMACY DATA ANALYST 02/12/2025 3:00 PM EST Treatment [address] [address] Holden Toribio, PHARMACY DATA ANALYST 02/19/2025 4:00 PM EST Treatment [address] [address] Breana Quintanilla, PT 02/26/2025 4:30 PM EST Treatment [address] [address] Breana Quintanilla, PT 03/22/2025 3:00 PM EST Office Visit Adult Medicine [address] [address] Latesha France MD [address] [place] [address] 04/22/2025 11:10 AM EST Consult [facility] [address] [facility] [address] [place] [phone] Romeo Renee MD [address] [place] [address] [place] [address] 06/13/2025 2:30 PM EDT Office Visit Pulmonology - [place] [address] [facility] [address] [place] [address] Jennifer Kaufman MD [address] [place] [phone] 06/26/2025 1:40 PM EDT Office Visit Gastroenterology - 299 [facility] [address] [facility] [address] [place] [address] Yanet Guy NP [address] [place] [phone] Scheduled Orders Name Type Priority Associated Diagnoses Orde r Schedule Culture sputum Microbiology Routine Increased sputum production 1 Occurrences starting 01/25/2025 until 01/25/2026 Scheduled Referrals Name Type Priority Associated Diagnoses Orde r Schedule Ambulatory referral to Gastroenterology Outpatient Referral Routine Nausea 1 Occurrences starting 01/25/2025 until 01/25/2026 Ambulatory referral to Neurosurgery Outpatient Referral Routine Osteoarthritis of lumbar spine, unspecified spinal osteoarthritis complication status Chronic low back pain, unspecified back pain laterality, unspecified whether sciatica present 1 Occurrences starting 01/25/2025 until 01/25/2026 Ambulatory referral to Hand Surgery Outpatient Referral Routine Bilateral hand numbness 1 Occurrences starting 01/25/2025 until 01/25/2026 Ambulatory referral to Cardiology Outpatient Referral Routine Chest pain, unspecified type 1 Occurrences starting 01/25/2025 until 01/25/2026 documented as of this encounter Goals Goal [...] with HEP documented as of this encounter Results * XR Hand 3+ Views bilat (01/25/2025 2:42 PM EDT) Anatomical Region Laterality Modality Upper Extremities, Hand Bilateral Radiogra phic Imaging 01/26/2025 9:43 AM EDT Impressions 01/26/2025 9:46 AM EDT No acute bony abnormality or arthritic changes. -------- FINAL REPORT -------- Dictated By: Merle Rao Dictated Date: 01/26/2025 09:43 ET Assigned Physician: Merle Rao Reviewed and Electronically Signed By: Merle Rao Signed Date: 01/26/2025 09:46 ET Workstation ID: [id number] Transcribed By: Self Edit Transcribed Date: 01/26/2025 09:43 ET Narrative 01/26/2025 9:46 AM EDT EXAM: Bilateral hand x-ray HISTORY: Bilateral hand numbness. COMPARISON: None FINDINGS: 3 views of both hands were performed. No acute fracture or malalignment. Joint spaces are maintained. No destructive or erosive bony changes. No soft tissue calcifications. Procedure Note Merle Rao MD - 01/26/2025 EXAM: Bilateral hand x-ray HISTORY: Bilateral hand numbness. COMPARISON: None FINDINGS: 3 views of both hands were performed. No acute fracture or malalignment. Joint spaces are maintained. Nodestructive or erosive bony changes. No soft tissue calcifications. IMPRESSION: No acute bony abnormality or arthritic changes. -------- FINAL REPORT -------- Dictated By: Merle Rao Dictated Date: 01/26/2025 09:43 ET Assigned Physician: Merle Rao Reviewed and Electronically Signed By: Merle Rao Signed Date: 01/26/2025 09:46 ET Workstation ID: [id number] Transcribed By: Self Edit Transcribed Date: 01/26/2025 09:43 ET Latesha France MD IMG XR PROCEDURES Final Res ult documented in this encounter Visit Diagnoses Diagnosis Nausea- Primary Nausea alone Acne, unspecified acne type Allergy, subsequent encounter Psychogenic nonepileptic seizure Syncope, unspecified syncope type SOB (shortness of breath) Shortness of breath Osteoarthritis of lumbar spine, unspecified spinal osteoarthritis complication status Chronic low back pain, unspecified back pain laterality, unspecified whether sciatica present Osteoarthritis of thoracic spine, unspecified spinal osteoarthritis complication status Bilateral hand numbness Disturbance of skin sensation Increased sputum production Chest pain, unspecified type Bilateral hand numbness Disturbance of skin sensation documented in this encounter Discontinued Medications Medication Sig Discontinue Reason Start Date End Da te PHENobarbitaL 30 mg tablet Take 1 tablet (30 mg total) by mouth 1 (one) time each day. 08/14/2024 01/25/2025 fluticasone propionate (FLONASE) 50 mcg/actuation nasal spray SPRAY 2 SPRAYS INTO EACH NOSTRIL EVERY DAY SHAKE GENTLY. CLEAN TIP AND REPLACE CAP AFTER USE. Reorder 05/11/2024 01/25/2025 benzoyl peroxide (Acne Medication) 2.5 % gel Apply 1 g topically 2 times daily as needed (acne). Reorder 08/03/2024 01/25/2025 predniSONE (DELTASONE) 20 mg tablet Take 60 mg PO daily for 3 days, then take 40 mg PO daily for 3 days, then 20 mg PO daily for 3 days, then stop 11/30/2024 01/25/2025 documented as of this encounter Orders General Supply Count Last Ordered Date First Or dered Date EMERGENCY (PERSONAL) RESPONSE 1 01/25/2025 documented in this encounter Care Teams Fittings Tightener Relationship Specialty Start Date End Date Latesha France MD [address] [place] [address] PCP - General Internal Medicine 02/13/24 documented as of this encounter
--- OUTSIDE RECORDS SUMMARY | 2025-01-25 13:30 | XMS_ITS | Encounter Summary ---
Author Organization [facility] Address [address] [place] [address] Care Team Providers Care Equipment Worker Name Role Phone Latesha France MD Primary Care Provider [phone] Encounter Details Date Type Department Care Team (Latest Contact Info) Description 01/25/2025 2:30 PM EDT - 01/25/2025 11:59 PM EDT Hospital Encounter [facility] [address] [place] [address] Bilateral hand numbness Discharge Disposition: Home or [...] Info) Description 01/29/2025 3:30 PM EST Treatment [address] [phone] Breana Quintanilla, PT 02/04/2025 1:00 PM EST Clinical Support Obstetrics and Gynecology - [address] [phone] 02/05/2025 3:00 PM EST Treatment [address] [phone] Holden Toribio, LIBRARY ATTENDANT 02/12/2025 3:00 PM EST Treatment [address] [address] Holden Toribio, LIBRARY ATTENDANT 02/19/2025 4:00 PM EST Treatment [address] [phone] Breana Quintanilla, PT 02/26/2025 4:30 PM EST Treatment [address] [phone] Breana Quintanilla, PT 03/22/2025 3:00 PM EST Office Visit Adult Medicine [address] [phone] Latesha France MD [address] [place] [address] 04/22/2025 11:10 AM EST Consult [facility] - [address] [place] [address] Romeo Renee MD [address] [place] [address] Dr [address] [place] [phone] 06/13/2025 2:30 PM EDT Office Visit Pulmonology - [place] 175 [facility] [address] [place] [address] Jennifer Kaufman MD 230 [place] [phone] 06/26/2025 1:40 PM EDT Office Visit Gastroenterology - [address] 299 [facility] 419 [place] [phone] Yanet Guy NP 230 [place] [phone] documented as of this encounter Goals Goal [...] Signed Date: 01/26/2025 09:46 ET Workstation ID: [id number] Transcribed By: Self Edit Transcribed Date: 01/26/2025 [...] Signed Date: 01/26/2025 09:46 ET Workstation ID: [id number] Transcribed By: Self Edit Transcribed Date: 01/26/2025 09:43 ET us Latesha France MD IMG XR PROCEDURES Final Res ult documented in this encounter Visit Diagnoses Diagnosis Bilateral hand numbness Disturbance of skin sensation documented in this encounter Care Teams Equipment Worker Relationship Specialty Start Date End Date Latesha France MD [address] [place] [address] PCP - General Internal Medicine 02/13/24 documented as of this encounter
--- OUTSIDE RECORDS SUMMARY | 2025-01-25 13:45 | XMS_ITS | Encounter Summary ---
Author Organization [facility] Address [address] [place] [address] Care Team Providers Care Electrician [employer] Name Role Phone Latesha France MD Primary Care Provider [phone] Encounter Details Date Type Department Care Team (Late Contact Info) Description 01/25/2025 2:45 PM EDT Lab Draw Station - [address] Vitamin B12 deficiency; Vitamin D deficiency Social History Tobacco Use Types Packs/Day Years [...] Department Care Team (Late Contact Info) Description 01/29/2025 3:30 PM EST Treatment [address] [phone] Breana Quintanilla, VANNESA 02/04/2025 1:00 PM EST Clinical Support Obstetrics and Gynecology - [address] [phone] 02/05/2025 3:00 PM EST Treatment [address] [phone] Holden Toribio PTA 02/12/2025 3:00 PM EST Treatment [facility] [address] [phone] Holden Toribio, MANDREL PULLER 02/19/2025 4:00 PM EST Treatment [facility] [address] [phone] Breana Quintanilla, PT 02/26/2025 4:30 PM EST Treatment [facility] [address] [phone] Breana Quintanilla, PT 03/22/2025 3:00 PM EST Office Visit Adult Medicine [facility] 444 [place] [address] Latesha France MD 444 [place] [address] 04/22/2025 11:10 AM EST Consult [facility] - [facility] 154 300 [facility] 154 [place] [phone] Romeo Renee MD [address] [place] [address] 410 [place] [phone] 06/13/2025 2:30 PM EDT Office Visit Pulmonology - [place] 175 [facility] 200 [place] [phone] Jennifer Kaufman MD 230 [place] [address] 06/26/2025 1:40 PM EDT Office Visit Gastroenterology - 299 [facility] 299 [facility] 419 [place] [address] Yanet Guy NP 230 [place] [address] documented as of this encounter Goals Goal [...] Diagnosis Comments VITAMIN D 25 HYDROXY Routine 01/25/2025 2:47 PM EDT Vitamin D deficiency VITAMIN B12 Routine 01/25/2025 2:47 PM EDT Vitamin B12 deficiency documented in this encounter Results * (ABNORMAL) Vitamin D 25 hydroxy (01/25/2025 2:47 PM EDT) [facility] Vit D, 25-Hydroxy 27.0(L) 30.0 - 80.0 ng/mL LAB CHEMISTRY METHOD 01/25/2025 7:35 PM EDT [facility] Blood Venous blood specimen / Unknown Venipuncture / Unknown 01/25/2025 2:47 PM EDT 01/25/2025 2:47 PM EDT Latesha France MD LAB BLOOD ORDERABLES Final Result Performing Organization Address City/[facility]/ZIP Co de Phone Number [facility] [address] [place] [address], [place] [phone] * Vitamin B12 (01/25/2025 2:47 PM EDT) [facility] Vitamin B-12 420 250 - 900 pcg/mL LAB CHEMISTRY METHOD 01/25/2025 7:37 PM EDT [facility] Blood Venous blood specimen / Unknown Venipuncture / Unknown 01/25/2025 2:47 PM EDT 01/25/2025 2:47 PM EDT us Latesha France MD LAB BLOOD ORDERABLES Final Result [facility]) HOSP[facility] LAB [address] [place] [address], documented in this encounter Visit Diagnoses Diagnosis Vitamin B12 deficiency Other B-complex deficiencies Vitamin D deficiency documented in this encounter Care Teams Electrician [employer] Relationship Specialty Start Date End Date Latesha France MD [address] [place] [address] PCP - General Internal Medicine 02/13/24 documented as of this encounter
--- NOTE | 2025-01-27 17:56 | ED.BACK ---
HPI - Back Pain/Injury General Chief Complaint: Back Pain/Injury Stated Complaint: back pain, not feeling well Time Seen by Provider: 01/27/25 21:17 Source: patient, RN notes reviewed and old records reviewed Mode of arrival: ambulatory Limitations: no limitations History of Present Illness ED Provider: Dr. Carolyn Gage HPI Narrative: 24-year-old female with a history of nonepileptic seizure disorder, chronic back pain with a history of bulging discs, migraine headaches, vasovagal syncope presenting with continued low back pain and frequent episodes of syncope. States that she has been having worsening back pain and had an MRI recently at the orthopedic surgeon's office. Was told that she has severe lumbar disc disease and was prescribed methylprednisolone and cyclobenzaprine. Admits that she has picked up the drugs but has not taken anything yet. States she is having worsening pain but denies associated fevers or chills, headaches or vision changes, stiff neck, loss of bowel or bladder control, urinary retention, direct trauma to the spine or specific injury, numbness/tingling/weakness of the extremities, IV drug use, history of recent instrumentation or injections into the spine. She is currently taking physical therapy. Admits that when she is doing physical therapy, she will have occasional episodes where she will pass out due to pain. This has been an ongoing issue for her. Her blood pressure normally runs low. No reported chest pain or difficulty breathing. She denies headache. Related Data Home Medications ?Medication ?Instructions ?Recorded ?Confirmed adapalene 0.1 % topical gel 1 appl topical BEDTIME 09/12/24 12/03/24 benzoyl peroxide 2.5 % topical 1 appl topical BID 09/12/24 12/03/24 cleanser triamcinolone acetonide 0.1 % 1 appl topical BID 09/12/24 12/03/24 topical cream albuterol sulfate 90 mcg/actuation 2 puff inhalation Q6H PRN dyspnea 12/03/24 12/03/24 aerosol inhaler (Ventolin HFA) medroxyprogesterone 150 mg/mL 150 mg IM [id number] 12/03/24 12/03/24 intramuscular suspension (Depo-Provera) gabapentin 300 mg capsule 300 mg PO BID 01/02/25 Previous Rx's ?Medication ?Instructions ?Recorded ondansetron 4 mg disintegrating 4 mg PO Q8H 3 days #9 tabs 03/23/24 tablet [id number] 1 cap PO TID PRN pain #14 caps 06/19/23 50 mg-300 mg-40 mg capsule (Fioricet) acetaminophen 500 mg capsule 1,000 mg (2 x 500 mg) PO .q8 PRN 11/01/24 fever or pain #30 caps ibuprofen 600 mg tablet 600 mg PO Q8H PRN fever or pain 11/01/24 #30 tabs cephalexin 500 mg capsule 500 mg PO TID 7 days #21 caps 11/22/24 cholecalciferol (vitamin D3) 25 25 mcg PO DAILY insufficient 12/27/24 mcg (1,000 unit) capsule vitamin D 3 months #90 caps acetaminophen 325 mg capsule 650 mg (2 x 325 mg) PO Q6H PRN 01/18/25 pain #30 caps ferrous sulfate 325 mg (65 mg 325 mg PO DAILY low iron levels 90 01/20/25 iron) tablet days #90 tabs mecobalamin (vitamin B12) 1,000 1,000 mcg PO DAILY b12 anemia 3 01/21/25 mcg chewable tablet months #90 tabs Allergies Allergy/AdvReac Type Severity Reaction Status Date / Time paper tape Allergy Intermediate Rash Uncoded 01/18/25 17:01 clear tape Allergy Rash Uncoded 01/27/25 17:58 Review of Systems Review of Systems: as per HPI, full review of systems performed and negative but for the above mentioned pertinent positives and negatives. [facility] Past Medical History Medical History Somatization disorder Personality disorder Conversion disorder with seizures or convulsions Seizure Vasovagal syncope Syncope Sinus tachycardia PTSD (post-traumatic stress disorder) Moderate intellectual disabilities Migraine without status migrainosus, not intractable Menorrhagia with regular cycle Hypotension Insomnia Anxiety Migraine Family History Family History Mother Headache Social History Social History Alcohol intake: never Patient Tobacco Use Status: Never used Tobacco e-Cigarette/Vaping Use: Never Used Advance Directives: No Advance Directives Information Provided: No Physical Exam Exam: Exam: GENERAL: Well-Appearing, conversant, no acute distress. SKIN: Normal skin color for ethnicity, warm, dry, no rashes noted. HEENT:? Normocephalic, atraumatic, no stridor, posterior oropharynx nonerythematous, dentition intact, EOMI. NECK: Soft, supple, full ROM, midline structures nontender, no step-offs, no deformities, no lymphadenopathy. CHEST: Heart regular rate and rhythm, no murmurs, symmetric chest rise and fall. PULMONARY: Clear to auscultation bilaterally, no labored breathing, no wheezes/rhales/rhonchi. ABDOMINAL: Soft, nondistended, nontender, positive bowel sounds in all quadrants. : Deferred. MUSCULOSKELETAL: Normal tone, full range of motion, no deformities, no peripheral edema. NEURO: Alert and oriented x3, CN II through XII intact, equal strength and sensation bilateral upper and lower extremities, no focal neurologic deficits.? PSYCHIATRIC: Normal affect, fluid speech, good eye contact and appropriate demeanor. Vital Signs: Vital Signs: Last Vital Signs Temp 98.1 F 01/27/25 22:47 Pulse 88 01/27/25 22:47 Resp 18 01/27/25 22:47 BP 112/65 01/27/25 22:47 Pulse Ox 99 01/27/25 22:47 O2 Del Method Room Air 01/27/25 22:47 BMI result Body Mass Index 23.8 Course Course Course Narrative: This is a Rapid Medical Exam performed in triage by Maye Franz PA-C. Full HPI, ROS and PE to be performed by primary ED provider. 24 yo F w/pmhx seizures, anemia presenting to the ED c/o mid/low back pain x 1 mos w/ multiple syncopal episodes today due to pain. denies incontinence/retention, numbness/tingling. Hasnt been taking much for pain. denies head trauma during incidents PE: +lumbar paraspinal ttp. ambulating w/steady gait Plan: EKG, labs, UA Medications Administered Discontinued Medications Generic Name Dose Route Start Last Admin Trade Name Freq PRN Reason Stop Dose Admin Cyclobenzaprine HCl 5 mg 01/27/25 22:03 01/27/25 22:40 Cyclobenzaprine Hcl 5 Mg Tablet PO 01/27/25 22:04 5 mg ONCE ONE Administration Dexamethasone 10 mg 01/27/25 22:03 01/27/25 22:40 Dexamethasone 2 Mg Tablet PO 01/27/25 22:04 10 mg ONCE ONE Administration Medical Decision Making Medical Decision Making [facility] Narrative: Patient presents today with a chief complaint of back pain. Differential diagnosis includes musculoskeletal pain, osseous abnormality such as fracture or tumor, infection, spinal cord pathology such as cauda equina syndrome, ligamentous or disc pathology, vascular abnormalities, among many others. I reviewed the list of red flag features such as trauma, weight loss, abnormal neurological findings such as weakness, bowel or bladder incontinence, saddle paresthesia, as well as history of cancer, IV drug abuse, fever, to list a few. Based on history and physical examination, no further imaging is required. She showed me her MRI results and it looks like she has some pretty severe disc disease with bulging discs from T12/L1 through L5/S1. She has some radiculopathy at the L4-L5 disc space. Discuss this with her at length. She has no focal neurologic deficits on my exam and has a appropriate care with an orthopedic surgeon as an outpatient. We reviewed the use of cyclobenzaprine and I instructed her to continue drinking as much water as possible as to avoid dehydration in the setting of low blood pressure at baseline. Cyclobenzaprine can drop her blood pressure. Methylprednisolone should help her overall clinical picture though. Using shared decision making, plan for discharge home to follow-up with primary care and/or specialist.? Patient understands and agrees with plan for discharge.? Discharged home in stable condition. Differential Diagnosis Differential Diagnoses: The differential diagnosis associated with the presentation includes (As above) Lab Data [facility] Lab Attestation statement: I reviewed the patient's lab results. 01/27/25 21:10 01/27/25 21:10 Labs: Lab Results 01/27/25 01/27/25 Range/Units 18:42 21:10 WBC 8.8 (4.8-10.8) X10*3/uL RBC 4.58 (4.20-5.50) X10*6/uL Hgb 13.4 (12.0-16.0) g/dl Hct 39.7 (37.0-47.0) % MCV 86.7 (80.0-98.0) fL MCH 29.3 (27.0-33.0) pg MCHC 33.8 (31.0-35.0) g/dl RDW 11.8 (11.0-16.0) % Plt Count 326 (160-400) X10*3/uL MPV 9.9 (9.4-12.3) fL Immature Gran % (Auto) 0.1 (0.0-0.4) % Neut % (Auto) 60.1 (45-73) % Lymph % (Auto) 25.9 (20-40) % Elliott % (Auto) 7.5 (2-11) % Eos % (Auto) 5.9 H (0-4) % Baso % (Auto) 0.5 (0-2) % Lymph # (Auto) 2.3 (1.2-4.9) X10*3/uL Elliott # (Auto) 0.7 (0.1-1.2) X10*3/uL Eos # (Auto) 0.5 H (0.0-0.4) X10*3/uL Baso # (Auto) 0.0 (0.0-0.2) X10*3/uL Abs Immat Gran (auto) 0.01 (0.00-0.03) X10*3/uL Absolute Neuts (auto) 5.3 (2.0-8.3) x10*3/uL Absolute Nucleated RBC 0.000 (0.0-0.012) X10*3/uL Nucleated RBC % (auto) 0.0 (0.0-0.2) /100WBC Sodium 137 (135-145) mmol/L Potassium 3.9 (3.3-5.1) mmol/L Chloride 107 (96-108) mmol/L Carbon Dioxide 23 (22-29) mmol/L Anion Gap 11 L (12-20) BUN 9 (9-16) mg/dL Creatinine 0.64 (0.5-1.4) mg/dL Estim Creat Clear Calc 97.6 Estimated GFR > 60 Random Glucose 100 (60-115) mg/dL Calcium 9.0 (8.4-10.2) mg/dL Magnesium 1.9 (1.6-2.6) mg/dL Total Bilirubin 0.2 (0.0-1.0) mg/dL Direct Bilirubin < 0.2 (0.0-0.5) mg/dL AST 16 (5-31) U/L ALT 12 (0-31) U/L Alkaline Phosphatase 56 (39-117) U/L Total Protein 7.1 (6.5-8.0) g/dL Albumin 4.5 (3.5-5.0) g/dL Urine Color Yellow Urine Appearance Clear Urine pH 5.5 (5.0-9.0) Ur Specific [place] 1.015 (1.005-1.025) Urine Protein Negative (Neg-Trace) mg/dL Urine Glucose (UA) Negative (Negative) mg/dL Urine Ketones Negative (Negative) mg/dL Urine Blood Trace H (Negative) Urine Nitrite Negative (Negative) Ur Leukocyte Esterase Negative (Negative) Urine RBC 0-2 (0-2) /HPF Urine WBC 0-5 (0-5) /HPF Ur Squamous Epith Cells 0-2 (0-2) /HPF Urine Bacteria Trace (None Seen) Hyaline Casts 0-2 (0-2) /LPF Urine Test NEGATIVE (NEGATIVE) Independent Interpretation I performed an independent interpretation of an: EKG Interpretation: My independent interpretation of the ECG reveals normal sinus rhythm with rate of 84, normal axis, normal intervals, no ST elevations or depressions to suggest ischemic changes, relatively unchanged from previous on 10/24/2024. Independent Historian Clinical information obtained from an independent historian. History obtained from or confirmed by: Friend External Record Review External record reviewed: Inpatient record Prescription Management I considered prescription management with: Pain Medication Chronic Conditions Patient?s care impacted by: Other (Somatization disorder, PTSD, migraines, SVT) Social Determinants Patient?s care significantly limited by Social Determinants of Health including: Other Social Determinant of Health Discharge Plan Discharge Clinical Impression: Vasovagal syncopes, Chronic bilateral low back pain, Lumbar disc disease with radiculopathy Patient Disposition: Home, Self-Care Instructions: Lumbar Disc Herniation (ED), Syncope (ED) Additional Instructions: Take your medications as prescribed when you get home. You were given a dose of these medications tonight see do not have to take them tonight but start them tomorrow. Return to the ER with any new or worsening symptoms including: Fevers greater than 100?, worsening pain despite medication, passing out, numbness/tingling/weakness of your legs, loss of bowel or bladder control, any new symptom that concerns you. Prescriptions: No Action cholecalciferol (vitamin D3) 25 mcg (1,000 unit) capsule 25 mcg PO DAILY MDD 1000 unit 90 Days Qty: 90 0RF Rx Instructions: take one capsule daily by mouth at bedtime. gabapentin 300 mg capsule 300 mg PO BID ferrous sulfate 325 mg (65 mg iron) tablet 325 mg PO DAILY MDD 325mg 90 Days Qty: 90 3RF Rx Instructions: take one tablet daily by mouth with 1/2 glass of orange juice at lunchtime. If you have stiff stools, remember to drink plenty of water daily. mecobalamin (vitamin B12) 1,000 mcg tablet,chewable 1,000 mcg PO DAILY MDD 1000mcg 90 Days Qty: 90 0RF cephalexin 500 mg capsule 500 mg PO TID 7 Days Qty: 21 0RF ondansetron 4 mg tablet,disintegrating 4 mg PO Q8H 3 Days Qty: 9 0RF [id number] [Fioricet] 50-300-40 mg capsule 1 cap PO TID PRN (Reason: pain) Qty: 14 0RF ibuprofen 600 mg tablet 600 mg PO Q8H PRN (Reason: fever or pain) Qty: 30 0RF acetaminophen 500 mg capsule 1,000 mg PO .q8 PRN (Reason: fever or pain) Qty: 30 0RF acetaminophen 325 mg capsule 650 mg PO Q6H PRN (Reason: pain) Qty: 30 0RF triamcinolone acetonide 0.1 % cream 1 appl topical BID adapalene 0.1 % gel 1 appl topical BEDTIME benzoyl peroxide 2.5 % cleanser 1 appl topical BID medroxyprogesterone [Depo-Provera] 150 mg/mL suspension 150 mg IM [id number] albuterol sulfate [Ventolin HFA] 90 mcg/actuation HFA aerosol inhaler 2 puff inhalation Q6H PRN (Reason: dyspnea) Interventions: ED Discharge Assessment Last Done: 01/27/25 22:47 Discharge Date/Time: 01/27/25 22:49 Print Language: Martiniquais
[2025-01-27 17:57] VITALS: BP 129/77; PULSE 119; RESP 16; TEMP 36.3; O2SAT 99; BMI 23.8
--- NOTE | 2025-01-27 18:00 | ECG_ITS ---
Test Reason : SYNCOPE Blood Pressure : */* mmHG Vent. Rate : 84 BPM Atrial Rate : 84 BPM P-R Int : 112 ms QRS Dur : 74 ms QT Int : 348 ms P-R-T Axes : 64 42 70 degrees QTcB Int : 411 ms Normal sinus rhythm Normal ECG When compared with ECG of 24-Oct-2024 15:19, No significant change was found Referred By: Maye Franz Electronically Signed By: Clark Coy
[2025-01-27 18:20] VITALS: BP 116/67; PULSE 89
[2025-01-27 18:21] VITALS: BP 100/70; PULSE 108
[2025-01-27 18:22] VITALS: BP 103/72; PULSE 107
[2025-01-27 19:00] LABS: Appearance Urine Clear; Glucose Urine UA Negative (Negative); PH 5.5 (5.0-9.0); Specific Gravity - Urine 1.015 (1.005-1.025); UMIC TRIGGER UACC YES
[2025-01-27 19:02] LABS: UPreg QC Valid YES
--- OUTSIDE RECORDS SUMMARY | 2025-01-27 19:27 | XMS_ITS | Encounter Summary ---
Author Organization [facility] Address [address] [place] [address] Care Team Providers Care Correctional Program Officer Name Role Phone Latesha France MD Primary Care Provider [phone]- [phone] Reason for Visit * Reason Onset Date Comments Med Refill 01/25/2024 Disregard put in to system in older epic for refill Encounter Details Date Type Department Care Team (Late Contact Info) Description 01/25/2024 Telephone Adult Medicine [facility] [address] [place] [address] Latesha France MD 444 [place] [address] Social History Tobacco Use Types Packs/Day Years [...] Info) Description 01/29/2025 3:30 PM EST Treatment [address] [address] Breana Quintanilla, PT 02/04/2025 1:00 PM EST Clinical Support Obstetrics and Gynecology - [address] [address] 02/05/2025 3:00 PM EST Treatment [facility] [address] [address] Holden Toribio, BILLING AND QUALITY TECHNICIAN 02/12/2025 3:00 PM EST Treatment [facility] [address] [address] Holden Toribio, BILLING AND QUALITY TECHNICIAN 02/19/2025 4:00 PM EST Treatment [facility] [address] [address] Breana Quintanilla, PT 02/26/2025 4:30 PM EST Treatment [address] [address] Breana Quintanilla, PT 03/22/2025 3:00 PM EST Office Visit Adult Medicine [facility] 444 [place] [address] Latesha France MD 444 [place] [address] 04/22/2025 11:10 AM EST Consult [facility] 154 300 [facility] 154 [place] [phone] Romeo Renee MD [address] [place] [address] 410 [place] [phone] 06/13/2025 2:30 PM EDT Office Visit Pulmonology - [place] 175 [facility] 200 [place] [phone] Jennifer Kaufman MD 230 [place] [address] 06/26/2025 1:40 PM EDT Office Visit Gastroenterology - 299 [facility] 299 [facility] 419 [place] [address] Yanet Guy, LEANA [address] [place] [address] documented as of this encounter Visit Diagnoses Not on filedocumented in this encounter Additional Health Concerns Infection Onset Date Last Indicated Resolved Time Respiratory Rule-Out 05/22/2024 05/22/2024 025 7:00 PM EST C. difficile Rule-Out 05/23/2024 05/22/20242024 4:54 PM EST documented as of this encounter Care Teams Correctional Program Officer Relationship Specialty Start Date End Date Latesha France MD [address] [place] [address] PCP - General Internal Medicine 02/13/24 documented as of this encounter
--- OUTSIDE RECORDS SUMMARY | 2025-01-27 19:27 | XMS_ITS | Encounter Summary ---
Author Organization [facility] Address [address] [place] [address] Care Team Providers Care Radiologic Technologist Name Role Phone Latesha France MD Primary Care Provider [phone]- [phone] Reason for Visit * Reason Onset Date Comments Dizziness 01/10/2025 Nausea 01/10/2025 Abdominal Pain 01/10/2025 Encounter Details Date Type Department Care Team (Late st Contact Info) Description 01/10/2025 Telephone Adult Medicine [facility] 444 [place] [address] Latesha France MD 444 [place] [address] Social History Tobacco Use Types Packs/Day Years [...] Her bp has dropped, it was on pm 92/47 p71 She feels Med not helping, after eating she feels nauseated Med: Baclofen 10 mg 1.5 mg, three times a day Was seen by Sebastián at [facility] she eulogio call them and let [...] traveled recently to another state outside of [place], [place], [place], [place], [place], [place], [place]? no o If yes, did you quarantine [...] yes, gather 3rd republican insurance information Third Republican Information: not applicable PCP: Latesha France MD Payor: [employer] HE[employer] / Plan: [employer] MEDICAID / Product Type: *No Product type* / documented in this encounter Plan of Treatment Upcoming Encounters Date Type Department Care Team (Late st Contact Info) Description 01/29/2025 3:30 PM EST [facility] [address] [address] Breana Quintanilla, PT 02/04/2025 1:00 PM EST Clinical Support Obstetrics and Gynecology [facility] [address] [place] [address] 02/05/2025 3:00 PM EST Treatment [address] [address] Holden Toribio, SNUBBER 02/12/2025 3:00 PM EST Treatment [address] [address] Holden Toribio, SNUBBER 02/19/2025 4:00 PM EST Treatment [address] [address] Breana Quintanilla, PT 02/26/2025 4:30 PM EST Treatment [address] [address] Breana Quintanilla, PT 03/22/2025 3:00 PM EST Office Visit Adult Medicine [place] - [address] [phone] Latesha France MD 4 [place] [address] 04/22/2025 11:[address] [facility] - [facility] 154 300 [facility] 154 [place] [phone] Romeo Renee MD [address] [place] [address] [facility] 410 [place] [address] 06/13/2025 2:30 PM EDT Office Visit Pulmonology - [place] 175 [facility] 200 [place] [address] Jennifer Kaufman MD [address] [place] [phone] 06/26/2025 1:40 PM EDT Office Visit Gastroenterology - 299 [place] 299 [facility] [address] [place] [address] Yanet Guy NP [address] [place] [phone] documented as of this encounter Goals Goal [...] on filedocumented in this encounter Care Teams Radiologic Technologist Relationship Specialty Start Date End Date Latesha France MD [address] [place] [address] PCP - General Internal Medicine 02/13/24 documented as of this encounter
--- OUTSIDE RECORDS SUMMARY | 2025-01-27 19:27 | XMS_ITS | Encounter Summary ---
Author Organization [facility] Address [address] [place] [address] Care Team Providers Care Shuttle Veneering Supervisor Name Role Phone Latesha France MD Primary Care Provider [phone]- [phone] Reason for Visit * Reason Onset Date Comments Hypotension 03/19/2024 Encounter Details Date Type Department Care Team (Late st Contact Info) Description 03/19/2024 Nurse Triage Adult Medicine [facility] 444 [place] [address] Latesha France MD 444 [place] [address] Social History Tobacco Use Types Packs/Day Years [...] to another state outside of [place], [place], [place], [place], [place], [place], [place]? no o If yes, did [...] not applicable PCP: Latesha France MD Payor: [employer] PL[employer] / Plan: [employer] MEDICAID / Product Type: *No Product type* / documented in this encounter Plan of Treatment Upcoming Encounters Date Type Department Care Team (Late st Contact Info) Description 01/29/2025 3:30 PM EST Treatment [address] [address] Breana Quintanilla, PT 02/04/2025 1:00 PM EST Clinical Support Obstetrics and Gynecology - [address] [address] 02/05/2025 3:00 PM EST Treatment [address] [address] Holden Toribio, PRISON GUARD 02/12/2025 3:00 PM EST Treatment [address] [address] Holden Toribio, PRISON GUARD 02/19/2025 4:00 PM EST Treatment [address] [address] Breana Quintanilla, PT 02/26/2025 4:30 PM EST Treatment [address] [address] Breana Quintanilla, PT 03/22/2025 3:00 PM EST Office Visit Adult Medicine [facility] 444 [facility] [place] [address] Latesha France MD [address] [place] [address] 04/22/2025 11:10 AM EST Consult [facility] - [facility] 154 300 [facility] 154 [place] [address] Romeo Renee MD [address] [place] [address] Dr Romero 410 [place] [address] 06/13/2025 2:30 PM EDT Office Visit Pulmonology - [place] 175 [facility] 200 [place] [address] Jennifer Kaufman MD 230 [place] [address] 06/26/2025 1:40 PM EDT Office Visit Gastroenterology - 299 [facility] 299 [facility] 419 [place] [address] Yanet Guy NP 230 [place] [address] documented as of this encounter Visit Diagnoses Not on filedocumented in this encounter Additional Health Concerns Infection Onset Date Last Indicated Resolved Time Respiratory Rule-Out 05/22/2024 05/22/2024 025 7:00 PM EST C. difficile Rule-Out 05/23/2024 05/22/20242024 4:54 PM EST documented as of this encounter Care Teams Shuttle Veneering Supervisor Relationship Specialty Start Date End Date Latesha France MD [address] [place] [address] PCP - General Internal Medicine 02/13/24 documented as of this encounter
--- OUTSIDE RECORDS SUMMARY | 2025-01-27 19:27 | XMS_ITS | Encounter Summary ---
Author Organization [facility] Address [address] [place] [address] Care Team Providers Care Quill Cleaner Name Role Phone Latesha France MD Primary Care Provider [phone] Reason for Visit * Reason Onset Date Comments Passing Out 01/11/2025 Encounter Details Date Type Department Care Team ([facility] st Contact Info) Description 01/11/[address] [facility] [address] [place] [address] [place] [phone] Maria Eugenia Mccartney MD [address] [place] [address] Dr Romero 410 [place] [phone] Social History Tobacco Use Types Packs/Day Years [...] as of this encounter Progress Notes * [place] - 01/22/2025 9:46 AM EDT Epeval scheduled with Dr Renee on Tuesday2025 at 11:10 AM. I spoke with Gabrielle and mailed an appointment reminder. I have also added her to my cancellation list for both Dr Renee and Dr Bond. * Demi Martin RN - 01/16/2025 11:22 [...] and was passed out for 15 minutes. Iris reported she is staying hydrated, eating small [...] She would like a call back at [phone]. documented in this encounter Plan of Treatment Upcoming Encounters Date Type Department Care Team (Late st Contact Info) Description 01/29/2025 3:30 PM EST Treatment [address] [address] Breana Quintanilla, PT 02/04/2025 1:00 PM EST Clinical Support Obstetrics and Gynecology - [address] [address] 02/05/2025 3:00 PM EST Treatment [address] [address] Holden Toribio, CLINICAL RESEARCH MANAGER 02/12/2025 3:00 PM EST Treatment [address] [address] Holden Toribio, CLINICAL RESEARCH MANAGER 02/19/2025 4:00 PM EST Treatment [facility] 175 [facility] 350 [place] [address] Breana Quintanilla, PT 02/26/2025 4:30 PM EST Treatment [facility] 175 [facility] 350 [place] [address] Breana Quintanilla, PT 03/22/2025 3:00 PM EST Office Visit Adult Medicine [facility] 444 [place] [address] Latesha France MD 444 [place] [address] 04/22/2025 11:[address] [facility] - [facility] 154 300 [facility] 154 [place] [address] Romeo Renee MD [address] [place] [address] 410 [place] [address] 06/13/2025 2:30 PM EDT Office Visit Pulmonology - [place] 175 [facility] 200 [place] [address] Jennifer Kaufman MD 230 [place] [phone] 06/26/2025 1:40 PM EDT Office Visit Gastroenterology - [address] [facility] 299 [facility] 419 [place] [address] Yanet Guy NP 230 [place] [address] documented as of this encounter Goals Goal [...] day. added in this encounter Care Teams Quill Cleaner Relationship Specialty Start Date End Date Latesha France MD [address] [place] [address] PCP - General Internal Medicine 02/13/24 documented as of this encounter
--- OUTSIDE RECORDS SUMMARY | 2025-01-27 19:27 | XMS_ITS | Encounter Summary ---
Author Organization [facility] Address [address] [place] [address] Care Team Providers Care Tonal Regulator Name Role Phone Latesha France MD Primary Care Provider [phone]- [phone] Reason for Visit * Reason Onset Date Comments Abdominal Pain 04/25/2024 Diarrhea 04/25/2024 Encounter Details Date Type Department Care Team (Late st Contact Info) Description 04/25/2024 Nurse Triage Adult Medicine [facility] 444 [place] [address] Latesha France MD 444 [place] [address] Social History Tobacco Use Types Packs/Day Years [...] traveled recently to another state outside of [place], [place], [place], [place], [place], [place], [place]? no o If yes, did you [...] not applicable PCP: Latesha France MD Payor: [facility] HLTH PLAN / Plan: [employer] MEDICAID / Product Type: *No Product type* / documented in this encounter Plan of Treatment Upcoming Encounters Date Type Department Care Team (Late st Contact Info) Description 01/29/2025 3:[address] [facility] [address] [address] Breana Quintanilla, PT 02/04/2025 1:00 PM EST Clinical Support Obstetrics and Gynecology - [address] [address] 02/05/2025 3:00 PM EST Treatment [facility] [address] [address] Holden Toribio, LAW INSTRUCTOR 02/12/2025 3:00 PM EST Treatment [facility] [address] [address] Holden Toribio, LAW INSTRUCTOR 02/19/2025 4:00 PM EST Treatment [facility] [address] [address] Breana Quintanilla, PT 02/26/2025 4:30 PM EST Treatment [facility] [address] [address] Breana Quintanilla, PT 03/22/2025 3:00 PM EST Office Visit Adult Medicine [facility] 444 [place] [address] Latesha France MD 444 [place] [address] 04/22/2025 11:10 AM EST Consult [facility] - [facility] 154 300 [facility] 154 [place] [address] Romeo Renee MD [address] [place] [address] 410 [place] [address] 06/13/2025 2:30 PM EDT Office Visit Pulmonology - [place] 175 [facility] 200 [place] [address] Jennifer Kaufman MD 230 [place] [address] 06/26/2025 1:40 PM EDT Office Visit Gastroenterology - 299 [facility] 299 [facility] 419 [place] [address] Yanet Guy NP 230 [place] [address] documented as of this encounter Visit Diagnoses Not on filedocumented in this encounter Additional Health Concerns Infection Onset Date Last Indicated Resolved Time Respiratory Rule-Out 05/22/2024 05/22/2024 025 7:00 PM EST C. difficile Rule-Out 05/23/2024 05/22/20242024 4:54 PM EST documented as of this encounter Care Teams Tonal Regulator Relationship Specialty Start Date End Date Latesha France MD [address] [place] [address] PCP - General Internal Medicine 02/13/24 documented as of this encounter
--- OUTSIDE RECORDS SUMMARY | 2025-01-27 19:27 | XMS_ITS | Clinical Summary ---
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 For 2 weeks 30 g 2 025 Active medroxyPROGESTERo ne (Depo-Provera) 150 mg/mL injection Inject 1 mL (150 mg total) into the shoulder, thigh, or buttocks every 3 (three) months. 1 mL 3 025 Active ZOLMitriptan (ZOMIG) 2.5 mg tablet Take 1 tablet (2.5 mg total) by mouth 1 (one) time if needed for migraine. May repeat once after 2 hours. 18 tablet 3 025 2025 Active albuterol HFA (Ventolin HFA) 90 mcg/actuation inhaler Inhale 2 puffs by mouth every 6 (six) hours if needed for shortness of breath. 8 g 1 025 2025 Active cholecalciferol (VITAMIN D-3) 50 mcg (2,000 unit) capsule Take 1 capsule (2,000 Units total) by mouth 1 (one) time each day. 30 each 11 025 2025 Active ibuprofen (ADVIL,MOTRIN) 600 mg tablet Take 1 tablet (600 mg total) by mouth every 8 (eight) hours if needed for mild pain or moderate pain (pain). 60 tablet 2 Active gabapentin (NEURONTIN) 300 mg capsule Take 1 capsule (300 mg total) by mouth at bedtime. Active ondansetron ODT (ZOFRAN-ODT) 4 mg disintegrating tablet Dissolve 1 tablet (4 mg total) on top of the tongue every 8 (eight) hours if needed for nausea or vomiting. 20 tablet 3 Active diclofenac (VOLTAREN) 50 mg EC tablet Take 1 tablet (50 mg total) by mouth 2 (two) times a day if needed (pain). Do not crush, chew, or split. 28 tablet 1 025 2024 Active sertraline (ZOLOFT) 25 mg tablet Take 1 tablet (25 mg total) by mouth 1 (one) time each day. Active baclofen (LIORESAL) 10 mg tablet Take 1 tablet (10 mg total) by mouth 3 (three) times a day. Active sodium chloride (OCEAN) 0.65 % nasal spray Administer 1 spray into each nostril if needed for congestion. 15 mL 5 025 2025 Active fluticasone propionate (FLONASE) 50 mcg/actuation nasal spray Administer 1 spray into each nostril 1 (one) time each day. Shake gently. Before first use, prime pump. After use, clean tip and replace cap. 16 mL 3 Active benzoyl peroxide (Acne Medication) 2.5 % gel Apply 1 g topically 2 times daily as needed (acne). 30 g 4 Active methylPREDNISolon e (MEDROL DOSPAK) 4 mg tablet Take as directed on package. 21 tablet 2024 Active cyclobenzaprine (FLEXERIL) 5 mg tablet Take 1 tablet (5 mg total) by mouth at bedtime as needed for muscle spasms. 30 tablet 025 2024 Active fluticasone propionate (FLONASE) 50 mcg/actuation nasal spray SPRAY 2 SPRAYS INTO EACH NOSTRIL EVERY DAY SHAKE GENTLY. CLEAN TIP AND REPLACE CAP AFTER USE. 16 mL 3 025 2024 Discontinued(R eorder) sodium chloride (OCEAN) 0.65 % nasal spray Administer 1 spray into each nostril if needed for congestion. 15 mL 5 025 2024 Discontinued(R eorder) benzoyl peroxide (Acne Medication) 2.5 % gel Apply 1 g topically 2 times daily as needed (acne). 30 g 4 025 2024 Discontinued(R eorder) PHENobarbitaL 30 mg tablet Take 1 tablet (30 mg total) by mouth 1 (one) time each day. 2024 Discontinued predniSONE (DELTASONE) 20 mg tablet Take 60 mg PO daily for 3 days, then take 40 mg PO daily for 3 days, then 20 mg PO daily for 3 days, then stop 18 tablet 2024 Discontinued Active Problems Problem Noted Date Diagnosed Date Allergies 01/25/2025 Acne 01/25/2025 Nausea 01/25/2025 SOB [...] Encounters Date Type Department Care Team Description 01/25/2025 2:45 PM EDT Lab Draw Station - [address] Vitamin B12 deficiency; Vitamin D deficiency 01/25/2025 2:30 PM EDT - 01/25/2025 11:59 PM EDT Hospital Encounter XRAY - [address] [phone] Bilateral hand numbness Discharge Disposition: Home or Self Care 01/25/2025 2:00 PM EDT Office Visit [facility] [place] - [address] [phone] Latesha France MD Nausea (Primary Dx); Acne, unspecified acne type; Allergy, subsequent encounter; Psychogenic nonepileptic seizure; Syncope, unspecified syncope type; SOB (shortness of breath); Osteoarthritis of lumbar spine, unspecified spinal osteoarthritis complication status; Chronic low back pain, unspecified back pain laterality, unspecified whether sciatica present; Osteoarthritis of thoracic spine, unspecified spinal osteoarthritis complication status; Bilateral hand numbness; Increased sputum production; Chest pain, unspecified type 01/23/2025 3:06 PM EDT - 01/23/2025 11:59 PM EDT Hospital Encounter Radiology Department - [address] [phone] Radiculopathy, lumbar region Discharge Disposition: Home or Self Care 01/22/2025 3:00 PM EDT Treatment [address] [phone] Holden Toribio, HEAVY RAIL TRAIN OPERATOR Lumbar spondylosis (Primary Dx) 01/21/2025 Telephone Adult [address] [phone] Latesha France MD 01/16/[address] [phone] Trudi Landaverde RN 01/15/2025 Results Follow-Up [address] [phone] Latesha France MD 01/11/[address] [phone] Latesha France MD 01/11/2025 Telephone [facility] [address] [place] [phone] Maria Eugenia Mccartney MD 01/10/[address] [phone] Latesha France MD 01/07/[address] [phone] Tayler Mandujano MA 12/31/2024 3:00 PM EDT Evaluation [facility] [address] [phone] Mandie, Bridgett, PT Lumbar spondylosis (Primary Dx); Chronic bilateral low back pain, unspecified whether sciatica present 12/31/2024 Telephone Adult Medicine [address] [phone] Latesha France MD 12/19/2024 3:10 PM EDT Office Visit [facility] [address] [place] [phone] Yamilex Eagle NP Syncope, unspecified syncope type (Primary Dx); Chest pain, unspecified type 12/18/2024 Telephone Infectious Disease [address] [phone] Daphney Stover MA 12/17/2024 3:00 PM EDT Lab Draw Station [address] SOB (shortness of breath) 12/17/2024 2:30 PM EDT Office Visit Obstetrics and Gynecology - [address] [phone] Sally Kinney CNM Breakthrough bleeding on depo provera (Primary Dx) 12/17/2024 Telephone Adult Medicine [address] [phone] aLtesha France MD 12/14/2024 3:30 PM EDT Procedure visit Pulmonology [address] [phone] SOB (shortness of breath) 12/14/2024 3:00 PM EDT Consult Pulmonology [address] [phone] Jennifer Kaufman MD SOB (shortness of breath) (Primary Dx); Snoring 12/13/2024 1:44 PM EDT - 12/13/2024 11:59 PM EDT Hospital Encounter XRAY - [address] [phone] Upper back pain Discharge Disposition: Home or Self Care 12/07/2024 Telephone Adult Medicine [address] [phone] Tayler Mandujano MA 11/30/2024 10:30 AM EDT Office Visit Adult [address] [phone] Latesha France MD Paresthesia of both legs (Primary Dx); Constipation, unspecified constipation type; Loss of consciousness (CMS/HCC V24, CMS/HCC V28); Osteoarthritis of lumbar spine, unspecified spinal osteoarthritis complication status; Low back pain, unspecified back pain laterality, unspecified chronicity, unspecified whether sciatica present; Upper back pain; Rib pain; SOB (shortness of breath); Mitral valve insufficiency, unspecified etiology 11/30/2024 Telephone [facility] 154 300 [facility] 154 [place] [phone] Yamilex Eagle NP 11/23/2024 3:14 PM EDT - 11/23/2024 11:59 PM EDT Hospital Encounter XRAY [address] [phone] Pain Discharge Disposition: Home or Self Care 11/22/2024 Telephone Obstetrics and [address] [phone] Sally Kinney CNM 11/22/2024 Telephone Adult Medicine [address] [phone] Latesha France MD 11/20/2024 Telephone Adult Medicine [address] [phone] Latesha France MD 11/19/2024 Telephone Obstetrics and [address] [phone] Gemini Bazzi CNM 11/15/2024 Telephone Adult Medicine [address] [phone] Latesha France MD 11/14/2024 Telephone Obstetrics and [address] [phone] Sally Kinney CNM 11/12/2024 1:00 PM EDT Clinical Support Obstetrics and [address] [phone] Encounter for management and injection of depo-Provera (Primary Dx) 11/09/2024 7:20 AM EDT - 11/09/2024 11:59 PM EDT Hospital Encounter [facility] Pulmonary [address] [place] [phone] Discharge Disposition: Home or Self Care 11/07/2024 Telephone Obstetrics and [address] [phone] Sally Kinney CNM 11/06/2024 8:30 AM EDT Office Visit [address] [phone] Latesha France MD Enlarged tonsils (Primary Dx); Sore throat; Localized swelling on left hand 11/05/2024 Telephone Obstetrics and [address] [phone] Sally Kinney CNM 11/02/[address] [phone] Latesha France MD 11/01/[address] [phone] Latesha France MD 10/31/2024 1:39 PM EDT - 10/31/2024 11:59 PM EDT Hospital Encounter [address] [phone] SOB (shortness of breath) Discharge Disposition: Home or Self Care 10/31/2024 1:00 PM EDT Office Visit [address] [phone] Latesha France MD Psychogenic nonepileptic seizure (Primary Dx); Vitamin D deficiency; SOB (shortness of breath) 10/29/[address] [phone] Latesha France MD from Last 3 Months [...] F) 01/25/2025 1:36 PM EDT Respiratory Rate 14 12/17/2024 2:13 PM EDT Oxygen Saturation 98% 12/19/2024 2:26 PM EDT Inhaled Oxygen Concentration - - Weight 51.3 kg (113 lb) 01/25/2025 1:36 PM EDT Height 149.9 cm (4' 11 ) 01/25/2025 1:36 PM EDT Body Mass Index 22.82 01/25/2025 1:36 PM EDT Plan of Treatment Upcoming Encounters Date Type Department Care Team (Late st Contact Info) Description 01/29/2025 3:30 PM EST Treatment [facility] [address] [phone] Breana Quintanilla, PT 02/04/2025 1:00 PM EST Clinical Support Obstetrics and Gynecology [address] [phone] 02/05/2025 3:00 PM EST Treatment [address] [phone] Holden Toribio, HEAVY RAIL TRAIN OPERATOR 02/12/2025 3:00 PM EST Treatment [address] [phone] Holden Toribio, HEAVY RAIL TRAIN OPERATOR 02/19/2025 4:00 PM EST Treatment [address] [phone] Breana Quintanilla, PT 02/26/2025 4:30 PM EST Treatment [address] [phone] Breana Quintanilla, PT 03/22/2025 3:00 PM EST Office Visit Adult Medicine [place] - [address] [phone] Latesha France MD [address] [place] [address] 04/22/2025 11:10 AM EST Consult [facility] - [facility] 154 300 [facility] 154 [place] [phone] Romeo Renee MD [address] [place] [address] [address] [place] [phone] 06/13/2025 2:30 PM EDT Office Visit Pulmonology - [place] 175 [facility] 200 [place] [phone] Jennifer Kaufman MD [address] [place] [phone] 06/26/2025 1:40 PM EDT Office Visit Gastroenterology - [address] [facility] [address] [place] [phone] Yanet Guy NP [address] [place] [phone] Health Maintenance Due Date Last Done Comments [...] 01/25/2025 2:47 PM EDT Vitamin B12 deficiency XR HAND 3+ VIEWS BILAT Routine 2:42 PM EDT Bilateral hand numbness MR LUMBAR SPINE WO CONTRAST Routine 01/23/2025 4:27 PM EDT Radiculopathy, lumbar region VITAMIN D 25 HYDROXY Routine 01/09/2025 3:18 [...] Recently Relevant to Health Maintenance Results * (ABNORMAL) Vitamin D 25 hydroxy (01/25/2025 2:47 PM EDT) Only the most recent of3 resultswithin the time period is included. Pathologist [facility] Vit D, 25-Hydroxy 27.0(L) 30.0 - 80.0 ng/mL LAB CHEMISTRY METHOD 01/25/2025 7:35 PM EDT [facility] Blood Venous blood specimen / Unknown Venipuncture / Unknown 01/25/2025 2:47 PM EDT 01/25/2025 2:47 PM EDT us Latesha France MD LAB BLOOD ORDERABLES Final Result [facility] [address] [place] [address], * Vitamin B12 (01/25/2025 2:47 PM EDT) Vitamin B-12 420 250 - 900 pcg/mL LAB CHEMISTRY METHOD 01/25/2025 7:37 PM EDT [facility] Blood Venous blood specimen / Unknown Venipuncture / Unknown 01/25/2025 2:47 PM EDT 01/25/2025 2:47 PM EDT us Latesha France MD LAB BLOOD ORDERABLES Final Result [facility] [address] [place] [address], [place] [phone] * XR Hand 3+ Views bilat (01/25/2025 [...] Signed Date: 01/26/2025 09:46 ET Workstation ID: [id number] Transcribed By: Self Edit Transcribed Date: 01/26/2025 [...] Dictated Date: 01/26/2025 09:43 ET Assigned Physician: eMrle Rao Reviewed and Electronically Signed By: Merle Rao Signed Date: 01/26/2025 09:46 ET Workstation ID: [id number] Transcribed By: Self Edit Transcribed Date: 01/26/2025 09:43 ET us Latesha France MD IMG XR PROCEDURES Final Res ult * MR Lumbar Spine wo Contrast (01/23/2025 [...] Signed Date: 01/24/2025 17:19 ET Workstation ID: [id number] Transcribed By: Self Edit Transcribed Date: 01/24/2025 [...] changes with central disc protrusion at L4- T2rhacdumzm in moderate bilateral neuroforaminal stenosis and moderatespinal canal stenosis -------- FINAL REPORT -------- Dictated By: Courtney Prakash Dictated Date: 01/24/2025 17:10 ET Assigned Physician: Courtney Prakash Reviewed and Electronically Signed By: Courtney Prakash Signed Date: 01/24/2025 17:19 ET Workstation ID: [id number] Transcribed By: Self Edit Transcribed Date: 01/24/2025 17:10 ET Sebastián JONES IMG MRI PROCEDURES Final Resul t * External Neurology Report (12/25/2024) Provider [facility] NEUROLOGY ORDERABLES Fin al Result * External Neurology Report (12/24/2024) Provider [facility] NEUROLOGY ORDERABLES Fin al Result * Trichomonas vaginalis antigen (12/17/2024 3:13 PM EDT) Trichomonas vaginalis Negative Negative 12/17/2024 7:16 PM EDT [facility] Swab Vaginal structure / Unknown Non-blood Collection / Unknown 12/17/2024 3:13 PM EDT 12/17/2024 3:13 PM EDT Sally ALLEN LAB MICROBIOLOGY - GENERAL RITA MUÑIZ Final Result [facility] [address] [place] [address], * Chlamydia trachomatis and Neisseria gonorrhoeae molecular study (12/17/2024 3:13 PM EDT) Neisseria gonorrhoeae PCR Negative Negative LAB MOLECULAR DIAGNOSTICS METHOD 12/18/2024 9:04 AM EDT [facility] Chlamydia trachomatis PCR Negative Negative LAB MOLECULAR DIAGNOSTICS METHOD 12/18/2024 9:04 AM EDT [facility] Swab Cervix uteri structure / Unknown Non-blood Collection / Unknown 12/17/2024 3:13 PM EDT 12/17/2024 3:13 PM EDT Sally ALLEN LAB MICROBIOLOGY - GENERAL ORDE RABLES Final Result Performing Organization Address [facility]/ZIP Co de Phone Number [facility] [address] [place] [address], [place] [phone] * Culture urine (12/17/2024 3:13 PM EDT) Culture, Urine <10,000 CFU/mL gram negative bacilli, insignificant count, no further workup 12/18/2024 1:42 PM EDT [facility] Urine Urine specimen obtained by clean catch procedure / Unknown Non-blood Collection / Unknown 12/17/2024 3:13 PM EDT 12/17/2024 3:13 PM EDT Sally ALLEN LAB MICROBIOLOGY - GENERAL ORDE RABANGELIC Final Result Performing Organization Address [facility]/ZIP Co de Phone Number [facility] [address] [place] [address], [place] [phone] * (ABNORMAL) CBC auto differential (12/17/2024 3:12 PM EDT) WBC 7.8 4.8 - 10.8 K/mcL LAB HEMETOLOGY METHOD 12/17/2024 4:26 PM EDT [facility] RBC 4.50 3.80 - 4.80 M/mcL LAB HEMETOLOGY METHOD 12/17/2024 4:26 PM EDT [facility] Hemoglobin 13.5 11.5 - 16.0 g/dL LAB HEMETOLOGY METHOD 12/17/2024 4:26 PM EDT [facility] Hematocrit 39.3 35.0 - 47.0 % LAB HEMETOLOGY METHOD 12/17/2024 4:26 PM [facility] MCV 87.9 79.0 - 98.0 FL LAB HEMETOLOGY METHOD 12/17/2024 4:26 PM [facility] MCH 30.2 27.0 - 32.0 pcg LAB HEMETOLOGY METHOD 12/17/2024 4:26 PM [facility] MCHC 34.4 32.0 - 37.0 g/dL LAB HEMETOLOGY METHOD 12/17/2024 4:26 PM [facility] RDW 11.8 11.0 - 15.0 % LAB HEMETOLOGY METHOD 12/17/2024 4:26 PM [facility] Platelets 277 130 - 400 K/mcL LAB HEMETOLOGY METHOD 12/17/2024 4:26 PM [facility] MPV 10.6 7.0 - 11.0 FL LAB HEMETOLOGY METHOD 12/17/2024 4:26 PM [facility] NRBC 0.0 <1.0 % LAB HEMETOLOGY METHOD 12/17/2024 4:26 PM [facility] NRBC Absolute 0.00 <0.10 K/mcL LAB HEMETOLOGY METHOD 12/17/2024 4:26 PM [facility] Neutrophils Relative 56.9 % LAB HEMETOLOGY METHOD 12/17/2024 4:26 PM [facility] Lymphocytes Relative 28.1 % LAB HEMETOLOGY METHOD 12/17/2024 4:26 PM [facility] Monocytes Relative 7.5 % LAB HEMETOLOGY METHOD 12/17/2024 4:26 PM [facility] Eosinophils Relative 7.1 % LAB HEMETOLOGY METHOD 12/17/2024 4:26 PM [facility] Basophils Relative 0.3 % LAB HEMETOLOGY METHOD 12/17/2024 4:26 PM EDT [facility] Immature Granulocytes Relative 0.1 % LAB HEMETOLOGY METHOD 12/17/2024 4:26 PM EDT [facility] Neutrophils Absolute 4.46 1.50 - 7.00 K/mcL LAB HEMETOLOGY METHOD 12/17/2024 4:26 PM EDT [facility] Lymphocytes Absolute 2.20 1.00 - 5.00 K/mcL LAB HEMETOLOGY METHOD 12/17/2024 4:26 PM EDT [facility] Monocytes Absolute 0.59 0.20 - 1.00 K/mcL LAB HEMETOLOGY METHOD 12/17/2024 4:26 PM EDT [facility] Eosinophils Absolute 0.56(H) 0.00 - 0.50 K/mcL LAB HEMETOLOGY METHOD 12/17/2024 4:26 PM EDT [facility] Basophils Absolute 0.02 0.00 - 0.20 K/mcL LAB HEMETOLOGY METHOD 12/17/2024 4:26 PM EDT [facility] Immature Granulocytes Absolute 0.01 0.00 - 0.03 K/mcL LAB HEMETOLOGY METHOD 12/17/2024 4:26 PM EDT [facility] Blood Venous blood specimen / Unknown Venipuncture / Unknown 12/17/2024 3:12 PM EDT 12/17/2024 3:12 PM EDT us Jennifer Kaufman MD LAB BLOOD ORDERABLES Final Resul t [facility] [address] [place] [address], * D-Dimer (12/17/2024 3:12 PM EDT) D-Dimer, Quant (D-DU) <150 <=230 ng/mL DDU LAB COAGULATION METHOD 12/17/2024 4:34 PM EDT [facility] Blood Venous blood specimen / Unknown Venipuncture / Unknown 12/17/2024 3:12 PM EDT 12/17/2024 3:12 PM EDT Narrative [facility] - 12/17/2024 4:34 PM EDT D-Dimer <230 ng/mL (D-Dimer units) is the threshold for exclusion of DVT/PE. D-Dimer may be elevated in: Critically ill, severely infected, trauma patients, DIC, acute CVA, acute CO, unstable angina, AF, old age, , and smoking. D-Dimer may be decreased with: Initiation of heparin therapy and oral anticoagulants. Jennifer Kaufman MD LAB BLOOD ORDERABLES Final Resul t [facility] [address] [place] [address], [place] [phone] * Pulmonary function testing: Nitric Oxide Gas [...] Signed Date: 12/13/2024 18:47 ET Workstation ID: [id number] Transcribed By: Self Edit Transcribed Date: 12/13/2024 [...] Signed Date: 12/13/2024 18:47 ET Workstation ID: [id number] Transcribed By: Self Edit Transcribed Date: 12/13/2024 [...] Signed Date: 11/23/2024 23:39 ET Workstation ID: [id number] Transcribed By: Self Edit Transcribed Date: 11/23/2024 [...] Signed Date: 11/23/2024 23:39 ET Workstation ID: [id number] Transcribed By: Self Edit Transcribed Date: 11/23/2024 [...] from the original result were not included. [facility] [address] [place] [id number] Pulmonary Functions Report Date of service: 11/09/24 [...] No pathogens isolated. 11/08/2024 10:35 AM EDT [facility] Swab Structure of anterior region of neck / Unknown Non-blood Collection / Unknown 11/06/2024 9:13 AM EDT 11/06/2024 9:13 AM EDT us Latesha France MD LAB MICROBIOLOGY - GENERAL ORDERABLES Final Result [facility] [address] [place] [address], [place] [phone] * XR Chest 2 Views (10/31/2024 1:52 PM EDT) Anatomical Region Laterality Modality Body Radiographic Domonique ging 10/31/2024 6:17 PM EDT Impressions 10/31/2024 6:17 PM EDT No acute cardiopulmonary process. -------- FINAL REPORT -------- Dictated By: Courtney Prakash Dictated Date: 10/31/2024 18:17 ET Assigned Physician: Courtney Prakash Reviewed and Electronically Signed By: Courtney Prakash Signed Date: 10/31/2024 18:17 ET Workstation ID: [id number] Transcribed By: Self Edit Transcribed Date: 10/31/2024 [...] Signed Date: 10/31/2024 18:17 ET Workstation ID: [id number] Transcribed By: Self Edit Transcribed Date: 10/31/2024 18:17 ET us Latesha France MD IMG XR PROCEDURES Final Res ult * Interferon gamma interpretation (10/31/2024 1:39 PM EDT) Pathologist [facility] Quantiferon Plus Interpretation Negative Negative LAB CHEMISTRY METHOD 11/02/2024 11:18 AM EDT [facility] Blood Venous blood specimen / Unknown Venipuncture / Unknown 10/31/2024 1:39 PM EDT 10/31/2024 1:39 PM EDT us Latesha France MD LAB BLOOD ORDERABLES Final Result Performing Organization Address City/[facility]/ZIP Co de Phone Number [facility] [address] [place] [address], [place] [phone] * Interferon gamma antigen 2 (10/31/2024 1:39 PM EDT) Blood Venous blood specimen / Unknown Venipuncture / Unknown 10/31/2024 1:39 PM EDT 10/31/2024 1:39 PM EDT us Latesha France MD LAB BLOOD ORDERABLES Final Result Performing Organization Address City/[facility]/ZIP Co de Phone Number [facility] [address] [place] [address], [place] [phone] * Interferon gamma antigen 1 (10/31/2024 1:39 PM EDT) Blood Venous blood specimen / Unknown Venipuncture / Unknown 10/31/2024 1:39 PM EDT 10/31/2024 1:39 PM EDT us Latesha France MD LAB BLOOD ORDERABLES Final Result Performing Organization Address City/[facility]/ZIP Co de Phone Number [facility] [address] [place] [address], [place] [phone] * Interferon gamma mitogen (10/31/2024 1:39 PM EDT) Blood Venous blood specimen / Unknown Venipuncture / Unknown 10/31/2024 1:39 PM EDT 10/31/2024 1:39 PM EDT us Latesha France MD LAB BLOOD ORDERABLES Final Result [facility] [address] [place] [address], [place] [phone] * Interferon gamma NIL (10/31/2024 1:39 PM EDT) Blood Venous blood specimen / Unknown Venipuncture / Unknown 10/31/2024 1:39 PM EDT 10/31/2024 1:39 PM EDT Latesha France MD LAB BLOOD ORDERABLES Final Result [facility] ([facility] [address] [place] [address], [place] [phone] * Myositis panel 3 (10/31/2024 1:39 PM [...] approved by the Food and Drug Administration. CO-2 Ab Negative Negative 11/16/2024 1:10 PM EDT [...] approved by the Food and Drug Administration. Anti-U1-SUPERVISOR SHUTTLE FITTING Ab <20 <20 Units 11/16/2024 1:10 PM [...] the Food and Drug Administration. Fibrillarin (U3 SUPERVISOR SHUTTLE FITTING) Ab Negative Negative 11/16/2024 1:10 PM EDT [facility] Comment: This test was developed and its performance characteristics determined by [facility]. It has not been cleared or approved by the Food and Drug Administration. Interpretation for Anti-Dottie-1, Umil-FEW-3teeyf, Anti-MDA-5, Anti-NXP-2, Anti-PM/Scl-100, Anti-SS-A 52 kD, Anti-U1 SUPERVISOR SHUTTLE FITTING: Negative: <20 Weak Positive: 20 - 39 Moderate Positive: 40 - 80 Strong Positive: >80 . Test Performed by: [facility] [address] [place] [address] Blood Venous blood specimen / Unknown Venipuncture / Unknown 10/31/2024 1:39 PM EDT 10/31/2024 1:39 PM EDT us Latesha France MD LAB BLOOD ORDERABLES Final Result [facility] [address] [place] [address] * Basic metabolic panel (10/31/2024 1:39 PM EDT) Sodium 136 133 - 145 mmol/L LAB CHEMISTRY METHOD 10/31/2024 4:33 PM [facility] Potassium 4.6 3.5 - 5.5 mmol/L LAB CHEMISTRY METHOD 10/31/2024 4:33 PM [facility] Chloride 103 96 - 110 mmol/L LAB CHEMISTRY METHOD 10/31/2024 4:33 PM [facility] CO2 29 21 - 32 mmol/L LAB CHEMISTRY METHOD 10/31/2024 4:33 PM [facility] Anion Gap 4 3 - 11 LAB CHEMISTRY METHOD 10/31/2024 4:33 PM [facility] Glucose 76 70 - 100 mg/dL LAB CHEMISTRY METHOD 10/31/2024 4:33 PM [facility] BUN 10 5 - 25 mg/dL LAB CHEMISTRY METHOD 10/31/2024 4:33 PM [facility] Creatinine 0.65 0.50 - 1.10 mg/dL LAB CHEMISTRY METHOD 10/31/2024 4:33 PM EDT [facility] eGFR 127 >=60 mL/min/1. 73m2 LAB CHEMISTRY METHOD 10/31/2024 4:33 PM EDT [facility] Comment:Calculation based on the Chronic Kidney Disease Epidemiology Collaboration (CKD-EPI) equation refit without adjustment for race. BUN/Creatinine Ratio 15.4 LAB CHEMISTRY METHOD 10/31/2024 4:33 PM EDT [facility] Calcium 9.7 8.5 - 10.5 mg/dL LAB CHEMISTRY METHOD 10/31/2024 4:33 PM EDT [facility] Blood Venous blood specimen / Unknown Venipuncture / Unknown 10/31/2024 1:39 PM EDT 10/31/2024 1:39 PM EDT us Latesha France MD LAB BLOOD ORDERABLES Final Result [facility] [address] [place] [address], [place] [phone] * Lipid panel with reflex to direct LDL (07/19/2024 1:38 PM EDT) Cholesterol 142 0 - 200 mg/dL LAB CHEMISTRY METHOD 07/19/2024 5:47 PM EDT [facility] Triglycerides 54 0 - 150 mg/dL LAB CHEMISTRY METHOD 07/19/2024 5:47 PM EDT [facility] HDL 63 >=40 mg/dL LAB CHEMISTRY METHOD 07/19/2024 5:47 PM EDT [facility] LDL Calculated 68 0 - 100 mg/dL LAB CHEMISTRY METHOD 07/19/2024 5:47 PM EDT [facility] VLDL Cholesterol Nahid 10.8 mg/dL LAB CHEMISTRY METHOD 07/19/2024 5:47 PM EDT [facility] Non HDL Chol. (LDL+VLDL) 79 <145 mg/dL LAB CHEMISTRY METHOD 07/19/2024 5:47 PM EDT [facility] Chol/HDL Ratio 2.3 0.0 - 4.4 LAB CHEMISTRY METHOD 07/19/2024 5:47 PM EDT [facility] Blood Venous blood specimen / Unknown Venipuncture / Unknown 07/19/2024 1:38 PM EDT 07/19/2024 1:38 PM EDT Latesha France MD LAB BLOOD ORDERABLES Final Result [facility] [address] [place] [address], * Cervical Cancer Screening: HPV (08/30/2023) [facility] Cervical Cancer Screening: HPV abstracted; no interpretation Historical Provider HEALTH MAINTENANCE Final Result * Depression Screening (07/29/2023) [facility] Depression Screening abstracted Historical Provider HEALTH MAINTENANCE Final Result from Last 3 Months or Most Recently Relevant to Health Maintenance Insurance [facility] Care Teams Gluing Crew Leader Relationship Specialty Start Date End Date Latesha France MD [address] [place] [address] PCP - General Internal Medicine 02/13/24
--- OUTSIDE RECORDS SUMMARY | 2025-01-27 19:27 | XMS_ITS | Encounter Summary ---
Author Organization [facility] Address [address] [place] [address] Care Team Providers Care Scheduling Specialist Name Role Phone Latesha France MD Primary Care Provider [phone] Encounter Details Date Type Department Care Team (Late st Contact Info) Description 07/24/2024 Nurse Triage Adult Medicine [facility] [address] [place] [address] Latesha France MD [address] [place] [address] Social History Tobacco Use Types Packs/Day Years [...] Info) Description 01/29/2025 3:30 PM EST Treatment [address] [address] Breana Quintanilla, PT 02/04/2025 1:00 PM EST Clinical Support Obstetrics and Gynecology - [address] [address] 02/05/2025 3:00 PM EST Treatment [address] [address] Holden Toribio, UNDERWATER WELDER 02/12/2025 3:00 PM EST Treatment [address] [address] Holden Toribio, UNDERWATER WELDER 02/19/2025 4:00 PM EST Treatment [address] [address] Breana Quintanilla, PT 02/26/2025 4:30 PM EST Treatment [address] [address] Breana Quintanilla, PT 03/22/2025 3:00 PM EST Office Visit Adult Medicine [address] [address] Latesha France MD [address] [place] [address] 04/22/2025 11:10 AM EST Consult [facility] - [address] 300 [facility] [address] [place] [phone] Romeo Renee MD [address] [place] [address] Dr Romero [address] [place] [address] 06/13/2025 2:30 PM EDT Office Visit Pulmonology - [place] [address] [facility] [address] [place] [address] Jennifer Kaufman MD [address] [place] [phone] 06/26/2025 1:40 PM EDT Office Visit Gastroenterology - [address] [facility] [address] [place] [phone] Yanet Guy NP [address] [place] [phone] documented as of this encounter Visit Diagnoses Not on filedocumented in this encounter Care Teams Scheduling Specialist Relationship Specialty Start Date End Date Latesha France MD [address] [place] [address] PCP - General Internal Medicine 02/13/24 documented as of this encounter
--- OUTSIDE RECORDS SUMMARY | 2025-01-27 19:27 | XMS_ITS | Encounter Summary ---
Author Organization [facility] Address [address] [place] [address] Care Team Providers Care Byproducts Pump Operator Name Role Phone Latesha France MD Primary Care Provider [phone] Encounter Details Date Type Department Care Team (Late Contact Info) Description 01/15/2025 Results Follow-Up Adult Medicine [address] [phone] Latesha France MD [address] [place] [address] Social History Tobacco Use Types Packs/Day Years [...] Info) Description 01/29/2025 3:30 PM EST Treatment [facility] [address] [phone] Breana Quintanilla, PT 02/04/2025 1:00 PM EST Clinical Support Obstetrics and Gynecology [address] [phone] 02/05/2025 3:00 PM EST Treatment [facility] 175 [facility] [address] [place] [address] Holden Toribio, OUTSIDE CUTTER HAND 02/12/2025 3:00 PM EST Treatment [facility] [address] [address] Holden Toribio, OUTSIDE CUTTER HAND 02/19/2025 4:00 PM EST Treatment [facility] [address] [address] Braena Quintanilla, PT 02/26/2025 4:30 PM EST Treatment [facility] [address] [address] Breana Quintanilla, PT 03/22/2025 3:00 PM EST Office Visit Adult Medicine [facility] [address] [place] [address] Latesha France MD [address] [place] [address] 04/22/2025 11:10 AM EST Consult [facility] - [facility] 154 300 [facility] 154 [place] [phone] Romeo Renee MD [address] [place] [address] [address] [place] [phone] 06/13/2025 2:30 PM EDT Office Visit Pulmonology - [place] 175 [facility] [address] [place] [address] Jennifer Kaufman MD 230 [place] [phone] 06/26/2025 1:40 PM EDT Office Visit Gastroenterology - 299 [facility] 299 [facility] [address] [place] [address] Yanet Guy NP [address] [place] [address] documented as of this encounter Goals Goal [...] on filedocumented in this encounter Care Teams Byproducts Pump Operator Relationship Specialty Start Date End Date Latesha France MD [address] [place] [address] PCP - General Internal Medicine 02/13/24 documented as of this encounter
--- OUTSIDE RECORDS SUMMARY | 2025-01-27 19:27 | XMS_ITS | Encounter Summary ---
Author Organization [facility] Address [address] [place] [address] Care Team Providers Care Senior Product Development Manager Name Role Phone Latesha France MD Primary Care Provider [phone] Reason for Visit * Reason Onset Date Comments Cough 04/02/2024 Encounter Details Date Type Department Care Team (Late st Contact Info) Description 04/02/2024 Nurse Triage Adult Medicine [facility] [address] [place] [address] Latesha France MD [address] [place] [address] Social History Tobacco Use Types Packs/Day Years [...] recently to another state outside of [place], [place], [place], [place], [place], [place], [place]? no o If yes, did you quarantine [...] gather 3rd constitution party insurance information Third Constitution Party Information: n/a PCP: Latesha France MD Payor: [employer] / Plan: [facility] MEDICAID / Product Type: *No Product type* / documented in this encounter Plan of Treatment Upcoming Encounters Date Type Department Care Team (Late st Contact Info) Description 01/29/2025 3:30 PM EST Treatment [facility] [address] [address] Breana Quintanilla, PT 02/04/2025 1:00 PM EST Clinical Support Obstetrics and Gynecology [address] [address] 02/05/2025 3:00 PM EST Treatment [address] [address] Holden Toribio, MATHEMATICS PROFESSOR 02/12/2025 3:00 PM EST Treatment [address] [address] Holden Toribio, MATHEMATICS PROFESSOR 02/19/2025 4:00 PM EST Treatment [address] [address] Breana Quintanilla, PT 02/26/2025 4:30 PM EST Treatment [address] [phone] Breana Quintanilla, PT 03/22/2025 3:00 PM EST Office Visit Adult Medicine [place] - [address] [address] Latesha France MD [address] [place] [address] 04/22/2025 11:10 AM EST Consult [facility] - [facility] 154 300 [facility] 154 [place] [phone] Romeo Renee MD [address] [place] [address] Dr Romero [address] [place] [phone] 06/13/2025 2:30 PM EDT Office Visit Pulmonology - [place] 175 [facility] 200 [place] [phone] Jennifer Kaufman MD 230 [place] [phone] 06/26/2025 1:40 PM EDT Office Visit Gastroenterology - [address] [place] [phone] Yanet Guy NP [address] [place] [phone] documented as of this encounter Visit Diagnoses Not on filedocumented in this encounter Additional Health Concerns Infection Onset Date Last Indicated Resolved Time Respiratory Rule-Out 05/22/2024 05/22/2024 025 7:00 PM EST C. difficile Rule-Out 05/23/2024 05/22/20242024 4:54 PM EST documented as of this encounter Care Teams Senior Product Development Manager Relationship Specialty Start Date End Date Latesha France MD [address] [place] [address] PCP - General Internal Medicine 02/13/24 documented as of this encounter
[2025-01-27 21:15] LABS: MANUAL DIFF FLAG NO
[2025-01-27 21:20] LABS: Hematocrit 39.7 % (37.0-47.0); Hemoglobin 13.4 g/dl (12.0-16.0); Imm Gran Abs Auto 0.01 X10*3/uL (0.00-0.03); Imm Gran Pct Auto 0.1 % (0.0-0.4); Lymphocytes Absolute Auto 2.3 X10*3/uL (1.2-4.9); Mean Corpuscular HGB Conc 33.8 g/dl (31.0-35.0); Mean Corpuscular Hemoglobin 29.3 pg (27.0-33.0); Mean Corpuscular Volume 86.7 fL (80.0-98.0); NRBC Abs Auto 0.000 X10*3/uL (0.0-0.012); NRBC Pct Auto 0.0 /100WBC (0.0-0.2); Platelet Count 326 X10*3/uL (160-400); Red Blood Count 4.58 X10*6/uL (4.20-5.50); White Blood Count 8.8 X10*3/uL (4.8-10.8)
[2025-01-27 21:29] LABS: Alanine Aminotransferase 12 U/L (0-31); Albumin Level 4.5 g/dL (3.5-5.0); Alkaline Phosphatase 56 U/L (39-117); Anion Gap 11 (12-20); Aspartate Amino Transferase 16 U/L (5-31); Blood Urea Nitrogen 9 mg/dL (9-16); Calcium 9.0 mg/dL (8.4-10.2); Carbon Dioxide 23 mmol/L (22-29); Chloride 107 mmol/L (96-108); Creatinine Clr Calc Pharmacy 97.6; Estimated Glomerular Filt Rate > 60; Magnesium 1.9 mg/dL (1.6-2.6); Potassium 3.9 mmol/L (3.3-5.1); Sodium 137 mmol/L (135-145); Total Protein 7.1 g/dL (6.5-8.0)
[2025-01-27 22:47] VITALS: BP 112/65; PULSE 88; RESP 18; TEMP 36.7; O2SAT 99
== END 2025-01-27 22:49 | disposition home or self-care (01) ==
PROVIDERS: Physician Assistant; Emergency Provider Emergency Medicine; PCP Internal Medicine
DX: R55 Syncope and collapse (principal); M54.50 Low back pain, unspecified; M51.16 Intervertebral disc disorders with radiculopathy, lumbar region; Z79.899 Other long term (current) drug therapy
CPT/HCPCS: 36415; 80048; 80076; 81001; 81025; 83735; 85025; 93005; 99283; 99284; J8540

== ENCOUNTER → 2025-01-27 18:00 | Outpatient (BNV) | payer OTHER, SELFPAY | PROVIDERS: Emergency Provider Emergency Medicine; PCP Internal Medicine; Visit Provider Internal Medicine Cardiovascular Disease | DX: R55 Syncope and collapse (principal) | CPT/HCPCS: 93010 ==

== ENCOUNTER 2025-01-31 09:35 | Outpatient (REF) | payer OTHER, SELFPAY ==
--- OUTSIDE RECORDS SUMMARY | 2025-01-25 13:30 | XMS_ITS | Encounter Summary ---
Author Organization [facility] Address [address] [place] [address] Care Team Providers Care Barrer And Tacker Name Role Phone Latesha France MD Primary Care Provider [phone] Encounter Details Date Type Department Care Team (Latest Contact Info) Description 01/25/2025 2:30 PM EDT - 01/25/2025 11:59 PM EDT Hospital Encounter [facility] [address] [place] [address] Bilateral hand numbness Discharge Disposition: Home or Self Care Social [...] shortness of breath. 8 g 1 10/31/2024 baclofen (LIORESAL) 10 mg tablet Take 1 tablet (10 mg total) by mouth 3 (three) times a day. benzoyl peroxide (Acne Medication) 2.5 % gel Apply 1 g topically 2 times daily as needed (acne). 30 g 4 01/25/2025 cholecalciferol (VITAMIN D-3) 50 mcg (2,000 unit) capsule Take 1 capsule (2,000 Units total) by mouth 1 (one) time each day. 30 each 11 11/01/2024 6 cyclobenzaprine (FLEXERIL) 5 mg tablet Take 1 tablet (5 mg total) by mouth at bedtime as needed for muscle spasms. 30 tablet 01/25/2025 5 diclofenac (VOLTAREN) 50 mg EC tablet Take 1 tablet (50 mg total) by mouth 2 (two) times a day if needed (pain). Do not crush, chew, or split. 28 tablet 1 12/07/2024 5 fluticasone propionate (FLONASE) 50 mcg/actuation nasal spray Administer 1 spray into each nostril 1 (one) time each day. Shake gently. Before first use, prime pump. After use, clean tip and replace cap. 16 mL 3 01/25/2025 gabapentin (NEURONTIN) 300 mg capsule Take 1 [...] 3 (three) months. 1 mL 3 08/17/2024 methylPREDNISolone (MEDROL DOSPAK) 4 mg tablet Take as directed on package. 21 tablet 01/25/2025 5 ondansetron ODT (ZOFRAN-ODT) 4 mg disintegrating tablet [...] needed for congestion. 15 mL 5 01/22/2025 triamcinolone (KENALOG) 0.1 % ointment Apply topically 2 (two) times a day. For 2 weeks 30 g 2 05/11/2024 ZOLMitriptan (ZOMIG) 2.5 mg tablet Take 1 tablet (2.5 mg total) by mouth 1 (one) time if needed for migraine. May repeat once after 2 hours. 18 tablet 3 10/17/2024 documented as of this encounter Discharge Disposition Disposition Code Departure Means Destination Home or Self Care documented in this encounter Plan of Treatment Upcoming Encounters Date Type Department Care Team (Late st Contact Info) Description 02/04/2025 1:00 PM EST Clinical Support Obstetrics and Gynecology [address] [phone] 02/07/2025 2:00 PM EST Consult Neurosurgery [address] [phone] Ana Luisa Olmos PA [address] [address] 02/12/2025 1:00 PM EST Office Visit Adult Medicine [address] [phone] Latesha France MD [address] [place] [address] 03/22/2025 3:00 PM EST Office Visit Adult Medicine [address] [phone] Latesha France MD [address] [place] [address] 04/22/2025 11:10 AM EST Consult [facility] - [facility] 154 300 [facility] 154 [place] [address] Romeo Renee MD [address] [place] [address] [place] [address] 06/13/2025 2:30 PM EDT Office Visit Pulmonology - [place] [address] [place] [address] Jennifer Kaufman MD 230 [place] [phone] 06/26/2025 1:40 PM EDT Office Visit Gastroenterology - [address] 299 [facility] [address] [place] [address] Yanet Guy NP 299 [facility] 419 [place] [address] documented as of this encounter Goals Goal [...] Name Priority Date/Time Associated Diagnosis Comments XR HAND 3+ VIEWS BILAT Routine 01/25/2025 2:42 PM EDT Bilateral hand numbness documented in this encounter Results * XR Hand 3+ [...] Signed Date: 01/26/2025 09:46 ET Workstation ID: [id number] Transcribed By: Self Edit Transcribed Date: 01/26/2025 [...] Signed Date: 01/26/2025 09:46 ET Workstation ID: [id number] Transcribed By: Self Edit Transcribed Date: 01/26/2025 09:43 ET Latesha France MD IMG XR PROCEDURES Final Res ult documented in this encounter Visit Diagnoses Diagnosis Bilateral hand numbness Disturbance of skin sensation documented in this encounter Care Teams Barrer And Tacker Relationship Specialty Start Date End Date Latesha France MD [address] [place] [address] [place] [address] PCP - General Internal Medicine 02/13/24 documented as of this encounter
--- OUTSIDE RECORDS SUMMARY | 2025-01-30 15:00 | XMS_ITS | Encounter Summary ---
Author Organization [facility] Address [address] [place] [address] Care Team Providers Care Oil Dispenser Name Role Phone Latesha France MD Primary Care Provider [phone] Reason for Visit * Reason Comments Consult B/L hand numbness * Consultation (Routine) - Authorized Specialty Diagnoses / Procedures Referred By Contac t Referred To Contact Orthopedic Surgery / Orthopaedic Surgery Diagnoses Bilateral hand numbness Latesha France MD [address] [place] [address] Phone: tel: fax: Dilcia Marcus PA [address] [address] Phone: tel: fax: Referral ID Status Reason Start Date Expiration Date Visits Requested Visits Authorized [id number] Authorized Specialty Services Required 01/25/2026 1 1 Encounter Details Date Type Department Care Team (Late st Contact Info) Description 01/30/2025 3:00 PM EST Consult Orthopedic Surgery - [place] [address] [address] Dilcia Marcus PA [address] [address] Pain in both hands (Primary Dx) Social History Tobacco Use Types [...] as of this encounter Progress Notes * KAREN Harley - 01/30/2025 3:00 PM EST Referring MD:Latesha France MD Ms. Forrester is a 24 y.o. year old female who presents for consultation regarding Chief Complaint Patient presents with Consult B/L hand numbness . HPI: 24-year-old [id number] female here for concerns over her bilateral hands. Patient reports the concern is her hands feeling cold. Previously there is mention of numbness tingling in her handsbut when asked directly patient states she is not getting any numbness tingling. She states every time she goes outside her hands feel cold. No pain. No nighttime symptoms. No injuries to her hands. She does not smoke cigarettes. PAST MEDICAL HISTORY: Medical History[1] PAST SURGICAL HISTORY: Surgical History[2] ACTIVE PROBLEMS LIST: Problem List[3] ACTIVE MEDICATIONS: Medications Taking[4] ALLERGIES: Current Allergies[5] PHYSICAL EXAM: Visit Vitals OB Status Injection Smoking Status Never APPEARANCE: Alert and in no acute distress EYES: conjunctivae and sclerae normal NECK:Neck supple EXTREMITIES: Bilateral hands no hypothenar, thenar or interosseous wasting. No cyanosis no edema. No arthritic changes. Full wrist flexion and extension. She can abduct and adduct the fingers fully. 5 out of 5 pinch strength thumb and index fingers. Negative Tinel's, Phalen's and Durkan's test bilaterally. Arthur's test equal ulnar and radial artery circulation. LABS: Patient did have some laboratory work done that showed low vitamin D. B12 was normal. CBC within normal limits IMAGING: Independent review of bilateral hands from January 25 showed no bony abnormalities. ASSESSMENT AND PLAN: 1. Pain in both hands The details of the visit were reviewed with the patient. Pertinent history, and objective findings were reviewed, along with the diagnoses: Bilateral hand pain primarily more feeling of coldness in her hands but not any severe pain or paresthesias. Negative signs and symptoms of carpal tunnel today. Exam normal. I stated this could be Raynaud's phenomenon and would defer to primary care doctor. No further diagnostic testing or treatment needed for hands from my standpoint. No follow-up at this time. If there is any further concerns as far as hand pain or numbness tingling she can call the office for a follow-up appointment. KAREN Harley acknowledges understanding of the above plan and agrees to follow recommendations and/or take medications as prescribed. cc: Latesha France MD [1] Past Medical History: Diagnosis Date Vasovagal syncope DX:Vasovagal syncope [2] No past surgical history on file. [3] Patient Active Problem List Diagnosis Vasovagal syncope Syncope Psychogenic nonepileptic seizure Moderate intellectual disabilities Migraine without status migrainosus, not intractable Hypotension Menorrhagia with regular cycle PTSD (post-traumatic stress disorder) Sinus tachycardia White matter abnormality on MRI of brain Weakness of both lower extremities Low bicarbonate Atherosclerosis of artery of both lower extremities (CMS/HCC V24) Engages in vaping Cannabis use disorder Nasal congestion Hypoglycemia Pain in both lower extremities Abdominal discomfort Tinnitus of right ear Chest pain Developmental delay, mild Insomnia Abnormal leg movement Pre-syncope Snoring Osteoarthritis of lumbar spine Constipation Paresthesia of both legs Low back pain Rib pain Allergies Acne Nausea SOB (shortness of breath) Osteoarthritis of thoracic spine Bilateral hand numbness [4] No outpatient medications have been marked as taking for the 01/30/25 encounter (Consult) with KAREN Harley. [5] No Known Allergies documented in this encounter Plan of Treatment Upcoming Encounters Date Type Department Care Team (Late st Contact Info) Description 02/04/2025 1:00 PM EST Clinical Support Obstetrics and Gynecology - [address] [address] 02/07/2025 2:00 PM EST Consult Neurosurgery [place] [address] [place] [phone] Ana Luisa Olmos PA 175 [facility], [address] [place] [address] 02/12/2025 1:00 PM EST Office Visit Adult [facility] [address] [place] [address] Latesha France MD [address] [place], [place] 03/22/2025 3:00 PM EST Office Visit Adult [address] [phone] Latesha France MD [address] [place], [place] 04/22/2025 11:10 AM EST Consult [facility] - [facility] 154 300 [facility] 154 [place] [phone] Romeo Renee MD [address] [place] [address] Dr Romero [address] [place] [address] 06/13/2025 2:30 PM EDT Office Visit Pulmonology - [place] 175 [facility] 200 [place] [address] Jennifer Kaufman MD [address] [place] [phone] 06/26/2025 1:40 PM EDT Office Visit Gastroenterology - [address] 299 [facility] 419 [place] [address] Yanet Guy NP 299 [facility] 419 [place] [address] documented as of this encounter Goals Goal [...] as of this encounter Visit Diagnoses Diagnosis Pain in both hands- Primary documented in this encounter Orders Outpatient Referral Count Last Ordered Date Fir st Ordered Date AMB REFERRAL TO HAND SURGERY 1 01/30/2025 documented in this encounter Care Teams Oil Dispenser Relationship Specialty Start Date End Date Latesha France MD [address] [place] [address] PCP - General Internal Medicine 02/13/24 documented as of this encounter
--- OUTSIDE RECORDS SUMMARY | 2025-01-31 10:46 | XMS_ITS | Encounter Summary ---
Author Organization [facility] Address [address] [place] [address] Care Team Providers Care Commercial Photographer Name Role Phone Latesha France MD Primary Care Provider [phone] Reason for Visit * Reason Onset Date Comments Neck Pain 01/30/2025 Encounter Details Date Type Department Care Team (Late st Contact Info) Description 01/30/2025 Telephone Adult Medicine [facility] 444 [place] [address] Latesha France MD 444 [place] [address] Social History Tobacco Use Types Packs/Day Years [...] Progress Notes * Trudi Landaverde RN - 01/30/2025 1:08 PM EST Call back to pt Spoke to pt, pain that I had , while talking on the phone, yesterday , Both side of her neck, pain and stiffness, Started before the phone call, No neck injury, or shoulder no injury, history of back issues, Recent MRI, When she went to PT, at the second visit she passed out. She attended [facility], PT put on hold, Yesterday she went to PT, they talked about her treatment plan but no therapy. Using a heating Pad, taking a muscle relaxant, and steroid, ordered by Dr France, Not taking any tylenol at this time d/t other meds given Pt to rest , continue treatment plan, mild stretching, Call PT to set up next appt. Pt agreed * Mindy Horton - 01/30/2025 12:51 PM EST Patient returning your call * Trudi Landaverde RN - 01/30/2025 11:13 AM EST Call to pt.smf # left for pt to return call Voice mail not set up * Lorie Ruelas - 01/30/2025 10:23 AM EST Patient call requires triage: Symptoms patient is presenting: patient has neck pain, stiff neck and states she notice some slightswelling on the right side of neck. This started yesterday afternoon. Had a little headache yesterday. Has pain when she is laying down. Please call to discuss. No known injury. How long has patient had these symptoms?: yesterday For ALL patients calling to schedule any [...] recently to another state outside of [place], [place], [place], [place], [place], [place], [place]? no o If yes, did you [...] yes, gather 3rd democrat insurance information Third Democrat Information: not applicable PCP: Latesha France MD Payor: [employer] PL[employer] / Plan: [employer] MEDICA[employer] / Product Type: *No Product type* / documented in this encounter Plan of Treatment Upcoming Encounters Date Type Department Care Team (Late st Contact Info) Description 02/04/2025 1:00 PM EST Clinical Support Obstetrics and Gynecology [address] [address] 02/07/2025 2:00 PM EST Consult Neurosurgery [place] [address] 300 [place] [address] Ana Luisa Olmos PA [address] [place] [address] 300 [place] [address] 02/12/2025 1:00 PM EST Office Visit Adult Medicine [address] [phone] Latesha France MD [address] [place] [address] 03/22/2025 3:00 PM EST Office Visit Adult [address] [phone] Latesha France MD [address] [place] [address] 04/22/2025 11:10 AM EST Consult [facility] - [facility] 154 300 [facility] 154 [place] [phone] Romeo Renee MD [address] [place] [address] Dr Romero [address] [place] [phone] 06/13/2025 2:30 PM EDT Office Visit Pulmonology - [place] [address] [place] [address] Jennifer Kaufman MD [address] [place] [phone] 06/26/2025 1:40 PM EDT Office Visit Gastroenterology - [address] [facility] 419 [place] [phone] Yanet Guy NP [address] [facility] 419 [place] [address] documented as of this encounter Goals Goal [...] on filedocumented in this encounter Care Teams Commercial Photographer Relationship Specialty Start Date End Date Latesha France MD [address] [place] [address] PCP - General Internal Medicine 02/13/24 documented as of this encounter
--- OUTSIDE RECORDS SUMMARY | 2025-01-31 10:46 | XMS_ITS | Encounter Summary ---
Author Organization [facility] Address [address] [place] [address] Care Team Providers Care Oil Fire Specialist Name Role Phone Latesha Barcenas MD Primary Care Provider [phone] Reason for Visit * Reason Onset Date Comments Hospital Follow-up 01/28/2025 Encounter Details Date Type Department Care Team (Late st Contact Info) Description 01/28/2025 Telephone Adult Medicine [address] [phone] Tayler Mandujano MA Social History Tobacco Use Types Packs/Day [...] as of this encounter Progress Notes * Agustina Nagy RN - 01/28/2025 11:45 AM EST Pt to see dr barcenas 02/12 for [facility] f/u * Tayler Mandujano MA - 01/28/2025 11:32 AM EST Hospital/ER follow up appointment needed Hospital patient was treated at: [facility] Was this only an ER visit or was the patient admitted to the hospital? ER Visit only Date of visit if ER visit only: 12/27/24 If patient was admitted what was the date of discharge? Reason/diagnosis for visit or stay: PASSED OUT BACK TO BACK AND SEVERE BACK PAIN AND DIZZINESS When was the patient told to follow up? VITO.PROVIDER HAS NOTHING VITO.PLEASE ADVISE Was visit or stay related to an injury? If yes, what was the date of injury (DOI)? No If yes, was the injury due to: Not 3rd democrat related documented in this encounter Plan of Treatment Upcoming Encounters Date Type Department Care Team (Late st Contact Info) Description 02/04/2025 1:00 PM EST Clinical Support Obstetrics and Gynecology [address] [phone] 02/07/2025 2:00 PM EST Consult Neurosurgery [address] 300 [place] [address] Ana Luisa Olmos PA 175 [facility] [address] [place] [address] 02/12/2025 1:00 PM EST Office Visit Adult [address] [phone] Latesha Barcenas MD [address] [place] [address] 03/22/2025 3:00 PM EST Office Visit Adult [address] [phone] Latesha Barcenas MD [address] [place] [address] 04/22/2025 11:10 AM EST Consult [facility] - [facility] 154 300 [facility] 154 [place] [address] Romeo Renee MD [address] [place] [address] Dr Romero [address] [place] [address] 06/13/2025 2:30 PM EDT Office Visit Pulmonology - [place] [address] [place] [address] Jennifer Kaufman MD 230 [place] [phone] 06/26/2025 1:40 PM EDT Office Visit Gastroenterology - [address] 299 [facility] [address] [place] [phone] Yanet Guy NP 299 [facility] 419 [place], [place] [phone] documented as of this encounter Goals Goal [...] on filedocumented in this encounter Care Teams Oil Fire Specialist Relationship Specialty Start Date End Date Latesha Barcenas MD [address] [place] [address] PCP - General Internal Medicine 02/13/24 documented as of this encounter
--- OUTSIDE RECORDS SUMMARY | 2025-01-31 10:46 | XMS_ITS | Encounter Summary ---
Author Organization [employer] Address [address] [place] [address] Care Team Providers Care Antenna Installer Name Role Phone Latesha France MD Primary Care Provider [phone] Encounter Details Date Type Department Care Team (Late st Contact Info) Description 07/24/2024 Nurse Triage Adult Medicine [facility] [address] [place] [address] Latesha France MD 444 [place] [address] Social History Tobacco Use Types Packs/Day Years [...] PM EST Clinical Support Obstetrics and Gynecology [address] [phone] 02/07/2025 2:00 PM EST Consult Neurosurgery [address] [phone] Ana Luisa Olmos PA [address] [place] [address] 02/12/2025 1:00 PM EST Office Visit Adult [address] [phone] Latesha France MD [address] [place] [address] 03/22/2025 3:00 PM EST Office Visit Adult [address] [phone] Latesha France MD [address] [place] [address] 04/22/2025 11:10 AM EST Consult [facility] - [facility] 154 300 [facility] 154 [place] [phone] Romeo Renee MD [address] [place] [address] [place] [address] 06/13/2025 2:30 PM EDT Office Visit Pulmonology - [place] [address] [place] [address] Jennifer Kaufman MD [address] [place] [phone] 06/26/2025 1:40 PM EDT Office Visit Gastroenterology - 299 [facility] [address] [place] [address] Yanet Guy, LEANA [address] [place] [address] documented as of this encounter Visit Diagnoses Not on filedocumented in this encounter Care Teams Antenna Installer Relationship Specialty Start Date End Date Latesha France MD [address] [place] [address] PCP - General Internal Medicine 02/13/24 documented as of this encounter
--- OUTSIDE RECORDS SUMMARY | 2025-01-31 10:46 | XMS_ITS | Encounter Summary ---
Author Organization [employer] Address [address] [place] [address] Care Team Providers Care Contact Worker Name Role Phone Latesha France MD Primary Care Provider +- [phone] Reason for Visit * Reason Onset Date Comments Hypotension 03/19/2024 Encounter Details Date Type Department Care Team (Late st Contact Info) Description 03/19/2024 Nurse Triage Adult Medicine [facility] [address] [place] [address] Latesha France MD 444 [place] [address] Social History Tobacco Use Types Packs/Day Years [...] traveled recently to another state outside of [place], [place], [place], [place], [place], [place], [place]? no o If yes, did [...] gather 3rd green party insurance information Third Alliance Party Information: not applicable PCP: Latesha France MD Payor: American Board of Addiction Medicine (ABAM) PLAN / Plan: [employer] MEDICAID / Product Type: *No Product type* / documented in this encounter Plan of Treatment Upcoming Encounters Date Type Department Care Team (Late st Contact Info) Description 02/04/2025 1:00 PM EST Clinical Support Obstetrics and Gynecology [address] [phone] 02/07/2025 2:00 PM EST Consult Neurosurgery [place] [address] [place] [phone] Ana Luisa Olmos PA 175 [facility], [address] [place] [address] 02/12/2025 1:00 PM EST Office Visit Adult Medicine [address] [phone] Latesha France MD [address] [place] [address] 03/22/2025 3:00 PM EST Office Visit Adult [address] [phone] Latesha France MD [address] [place] [address] 04/22/2025 11:10 AM EST Consult [facility] - [address] [facility] [address] [place] [phone] Romeo Renee MD [address] [place] [address] [place] [phone] 06/13/2025 2:30 PM EDT Office Visit Pulmonology - [place] [address] [facility] [address] [facility] [address] [place] [address] Jennifer Kaufman MD [address] [place] [phone] 06/26/2025 1:40 PM EDT Office Visit Gastroenterology - [address] 299 [facility] [address] [place] [address] Yanet Guy, LEANA [address] [facility] [address] [place] [address] documented as of this encounter Visit Diagnoses Not on filedocumented in this encounter Additional Health Concerns Infection Onset Date Last Indicated Resolved Time Respiratory Rule-Out 05/22/2024 05/22/2024 025 7:00 PM EST C. difficile Rule-Out 05/23/2024 05/22/20242024 4:54 PM EST documented as of this encounter Care Teams Contact Worker Relationship Specialty Start Date End Date Latesha France MD [address] [place] [address] PCP - General Internal Medicine 02/13/24 documented as of this encounter
--- OUTSIDE RECORDS SUMMARY | 2025-01-31 10:46 | XMS_ITS | Encounter Summary ---
Author Organization [employer] Address [address] [place] [address] Care Team Providers Care Scrubbing Machine Operator Name Role Phone Latesha France MD Primary Care Provider [phone] Reason for Visit * Reason Onset Date Comments Cough 04/02/2024 Encounter Details Date Type Department Care Team (Late st Contact Info) Description 04/02/2024 Nurse Triage Adult Medicine [facility] 444 [place] [address] Latesha France MD 444 [place] [address] Social History Tobacco Use Types Packs/Day Years [...] recently to another state outside of [place], [place], [place], [place], [place], [place], [place]? no o If yes, did you quarantine [...] yes, gather 3rd republican insurance information Third Democrat Information: n/a PCP: Latesha France MD [facility] [employer] [facility]AN / Plan: [employer] MEDICAID / Product Type: *No Product type* / documented in this encounter Plan of Treatment Upcoming Encounters Date Type Department Care Team (Late st Contact Info) Description 02/04/2025 1:00 PM EST Clinical Support Obstetrics and Gynecology [facility] 444 [place], [place] [phone] 02/07/2025 2:00 PM EST Consult Neurosurgery [place] [facility] [place] 175 [facility] 300 [place] [phone] Ana Luisa Olmos PA 175 [facility] 300 [place] [address] 02/12/2025 1:00 PM EST Office Visit Adult Medicine [address] [phone] Latesha France MD 444 [place], [place] 03/22/2025 3:00 PM EST Office Visit Adult Medicine [address] [phone] Latesha France MD 4 [place], [place] 04/22/2025 11:10 AM EST Consult [facility] - [facility] 154 300 [facility] 154 [place] [phone] Romeo Renee MD [address] [place] [address] [place] [address] 06/13/2025 2:30 PM EDT Office Visit Pulmonology - [place] 175 [facility] 200 [place] [address] Jennifer Kaufman MD [address] [place] [phone] 06/26/2025 1:40 PM EDT Office Visit Gastroenterology - [address] [facility] [address] [place] [address] Yanet Guy NP [address] [facility] [address] [place] [address] documented as of this encounter Visit Diagnoses Not on filedocumented in this encounter Additional Health Concerns Infection Onset Date Last Indicated Resolved Time Respiratory Rule-Out 05/22/2024 05/22/2024 025 7:00 PM EST C. difficile Rule-Out 05/23/2024 05/22/20242024 4:54 PM EST documented as of this encounter Care Teams Scrubbing Machine Operator Relationship Specialty Start Date End Date Latesha Fracne MD [address] [place] [address] PCP - General Internal Medicine 02/13/24 documented as of this encounter
--- OUTSIDE RECORDS SUMMARY | 2025-01-31 10:46 | XMS_ITS | Encounter Summary ---
Author [facility] Address [address] [place] [address] Care Team Providers Care Fulling Machine Operator Name Role Phone Latesha France MD Primary Care Provider [phone]- [phone] Encounter Details Date Type Department Care Team (Late Contact Info) Description 01/29/2025 Results Follow-Up Adult Medicine [address] [phone] Latesha France MD 4 [place], [place] Social History Tobacco Use Types Packs/Day [...] Department Care Team (Late Contact Info) Description 02/04/2025 1:00 PM EST Clinical Support Obstetrics and Gynecology [address] [phone] 02/07/2025 2:00 PM EST Consult Neurosurgery [place] [address] [place] [address] Ana Luisa Olmos PA 175 [facility], [address] [place] [address] 02/12/2025 1:00 PM EST Office Visit [address] [phone] Latesha France MD 444 [place], [place] 03/22/2025 3:00 PM EST Office Visit [address] [phone] Latesha France MD 444 [place], [place] 04/22/2025 11:10 AM EST Consult [facility] - [facility] 154 300 [facility] 154 [place] [address] Romeo Renee MD [address] [place] [address] Dr Romero [address] [place] [phone] 06/13/2025 2:30 PM EDT Office Visit Pulmonology - [place] 175 [facility] [address] [place] [address] Jennifer Kaufman MD [address] [place] [phone] 06/26/2025 1:40 PM EDT Office Visit Gastroenterology - 299 [facility] 299 [facility] [address] [place] [address] Yanet Guy NP [address] [facility] 419 [place] [address] documented as of this encounter Goals Goal Patient Goal Type Associated Problems Recent Progress Patient-Stated? Author PT LTG - 6 visits General No Moskal, Bridgett, PT Note: Patient reports subjective decrease in back pain Patient is able to complete 6 min walk test Slight flexibility restriction to bilateral QL Patient is able to achieve 100% lumbar flexion and extension without deviations Patient is independent and compliant with HEP documented as of this encounter Visit Diagnoses Not on filedocumented in this encounter Care Teams Fulling Machine Operator Relationship Specialty Start Date End Date Latesha France MD [address] [place] [address] PCP - General Internal Medicine 02/13/24 documented as of this encounter
--- OUTSIDE RECORDS SUMMARY | 2025-01-31 10:46 | XMS_ITS | Encounter Summary ---
[facility] Address [address] [place] [address] Care Team Providers Care Photoengraving Helper Name Role Phone Latesha France MD Primary Care Provider [phone] Reason for Visit * Reason Onset Date Comments Med Refill 01/25/2024 Disregard put in to system in older epic for refill Encounter Details Date Type Department Care Team (Late Contact Info) Description 01/25/2024 Telephone Adult Medicine [address] [phone] Latesha France MD [address] [place] [address] Social History Tobacco Use Types Packs/Day Years [...] Clinical Support Obstetrics and Gynecology - [address] [phone] 02/07/2025 2:00 PM EST Consult Neurosurgery [facility] [address] [place] [phone] Ana Luisa Olmos PA 175 [facility], [address] [place] [address] 02/12/2025 1:00 PM EST Office Visit Adult [facility] [address] [place] [address] Latesha France MD 444 [place], [place] 03/22/2025 3:00 PM EST Office Visit Adult [address] [phone] Latesha France MD 444 [place], [place] 04/22/2025 11:10 AM EST Consult [facility] - [facility] [address] 300 [facility] 154 [place] [address] Romeo Renee MD [address] [place] [address] Dr [address] [place] [phone] 06/13/2025 2:30 PM EDT Office Visit Pulmonology - [place] 175 [facility] [address] [place] [address] Jennifer Kaufman MD 230 [place] [phone] 06/26/2025 1:40 PM EDT Office Visit Gastroenterology - 299 [facility] 299 [facility] [address] [place] [address] Yanet Guy NP 299 [facility] 419 [place] [address] documented as of this encounter Visit Diagnoses Not on filedocumented in this encounter Additional Health Concerns Infection Onset Date Last Indicated Resolved Time Respiratory Rule-Out 05/22/2024 05/22/2024 025 7:00 PM EST C. difficile Rule-Out 05/23/2024 05/22/20242024 4:54 PM EST documented as of this encounter Care Teams Photoengraving Helper Relationship Specialty Start Date End Date Latesha France MD [address] [place] [address] PCP - General Internal Medicine 02/13/24 documented as of this encounter
--- OUTSIDE RECORDS SUMMARY | 2025-01-31 10:46 | XMS_ITS | Encounter Summary ---
Author [facility] Address [address] [place] [address] Care Team Providers Care Sociology Professor Name Role Phone Latesha France MD Primary Care Provider [phone]- [phone] Encounter Details Date Type Department Care Team (Late Contact Info) Description 01/29/2025 Results Follow-Up Adult Medicine [address] [phone] Latesha France MD 4 [place], [place] Social History Tobacco Use Types Packs/Day [...] PM EST Clinical Support Obstetrics and Gynecology [address] [phone] 02/07/2025 2:00 PM EST Consult Neurosurgery [place] [address] [place] [address] Ana Luisa Olmos PA 175 [facility], [address] [place] [address] 02/12/2025 1:00 PM EST Office Visit [address] [phone] Latesha France MD 444 [place], [place] 03/22/2025 3:00 PM EST Office Visit [address] [phone] Latesha France MD 444 [place], [place] 04/22/2025 11:10 AM EST Consult [facility] - [facility] 154 300 [facility] 154 [place] [address] Romeo Renee MD [address] [place] [address] Dr Romero 410 [place] [phone] 06/13/2025 2:30 PM EDT Office Visit Pulmonology - [place] 175 [facility] [address] [place] [address] Jennifer Kaufman MD [address] [place] [phone] 06/26/2025 1:40 PM EDT Office Visit Gastroenterology - 299 [facility] 299 [facility] [address] [place] [address] Yanet Guy NP 299 [facility] 419 [place] [address] documented as of this encounter Goals Goal [...] on filedocumented in this encounter Care Teams Sociology Professor Relationship Specialty Start Date End Date Latesha France MD [address] [place] [address] PCP - General Internal Medicine 02/13/24 documented as of this encounter
--- OUTSIDE RECORDS SUMMARY | 2025-01-31 10:47 | XMS_ITS | Encounter Summary ---
Author Organization [employer] Address [address] [place] [address] Care Team Providers Care Die Stamping Press Operator Name Role Phone Latesha France MD Primary Care Provider [phone] Reason for Visit * Reason Onset Date Comments Abdominal Pain 04/25/2024 Diarrhea 04/25/2024 Encounter Details Date Type Department Care Team (Late st Contact Info) Description 04/25/2024 Nurse Triage Adult Medicine [address] [phone] Latesha France MD [address] [place] [address] Social History Tobacco Use Types Packs/Day Years [...] recently to another state outside of [place], [place], [place], [place], [place], [place], [place]? no o If yes, did you quarantine [...] not applicable PCP: Latesha France MD Payor: [employer] HEALTH PLAN / Plan: [employer] MEDICAID / Product Type: *No Product type* / documented in this encounter Plan of Treatment Upcoming Encounters Date Type Department Care Team (Late st Contact Info) Description 02/04/2025 1:00 PM EST Clinical Support Obstetrics and Gynecology [address] [phone] 02/07/2025 2:00 PM EST Consult Neurosurgery [place] [address] 300 [place] [address] Ana Luisa Olmos PA 175 [facility], [address] [place] [address] 02/12/2025 1:00 PM EST Office Visit Adult [facility] [address] [place] [address] Latesha France MD 444 [place], [place] 03/22/2025 3:00 PM EST Office Visit Adult [facility] [address] [place] [address] Latesha France MD 444 [place], [place] 04/22/2025 11:10 AM EST Consult [facility] - [facility] 154 300 [facility] 154 [place] [address] Romeo Renee MD [address] [place] [address] Dr Romero 410 [place] [phone] 06/13/2025 2:30 PM EDT Office Visit Pulmonology - [place] 175 [facility] [address] [place] [phone] Jennifer Kaufman MD [address] [place] [phone] 06/26/2025 1:40 PM EDT Office Visit Gastroenterology - 299 [facility] 299 [facility] [address] [place] [address] Yanet Guy NP 299 [facility] 419 [place] [address] documented as of this encounter Visit Diagnoses Not on filedocumented in this encounter Additional Health Concerns Infection Onset Date Last Indicated Resolved Time Respiratory Rule-Out 05/22/2024 05/22/2024 025 7:00 PM EST C. difficile Rule-Out 05/23/2024 05/22/20242024 4:54 PM EST documented as of this encounter Care Teams Die Stamping Press Operator Relationship Specialty Start Date End Date Latesha France MD [address] [place] [address] PCP - General Internal Medicine 02/13/24 documented as of this encounter
--- OUTSIDE RECORDS SUMMARY | 2025-01-31 10:47 | XMS_ITS | Encounter Summary ---
Author Organization [facility] Address [address] [place] [address] Care Team Providers Care Registrar Nurses' Registry Name Role Phone Latesha France MD Primary Care Provider [phone]- [phone] Encounter Details Date Type Department Care Team (Late Contact Info) Description 01/15/2025 Results Follow-Up Adult Medicine [address] [phone] Latesha France MD 4 [place], [place] Social History Tobacco Use Types Packs/Day [...] PM EST Clinical Support Obstetrics and Gynecology [address] [phone] 02/07/2025 2:00 PM EST Consult Neurosurgery [place] [address] [place] [address] Ana Luisa Olmos PA 175 [facility], [address] [place] [address] 02/12/2025 1:00 PM EST Office Visit [address] [phone] Latesha France MD 444 [place], [place] 03/22/2025 3:00 PM EST Office Visit [address] [phone] Latesha France MD 444 [place], [place] 04/22/2025 11:10 AM EST Consult [facility] - [facility] 154 300 [facility] 154 [place] [address] Romeo Renee MD [address] [place] [address] Dr Romero 410 [place] [phone] 06/13/2025 2:30 PM EDT Office Visit Pulmonology - [place] 175 [facility] [address] [place] [address] Jennifer Kaufman MD [address] [place] [phone] 06/26/2025 1:40 PM EDT Office Visit Gastroenterology - 299 [facility] 299 [facility] [address] [place] [address] Yanet Guy NP 299 [facility] 419 [place] [address] documented as of this encounter Goals Goal [...] on filedocumented in this encounter Care Teams Registrar Nurses' Registry Relationship Specialty Start Date End Date Latesha France MD [address] [place] [address] PCP - General Internal Medicine 02/13/24 documented as of this encounter
--- OUTSIDE RECORDS SUMMARY | 2025-01-31 10:47 | XMS_ITS | Clinical Summary ---
Author Organization [facility] [address] [facility] l[address] Address [address] [place] [address] Phone Care Team Providers Care Demand Planning Manager Name Role Phone Latesha France MD Primary Care Provider [phone] Allergies No known active allergies Medications triamcinolone (KENALOG) 0.1 % ointment Apply topically 2 (two) times a day. For 2 weeks 30 g 2 025 Active medroxyPROGESTERo ne (Depo-Provera) 150 mg/mL injection Inject 1 mL (150 mg total) into the shoulder, thigh, or buttocks every 3 (three) months. 1 mL 3 Active ZOLMitriptan (ZOMIG) 2.5 mg tablet Take [...] REPLACE CAP AFTER USE. 16 mL 3 02/142024 Discontinued(R eorder) sodium chloride (OCEAN) 0.65 % nasal spray Administer 1 spray into each nostril if needed for congestion. 15 mL 5 2024 Discontinued(R eorder) benzoyl peroxide (Acne Medication) 2.5 % gel Apply 1 g topically 2 times daily as needed (acne). 30 g 4 2024 Discontinued(R eorder) PHENobarbitaL 30 mg tablet [...] Encounters Date Type Department Care Team Description 01/30/2025 3:00 PM EST Consult Orthopedic Surgery - [place] [address] [place] [phone] Dilcia Marcus PA Pain in both hands (Primary Dx) 01/30/2025 Telephone Adult Medicine [address] [phone] Latesha France MD 01/29/2025 Results Follow-Up Adult Medicine [address] [phone] Latesha France MD 01/29/2025 Results Follow-Up Adult Medicine [address] [phone] Latesha France MD 01/28/2025 Telephone Adult Medicine [address] [phone] Tayler Mandujano MA 01/25/2025 2:45 PM EDT Lab Draw Station - [address] Vitamin B12 deficiency; Vitamin D deficiency 01/25/2025 2:30 PM EDT - 01/25/2025 11:59 PM EDT Hospital Encounter XRAY - [address] [phone] Bilateral hand numbness Discharge Disposition: Home or Self Care 01/25/2025 2:00 PM EDT Office Visit Adult Medicine [address] [phone] Latesha France MD Nausea (Primary Dx); Acne, [...] PM EDT Hospital Encounter Radiology Department - [address] [phone] Radiculopathy, lumbar region Discharge Disposition: Home or Self Care 01/22/2025 3:00 PM EDT Treatment [address] [phone] Holden Toribio PTA Lumbar spondylosis (Primary Dx) 01/21/2025 Telephone Adult Medicine [address] [phone] Latesha France MD 01/16/2025 Telephone Adult Medicine [address] [phone] Trudi Landaverde RN 01/15/2025 Results Follow-Up Adult Medicine [address] [phone] Latesha France MD 01/11/2025 Telephone Adult Medicine [address] [phone] Latesha France MD 01/11/2025 Telephone [facility] - [facility] [address] [facility] [address] [place] [phone] Maria Eugenia Mccartney MD 01/10/2025 Telephone Adult [address] [phone] Latesha France MD 01/07/2025 Telephone Adult Medicine [address] [phone] Tayler Mandujano MA 12/31/2024 3:00 PM EDT Evaluation [facility] Outpatient Rehabilitation - [place] [address] [facility] [address] [place] [phone] Bridgett Lockwood, PT Lumbar spondylosis (Primary Dx); Chronic bilateral low back pain, unspecified whether sciatica present 12/31/2024 Telephone Adult [address] [phone] Latesha France MD 12/19/2024 3:10 PM EDT Office Visit [facility] - [facility] [address] [place] [address] Yamilex Eagle NP Syncope, unspecified syncope type (Primary Dx); Chest pain, unspecified type 12/18/2024 Telephone Infectious Disease - [address] [place] [phone] Daphney Stover [place] 12/17/2024 3:00 PM EDT Lab Draw Station - [address] SOB (shortness of breath) 12/17/2024 2:30 PM EDT Office Visit Obstetrics and Gynecology - [address] [phone] Sally Kinney CNM Breakthrough bleeding on depo provera (Primary Dx) 12/17/2024 Telephone Adult [address] [phone] Latesha France MD 12/14/2024 3:30 PM EDT Procedure visit Pulmonology - [place] [address] [facility] 200 [place] [phone] SOB (shortness of breath) 12/14/2024 3:00 PM EDT Consult Pulmonology - [place] [address] [facility] 200 [place] [phone] Jennifer Kaufman MD SOB (shortness of breath) (Primary Dx); Snoring 12/13/2024 1:44 PM EDT - 12/13/2024 11:59 PM EDT Hospital Encounter XRAY - [address] [phone] Upper back pain Discharge Disposition: Home or Self Care 12/07/2024 Telephone Adult [address] [phone] Tayler Mandujano MA 11/30/2024 10:30 AM EDT Office Visit [address] [phone] Latesha France MD Paresthesia of both legs (Primary Dx); Constipation, unspecified constipation type; Loss of consciousness (CMS/HCC V24, CMS/HCC V28); Osteoarthritis of lumbar spine, unspecified spinal osteoarthritis complication status; Low back pain, unspecified back pain laterality, unspecified chronicity, unspecified whether sciatica present; Upper back pain; Rib pain; SOB (shortness of breath); Mitral valve insufficiency, unspecified etiology 11/30/2024 Telephone [facility] - [facility] [address] [facility] 154 [place] [phone] Yamilex Eagle NP 11/23/2024 3:14 PM EDT - 11/23/2024 11:59 PM EDT Hospital Encounter [address] [phone] Pain Discharge Disposition: Home or Self Care 11/22/2024 Telephone Obstetrics and Gynecology [address] [phone] Sally Kinney CNM 11/22/2024 Telephone Adult Medicine [address] [phone] Latesha France MD 11/20/2024 Telephone Adult [address] [phone] Latesha France MD 11/19/2024 Telephone Obstetrics and [address] [phone] Gemini Bazzi CNM 11/15/2024 Telephone Adult [address] [phone] Latesha France MD 11/14/[address] [phone] Sally Kinney CNM 11/12/2024 1:00 PM EDT Clinical Support Obstetrics [address] [phone] Encounter for management and injection of depo-Provera (Primary Dx) 11/09/2024 7:20 AM EDT - 11/09/2024 11:59 PM EDT Hospital Encounter [address] [phone] Discharge Disposition: Home or Self Care 11/07/2024 Telephone Obstetrics [address] [phone] Sally Kinney CNM 11/06/2024 8:30 AM EDT Office Visit Adult [address] [phone] Latesha France MD Enlarged tonsils (Primary Dx); Sore throat; Localized swelling on left hand 11/05/2024 Telephone Obstetrics and [address] [phone] Sally Kinney CNM 11/02/2024 Telephone Adult Medicine [address] [phone] Latesha France MD 11/01/2024 Telephone Adult Medicine [address] [phone] Latesha France MD 10/31/2024 1:39 PM EDT - 10/31/2024 11:59 PM EDT Hospital Encounter [address] [phone] SOB (shortness of breath) Discharge Disposition: Home or Self Care 10/31/2024 1:00 PM EDT Office Visit Adult Medicine [address] [phone] Latesha France MD Psychogenic nonepileptic seizure (Primary Dx); Vitamin D deficiency; SOB (shortness of breath) from Last 3 Months Immunizations Immunization Administration [...] Clinical Support Obstetrics and Gynecology - [address] [phone] 02/07/2025 2:00 PM EST Consult [facility] [address] [facility] [address] [place] [phone] Ana Luisa Olmos PA [address] [facility] [place] [address] 02/12/2025 1:00 PM EST Office Visit Adult [address] [phone] Latesha France MD [address] [place] [address] 03/22/2025 3:00 PM EST Office Visit Adult [address] [phone] Latesha France MD [address] [place], [place] 04/22/2025 11:10 AM EST Consult [facility] - [facility] [address] [facility] 154 [place] [phone] Romeo Renee MD [address] [place] [address] [address] [place] [phone] 06/13/2025 2:30 PM EDT Office Visit Pulmonology - [place] [address] [facility] 200 [place] [phone] Jennifer Kaufman MD [address] [place] [phone] 06/26/2025 1:40 PM EDT Office Visit Gastroenterology - [address] [place] [address] 299 [facility] [address] [place] [phone] Yanet Guy, LEANA [address] [facility] [address] [place] [address] Health Maintenance Due Date Last Done Comments [...] of3 resultswithin the time period is included. Vit D, 25-Hydroxy 27.0(L) 30.0 - 80.0 ng/mL LAB CHEMISTRY METHOD 01/25/2025 7:35 PM EDT [facility] Blood Venous blood specimen / Unknown Venipuncture / Unknown 01/25/2025 2:47 PM EDT 01/25/2025 2:47 PM EDT Latesha France MD LAB BLOOD ORDERABLES Final Result Performing Organization Address [facility]/ZIP Co de Phone Number [facility] [address] [place] [address], [place] [phone] * Vitamin B12 (01/25/2025 2:47 PM EDT) [facility] Vitamin B-12 420 250 - 900 pcg/mL LAB CHEMISTRY METHOD 01/25/2025 7:37 PM EDT [facility] Blood Venous blood specimen / Unknown Venipuncture / Unknown 01/25/2025 2:47 PM EDT 01/25/2025 2:47 PM EDT Latesha France MD LAB BLOOD ORDERABLES Final Result Performing Organization Address [facility] Co de Phone Number [facility] [address] [place] [address], [place] [phone] * XR Hand 3+ Views bilat (01/25/2025 [...] Signed Date: 01/26/2025 09:46 ET Workstation ID: [id number] Transcribed By: Self Edit Transcribed Date: 01/26/2025 [...] Signed Date: 01/26/2025 09:46 ET Workstation ID: [id number] Transcribed By: Self Edit Transcribed Date: 01/26/2025 09:43 ET us Mayraducatina France MD IMG XR PROCEDURES Final Res [...] Signed Date: 01/24/2025 17:19 ET Workstation ID: [id number] Transcribed By: Self Edit Transcribed Date: 01/24/2025 [...] changes with central disc protrusion at L4- B2ebukmvnaw in moderate bilateral neuroforaminal stenosis and moderatespinal canal stenosis -------- FINAL REPORT -------- Dictated By: Courtney Prakash Dictated Date: 01/24/2025 17:10 ET Assigned Physician: Courtney Prakash Reviewed and Electronically Signed By: Courtney Prakash Signed Date: 01/24/2025 17:19 ET Workstation ID: [id number] Transcribed By: Self Edit Transcribed Date: 01/24/2025 17:10 ET Sebastián JONES IMG MRI PROCEDURES Final Resul t * External Neurology Report (12/25/2024) Provider [facility] NEUROLOGY ORDERABLES Fin al Result * External Neurology Report (12/24/2024) Provider [facility] NEUROLOGY ORDERABLES Fin al Result * Trichomonas vaginalis antigen (12/17/2024 3:13 PM EDT) Trichomonas vaginalis Negative Negative 12/17/2024 7:16 PM EDT [facility] Swab Vaginal structure / Unknown Non-blood Collection / Unknown 12/17/2024 3:13 PM EDT 12/17/2024 3:13 PM EDT Sally Kinney [facility] MICROBIOLOGY - GENERAL RITA MUÑIZ Final Result [facility] [address] [place] [address], [place] [phone] * Chlamydia trachomatis and Neisseria gonorrhoeae molecular study (12/17/2024 3:13 PM EDT) [facility] Neisseria gonorrhoeae PCR Negative Negative LAB MOLECULAR DIAGNOSTICS METHOD 12/18/2024 9:04 AM EDT [facility] Chlamydia trachomatis PCR Negative Negative LAB MOLECULAR DIAGNOSTICS METHOD 12/18/2024 9:04 AM EDT [facility] Swab Cervix uteri structure / Unknown Non-blood Collection / Unknown 12/17/2024 3:13 PM EDT 12/17/2024 3:13 PM EDT Sally ALLEN LAB MICROBIOLOGY - GENERAL RITA MUÑIZ Final Result Performing Organization Address [facility]/ZIP Co de Phone Number [facility] [address] [place] [address], [place] [phone] * Culture urine (12/17/2024 3:13 PM EDT) [facility] Culture, Urine <10,000 CFU/mL gram negative bacilli, insignificant count, no further workup 12/18/2024 1:42 PM EDT [facility] Urine Urine specimen obtained by clean catch procedure / Unknown Non-blood Collection / Unknown 12/17/2024 3:13 PM EDT 12/17/2024 3:13 PM EDT us Sally ALLEN LAB MICROBIOLOGY - GENERAL ORDE RABANGELIC Final Result [facility] [address] [place] [address], [place] [phone] * (ABNORMAL) CBC auto differential (12/17/2024 3:12 PM EDT) [facility] WBC 7.8 4.8 - 10.8 K/mcL LAB HEMETOLOGY METHOD 12/17/2024 4:26 PM [facility] RBC 4.50 3.80 - 4.80 M/mcL LAB HEMETOLOGY METHOD 12/17/2024 4:26 PM [facility] Hemoglobin 13.5 11.5 - 16.0 g/dL LAB HEMETOLOGY METHOD 12/17/2024 4:26 PM [facility] Hematocrit 39.3 35.0 - 47.0 % LAB HEMETOLOGY METHOD 12/17/2024 4:26 PM [facility] MCV 87.9 79.0 - 98.0 FL LAB HEMETOLOGY METHOD 12/17/2024 4:26 PM [facility] MCH 30.2 27.0 - 32.0 pcg LAB HEMETOLOGY METHOD 12/17/2024 4:26 PM [facility] MCHC 34.4 32.0 - 37.0 g/dL LAB HEMETOLOGY METHOD 12/17/2024 4:26 PM [facility] RDW 11.8 11.0 - 15.0 % LAB HEMETOLOGY METHOD 12/17/2024 4:26 PM [facility] Platelets 277 130 - 400 K/mcL LAB HEMETOLOGY METHOD 12/17/2024 4:26 PM [facility] MPV 10.6 7.0 - 11.0 FL LAB HEMETOLOGY METHOD 12/17/2024 4:26 PM [facility] NRBC 0.0 <1.0 % LAB HEMETOLOGY METHOD 12/17/2024 4:26 PM [facility] NRBC Absolute 0.00 <0.10 K/mcL LAB HEMETOLOGY METHOD 12/17/2024 4:26 PM [facility] Neutrophils Relative 56.9 % LAB HEMETOLOGY METHOD 12/17/2024 4:26 PM [facility] Lymphocytes Relative 28.1 % LAB HEMETOLOGY METHOD 12/17/2024 4:26 PM [facility] Monocytes Relative 7.5 % LAB HEMETOLOGY METHOD 12/17/2024 4:26 PM [facility] Eosinophils Relative 7.1 % LAB HEMETOLOGY METHOD 12/17/2024 4:26 PM [facility] Basophils Relative 0.3 % LAB HEMETOLOGY METHOD 12/17/2024 4:26 PM [facility] Immature Granulocytes Relative 0.1 % LAB HEMETOLOGY METHOD 12/17/2024 4:26 PM [facility] Neutrophils Absolute 4.46 1.50 - 7.00 K/mcL LAB HEMETOLOGY METHOD 12/17/2024 4:26 PM [facility] Lymphocytes Absolute 2.20 1.00 - 5.00 K/mcL LAB HEMETOLOGY METHOD 12/17/2024 4:26 PM [facility] Monocytes Absolute 0.59 0.20 - 1.00 K/mcL LAB HEMETOLOGY METHOD 12/17/2024 4:26 PM [facility] Eosinophils Absolute 0.56(H) 0.00 - 0.50 K/mcL LAB HEMETOLOGY METHOD 12/17/2024 4:26 PM [facility] Basophils Absolute 0.02 0.00 - 0.20 K/mcL LAB HEMETOLOGY METHOD 12/17/2024 4:26 PM [facility] Immature Granulocytes Absolute 0.01 0.00 - 0.03 K/mcL LAB HEMETOLOGY METHOD 12/17/2024 4:26 PM [facility] Blood Venous blood specimen / Unknown Venipuncture / Unknown 12/17/2024 3:12 PM EDT 12/17/2024 3:12 PM EDT Jennifer Kaufmna MD LAB BLOOD ORDERABLES Final Resul t Performing Organization Address [facility] de Phone Number [facility] [address] [place] [address], [place] [phone] * D-Dimer (12/17/2024 3:12 PM EDT) D-Dimer, Quant (D-DU) <150 <=230 ng/mL DDU LAB COAGULATION METHOD 12/17/2024 4:34 PM EDT [facility] Blood Venous blood specimen / Unknown Venipuncture / Unknown 12/17/2024 3:12 PM EDT 12/17/2024 3:12 PM EDT Narrative [facility] - 12/17/2024 4:34 PM EDT D-Dimer <230 ng/mL (D-Dimer units) is the threshold for exclusion of DVT/PE. D-Dimer may be elevated in: Critically ill, severely infected, trauma patients, DIC, acute CVA, acute NE, unstable angina, AF, old age, , and smoking. D-Dimer may be decreased with: Initiation of heparin therapy and oral anticoagulants. Jennifer Kaufman MD LAB BLOOD ORDERABLES Final Resul t Performing Organization Address [facility] de Phone Number [facility] [address] [place] [address], [place] [phone] * Pulmonary function testing: Nitric Oxide Gas Determination (12/14/2024 4:44 PM EDT) Tin Singleton MD - 12/14/2024 4:44 PM EDT NIOX is 5 ppb. us Jennifer Kaufman MD PFT ORDERABLES Final Result [...] Signed Date: 12/13/2024 18:47 ET Workstation ID: [id number] Transcribed By: Self Edit Transcribed Date: 12/13/2024 [...] Signed Date: 12/13/2024 18:47 ET Workstation ID: [id number] Transcribed By: Self Edit Transcribed Date: 12/13/2024 [...] Signed Date: 11/23/2024 23:39 ET Workstation ID: [id number] Transcribed By: Self Edit Transcribed Date: 11/23/2024 [...] Signed Date: 11/23/2024 23:39 ET Workstation ID: [id number] Transcribed By: Self Edit Transcribed Date: 11/23/2024 [...] from the original result were not included. [facility] [address] [place] [id number] Pulmonary Functions Report Date of service: 11/09/24 [...] [facility] Swab Structure of anterior region of neck / Unknown Non-blood Collection / Unknown 11/06/2024 9:13 AM EDT 11/06/2024 9:13 AM EDT us Latesha France MD LAB MICROBIOLOGY - GENERAL ORDERABLES Final Result [facility]) [facility] [address] [place] [address], [place] [phone] * XR Chest 2 Views (10/31/2024 1:52 PM EDT) Anatomical Region Laterality Modality Body Radiographic Domonique ging 10/31/2024 6:17 PM EDT Impressions 10/31/2024 6:17 PM EDT No acute cardiopulmonary process. -------- FINAL REPORT -------- Dictated By: Courtney Prakash Dictated Date: 10/31/2024 18:17 ET Assigned Physician: Courtney Prakash Reviewed and Electronically Signed By: Courtney Prakash Signed Date: 10/31/2024 18:17 ET Workstation ID: [id number] Transcribed By: Self Edit Transcribed Date: 10/31/2024 [...] Signed Date: 10/31/2024 18:17 ET Workstation ID: [id number] Transcribed By: Self Edit Transcribed Date: 10/31/2024 18:17 ET us Latesha France MD IMG XR PROCEDURES Final Res ult * Interferon gamma interpretation (10/31/2024 1:39 PM EDT) [facility] Signature Quantiferon Plus Interpretation Negative Negative LAB CHEMISTRY METHOD 11/02/2024 11:18 AM EDT [facility] Blood Venous blood specimen / Unknown Venipuncture / Unknown 10/31/2024 1:39 PM EDT 10/31/2024 1:39 PM EDT us Latesha France MD LAB BLOOD ORDERABLES Final Result Performing Organization Address City/[facility]/ZIP Co de Phone Number [facility] [address] [place] [address], [place] [phone] * Interferon gamma antigen 2 (10/31/2024 1:39 PM EDT) Blood Venous blood specimen / Unknown Venipuncture / Unknown 10/31/2024 1:39 PM EDT 10/31/2024 1:39 PM EDT us Latesha France MD LAB BLOOD ORDERABLES Final Result [facility] [address] [place] [address], [place] [phone] * Interferon gamma antigen 1 (10/31/2024 1:39 PM EDT) Blood Venous blood specimen / Unknown Venipuncture / Unknown 10/31/2024 1:39 PM EDT 10/31/2024 1:39 PM EDT us Latesha France MD LAB BLOOD ORDERABLES Final Result [facility] [address] [place] [address], [place] [phone] * Interferon gamma mitogen (10/31/2024 1:39 PM EDT) Blood Venous blood specimen / Unknown Venipuncture / Unknown 10/31/2024 1:39 PM EDT 10/31/2024 1:39 PM EDT Latesha France MD LAB BLOOD ORDERABLES Final Result Performing Organization Address City/[facility]/ZIP Co de Phone Number [facility] [address] [place] [address], [place] [phone] * Interferon gamma NIL (10/31/2024 1:39 PM EDT) Blood Venous blood specimen / Unknown Venipuncture / Unknown 10/31/2024 1:39 PM EDT 10/31/2024 1:39 PM EDT Latesha France MD LAB BLOOD ORDERABLES Final Result Performing Organization Address [facility] Co de Phone Number [facility] [address] [place] [address], [place] [phone] * Myositis panel 3 (10/31/2024 1:39 PM [...] approved by the Food and Drug Administration. NE-2 Ab Negative Negative 11/16/2024 1:10 PM EDT [...] approved by the Food and Drug Administration. Anti-U1-SENIOR MANAGER MMCOE Ab <20 <20 Units 11/16/2024 1:10 PM EDT [facility] Ku Ab Negative Negative 11/16/2024 1:10 PM EDT [facility] Comment: This test was developed and its performance characteristics determined by [facility]. It has not been cleared or approved by the Food and Drug Administration. Anti-SS-A 52 kD Ab, IgG <20 <20 Units 11/16/2024 1:10 PM EDT [facility] Comment: This test was developed and its performance characteristics determined by [facility]. It has not been cleared or approved by the Food and Drug Administration. Fibrillarin (U3 SENIOR MANAGER MMCOE) Ab Negative Negative 11/16/2024 1:10 PM EDT [facility] Comment: This test was developed and its performance characteristics determined by [facility]. It has not been cleared or approved by the Food and Drug Administration. Interpretation for Anti-Dottie-1, Ucup-MBV-9bvunl, Anti-MDA-5, Anti-NXP-2, Anti-PM/Scl-100, Anti-SS-A 52 kD, Anti-U1 SENIOR MANAGER MMCOE: Negative: <20 Weak Positive: 20 - 39 Moderate Positive: 40 - 80 Strong Positive: >80 . Test Performed by: [email or web address] [address] [place] [address] Blood Venous blood specimen / Unknown Venipuncture / Unknown 10/31/2024 1:39 PM EDT 10/31/2024 1:39 PM EDT us Latesha France MD LAB BLOOD ORDERABLES Final Result [facility] [address] [place] [address] * Basic metabolic panel (10/31/2024 1:39 PM EDT) Pathologist [facility] Sodium 136 133 - 145 mmol/L LAB CHEMISTRY METHOD 10/31/2024 4:33 PM EDT [facility] Potassium 4.6 3.5 - 5.5 mmol/L LAB CHEMISTRY METHOD 10/31/2024 4:33 PM EDT [facility] Chloride 103 96 - 110 mmol/L LAB CHEMISTRY METHOD 10/31/2024 4:33 PM EDT [facility] CO2 29 21 - 32 mmol/L LAB CHEMISTRY METHOD 10/31/2024 4:33 PM EDT [facility] Anion Gap 4 3 - 11 LAB CHEMISTRY METHOD 10/31/2024 4:33 PM EDT [facility] Glucose 76 70 - 100 mg/dL LAB CHEMISTRY METHOD 10/31/2024 4:33 PM EDT [facility] BUN 10 5 - 25 mg/dL LAB CHEMISTRY METHOD 10/31/2024 4:33 PM EDT [facility] Creatinine 0.65 0.50 - 1.10 mg/dL LAB CHEMISTRY METHOD 10/31/2024 4:33 PM EDT [facility] eGFR 127 >=60 mL/min/1. 73m2 LAB CHEMISTRY METHOD 10/31/2024 4:33 PM EDT [facility] Comment:Calculation based on the Chronic Kidney Disease Epidemiology Collaboration (CKD-EPI) equation refit without adjustment for race. BUN/Creatinine Ratio 15.4 LAB CHEMISTRY METHOD 10/31/2024 4:33 PM EDT [facility] Calcium 9.7 8.5 - 10.5 mg/dL LAB CHEMISTRY METHOD 10/31/2024 4:33 PM [facility] Blood Venous blood specimen / Unknown Venipuncture / Unknown 10/31/2024 1:39 PM EDT 10/31/2024 1:39 PM EDT us Latesha France MD LAB BLOOD ORDERABLES Final Result [facility] [address] [place] [address], * Lipid panel with reflex to direct [...] Result [facility] [address] [place] [address], * Cervical Cancer Screening: HPV (08/30/2023) Pathologist [facility] Cervical Cancer Screening: HPV abstracted; no interpretation Historical Provider HEALTH MAINTENANCE Final Result * Depression Screening (07/29/2023) [facility] Depression Screening abstracted Historical [facility] MAINTENANCE Final Result from Last 3 Months or Most Recently Relevant to Health Maintenance Insurance [facility] Care Teams Demand Planning Manager Relationship Specialty Start Date End Date Latesha France MD [address] [place] [id number] PCP - General Internal Medicine 02/13/24
--- OUTSIDE RECORDS SUMMARY | 2025-01-31 10:47 | XMS_ITS | Encounter Summary ---
Author Organization [facility] Address [address] [place] [address] Care Team Providers Care Ip Network Architect Name Role Phone Latesha France MD Primary Care Provider [phone] Reason for Visit * Reason Onset Date Comments Dizziness 01/10/2025 Nausea 01/10/2025 Abdominal Pain 01/10/2025 Encounter Details Date Type Department Care Team ([facility] st Contact Info) Description 01/10/2025 Telephone [place] [facility] [place] [address] [place] [address] Latesha France MD [address] [place] [address] Social History Tobacco Use Types Packs/Day Years [...] Her bp has dropped, it was on 10/ 4pm 92/47 p71 She feels Med not helping, after eating she feels nauseated Med: Baclofen 10 mg 1.5 mg, three times a day Was seen by Sebastián at [facility] she eulogio call them and let [...] recently to another state outside of [place], [place], [place], [place], [place], [place], [place]? no o If yes, did you quarantine [...] gather 3rd green party insurance information Third Democrat Information: not applicable PCP: Latesha France MD Payor: [employer] PLAN / Plan: [employer] MEDICAID / Product Type: *No Product type* / documented in this encounter Plan of Treatment Upcoming Encounters Date Type Department Care Team (Late st Contact Info) Description 02/04/2025 1:00 PM EST Clinical Support Obstetrics and Gynecology - [place] [address] [place], [place] [phone] 02/07/2025 2:00 PM EST Consult Neurosurgery [place] 175 [facility] [address] [place] [phone] Ana Luisa Olmos PA 175 [facility], [address] [place] [address] 02/12/2025 1:00 PM EST Office Visit Adult [address] [phone] Latesha France MD [address] [place], [place] 03/22/2025 3:00 PM EST Office Visit Adult Medicine [address] [phone] Latesha France MD [address] [place], [place] 04/22/2025 11:10 AM EST Consult [facility] - [facility] [address] [facility] [address] [place] [phone] Romeo Renee MD [address] [place] [address] Dr [address] [place] [phone] 06/13/2025 2:30 PM EDT Office Visit Pulmonology - [place] 175 [facility] [address] [place] [phone] Jennifer Kaufman MD [address] [place] [phone] 06/26/2025 1:40 PM EDT Office Visit Gastroenterology - 299 [facility] 299 [facility] [address] [place] [phone] Yanet Guy, LEANA [address] [facility] [address] [place] [address] documented as of this encounter Goals Goal [...] on filedocumented in this encounter Care Teams Ip Network Architect Relationship Specialty Start Date End Date Latesha France MD [address] [place] [address] PCP - General Internal Medicine 02/13/24 documented as of this encounter
--- NOTE | 2025-01-31 11:44 | EMG_ITS ---
Chief complaint:? G25.9 Extrapyramidal and movement disorder Reason for referral: Evaluate for Peripheral neuropathy Referred by:? KAREN Jesus Procedure done:? Right lower extremity NCS/EMG [place] 485[address] Right peroneal and tibial motor studies were performed with F responses. Right tibial H-reflex was obtained. Right superficial peroneal and sural sensory studies were performed an EMG needle examination was performed. Findings: No significant abnormality noted. Impression: No significant abnormality noted on this study to suggest neuropathy or radiculopathy. [facility]
== END 2025-01-31 09:36 | disposition home or self-care (01) ==
LOC: HO.NEURO 09:35
PROVIDERS: PCP Internal Medicine; Visit Provider Physician Assistant Medical
DX: G25.9 Extrapyramidal and movement disorder, unspecified (principal)
CPT/HCPCS: 95886; 95910

== ENCOUNTER → 2025-01-31 11:44 | Outpatient (BNV) | payer OTHER, SELFPAY | PROVIDERS: PCP Internal Medicine; Visit Provider Psychiatry & Neurology Neurology | DX: G25.9 Extrapyramidal and movement disorder, unspecified (principal) | CPT/HCPCS: 95886; 95910 ==

== ENCOUNTER 2025-02-15 16:10 | Emergency (ER) | payer OTHER, SELFPAY ==
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
--- OUTSIDE RECORDS SUMMARY | 2025-02-12 14:05 | XMS_ITS | Encounter Summary ---
Author Organization [facility] Address [address] [place] [address] Care Team Providers Care Power Cutting Machine Operator Name Role Phone Latesha France MD Primary Care Provider +1- [phone] Encounter Details Date Type Department Care Team (Latest Contact Info) Description 02/12/2025 2:05 PM EST - 02/12/2025 11:59 PM EST Hospital Encounter [facility] - [place] [address] [place] [address] Pain of left upper extremity Discharge Disposition: Home or Self Care Social History Tobacco Use Types Packs/Day Years Used Date Smoking Tobacco: Former Cigarettes 0 2 025 - 2015 Passive Smoke Exposure: Past Smokeless Tobacco: Never [...] this encounter Medications at Time of Discharge acetaminophen (TYLENOL) 325 mg tablet Take 2 tablets (650 mg total) by mouth every 6 (six) hours if needed. for pain albuterol HFA (Ventolin HFA) 90 mcg/actuation inhaler Inhale 2 puffs by mouth every 6 (six) hours if needed for shortness of breath. 8 g 1 10/31/2024 benzoyl peroxide (Acne Medication) 2.5 % gel Apply 1 g topically 2 times daily as needed (acne). 30 g 4 01/25/2025 cholecalciferol (Vitamin D3) 50 mcg (2,000 unit) capsule Take 1 capsule (2,000 Units total) by mouth 1 (one) time each day. 30 each 11 02/12/2025 6 cyanocobalamin, vitamin B-12, 1,000 mcg tablet, sublingual PLACE 1 TAB UNDER THE TONGUE EVERY DAY FOR ANEMIA FOR 3 MONTHS cyclobenzaprine (FLEXERIL) 5 mg tablet Take 1 tablet (5 mg total) by mouth at bedtime as needed for muscle spasms. 30 tablet 01/25/2025 5 diclofenac (VOLTAREN) 1 % topical gel Apply 2 g topically 2 (two) times a day. 60 g 1 02/12/2025 diclofenac (VOLTAREN) 50 mg EC tablet Take 1 tablet (50 mg total) by mouth 2 (two) times a day if needed (PAIN). Do not crush, chew, or split. 28 tablet 1 02/12/2025 fluticasone propionate (FLONASE) 50 mcg/actuation nasal spray Administer 1 spray into each nostril 1 (one) time each day. Shake gently. Before first use, prime pump. After use, clean tip and replace cap. 16 mL 3 01/25/2025 ibuprofen (ADVIL,MOTRIN) 600 mg tablet Take 1 tablet (600 mg total) by mouth every 8 (eight) hours if needed for mild pain or moderate pain (pain). 60 tablet 2 11/30/2024 lidocaine (LIDODERM) 5 % patch Apply 1 patch topically 1 (one) time each day if needed for moderate pain or severe pain. Apply to painful area 12 hours per day, remove for 12 hours. 30 each 2 02/12/2025 medroxyPROGESTERone (Depo-Provera) 150 mg/mL injection Inject 1 mL (150 mg total) into the shoulder, thigh, or buttocks every 3 (three) months. 1 mL 3 08/17/2024 ondansetron ODT (ZOFRAN-ODT) 4 mg disintegrating tablet Dissolve 1 tablet (4 mg total) on top of the tongue every 8 (eight) hours if needed for nausea or vomiting. 20 tablet 3 12/07/2024 prazosin (MINIPRESS) 1 mg capsule Take 1 capsule (1 mg total) by mouth at bedtime. 01/17/2025 sertraline (ZOLOFT) 25 mg tablet Take 1 [...] EST Office Visit Adult Medicine West - [address] [address] Latesha France MD [address] [place] [address] 04/22/2025 11:10 AM EST Consult [facility] [address] [facility] 154 [place] [address] Romeo Renee MD [address] [place] [address] [place] [address] 04/29/2025 2:00 PM EST Clinical Support Obstetrics and Gynecology - [address] [address] 06/13/2025 2:30 PM EDT Office Visit Pulmonology - [place] 175 [facility] 200 [place] [address] Jennifer Kaufman MD [address] [place] [phone] 06/26/2025 1:40 PM EDT Office Visit Gastroenterology - [address] [place] 299 [facility] [address] [place] [address] BrooksYanet, LEANA 299 [facility] [address] [place] [address] documented as of this encounter Goals Goal [...] Name Priority Date/Time Associated Diagnosis Comments XR SHOULDER 2+ VIEWS LEFT Routine 02/12/2025 2:18 PM EST Pain of left upper extremity documented in this encounter Results * XR Shoulder 2+ Views Left (02/12/2025 2:18 PM EST) Anatomical Region Laterality Modality Upper Extremities, Shoulder Left Radi ographic Imaging 02/12/2025 10:3 4 PM EST Impressions 02/12/2025 10:37 PM EST No abnormality detected. -------- FINAL REPORT -------- Dictated By: Merle Rao Dictated Date: 02/12/2025 22:34 ET Assigned Physician: Merle Rao Reviewed and Electronically Signed By: Merle Rao Signed Date: 02/12/2025 22:37 ET Workstation ID: [id number] Transcribed By: Self Edit Transcribed Date: 02/12/2025 22:34 ET Narrative 02/12/2025 10:37 PM EST EXAM: Left shoulder x-ray HISTORY: Left shoulder pain. COMPARISON: None FINDINGS: 4 views performed. No acute fracture or dislocation detected. No appreciable degenerative changes at the acromioclavicular and glenohumeral joints. No destructive bone lesion. No soft tissue calcifications. Procedure Note Merle Rao MD - 02/12/2025 EXAM: Left shoulder x-ray HISTORY: Left shoulder pain. COMPARISON: None FINDINGS: 4 views performed. No acute fracture or dislocation detected. No appreciable degenerativechanges at the acromioclavicular and glenohumeral joints. No destructivebone lesion. No soft tissue calcifications. IMPRESSION: No abnormality detected. -------- FINAL REPORT -------- Dictated By: Merle Rao Dictated Date: 02/12/2025 22:34 ET Assigned Physician: Merle Rao Reviewed and Electronically Signed By: Merle Rao Signed Date: 02/12/2025 22:37 ET Workstation ID: [id number] Transcribed By: Self Edit Transcribed Date: 02/12/2025 22:34 ET us Latesha France MD IMG XR PROCEDURES Final Res ult documented in this encounter Visit Diagnoses Diagnosis Pain of left upper extremity documented in this encounter Care Teams Power Cutting Machine Operator Relationship Specialty Start Date End Date Latesha France MD [address] [place] [address] PCP - General Internal Medicine 02/13/24 documented as of this encounter
--- OUTSIDE RECORDS SUMMARY | 2025-02-15 14:15 | XMS_ITS | Encounter Summary ---
Author Organization [facility] Address [address] [place] [address] Care Team Providers Care Mock Up Assembler Name Role Phone Latesha France MD Primary Care Provider +1- [phone] Encounter Details Date Type Department Care Team ([facility] [address] Contact Info) Description 02/15/2025 2:15 PM EST Lab Draw Station - [address] Increased sputum production Social History Tobacco Use Types Packs/Day Years [...] Department Care Team (Late Contact Info) Description 03/22/2025 3:00 PM EST Office Visit Adult Medicine [address] [phone] Latesha France MD [address] [place] [address] 04/22/2025 11:10 AM EST Consult [facility] - [facility] 154 300 [facility] 154 [place] [address] Romeo Renee MD [address] [place] [address] [place] [address] 04/29/2025 2:00 PM EST Clinical Support Obstetrics and Gynecology [facility] 444 [place] [address] 06/13/2025 2:30 PM EDT Office Visit Pulmonology - [place] 175 [facility] [address] [place] [address] Jennifer Kaufman MD 230 [place] [address] 06/26/2025 1:40 PM EDT Office Visit Gastroenterology - 299 [facility] 299 [facility] 419 [place] [address] Yanet Guy NP 299 [facility] 419 [place] [address] Pending Results Name Type Priority Associated Diagnoses Date /Time Culture sputum Microbiology Routine Increased sputum production 02/15/2025 2:36 PM EST documented as of this encounter Goals Goal [...] as of this encounter Visit Diagnoses Diagnosis Increased sputum production documented in this encounter Care Teams Mock Up Assembler Relationship Specialty Start Date End Date Latesha France MD 4 [place] [address] PCP - General Internal Medicine 02/13/24 documented as of this encounter
--- NOTE | 2025-02-15 16:15 | ECG_ITS ---
Test Reason : SYNCOPE Blood Pressure : */* mmHG Vent. Rate : 85 BPM Atrial Rate : 85 BPM P-R Int : 110 ms QRS Dur : 68 ms QT Int : 346 ms P-R-T Axes : 59 40 53 degrees QTcB Int : 411 ms Sinus rhythm with sinus arrhythmia with short WI Otherwise normal ECG When compared with ECG of 27-Jan-2025 18:17, No significant change was found Referred By: Generic ED Physician Electronically Signed By: MONICA FISHER
[2025-02-15 16:25] VITALS: BP 111/82; BP 129/73; PULSE 79; PULSE 88; RESP 18; TEMP 36.9; O2SAT 100; O2SAT 99; BMI 23.5
--- OUTSIDE RECORDS SUMMARY | 2025-02-15 16:47 | XMS_ITS | Encounter Summary ---
Author Organization [facility] Address [address] [place] [address] Care Team Providers Care Hide Worker Name Role Phone Latesha France MD Primary Care Provider +1- [phone] Encounter Details Date Type Department Care Team (Late Contact Info) Description 01/29/2025 Results Follow-Up Adult [address] [phone] Latesha France MD [address] [place] [address] Social History Tobacco Use Types Packs/Day Years [...] 3:00 PM EST Office Visit Adult Medicine [address] [phone] Latesha France MD [address] [place] [address] 04/22/2025 11:10 AM EST Consult [facility] - [facility] [address] 300 [facility] 154 [place] [phone] Romeo Renee MD [address] [place] [address] [place] [address] 04/29/2025 2:00 PM EST Clinical Support Obstetrics and Gynecology - [place] 444 [place] [address] 06/13/2025 2:30 PM EDT Office Visit Pulmonology - [place] 175 [facility] 200 [place] [address] Jennifer Kaufman MD [address] [place] [phone] 06/26/2025 1:40 PM EDT Office Visit Gastroenterology - 299 [place] 299 [facility] 419 [place] [phone] Yanet Guy, LEANA 299 [facility] 419 [place] [address] documented as of this encounter Goals Goal [...] on filedocumented in this encounter Care Teams Hide Worker Relationship Specialty Start Date End Date Latesha France MD [address] [place] [address] PCP - General Internal Medicine 02/13/24 documented as of this encounter
--- OUTSIDE RECORDS SUMMARY | 2025-02-15 16:47 | XMS_ITS | Encounter Summary ---
Author Organization [facility] Address [address] [place] [address] Care Team Providers Care Car Dealer Name Role Phone Latesha France MD Primary Care Provider +1- [phone] Reason for Visit * Reason Onset Date Comments Hypotension 03/19/2024 Encounter Details Date Type Department Care Team (Late st Contact Info) Description 03/19/2024 Nurse Triage Adult Medicine [facility] 444 [place] [address] Latesha France MD 444 [place] [address] Social History Tobacco Use Types Packs/Day Years [...] recently to another state outside of [place], [place], [place], [place], [place], [place], [place]? no o If yes, did you [...] gather 3rd constitution party insurance information Third Democrat Information: not applicable PCP: Latesha France MD Payor: [employer] PLAN / Plan: [employer] MEDICAID / Product Type: *No Product type* / documented in this encounter Plan of Treatment Upcoming Encounters Date Type Department Care Team (Late st Contact Info) Description 03/22/2025 3:00 PM EST Office Visit Adult Medicine West - [address] [phone] Latesha France MD [address] [place] [address] 04/22/2025 11:10 AM EST Consult [facility] - [facility] [address] 300 [facility] 154 [place] [address] Romeo Renee MD [address] [place] [address] [place] [address] 04/29/2025 2:00 PM EST Clinical Support Obstetrics and Gynecology - [address] [address] 06/13/2025 2:30 PM EDT Office Visit Pulmonology - [place] 175 [facility] [address] [place] [address] Jennifer Kaufman MD [address] [place] [phone] 06/26/2025 1:40 PM EDT Office Visit Gastroenterology - 299 [address] [facility] [address] [place] [address] Yanet Guy, LEANA [address] [facility] [address] [place] [address] documented as of this encounter Visit Diagnoses Not on filedocumented in this encounter Additional Health Concerns Infection Onset Date Last Indicated Resolved Time Respiratory Rule-Out 05/22/2024 05/22/2024 025 7:00 PM EST C. difficile Rule-Out 05/23/2024 05/22/20242024 4:54 PM EST documented as of this encounter Care Teams Car Dealer Relationship Specialty Start Date End Date Latesha France MD [address] [place] [address] PCP - General Internal Medicine 02/13/24 documented as of this encounter
--- OUTSIDE RECORDS SUMMARY | 2025-02-15 16:47 | XMS_ITS | Encounter Summary ---
Author Organization [facility] Address [address] [place] [address] Care Team Providers Care Looping Inspector Name Role Phone Latesha France MD Primary Care Provider +1- [phone] Encounter Details Date Type Department Care Team (Late Contact Info) Description 01/29/2025 Results Follow-Up Adult [address] [phone] Latesha France MD [address] [place] [address] Social History Tobacco Use Types Packs/Day Years [...] 3:00 PM EST Office Visit Adult Medicine [address] [phone] Latesha France MD [address] [place] [address] 04/22/2025 11:10 AM EST Consult [facility] - [facility] [address] 300 [facility] 154 [place] [address] Romeo Renee MD [address] [place] [address] [place] [address] 04/29/2025 2:00 PM EST Clinical Support Obstetrics and Gynecology - [place] 444 [place] [address] 06/13/2025 2:30 PM EDT Office Visit Pulmonology - [place] 175 [facility] 200 [place] [address] Jennifer Kaufman MD [address] [place] [phone] 06/26/2025 1:40 PM EDT Office Visit Gastroenterology - 299 [address] 299 [facility] 419 [place] [phone] Yanet Guy, LEANA 299 [facility] 419 [place] [address] documented as of this encounter Goals Goal [...] on filedocumented in this encounter Care Teams Looping Inspector Relationship Specialty Start Date End Date Latesha France MD [address] [place] [address] PCP - General Internal Medicine 02/13/24 documented as of this encounter
--- OUTSIDE RECORDS SUMMARY | 2025-02-15 16:47 | XMS_ITS | Encounter Summary ---
Author Organization [facility] Address [address] [place] [address] Care Team Providers Care Nitric Acid Concentrator Operator Name Role Phone Latesha Franec MD Primary Care Provider [phone]- [phone] Reason for Visit * Reason Onset Date Comments Cough 04/02/2024 Encounter Details Date Type Department Care Team (Late st Contact Info) Description 04/02/2024 Nurse Triage Adult Medicine [facility] 444 [place] [address] Latesha France MD 444 [place] [address] Social History Tobacco Use Types Packs/Day Years [...] traveled recently to another state outside of [place], [place], [place], [place], [place], [place], [place]? no o If yes, did you [...] Information: n/a PCP: Latesha France MD [facility] [employer] PLAN / Plan: [employer] [facility] MEDICAID / Product Type: *No Product type* / documented in this encounter Plan of Treatment Upcoming Encounters Date Type Department Care Team (Late st Contact Info) Description 03/22/2025 3:00 PM EST Office Visit Adult Medicine West - [place] 444 [place], [place] [phone] Latesha France MD 444 [place], [place] 04/22/2025 11:10 AM EST Consult [facility] - [facility] 154 300 [facility] 154 [place] [phone] Romeo Renee MD [address] [place] [address] [place] [phone] 04/29/2025 2:00 PM EST Clinical Support Obstetrics and Gynecology - [address] [phone] 06/13/2025 2:30 PM EDT Office Visit Pulmonology - [place] 175 [facility] 200 [place] [address] Jennifer Kaufman MD [address] [place] [phone] 06/26/2025 1:40 PM EDT Office Visit Gastroenterology - 299 [facility] 299 [facility] 419 [place] [address] Yanet Guy NP 299 [facility] 419 [place] [address] documented as of this encounter Visit Diagnoses Not on filedocumented in this encounter Additional Health Concerns Infection Onset Date Last Indicated Resolved Time Respiratory Rule-Out 05/22/2024 05/22/2024 025 7:00 PM EST C. difficile Rule-Out 05/23/2024 05/22/20242024 4:54 PM EST documented as of this encounter Care Teams Nitric Acid Concentrator Operator Relationship Specialty Start Date End Date Latesha France MD [address] [place] [address] PCP - General Internal Medicine 02/13/24 documented as of this encounter
--- OUTSIDE RECORDS SUMMARY | 2025-02-15 16:47 | XMS_ITS | Encounter Summary ---
Author Organization [facility] Address [address] [place] [address] Care Team Providers Care Checker Bakery Products Name Role Phone Latesha Barcenas MD Primary Care Provider [phone]- [phone] Reason for Visit * Reason Onset Date Comments PASS OUT 02/15/2025 Encounter Details Date Type Department Care Team ([facility] st Contact Info) Description 02/15/2025 Telephone Adult Medicine [facility] 444 [place] [address] Latesha Barcenas MD 444 [place] [address] Social History Tobacco Use Types Packs/Day Years [...] Progress Notes * Agustina Nagy RN - 02/15/2025 3:58 PM EST Pt was standing outside the lab and felt very cold, started shaking and told partner she felt faint, she was able to walk in but does not feel she can get home Pt is awake , alert, does respond to her name , color pink , respirations regular without distress,pt moves all extremities, she is sitting , denies any chest pain or SOB, feels weak and tired , partner is with her , pt to go to er ems called and transported to [facility] dr barcenas aware and agrees withdisposition * Vika Green - 02/15/2025 3:19 PM EST Patient call requires triage: Symptoms patient is presenting: PATIENT WAS IN THE LAB AND WALKED OUT SHE FELT LIKE SHE GOING TO PASS OUT AND LEGS ARE STIFF. How long has patient had these symptoms?: SINCE 3 :00 PM For ALL patients calling to schedule any [...] traveled recently to another state outside of [place], [place], [place], [place], [place], [place], [place]? no o If yes, did you quarantine [...] Third Republican Information: not applicable PCP: Latesha Barcenas MD Payor: [employer] HEALTH PLAN / Plan: [employer] MEDICAID / Product Type: *No Product type* / documented in this encounter Plan of Treatment Upcoming Encounters Date Type Department Care Team (Late st Contact Info) Description 03/22/2025 3:00 PM EST Office Visit Adult Medicine [address] [phone] Latesha Barcenas MD 444 [place] [address] 04/22/2025 11:10 AM EST Consult [facility] - [facility] 154 300 [facility] 154 [place] [phone] Romeo Renee MD [address] [place] [address] [place] [address] 04/29/2025 2:00 PM EST Clinical Support Obstetrics and Gynecology - [place] 444 [place] [phone] 06/13/2025 2:30 PM EDT Office Visit Pulmonology - [place] 175 [facility] 200 [place] [address] Jennifer Kaufman MD [address] [place] [phone] 06/26/2025 1:40 PM EDT Office Visit Gastroenterology - 299 [facility] 299 [facility] 419 [place] [address] Yanet Guy NP 299 [facility] 419 [place] [address] documented as of this encounter Goals Goal [...] on filedocumented in this encounter Care Teams Checker Bakery Products Relationship Specialty Start Date End Date Latesha Barcenas MD 444 [place], [place] PCP - General Internal Medicine 02/13/24 documented as of this encounter
--- OUTSIDE RECORDS SUMMARY | 2025-02-15 16:47 | XMS_ITS | Encounter Summary ---
Author Organization [facility] Address [address] [place] [address] Care Team Providers Care Green Feed Attendant Name Role Phone Latesha France MD Primary Care Provider [phone] Reason for Visit * Reason Onset Date Comments Medication Problem 02/08/2025 Encounter Details Date Type Department Care Team ([facility] st Contact Info) Description 02/08/2025 Telephone Adult Medicine [address] [phone] Tayler Mandujano MA Social History Tobacco Use [...] Progress Notes * Agustina Nagy RN - 02/12/2025 10:19 AM EST Pt due to see dr France today * Tayler Mandujano MA - 02/08/2025 10:07 AM EST Medication Problem: What is the name of the medication patient is having a problem with?: CYCLOBENZAPRINE 5MG What is the problem?: PATIENT IS HAVING ABDOMINAL PAIN/NAUSEA Who is calling about the problem? : The patient Is this a NEW medication?: yes How long has the patient been taking this medication? 1 WEEK AND 5 DAYS Who prescribed this medication for the patient? PCP Who is patients PCP?: Latesha France MD Payor: [facility] / Plan: [facility] MEDICAID / Product Type: *No Product type* / documented in this encounter Plan of Treatment Upcoming Encounters Date Type Department Care Team (Late st Contact Info) Description 03/22/2025 3:00 PM EST Office Visit Adult Medicine [place] [facility] [place] 444 [place], [place] [phone] Latesha France MD 444 [place], [place] 04/22/2025 11:10 AM EST Consult [facility] - [facility] 154 300 [facility] 154 [place] [phone] Romeo Renee MD [address] [place] [address] [place] [address] 04/29/2025 2:00 PM EST Clinical Support Obstetrics and Gynecology - [address] [phone] 06/13/2025 2:30 PM EDT Office Visit Pulmonology - [place] 175 [facility] 200 [place] [address] Jennifer Kaufman MD 230 [place] [phone] 06/26/2025 1:40 PM EDT Office Visit Gastroenterology - 299 [place] 299 [facility] 419 [place] [address] Yanet Guy NP 299 [facility] 419 [place] [address] documented as of this encounter Goals Goal [...] on filedocumented in this encounter Care Teams Green Feed Attendant Relationship Specialty Start Date End Date Latesha France MD [address] [place] [address] PCP - General Internal Medicine 02/13/24 documented as of this encounter
--- OUTSIDE RECORDS SUMMARY | 2025-02-15 16:47 | XMS_ITS | Encounter Summary ---
Author Organization [facility] Address [address] [place] [address] Care Team Providers Care Ground Services Instructor Name Role Phone Latesha France MD Primary Care Provider [phone] Encounter Details Date Type Department Care Team (Late Contact Info) Description 02/13/2025 Results Follow-Up [address] [phone] Latesha France MD [address] [place] [address] Social History Tobacco Use Types Packs/Day Years [...] 03/22/2025 3:00 PM EST Office Visit Adult [address] [phone] Latesha France MD [address] [place] [address] 04/22/2025 11:10 AM EST Consult [facility] - [facility] [address] 300 [facility] 154 [place] [address] Romeo Renee MD [address] [place] [address] Dr [address] [place] [address] 04/29/2025 2:00 PM EST Clinical Support Obstetrics and Gynecology - [place] 444 [place] [address] 06/13/2025 2:30 PM EDT Office Visit Pulmonology - [place] 175 [facility] 200 [place] [address] Jennifer Kaufman MD 230 [place] [address] 06/26/2025 1:40 PM EDT Office Visit Gastroenterology - [address] 299 [facility] 419 [place] [address] Yanet Guy NP 299 [facility] 419 [place] [address] documented as of this encounter Goals Goal [...] on filedocumented in this encounter Care Teams Ground Services Instructor Relationship Specialty Start Date End Date Latesha France MD 4 [place] [address] PCP - General Internal Medicine 02/13/24 documented as of this encounter
--- OUTSIDE RECORDS SUMMARY | 2025-02-15 16:47 | XMS_ITS | Encounter Summary ---
Author Organization [facility] Address [address] [place] [address] Care Team Providers Care Academic Advising Director Name Role Phone Latesha France MD Primary Care Provider [phone] Reason for Visit * Reason Onset Date Comments TEST REQUEST 02/13/2025 Encounter Details Date Type Department Care Team ([facility] st Contact Info) Description 02/13/2025 Telephone Adult Medicine [address] [phone] [facility] [place] Social History Tobacco Use Types Packs/Day Years [...] Refills Last Filled Start Date End Date celecoxib (CeleBREX) 200 mg capsule Take 1 capsule (200 mg total) by mouth 2 (two) times a day. 60 each 5 02/14/2025 documented in this encounter Progress Notes * Agustina Nagy RN - 02/14/2025 4:45 PM EST Pt is aware and will take as directed * Latesha France MD - 02/14/2025 4:42 PM EST If voltaren tablet has not improved pain Recommend celebrex (Rx sent) * gAustina Nagy RN - 02/14/2025 2:30 PM EST Pt was seen 02/12 she did c/o ongong throat pt and pt was advised to f/u with ENT and schedule CT as discussed with ENT Pt states current pain management plan is not effective in spite of all meds she has continual 10/10 pain meds in her back, unable to get comfortable . Asking for plan to address pain * Agustina Nagy RN - 02/14/2025 2:28 PM EST Pt is due to see ENT and will go * Tayler Mandujano MA - 02/13/2025 11:45 AM EST Patient is requesting a x-ray of her throat.Patient states it hurts when she swallows.Please Advise. documented in this encounter Plan of Treatment Upcoming Encounters Date Type Department Care Team (Late st Contact Info) Description 03/22/2025 3:00 PM EST Office Visit Adult Medicine [place] [facility] [place] [address] [place] [address] Latesha France MD 444 [place] [address] 04/22/2025 11:10 AM EST Consult [facility] - [facility] 154 300 [facility] 154 [place] [address] Romeo Renee MD [address] [place] [address] Dr [address] [place] [address] 04/29/2025 2:00 PM EST Clinical Support Obstetrics and Gynecology - [place] [address] [place] [address] 06/13/2025 2:30 PM EDT Office Visit Pulmonology - [place] 175 [facility] 200 [place] [address] Jennifer Kaufman MD 230 [place] [address] 06/26/2025 1:40 PM EDT Office Visit Gastroenterology - 299 [facility] 299 [facility] 419 [place] [address] Yanet Guy, LEANA 299 [facility] 419 [place] [address] documented as of this encounter Goals Goal [...] on filedocumented in this encounter Care Teams Academic Advising Director Relationship Specialty Start Date End Date Latesha France MD 4 [place] [address] PCP - General Internal Medicine 02/13/24 documented as of this encounter
--- OUTSIDE RECORDS SUMMARY | 2025-02-15 16:48 | XMS_ITS | Data Portability ---
Author Organization [place] - [facility], Allergy Address [address] [address] Care Team Providers Care Bench Mechanic Name Role Phone EMMY MORILLO Primary Care Provider Assessment Encounter Date Assessment Date Assessment LastModified by Organization Details LastModified Time 02/01/2025 02/01/2025 The patient presents with chronic neck pain and enlarged tonsils. +3 tonsils bilaterally tonsil stones are present. The neck pain appears to be muscular in origin, specifically involving the sternocleidomas toid muscle, with no evidence of masses or lymphadenopathy . This pain has been persistent for a few years now without prior workup.. The patient was advised that enlarged tonsils alone do not necessitate removal unless associated with recurring infections, tonsil stones, or sleep apnea. A CT scan of the neck was ordered to further evaluate the chronic neck pain. The patient was instructed to follow up within one month for review of the imaging results. She was also advised to use Debrox or peroxide for cerumen buildup in both ears and to avoid Q-tip use. Massage, warm compresses, and ibuprofen were recommended for muscular neck pain management. The patient was educated on saltwater gargles as a potential alleviating measure for throat irritation. [email or web address] Not available 02/01/2025 13:18:59 Plan of Treatment Reminders Order Date Submit Date Provider Last Modified By Organization Details Last Modified Time Details Appointments Hearing Test 2025 10:00A M Hearing Test Not available Not available Not available New Patient 30 2025 10:45A M KAREN ISABEL Not available Not available Not available Lab None recorded. Referral None recorded. Procedures None recorded. Surgeries None recorded. Imaging CT, neck, soft tissue, w/ contrast 2024 025 [facility] [place], [address], [place], [address], 02/13/2025 16:57:32 Medication Orders None recorded. Patient TargetsNo targets recorded. Patient Instructions Encounter Date Encounter Id Patient Instructions Last Modified By Organization Details Last Modified Time 02/01/2025 [id number] - Discuss sleep study with primary care physician. - Use Debrox or peroxide for cerumen buildup in both ears and avoid Q-tip use. - Apply massage and warm compresses to the neck for pain relief. - Take ibuprofen as needed for muscular neck pain. - Perform saltwater gargles for throat irritation. - Follow up within one month for review of CT scan results. [email or web address] Not available 02/01/2025 13:16:08 Please note: Parts of this encounter note have been generated by AI based on audio conversation. Patient consent was required prior to utilizing this technology. Content review was required prior to finalizing the note. [email or web address] Not available 02/01/2025 13:16:08 Reason for Referral None Reported. Problems Name Problem SNOMED Code Status Onset Date Resolution Date Notes Provider Name and Address Organization Details Recorded Time Hypertrophy of tonsils AND adenoids 56880780 Active 20[address], [address], [facility] - [facility] 5 12:09:04 Chronic pharyngitis 857812 Active 2024 Juan Raphael [address], [address], [facility] 12:09:04 Chronic neck pain [id number] Active 2024 Juan Raphael [address], [address], [facility] - [facility] 13:19:04 Problem Notes None recorded. Medical Equipment None Reported. Allergies No known drug allergies Medications Name Sig Start Date Stop Date Status Note LastModified by Organization Details LastModified Time acetaminoph en 325 mg tablet TAKE 2 TABLETS BY MOUTH EVERY 6 HOURS NEEDED FOR PAIN active Not Available Not Available No t Available prazosin 1 mg capsule TAKE 1 CAPSULE BY MOUTH EVERYDAY AT BEDTIME 02/01 completed Not Available Not Available Not Available sumatriptan 25 mg tablet TAKE 1 TABLET BY MOUTH IF NEEDED FOR MIGRAINE. MAY REPEAT ONCE IN 2 HOURS IF NO RELIEF *MAX 2 TAB/DAY active Not Available Not Available No t Available benzoyl peroxide 2.5 % topical gel APPLY 1 G TOPICALLY 2 TIMES DAILY NEEDED (ACNE). active Not Available Not Available No t Available ondansetron HCl 4 mg tablet TAKE 1 TABLET BY MOUTH EVERY 8 HOURS NEEDED FOR NAUSEA AND VOMITING 02/01 completed Not Available Not Available Not Available prednisone 20 mg tablet TAKE 3 TABS BY MOUTH DAILY X3DAYS, THEN 2 TABS DAILY X3DAYS, 1 TABS DAILY X3DAYS, THEN STOP 02/01 completed Not Available Not Available Not Available acetaminoph en 500 mg tablet TAKE 2 TABLETS BY MOUTH EVERY 8 HOURS NEEDED FOR FEVER OR PAIN 02/01 completed Not Available Not Available Not Available zolmitripta n 2.5 mg tablet TAKE 1 TABLET BY MOUTH ONCE IF NEEDED FOR MIGRAINE. MAY REPEAT ONCE AFTER 2 HOURS. active Not Available Not Available No t Available magnesium oxide 400 mg (241.3 mg magnesium) tablet TAKE 1 TABLET BY MOUTH 1 TIME EACH DAY. 02/01 completed Not Available Not Available Not Available baclofen 10 mg tablet TAKE 1&1/2 TABLETS BY MOUTH THREE TIMES A DAY FOR 28 DAYS active Not Available Not Available No t Available cephalexin 500 mg capsule TAKE 1 CAPSULE ORALLY 3 TIMES A DAY FOR 7 DAYS 01/29 completed Not Available Not Available Not Available ferrous sulfate 325 mg (65 mg iron) tablet PLEASE SEE ATTACHED FOR DETAILED DIRECTION S active Not Available Not Available No t Available ibuprofen 200 mg tablet TAKE 2 TABLET BY MOUTH EVERY 6 HOURS, NEEDED FOR PAIN 02/01 completed Not Available Not Available Not Available phenobarbit al 30 mg tablet TAKE 1 TABLET BY MOUTH EVERY DAY AT BEDTIME FOR 30 DAYS 02/01 completed Not Available Not Available Not Available gabapentin 300 mg capsule TAKE 1 CAPSULE BY MOUTH EVERYDAY AT BEDTIME 02/01 completed Not Available Not Available Not Available sertraline 25 mg tablet TAKE 1 TABLET BY MOUTH EVERY DAY 02/01 completed Not Available Not Available Not Available cyanocobala min (vit B-12) 1,[address] 1 TAB UNDER THE TONGUE EVERY DAY FOR ANEMIA FOR 3 MONTHS active Not Available Not Available No t Available diclofenac sodium 50 mg tablet,patricia yed release TAKE 1 TABLET (50 MG TOTAL) BY MOUTH TWICE A DAY NEEDED FOR PAIN DO NOT CRUSH, CHEW, OR SPLIT active Not Available Not Available No t Available gabapentin 100 mg capsule TAKE 1-3 CAPSULES BY MOUTH DAILY BEDTIME 02/01 completed Not Available Not Available Not Available ibuprofen 600 mg tablet TAKE 1 TABLET BY MOUTH EVERY 8 HOURS NEEDED FOR PAIN active Not Available Not Available No t Available methylpredn isolone 4 mg tablets in a dose pack TAKE 6 TABLETS ON DAY 1 DIRECTED ON PACKAGE AND DECREASE BY 1 TAB EACH DAY FOR A TOTAL OF 6 DAYS 02/01 completed Not Available Not Available Not Available ondansetron 4 mg disintegrat ing tablet DISSOLVE 1 TABLET ON THE TONGUE EVERY 8 HOURS NEEDED FOR NAUSEA AND VOMITING active Not Available Not Available No t Available sertraline 50 mg tablet TAKE 1 TABLET BY MOUTH EVERY DAY 02/01 completed Not Available Not Available Not Available medroxyprog esterone 150 mg/mL intramuscul ar suspension INJECT 1 MILLILITE R INTO THE SHOULDER, THIGH, OR BUTTOCKS 02/01 completed Not Available Not Available Not Available naproxen 500 mg tablet TAKE 1 TABLET BY MOUTH TWICE A DAY NEEDED FOR MILD PAIN 02/01 completed Not Available Not Available Not Available Ventolin HFA 90 mcg/actuati on aerosol inhaler INHALE 2 PUFFS BY MOUTH EVERY 6 HOURS IF NEEDED FOR SHORTNESS OF BREATH. active Not Available Not Available No t Available Vitamin D3 25 mcg (1,000 unit) capsule TAKE 1 CAPSULE BY MOUTH EVERY DAY AT BEDTIME FOR 3 MONTHS active Not Available Not Available No t Available cyclobenzap rine 5 mg tablet TAKE 1 TABLET BY MOUTH AT BEDTIME NEEDED FOR MUSCLE SPASMS. active Not Available Not Available No t Available cholecalcif ross (vitamin D3) 50 mcg (2,000 unit) capsule TAKE 1 CAPSULE (2,000 UNITS TOTAL) BY MOUTH ONCE DAILY active Not Available Not Available No t Available Vitals None Recorded Social History Question Answer Notes LastModified by Organizat ion Details LastModified Time Tobacco Smoking Status Never Smoker Carin mckee [place] - [facility] 02/01/2025 12:54:29 What Type Of Conference Translator Do You Use? None [email or web address] Information not available 02/01/2025 Do You Have Any Pets? No [email or web address] Information not available 02/01/2025 Are You Passively Exposed To Smoke? No [email or web address] Information not available 02/01/2025 Are There Any Smokers In Your House? No Information not available 02/01/2025 Sex: Unknown Functional Status Question Answer Note LastModified by Organization Details LastModified Time Do you use any illicit or recreational drugs? No [email or web address] Information not available 02/01/2025 Do you or have you ever used any other forms of tobacco or nicotine? No Information not available 02/01/2025 What is your level of alcohol consumption? None [email or web address] Information not available 02/01/2025 What type of noise exposure are you exposed to? noExposureToExcessiveNoise [email or web address] Infor mation not available 02/01/2025 Mental Status None recorded. Family History Nothing Reported. Medical History Condition Response Allergies/Hayfever N Heart Problems N Anxiety Y Tonsil Infections N Emphysema N Migraines Y Thyroid Problems N Glaucoma N Depression Y COPD N Developmental Delay Y Nasal or Sinus Problems Y Anemia Y Immune System Disorder N Anesthesia Complications N Heart Attack (OR) N Other Skin Condition N Diabetes N Rhinitis N Bleeding Disorder N Food Allergy N Arthritis Y Hearing Loss N Hyperlipidemia N Cancer N Stroke N Dementia N Nasal polyps N Asthma N Sleep Disorder Y GERD/Reflux N High Cholesterol N Liver Disease N Headaches Y Fibromyalgia N Hypertension Y Speech Delay Y Kidney Disease N Gynecological HistoryNo gynecological history recorded. Obstetrics History GPAL:G 0 P 0 0 0 0 Past Encounters Encounter ID Performer Location Encounter Start Date Encounter Closed Date Diagnosis/Indication Diagnosis SNOMED-CT Code Diagnosis ICD10 Code Diagnosis IMO Codes Diagnosis Note [id number] Juan Raphael DO [facility] [address] [address] 02/01/2025 12:38:32 02/01/2025 13:31:52 Chronic pharyngitis 709942 J31.2 2578 Hypertroph y of tonsils AND adenoids 96905838 J35.3 185412 Chronic neck pain 263155 3318 107 M54.2 G89.29 709839 Health Concerns Section Related Observation LastModified by Organization Detai ls LastModified Time None Recorded Concern Status LastModified by Organization Details LastModified Time None Recorded Advance Directives Directive None Recorded Payers Insurance Date Sequence Insurance Name Policy Number Policy Marshall Covered Member ID Marshall Member ID Guarantor Name 02/13/2025 1 [facility] (MEDICAID H[facility]) [facility] [employer] [id number] Gabrielle Nguyễn Usama 02/13/2025 1 [facility] (MEDICAID REPLACEMENT - HMO) [employer]IGAIL Gabrielle Gopi Usama [id number] Gabrielle Gopi Usama Notes Date Note Type Note Provider Name and Address Organization Details Recorded Time 02/01/2025 text/html Gabrielle Forrester is a 24-year-old female who presents for evaluation of chronic neck pain and enlarged tonsils. She reports experiencing sharp throat pain since approximately age 19 or 20, which is exacerbated by movement, talking, and swallowing. The pain is described as intermittent, with occasional breaks, but is present most of the time. She denies any history of recurring throat infections. She also notes snoring and occasional choking episodes during sleep. No prior imaging studies have been performed for this issue. Juan Raphael, [address] [address], [place], [address], [place] - [facility] 02/01/2025 13:19:31 OBGyn Episode No OBEpisode recorded.
--- OUTSIDE RECORDS SUMMARY | 2025-02-15 16:48 | XMS_ITS | Encounter Summary ---
Author Organization [facility] Address [address] [place] [address] Care Team Providers Care Blueprint Tracer Name Role Phone Latesha France MD Primary Care Provider [phone] Reason for Visit * Reason Onset Date Comments Abdominal Pain 04/25/2024 Diarrhea 04/25/2024 Encounter Details Date Type Department Care Team (Late st Contact Info) Description 04/25/2024 Nurse Triage Adult Medicine [facility] - [place], [place] [address] [place] [address] Latesha France MD [address] [place] [address] Social History Tobacco Use Types Packs/Day Years [...] used: Abdominal Pain - Female-A-AH * Diana Eduard - 04/25/2024 9:04 AM EST Patient call [...] recently to another state outside of [place], [place], [place], [place], [place], [place], [place]? no o If yes, did you [...] yes, gather 3rd democrat insurance information Third Republican Information: not applicable PCP: Latesha France MD Payor: [facility] [email or web address] PLAN / Plan: [employer]ICA[employer] / Product Type: *No Product type* / documented in this encounter Plan of Treatment Upcoming Encounters Date Type Department Care Team (Late st Contact Info) Description 03/22/2025 3:00 PM EST Office Visit Adult Medicine [facility] - [place], [place] [address] [place] [address] Latesha France MD [address] [place] [address] 04/22/2025 11:10 AM EST Consult [facility] Cardiology Associates - [facility] [address] 300 [facility] 154 [place] [phone] Romeo Renee MD [address] [place] [address] [place] [address] 04/29/2025 2:00 PM EST Clinical Support Obstetrics and Gynecology - [place] 444 [place] [address] 06/13/2025 2:30 PM EDT Office Visit Pulmonology - [place] 175 [facility] 200 [place] [address] Jennifer Kaufman MD 230 [place] [address] 06/26/2025 1:40 PM EDT Office Visit Gastroenterology - [address] 299 [facility] 419 [place] [phone] Yanet Guy, LEANA 299 [facility] 419 [place] [address] documented as of this encounter Visit Diagnoses Not on filedocumented in this encounter Additional Health Concerns Infection Onset Date Last Indicated Resolved Time Respiratory Rule-Out 05/22/2024 05/22/2024 025 7:00 PM EST C. difficile Rule-Out 05/23/2024 05/22/20242024 4:54 PM EST documented as of this encounter Care Teams Blueprint Tracer Relationship Specialty Start Date End Date Latesha France MD 4 [place] [address] PCP - General Internal Medicine 02/13/24 documented as of this encounter
--- OUTSIDE RECORDS SUMMARY | 2025-02-15 16:48 | XMS_ITS | Encounter Summary ---
Author Organization [facility] Address [address] [place] [address] Care Team Providers Care Loftsman/Woman Name Role Phone Latesha France MD Primary Care Provider [phone] Encounter Details Date Type Department Care Team (Late st Contact Info) Description 07/24/2024 Nurse Triage Adult Medicine [facility] 444 [place] [address] Latesha France MD 4 [place] [address] Social History Tobacco Use Types Packs/Day Years [...] 3:00 PM EST Office Visit Adult Medicine [place] [address] [place] [address] Latesha France MD 4 [place], [place] 04/22/2025 11:10 AM EST Consult [facility] - [facility] 154 300 [facility] 154 [place] [phone] Romeo Renee MD [address] [place] [address] [place] [phone] 04/29/2025 2:00 PM EST Clinical Support Obstetrics and Gynecology - [address] [phone] 06/13/2025 2:30 PM EDT Office Visit Pulmonology - [place] 175 [facility] 200 [place] [phone] Jennifer Kaufman MD 230 [place] [phone] 06/26/2025 1:40 PM EDT Office Visit Gastroenterology - [address] [place] [address] 299 [facility] 419 [place] [address] Yanet Guy NP 299 [facility] 419 [place] [address] documented as of this encounter Visit Diagnoses Not on filedocumented in this encounter Care Teams Loftsman/Woman Relationship Specialty Start Date End Date Latesha France MD 4 [place] [address] PCP - General Internal Medicine 02/13/24 documented as of this encounter
--- OUTSIDE RECORDS SUMMARY | 2025-02-15 16:48 | XMS_ITS | Continuity of Care Document ---
Author Organization [place] - [facility], [facility] Address [address] [place] [address] Care Team Providers Care Bird Sitter Name Role Phone EMMY MORILLO Primary Care [...] New Patient 30 2025 10:45A M KAREN ISBAEL Not available Not available Not available Lab None recorded. Referral None recorded. Procedures None recorded. Surgeries None recorded. Imaging CT, neck, soft tissue, w/ contrast 2024 025 [facility] [place], [address] [facility], [facility] [address], [place], [address], 02/13/2025 16:57:32 Medication Orders None recorded. Patient TargetsNo targets recorded. Patient Instructions Encounter Date Encounter Id Patient Instructions Last Modified By Organization Details Last Modified Time 02/01/2025 [id number] - Discuss sleep study with primary care [...] Recorded Time Hypertrophy of tonsils AND adenoids 88101585 Active 2024 [address], [address], [place] - [facility] 5 12:09:04 Chronic pharyngitis 382068 Active 2024 Juan Raphael [address], [address], [facility] - [facility] 5 12:09:04 Chronic neck pain 6050003221679 Active 2024 Juan Raphael [address], [address], [facility] - [facility] 13:19:04 Problem Notes None recorded. Medical [...] mckee [place] - [facility] 02/01/2025 12:54:29 What Type Of Scallop Raker Do You Use? None Information not available 02/01/2025 Do You Have Any Pets? No [email or web address] Information not available 02/01/2025 Are You Passively Exposed To Smoke? No [email or web address] Information not available 02/01/2025 Are There Any Smokers In Your House? No [email or web address] Information not available 02/01/2025 Sex: Unknown Functional Status Question Answer Note LastModified by Organization Details LastModified Time Do you use any illicit or recreational drugs? No [email or web address] Information not available 02/01/2025 Do you or have you ever used any other forms of tobacco or nicotine? No [email or web address] Information not available 02/01/2025 What is your level of alcohol consumption? None Information not available 02/01/2025 What type of noise exposure are you exposed to? noExposureToExcessiveNoise [email or web address] Infor mation not available 02/01/2025 Mental Status None recorded. Family History Nothing Reported. Medical History Condition Response Allergies/Hayfever N Heart Problems N Anxiety Y Tonsil Infections N Emphysema N Migraines Y Thyroid Problems N Glaucoma N Developmental Delay Y Depression Y COPD N Nasal or Sinus Problems Y Anemia Y Immune System Disorder N Anesthesia Complications N Heart Attack (CT) N Other Skin Condition N Diabetes N Rhinitis N Bleeding Disorder N Food Allergy N Hearing Loss N Arthritis Y Hyperlipidemia N Cancer N Stroke N Dementia N Nasal polyps N Asthma N Sleep Disorder Y High Cholesterol N GERD/Reflux N Liver Disease N Headaches Y Fibromyalgia N Hypertension Y Speech Delay Y Kidney Disease N Gynecological HistoryNo gynecological history recorded. Obstetrics History GPAL:G 0 P 0 0 0 0 Past Encounters Encounter ID Performer Location Encounter Start Date Encounter Closed Date Diagnosis/Indication Diagnosis SNOMED-CT Code Diagnosis ICD10 Code Diagnosis IMO Codes Diagnosis Note [id number] Juan Raphael, DO [facility] [address] [address] 02/01/2025 12:38:32 02/01/2025 13:31:52 Chronic pharyngitis 141470 J31.2 2578 Hypertroph y of tonsils AND adenoids 91712237 J35.3 037375 Chronic neck pain 783558 6449 107 M54.2 G89.29 270170 Health Concerns Section Related Observation LastModified by Organization Detai ls LastModified Time None Recorded Concern Status LastModified by Organization Details LastModified Time None Recorded Payers Encounter Date Sequence Insurance Name Policy Number Policy Marshall Covered Member ID Marshall Member ID Guarantor Name 02/01/2025 1 [facility] - HEALTH NET PLAN (MEDICAID HMO) ABIGAIL Forrester [id number] Gabrielle Nguyễn Usama Notes Date Note Type Note Provider [...] been performed for this issue. Juan Raphael, DO [address] [address], [place], [address], [place] - [facility] 02/01/2025 13:19:31 OBGyn Episode No OBEpisode recorded.
--- OUTSIDE RECORDS SUMMARY | 2025-02-15 16:48 | XMS_ITS | Encounter Summary ---
Author Organization [facility] Address [address] [place] [address] Care Team Providers Care Matcher [employer] Name Role Phone Latesha France MD Primary Care Provider [phone] Reason for Visit * Reason Onset Date Comments Med Refill 01/25/2024 Disregard put in to system in older epic for refill Encounter Details Date Type Department Care Team (Late Contact Info) Description 01/25/2024 Telephone Adult Medicine [address] [phone] Latesha France MD [address] [place] [address] [phone] Social History Tobacco Use Types Packs/Day Years [...] 3:00 PM EST Office Visit Adult Medicine [address] [phone] Latesha France MD [address] [place] [address] [phone] 04/22/2025 11:10 AM EST Consult [facility] - [facility] [address] [facility] [address] [place] [phone] Romeo Renee MD [address] [place] [address] [place] [address] 04/29/2025 2:00 PM EST Clinical Support Obstetrics and Gynecology - [place] [address] [place] [address] 06/13/2025 2:30 PM EDT Office Visit Pulmonology - [place] 175 [facility] [address] [place] [phone] Jennifer Kaufman MD [address] [place] [phone] 06/26/2025 1:40 PM EDT Office Visit Gastroenterology - [address] [facility] [address] [place] [address] Yanet Guy, LEANA 299 [facility] [address] [place] [address] documented as of this encounter Visit Diagnoses Not on filedocumented in this encounter Additional Health Concerns Infection Onset Date Last Indicated Resolved Time Respiratory Rule-Out 05/22/2024 05/22/2024 025 7:00 PM EST C. difficile Rule-Out 05/23/2024 05/22/20242024 4:54 PM EST documented as of this encounter Care Teams Matcher Leather [employer] Relationship Specialty Start Date End Date Latesha France MD [address] [place] [address] PCP - General Internal Medicine 02/13/24 documented as of this encounter
--- OUTSIDE RECORDS SUMMARY | 2025-02-15 16:48 | XMS_ITS | Encounter Summary ---
Author Organization [facility] Address [address] [place] [address] Care Team Providers Care Hand Knitter Name Role Phone Latesha France MD Primary Care Provider [phone] Reason for Visit * Reason Onset Date Comments Dizziness 01/10/2025 Nausea 01/10/2025 Abdominal Pain 01/10/2025 Encounter Details Date Type Department Care Team ([facility] st Contact Info) Description 01/10/2025 Telephone Adult Medicine [facility] [address] [place] [address] Latesha France MD [address] [place] [address] Social History Tobacco Use Types Packs/Day Years [...] Her bp has dropped, it was on 10/13/ 4pm 92/47 p71 She feels Med not helping, after eating she feels nauseated Med: Baclofen 10 mg 1.5 mg, three times a day Was seen by Sebastián at [facility] she eulogio call them and let [...] traveled recently to another state outside of [place], [place], [place], [place], [place], [place], [place]? no o If yes, did you quarantine [...] yes, gather 3rd libertarian insurance information Third Republican Information: not applicable PCP: Latesha France MD Payor: [employer] PLAN / Plan: [employer] MEDICAID / Product Type: *No Product type* / documented in this encounter Plan of Treatment Upcoming Encounters Date Type Department Care Team (Late st Contact Info) Description 03/22/2025 3:00 PM EST Office Visit Adult Medicine [place] - [place] [address] [place] [address] Latesha France MD [address] [place], [place] 04/22/2025 11:10 AM EST Consult [facility] - [facility] [address] [facility] [address] [place] [phone] Romeo Renee MD [address] [place] [address] Dr [address] [place] [phone] 04/29/2025 2:00 PM EST Clinical Support Obstetrics and Gynecology - [address] [phone] 06/13/2025 2:30 PM EDT Office Visit Pulmonology - [place] 175 [facility] [address] [place] [address] Jennifer Kaufman MD [address] [place] [phone] 06/26/2025 1:40 PM EDT Office Visit Gastroenterology - [address] [facility] [address] [place] [address] Yanet Guy NP 299 [facility] [address] [place] [address] documented as of this encounter Goals Goal [...] on filedocumented in this encounter Care Teams Hand Knitter Relationship Specialty Start Date End Date Latesha France MD [address] [place] [address] PCP - General Internal Medicine 02/13/24 documented as of this encounter
--- OUTSIDE RECORDS SUMMARY | 2025-02-15 16:48 | XMS_ITS | Encounter Summary ---
Author Organization [facility] Address [address] [place] [address] Care Team Providers Care Mechanic And Welder Name Role Phone Latesha France MD Primary Care Provider [phone] Encounter Details Date Type Department Care Team (Late Contact Info) Description 01/15/2025 Results Follow-Up Adult [address] [phone] Latesha France MD [address] [place] [address] Social History Tobacco Use Types Packs/Day Years [...] 3:00 PM EST Office Visit Adult Medicine [address] [phone] Latesha France MD [address] [place] [phone] 04/22/2025 11:10 AM EST Consult [facility] [address] [facility] [address] [place] [phone] Romeo Renee MD [address] [place] [address] [place] [address] 04/29/2025 2:00 PM EST Clinical Support Obstetrics and Gynecology - [place] [address] [place] [address] 06/13/2025 2:30 PM EDT Office Visit Pulmonology - [place] 175 [facility] [address] [place] [address] Jennifer Kaufman MD [address] [place] [phone] 06/26/2025 1:40 PM EDT Office Visit Gastroenterology - [address] [facility] [address] [place] [phone] Yanet Guy, LEANA 299 [facility] [address] [place] [address] documented as of this encounter Goals Goal [...] on filedocumented in this encounter Care Teams Mechanic And Welder Relationship Specialty Start Date End Date Latesha France MD [address] [place] [address] PCP - General Internal Medicine 02/13/24 documented as of this encounter
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
--- NOTE | 2025-02-15 17:03 | ED.DIZZY ---
HPI - Dizziness General Chief Complaint: Syncope Stated Complaint: near syncopy Time Seen by Provider: 02/15/25 16:41 History of Present Illness ED Provider: morgan ELLIS Narrative: Author / Clinician: Osvaldo Gutierrez MD ? Emergency Medicine Chief Complaint Intermittent bilateral lower-extremity numbness/weakness with acute episode of gait disturbance today. History of Present Illness Patient presents with a 6-month history of episodic bilateral leg numbness and weakness. Earlier today she walked from the clinic entrance to the back of the office and then noted her gait became abnormal with limping followed by inability to feel or voluntarily move either leg. She informed her boyfriend who assisted her into a wheelchair; she reports shaking while outside and remained largely wheelchair-bound afterward. She describes associated upper and lower back pain; she carries a prior diagnosis of osteoarthritis of the spine. No falls or loss of consciousness occurred. She denies jerking or seizure-like activity, and denies emotional upset preceding the episode. Similar episodes have occurred intermittently over the past 6 months. Symptoms yesterday were reportedly worse than today. Neurologic work-up to date includes EMG performed a few weeks ago and prior 48-hour EEGs, all reportedly negative for seizure activity. Migraine had been considered previously. Review of Systems - General: Denies syncope. Reports shaking during episode. - Neurologic: Positive for bilateral leg numbness/weakness; denies seizures, jerking movements, or loss of consciousness; denies headache. - Musculoskeletal: Reports upper and lower back pain; abnormal gait/limping during episode. - Respiratory: Denies cough. Physical Examination Vital Signs: Not available at the time of documentation. Physical Exam: - General: Patient conversant and cooperative in stretcher. - Focused neurologic/musculoskeletal examination performed; detailed strength findings not documented in transcript. Emergency Department Course ? Bedside discussion and focused exam of leg strength. ? Labs ordered: lactic acid level and screen. ? Case complexity and chronicity reviewed; prior EMG and EEG results discussed. ? Counseling provided regarding need for tertiary-center evaluation (e.g, [facility]) for comprehensive neurology work-up. Assessment & Plan Diagnosis: 1. Episodic bilateral lower-extremity numbness and weakness, undifferentiated etiology. 2. Chronic upper and lower back pain secondary to osteoarthritis of spine. Medications ? Lidocaine patches and topical gel for back pain. ? Ibuprofen as needed. ? Phenobarbital ? discontinued 2?3 months ago. No current seizure medications. Disposition Pending lab results and clinical stability, anticipate discharge home with outpatient neurology referral. Related Data Home Medications ?Medication ?Instructions ?Recorded ?Confirmed adapalene 0.1 % topical gel 1 appl topical BEDTIME 09/12/24 12/03/24 benzoyl peroxide 2.5 % topical 1 appl topical BID 09/12/24 12/03/24 cleanser triamcinolone acetonide 0.1 % 1 appl topical BID 09/12/24 12/03/24 topical cream albuterol sulfate 90 mcg/actuation 2 puff inhalation Q6H PRN dyspnea 12/03/24 12/03/24 aerosol inhaler (Ventolin HFA) medroxyprogesterone 150 mg/mL 150 mg IM [id number] 12/03/24 12/03/24 intramuscular suspension (Depo-Provera) gabapentin 300 mg capsule 300 mg PO BID 01/02/25 Previous Rx's ?Medication ?Instructions ?Recorded ondansetron 4 mg disintegrating 4 mg PO Q8H 3 days #9 tabs 06/18/23 tablet [id number] 1 cap PO TID PRN pain #14 caps 06/19/23 50 mg-300 mg-40 mg capsule (Fioricet) acetaminophen 500 mg capsule 1,000 mg (2 x 500 mg) PO .q8 PRN 11/01/24 fever or pain #30 caps ibuprofen 600 mg tablet 600 mg PO Q8H PRN fever or pain 11/01/24 #30 tabs cephalexin 500 mg capsule 500 mg PO TID 7 days #21 caps 11/22/24 cholecalciferol (vitamin D3) 25 25 mcg PO DAILY insufficient 12/27/24 mcg (1,000 unit) capsule vitamin D 3 months #90 caps acetaminophen 325 mg capsule 650 mg (2 x 325 mg) PO Q6H PRN 01/18/25 pain #30 caps ferrous sulfate 325 mg (65 mg 325 mg PO DAILY low iron levels 90 01/20/25 iron) tablet days #90 tabs mecobalamin (vitamin B12) 1,000 1,000 mcg PO DAILY b12 anemia 3 01/21/25 mcg chewable tablet months #90 tabs Allergies Allergy/AdvReac Type Severity Reaction Status Date / Time paper tape Allergy Intermediate Rash Uncoded 02/15/25 16:29 clear tape Allergy Mild Rash Uncoded 02/15/25 16:29 [facility] Past Medical History Medical History Somatization disorder Personality disorder Conversion disorder with seizures or convulsions Seizure Vasovagal syncope Syncope Sinus tachycardia PTSD (post-traumatic stress disorder) Moderate intellectual disabilities Migraine without status migrainosus, not intractable Menorrhagia with regular cycle Hypotension Insomnia Anxiety Migraine Family History Family History Mother Headache Social History Social History Alcohol intake: never Patient Tobacco Use Status: Never used Tobacco Smoked in Last 30 Days: No e-Cigarette/Vaping Use: Never Used Use of substances other than those prescribed or required for medical reasons: No Advance Directives: No Advance Directives Information Provided: No Physical Exam Exam: Exam: EXAM: Gen: Alert, awake, well appearing, well hydrated. Head: Atraumatic Eyes: Anicteric, Normal conjunctiva. ENT: Moist mucosa, no pallor. Neck: Supple. Skin: No observable rash or bruising on exposed or examined skin Respiratory: Breathing comfortably, No distress.Clear to auscultation bilaterally, symmetric chest expansion, No wheeze, rales, ronchi. Cardiovascular: Regular rate and rhythm. No murmurs or rub. Well perfused periphery, warm extremities. No edema. Abdominal: No focal tenderness. Soft, no objective distension. No palpable masses or obvious organomegaly. No guarding, no rebound tenderness or other peritoneal findings. : No flank tenderness. Neuro: Alert. Gross movement of all extremities intact. No objective motor weakness noted. Moves slowly in bed. normal muscle tone. Psych: Calm. Cooperative. MSK: No grossly visible deformity. Vital signs: See flowsheet Vital Signs: Vital Signs: Last Vital Signs Temp 98.9 F 02/15/25 18:48 Pulse 83 02/15/25 18:48 Resp 16 02/15/25 18:48 BP 110/63 02/15/25 18:48 Pulse Ox 100 02/15/25 18:48 O2 Del Method Room Air 02/15/25 18:48 BMI result Body Mass Index 23.5 Medical Decision Making Medical Decision Making MDM Narrative: Medical Decision Makin-year-old female who presents for a recurrent episode similar to multiple episodes she has had in the past where she fears kneels syncopal and paresthesias or heaviness of her legs or inability to move her legs. I personally reviewed previous neurology notes it sounds like this patient has had substantial workup in the past for this and has even been referred to [facility] neurologist who she has not yet followed up with due to insurance issues but the primary working suspicion is that the patient has conversion disorder. Nine find no objective neurologic deficits and the history isn't consistent with a focal or lateral neuromuscular disorder, spinal compression, stroke TIA or other significant or emergent neurologic causes. Preliminary Favored Differential Diagnosis: Conversion disorder, electrolyte derangement, among additional considered etiologies Testing Interpreted Independently: ?See below for details Radiology or Lab testing Results Reviewed: ?See below for details Consults: ?See below for details Independent Historians/External Chart Reviews: ?See below for details Social Determinants of Health Impacting MDM/Planning: ?See below for details Lab Data 02/15/25 17:45 Labs: Lab Results 02/15/25 Range/Units 17:45 Hold Purple Top SEE NOTE Sodium 139 (135-145) mmol/L Potassium 4.0 (3.3-5.1) mmol/L Chloride 109 H (96-108) mmol/L Carbon Dioxide 23 (22-29) mmol/L Anion Gap 11 L (12-20) BUN 7 L (9-16) mg/dL Creatinine 0.60 (0.5-1.4) mg/dL Estim Creat Clear Calc 108.3 Estimated GFR > 60 Random Glucose 98 (60-115) mg/dL Calcium 9.1 (8.4-10.2) mg/dL Magnesium 2.0 (1.6-2.6) mg/dL Discharge Plan Discharge Clinical Impression: Bilateral leg weakness Patient Disposition: Home, Self-Care Instructions: Weakness (ED) Additional Instructions: You were evaluated for recurrent episode of bilateral leg weakness and feeling of near passing out. You had basic lab work and EKG which were reassuring we reviewed your previous neurologic evaluation notes you may need to see another neurologist for 2nd opinion. At this time to we do not find any evidence of acute medical emergency Prescriptions: No Action cholecalciferol (vitamin D3) 25 mcg (1,000 unit) capsule 25 mcg PO DAILY MDD 1000 unit 90 Days Qty: 90 0RF Rx Instructions: take one capsule daily by mouth at bedtime. gabapentin 300 mg capsule 300 mg PO BID ferrous sulfate 325 mg (65 mg iron) tablet 325 mg PO DAILY MDD 325mg 90 Days Qty: 90 3RF Rx Instructions: take one tablet daily by mouth with 1/2 glass of orange juice at lunchtime. If you have stiff stools, remember to drink plenty of water daily. mecobalamin (vitamin B12) 1,000 mcg tablet,chewable 1,000 mcg PO DAILY MDD 1000mcg 90 Days Qty: 90 0RF cephalexin 500 mg capsule 500 mg PO TID 7 Days Qty: 21 0RF ondansetron 4 mg tablet,disintegrating 4 mg PO Q8H 3 Days Qty: 9 0RF [id number] [Fioricet] 50-300-40 mg capsule 1 cap PO TID PRN (Reason: pain) Qty: 14 0RF ibuprofen 600 mg tablet 600 mg PO Q8H PRN (Reason: fever or pain) Qty: 30 0RF acetaminophen 500 mg capsule 1,000 mg PO .q8 PRN (Reason: fever or pain) Qty: 30 0RF acetaminophen 325 mg capsule 650 mg PO Q6H PRN (Reason: pain) Qty: 30 0RF triamcinolone acetonide 0.1 % cream 1 appl topical BID adapalene 0.1 % gel 1 appl topical BEDTIME benzoyl peroxide 2.5 % cleanser 1 appl topical BID medroxyprogesterone [Depo-Provera] 150 mg/mL suspension 150 mg IM [id number] albuterol sulfate [Ventolin HFA] 90 mcg/actuation HFA aerosol inhaler 2 puff inhalation Q6H PRN (Reason: dyspnea) Interventions: ED Discharge Assessment Last Done: 02/15/25 18:48 Discharge Date/Time: 02/15/25 18:48 Print Language: French
[2025-02-15 17:55] VITALS: O2SAT 98
[2025-02-15 18:00] VITALS: BP 110/63; PULSE 83; RESP 16; TEMP 37.2; O2SAT 100
[2025-02-15 18:05] LABS: Anion Gap 11 (12-20); Blood Urea Nitrogen 7 mg/dL (9-16); Calcium 9.1 mg/dL (8.4-10.2); Carbon Dioxide 23 mmol/L (22-29); Chloride 109 mmol/L (96-108); Creatinine Clr Calc Pharmacy 108.3; Estimated Glomerular Filt Rate > 60; Magnesium 2.0 mg/dL (1.6-2.6); Potassium 4.0 mmol/L (3.3-5.1); Sodium 139 mmol/L (135-145)
[2025-02-15 18:48] VITALS: BP 110/63; PULSE 83; RESP 16; TEMP 37.2; O2SAT 100
== END 2025-02-15 18:48 | disposition home or self-care (01) ==
PROVIDERS: Emergency Provider Emergency Medicine; PCP Internal Medicine
DX: M62.81 Muscle weakness (generalized) (principal); R55 Syncope and collapse; R42 Dizziness and giddiness; R26.81 Unsteadiness on feet; M54.50 Low back pain, unspecified; R20.0 Anesthesia of skin; I49.8 Other specified cardiac arrhythmias; M54.6 Pain in thoracic spine; Z79.899 Other long term (current) drug therapy
CPT/HCPCS: 36415; 80048; 83735; 93005; 99285

== ENCOUNTER → 2025-02-15 16:15 | Outpatient (BNV) | payer OTHER, SELFPAY | PROVIDERS: Emergency Provider Emergency Medicine; PCP Internal Medicine; Visit Provider Internal Medicine | DX: R55 Syncope and collapse (principal) | CPT/HCPCS: 93010 ==

== ENCOUNTER 2025-03-05 14:23 | Outpatient (AMB) | payer OTHER, SELFPAY ==
--- NOTE | 2025-03-05 14:30 | A.OFFVIS_ITS ---
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 Interval medical History Pt. states she reviewed her HST and PSG in lab with [facility] in [place] and she had a normal in lab sleep study. She has a stress test pending with cardiology on Apr 11, 2024, at [facility] with Tilt table. Today she has a video on her phone from January her l. leg shakes for 4 hours, had difficulty standing, starts to whimper due to pain in her legs and becomes somnolent, pulse increases to 123, BP is normal. Denies syncope, drooling, biting her tongue or incontinence. Migraines She has chronic migraines usually frontal to parietal throbbing pain 4/10 with photophobia/ phonophobia, n/v and diarrhea. She has balance and gait difficulties, with dizziness, vertigo, the room spins then vasovagal syncope due to stress. She started Fiorect TID for migraines, though sumatriptan is effective and aborts her headaches immediately, frequency has now decreased to 1 or 2 /week. For l. leg pain she which radiates down the side of her leg, she takes acetaminophen and Gabapentin, it is ineffective. Denies burning, cramps, numbness, tingling, pins, needles, and sensory changes. NCS / EMG was normal. RLS Symptoms her legs start to shake bilaterally, coarse tremors for hours L>R, and sponstaneously, during the morning and night. She gets emotionally frust rated, then has a cycle of anxiety with palpitations. She takes Zofran as needed for nausea. She sees a therapist weekly, for 2 years now due to personal familial problems. She sees a therapist for 2 years now due to personal familial problems. She denies smoking cigarettes, MJ and edibles, she denies alcohol use. PMH October 01 48 hour EEG was completed and normal, f/u with Dr. Bravo for Seizure like disorder which started in June 2024, with syncope for 30min, on September 21 went to [facility] by EMT, 1:00AM, had a complete work up, she was shaking, felt cold and passed out for 30 min. She has anemia and her blood sugar was low. She was started on Phenobarbital 30mg po by Dr. Bravo, discontinued due to lack of efficacy. She stopped taking propanolol stopped benzonatate for cough and ketorolac prescribed by her PCP, Dr. France. , she passed out for 15min, boyfriend witnessed her passing out, did not sustain any injury, she had a ctscan of lower abdomen 11/21/2024 which is normal and reviewed with pt today. 11/20/2024 She had jerking moving body movements in the mornings, first one lasted for 40 minutes, witnessed by her boyfriend at 7am. The second episode happened at 9am lasting 25min. She denies vision changes, drooling, syncope, biting her tongue, and felt as if she was not present physically. [facility] Medical History Somatization disorder Personality disorder Conversion disorder with seizures or convulsions Seizure Vasovagal syncope Syncope Sinus tachycardia PTSD (post-traumatic stress disorder) Moderate intellectual disabilities Migraine without status migrainosus, not intractable Menorrhagia with regular cycle Hypotension Insomnia Anxiety Migraine Family History Mother Headache Social History Unable to assess alcohol history related to: Unable to respond Alcohol intake: never Patient Tobacco Use Status: Never used Tobacco e-Cigarette/Vaping Use: Never Used Physical Exam Vital Signs: Last Vital Signs Pulse 106 H 03/05/25 14:34 BP 106/64 03/05/25 14:34 Pulse Ox 99 03/05/25 14:34 Oxygen Delivery Method Room Air 03/05/25 14:34 BMI result Body Mass Index 23.2 Const General: cooperative, comfortable and no acute distress Nutritional Appearance: average body habitus Orientation/consciousness: patient oriented x3 Eyes Pupils: Equal, round and reactive pupils present Neck Neck: Yes full ROM Resp Effort & Inspection: normal respiratory effort and able to speak in complete sentences Neuro Other: Upper and lower ext reflexes are normal. General: patient oriented x3 and moves all extremities Cranial nerves: Yes Facial sensation intact/muscles of mastication intact, Yes Equal, round and reactive pupils present, Yes Normal facial strength present, Yes Midline tongue present, Yes Ability to bilaterally rotate head present and Yes Ability to bilaterally elevate shoulders present Cognition (Neuro): normal cognition Gait exam (Neuro): Normal gait present Motor exam (neuro): 5/5 motor strength present throughout, Pronator motor function not present and Normal motor muscle tone present throughout Coordination: [id number]-vq-rous test normal and Romberg test negative Psych Other: somatization disorder, low mood Appearance: grossly normal Speech and movement: Normal speech and movement present Attitude: Guarded attititude/behavior present Thought process: Normal thought process present Thought content: Normal thought content present Results Reviewed Results Reviewed: EMG/ NCS reviwed with pt. Findings: No significant abnormality noted. Impression: No significant abnormality noted on this study to suggest neuropathy or radiculopathy. Labs reviewed B12 is 187, homocysteine is normal MMA is elevated 354, start B12 daily sublingual 1000units orally. Ferritin is 22, start iron 325mcg or elemental iron 65mg daily. Assessment & Plan Assessment & Plan (1) Excessive daytime and night-time sleepiness: Comment: psg requested from [facility] Code(s): G47.19 - Other hypersomnia Category: Medical (2) Lumbar pain: Comment: gabapentin 300mg Code(s): M54.50 - Low back pain, unspecified Category: Medical (3) Bilateral headaches: Code(s): R51.9 - Headache, unspecified Category: Medical (4) Somatization disorder: Code(s): F45.0 - Somatization disorder Category: Medical (5) Observed seizure-like activity: Comment: phone videos Code(s): R56.9 - Unspecified convulsions Category: Medical (6) B12 deficiency: Comment: start b12 daily Code(s): E53.8 - Deficiency of other specified B group vitamins Category: Medical (7) Vitamin D insufficiency: Code(s): E55.9 - Vitamin D deficiency, unspecified Category: Medical (8) Low ferritin level: Code(s): R79.0 - Abnormal level of blood mineral Category: Medical Plan HST to r/o inconclusive in lab PSG normal with [facility]. 48 hour EEG reviewed with pt, per Dr. Bravo, seizure like movements for 30 min l. leg and r. hand on phone video. Discussed starting Keppra pt. declined medications today, pending results from stress test for syncope [facility]. Reviewed minimizing stressors, and identifying triggers ie.hunger, thirst, fatigue, along with practicing good sleep hygiene. NO Driving. Polypharmacy discussed with pt. and s/e of taking multiple medications. She discontinued Gabapentin. She was diagnosed with Somatization, Conversion disorder, has a past h/o PTSD due to trauma, anxiety and depressed mood, continue psychotherapy with therapist weekly. Migraines / headaches continue fiorecet for chronic management and Sumatriptan prn for acute onset of migraines. Continue to monitor frequency and severity of migraines on migraine myrna mariah or journal. \ Imaging reviewed with pt. Ctscan, MRI/ 48 hour EEG with NCS / EKG . all normal exams. Labs reviewed with pt. B12 is deficient 187, take b12 sublingually 1000units daily, ferritin is 22, start iron daily 65mg elemental or 325mg with one glass of oj daily. Drink plenty of water, continue vit d daily 1000units at bedtime, magnesium 200-400mg po daily at bedtime and practice good self care and sleep hygiene. Will f/u in 3 months. Medications: New ferrous sulfate 325 mg PO DAILY 90 tabs 0RF magnesium oxide 200 mg PO DAILY 90 tabs 0RF Refilled cholecalciferol (vitamin D3) take one capsule daily by mouth at bedtime. 25 mcg PO DAILY 90 caps 0RF insufficient vitamin D 3 months MDD 1000 unit E55.9 - Vitamin D deficiency, unspecified mecobalamin (vitamin B12) 1,000 mcg PO DAILY 90 tabs 0RF b12 anemia 3 months MDD 1000mcg E53.8 - Deficiency of other specified B group vitamins, R79.89 - Other specified abnormal findings of blood chemistry Patient Instructions: Sleep Hygiene provided: set a scheduled bedtime and wake time to help regulate the circadian rhythm and balance the release of pituitary hormones. Sleep in a dark room, temperatures below 68 degrees, and no devices n bed. Limit caffeinated products 6 hours prior to bed, and limit fluids 2-4 hours prior to bed. Gentle night yoga, diffusing essential oils, and playing soft music can be relaxing. Preventative migraine therapy CGRP inhibition by decreasing the inflammation on the trigeminal neurons: The G-pants Sumatriptan, Rizatriptan, Ellatriptan at acute onset of migraines. Triptans 1 tablets with onset of migraine. If migraine does not abort, may repeat one more tablet 2 hours later as needed. Do not exceed 4 tablets in a 24 hour period. Chronic Migraine Prevention: may use daily as prescribed. Amytriptyline, Topiramate or fiorecet, along with Ibuprofen OTC 400-600mg PO PRN, May put on your migraine cap, and lie down for 15-30min in a dark, quiet room. May use peppermint oil on the temples as needed. Drink at least 50% of body weight in water. Take your supplements daily, Vit D 1000 units, Vit B12 sublingually 1000units, magnesium 200 mg at bedtime, Ferrous sulfate 325mg po daily with OJ. Drink plenty of water. No driving, and practice good self care and good sleep hygiene, volunteering and socializing with friends and or family. EEG / EMG/ NCS / CTscan / Labs reviewed today. requested PSG in lab from [facility]. Coding Level of Care Code Est Pt Level 4 (66425) Diagnoses Excessive daytime and night-time sleepiness G47.19 Lumbar pain M54.50 Bilateral headaches R51.9 Somatization disorder F45.0 Observed seizure-like activity R56.9 B12 deficiency E53.8 Vitamin D insufficiency E55.9 Low ferritin level R79.0 Time Spent (min) 40 Comment pt may f/u in 3 months as needed.
[2025-03-05 14:34] VITALS: BP 106/64; PULSE 106; O2SAT 99; BMI 23.2
== END 2025-03-05 16:28 | disposition home or self-care (01) ==
LOC: HO.HSMS 14:23
PROVIDERS: PCP Internal Medicine; Visit Provider Physician Assistant Medical
DX: G47.19 Other hypersomnia (principal); M54.50 Low back pain, unspecified; R51.9 Headache, unspecified; F45.0 Somatization disorder; R56.9 Unspecified convulsions; E53.8 Deficiency of other specified B group vitamins; E55.9 Vitamin D deficiency, unspecified; R79.0 Abnormal level of blood mineral
CPT/HCPCS: 99214

== ENCOUNTER → 2025-03-05 14:23 | Outpatient (BNVA) | payer OTHER, SELFPAY | PROVIDERS: PCP Internal Medicine; Visit Provider Physician Assistant Medical | DX: F45.0 Somatization disorder (principal); R51.9 Headache, unspecified; R56.9 Unspecified convulsions; G47.19 Other hypersomnia; M54.50 Low back pain, unspecified; E53.8 Deficiency of other specified B group vitamins; E55.9 Vitamin D deficiency, unspecified; R79.0 Abnormal level of blood mineral | CPT/HCPCS: 99212 ==